=== PATIENT | female | born 1970 | race Caucasian/White ===

== ENCOUNTER 2025-07-22 10:03 | Outpatient (AMB) | payer MEDICARE, MEDICAID, SELFPAY ==
--- NOTE | 2025-07-22 10:30 | MHC.PC.OV ---
Vital Signs 07/22/25 10:59 Height 5 ft 2 in Weight 369 lb 4 oz BMI 67.5 BP 142/78 H Blood Pressure Location Lt femoral Position Sitting Respiration 12 Pulse 86 Pulse Source Pulse Oximeter Temp 97.2 F Temp Source Oral Pulse Oximetry (%) 98 Oxygen Delivery Method Room Air Intake Visit Reasons: [employer] // Diabetes Intake Note: New patient to establish care Radiology Teacher Required: No Allergies lamotrigine (From Lamictal) Allergy (Severe, Verified 07/22/25 10:55) Muscle Pain lithium Allergy (Severe, Verified 07/22/25 10:55) seizures omalizumab (Xolair) Allergy (Severe, Verified 07/22/25 10:34) anaphylaxis Sulfa (Sulfonamide Antibiotics) Allergy (Severe, Verified 07/22/25 10:34) anaphylaxis sulfamethoxazole (From Bactrim) Allergy (Severe, Verified 07/22/25 10:55) Anaphylaxis sumatriptan Allergy (Severe, Verified 07/22/25 10:51) Unknown trimethoprim (From Bactrim) Allergy (Severe, Verified 07/22/25 10:55) Anaphylaxis vortioxetine (From Trintellix) Allergy (Severe, Verified 07/22/25 10:55) serotin toxicity amoxicillin Allergy (Unknown, Verified 07/22/25 10:34) Unknown azithromycin (Zithromax) Allergy (Unknown, Verified 07/22/25 10:34) Unknown furosemide (Lasix) Allergy (Unknown, Verified 07/22/25 10:34) Unknown hydrochlorothiazide Allergy (Unknown, Verified 07/22/25 10:34) Unknown lisinopril Allergy (Unknown, Verified 07/22/25 10:34) Unknown metformin Allergy (Unknown, Verified 07/22/25 10:34) Unknown montelukast (Singulair) Allergy (Unknown, Verified 07/22/25 10:34) Unknown penicillin G Allergy (Unknown, Verified 07/22/25 10:34) Unknown pravastatin Allergy (Unknown, Verified 07/22/25 10:34) Unknown spironolactone Allergy (Unknown, Verified 07/22/25 10:34) Unknown sulfacetamide Allergy (Unknown, Verified 07/22/25 10:34) Unknown gabapentin Allergy (Verified 07/22/25 10:55) night sweats zolair Allergy (Severe, Uncoded 07/22/25 10:55) Anaphylaxis JAYRO INHIBITORS Allergy (Unknown, Uncoded 07/22/25 10:34) Unknown LATEX Allergy (Unknown, Uncoded 07/22/25 10:34) Unknown NSAIDS Allergy (Unknown, Uncoded 07/22/25 10:34) Unknown SHELLFISH Allergy (Unknown, Uncoded 07/22/25 10:34) Unknown Sulfacet-R Allergy (Unknown, Uncoded 07/22/25 10:34) Unknown TREE NUTS Allergy (Unknown, Uncoded 07/22/25 10:34) Unknown Medication List - Last Reviewed 07/22/25 by Bharati Fernandez MA albuterol sulfate 2.5 mg inhalation Q6H PRN alcohol swabs (Alcohol Prep Pads) 1 pad topical TID amlodipine 5 mg PO DAILY ammonium lactate 12% topical atorvastatin 20 mg PO QAM blood sugar diagnostic (FreeStyle Precision Qasim Strips) As directed clonazepam 1 mg PO TID PRN epinephrine 0.3 mL IM ONCE insulin aspart (niacinamide) 100 unit/mL (3 mL) (Fiasp FlexTouch U-100 Insulin) subcut insulin aspart U-100 (Novolog FlexPen U-100 Insulin aspart) 8 - 10 units subcut BID insulin glargine (Basaglar KwikPen U-100 Insulin) 82 units subcut BEDTIME lancets (FreeStyle Lancets) As directed lancets (OneTouch Delica Plus Lancet) As directed levalbuterol tartrate 45 mcg/actuation 2 puffs inhalation Q4-6H levothyroxine 200 mcg PO DAILY levothyroxine 37.5 mcg PO QAM losartan 100 mg PO DAILY mupirocin 2% topical BID pen needle, diabetic (Fidelia 2nd Gen Pen Needle) As directed triamcinolone acetonide 0.1% topical vilazodone (Viibryd) 20 mg PO DAILY vilazodone (Viibryd) 10 mg PO DAILY Tobacco use date assessed: 07/22/25 Dental Screening Dental Screen Date: 07/22/25 Did you have a dental visit in the last 12 months?: Yes Did you have a dental problem in the last 6 months where you did not have access to dental care?: No Was dental information given to patient?: Patient has dentist HPI HPI Comments History of Present Illness Details Qiana 55 y/o F with bilat knee OA, lymphedema, MIRIAN, MDD, DM2 with complications, neuropathy, GERD, HLD, HTN, Hypothyroid, Migraine, Asthma, Urinary incont, CORRINA on CPAP, PCOS, PTSD, Rosacea, Schizoaffective disorder, Seasonal allergies, obesity, Vit D Def, menopause s/p c section, right knee arthroscopy, tonsillectomy Fhx:Mom stroke, DM, heart dz, htn, throid s/p CO; Dad lung ca + smoker; brother alive and well; 2 dtrs one w/ autism 1 with anxiety Health Maintenance Tdap 2023 Pap 07/2023 wnl Mammo 04/25/25 colon casas Specialists: Allergy Dr [facility] Pulm [facility] rehab for lymphedema and hearing center [place] Endo - [facility] referral [facility], Dr Amy Segura in [place], Eye exam 06/2025 @ [facility] Negative for retinopathy, + narrow angle w/o glaucoma DME: CPAP [facility] History of Present Illness - The patient is a 55-year-old female presenting to [facility] with a complex medical hx; previous PCP [facility] records rec'd and reviewed - She reports recent abnormal laboratory results done at [facility]. 07/16/25. I dont have these but have requested & was able to review after the visit. See below. - Diabetes management history: HBA1c improved from 8% in November to 7.1% in June. Weight reduced from 394 to 370 pounds from November to June. - Patient utilizes CGM for diabetes tracking. - managed by [facility] endo in past; wants referral to [facility] endo. 06/16/25 7.1% - Recent diabetic eye exam showed risk for angle closure glaucoma. - Requests referral for diabetic foot care - Psych managed by outside prescriber. Reports serotonin syndrome in the past. - Multiple med allergies - Previous PCP sent her a message to have UA, BNP, Blood cultures, Anti neutrophil cytoplasimic drawn to f/u on labs 07/20/25. I have ordered thse for her - CORRINA on CPAP managed; after the visit she called referrals asking for referral to [facility] Sleep/Neuro. Will hold of until she clarifies this as she is scheduled to see neuro in [facility] for initial consult and has a Sleep/Pulm MD Review of Systems - Constitutional: Reports fatigue and stress. - Endocrinological: Reports prior endocrinological issues; concerns about medication misprescription. - Ophthalmological: Reports narrow ducts but reassured by retinal specialist. - Cardiovascular: Reports family history of congestive heart failure; heart murmur identified. - Metabolic: Reports hyperglycemia, weight loss, and CGM use for diabetes management. - Musculoskeletal: Reports rheumatoid arthritis testing. - Integumentary: Reports leg cramps and nail care issues. - Neurological: Denies recent neurological evaluations. - Psychiatric: Reports ongoing stress and therapy for mood. Physical Exam General: Well developed, well nourished, in no acute distress. Appears stated age. Head: Normocephalic, atraumatic. Eyes: Pupils are equal, round and reactive to light and accommodation. Conjunctivae are clear. Lungs: Clear to auscultation bilaterally. No rales, rhonchi or wheeze noted. Good air flow in all talbert. Heart: Regular rate and rhythm. A heart murmur is noted. Musculoskeletal: Walks w/ walker, slow steady gait; Lymphedema wraps BLE. Not removed for exam. Psych: Mood and affect appropriate. Reports stress and frustration with previous medical care. Results: 07/20/25 wbc 12.4, Neutrophils 7.7, Lymphs 3.8, Bun 26, Albumin 3.7, otherwise normal CMP and CBC, TSH 0.293, Rheum Factor, Anti-CCP Ab, IgG/IgA WNL, ROEL negative Discussion Notes I discussed with the patient the importance of reviewing abnormal lab results and the need for endocrinological consultation. I emphasized the plan to obtain laboratory records to provide a comprehensive assessment. Follow-up will ensure diabetes continues to be well-managed, noting recent improvements in blood glucose levels. We discussed endocrinological consultation to adjust her care plan, particularly for diabetes care and weight management. I acknowledged her past issues with medication prescriptions and agreed to review these. I highlighted that heart murmur auscultation warranted further evaluation with echocardiography. Additionally, I assured her a diabetic foot care referral and the importance of diligent eye exams given her glaucoma risk. We agreed on referrals for additional care services within our network and follow-ups in two weeks to ensure a coordinated care approach. Consent was duly obtained to make referrals and conduct further necessary diagnostic testing, with the patient informed of potential risks and management plans. Patient was given time to ask questions. All questions were answered to their satisfaction. Assessment and Plan 1. Abnormal laboratory results - Obtain and review prior results; plan endocrinological evaluations. - labs reviewed, see above. plan to check UA, BNP, Blood cultures, Anti neutrophil cytoplasimic per previous PCP 2.DM2 - Use CGM, monitor HBA1c; [facility] endo referral 3. Obesity - Support weight management 4. Risk for glaucoma - Ensure periodic follow-up; emphasize glaucoma risk management. 6. Heart murmur - Request echocardiography for cardiovascular assessment. 7. Diabetic foot care - Referral for diabetic foot care initiated. Patient Instructions - Schedule follow-up appointment in two weeks. - Complete referrals for endocrinology and foot care. - Attend echocardiography as scheduled. - Monitor blood sugar regularly using CGM. - Ensure regular eye exams for glaucoma risk. - Follow any dietary or lifestyle advice from the student success advisor. - Contact us if you experience new or worsening symptoms, or have any concerns. Consent Patient was informed and verbally consented to the use of an ambient scribe for clinic note documentation during this visit. Total time spent caring for the patient today was 100 minutes. This includes time spent before the visit reviewing the chart, time spent during the visit, and time spent after the visit on documentation, reviewing laboratory results, diagnostic imaging, medications, performing a medically necessary evaluation, counseling on diagnoses, care coordination, ordering appropriate tests, ordering appropriate medications, review of tests performed by other providers, reporting test results with the patient, communication with other healthcare providers. [facility] Medical History (Updated 07/24/25 @ 16:51 by Marian Lomeli, [facility]) Anxiety and depression Arthritis Asthma Diabetes Edema GERD (gastroesophageal reflux disease) Headache High cholesterol HTN (hypertension) Hx of mammogram (~04/2025) IBS (irritable bowel syndrome) Incontinence Neuropathy Osteoarthritis Panic disorder Swelling Thyroid disorder Torn meniscus Surgical History (Updated 07/22/25 @ 11:08 by Bharati Fernandez MA) History of tonsillectomy Hx of colonoscopy (~2018) Previous section Family History (Updated 07/22/25 @ 11:13 by Bharati Fernandez MA) Mother Asthma HTN (hypertension) High cholesterol Diabetes Cardiovascular disease Thyroid disorder Mental health disorder Maternal Grandmother HTN (hypertension) High cholesterol Cardiovascular disease Father High cholesterol Cardiovascular disease Lung cancer Mental health disorder Paternal Grandfather No problems noted. Maternal Grandfather Cardiovascular disease Paternal Grandmother Leukemia Social History (Updated 07/22/25 @ 10:30 by Bharati Fernandez MA) Housing: House Alcohol intake: never Patient Tobacco Use Status: Never used Tobacco e-Cigarette/Vaping Use: Never Used Second Hand Smoke Exposure: No Current occupational status: disabled Cognitive needs: No Hearing needs: Yes (left hearing aide) Vision needs: Yes (wear glasses) Questionnaire PHQ-9 Over the last 2 weeks, how often have you been bothered by any of the following problems? 1. Little interest or pleasure in doing things: not at all 2. Feeling down, depressed, or hopeless: not at all 3. Trouble falling or staying asleep, or sleeping too much: nearly every day 4. Feeling tired or having little energy: nearly every day 5. Poor appetite or overeating: several days 6. Feeling bad about yourself - or that you are a failure or have let yourself or your family down: not at all 7. Trouble concentrating on things, such as reading the newspaper or watching television: more than half the days 8. Moving or speaking so slowly that other people could have noticed. Or the opposite - being so fidgety or restless that you have been moving around a lot more than usual: several days 9. Thoughts that you would be better off or of hurting yourself in some way: not at all Total score: 10 Depression Screening Interpretation: Positive Depression Screening Follow-up: Existing condition and In treatment Depression Screening Done: Yes 20811 - PHQ-9 Billing: Yes Source: Developed by Drs. Timbo Newman, Gin Correa, Sunday Chirinos and colleagues, with an educational lauri from [employer]. Thrive Questionnaire Date Thrive assessed: 07/22/25 I am a: Patient What is your living situation today?: I have a steady place to live Within the past 12 months, did the food you bought not last and you didn't have the money to get more?: Often true Within the past 12 months, did you worry whether your food would run out before you got money to buy more?: Often true Do you have trouble paying for medicines?: No Do you have trouble getting transportation to medical appointments?: Yes Do you have trouble paying your heating and electricity bill?: Yes Do you have trouble taking care of your child, family member or friend?: No Do you have trouble with day-to-day activities such as bathing, preparing meals, shopping, managing finances, etc.?: No Are you currently unemployed and looking for a job?: No Are you interested in more education?: No Please select the resources that you would like help with: None Currently or been in a relationship where the following occur: No concerns reported THRIVE Score: 4 AUDIT C Alcohol Use Questionnaire (AUDIT-C) 1. How often do you have a drink containing alcohol?: Never 2. How many drinks containing alcohol do you have on a typical day when you are drinking?: 1 or 2 3. How often do you have six or more drinks on one occasion?: Never Total Score: 0 Score Reviewed/Action Taken: Yes MIRIAN-7 AMB Questionnaire MIRIAN-7 Date MIRIAN - 7 assessed: 07/22/25 Feeling nervous, anxious, or on edge: 3 = Nearly every day Not being able to stop or control worryin = Nearly every day Worrying too much about different things: 3 = Nearly every day Trouble relaxin = Nearly every day Being so restless that it is hard to sit still: 3 = Nearly every day Becoming easily annoyed or irritable: 3 = Nearly every day Feeling afraid as if something awful might happen: 2 = More than half the days Total MIRIAN-7 score (0-4 normal; 5-9 mild; 10-14 moderate; 15-21 severe): 20 Source: Developed by Drs. Timbo Newman, Gin Correa, Sunday Chirinos and colleagues, with an educational lauri from [employer]. MIRIAN-7 Assessment Billing MIRIAN-7 Assessment Tool: MIRIAN-7 Assessment 08508 Physical exam (Primary Care) Vital Signs: Last Vital Signs Temp 97.2 F 07/22/25 10:59 Pulse 86 07/22/25 10:59 Resp 12 07/22/25 10:59 BP 142/78 H 07/22/25 10:59 Pulse Ox 98 07/22/25 10:59 Oxygen Delivery Method Room Air 07/22/25 10:59 BMI result Body Mass Index 67.5 Tobacco/Smoking Status: Tobacco use Status Tobacco use date assessed 07/22/25 07/22/25 10:34 Patient Tobacco Use Status Never used Tobacco 07/22/25 10:34 e-Cigarette/Vaping Use Never Used 07/22/25 11:00 PHQ-9: PHQ-9 Score PHQ-9: Total score 10 07/24/25 14:56 Depression Screening Interpretation: Positive Depression Screening Follow-up: Existing condition and In treatment Thrive Assessment: Date of Thrive Assessment Date Thrive assessed 07/22/25 07/22/25 10:34 Currently or been in a relationship where the following occur: No concerns reported Coding Level of Care Code New Pt Level 5 (89179) Complex EM visit Add On G2211 Diagnoses Encounter to establish care with new provider Z76.89 BMI 60.0-69.9, adult Z68.44 Diabetes mellitus with complication E11.8 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 E06.3 Hypothyroidism type: due to Gene's thyroiditis Uses self-applied continuous glucose monitoring device Z97.8 Diabetic polyneuropathy associated with type 2 diabetes mellitus E11.42 Diabetes mellitus complication detail: diabetic polyneuropathy Diabetes mellitus type: type 2 Heart murmur on physical examination R01.1 MIRIAN (generalized anxiety disorder) F41.1 Moderate episode of recurrent major depressive disorder F33.1 Major depression episode severity: moderate Schizoaffective disorder, bipolar type F25.0 Schizoaffective disorder type: bipolar Lymphedema I89.0 Hyperlipidemia associated with type 2 diabetes mellitus E11.69; E78.5 Hypertension complicating diabetes E11.9; I10 Migraine without aura and without status migrainosus, not intractable G43.009 Intractability: not intractable Status migrainosus presence: without status migrainosus Mild intermittent asthma in adult without complication J45.20 Multiple drug allergies Z88.9 Mixed stress and urge urinary incontinence N39.46 Urinary Incontinence type: mixed stress and urge incontinence CORRINA on CPAP G47.33 Vitamin D deficiency E55.9 Encounter for brief counseling about health care proxy document Z71.89 Does mobilize using orthotic device Z99.89 Low serum cortisol level R79.89 Elevated WBC count D72.829 CPT Codes PROLONG OUTPT/OFFICE VIS - G2212 Additional Codes MIRIAN-7 Assessment Billing - MIRIAN-7 Assessment Tool: MIRIAN-7 Assessment 49014 ([id number]) PHQ-9 - 96143 - PHQ-9 Billing: Yes ([id number]) Assessment & Plan Assessment & Plan (1) Encounter to establish care with new provider: Code(s): Z76.89 - Persons encountering health services in other specified circumstances Category: Medical (2) BMI 60.0-69.9, adult: Code(s): Z68.44 - Body mass index [BMI] 60.0-69.9, adult Category: Medical (3) Diabetes mellitus with complication: Comment: neuropathy and HTN refer to [facility] Eye Exam 2024 Refer to [facility] podiatry for foot care Code(s): E11.8 - Type 2 diabetes mellitus with unspecified complications Category: Medical (4) Hypothyroid: Code(s): E03.9 - Hypothyroidism, unspecified Category: Medical Qualifiers: Hypothyroidism type: due to Gene's thyroiditis Qualified Code(s): E06.3 - Autoimmune thyroiditis (5) Uses self-applied continuous glucose monitoring device: Comment: CGM Code(s): Z97.8 - Presence of other specified devices Category: Medical (6) Diabetic neuropathy: Code(s): E11.40 - Type 2 diabetes mellitus with diabetic neuropathy, unspecified Category: Medical Qualifiers: Diabetes mellitus complication detail: diabetic polyneuropathy Diabetes mellitus type: type 2 Qualified Code(s): E11.42 - Type 2 diabetes mellitus with diabetic polyneuropathy (7) Heart murmur on physical examination: Code(s): R01.1 - Cardiac murmur, unspecified Category: Medical (8) MIRIAN (generalized anxiety disorder): Comment: MANAGED BY OUTSIDE PRESCRIBER AND COUNSELOR Code(s): F41.1 - Generalized anxiety disorder Category: Medical (9) MDD (major depressive disorder), recurrent episode: Comment: MANAGED BY OUTSIDE PRESCRIBER AND COUNSELOR Code(s): F33.9 - Major depressive disorder, recurrent, unspecified Category: Medical Qualifiers: Major depression episode severity: moderate Qualified Code(s): F33.1 - Major depressive disorder, recurrent, moderate (10) Schizoaffective disorder: Comment: MANAGED BY OUTSIDE PRESCRIBER AND COUNSELOR Code(s): F25.9 - Schizoaffective disorder, unspecified Category: Medical Qualifiers: Schizoaffective disorder type: bipolar Qualified Code(s): F25.0 - Schizoaffective disorder, bipolar type (11) Lymphedema: Code(s): I89.0 - Lymphedema, not elsewhere classified Category: Medical (12) Hyperlipidemia associated with type 2 diabetes mellitus: Code(s): E11.69 - Type 2 diabetes mellitus with other specified complication; E78.5 - Hyperlipidemia, unspecified Category: Medical (13) Hypertension complicating diabetes: Code(s): E11.9 - Type 2 diabetes mellitus without complications; I10 - Essential (primary) hypertension Category: Medical (14) Migraine without aura: Comment: managed by Neuro in [facility] Code(s): G43.009 - Migraine without aura, not intractable, without status migrainosus Category: Medical Qualifiers: Intractability: not intractable Status migrainosus presence: without status migrainosus Qualified Code(s): G43.009 - Migraine without aura, not intractable, without status migrainosus (15) Mild intermittent asthma in adult without complication: Comment: managed by Pulm at [facility] Code(s): J45.20 - Mild intermittent asthma, uncomplicated Category: Medical (16) Multiple drug allergies: Code(s): Z88.9 - Allergy status to unspecified drugs, medicaments and biological substances Category: Medical (17) Urinary incontinence: Comment: uses incont pads/briefs Code(s): R32 - Unspecified urinary incontinence Category: Medical Qualifiers: Urinary Incontinence type: mixed stress and urge incontinence Qualified Code(s): N39.46 - Mixed incontinence (18) CORRINA on CPAP: Comment: managed by [facility] olga lidia Mary Code(s): G47.33 - Obstructive sleep apnea (adult) (pediatric) Category: Medical (19) Vitamin D deficiency: Code(s): E55.9 - Vitamin D deficiency, unspecified Category: Medical (20) Encounter for brief counseling about health care proxy document: Comment: HCP ON FILE, SCANNED INTO CHART Code(s): Z71.89 - Other specified counseling Category: Medical (21) Does mobilize using orthotic device: Comment: BILAT AFO/LYMPHEDEMA WRAPS/WALKER Code(s): Z99.89 - Dependence on other enabling machines and devices Category: Medical (22) Low serum cortisol level: Code(s): R79.89 - Other specified abnormal findings of blood chemistry Category: Medical (23) Elevated WBC count: Code(s): D72.829 - Elevated white blood cell count, unspecified Category: Medical Plan . Orders: Orders UA CC w/rflx Micro + Cult Today D72.829 - Elevated white blood cell count, unspecified, R30.0 - Dysuria CA echo transthoracic complete 07/22/25 R01.1 - Cardiac murmur, unspecified Blood Culture X2 Today D72.829 - Elevated white blood cell count, unspecified ANCA Vasculitides Today D72.829 - Elevated white blood cell count, unspecified Referrals Endocrinology Referral E11.8 - Type 2 diabetes mellitus with unspecified complications, Z97.8 - Presence of other specified devices Podiatry Referral E11.40 - Type 2 diabetes mellitus with diabetic neuropathy, unspecified Medications: New blood-glucose sensor (FreeStyle Etienne 3 Sensor device) As directed Patient Instructions: Walk-In Care (Urgent Care): We Make it Easy Walk-in for urgent medical issues such as: ? Seasonal Allergies ? Insect Bites ? Cough ? Diarrhea ? Acute Asthma Attacks ? Back, Knee or Joint Pain ? Ear Infection ? Fever without a Rash ? Headaches ? Nausea ? [place] [facility], Rash or Skin Irritation ? Sore Throat ? Sports Physicals ? Vomiting Most insurances are accepted. Patients do not need to be part of the [facility] to seek care at the walk-in clinic. Locations [facility] , [place] [address] ? [phone] [facility] Walk-In Care in [place] provides services to ages 18 and over. Open Sunday-Sunday: 7 a.m. to 5 p.m. and Sunday: 9 a.m. to 3 p.m.* *Hours may vary due to staffing availability. To confirm Walk-In Care hours in [place], please call [phone]. [address] [place] [address] ? [phone] [facility] Walk-In Care in [place] provides services to ages 12 and over. Open Sunday-Sunday: 8 a.m. to 5 p.m. Hours may vary due to staffing availability. To confirm Walk-In Care hours in [place], please call [phone]. LABORATORY SERVICES: [facility] Lab ? Primary Location [address] [place] [address] Sunday through Sunday 6:00 AM ? 5:00 PM Sunday 7:00 AM ? 11:00 AM* [phone] [facility] [facility] Lab is centrally located near the front entrance of the [facility] for easy outpatient access. Convenient parking is provided for outpatients. *Hours may vary due to staffing availability. To confirm Laboratory hours for any location, please call [phone]. Offsite Location For your convenience, we offer offsite laboratory draw stations at the following locations: [address] [place] [address], [facility] ? [facility] [address] [facility], [address], [place] Sunday through Sunday 7:30 AM ? 1:00 PM* [phone] *Hours may vary due to staffing availability. To confirm Laboratory hours for any location, please call [phone]. [place] ? [address] Sunday through Sunday 6:00 AM ? 3:30 PM* Sunday 6:30 AM ? 3 PM* [phone] *Hours may vary due to staffing availability. To confirm Laboratory hours for any location, please call [phone] [place] [address] Sunday through Sunday 7:30 AM ? 4:00 PM* [phone] *Hours may vary due to staffing availability. To confirm Laboratory hours for any location, please call [phone] [place] [address] Sunday through 9:00 AM ? 4:00 PM* *Hours may vary due to staffing availability. To confirm Laboratory hours for any location, please call [phone]. Appointments are not necessary. Walk-ins are welcome. Like all the departments throughout the [facility], our Lab undergoes frequent reviews to ensure the quality and accuracy of test results, and our staff takes special pride in its status as a nationally accredited facility. Patient Portal: [facility] ONE PATIENT. ONE RECORD. BETTER CARE. [facility] & [facility] has a fully integrated, cutting-edge mobile electronic health information system that has revolutionized the way we care for our patients and manage our organization. This system improves communication and coordination enabling us to provide safe, higher-quality care, and an overall positive experience for staff and patients. Our first priority, as always, is to deliver the highest quality care possible. The system is running in the background supporting that priority. This portal is for all [facility] services and practices. If you are experiencing any technical difficulties with enrolling or logging into the Patient Portal please complete the [facility] Patient Portal Technical Support Form. [facility] now offers a new secure on-line interactive tool for patients to review their health information ? ?Patient Portal. This interactive web portal will enable patients and their families to take an active role in their care by providing easy, secure access to their health information via the internet. The Patient Portal provides patients with instant access to their health information, including laboratory results, medications, allergies, demographic information, visit history, and more. In addition to managing their own care, parents and health care proxies with authorized consent will appreciate the ability to access the records of those individuals for whom they provide care. Please note: if you wish to gain access (Proxy) to another patient?s portal, you will be required to come to the Medical Records Department in person at [facility]. Both the patient giving proxy access and the proxy will need to provide photo identification and complete the appropriate authorization. The Patient Portal also allows track their appointments online. The [facility] Patient Portal also saves patients time by allowing them to submit updates to their demographic and contact information prior to their visits. Portal email notifications will also alert patients to any new activity on their portal, such as test results and new appointments. In order to initially enroll in the [facility] Patient Portal, you will need to enter some required information including the following: your [facility] Medical Record number your personal home email address name date of Please note: In order to enroll in the [facility] Patient Portal, we need to have your email address on file in your electronic medical record. ?The email address needs to be specific for one person (yourself) in order for your Portal enrollment to be successful. ?You can update your email address in person with our Registration staff when you are registering for a hospital visit. ?Otherwise, you will need to come to the Health Information Management (Medical Records) Department at [facility]. ?We are open from Sunday ? Sunday from 7:30 a.m. ? 4:30 p.m. ?You will be required to present a photo id. Once you have successfully enrolled in the Patient Portal, you will receive a one-time user id and password for the Portal, sent to your email address. ?This will allow you to log into the Patient Portal within 99 hrs and reset your own logon id and password, and define personal security questions. ?Once your permanent login and password have been set, you can log into the [facility] Patient Portal at any time via the blue button above or from the Portal Logon button on any page of the [facility] website. [facility] and [facility] encourage all of our patients to enroll in Patient Portal as it presents a valuable opportunity for patients and their families to actively participate in their care and stay healthy Welcome to [facility]. ?We look forward to working with you.
[2025-07-22 10:59] VITALS: BP 142/78; PULSE 86; RESP 12; TEMP 36.2; O2SAT 98; BMI 67.5
--- OUTSIDE RECORDS SUMMARY | 2025-07-22 12:11 | XMS_ITS | Encounter Summary ---
Author Organization [employer] Address [address] [facility] 7t [place] [address] Care Team Providers Care Trailhead Construction Worker Name Role Phone Francheska Tucker MADELEINE Primary Care Provider [phone] Lei Thacker Unavailable Unavailable Sharmila Azar DO Primary Care Provider [phone] Inactive/Transferred Primary Care Provider Unava ilable Encounter Details Date Type Department Care Team (Late st Contact Info) Description 12/19/2023 Orders Only [facility] MEDICAL [address] [place] [address] Provider, MD Sharad Social History Tobacco Use Types Packs/Day Years Used Date Smoking Tobacco: Never Passive Smoke Exposure: Never Smokeless Tobacco: Never Alcohol Use Standard Drinks/Week Comments Never 0 (1 standard drink = 0.6 oz pur e alcohol) Alcohol Answer Date Recorded How often do you have a drink containing alcohol ? 0 12/11/2023 How many drinks containing a lcohol do you have on a typical day when you are drinking? 0 12/11/2023 How often do you have six or more drinks on one occasion? 0 12/11/2023 Housing Stability Answer Date Recorded What is your housing situation today? I have ann davis 12/07/[address] you li ve. Do you have problems with any of the following? None of the above 12/07/2023 Food Insecurity Answer Date Recorded Within the past 12 months, y ou worried that your food would run out before you got money to buy more: Never True 12/11/2023 Within the past 12 months,th e food you bought just didn't last and you didn't have enough money to get more: Never True 04/2024 Transportation Answer Date Recorded In the past 12 months, has l ack of transportation kept you from medical appts, meetings, work or from getting things needed for daily living? No 12/11/2023 Intimate Partner Violence Answer Date R ecorded Within the last year, have y ou been afraid of your partner or ex-partner? 2 12/11/2023 Within the last year, have y ou been humiliated or emotionally abused in other ways by your partner or ex-partner? 2 Within the last year, have y ou been kicked, hit, slapped, or otherwise physically hurt by your partner or ex-partner? 2 12/11/2023 Within the last year, have y ou been raped or forced to have any kind of sexual activity by your partner or ex-partner? 2 12/11/2023 Utilities Answer Date Recorded In the past 12 months, has t he electric, gas, oil or water company threatened to shut off services in your home? No 12/11/2023 Depression Answer Date Recorded Patient Health Questionnaire-2 Score 0 12/01/2022 Comments No Sex and Gender Information Value Date Recorded Sex Assigned at Female 10/27/2022 2:45 PM EST Legal Sex Female 8:36 PM EDT Gender Identity Female 10/27/2022 2:45 PM EST Sexual Orientation Straight 11/30/2022 10 :33 AM EST documented as of this encounter Plan of Treatment Not on file documented as of this encounter Procedures Procedure Name Priority Date/Time Associated Diagnosis Comments DIABETES EYE EXAM Routine 03/14/2023 5:12 PM EDT documented in this encounter Results * Diabetes Eye Exam (03/14/2023 5:12 PM EDT) us Historical Provider HEALTH MAINTENANCE Final Result documented in this encounter Visit Diagnoses Not on filedocumented in this encounter Care Teams Trailhead Construction Worker Relationship Specialty Start Date End Date Francheska Tucker FNP [address] [place] [address] PCP - General Family Medicine 10/25/23 11/01/24 Sharmila Azar DO [address] [place] [address] PCP - General Family Medicine 11/02/24 06/17/25 Inactive/Transferred PCP - General 06/18/25 06/18/25 Lei Thacker Health Navigator 09/17/24 documented as of this encounter
--- OUTSIDE RECORDS SUMMARY | 2025-07-22 12:11 | XMS_ITS | Encounter Summary ---
Author Organization [employer] Address [address] [place] [address] 7t [place] [address] Care Team Providers Care Auto Body Service Mechanic Name Role Phone Shilpa Miller CNP Primary Care Provider [phone] Francheska Tucker Primary Care Provider [phone] Lei Thacker Unavailable Unavailable Sharmila Azar DO Primary Care Provider [phone] Inactive/Transferred Primary Care Provider Unava ilable Encounter Details Date Type Department Care Team (Late st Contact Info) Description 01/31/2023 Abstract Pat [facility] MEDICAL [address] [place] [address] Shilpa Miller CNP [address] [place] [address] Social History Tobacco Use Types Packs/Day Years Used Date Smoking Tobacco: Never Smokeless Tobacco: Never Tobacco Cessation:Counseling Given: Not Answered Alcohol Use Standard Drinks/Week Comments Never 0 (1 standard drink = 0.6 oz pur e alcohol) Depression Answer Date Recorded Patient Health Questionnaire-2 Score 0 12/01/2022 Comments No Sex and Gender Information Value Date Recorded Sex Assigned at Female 10/27/2022 2:45 PM EST Legal Sex Female 8:36 PM EDT Gender Identity Female 10/27/2022 2:45 PM EST Sexual Orientation Straight 11/30/2022 10 :33 AM EST COVID-19 Exposure Response Date Recorded In the last 10 days, have yo u been in contact with someone who was confirmed or suspected to have Coronavirus/COVID-19? No / Unsure 02/01/2023 3:58 PM EDT documented as of this encounter Plan of Treatment Not on file documented as of this encounter Visit Diagnoses Not on filedocumented in this encounter Care Teams Auto Body Service Mechanic Relationship Specialty Start Date End Date Shilpa Miller CNP [address] [place] [address] PCP - General Family Medicine 10/16/22 10/24/23 Francheska Tucker FNP [address] [place] [address] PCP - General Family Medicine 10/25/23 11/01/24 Sharmila Azar DO [address] [place] [address] PCP - General Family Medicine 11/02/24 06/17/25 Inactive/Transferred PCP - General 06/18/25 06/18/25 Lei Thacker Health Navigator 09/17/24 documented as of this encounter
--- OUTSIDE RECORDS SUMMARY | 2025-07-22 12:11 | XMS_ITS | Encounter Summary ---
Author Organization [employer] Address [address] [place] [address] 7 [place] [address] Care Team Providers Care Navy Airspace Officer Name Role Phone Lei Thacker Unavailable Unavailable Sharmila Azar DO Primary Care Provider [phone] Inactive/Transferred Primary Care Provider Unava ilable Reason for Visit * Reason Comments Med Refill Encounter Details Date Type Department Care Team (Late st Contact Info) Description 03/02/2025 Refill Pat [facility] MEDICAL [address] [place] [address] Sharmila Azar DO [address] [place] [address] Anxiety; PTSD (post-traumatic stress disorder) Social History Tobacco Use Types Packs/Day Years [...] more drinks on one occasion? 0 12/11/2023 Depression Answer Date Recorded Patient Health Questionnaire-9 Score 10 10/21/2024 Patient Health Questionnaire-9 Score 10 10/21/2024 Last PHQ-9: Questionnaire Data Not on file 1 12/22/2023 Housing Stability Answer Date Recorded What is [...] Answer Date Recorded Patient Health Questionnaire-2 Score 1 10/21/2024 Internet Access Answer Date Recorded Internet Access Q1 Yes 11/01/2024 Internet Access Q2 Not on file 11/01/2024 Education Answer Date Recorded What is the highest level of school you have completed or the highest degree you have received? Some college, no degree 03/15/2024 Comments No Sex and Gender Information Value Date Recorded Sex Assigned at Female 10/27/2022 2:45 PM EST Legal Sex Female 8:36 PM EDT Gender Identity Female 10/27/2022 2:45 PM EST Sexual Orientation Straight 11/30/2022 10 :33 AM EST Occupation Industry Job Start Date Job End Date Unemployeed Not on file Not on file Not on file documented as of this encounter Miscellaneous Notes * Telephone Encounter - Kameron Lombardi - 03/03/2025 1:09 PM EDT Rx was sent in another TE today documented in this encounter Plan of Treatment Not on file documented as of this encounter Visit Diagnoses Diagnosis Anxiety Anxiety state, unspecified PTSD (post-traumatic stress disorder) Posttraumatic stress disorder documented in this encounter Additional Health Concerns Assessment Noted Time PHQ-9 Depression Total Score: 10 10/21/ 024 7:39 AM EST documented as of this encounter Care Teams Navy Airspace Officer Relationship Specialty Start Date End Date Sharmila Azar DO [address] [place] [address] PCP - General Family Medicine 11/02/24 06/17/25 Inactive/Transferred PCP - General 06/18/25 06/18/25 Lei Thacker Health Navigator 09/17/24 documented as of this encounter
--- OUTSIDE RECORDS SUMMARY | 2025-07-22 12:11 | XMS_ITS | Encounter Summary ---
Author Organization [employer] Address [address] [facility] 7t [place] [address] Care Team Providers Care Programmer Engineering And Scientific Name Role Phone Francheska Tucker Primary Care Provider [phone] Lei Thacker Unavailable Unavailable Sharmila Azar DO Primary Care Provider [phone] Inactive/Transferred Primary Care Provider Unava ilable Reason for Visit * Reason Comments Med Change Request Encounter Details Date Type Department Care Team (Late st Contact Info) Description 05/26/2024 Oneyda Stewart [facility] MEDICAL [address] [place] [address] Francheska Tucker FNP [address] [place] [address] Type 2 diabetes mellitus with diabetic polyneuropathy, with long-term current use of insulin ([facility]) Social History Tobacco Use Types Packs/Day Years [...] Answer Date Recorded Patient Health Questionnaire-9 Score 20 03/24/2024 Patient Health Questionnaire-9 Score 20 03/24/2024 Last PHQ-9: Questionnaire Data Not on file 0 03/24/2024 Housing Stability Answer Date Recorded What is [...] Answer Date Recorded Patient Health Questionnaire-2 Score 6 03/24/2024 Education Answer Date Recorded What is the [...] on file documented as of this encounter Plan of Treatment Not on file documented as of this encounter Visit Diagnoses Diagnosis Type 2 diabetes mellitus with diabetic polyneuropathy, with long-term current use of insulin ([facility]) documented in this encounter Additional Health Concerns Assessment Noted Time PHQ-9 Depression Total Score: 20 024 7:38 AM EDT documented as of this encounter Care Teams Programmer Engineering And Scientific Relationship Specialty Start Date End Date Francheska Tucker FNP [address] [place] [address] PCP - General Family Medicine 10/25/23 11/01/24 Sharmila Azar DO [address] [place] [address] PCP - General Family Medicine 11/02/24 06/17/25 Inactive/Transferred PCP - General 06/18/25 06/18/25 Lei Thacker Health Navigator 09/17/24 documented as of this encounter
--- OUTSIDE RECORDS SUMMARY | 2025-07-22 12:11 | XMS_ITS | Encounter Summary ---
Author Organization [employer] Address [address] [place] [address] 7 [place] [address] Care Team Providers Care Field Artillery Operations Man Name Role Phone Lei Thacker Unavailable Unavailable Sharmila Azar DO Primary Care Provider [phone] Inactive/Transferred Primary Care Provider Unava ilable Reason for Visit * Reason Comments Med Change Request Encounter Details Date Type Department Care Team (Late st Contact Info) Description 03/06/2025 Oneyda Stewart [facility] MEDICAL [address] [place] [address] Sharmila Azar DO [address] [place] [address] Type 2 diabetes mellitus with diabetic polyneuropathy, with long-term current use of insulin ([facility]) Social History Tobacco Use Types Packs/Day [...] encounter Miscellaneous Notes * Telephone Encounter - Krysta Mcclure LPN - 03/09/2025 8:38 AM EDT Pa done documented in this encounter Plan of Treatment Not on file documented as of this encounter Visit Diagnoses Diagnosis Type 2 diabetes mellitus with diabetic polyneuropathy, with long-term current use of insulin ([facility]) documented in this encounter Additional Health Concerns Assessment Noted Time PHQ-9 Depression Total Score: 10 024 7:39 AM EST documented as of this encounter Care Teams Field Artillery Operations Man Relationship Specialty Start Date End Date Sharmila Azar DO [address] [place] [address] PCP - General Family Medicine 11/02/24 06/17/25 Inactive/Transferred PCP - General 06/18/25 06/18/25 Lei Thacker Health Navigator 09/17/24 documented as of this encounter
--- OUTSIDE RECORDS SUMMARY | 2025-07-22 12:11 | XMS_ITS | Encounter Summary ---
Author Organization [employer] Address [address] [place] [address] 7t [place] [address] Care Team Providers Care Hop Strainer Name Role Phone Francheska Tucker MADELEINE Primary Care Provider [phone] Lei Thacker Unavailable Unavailable Sharmila Azar DO Primary Care Provider [phone] Inactive/Transferred Primary Care Provider Unava ilable Encounter Details Date Type Department Care Team (Late st Contact Info) Description 06/25/2024 Orders Only [facility] MEDICAL [address] [place] [address] Provider, MD Sharad Social History Tobacco Use [...] the past 12 months, has t he [employer], gas, oil or water [employer] threatened to shut off services in your [...] Associated Diagnosis Comments DIABETES EYE EXAM Routine 05/28/2024 5:27 PM EDT documented in this encounter Results * Diabetes Eye Exam (05/28/2024 5:27 PM EDT) us Historical Provider HEALTH MAINTENANCE Final Result documented in this encounter Visit Diagnoses Not on filedocumented in this encounter Additional Health Concerns Assessment Noted Time PHQ-9 Depression Total Score: 20 024 7:38 AM EDT documented as of this encounter Care Teams Hop Strainer Relationship Specialty Start Date End Date Francheska Tucker FNP [address] [place] [address] PCP - General Family Medicine 10/25/23 11/01/24 Sharmila Azar DO [address] [facility] [place] [address] PCP - General Family Medicine 11/02/24 06/17/25 Inactive/Transferred PCP - General 06/18/25 06/18/25 Lei Thacker Health Navigator 09/17/24 documented as of this encounter
--- OUTSIDE RECORDS SUMMARY | 2025-07-22 12:11 | XMS_ITS | Encounter Summary ---
Author Organization [employer] Address [address] [facility] 7t [place] [address] Care Team Providers Care Farm Reporter Name Role Phone Francheska Tucker Primary Care Provider [phone] Lei Thacker Unavailable Unavailable Sharmila Azar DO Primary Care Provider [phone] Inactive/Transferred Primary Care Provider Unava ilable Reason for Visit * Reason Comments Med Change Request Encounter Details Date Type Department Care Team (Late st Contact Info) Description 2024 Oneyda Stewart [facility] MEDICAL [address] [place] [address] Francheska Tucker FNP [address] [place] [address] Type 2 diabetes mellitus with diabetic polyneuropathy, with long-term current use of insulin ([facility]) Social History Tobacco Use Types Packs/Day [...] encounter Miscellaneous Notes * Telephone Encounter - Dana Hamilton RN - 05/26/2024 4:20 PM EDT Placed call to patient who states she is currently taking Basaglar. documented in this encounter Plan of Treatment Not on file documented as of this encounter Visit Diagnoses Diagnosis Type 2 diabetes mellitus with diabetic polyneuropathy, with long-term current use of insulin ([facility]) documented in this encounter Additional Health Concerns Assessment Noted Time PHQ-9 Depression Total Score: 20 024 7:38 AM EDT documented as of this encounter Care Teams Farm Reporter Relationship Specialty Start Date End Date Francheska Tucker FNP [address] [place] [address] PCP - General Family Medicine 10/25/23 11/01/24 Sharmila Azar DO [address] [place] [address] PCP - General Family Medicine 11/02/24 06/17/25 Inactive/Transferred PCP - General 06/18/25 06/18/25 Lei Thacker Health Navigator 09/17/24 documented as of this encounter
--- OUTSIDE RECORDS SUMMARY | 2025-07-22 12:11 | XMS_ITS | Encounter Summary ---
Author Organization [employer] Address [address] [place] [address] 7t [place] [address] Care Team Providers Care Cafeteria Manager Name Role Phone Francheska Tucker MADELEINE Primary Care Provider [phone] Lei Thacker Unavailable Unavailable Sharmila Azar DO Primary Care Provider [phone] Inactive/Transferred Primary Care Provider Unava ilable Reason for Visit * Reason Onset Date Comments Med Refill 05/21/2024 Encounter Details Date Type Department Care Team (Late st Contact Info) Description 05/21/2024 Refill Pat [facility] MEDICAL [address] [place] [address] Shilpa Miller, MARIA C [address] [place] [address] Type 2 diabetes mellitus with diabetic polyneuropathy, with long-term current use of insulin ([facility]) Social History Tobacco Use Types Packs/Day [...] encounter Miscellaneous Notes * Telephone Encounter - PJ Harmon - 05/23/2024 4:23 PM EDT Left another VM I am going to send a [employer] message. documented in this encounter Plan of Treatment Not on file documented as of this encounter Visit Diagnoses Diagnosis Type 2 diabetes mellitus with diabetic polyneuropathy, with long-term current use of insulin ([facility]) documented in this encounter Additional Health Concerns Assessment Noted Time PHQ-9 Depression Total Score: 20 024 7:38 AM EDT documented as of this encounter Care Teams Cafeteria Manager Relationship Specialty Start Date End Date Francheska Tucker FNP [address] [facility] [place] [address] PCP - General Family Medicine 10/25/23 11/01/24 Sharmila Azar DO [address] [facility] [place] [address] PCP - General Family Medicine 11/02/24 06/17/25 Inactive/Transferred PCP - General 06/18/25 06/18/25 Lei Thacker Health Navigator 09/17/24 documented as of this encounter
--- OUTSIDE RECORDS SUMMARY | 2025-07-22 12:11 | XMS_ITS | Encounter Summary ---
Author Organization [employer] Address [address] [place] [address] 7 [place] [address] Care Team Providers Care Construction Millwright Name Role Phone Lei Thacker Unavailable Unavailable Sharmila Azar DO Primary Care Provider [phone] Inactive/Transferred Primary Care Provider Unava ilable Reason for Visit * Reason Comments Med Change Request Encounter Details Date Type Department Care Team (Late st Contact Info) Description 01/26/2025 Oneyda Stewart [facility] [address] [place] [address] Sharmila Azar DO [address] [place] [address] Type 2 diabetes mellitus with diabetic polyneuropathy, with long-term current use of insulin ([facility]) Social History Tobacco Use Types Packs/Day Years [...] polyneuropathy, with long-term current use of insulin ([facility]) documented in this encounter Additional Health Concerns Assessment Noted Time PHQ-9 Depression Total Score: 10 024 7:39 AM EST documented as of this encounter Care Teams Construction Millwright Relationship Specialty Start Date End Date Sharmila Azar [address] [place] [address] PCP - General Family Medicine 11/02/24 06/17/25 Inactive/Transferred PCP - General 06/18/25 06/18/25 Lei Thacker Health Navigator 09/17/24 documented as of this encounter
--- OUTSIDE RECORDS SUMMARY | 2025-07-22 12:11 | XMS_ITS | Encounter Summary ---
Author Organization [employer] Address [address] [place] [address] 7t [place] [address] Care Team Providers Care Experience Design Director Name Role Phone Francheska Tucker MADELEINE Primary Care Provider [phone] Lei Thacker Unavailable Unavailable Sharmila Azar DO Primary Care Provider Inactive/Transferred Primary Care Provider Unava ilable Reason for Visit * Reason Comments Med Change Request Encounter Details Date Type Department Care Team (Late st Contact Info) Description 01/14/2024 Oneyda Stewart [facility] [address] [place] [id number] Shilpa Miller, RN CARDIOLOGY [address] [place] [address] Type 2 diabetes mellitus with diabetic polyneuropathy, with long-term current use of insulin ([facility]) Social History Tobacco Use [...] AM EST documented as of this encounter Miscellaneous Notes * Telephone Encounter - Luiza Mora CMA - 01/17/2024 8:52 AM EDT Yellow rX was filled out yesterday and faxed to [employer] there was another TE on this. documented in this encounter Plan of Treatment Not on file documented as of this encounter Visit Diagnoses Diagnosis Type 2 diabetes mellitus with diabetic polyneuropathy, with long-term current use of insulin ([facility]) documented in this encounter Care Teams Experience Design Director Relationship Specialty Start Date End Date Francheska Tucker FNP [address] [place] [address] PCP - General Family Medicine 10/25/23 11/01/24 Sharmila Azar DO [address] [place] [address] PCP - General Family Medicine 11/02/24 06/17/25 Inactive/Transferred PCP - General 06/18/25 06/18/25 Lei Thacker Health Navigator 09/17/24 documented as of this encounter
--- OUTSIDE RECORDS SUMMARY | 2025-07-22 12:11 | XMS_ITS | Encounter Summary ---
Author Organization [employer] Address [address] [place] [address] 7t [place] [address] Care Team Providers Care Barber Shop Manager Name Role Phone Francheska Tucker MADELEINE Primary Care Provider [phone] Lei Thacker Unavailable Unavailable Sharmila Azar DO Primary Care Provider [phone] Inactive/Transferred Primary Care Provider Unava ilable Reason for Visit * Reason Comments Med Change Request Encounter Details Date Type Department Care Team (Late st Contact Info) Description 05/12/2024 Oneyda Stewart [facility] [address] [place] [address] Shilpa Miller CNP [address] [place] [address] Psychophysiological insomnia Social History Tobacco Use Types Packs/Day Years [...] Answer Date Recorded Patient Health Questionnaire-9 Score 03/24/2024 Patient Health Questionnaire-9 Score 03/24/2024 Last PHQ-9: Questionnaire Data Not on [...] encounter Miscellaneous Notes * Telephone Encounter - Damaris Wilson - 05/12/2024 2:39 PM EDT Working on PA * Telephone Encounter - Branden Mcclure CMA - 05/12/2024 10:37 AM EDT No formulary medication, pharmacy requesting alternative med. To for alternative or PA for non formulary med. documented in this encounter Plan of Treatment Not on file documented as of this encounter Visit Diagnoses Diagnosis Psychophysiological insomnia Persistent disorder of initiating or maintaining sleep documented in this encounter Additional Health Concerns Assessment Noted Time PHQ-9 Depression Total Score: 024 7:38 AM EDT documented as of this encounter Care Teams Barber Shop Manager Relationship Specialty Start Date End Date Francheska Tucker FNP [address] [place] [address] PCP - General Family Medicine 10/25/23 11/01/24 Sharmila Azar DO [address] [place] [address] PCP - General Family Medicine 11/02/24 06/17/25 Inactive/Transferred PCP - General 06/18/25 06/18/25 Lei Thacker Health Navigator 09/17/24 documented as of this encounter
--- OUTSIDE RECORDS SUMMARY | 2025-07-22 12:11 | XMS_ITS | Encounter Summary ---
Author Organization [employer] Address [address] [facility] 7t [place] [address] Care Team Providers Care Identification And Records Commander Name Role Phone Lei Thacker Unavailable Unavailable Sharmila Azar DO Primary Care Provider [phone] Inactive/Transferred Primary Care Provider Unava ilable Reason for Visit * Reason Onset Date Comments Med Refill 02/09/2025 Encounter Details Date Type Department Care Team (Late st Contact Info) Description 02/09/2025 Refill Pat [facility] [address] [place] [address] Francheska Tucker FNP [address] [place] [address] Type 2 diabetes mellitus with diabetic polyneuropathy (CMS/HCC) Social History Tobacco Use Types Packs/Day Years [...] Diagnosis Type 2 diabetes mellitus with diabetic polyneuropathy (CMS/HCC) documented in this encounter Additional Health Concerns Assessment Noted Time PHQ-9 Depression Total Score: 10 024 7:39 AM EST documented as of this encounter Care Teams Identification And Records Commander Relationship Specialty Start Date End Date Sharmila Azar DO [address] [place] [address] PCP - General Family Medicine 11/02/24 06/17/25 Inactive/Transferred PCP - General 06/18/25 06/18/25 Lei Thacker Health Navigator 09/17/24 documented as of this encounter
--- OUTSIDE RECORDS SUMMARY | 2025-07-22 12:11 | XMS_ITS | Encounter Summary ---
Author Organization [employer] Address [address] [place] [address] 7t [place] [address] Care Team Providers Care Sales Department Manager Name Role Phone Lei Thacker Unavailable Unavailable Sharmila Azar DO Primary Care Provider [phone] Inactive/Transferred Primary Care Provider Unava ilable Reason for Visit * Reason Comments Med Change Request Encounter Details Date Type Department Care Team (Late st Contact Info) Description 12/25/2024 Oneyda Stewart [facility] [address] [place] [address] Sharmila Azar DO [address] [place] [address] Mild intermittent asthma without complication Social History Tobacco Use Types Packs/Day Years [...] Telephone Encounter - Krysta Mcclure LPN - 12/29/2024 11:48 AM EST duplicate documented in this encounter Plan of Treatment Not on file documented as of this encounter Visit Diagnoses Diagnosis Mild intermittent asthma without complication documented in this encounter Additional Health Concerns Assessment Noted Time PHQ-9 Depression Total Score: 10 024 7:39 AM EST documented as of this encounter Care Teams Sales Department Manager Relationship Specialty Start Date End Date Sharmila Azar DO [address] [place] [address] PCP - General Family Medicine 11/02/24 06/17/25 Inactive/Transferred PCP - General 06/18/25 06/18/25 Lei Thacker Health Navigator 09/17/24 documented as of this encounter
--- OUTSIDE RECORDS SUMMARY | 2025-07-22 12:11 | XMS_ITS | Encounter Summary ---
Author Organization [employer] Address [address] [place] [address] 7t [place] [address] Care Team Providers Care Terra Cotta Roofer Helper Name Role Phone Lei Thacker Unavailable Unavailable Sharmila Azar DO Primary Care Provider [phone] Inactive/Transferred Primary Care Provider Unava ilable Reason for Visit * Reason Onset Date Comments Med Refill 01/31/2025 Encounter Details Date Type Department Care Team (Late st Contact Info) Description 01/31/2025 Refill Pat [facility] [address] [place] [address] Francheska Tucker FNP [address] [place] [address] Essential (primary) hypertension Social History Tobacco Use Types Packs/Day Years [...] as of this encounter Visit Diagnoses Diagnosis Essential (primary) hypertension Unspecified essential hypertension documented in this encounter Additional Health Concerns Assessment Noted Time PHQ-9 Depression Total Score: 10 10/21/ 024 7:39 AM EST documented as of this encounter Care Teams Terra Cotta Roofer Helper Relationship Specialty Start Date End Date Sharmila Azar DO [address] [place] [address] PCP - General Family Medicine 11/02/24 06/17/25 Inactive/Transferred PCP - General 06/18/25 06/18/25 Lei Thacker Health Navigator 09/17/24 documented as of this encounter
--- OUTSIDE RECORDS SUMMARY | 2025-07-22 12:11 | XMS_ITS | Encounter Summary ---
Author Organization [employer] Address [address] [place] [address] 7t [place] [address] Care Team Providers Care Floor Surfacer Name Role Phone Francheska Tucker MADELEINE Primary Care Provider [phone] Lei Thacker Unavailable Unavailable Sharmila Azar DO Primary Care Provider [phone] Inactive/Transferred Primary Care Provider Unava ilable Reason for Visit * Reason Comments Med Change Request Encounter Details Date Type Department Care Team (Late st Contact Info) Description 05/12/[address] [facility] [address] [place] [address] Shilpa Miller CNP [address] [place] [address] Psychophysiological insomnia Social History Tobacco Use Types [...] encounter Miscellaneous Notes * Telephone Encounter - Branden Mcclure, CLINICAL DOCUMENTATION SPEC - 05/12/2024 9:56 AM EDT Pt tried and failed Ambien in the past, please initiate a PA through [facility] documented in this encounter Plan of Treatment Not on file documented as of this encounter Visit Diagnoses Diagnosis Psychophysiological insomnia Persistent disorder of initiating or maintaining sleep documented in this encounter Additional Health Concerns Assessment Noted Time PHQ-9 Depression Total Score: 20 024 7:38 AM EDT documented as of this encounter Care Teams Floor Surfacer Relationship Specialty Start Date End Date Francheska Tucker FNP [address] [place] [address] PCP - General Family Medicine 10/25/23 11/01/24 Sharmila Azar DO 73 [place] [address] PCP - General Family Medicine 11/02/24 06/17/25 Inactive/Transferred PCP - General 06/18/25 06/18/25 Lei Thacker Health Navigator 09/17/24 documented as of this encounter
--- OUTSIDE RECORDS SUMMARY | 2025-07-22 12:11 | XMS_ITS | Encounter Summary ---
Author Organization [employer] Address [address] [place] [address] 7 [place] [address] Care Team Providers Care Inside Contractor Sales Name Role Phone Lei Thacker Unavailable Unavailable Sharmila Azar DO Primary Care Provider [phone] Inactive/Transferred Primary Care Provider Unava ilable Reason for Visit * Reason Onset Date Comments Med Refill 02/18/2025 Encounter Details Date Type Department Care Team (Late st Contact Info) Description 02/18/[address] [facility] [address] [place] [address] Sharmila Azar DO [address] [place] [address] Anxiety; PTSD (post-traumatic stress disorder) Social History [...] * Telephone Encounter - Kameron Lombardi - 02/18/2025 2:55 PM EDT Rx was sent in another TE documented in this encounter Plan of Treatment Not on file documented as of this encounter Visit Diagnoses Diagnosis Anxiety Anxiety state, unspecified PTSD (post-traumatic stress disorder) Posttraumatic stress disorder documented in this encounter Additional Health Concerns Assessment Noted Time PHQ-9 Depression Total Score: 10 024 7:39 AM EST documented as of this encounter Care Teams Inside Contractor Sales Relationship Specialty Start Date End Date Sharmila Azar DO [address] [place] [address] PCP - General Family Medicine 11/02/24 06/17/25 Inactive/Transferred PCP - General 06/18/25 06/18/25 Lei Thacker Health Navigator 09/17/24 documented as of this encounter
--- OUTSIDE RECORDS SUMMARY | 2025-07-22 12:12 | XMS_ITS | Patient Health Record ---
Author Organization [employer] [facility] Address [address] [facility] [address] [place] [address] Care Team Providers Care Senior Engineering Manager Name Role Phone Laisha Castañeda Unavailable [phone] Reason For Referral No Information Medications Medication SIG (Take, Route, Frequency, Duration) Notes Start Date End Date Status Viibryd 40MG ORAL; Duration: - [facility] 04/28/2014 Active Vitamin D3 1000 IU ORAL daily; Duration: - [facility] 2013 Active Aspirin EC 81MG 1 ORAL daily; Durati on: - [facility] 04/28/2014 Active Nebulizer ORAL; Duration: - [facility] 04/28/2014 Active oxyCODONE HCl 5MG ORAL; Duration: - [facility] 04/28/2014 Active Pravastatin Sodium 20MG 1 ORAL daily; Du ration: - [facility] 04/28/2014 Active Singulair 10MG ORAL; Duration: - [facility] 04/28/2014 Active Combivent 103-18 2 INHALE four times daily; Duration: - [facility] 04/28/2014 Active KlonoPIN 0.5MG ORAL four times shannon y; Duration: [facility] 04/28/2014 Active Levothyroxine Sodium 125MCG 1 ORAL daily ; Duration: - [facility] 04/28/2014 Active metFORMIN HCl ER 500MG ORAL; Duration: - [facility] 04/28/20 14 Active Problems Problem Type SNOMED Code ICD Code Onset Dates Problem Status W/U Status Risk Notes Problem Hypothyroidism (14803937) Unspecified hypothyroidism (244.9) Active confirmed Problem Type II diabetes mellitus without complication (591130126) Diabetes mellitus without mention of complication, type II or unspecified type, not stated as uncontrolled (250.00) Active confirmed Problem Pure hypercholesterolemia (855672839) Pure hypercholesterolemia (272.0) Active confirmed Problem Morbid obesity (373933052) Morbid obesity (278.01) Active confirmed Problem Schizoaffective disorder (17014394) Schizoaffective disorder, unspecified (295.70) Active confirmed Problem Panic disorder with agoraphobia (20935696) Agoraphobia with panic disorder (300.21) Active confirmed Problem Obsessive-compulsive disorder (654051756) Obsessive-compulsive disorders (300.3) Active confirmed Problem Posttraumatic stress disorder (12648537) Posttraumatic stress disorder (309.81) Active confirmed Problem Attention deficit hyperactivity disorder (334277666) 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) Active confirmed Problem Migraine (disorder) (05801171) Migraine, unspecified without mention of intractable migraine without mention of status migrainosus (346.90) Active confirmed Problem Asthma (disorder) (826951667) Asthma, unspecified, unspecified status (493.90) Active confirmed Problem Sleep apnea (52344991) Unspecified sleep apnea (780.57) Active confirmed Problem Hypertension (36253014) Hypertension (401.9) Active confirmed Plan Of Treatment No Information Insurance Providers Payer Name Payer Address Payer Phone Subscriber Number Group Number Insured Name Patient Relationship to Insured Coverage Start Date Coverage End Date MEDICARE [address] [place] [id number] [phone] [id number] SEBASTIÁN GARCIA Self - patient is the insured Medical (General) History Medical History History ICD Code Agoraphobia with panic disorder Asthma, unspecified, unspecified status Morbid obesity Hypertension Unspecified hypothyroidism Pure hypercholesterolemia Diabetes mellitus without me ntion of complication, type II or unspecified type, not stated as uncontrolled Unspecified sleep apnea Schizoaffective disorder, unspecified Posttraumatic stress disorder Migraine, unspecified withou t mention of intractable migraine without mention of status migrainosus Obsessive-compulsive disorders Attention deficit disorder of childhood with hyperactivity Surgical History Surgery Date(Month/Year) Tonsillectomy 1985 C/S 1992 Knee Surgery 2008
--- OUTSIDE RECORDS SUMMARY | 2025-07-22 12:12 | XMS_ITS | Encounter Summary ---
Author Organization [employer] Address [address] [place] [address] 7t [place] [address] Care Team Providers Care Director Of Staff Development Name Role Phone Lei Thacker Unavailable Unavailable Encounter Details Date Type Department Care Team (Latest Contact Info) Description 07/21/2025 Results Follow-Up [facility] [address] [place] [address] Sharmila Azar DO [address] [place] [address] CBC auto differential, Comprehensive Metabolic Panel [[id number]] Social History Tobacco Use Types Packs/Day Years Used Date Smoking Tobacco: Never Passive Smoke Exposure: Never Smokeless Tobacco: Never Alcohol Use Standard Drinks/Week Comments Never 0 (1 standard drink = 0.6 oz pur e alcohol) Alcohol Answer Date Recorded How often do you have a drink containing alcohol ? 0 06/22/2025 Average Number of Drinks Not on file 025 How often do you have six or more drinks on one occasion? 0 06/22/2025 Depression Answer Date Recorded Patient Health Questionnaire-9 Score 6 06/22/2025 Patient Health Questionnaire-9 Score 6 06/22/2025 Last PHQ-9: Questionnaire Data Not on file 0 06/22/2025 Housing Stability Answer Date Recorded What is [...] Date Recorded Patient Health Questionnaire-2 Score 0 06/22/2025 Internet Access Answer Date Recorded Internet Access [...] as of this encounter Plan of Treatment Scheduled Orders Name Type Priority Associated Diagnoses Orde r Schedule B Type Natriuretic Peptide (BNP) 230405 Lab Routine Low serum albumin Lymphedema Mild intermittent asthma without complication Unspecified abnormalities of breathing Expected: 07/21/2025, Expires: 07/21/2026 Urinalysis Complete Lab Routine Low serum albumin Expected: 07/21/2025, Expires: 07/21/2026 documented as of this encounter Visit Diagnoses Diagnosis Low serum albumin- Primary Lymphedema Other noninfectious lymphedema Mild intermittent asthma without complication Unspecified abnormalities of breathing documented in this encounter Additional Health Concerns Assessment Noted Time PHQ-9 Depression Total Score: 6 06/22/20 25 2:22 PM EDT documented as of this encounter Care Teams Director Of Staff Development Relationship Specialty Start Date End Date Lei Thacker Health Navigator 09/17/24 documented as of this encounter
--- OUTSIDE RECORDS SUMMARY | 2025-07-22 12:12 | XMS_ITS | Encounter Summary ---
Author Organization [employer] Address [address] [place] [address] 7 [place] [address] Care Team Providers Care Fiber Machine Tender Name Role Phone Shilpa Miller CNP Primary Care Provider [phone] Francheska Tucker Primary Care Provider [phone] Lei Thacker Unavailable Unavailable Sharmila Azar DO Primary Care Provider [phone] Inactive/Transferred Primary Care Provider Unava ilable Encounter Details Date Type Department Care Team (Late st Contact Info) Description 11/30/2022 Abstract [place] [facility] [address] [place] [address] Shilpa Miller CNP [address] [place] [address] Social History Tobacco Use Types Packs/Day Years Used Date Smoking Tobacco: Never Smokeless Tobacco: Never Alcohol Use Standard Drinks/Week Comments Never 0 (1 standard drink = 0.6 oz pur e alcohol) Depression Answer Date Recorded Patient Health Questionnaire-2 Score 0 12/01/2022 Comments Unknown Sex and Gender Information Value Date Recorded [...] suspected to have Coronavirus/COVID-19? No / Unsure 12/01/2022 1:34 PM EST documented as of this encounter Functional Status * Over the past 2 weeks, how often have you been bothered by any of the following problems? Question Answer Date of Assessment Author Little interest or pleasure in doing things Not at all 12/01/2022 2:16 PM Alison Sagastume RMA Feeling down, depressed, or hopeless Not at all 12/01/2022 2:16 PM Alison Sagastume RMA Patient Health Questionnaire -2 Score 0 12/01/2022 2:16 PM Alison Sagastume RMA documented as of this encounter Plan of Treatment Not on file documented as of this encounter Visit Diagnoses Not on filedocumented in this encounter Care Teams Fiber Machine Tender Relationship Specialty Start Date End Date Shilpa Miller CNP [address] [place] [address] PCP - General Family Medicine 10/16/22 10/24/23 Francheska Tucker FNP [address] [place] [address] PCP - General Family Medicine 10/25/23 11/01/24 Sharmila Azar DO [address] [place] [address] PCP - General Family Medicine 11/02/24 06/17/25 Inactive/Transferred PCP - General 06/18/25 06/18/25 Lei Thacker Health Navigator 09/17/24 documented as of this encounter
--- OUTSIDE RECORDS SUMMARY | 2025-07-22 12:12 | XMS_ITS | Encounter Summary ---
Author Organization [employer] Address [address] [place] [address] [address]t [place] [address] Care Team Providers Care Manager Molecular Name Role Phone Lei Thacker Unavailable Unavailable Reason for Visit * Reason Comments Med Refill Encounter Details Date Type Department Care Team (Late st Contact Info) Description 07/18/2025 Refill Pat [facility] [address] [place] [address] Francheska Tucker, OUTDOOR EDUCATION TEACHER [address] [place] [address] Social History Tobacco Use Types Packs/Day Years [...] documented as of this encounter Care Teams Manager Molecular Relationship Specialty Start Date End Date Lei Thacker Health Navigator 09/17/24 documented as of this encounter
--- OUTSIDE RECORDS SUMMARY | 2025-07-22 12:12 | XMS_ITS | Encounter Summary ---
Author Organization [employer] Address [address] [place] [address] 7 [place] [address] Care Team Providers Care Oil Well Service Operator Name Role Phone Lei Thacker Unavailable Unavailable Sharmila Azar DO Primary Care Provider [phone] Inactive/Transferred Primary Care Provider Unava ilable Reason for Visit * Reason Onset Date Comments Med Refill 12/11/2024 Encounter Details Date Type Department Care Team (Late st Contact Info) Description 12/11/2024 Refill [place] [facility] [address] [place] [address] Sharmila Azar DO [address] [place] [address] Anxiety; PTSD (post-traumatic stress disorder) Social History [...] Miscellaneous Notes * Telephone Encounter - PJ Blackwood - 12/11/2024 11:24 AM EST Written Script:11/28/24 MassPat Last Fill Date:11/28/24 MassPat Sold Date:11/30/24 Last OV:12/01/24 Next OV:01/01/25 CSA Date:12/01/24 Last Utox:12/01/24 DNF Date: 12/14/24 documented in this encounter Plan of Treatment Not on file documented as of this encounter Visit Diagnoses Diagnosis Anxiety Anxiety state, unspecified PTSD (post-traumatic stress disorder) Posttraumatic stress disorder documented in this encounter Additional Health Concerns Assessment Noted Time PHQ-9 Depression Total Score: 10 024 7:39 AM EST documented as of this encounter Care Teams Oil Well Service Operator Relationship Specialty Start Date End Date Sharmila Azar DO [address] [place] [address] PCP - General Family Medicine 11/02/24 06/17/25 Inactive/Transferred PCP - General 06/18/25 06/18/25 Lei Thacker Health Navigator 09/17/24 documented as of this encounter
--- OUTSIDE RECORDS SUMMARY | 2025-07-22 12:12 | XMS_ITS | Clinical Summary ---
Author Organization [address] [facility] Address [address] [place] [address] Phone Care Team Providers Care Leadership Recruiter Name Role Phone DoeSharmila Sheldon Meade DO Primary Care Provider [phone] Social History Tobacco Use Types Packs/Day Years Used Date Smoking Tobacco: Never Assessed Comments Unknown Sex and Gender Information Value Date Recorded Sex Assigned at Not on file Legal Sex Female 9:03 PM EST Gender Identity Not on file Sexual Orientation Not on file Plan of Treatment Upcoming Encounters Date Type Department Care Team (Late st Contact Info) Description 08/03/2025 10:45 AM EDT Office Visit Orthopedic Surgery - [place] [address] [phone] Ta Wagner, KRUNAL [address] [address] Health Maintenance Due Date Last Done Comments Breast Cancer Screening 1968 Diabetes: Annual GFR (Glomerular Filtration Rate) 1968 Diabetes: Annual Foot Exam 1978 Diabetes: Annual Retina Eye Exam 1978 Zoster Vaccines (1 of 2) 2018 Colorectal Cancer Screening: Colonoscopy 11/30/2023 Hepatitis C Screening 11/30/2023 Medicare Annual Wellness Visit 11/30/2023 Social Influencers of Health Screening 11/30/2023 Depression Screening 11/05/2024 Influenza Vaccine (#1) 2025 , 08/21/2023, 11/01/2022, Additional history exists Hypertension/CHF/CAD Annual BMP Blood Test 07/08/2025 Diabetes: Blood Sugar Control Test (HGBA1C) 12/23/2025 06/22/2025 Diabetes: Annual Urine Albumin-Creatinine Ratio (uACR) 01/01/2026 01/01/2025 Cervical Cancer Screening: Pap Smear 07/17/2026 07/17/2023 Cholesterol Screening (Lipid Panel) 12/11/2028 12/11/2023 DTaP,Tdap,and Td Vaccines (6 - Td or Tdap) 07/18/2034 07/18/2024, 12/24/2014, 10/23/2014, Additional history exists Hepatitis B Vaccines Completed 04/14/2011, 11/15/2010, 10/14/2010 HIV Screening Completed 12/14/2020 Pneumococcal Vaccine: 50+ Years Completed 06/23/2024, 10/08/2015, 02/10/2011, Additional history exists COVID-19 Vaccine Completed 10/01/2024, , 10/20/2021, Additional history exists HIB Vaccines Aged Out No longer eligi ble based on patient's age to complete this topic HPV Vaccines Aged Out No longer eligi ble based on patient's age to complete this topic Hepatitis A Vaccines Aged Out No long er eligible based on patient's age to complete this topic IPV Vaccines Aged Out No longer eligi ble based on patient's age to complete this topic MMR Vaccines Aged Out No longer eligi ble based on patient's age to complete this topic Meningococcal ACWY Vaccine Aged Out N o longer eligible based on patient's age to complete this topic Meningococcal B Vaccine Aged Out No l onger eligible based on patient's age to complete this topic RSV Immunization Patients Under 20 months Aged Out No longer eligible based on patient's age to complete this topic Varicella Vaccines Aged Out No longer eligible based on patient's age to complete this topic Insurance [address] [place] [address] MEDICAID - [place] MEDICARE Care Teams Leadership Recruiter Relationship Specialty Start Date End Date Sharmila Azar DO [address] [place] [address] PCP - General Family Medicine 05/28/25
--- OUTSIDE RECORDS SUMMARY | 2025-07-22 12:12 | XMS_ITS | Encounter Summary ---
Author Organization [employer] Address [address] [place] [address] 7t [place] [address] Care Team Providers Care Animal Caretaker Name Role Phone Francheska Tucker MADELEINE Primary Care Provider [phone] Lei Thacker Unavailable Unavailable Sharmila Azar DO Primary Care Provider [phone] Inactive/Transferred Primary Care Provider Unava ilable Reason for Visit * Reason Comments Med Refill Encounter Details Date Type Department Care Team (Late st Contact Info) Description 03/21/2024 Refill Pat [facility] [address] [place] [id number] Shilpa Miller, PROJECT MANAGER PROCESS DEVELOPMENT [address] [place] [address] Type 2 diabetes mellitus with diabetic polyneuropathy, with long-term current use of insulin ([facility]) Social History Tobacco Use Types Packs/Day [...] on file documented as of this encounter Functional Status * Over the past 2 weeks, how often have you been bothered by any of the following problems? Question Answer Date of Assessment Author Patient Health Questionnaire -2 Score 6 03/24/2024 7:38 AM Shilpa De Leon CNP * If you checked off any problems on this questionnaire so far, Question Answer Date of Assessment Author How difficult have these problems made it for you to do your work, take care of things at home, or get along with other people? Very difficult 03/24/2024 7:38 AM Sonja De Leon CNP * Over the last 2 weeks, how often have you been bothered by any of the following problems? Question Answer Date of Assessment Author Feeling nervous, anxious, or on edge 3 03/24/2024 7:40 AM Shilpa De Leon CNP Not being able to stop or co ntrol worrying 3 03/24/2024 7:40 AM Shilpa De Leon CNP Worrying too much about diff erent things 3 03/24/2024 7:40 AM Shilpa De Leon CNP Trouble relaxing 3 03/24/2024 7:40 AM Shilpa Neal CNP Being so restless that it is hard to sit still 3 03/24/2024 7:40 AM Shilpa De Leon CNP Becoming easily annoyed or irritable 3 03/24/2024 7:40 AM Shilpa De Leon CNP Feeling afraid as if somethi ng awful might happen 3 03/24/2024 7:40 AM Shilpa De Leon CNP MIRIAN-7 Total Score 21 03/24/2024 7:40 AM Shilpa De Leon CNP * Over the past 2 weeks, how often have you been bothered by any of the following problems? Question Answer Date of Assessment Author Little interest or pleasure in doing things Nearly every day 03/24/2024 7:38 AM Shilpa De Leon CNP Feeling down, depressed, or hopeless Nearly every day 03/24/2024 7:38 AM Shilpa De Leon CNP Trouble falling or staying asleep, or sleeping too much Nearly every day 03/24/2024 7:38 AM Shilpa De Leon CNP Feeling tired or having little energy Nearly every day 03/24/2024 7:38 AM Shilpa De Leon CNP Poor appetite or overeating Not at all 03/24/2024 7:38 AM Shilpa De Leon CNP Feeling bad about yourself - or that you are a failure or have let yourself or your family down Nearly every day 03/24/2024 7:38 AM Shilpa De Leon CNP Trouble concentrating on things, such as reading the newspaper or watching television Nearly every day 03/24/2024 7:38 AM hSilpa De eLon CNP Moving or speaking so slowly that other people could have noticed? Or the opposite - being so fidgety or restless that you have been moving around a lot more than usual. More than half the days 03/24/2024 7:38 AM Shilpa De Leon CNP Thoughts that you would be better off or hurting yourself in some way Not at all 03/24/2024 7:38 AM Shilpa De Leon CNP Patient Health Questionnaire-9 Score 20 03/24/2024 7:38 AM Shilpa De Leon CNP documented as of this encounter Plan of Treatment Not on file documented as of this encounter Visit Diagnoses Diagnosis Type 2 diabetes mellitus with diabetic polyneuropathy, with long-term current use of insulin ([facility]) documented in this encounter Additional Health Concerns Assessment Noted Time PHQ-9 Depression Total Score: 24 024 3:40 PM EDT documented as of this encounter Care Teams Animal Caretaker Relationship Specialty Start Date End Date Francheska Tucker FNP [address] [place] [address] PCP - General Family Medicine 10/25/23 11/01/24 Sharmila Azar DO [address] [place] [address] PCP - General Family Medicine 11/02/24 06/17/25 Inactive/Transferred PCP - General 06/18/25 06/18/25 Lei Thacker Health Navigator 09/17/24 documented as of this encounter
--- OUTSIDE RECORDS SUMMARY | 2025-07-22 12:12 | XMS_ITS | Encounter Summary ---
Author Organization [employer] Address [address] [place] [address] 7 [place] [address] Care Team Providers Care Maintenance Mechanic Telephone Name Role Phone Lei Thacker Unavailable Unavailable Reason for Visit * Reason Onset Date Comments [facility] 07/10/2025 Phone Number # [phone] Number # [phone] Encounter Details Date Type Department Care Team (Late st Contact Info) Description 07/10/2025 Telephone Pat [facility] [address] [place] [address] [id number] Pcp, Pat Unassigned [facility] (Phone Number # [phone]/ ) Social History Tobacco Use Types Packs/Day Years [...] t he electric, gas, oil or water [employer] threatened to shut off services in your [...] encounter Miscellaneous Notes * Telephone Encounter - Alison Flores, RMA - 07/21/2025 12:27 PM EDT I called out to [facility] and spoke to shruti Estrella and she talked to Marni in the department that handles the forms for debby and Delores stated, Marni is in the process of sending all paperwork overtjuan Kiran's health insurance for approval for the prior auth to get done to keep receiving her supplies every month. I asked again if this being expedited and she did state its in the notes that we asked for this to be and once its approved from the insurance they will be expediting it to qiana. Delores did mention to me it can take up to 24 hours for the health insurance to review the paperwork. * Telephone Encounter - PJ Blackwood - 07/20/2025 5:14 PM EDT Called back to [facility] to see the status of things. They stated to me they received the fax I sent over everything looked good everything was signed and filled out correctly. The woman did stateto me that this does have to go through her prior auth department of her insurance. She did say to call first thing in the morning and ask for Marni to make sure she received what she was looking for and she everett not need anything else from us or Qiana, She said from what she can see it does not look like they do but just to be on the safe side. I did ask if they can expedite this for Qiana she didput a note in for Marni to have this expedite for Qiana once this is all set with prior auth department with Qiana insurance. * Telephone Encounter - PJ Blackwood - 07/20/2025 4:36 PM EDT Spoke to [facility] to see if they received the newest fax I sent over as of now they did not receive anything yet. I am going to call back at 5 as the pharmacy department does not close till 6 pm their time, to see if this gets through tonight and uploaded to her chart at [facility] and Qiana's supplies can be shipped. * Telephone Encounter - PJ Blackwood - 07/20/2025 1:07 PM EDT I called out to [facility]. The first mobile sales consultant I spoke to was Da he was extremely rude to me on the phone when I was asking to please explain to me what more information they were looking from us. He transferred me without saying he was transferring me and I spoke to Maninder who was very nice and helpful and we went over everything as I had the paperwork right in front of me of the corrections from faxing to them three times already. She stated everything looked good. She wanted to confirmeverything was good as she transferred me to her machine records units supervisor named Mayi whom was very nice also and helpful and also stated everything looked good. I did my chart back to Qiana letting her know I did speak to them and who I spoke to. I am truly hoping this does not take any longer then after this. Idid apologize to Qiana about this for taking so long. * Telephone Encounter - PJ Blackwood - 07/17/2025 2:01 PM EDT Printed crossed out and initialed with the 11 refills for the year and initialed that and faxed back to [facility]. * Telephone Encounter - Susu Toney - 07/17/2025 12:20 PM EDT Nancy called regarding the patient and the dme script Please fill out section 4 and indicate the patient needs 11 refills for the year Please do not use white out just cross out what ever is incorrect and have provider initial and date then corrected updated area before faxing back * Telephone Encounter - PJ Blackwood - 07/16/2025 4:47 PM EDT Qiana called me earlier and stated she called out to [facility] to see what was going onwith her order for her depends. Mehdi from [facility] stated to her we never filled out section 7 and didn't put any refills on the script. I went and pulled out the DME order form I faxed over yesterday at 1:15 PM, everything was filled out in the section that we needed to fill out and had the monthly refills on it and I refaxed that form and stamped faxed again on the paperwork with the date and time of the fax again. * Telephone Encounter - PJ Blackwood - 07/15/2025 1:10 PM EDT Faxed everything all OV note from beginning of 2024 to present to [facility]. Sent My chart Message to Qiana also so we are both in the loop of things. * Telephone Encounter - PJ Balckwood - 07/15/2025 9:41 AM EDT I did update Qiana in a my chart message letting her know I just received her message regarding the forms being re faxed over to us, I did let her I did reach out to our medical records who separates our faxes if she can please look out for Hema Dougherty's fax forms from [facility]. Iwanted to make sure that Qiana was aware I am working with her on this, I did let Qiana know if I don'thear from medical records within the next half hour I was going to call back to [facility] and ask them to attn the forms to me (Alison). I did try to click on her screen shots to see if I could get the forms from her screen shot and unfortunately it did not work. * Telephone Encounter - PJ Blackwood - 07/10/2025 4:58 PM EDT Hema called me back I did confirm with her this is everything she had asked to be ordered. I did explain to her on the phone what K'ylegh from [facility] stated to me as I did not know if she read the my chart message I sent her earlier. She did explain to me that she spoke to mandyon Sunday07/07/25, I did let her know they have their own process of things they have to do first before they send it to her insurance and by Sunday or Sunday next week we the health center should be receiving the fax forms for to sign and fax back to them for her supplies. * Telephone Encounter - PJ Blackwood - 07/10/2025 4:53 PM EDT I placed call to Hema, she did not answer I did get her voicemail I did leave a detailed message asking her if the pull up rely maximum absorbency underwear Size XXL - qty of 240 a month, 2 boxesof the Xl gloves non sterile non latex gloves, and 2 Xl reusable chair pads a month was what she had asked for and a confirmation from Qiana. * Telephone Encounter - PJ Blackwood - 07/10/2025 2:56 PM EDT Called out to [facility] spoke to Ava from [employer], She stated to me they spoke to Hema on 07/09/2025 and told her they have a process they have to go through first for insurance as she did a change and Claudy told me there was a note in the system stating that this was said to hema it can take up to 48 to 72 hours for this process before it sent to the insurance com jess as they told her yesterday on 07/09/25 she called on 07/07/25 to change her supplies this is not going to get to the health insurance until next week like Sunday or Sunday as they have their own process they have to do first. Then they will be faxing forms to us to sign. There is nothing we can do at this time to expedite this as this is their process of doing things when a client changes theirsupplies. Claudy stated she was going to put another note in the system that she spoke to us the [facility] krishan Bergeron calls back there and its documented that we spoke on the phone together. documented in this encounter Plan of Treatment Not on file documented as of this encounter Visit Diagnoses Not on filedocumented in this encounter Additional Health Concerns Assessment Noted Time PHQ-9 Depression Total Score: 6 06/22/20 25 2:22 PM EDT documented as of this encounter Care Teams Maintenance Mechanic Telephone Relationship Specialty Start Date End Date Lei Thacker Health Navigator 09/17/24 documented as of this encounter
--- OUTSIDE RECORDS SUMMARY | 2025-07-22 12:12 | XMS_ITS | Encounter Summary ---
Author Organization [employer] Address [address] [place] [address] 7 [place] [address] Care Team Providers Care Plywood Scarfer Tender Name Role Phone Lei Thacker Unavailable Unavailable Sharmila Azar DO Primary Care Provider Inactive/Transferred Primary Care Provider Unava ilable Reason for Visit * Reason Onset Date Comments Med Refill 11/27/2024 Encounter Details Date Type Department Care Team (Late st Contact Info) Description 11/27/2024 Refill [facility] [address] [place] [address] Sharmila Azar DO [address] [place] [address] Anxiety; PTSD (post-traumatic stress disorder) Social History [...] encounter Miscellaneous Notes * Telephone Encounter - Kameronrenu Lombardi - 11/28/2024 10:33 AM EST RX was sent in another TE documented in this encounter Plan of Treatment Not on file documented as of this encounter Visit Diagnoses Diagnosis Anxiety Anxiety state, unspecified PTSD (post-traumatic stress disorder) Posttraumatic stress disorder documented in this encounter Additional Health Concerns Assessment Noted Time PHQ-9 Depression Total Score: 10 024 7:39 AM EST documented as of this encounter Care Teams Plywood Scarfer Tender Relationship Specialty Start Date End Date Sharmila Azar DO [address] [place] [id number] PCP - General Family Medicine 11/02/24 06/17/25 Inactive/Transferred PCP - General 06/18/25 06/18/25 Lei Thacker Health Navigator 09/17/24 documented as of this encounter
--- OUTSIDE RECORDS SUMMARY | 2025-07-22 12:12 | XMS_ITS | Clinical Summary ---
Author Organization [employer] Address [address] [place] [address] [address] [place] [address] Care Team Providers Care Consumer Credit Counselor Name Role Phone Lei Thacker Unavailable Unavailable Allergies Active Allergy Reactions Criticality Noted Date Comments Lamar Oil Hives,Itching,Rash,S hortness of breath,Swelling,Whee zing High 11/05/1980 Other Reaction(s): Anaphylaxis Amoxicillin 10/11/2022 Other reaction(s): Unknown Aspirin 10/11/2022 Other reaction(s): sensitivity Azithromycin Rash Low 10/11/2022 Black Iroquois Flavoring Agent (Non-Screening) Hives,Itching,Shortn ess of breath,Swelling,Whee zing High 01/01/2025 Buspirone Anxiety,Muscle Pain,Rash,Shortness of breath,Swelling,Whee zing High 06/22/2025 Clonidine Low 05/12/2023 Low blood pressure, nausea, vomiting Desvenlafaxine Swelling 10/11/2022 Whole body swelling Floriva Rash Low 10/11/2022 Furosemide Rash,Wheezing Low 10/11/2022 Iodine Rash Low 10/11/2022 Latex Rash Low 10/11/2022 Liraglutide Diarrhea,Hives,Nause a Only,Rash Low 10/11/2022 Other reaction(s): Unknown Lisinopril 10/11/2022 Other reaction(s): edema Pregabalin Er Itching,Swelling Medium 10/08/2024 Pregabalin Itching,Swelling Medium 10/08/2024 Metformin Hcl 10/11/2022 Other reaction(s): Unknown Montelukast Rash Low 10/11/2022 Nsaids 10/11/2022 Other reaction(s): shortness of breath Omalizumab Anaphylaxis High 10/11/2022 Penicillin G 10/11/2022 Other reaction(s): Unknown Penicillins 10/26/2022 Other reaction(s): hives,vomiting Pravastatin Rash Low 10/11/2022 Semaglutide 10/11/2022 Other reaction(s): N and V Serotonin Reuptake Inhibitors (Ssris) 06/22/2025 Shellfish Allergy 10/11/2022 Other reaction(s): shortness of breath Spironolactone Rash Low 10/11/2022 Sulfa Antibiotics 10/11/2022 Other reaction(s): shortness of breath Sulfamethoxazole-Trimet hoprim Anaphylaxis High 10/11/2022 Sumatriptan 10/11/2022 Other reaction(s): elevated blood pressure Tree Extract Hives,Itching,Shortn ess of breath,Swelling,Whee zing High 01/01/2025 Pecan Nut (Diagnostic) 10/11/2022 Other reaction(s): shortness of breath Acetaminophen Hives 10/18/2022 Other reaction(s): facial swelling Vortioxetine Anxiety,Muscle Pain,Swelling Low 06/22/2025 Ziprasidone Hcl 09/07/2020 Other reaction(s): Unknown Medications * This document contains information received from the source organization and may not represent a complete record from that organization. Respiratory Therapy Supplies (CareTouch CPAP & BIPAP Hose) misc See Instructions, # 1 each, Refills 11, Tot. Refills 11, Maintenance, PAP supplies Refill mask and supplies A4604 Heated Tubing/Climate line or A7037 Tubing A7038 or A7039 Filters A7036 Chin strap A7046 Humidifier Chamber A7035 Headgear A7027,... 11/25/19 Active Respiratory Therapy Supplies (Nebulizer/Tubing/ Mouthpiece) kit nebulizer tubing, See Instructions, # 1 box, Refills 0, Tot. Refills 0, Maintenance, nebulizer tubing, 10/02/14 13:46:53, dx asthma, Compound 10/02/20 Active albuterol (2.5 MG/3ML) 0.083% nebulizer solution Take by nebulization every 6 (six) hours if needed for wheezing. Active Incontinence Supply Disposable (PadSORBer Bed Morales Liners) miscIndications:Se angélica obesity ([facility]) 1 1e12 Vector Genomes/m2 4 times daily. 65 each 05/29/20 24 Active levothyroxine (Synthroid, Levoxyl) 200 MCG tabletIndications: Acquired hypothyroidism Take 1 tablet (200 mcg) by mouth Once per day. 90 tablet 3 11/09/19 25 026 Active levothyroxine (Synthroid, Levoxyl) 25 MCG tabletIndications: Acquired hypothyroidism Take 1.5 tablets (37.5 mcg) by mouth before breakfast. 135 tablet 3 11/09/19 25 026 Active amLODIPine (Norvasc) 5 MG tabletIndications: Primary hypertension TAKE 1 TABLET DAILY 90 tablet 3 11/28/19 25 Active glucose blood (FreeStyle Precision Qasim Test) test stripIndications:T ype 2 diabetes mellitus with diabetic polyneuropathy, with long-term current use of insulin ([facility]) Use as directed to test blood sugars 3 times a day 100 strip 12 12/09/19 25 Active levalbuterol (Xopenex) 45 MCG/ACT inhalerIndications :Mild intermittent asthma without complication INHALE 2 PUFFS EVERY 4 HOURS IF NEEDED FOR WHEEZING. 15 g 3 12/25/19 25 Active nystatin (Mycostatin) 883754 UNIT/GM powderIndications: Soo infection of flexural skin Apply topically 2 times daily. 60 g 1 01/01/20 25 026 Active losartan (Cozaar) 100 MG tabletIndications: Essential (primary) hypertension TAKE 1 TABLET (100 MG) BY MOUTH ONCE PER DAY. 90 tablet 3 02/03/20 25 Active Basaglar KwikPen 100 UNIT/ML penIndications:Typ e 2 diabetes mellitus with diabetic polyneuropathy, with long-term current use of insulin ([facility]) Inject 82 Units under the skin at bedtime. 24 mL 11 02/10/20 25 Active atorvastatin (Lipitor) 20 MG tabletIndications: Hypercholesterolem ia Take 1 tablet (20 mg) by mouth in the morning. 90 tablet 3 02/24/20 25 Active clonazePAM (KlonoPIN) 1 MG tabletIndications: Anxiety,PTSD (post-traumatic stress disorder) Take 1 tablet (1 mg) by mouth Use as directed for 14 days. Take 1 mg in the morning. Take two 1 mg tabs nightly. For a total of 3 mg daily. 42 tablet 03/04/20 25 Active NON FORMULARY Diabetic shoes and inserts, See Instructions, # 1 each, Refills 0, Tot. Refills 0, Maintenance, Diabetic shoes and inserts DM II E11,9, 10/12/16 4:25:35 PM EST, Compound 10/12/20 16 Active NON FORMULARY PAP Supplies, See Instructions, # 1 each, Refills 11, Tot. Refills 11, Maintenance, PAP supplies Refill mask and supplies A4604 Heated Tubing/Climate line or A7037 Tubing A7038 or A7039 Filters A7036 Chin strap A7046 Humidifier Chamber A7035 Headgear A7027, A7030, A7031, A7032, A7033, A7034 Nasal, Full or Pillow Mask and parts E0562 Heated Humidifier Mask Airfit F30I Dx CORRINA G47.33 Length of need 99 months, 03/22/20 11:17:00 AM EDT, Supply 03/22/20 20 Active docusate sodium (Colace) 100 MG capsuleIndications :Other constipation TAKE 1 CAPSULE BY MOUTH TWICE A DAY 60 capsule 1 03/09/20 25 Active Lancets (OneTouch Delica Plus Jeueyc97I) miscIndications:Ty pe 2 diabetes mellitus with diabetic polyneuropathy, with long-term current use of insulin ([facility]) CHECK GLUCOSE 3 TIMES A DAY 100 each 11 04/08/20 25 Active Alcohol Swabs (Alcohol Prep) 70 % pads TEST DAILY BEFORE ALL MEALS/SNACKS AND ONCE BEFORE BEDTIME. 100 each 04/24/20 25 Active EPINEPHrine (Epipen) 0.3 MG/0.3ML injection syringeIndications :Allergy, sequela Inject 0.3 mL (0.3 mg) as directed 1 (one) time for 1 dose. Inject into upper leg. Call 911 after use. 2 each 1 05/04/20 25 Active insulin pen needle (Embecta Pen Needle Fidelia 2 Gen) 32G x 4 mm miscIndications:Ty pe 2 diabetes mellitus with diabetic polyneuropathy (CMS/HCC) INJECT 1 EACH UNDER THE SKIN 4 TIMES DAILY. 100 each 3 05/18/20 25 Active insulin aspart FlexPen (NovoLOG) 100 UNIT/ML penIndications:Typ e 2 diabetes mellitus with diabetic polyneuropathy, with long-term current use of insulin (CMS/[facility]) Inject 8-10 Units under the skin before breakfast, before lunch, and before evening meal. 30 mL 3 05/29/20 25 Active cholecalciferol (Vitamin D3) 25 MCG (1000 UT) tablet TAKE 1 TABLET (25 MCG) BY MOUTH IN THE MORNING 90 tablet 3 07/20/20 25 Active FreeStyle lancetsIndications :Type 2 diabetes mellitus with diabetic polyneuropathy, with long-term current use of insulin (CMS/HCC) 1 each by Other route 3 times daily. 300 each 04/16/20 25 025 Active Problems Problem Noted Date Diagnosed Date Diabetic polyneuropathy asso ciated with type 2 diabetes mellitus 10/01/2024 Overview (10/01/2024): Bilateral foot neuropathy, ongoing for years and worsening. Will check B12 level. Was on Gabapentin for mood stabilization in the past - had vivid nightmares. Discussed options - will start Pregabalin. Reviewed medication, administration, and potential side effects. Will start low dose, pt will contact this provider via portal to update how medication is working. Unsteady gait 10/01/2024 Overview (10/01/2024): Reports unsteady on feet, denies any recent falls. Requesting walker. Discussed options - will refer to PT for stability and balance, and for eval of need for walker. Animal bite of calf 08/07/2024 Overview (08/07/2024): Patient with cat bite to right calf on 07/18/24. Treated with IV abx in hospital. Today wound is scabbed, healing well. Provided education on signs and symptoms of infection. Other constipation 06/02/2024 Overview (06/23/2024): Last colonoscopy 2021 - no issues at that time. Small stools, about every other day, without any blood/abdominal pain. Discussed options - is already drinking about 6x17 oz bottles of water daily. Does not have money to buy prune juice. Tried Dulcolax, 2-3 tabs, which caused watery diarrhea. Has been on Colace in the past with good effect - will restart. Reviewed medication, administration, and potential side effects. Advised to take Dulcolax, 1 tab PRN. Reviewed when to call clinic, when to go to ER. Constipation x 2 months - started at time of change of thyroid meds. Labs done today. Assessment & Plan (07/02/2024 10:53 AM EDT): Continues to have issues with constipation. Small stools, about every other day, without any blood/abdominal pain. Continue episodes of diarrhea with decrease dose of dulcolax prn. Daily docusate use. Drinking fluids staying hydrated. Discussed stop dulcolax, trial daily metamucil. Continue to drink plenty of fluids. Add food with fiber in diet, less processed foods and carbohydrates. Discussed frozen vegetables and fruit often cost effective alternative to fresh and contain same amount of nutrition/fiber. Return precautions reviewed, seek medical care in person for any severe or worsening symptoms ie- abd pain/abd distention/vomiting/etc. All questions addressed. Encounter for screening mamm ogram for malignant neoplasm of breast 04/22/2024 Blisters of multiple sites 02/26/2024 Assessment & Plan (02/26/2024 3:40 PM EDT): Pt states she has been wearing new shoes and has gotten 2 blisters on the back of both heels. She states they are very painful. She has not done anything for them. She states she does not have bandaids at home to protect them. Continues to wear same pair of shoes. No lacerations/bleeding/pus noted bilaterally. Bacitracin and bandaid applied bilaterally. Discussed with pt to change these daily for the next couple of days. Discussed if there is any bleeding or pus noted, please follow up with us. Tinea pedis of right foot 02/26/2024 Assessment & Plan (02/26/2024 3:44 PM EDT): Has been getting treatment with Lotrisone, has been doing it once daily for the last couple of weeks and states it has not been getting any better. Her daughter has been applying it. Today there does not appear to be any infection; the plantar aspect of the right foot has some skin sloughing noted but the skin underneath is pink and dry. Discussed that she does not need to apply the Lotrisone anymore but should keep her feet clean and dry and use lotion to keep her feet hydrated. Discussed using cerave, aquaphor, etc. Follow up as needed. Skin irritation 12/11/2023 Overview (12/11/2023): Likely irritation from waistband. Will trial steroid cream. Reviewed medication, administration, and potential side effects. Tremor of left hand 10/26/2022 Allergic rhinitis 10/26/2022 Diastasis recti 10/26/2022 Hypercholesterolemia 10/26/2022 Overview (06/23/2024): 12/2023: Component Ref Range & Units 6 mo ago 2 yr ago Cholesterol, Total (<200) MG/DL 142 Triglyceride (mg/dL) in Serum/Plasma (<150) MG/DL 89 HDL Cholesterol (>39) MG/DL 67 60 R LDL Cholesterol, Calculated (0-130) MG/DL 57 Non HDL Chol. (LDL+VLDL) (<160) MG/DL 75 On Atorvastatin 20mg - tolerating well. Will continue current treatment plan at this time. Hypothyroidism 10/26/2022 Overview (10/01/2024): Lab Results Component Value Date TSH 5.020 (H) 08/07/2024 On Levothyroxine 225mcg. Reports always feeling cold. Will repeat TSH today. Migraine 10/26/2022 Obstructive sleep apnea syndrome 10/26/2022 Overview (12/11/2023): Wears CPAP at night. Tolerating well. PCOS (polycystic ovarian syndrome) 10/26/2022 Vitamin D deficiency 10/26/2022 Overview (03/15/2024): Started Vit D supplementation. Will repeat level. Insomnia 10/11/2022 Depression 10/11/2022 Anxiety 10/11/2022 Schizoaffective disorder 10/11/2022 Overview (01/30/2024): With Anxiety, depression, PTSD. Engaged with Dom Carter at [facility] in [place] for medication. Sees Forrest at [facility] for therapy weekly on phone. Feeling symptoms are worsening. Starting to not want to leave the house and losing ghanshyam in doing things. Discussed options. Encouraged to discuss with therapist and prescriber. If feeling unheard by prescriber, encouraged to advocate for a different prescriber, but Ms. Dougherty is more comfortable getting a second opinion through [facility] provider at this time. Will refer to Shilpa for consult. 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 Started on Metformin - was allergic to it. Went to insulin in . Basaglar 82 units at night. Novolog 6 units tid with meals. Allergic to Ozempic/Victoza - severe diarrhea and abdominal pain. Had some episodes of hypoglycemia when intermittent fasting. Discussed blood sugar and stabilization - restarted snack prior to bed. On ARB and STATIN. EYE: Dr. Segura in [place] DENTIST: Has false teeth. FBS 60-100. Will continue current treatment plan at this time. Assessment & Plan (05/29/2024 10:05 PM EDT): Reviewed with Elyssa importance of holding/not taking short acting mealtime insulin unless she has the meal ready to eat in front of her. Also, hold the 6 unit Fiasp dose if before meal glucose reading is less than 150 until she knows how she feels and her CGM reflects how she responds to the small regular pre meal dose of the Fiasp. Confirms she has not been taking her Novolog for quite some time now (states has been out of Novolog due to not covered) but used to just take 10 units of Novolog with each meal and thinks that worked fine for her. Advised followup with her PCP and RD within a couple of weeks of starting the new short acting mealtime insulin, but call sooner if getting ANY hypoglycemic episodes to meet and review her CGM data. Discussed her low (34%) time in range and goal of increasing this and eliminating any hypoglycemic episodes and reducing hyperglycemic excursions (46% of time currently per Elyssa's review of her CGM at visit). Hirsutism 10/11/2022 Seasonal allergies 10/11/2022 Mixed stress and urge urinary incontinence 10/11 Overview (12/11/2023): Continued urinary incontience. Went to urology, tried Merbetriq but was not helpful. Will continue to discuss. Carpal tunnel syndrome of left wrist 10/11/2022 Mild intermittent asthma without complication Overview (06/02/2024): Has not had Symbicort. Needs Albuterol about once per month. Severe obesity 10/11/2022 Overview (03/15/2024): BMI 72. Needs bilateral total knee replacements but has to lose weight before surgeon will do it. Discussed options - has already tried intermittent fasting, but was having hypoglycemia. Tried Ozempic but had adverse effects of severe diarrhea and abdominal pain. Will refer to weight management. Completed HOME SERVICE ADVISOR paperwork for Isma[facility]. Assessment & Plan (05/25/2023 8:35 AM EDT): Discussed treatment options - will refer to weight management with Dr. Dietrich. Other chronic pain 10/11/2022 Knee osteoarthritis 10/11/2022 Overview (01/30/2024): Pt reports bone on bone arthritis, needs total knee replacement but needs to lose weight first. Seen by [facility] - gets cortisone injections, last done 12/20/23 - will have next 03/27/24. Have been helpful. Assessment & Plan (05/25/2023 8:35 AM EDT): Discussed treatment options - pt with significant allergies including Acetaminophen and NSAIDs. Has use Lidocaine patches in the past - aware difficult to get insurance to cover. Reviewed medication, administration, and potential side effects. Discussed OTC options such as IcyHot/BenGay while waiting for Lidocaine approval. Encouraged to trial. Reviewed non-pharmacologic pain relief, heat, ice, etc. PTSD (post-traumatic stress disorder) 10/11/2022 Acquired lymphedema 10/11/2022 Overview (01/07/2025): >>OVERVIEW FOR LOWER EXTREMITY EDEMA WRITTEN ON 08/07/2024 7:40 PM BY RILEY FRANCIS RN Patient has not been wearing compression stockings due to animal bite on 07/18/24 to right calf. Wound is healing well, scabbed with no signs of infection. Advised patient to resume compression stockings. Hypertension Overview (08/07/2024): BP Readings from Last 4 Encounters: 08/07/24 138/85 06/23/24 (!) 144/90 04/22/24 (!) 147/95 03/15/24 (!) 160/90 BP at goal today. Allergy to ACEI. Hx lymphedema, PCOS, and hirsutism - has allergy to Aldactone (rash). Chlorthalidone caused upset stomach. On Edicrin for diuretic. Discussed options - CCB vs BB. Has depression symptoms, will avoid BB. Currently tolerating amlodipine 5 mg. We will continue with current plan. Resolved Problems Problem Noted Date Diagnosed Date Resolved Date Wound of left leg 04/22/2024 06/23/2024 Overview (06/02/2024): Due to sensitive nature of the area, photos were not taken for documentation. Was engaged with wound clinic - seen today and discharged! Edema 11/24/2022 02/02/2023 Encounters Date Type Department Care Team Description 07/21/2025 Results Follow-Up [facility] MEDICAL [address] [place] [address] Sharmila Azar DO CBC auto differential, Comprehensive Metabolic Panel [[id number]] 07/18/2025 Refill [facility] [address] Francheska Tucker, DANCE MASTER 07/17/2025 Orders Only [address] [address] Sharmila Azar DO Arthralgia of both knees (Primary Dx); Lymphedema 07/17/2025 Results Follow-Up [address] [address] Sharmila Azar DO Cortisol, Total, Magnesium [id number], Sed Rate by Modified [place], Additional followed-up results: 3 07/10/[address] [address] PcpPat Unassigned [employer] (Phone Number # / ) 07/08/[address] [address] Nanyc Bridges LPN 07/02/[address] [address] Pcp[facility] Unassigned Kranthi holder 06/22/2025 1:45 PM EDT Office Visit [address] [address] Sharmila Azar DO Primary osteoarthritis of both knees (Primary Dx); Nail dystrophy; Long toenail; Type 2 diabetes mellitus with diabetic polyneuropathy, with long-term current use of insulin (CMS/[facility]); Muscle weakness of lower extremity; Diabetic polyneuropathy associated with type 2 diabetes mellitus (CMS/HCC); Acquired lymphedema; Transportation insecurity 06/20/2025 Travel 06/16/[address] [address] Que Pope CMA Pt-1 ride to [place] 06/14/2025 Travel 05/29/[address] [address] Sharmila Azar DO Type 2 diabetes mellitus with diabetic polyneuropathy, with long-term current use of insulin ([facility]) 05/27/[address] [place] [address] Sharmila Azar DO 05/23/[address] [address] Sharmila Azar DO PT-1 05/19/[address] [address] Sharmila Azar DO PT-1 05/17/[address] [address] Sharmila Azar DO Type 2 diabetes mellitus with diabetic polyneuropathy ([facility]) 05/04/2025 Refill [facility] MED[facility] [address] [place] [address] Sharmila Azar DO Allergy, sequela 04/29/[address] [address] Sharmila Azar DO PT-1 Rides 04/28/[address] [address] Sharmila Azar DO 04/25/2025 Orders Only [address] [address] Sharmila Azar, 04/24/[address] [address] Sharmila Azar DO from Last 3 Months Immunizations Immunization Administration Dates Next Due Hep B, adult 04/14/2011,11/15/2010,10/14/2010 INFLUENZA INJECTABLE QUADRIV ALANT CCIIV4 MDCK Multi-dose vial 09/01/2019 Influenza Quadrivalent Adjuvanted 11/01/2022 Influenza Whole 08/25/2005 Influenza injectable quadriv alent preservative free 08/21/2023,07/17/2020,07/11/2016,07/02 Influenza, IIV3, injectable 08/07/2024,1 ,07/17/2020,08/28,08/29/2017,07/11/2016,07/02/2015 ,08/12/2014,09/26/2013,06/07/2012,07/06,06/28/2011,06/24/2010, 9,08/25/2008,09/09/2007,08/17/2006, Influenza, seasonal, injecta ble, preservative free 08/07/2024,09/26/2013,07/20/2011 Moderna Covid-19 Vaccine 12+ 10/01/2024, 10/20/2021,03/18/2021,02/18 Pfizer Covid-19 Vaccine 12+ Bivalent 11/01/2022 Pneumococcal Conjugate PCV 20 06/23/2024 Pneumococcal Polysaccharide PPSV23 10/08/2015,,08/25/2005 Td (adult), unspecified 03/14/2001 Tdap 07/18/2024, 5,10/23/2014,02/14 Family History Medical History Relation Name Comments No Known Problems Brother Anxiety disorder Daughter Autism spectrum disorder Daughter Cancer Father samm hawk Depression Father samm hawk Heart disease Father samm hawk Lung cancer Father samm hawk from l shanda cancer, +smoker Stroke Father samm hawk Diabetes Mother vladimir hawk Heart disease Mother vladimir hawk Hypertension Mother vladimir hawk [place] Mother vladimir hawk after [place]. Stroke Mother vladimir hawk Thyroid disease Mother vladimir hawk Relation Name Status Comments Brother Alive Daughter Alive Father samm hawk Mother vladimir hawk Social History Tobacco Use Types Packs/Day Years Used Date Smoking Tobacco: Never Passive Smoke Exposure: Never Smokeless Tobacco: Never Tobacco Cessation:Counseling Given: [...] file Not on file Not on file Last Filed Vital Signs Vital Sign Reading Time Taken Comments Blood Pressure 154/84 06/22/2025 1:55 PM EDT Pulse 88 06/22/2025 1:55 PM EDT Temperature 36.7 C (98 F) 06/22/2025 1:55 PM EDT Respiratory Rate 16 12/01/2024 4:13 PM EST Oxygen Saturation 97% 06/22/2025 1:55 PM EDT Inhaled Oxygen Concentration - - Weight 168 kg (370 lb) 06/22/2025 1:55 PM EDT Height 157.5 cm (5' 2 ) 06/22/2025 1:55 PM EDT Body Mass Index 67.67 06/22/2025 1:55 PM EDT Plan of Treatment Health Maintenance Due Date Last Done Comments CT Colonography 1968 FIT DNA/Cologuard 1968 FIT 1968 FOBT 1968 Sigmoidoscopy 1968 Zoster Vaccines (1 of 2) 2018 Lipid Panel 12/11/2024 12/11/2023, 08/0 12/2021, 06/06/2022, Additional history exists Influenza Vaccine (#1) 2025 , 08/07/2024, 08/21/2023, Additional history exists Diabetes: Hemoglobin A1C 09/22/2025 025, 01/01/2025, 10/01/2024, Additional history exists Diabetes: Foot Exam 10/01/2025 10/01/2024, 10/01/2024, 10/01/2024, Additional history exists Disability Screening 10/26/2025 10/26/2024 SDOH Screening 11/01/2025 11/01/2024 Diabetes: Urine Protein Screening 01/01/2026 01/01/2025, 12/11/2023, 06/06/2022, Additional history exists Tobacco Screening 04/13/2026 04/13/2025 Eye Exam 05/28/2026 05/28/2024, 03/14/2023 Alcohol/Substance Use Screening 06/22/2026 06/22/2025 Depression Screening 06/22/2026 06/22/2025, 06/22/20 Mammogram 04/25/2027 04/25/2025, 04/06, 12/25/2021, Additional history exists Cervical Cancer Screening 07/17/2028 HPV/Cotest 07/17/2028 Pap Smear 07/17/2028 07/17/2023, 07/06, 08/08/2011 Colonoscopy 12/30/2030 12/30/2020, 12/30/2020 Colorectal Cancer Screening 12/30/2030 DTaP/Tdap/Td Vaccines (5 - Td or Tdap) 07/18/2034 07/18/2024, 12/24/2014, 10/23/2014, Additional history exists RSV Patients and Patients Aged 60 years or older (1 - 1-dose 75+ series) 2043 Hepatitis B Vaccines Completed 04/14/2011, 11/15/2010, 10/14/2010 HIV Screening Completed 12/14/2020 Hepatitis C Screening Completed 12/14/2020 Pneumococcal Vaccine: 50+ Years [...] patient's age to complete this topic Meningococcal Vaccine Aged Out No williams sonya eligible based on patient's age to complete this topic RSV under 20 months Aged Out No longe r eligible based on patient's age to complete this topic Rotavirus Vaccines Aged Out No longer eligible based on patient's age to complete this topic Procedures Procedure Name Priority Date/Time Associated Diagnosis Comments COMPREHENSIVE METABOLIC PANEL Routine 07/20/2025 9:20 AM EDT Arthralgia of both knees Lymphedema CBC WITH AUTO DIFFERENTIAL Routine 07/20/2025 9:20 AM EDT Arthralgia of both knees Lymphedema RHEUMATOID ARTHRITIS (RA) PROFILE Routine 07/20/2025 9:19 AM EDT Arthralgia of both knees Lymphedema ROEL SCREEN, IFA, W/REFL TITER AND PATTERN Routine 07/20/2025 9:19 AM EDT Arthralgia of both knees Lymphedema TSH W/REFLEX TO FT4 Routine 07/20/2025 9 :18 AM EDT Acquired hypothyroidism C-REACTIVE PROTEIN Routine 07/16/2025 9: 55 AM EDT Type 2 diabetes mellitus with diabetic polyneuropathy, with long-term current use of insulin ([facility]) SED RATE BY MODIFIED WESTERGREN Routine 07/16/2025 9:55 AM EDT Type 2 diabetes mellitus with diabetic polyneuropathy, with long-term current use of insulin ([facility]) MAGNESIUM Routine 07/16/2025 9:55 AM EDT Type 2 diabetes mellitus with diabetic polyneuropathy, with long-term current use of insulin ([facility]) CORTISOL, TOTAL Routine 07/16/2025 9:55 AM EDT Type 2 diabetes mellitus with diabetic polyneuropathy, with long-term current use of insulin (CMS/HCC) POCT GLYCOSYLATED HEMOGLOBIN (HGB A1C) Routine 06/22/2025 2:22 PM EDT Type 2 diabetes mellitus with diabetic polyneuropathy, with long-term current use of insulin (CMS/HCC) BI MAMMOGRAM SCREENING TOMOSYNTHESIS BILATERAL Routine 04/25/2025 1:53 PM EDT BI MAMMOGRAM SCREENING BILATERAL Routine 04/25/2025 Encounter for screening mammogram for malignant neoplasm of breast ALBUMIN/CREATININE RATIO, RANDOM URINE Routine 01/01/2025 12:00 AM EST Type 2 diabetes mellitus with diabetic polyneuropathy, with long-term current use of insulin ([facility]) DIABETES EYE EXAM Routine 05/28/2024 5:27 PM EDT LIPID PANEL, STANDARD Routine 12/11/2023 12:51 PM EST Hypercholesterolemia PAP SMEAR Routine 07/17/2023 12:00 AM EDT HM COLONOSCOPY Routine 12/30/2020 ZZZ HISTORICAL HEPATITIS C ANTIBODY TEST Routine 12/14/2020 7:58 AM EST HIV 1/2 ANTIGEN/ANTIBODY, FOURTH GENERATION W/RFL Routine 12/14/2020 7:58 AM EST from Last 3 Months or Most Recently Relevant to Health Maintenance Results * (ABNORMAL) CBC auto differential (07/20/2025 9:20 AM EDT) White Blood Cell Count 12.4(H) 3.4 - 10.8 x10E3/uL [facility] Red Blood Cell Count 4.76 3.77 - 5.28 x10E6/uL [facility] 1 Hemoglobin 13.5 11.1 - 15.9 g/dL [facility] 1 Hematocrit 42.8 34.0 - 46.6 % [facility] 1 MCV 90 79 - 97 fL [facility] 1 MCH 28.4 26.6 - 33.0 pg [facility] 1 MCHC 31.5 31.5 - 35.7 g/dL [facility] 1 RDW 14.0 11.7 - 15.4 % [facility] 1 Platelet Count 266 150 - 450 x10E3/uL [facility] 1 Neutrophils 61 Not Estab. % [facility] 1 Lymphocytes 30 Not Estab. % [facility] 1 Monocytes 6 Not Estab. % [facility] 1 Eosinophils 2 Not Estab. % [facility] 1 Basophils 0 Not Estab. % [facility] 1 Absolute Neutrophils 7.7(H) 1.4 - 7.0 x10E3/uL [facility] 1 Absolute Lymphocytes 3.8(H) 0.7 - 3.1 x10E3/uL [facility] 1 Absolute Monocytes 0.7 0.1 - 0.9 x10E3/uL [facility] 1 Absolute Eosinophils 0.2 0.0 - 0.4 x10E3/uL [facility] 1 Absolute Basophils 0.0 0.0 - 0.2 x10E3/uL [facility] 1 Immature Granulocytes 1 Not Estab. % [facility] 1 Immature Grans (Abs) 0.1 0.0 - 0.1 x10E3/uL [facility] 1 Blood Venous blood specimen / Unknown 07/20/2025 9:20 AM EDT 07/20/2025 Narrative Resulting Agency Comment Performed at: 01 - [facility] [id number] [employer] Supervisor: Megan Curry MD, Phone: [phone] Sharmila Azar LAB BLOOD ORDERABLES Final Res ult [facility] * (ABNORMAL) Comprehensive Metabolic Panel [[id number]] (07/20/2025 9:20 AM EDT) Glucose 143(H) 70 - 99 mg/dL [facility] 1 Urea Nitrogen (BUN) 26(H) 6 - 24 mg/dL [facility] 1 Creatinine, Serum 0.80 0.57 - 1.00 mg/dL [facility] 1 eGFR 86 >59 mL/min/1.7 3 [facility] 1 BUN/Creatinine Ratio 33(H) 9 - 23 [facility] 1 Sodium 139 134 - 144 mmol/L [facility] 1 Potassium 4.7 3.5 - 5.2 mmol/L [facility] 1 Chloride 103 96 - 106 mmol/L [facility] 1 Anion Gap 16.0 10.0 - 18.0 mmol/L [facility] 1 Carbon Dioxide 20 20 - 29 mmol/L [facility] 1 Calcium 9.5 8.7 - 10.2 mg/dL [facility] 1 Protein, Total 6.7 6.0 - 8.5 g/dL [facility] 1 Albumin 3.7(L) 3.8 - 4.9 g/dL [facility] 1 Globulin 3.0 1.5 - 4.5 g/dL [facility] 1 Bilirubin, Total 1.1 0.0 - 1.2 mg/dL [facility] 1 Alkaline Phosphatase 117 51 - 125 IU/L [facility] 1 Comment:Please note refere nce interval change AST 14 0 - 40 IU/L [facility] 1 ALT 20 0 - 32 IU/L [facility] 1 Blood Venous blood specimen / Unknown 07/20/2025 9:20 AM EDT 07/20/2025 Narrative Resulting Agency Comment Performed at: - [facility] [id number] [employer] Supervisor: Megan Curry MD, Phone: [phone] [facility] BLOOD ORDERABLES Final Res ult Performing Organization Address [facility] Co de Phone Number [facility] * Rheumatoid Arthritis (RA) Profile [[id number]] (07/20/2025 9:19 AM EDT) Rheumatoid Factor (RF) <10.0 <14.0 IU/mL [facility] 1 Anti-CCP Ab, IgG/IgA 3 0 - 19 units [facility] 1 Comment: Negative <20 Weak positive 20 - 39 Moderate positive 40 - 59 Strong positive >59 Blood Venous blood specimen / Unknown 07/20/2025 9:19 AM EDT 07/20/2025 Narrative Resulting Agency Comment Performed at: - [facility] [id number] [employer] Supervisor: Megan Curry MD, Phone: [phone] [facility] LAB BLOOD ORDERABLES Final Res ult Performing Organization Address [facility]/ZIP Co de Phone Number [facility] * ROEL Screen,IFA, with Reflex to Titer and Pattern (07/20/2025 9:19 AM EDT) ROEL Screen, IFA Negative [facility] 1 Comment: Negative <1:80 Borderline 1:80 Positive >1:80 ICAP nomenclature: AC-0 For more information about Hep-2 cell patterns use ANApatterns.org, the official website for the International Consensus on Antinuclear Antibody (ROEL) Patterns (ICAP). Blood Venous blood specimen / Unknown 07/20/2025 9:19 AM EDT 07/20/2025 Narrative Resulting Agency Comment Performed at: - [facility] [id number] [employer] Supervisor: Megan Curry MD, Phone: [phone] [facility] LAB BLOOD ORDERABLES Final Res ult Performing Organization Address [facility] Co de Phone Number [facility] * (ABNORMAL) TSH with Reflex to Free T4 [[id number]] (07/20/2025 9:18 AM EDT) TSH 0.293(L) 0.450 - 4.500 uIU/mL [facility] 1 Blood Venous blood specimen / Unknown 07/20/2025 9:18 AM EDT 07/20/2025 Narrative Resulting Agency Comment Performed at: - [facility] [address] [id number] [employer] Supervisor: Megan Curry MD, Phone: [phone] Francheska DEL RIOP LAB BLOOD ORDERABLES Final Resul t Performing Organization Address [facility] de Phone Number [facility] * (ABNORMAL) Sed Rate by Modified Lilibeth (07/16/2025 9:55 AM EDT) Sed Rate By Modified Rogelioergren 84(H) 0 - 40 mm/hr [facility] 1 Blood Venous blood specimen / Unknown 07/16/2025 9:55 AM EDT 07/16/2025 Narrative Resulting Agency Comment Performed at: - [facility] [id number] [employer] Supervisor: Megan Curry MD, Phone: [phone] [facility] LAB BLOOD ORDERABLES Final Res ult Performing Organization Address [facility] de Phone Number [facility] * (ABNORMAL) C-reactive Protein (07/16/2025 9:55 AM EDT) [facility] C-Reactive Protein 23(H) 0 - 10 mg/L [facility] 1 Blood Venous blood specimen / Unknown 07/16/2025 9:55 AM EDT 07/16/2025 Narrative Resulting Agency Comment Performed at: [address] [place] [id number] [employer] Supervisor: Megan Curry MD, Phone: [phone] [facility] LAB BLOOD ORDERABLES Final Res ult Performing Organization Address [facility] de Phone Number [facility] * Magnesium [id number] (07/16/2025 9:55 AM EDT) [facility] Magnesium 1.9 1.6 - 2.3 mg/dL [facility] 1 Blood Venous blood specimen / Unknown 07/16/2025 9:55 AM EDT 07/16/2025 Narrative Resulting Agency Comment Performed at: [address] [place] [id number] [employer] Supervisor: Megan Curry MD, Phone: [phone] [facility] LAB BLOOD ORDERABLES Final Res ult Performing Organization Address [facility] de Phone Number [facility] * (ABNORMAL) Cortisol, Total (07/16/2025 9:55 AM EDT) [facility] Cortisol, Total 0.4(L) 6.2 - 19.4 ug/dL [facility] Comment: Please Note: The reference interval and flagging for this test is for an AM collection. If this is a PM collection please use: Cortisol PM: 2.3-11.9 Blood Venous blood specimen / Unknown 07/16/2025 9:55 AM EDT 07/16/2025 Narrative Resulting Agency Comment Performed at: [address] [place], [place] [address], [place] [id number] [employer] Supervisor: Megan Curry MD, Phone: [phone] Sharmila Azar LAB BLOOD ORDERABLES Final Res ult [facility] * (ABNORMAL) POCT glycosylated hemoglobin (Hgb A1c) (06/22/2025 2:22 PM EDT) Hemoglobin A1C 7.1(A) 4.0 - 5.7 % Blood Capillary blood specimen / Unknown 06/22/2025 2:22 PM EDT Sharmila Azar DO POINT OF CARE TEST ENTER/EDIT ORDERABLES Final Result * BI Mammogram Screening Tomosynthesis Bilateral (04/25/2025 1:53 PM EDT) Anatomical Region Laterality Modality Breast Bilateral Mammography 04/25/2025 1:53 PM EDT Narrative 04/27/2025 4:28 PM EDT PROCEDURE: MM Digital Mammo Screening INDICATION: Screening for breast cancer. No known palpable abnormalities. COMPARISON: [facility] dating back to 01/14/2013. TECHNIQUE: Full-field digital CC and MLO 3D tomosynthesis images of both breasts were acquired. Computer-aided detection (CAD) was utilized in the interpretation of this study. DENSITY: There are scattered areas of fibroglandular density. FINDINGS: No suspicious masses, suspicious microcalcifications, or areas of architectural distortion are seen in either breast to suggest malignancy. IMPRESSION: No mammographic evidence of malignancy. RECOMMENDATION: Annual mammographic screening BI-RADS: 1 (Negative) Lay letter mailed to patient WSN: [id number] Ordering Physician: Sharmila Azar Dictated By: Kayleigh Hall MD, I Dictated Date/Time: 04/27/25 4:25 pm Reviewed By: Kayleigh Hall MD, I Signed By: Kayleigh Hall MD, I Signed Date/Time: 04/27/25 4:25 pm Transcribed By: GITA Labor Relations Teacher Date/Time: 04/27/25 4:22 pm Birads: Procedure Note Donotuseinterpreter, Image - 04/27/2025 PROCEDURE: MM Digital Mammo Screening INDICATION: Screening for breast cancer. No known palpableabnormalities. COMPARISON: [facility] dating back to 01/14/2013. TECHNIQUE: Full-field digital CC and MLO 3D tomosynthesis images of bothbreasts were acquired. Computer-aided detection (CAD) was utilized in theinterpretation of this study. DENSITY: There are scattered areas of fibroglandular density. FINDINGS: No suspicious masses, suspicious microcalcifications, or areasof architectural distortion are seen in either breast to suggestmalignancy. IMPRESSION: No mammographic evidence of malignancy. RECOMMENDATION: Annual mammographic screening BI-RADS: 1 (Negative) Lay letter mailed to patient WSN: [id number] Ordering Physician: Sharmila Azar Dictated By: Kayleigh Hall MD, I Dictated Date/Time: 04/27/25 4:25 pm Reviewed By: Kayleigh Hall MD, I Signed By: Kayleigh Hall MD, I Signed Date/Time: 04/27/25 4:25 pm Transcribed By: GITA Labor Relations Teacher Date/Time: 04/27/25 4:22 pm Birads: Sharmila Azar DO IMG BI PROCEDURES Final Result * BI Mammogram Screening Bilateral (04/25/2025) Anatomical Region Laterality Modality Breast Bilateral Mammography Francheska DEL RIOP IMG BI PROCEDURES Final Result * Albumin/Creatinine Ratio, Random Urine (01/01/2025 12:00 AM EST) Creatinine, Random Urine 52.3 Not Estab. mg/dL [facility] 1 Albumin, Urine <3.0 Not Estab. ug/mL [facility] 1 Albumin/Creatini ne Ratio <6 0 - 29 mg/g creat [facility] 1 Comment: Normal: 0 - 29 Moderately increased: 30 - 300 Severely increased: >300 Urine (Urine, Random) 01/01/2025 01/01/2025 Comment:URINE Narrative [facility] 1 - 01/04/2025 6:35 AM EST Performed at: - [facility] [id number] [employer] Supervisor: Megan Curry MD, Phone: [phone] Sharmila Azar DO LAB URINE ORDERABLES Final Res ult Performing Organization Address City/[facility]/ZIP Co de Phone Number [facility] * Hm Diabetes Eye Exam (05/28/2024 5:27 PM EDT) Historical Provider HEALTH MAINTENANCE Final Result * Lipid panel (12/11/2023 12:51 PM EST) Cholesterol, Total 142 (<200) MG/DL [facility] Triglyceride (mg/dL) in Serum/Plasma 89 (<150) MG/DL [facility] HDL Cholesterol 67 (>39) MG/DL [facility] LDL Cholesterol, Calculated 57 (0-130) MG/DL [facility] Non HDL Chol. (LDL+VLDL) 75 (<160) MG/DL [facility] Comment: Testing performed or reported by [facility], a Service of [facility], [address] [place] [address] Rojas Garza MD, Repeater Operator [facility]# [id number] Blood Venous blood specimen / Unknown 12/11/2023 12:51 PM EST 12/11/2023 12:52 PM EST Francheska SALVADOR LAB BLOOD ORDERABLES Final Resul t Performing Organization Address [facility] Co de Phone Number [address] [address] * Pap Smear (07/17/2023 12:00 AM EDT) Swab Historical Provider LAB CYTOLOGY ORDERABLES F inal Result Performing Organization Address [facility] Co de Phone Number [address] [address] * Hm Colonoscopy (12/30/2020) Colonoscopy repeat in 10 yeasr Historical Provider HEALTH MAINTENANCE Final Result * -Hepatitis C Antibody Test (12/14/2020 7:58 AM EST) ANTI-HEPATITIS C NEGATIVE (NEG) [facility] Comment: Reference range: Negative This test was performed on the [employer] immunoassay system. 12/14/2020 7:58 AM EST us Shilpa Chaloux SOCIAL DIRECTOR HISTORICAL/NON ORDERABLE LABS Final Result Performing Organization Address [facility] de Phone Number [facility] [address] * -HIV AB-AG 4TH GENERATION (12/14/2020 7:58 AM EST) RESULT 4TH GEN HIV AB-AG NEGATIVE (NEG) [facility] Comment: Negative for antibodies to HIV 1 and HIV 2 and P24 antigen. Reference range: Negative Additional note: Written patient authorization is required for each separate release of this test result. This test was performed on the [employer] Student [employer]visor immunoassay system. 12/14/2020 7:58 AM EST Shilpa Paul SOCIAL DIRECTOR LAB BLOOD ORDERABLES Final Re sult Performing Organization Address [facility] Phone Number [facility] [address] from Last 3 Months or Most Recently Relevant to Health Maintenance Insurance [place] [address] [place] [id number] [facility] Advance Directives Documents on File Type Date Recorded Patient Furnace Attendant Expl anation HealthCare Proxy 10/24/2023 12:48 PM HCP Care Teams Consumer Credit Counselor Relationship Specialty Start Date End Date Lei Thacker Health Navigator 09/17/24
--- OUTSIDE RECORDS SUMMARY | 2025-07-22 12:12 | XMS_ITS | Encounter Summary ---
Author Organization [employer] Address [address] [place] [address] 7 [place] [address] Care Team Providers Care Preformer Imp[employer]ated [employer]rics Name Role Phone Lei Thacker Unavailable Unavailable Reason for Referral * Consultation (Routine) - Pending Review Specialty Diagnoses / Procedures Referred By Cristina coughlin Referred To Contact Endocrinology Diagnoses Low serum cortisol level Sharmila Azar DO [address] [place] [address] Phone: tel: fax: [facility] Endocr[facility]ology [address] [facility] 3rd Floor [address] [place], [place] Phone: tel: fax: Referral ID Status Reason Start Date Expiration Date Visits Requested Visits Authorized [id number] Pending Review Specialty Services Required 07/17/2025 07/17/2026 1 1 Encounter Details Date Type Department Care Team (Late st Contact Info) Description 07/17/2025 Results Follow-Up [facility] MEDICAL [address] [place] [address] Sharmila Azar DO [address] [place] [address] Cortisol, Total, Magnesium [id number], Sed Rate by Modified Lilibeth, Additional followed-up results: 3 Social History Tobacco Use Types Packs/Day Years [...] your housing situation today? I have ann susan 12/07/[address] you li [...] as of this encounter Plan of Treatment Pending Results Name Type Priority Associated Diagnoses Date /Time ACTH, Plasma Lab Routine Low serum cortisol level 07/20/2025 9:20 AM EDT Scheduled Orders Name Type Priority Associated Diagnoses Orde r Schedule ACTH, Plasma Lab Routine Low serum cortisol level Expected: 07/17/2025 (Approximate), Expires: 07/17/2026 Scheduled Referrals Name Type Priority Associated Diagnoses Order Schedule Referral to Endocrinology Outpatient Referral Routine Low serum cortisol level Expected: 07/17/2025 (Approximate), Expires: 07/17/2026 documented as of this encounter Procedures Procedure Name Priority Date/Time Associated Diagnosis Comments RHEUMATOID ARTHRITIS (RA) PROFILE Routine 07/20/2025 9:19 AM EDT Arthralgia of both knees Lymphedema ROEL SCREEN, IFA, W/REFL TITER AND PATTERN Routine 07/20/2025 9:19 AM EDT Arthralgia of both knees Lymphedema documented in this encounter Results * Rheumatoid Arthritis (RA) Profile [[id number]] (07/20/2025 9:19 AM EDT) Rheumatoid Factor (RF) <10.0 <14.0 IU/mL [facility] Anti-CCP Ab, IgG/IgA 3 0 - 19 units [facility] 1 Comment: Negative <20 Weak positive 20 - 39 Moderate positive 40 - 59 Strong positive >59 Blood Venous blood specimen / Unknown 07/20/2025 9:19 AM EDT 07/20/2025 Narrative Resulting Agency Comment Performed at: [address] [id number] Head Of Science: Megan Curry MD, Phone: [phone] [facility] LAB BLOOD ORDERABLES Final Res ult [facility] * ROEL Screen,IFA, with Reflex [...] Resulting Agency Comment Performed at: 01 - [facility] [place] [id number] Head Of Science: Megna Curry MD, Phone: [phone] [facility] LAB BLOOD ORDERABLES Final Res ult Performing Organization Address [facility]/ZIP Co de Phone Number [facility] 1 documented in this encounter Visit Diagnoses Diagnosis Low serum cortisol level- Primary Arthralgia of both knees Lymphedema Other noninfectious lymphedema documented in this encounter Additional Health Concerns Assessment Noted Time PHQ-9 Depression Total Score: 6 06/22/20 25 2:22 PM EDT documented as of this encounter Care Teams Preformer [employer]ated Fabrics Relationship Specialty Start Date End Date Lei Thacker Health Navigator 09/17/24 documented as of this encounter
--- OUTSIDE RECORDS SUMMARY | 2025-07-22 12:12 | XMS_ITS | Encounter Summary ---
Author Organization [employer] Address [address] [facility] 7t [place] [address] Care Team Providers Care Strike Out Machine Operator Name Role Phone Lei Thacker Unavailable Unavailable Sharmila Azar DO Primary Care Provider [phone] Inactive/Transferred Primary Care Provider Unava ilable Encounter Details Date Type Department Care Team (Late st Contact Info) Description 11/21/2024 Orders Only [facility] MEDICAL [address] [place], [place] [id number] Provider, MD Sharad Social History Tobacco Use [...] Procedure Name Priority Date/Time Associated Diagnosis Comments HM PAP/HPV Routine 07/17/2023 8:01 AM EDT documented in this encounter Results * HM PAP/HPV (07/17/2023 8:01 AM EDT) us Historical Provider HEALTH MAINTENANCE Final Result documented in this encounter Visit Diagnoses Not on filedocumented in this encounter Additional Health Concerns Assessment Noted Time PHQ-9 Depression Total Score: 10 024 7:39 AM EST documented as of this encounter Care Teams Strike Out Machine Operator Relationship Specialty Start Date End Date Sharmila Azar DO [address] [place] [address] PCP - General Family Medicine 11/02/24 06/17/25 Inactive/Transferred PCP - General 06/18/25 06/18/25 Lei Thacker Health Navigator 09/17/24 documented as of this encounter
--- OUTSIDE RECORDS SUMMARY | 2025-07-22 12:12 | XMS_ITS | Encounter Summary ---
Author Organization [employer] Address [address] [place] [address] [address] [place] [address] Care Team Providers Care Marinator Name Role Phone Lei Thacker Unavailable Unavailable Sharmila Azar DO Primary Care Provider [phone] Inactive/Transferred Primary Care Provider Unava ilable Reason for Visit * Reason Onset Date Comments Med Refill 12/24/2024 Encounter Details Date Type Department Care Team (Late st Contact Info) Description 12/24/2024 Refill [place] [facility] MED[facility] [address] [place] [address] Sharmila Azar DO [address] [place] [address] Anxiety; PTSD (post-traumatic stress disorder) Social History [...] * Telephone Encounter - Kameron Lombardi - 12/25/2024 5:24 PM EST Rx was sent to the pharmacy today documented in this encounter Plan of Treatment Not on file documented as of this encounter Visit Diagnoses Diagnosis Anxiety Anxiety state, unspecified PTSD (post-traumatic stress disorder) Posttraumatic stress disorder documented in this encounter Additional Health Concerns Assessment Noted Time PHQ-9 Depression Total Score: 10 024 7:39 AM EST documented as of this encounter Care Teams Marinator Relationship Specialty Start Date End Date Sharmila Azar DO [address] [place] [address] PCP - General Family Medicine 11/02/24 06/17/25 Inactive/Transferred PCP - General 06/18/25 06/18/25 Lei Thacker Health Navigator 09/17/24 documented as of this encounter
--- OUTSIDE RECORDS SUMMARY | 2025-07-22 12:12 | XMS_ITS | Encounter Summary ---
Author Organization [employer] Address [address] [place] [address] [address] [place] [address] Care Team Providers Care Coin Box Collector Name Role Phone Lei Thacker Unavailable Unavailable Sharmila Azar DO Primary Care Provider [phone] Inactive/Transferred Primary Care Provider Unava ilable Reason for Visit * Reason Comments Med Refill Encounter Details Date Type Department Care Team (Late st Contact Info) Description 11/09/2024 Refill [facility] MEDICAL [address] [place] [address] Francheska Tucker FNP [address] [place] [address] Acquired hypothyroidism Social History Tobacco Use Types Packs/Day Years [...] as of this encounter Visit Diagnoses Diagnosis Acquired hypothyroidism Unspecified hypothyroidism documented in this encounter Additional Health Concerns Assessment Noted Time PHQ-9 Depression Total Score: 10 12/17/2 024 7:39 AM EST documented as of this encounter Care Teams Coin Box Collector Relationship Specialty Start Date End Date Sharmila AzarDO [address] [place] [address] PCP - General Family Medicine 11/02/24 06/17/25 Inactive/Transferred PCP - General 06/18/25 06/18/25 Lei Thacker Health Navigator 09/17/24 documented as of this encounter
--- OUTSIDE RECORDS SUMMARY | 2025-07-22 12:12 | XMS_ITS | Encounter Summary ---
Author Organization [employer] Address [address] [place] [address] 7 [place] [address] Care Team Providers Care Water Use Inspector Name Role Phone Shilpa Miller CNP Primary Care Provider Francheska Tucker Primary Care Provider [phone] Lei Thacker Unavailable Unavailable Sharmila Azar DO Primary Care Provider [phone] Inactive/Transferred Primary Care Provider Unava ilable Encounter Details Date Type Department Care Team (Late st Contact Info) Description 11/30/2022 Abstract [place] [facility] [address] [place] [address] Shilpa Miller CNP 73 [place] [address] Social History Tobacco Use Types Packs/Day Years [...] on filedocumented in this encounter Care Teams Water Use Inspector Relationship Specialty Start Date End Date Shilpa Miller CNP [address] [place] [address] PCP - General Family Medicine 10/16/22 10/24/23 Francheska Tucker FNP [address] [place] [address] PCP - General Family Medicine 10/25/23 11/01/24 Sharmila Azar DO [address] [place] [address] PCP - General Family Medicine 11/02/24 06/17/25 Inactive/Transferred PCP - General 06/18/25 06/18/25 Lei Thacker Health Navigator 09/17/24 documented as of this encounter
--- OUTSIDE RECORDS SUMMARY | 2025-07-22 12:12 | XMS_ITS | Encounter Summary ---
Author Organization [employer] Address [address] [place] [address] 7t [place] [address] Care Team Providers Care Clutch Rebuilder Name Role Phone Francheska Tucker Primary Care Provider [phone] Lei Thacker Unavailable Unavailable Sharmila Azar DO Primary Care Provider [phone] Inactive/Transferred Primary Care Provider Unava ilable Encounter Details Date Type Department Care Team (Late st Contact Info) Description 07/04/2024 Orders Only [place] [facility] 73 [place] [address] Francheska Tucker FNP 73 [place] [address] Social History Tobacco Use Types Packs/Day Years [...] documented as of this encounter Care Teams Clutch Rebuilder Relationship Specialty Start Date End Date Francheska Tucker FNP 73 [place] [address] PCP - General Family Medicine 10/25/23 11/01/24 Sharmila Azar DO 73 [facility] [place] [address] PCP - General Family Medicine 11/02/24 06/17/25 Inactive/Transferred PCP - General 06/18/25 06/18/25 Lei Thacker Health Navigator 09/17/24 documented as of this encounter
--- OUTSIDE RECORDS SUMMARY | 2025-07-22 12:12 | XMS_ITS | Encounter Summary ---
Author Organization [employer] Address [address] [place] [address] 7t [place] [address] Care Team Providers Care Geological Aide Name Role Phone Lei Thacker Unavailable Unavailable Encounter Details Date Type Department Care Team (Late st Contact Info) Description 07/17/2025 Orders Only [place] [facility] 73 [place] [address] Sharmila Azar DO 73 [place] [address] Arthralgia of both knees (Primary Dx); Lymphedema Social History Tobacco Use Types Packs/Day Years [...] Procedure Name Priority Date/Time Associated Diagnosis Comments CBC WITH AUTO DIFFERENTIAL Routine 07/20/2025 9:20 AM EDT Arthralgia of both knees Lymphedema COMPREHENSIVE METABOLIC PANEL Routine 07/20/2025 9:20 AM EDT Arthralgia of both knees Lymphedema documented in this encounter Results * (ABNORMAL) Comprehensive Metabolic Panel [[id number]] (07/20/2025 9:20 AM EDT) Glucose 143(H) 70 [...] Resulting Agency Comment Performed at: 01 - [facility] [id number] Shank Tapper: Megan Curry MD, Phone: [phone] us Sharmila Azar DO LAB BLOOD ORDERABLES Final Res ult [facility] 1 * (ABNORMAL) CBC auto differential (07/20/2025 9:20 [...] Resulting Agency Comment Performed at: 01 - [facility] [id number] Shank Tapper: Megan Curry MD, Phone: [phone] us Sharmila Azar DO LAB BLOOD ORDERABLES Final Res ult [facility] 1 documented in this encounter Visit Diagnoses Diagnosis Arthralgia of both knees- Primary Lymphedema Other noninfectious lymphedema documented in this encounter Additional Health Concerns Assessment Noted Time PHQ-9 Depression Total Score: 6 06/22/20 25 2:22 PM EDT documented as of this encounter Care Teams Geological Aide Relationship Specialty Start Date End Date Lei Thacker Health Navigator 09/17/24 documented as of this encounter
--- OUTSIDE RECORDS SUMMARY | 2025-07-22 12:12 | XMS_ITS | Encounter Summary ---
Author Organization [employer] Address [address] [place] [address] 7 [place] [address] Care Team Providers Care Weatherization Coordinator Name Role Phone Shilpa Miller CNP Primary Care Provider [phone] Francheska Tucker Primary Care Provider [phone] Lei Thacker Unavailable Unavailable Sharmila Azar DO Primary Care Provider [phone] Inactive/Transferred Primary Care Provider Unava ilable Reason for Visit * Reason Comments Med Refill Encounter Details Date Type Department Care Team (Late st Contact Info) Description 07/25/2023 Refill Pat [facility] MED[facility] 73 [place] [address] Shilpa Miller CNP 73 [place] [address] Hypothyroidism, unspecified Social History Tobacco Use Types Packs/Day Years [...] Notes * Telephone Encounter - Luiza Mora - 07/25/2023 3:10 PM EDT Sent on 9/11/23 duplicate documented in this encounter Plan of Treatment Not on file documented as of this encounter Visit Diagnoses Diagnosis Hypothyroidism, unspecified documented in this encounter Care Teams Weatherization Coordinator Relationship Specialty Start Date End Date Shilpa Miller CNP [address] [place] [address] PCP - General Family Medicine 10/16/22 10/24/23 Francheska Tucker FNP [address] [place] [address] PCP - General Family Medicine 10/25/23 11/01/24 Sharmila Azar DO 73 [facility] [place] [address] PCP - General Family Medicine 11/02/24 06/17/25 Inactive/Transferred PCP - General 06/18/25 06/18/25 Lei Thacker Health Navigator 09/17/24 documented as of this encounter
--- OUTSIDE RECORDS SUMMARY | 2025-07-22 12:12 | XMS_ITS | Encounter Summary ---
Author Organization [employer] Address 75 [facility] 7t [place] [address] Care Team Providers Care Site Project Manager Name Role Phone Francheska Tucker Primary Care Provider [phone] Lei Thacker Unavailable Unavailable Sharmila Azar DO Primary Care Provider [phone] Inactive/Transferred Primary Care Provider Unava ilable Encounter Details Date Type Department Care Team (Late st Contact Info) Description 07/25/2024 Orders Only [place] [facility] [address] [place] [address] Francheska Tucker FNP [address] [place] [address] Social History Tobacco Use Types Packs/Day Years [...] Procedure Name Priority Date/Time Associated Diagnosis Comments BASIC METABOLIC PANEL Routine 07/23/2024 9:03 AM EDT XR TIBIA FIBULA 2 VIEWS RIGHT Routine 07/23/2024 9:00 AM EDT documented in this encounter Results * Basic Metabolic Panel (07/23/2024 9:03 AM EDT) Blood Venous blood specimen / Unknown Result [facility] Francheska SALVADOR LAB BLOOD ORDERABLES Final Resul t * XR Tibia Fibula 2 Views Right (07/23/2024 9:00 AM EDT) Anatomical Region Laterality Modality Lower Extremities, Lower Leg Right Rad iographic Imaging Francheska SALVADOR IMG XR PROCEDURES Final Result documented in this encounter Visit Diagnoses Not on filedocumented in this encounter Additional Health Concerns Assessment Noted Time PHQ-9 Depression Total Score: 20 024 7:38 AM EDT documented as of this encounter Care Teams Site Project Manager Relationship Specialty Start Date End Date Francheska Tucker FNP 73 [place] [address] PCP - General Family Medicine 10/25/23 11/01/24 Sharmila Azar DO 73 [place] [address] PCP - General Family Medicine 11/02/24 06/17/25 Inactive/Transferred PCP - General 06/18/25 06/18/25 Lei Thacker Health Navigator 09/17/24 documented as of this encounter
--- OUTSIDE RECORDS SUMMARY | 2025-07-22 12:12 | XMS_ITS | Encounter Summary ---
Author Organization [employer] Address [address] [place] [address] 7t [place] [address] Care Team Providers Care Computer Technology Trainer Name Role Phone Shilpa Miller MRAIA C Primary Care Provider [phone] Francheska Tucker Primary Care Provider [phone] Lei Thacker Unavailable Unavailable Sharmila Azar DO Primary Care Provider [phone] Inactive/Transferred Primary Care Provider Unava ilable Encounter Details Date Type Department Care Team (Late st Contact Info) Description 12/01/2022 Orders Only [facility] MEDICAL [address] [place] [address] Avelina Fulton FNP Type 2 diabetes mellitus with diabetic polyneuropathy, with long-term current use of insulin ([facility]) (Primary Dx) Social History Tobacco Use Types Packs/Day Years [...] polyneuropathy, with long-term current use of insulin ([facility])- Primary documented in this encounter Care Teams Computer Technology Trainer Relationship Specialty Start Date End Date Shilpa Miller CNP [address] [place] [address] PCP - General Family Medicine 10/16/22 10/24/23 Francheska Tucker FNP [address] [place] [address] PCP - General Family Medicine 10/25/23 11/01/24 Sharmila Azar DO [address] [place] [address] PCP - General Family Medicine 11/02/24 06/17/25 Inactive/Transferred PCP - General 06/18/25 06/18/25 Lei Thacker Health Navigator 09/17/24 documented as of this encounter
--- OUTSIDE RECORDS SUMMARY | 2025-07-22 12:12 | XMS_ITS | Encounter Summary ---
Author Organization [employer] Address [address] [place] [address] 7t [place] [address] Care Team Providers Care Exhaust Equipment Operator Name Role Phone Lei Thacker Unavailable Unavailable Sharmila Azar DO Primary Care Provider [phone] Inactive/Transferred Primary Care Provider Unava ilable Reason for Visit * Reason Onset Date Comments Med Refill 11/05/2024 Encounter Details Date Type Department Care Team (Late st Contact Info) Description 11/05/2024 Refill [place] [facility] [address] [place] [address] Shilpa Miller, MARIA C [address] [place] [address] Type 2 diabetes mellitus with diabetic polyneuropathy ([facility]/HCC) Social History Tobacco Use Types Packs/Day Years [...] documented as of this encounter Care Teams Exhaust Equipment Operator Relationship Specialty Start Date End Date Sharmila Azar DO [address] [place] [address] PCP - General Family Medicine 11/02/24 06/17/25 Inactive/Transferred PCP - General 06/18/25 06/18/25 Lei Thacker Health Navigator 09/17/24 documented as of this encounter
--- OUTSIDE RECORDS SUMMARY | 2025-07-22 12:13 | XMS_ITS | Encounter Summary ---
Author Organization [employer] Address [address] [place] [address] 7 [place] [address] Care Team Providers Care Ecology Professor Name Role Phone Shilpa Miller CNP Primary Care Provider [phone] Francheska Tucker Primary Care Provider [phone] Lei Thacker Unavailable Unavailable Sharmila Azar DO Primary Care Provider [phone] Inactive/Transferred Primary Care Provider Unava ilable Encounter Details Date Type Department Care Team (Late st Contact Info) Description 10/26/2022 Abstract [place] [facility] MED[facility] [address] [place] [address] Shilpa Miller CNP [address] [place] [address] Social History Tobacco Use Types Packs/Day Years [...] Procedure Name Priority Date/Time Associated Diagnosis Comments HEMOGLOBIN A1C Routine 06/28/2022 LIPID PANEL, STANDARD Routine 06/06/2022 HM MAMMOGRAPHY Routine 12/25/2021 documented in this encounter Results * (ABNORMAL) Hemoglobin A1c (06/28/2022) Pathologist [facility] Hemoglobin A1C 7.6(A) 4.0 - 6.0 % Blood Venous blood specimen / Unknown Historical Provider LAB BLOOD ORDERABLES Layla l Result * Lipid Panel, Standard (06/06/2022) Pathologist [facility] Triglycerides 98 40 - 160 mg/dL Cholesterol 138 0 - 200 mg/dL HDL Cholesterol 60 35 - 70 mg/dL LDL Cholesterol 58 mg/dL Blood Venous blood specimen / Unknown Historical Provider LAB BLOOD ORDERABLES Layla l Result * Mammography (12/25/2021) Pathologist [facility] Mammogram BI RADS: 2 Benign Anatomical Region Laterality Modality Other [facility] Provider HEALTH MAINTENANCE Final Result documented in this encounter Visit Diagnoses Not on filedocumented in this encounter Care Teams Ecology Professor Relationship Specialty Start Date End Date Shilpa Miller CNP 73 [place] [address] PCP - General Family Medicine 10/16/22 10/24/23 Francheska Tucker FNP 73 [facility] [place] [address] PCP - General Family Medicine 10/25/23 11/01/24 Sharmila Azar DO 73 [place] [address] PCP - General Family Medicine 11/02/24 06/17/25 Inactive/Transferred PCP - General 06/18/25 06/18/25 Lei Thacker Health Navigator 09/17/24 documented as of this encounter
--- OUTSIDE RECORDS SUMMARY | 2025-07-22 12:13 | XMS_ITS | Encounter Summary ---
Author Organization [employer] Address [address] [place] [address] 7t [place] [address] Care Team Providers Care Director Prospect Name Role Phone Francheska Tucker MADELEINE Primary Care Provider [phone] Lei Thacker Unavailable Unavailable Sharmila Azar DO Primary Care Provider [phone] Inactive/Transferred Primary Care Provider Unava ilable Reason for Visit * Reason Comments Med Change Request Encounter Details Date Type Department Care Team (Late st Contact Info) Description 01/16/2024 Oneyda Stewart [facility] MED[facility] [address] [place] [address] Amira Singh FNP Social History Tobacco Use Types Packs/Day Years [...] Encounter - Luiza Mora CMA - 01/17/2024 8:50 AM EDT Yellow RX filled out yesterday and faxed to [employer] documented in this encounter Plan of Treatment Not on file documented as of this encounter Visit Diagnoses Not on filedocumented in this encounter Care Teams Director Prospect Relationship Specialty Start Date End Date Francheska Tucker FNP [address] [place] [address] PCP - General Family Medicine 10/25/23 11/01/24 Sharmila Azar DO 73 [place] [address] PCP - General Family Medicine 11/02/24 06/17/25 Inactive/Transferred PCP - General 06/18/25 06/18/25 Lei Thacker Health Navigator 09/17/24 documented as of this encounter
--- OUTSIDE RECORDS SUMMARY | 2025-07-22 12:13 | XMS_ITS | Encounter Summary ---
Author Organization [employer] Address [address] [place] [address] 7 [place] [address] Care Team Providers Care Railroad Dispatcher Name Role Phone Shilpa Miller CNP Primary Care Provider [phone] Francheska Tucker Primary Care Provider [phone] Lei Thacker Unavailable Unavailable Sharmila Azar DO Primary Care Provider [phone] Inactive/Transferred Primary Care Provider Unava ilable Encounter Details Date Type Department Care Team (Late st Contact Info) Description 10/27/2022 Abstract Pat [facility] MEDICAL [address] [place] [address] Shilpa Miller CNP 73 [facility] [place] [address] Social History Tobacco Use Types Packs/Day Years [...] on filedocumented in this encounter Care Teams Railroad Dispatcher Relationship Specialty Start Date End Date Shilpa Miller CNP [address] [place] [address] PCP - General Family Medicine 10/16/22 10/24/23 Francheska Tucker FNP [address] [place] [address] PCP - General Family Medicine 10/25/23 11/01/24 Shramila Azar DO 73 [facility] [place] [address] PCP - General Family Medicine 11/02/24 06/17/25 Inactive/Transferred PCP - General 06/18/25 06/18/25 Lei Thacker Health Navigator 09/17/24 documented as of this encounter
== END 2025-07-22 11:44 | disposition home or self-care (01) ==
LOC: HO.HMCFM 10:04
PROVIDERS: PCP Nurse Practitioner Family; Visit Provider Nurse Practitioner Family
DX: E11.42 Type 2 diabetes mellitus with diabetic polyneuropathy (principal); E06.3 Autoimmune thyroiditis; R01.1 Cardiac murmur, unspecified; Z68.44 Body mass index [BMI] 60.0-69.9, adult; Z97.8 Presence of other specified devices; F41.1 Generalized anxiety disorder; F33.1 Major depressive disorder, recurrent, moderate; E11.69 Type 2 diabetes mellitus with other specified complication; F25.0 Schizoaffective disorder, bipolar type; Z76.89 Persons encountering health services in other specified circumstances; I89.0 Lymphedema, not elsewhere classified; E78.5 Hyperlipidemia, unspecified; I10 Essential (primary) hypertension; G43.009 Migraine without aura, not intractable, without status migrainosus; J45.20 Mild intermittent asthma, uncomplicated; Z88.9 Allergy status to unspecified drugs, medicaments and biological substances; N39.46 Mixed incontinence; G47.33 Obstructive sleep apnea (adult) (pediatric); E55.9 Vitamin D deficiency, unspecified; Z71.89 Other specified counseling

== ENCOUNTER → 2025-07-22 10:03 | Outpatient (BNVA) | payer MEDICARE, MEDICAID, SELFPAY | PROVIDERS: PCP Nurse Practitioner Family; Visit Provider Nurse Practitioner Family | DX: M17.0 Bilateral primary osteoarthritis of knee (principal); G47.33 Obstructive sleep apnea (adult) (pediatric); E66.9 Obesity, unspecified; R01.1 Cardiac murmur, unspecified; E06.3 Autoimmune thyroiditis; Z97.8 Presence of other specified devices; E11.42 Type 2 diabetes mellitus with diabetic polyneuropathy; F41.1 Generalized anxiety disorder; F33.1 Major depressive disorder, recurrent, moderate; F25.0 Schizoaffective disorder, bipolar type; I89.0 Lymphedema, not elsewhere classified; E11.69 Type 2 diabetes mellitus with other specified complication; E78.5 Hyperlipidemia, unspecified; I10 Essential (primary) hypertension; G43.009 Migraine without aura, not intractable, without status migrainosus; J45.20 Mild intermittent asthma, uncomplicated; N39.46 Mixed incontinence; E55.9 Vitamin D deficiency, unspecified; R79.89 Other specified abnormal findings of blood chemistry; D72.829 Elevated white blood cell count, unspecified; Z71.89 Other specified counseling; Z88.9 Allergy status to unspecified drugs, medicaments and biological substances; Z99.89 Dependence on other enabling machines and devices; Z76.89 Persons encountering health services in other specified circumstances; Z68.44 Body mass index [BMI] 60.0-69.9, adult | CPT/HCPCS: 96127; 99202 ==

== ENCOUNTER 2025-07-27 09:14 | Outpatient (REF) | payer MEDICARE, MEDICAID, SELFPAY ==
[2025-07-27 10:32] LABS: Appearance Urine Clear; Glucose Urine UA Negative (Negative); PH 7.0 (5.0-9.0); Specific Gravity - Urine <= 1.005 (1.005-1.025); UMIC TRIGGER UACC YES
--- OUTSIDE RECORDS SUMMARY | 2025-07-27 10:52 | XMS_ITS | Encounter Summary ---
Author Organization [employer] Address 75 [facility] 7t [place] [address] Care Team Providers Care Metal Worker Name Role Phone Francheska Tucker MADELEINE Primary Care Provider [phone] Lei Thacker Unavailable Unavailable Sharmila Azar DO Primary Care Provider [phone] Inactive/Transferred Primary Care Provider Unava ilable Encounter Details Date Type Department Care Team (Late st Contact Info) Description 12/19/2023 Orders Only [facility] MEDICAL [address] [place] [address] Provider, MD Sharad Social History Tobacco Use [...] on filedocumented in this encounter Care Teams Metal Worker Relationship Specialty Start Date End Date Francheska Tucker FNP 73 [place] [address] PCP - General Family Medicine 10/25/23 11/01/24 Sharmila Azar DO 73 [place] [address] PCP - General Family Medicine 11/02/24 06/17/25 Inactive/Transferred PCP - General 06/18/25 06/18/25 Lei Thacker Health Navigator 09/17/24 documented as of this encounter
--- OUTSIDE RECORDS SUMMARY | 2025-07-27 10:52 | XMS_ITS | Encounter Summary ---
Author Organization [employer] Address [address] [place] [address] 7t [place] [address] Care Team Providers Care Schedule Analyst Name Role Phone Francheska Tucker MADELEINE Primary Care Provider [phone] Lei Thacker Unavailable Unavailable Sharmila Azar DO Primary Care Provider [phone] Inactive/Transferred Primary Care Provider Unava ilable Reason for Visit * Reason Comments Med Change Request Encounter Details Date Type Department Care Team (Late st Contact Info) Description 05/12/2024 Oneyda Stewart [facility] MED[facility] [address] [place] [address] Shilpa Miller CNP [address] [place] [address] Psychophysiological insomnia Social History Tobacco Use Types [...] Notes * Telephone Encounter - Branden Mcclure, WOOD DOWEL MACHINE OPERATOR - 05/12/2024 9:56 AM EDT Pt tried [...] documented as of this encounter Care Teams Schedule Analyst Relationship Specialty Start Date End Date Francheska Tucker FNP 73 [place] [address] PCP - General Family Medicine 10/25/23 11/01/24 Sharmila Azar DO 73 [place] [address] PCP - General Family Medicine 11/02/24 06/17/25 Inactive/Transferred PCP - General 06/18/25 06/18/25 Lei Thacker Health Navigator 09/17/24 documented as of this encounter
--- OUTSIDE RECORDS SUMMARY | 2025-07-27 10:52 | XMS_ITS | Encounter Summary ---
Author Organization [id number] Address [address] [place] [address] 7 [place] [address] Care Team Providers Care Medical Physics Teacher Name Role Phone Lei Thacker Unavailable Unavailable Sharmila Azar DO Primary Care Provider Inactive/Transferred Primary Care Provider Unava ilable Reason for Visit * Reason Comments Med Refill Encounter Details Date Type Department Care Team (Late st Contact Info) Description 03/02/2025 Refill Pat [facility] [address] [place] [address] Sharmila Azar DO [address] [place] [address] Anxiety; PTSD (post-traumatic stress disorder) Social History [...] documented as of this encounter Care Teams Medical Physics Teacher Relationship Specialty Start Date End Date Sharmila Azar DO [address] [place] [address] PCP - General Family Medicine 11/02/24 06/17/25 Inactive/Transferred PCP - General 06/18/25 06/18/25 Lei Thacker Health Navigator 09/17/24 documented as of this encounter
--- OUTSIDE RECORDS SUMMARY | 2025-07-27 10:52 | XMS_ITS | Encounter Summary ---
Author Organization [employer] Address [address] [place] [address] 7t [place] [address] Care Team Providers Care Decker Operator Name Role Phone Francheska Tucker MADELEINE Primary Care Provider [phone] Lei Thacker Unavailable Unavailable Sharmila Azar DO Primary Care Provider [phone] Inactive/Transferred Primary Care Provider Unava ilable Reason for Visit * Reason Onset Date Comments Med Refill 05/21/2024 Encounter Details Date Type Department Care Team (Late st Contact Info) Description 05/21/2024 Refill Pat [facility] MED[facility] [address] [place] [address] Shilpa Miller, MARIA C [address] [place] [address] Type 2 diabetes mellitus with diabetic polyneuropathy, with long-term current use of insulin ([facility]) Social History Tobacco Use Types Packs/Day Years [...] VM I am going to send a [employer] message. documented in this encounter Plan of Treatment Not on file documented as of this encounter Visit Diagnoses Diagnosis Type 2 diabetes mellitus with diabetic polyneuropathy, with long-term current use of insulin ([facility]) documented in this encounter Additional Health Concerns Assessment Noted Time PHQ-9 Depression Total Score: 20 024 7:38 AM EDT documented as of this encounter Care Teams Decker Operator Relationship Specialty Start Date End Date Francheska Tucker FNP 73 [facility] [place] [address] PCP - General Family Medicine 10/25/23 11/01/24 Sharmila Azar DO 73 [facility] [place] [address] PCP - General Family Medicine 11/02/24 06/17/25 Inactive/Transferred PCP - General 06/18/25 06/18/25 Lei Thacker Health Navigator 09/17/24 documented as of this encounter
--- OUTSIDE RECORDS SUMMARY | 2025-07-27 10:52 | XMS_ITS | Encounter Summary ---
Author Organization [employer] Address 75 [facility] 7t [place] [address] Care Team Providers Care Finisher Polisher Name Role Phone Francheska Tucker Primary Care Provider [phone] Lei Thacker Unavailable Unavailable Sharmila Azar DO Primary Care Provider [phone] Inactive/Transferred Primary Care Provider Unava ilable Reason for Visit * Reason Comments Med Change Request Encounter Details Date Type Department Care Team (Late st Contact Info) Description 2024 Oneyda Stewart [facility] MEDICAL [address] [place] [address] Francheska Tucker FNP [address] [place] [address] Type 2 diabetes mellitus with diabetic polyneuropathy, with long-term current use of insulin ([facility]) Social History Tobacco Use Types [...] with long-term current use of insulin ([facility]) documented in this encounter Additional Health Concerns Assessment Noted Time PHQ-9 Depression Total Score: 20 024 7:38 AM EDT documented as of this encounter Care Teams Finisher Polisher Relationship Specialty Start Date End Date Francheska Tucker FNP 73 [place] [address] PCP - General Family Medicine 10/25/23 11/01/24 Sharmila Azar DO 73 [place] [address] PCP - General Family Medicine 11/02/24 06/17/25 Inactive/Transferred PCP - General 06/18/25 06/18/25 Lei Thacker Health Navigator 09/17/24 documented as of this encounter
--- OUTSIDE RECORDS SUMMARY | 2025-07-27 10:52 | XMS_ITS | Encounter Summary ---
Author Organization [employer] Address [address] [place] [address] 7t [place] [address] Care Team Providers Care Piano Builder Name Role Phone Francheska Tucker MADELEINE Primary Care Provider [phone] Lei Thacker Unavailable Unavailable Sharmila Azar DO Primary Care Provider [phone] Inactive/Transferred Primary Care Provider Unava ilable Reason for Visit * Reason Comments Med Change Request Encounter Details Date Type Department Care Team (Late st Contact Info) Description 01/14/2024 Oneyda Stewart [facility] [address] [place] [address] Shilpa Miller, DISTRICT CAPTAIN [address] [place] [address] Type 2 diabetes mellitus with diabetic polyneuropathy, with long-term current use of insulin ([facility]) Social History Tobacco Use Types Packs/Day [...] was filled out yesterday and faxed to [employer] there was another TE on this. documented in this encounter Plan of Treatment Not on file documented as of this encounter Visit Diagnoses Diagnosis Type 2 diabetes mellitus with diabetic polyneuropathy, with long-term current use of insulin ([facility]) documented in this encounter Care Teams Piano Builder Relationship Specialty Start Date End Date Francheska Tucker FNP [address] [place] [address] PCP - General Family Medicine 10/25/23 11/01/24 Sharmila Azar DO [address] [place] [address] PCP - General Family Medicine 11/02/24 06/17/25 Inactive/Transferred PCP - General 06/18/25 06/18/25 Lei Thacker Health Navigator 09/17/24 documented as of this encounter
--- OUTSIDE RECORDS SUMMARY | 2025-07-27 10:52 | XMS_ITS | Encounter Summary ---
Author Organization [employer] Address [address] [place] [address] 7 [place] [address] Care Team Providers Care Magazine Feeder Name Role Phone Lei Thacker Unavailable Unavailable Sharmila Azar DO Primary Care Provider [phone] Inactive/Transferred Primary Care Provider Unava ilable Reason for Visit * Reason Comments Med Change Request Encounter Details Date Type Department Care Team (Late st Contact Info) Description 01/26/2025 Oneyda Stewart [facility] [address] [place] [address] Sharmila Azar DO [address] [place] [address] Type 2 diabetes mellitus with diabetic polyneuropathy, with long-term current use of insulin ([facility]) Social History Tobacco Use Types [...] polyneuropathy, with long-term current use of insulin ([facility]) documented in this encounter Additional Health Concerns Assessment Noted Time PHQ-9 Depression Total Score: 10 024 7:39 AM EST documented as of this encounter Care Teams Magazine Feeder Relationship Specialty Start Date End Date Sharmila Azar [address] [place] [address] PCP - General Family Medicine 11/02/24 06/17/25 Inactive/Transferred PCP - General 06/18/25 06/18/25 Lei Thacker Health Navigator 09/17/24 documented as of this encounter
--- OUTSIDE RECORDS SUMMARY | 2025-07-27 10:52 | XMS_ITS | Encounter Summary ---
Author Organization [employer] Address 75 [facility] 7t [place] [address] Care Team Providers Care Rate Reviewer Name Role Phone Lei Thacker Unavailable Unavailable Sharmila Azar DO Primary Care Provider [phone] Inactive/Transferred Primary Care Provider Unava ilable Reason for Visit * Reason Onset Date Comments Med Refill 02/09/2025 Encounter Details Date Type Department Care Team (Late st Contact Info) Description 02/09/2025 Refill Pat [facility] [address] [place] [address] Francheska Tucker FNP [address] [place] [address] Type 2 diabetes mellitus with diabetic polyneuropathy [...] documented as of this encounter Care Teams Rate Reviewer Relationship Specialty Start Date End Date Sharmila Azar DO 73 [place] [address] PCP - General Family Medicine 11/02/24 06/17/25 Inactive/Transferred PCP - General 06/18/25 06/18/25 Lei Thacker Health Navigator 09/17/24 documented as of this encounter
--- OUTSIDE RECORDS SUMMARY | 2025-07-27 10:52 | XMS_ITS | Encounter Summary ---
Author Organization [employer] Address [address] [place] [address] 7 [place] [address] Care Team Providers Care Carpet Jack Name Role Phone Shilpa Miller CNP Primary Care Provider [phone] Francheska Tucker Primary Care Provider [phone] Lei Thacker Unavailable Unavailable Sharmila Azar DO Primary Care Provider [phone] Inactive/Transferred Primary Care Provider Unava ilable Reason for Visit * Reason Comments Med Refill Encounter Details Date Type Department Care Team (Late st Contact Info) Description 07/25/2023 Refill Pat [facility] [address] [place] [address] Shilpa Miller CNP [address] [place] [address] Hypothyroidism, unspecified Social History Tobacco Use Types [...] unspecified documented in this encounter Care Teams Carpet Jack Relationship Specialty Start Date End Date Shilpa Miller CNP [address] [place] [address] PCP - General Family Medicine 10/16/22 10/24/23 Francheska Tucker FNP [address] [place] [address] PCP - General Family Medicine 10/25/23 11/01/24 Sharmila Azar DO 73 [place] [address] PCP - General Family Medicine 11/02/24 06/17/25 Inactive/Transferred PCP - General 06/18/25 06/18/25 Lei Thacker Health Navigator 09/17/24 documented as of this encounter
--- OUTSIDE RECORDS SUMMARY | 2025-07-27 10:52 | XMS_ITS | Encounter Summary ---
Author Organization [employer] Address [address] [place] [address] 7t [place] [address] Care Team Providers Care Picture Frames Inspector Name Role Phone Shilpa Miller CNP Primary Care Provider [phone] Francheska Tucker Primary Care Provider [phone] Lei Thacker Unavailable Unavailable Sharmila zAar DO Primary Care Provider [phone] Inactive/Transferred Primary Care Provider Unava ilable Encounter Details Date Type Department Care Team (Late st Contact Info) Description 01/31/2023 Abstract Pat [facility] [address] [place] [address] Shilpa Miller CNP [address] [place] [address] Social History Tobacco Use Types Packs/Day Years [...] on filedocumented in this encounter Care Teams Picture Frames Inspector Relationship Specialty Start Date End Date Shilpa Miller CNP [address] [place] [address] PCP - General Family Medicine 10/16/22 10/24/23 Francheska Tucker FNP [address] [place] [address] PCP - General Family Medicine 10/25/23 11/01/24 Sharmila Azar DO [address] [place] [address] PCP - General Family Medicine 11/02/24 06/17/25 Inactive/Transferred PCP - General 06/18/25 06/18/25 Lei Thacker Health Navigator 09/17/24 documented as of this encounter
--- OUTSIDE RECORDS SUMMARY | 2025-07-27 10:52 | XMS_ITS | Encounter Summary ---
Author Organization [employer] Address 75 [facility] 7t [place] [address] Care Team Providers Care Urban Planning Professor Name Role Phone Francheska Tucker Primary Care Provider Lei Thacker Unavailable Unavailable Sharmila Azar DO Primary Care Provider [phone] Inactive/Transferred Primary Care Provider Unava ilable Reason for Visit * Reason Comments Med Change Request Encounter Details Date Type Department Care Team (Late st Contact Info) Description 05/26/2024 Oneyda Stewart [facility] [address] [place] [address] Francheska Tucker FNP [address] [place] [address] Type 2 diabetes mellitus with diabetic polyneuropathy, with long-term current use of insulin ([facility]) Social History Tobacco Use Types [...] polyneuropathy, with long-term current use of insulin ([facility]) documented in this encounter Additional Health Concerns Assessment Noted Time PHQ-9 Depression Total Score: 20 024 7:38 AM EDT documented as of this encounter Care Teams Urban Planning Professor Relationship Specialty Start Date End Date Francheska Tucker FNP 73 [place] [address] PCP - General Family Medicine 10/25/23 11/01/24 Sharmila Azar DO 73 [place] [address] PCP - General Family Medicine 11/02/24 06/17/25 Inactive/Transferred PCP - General 06/18/25 06/18/25 Lei Thacker Health Navigator 09/17/24 documented as of this encounter
--- OUTSIDE RECORDS SUMMARY | 2025-07-27 10:52 | XMS_ITS | Encounter Summary ---
Author Organization [employer] Address [address] [place] [address] 7t [place] [address] Care Team Providers Care Assistant Health Educator Name Role Phone Francheska Tucker Primary Care Provider Lei Thacker Unavailable Unavailable Sharmila Azar DO Primary Care Provider [phone] Inactive/Transferred Primary Care Provider Unava ilable Encounter Details Date Type Department Care Team (Late st Contact Info) Description 07/04/2024 Orders Only [facility] [address] [place] [address] Francheska Tucker FNP [address] [place] [address] Social History Tobacco Use Types Packs/Day Years [...] documented as of this encounter Care Teams Assistant Health Educator Relationship Specialty Start Date End Date Francheska Tucker FNP [address] [place] [address] PCP - General Family Medicine 10/25/23 11/01/24 Sharmila Azar DO 73 [facility] [place] [address] PCP - General Family Medicine 11/02/24 06/17/25 Inactive/Transferred PCP - General 06/18/25 06/18/25 Lei Thacker Health Navigator 09/17/24 documented as of this encounter
--- OUTSIDE RECORDS SUMMARY | 2025-07-27 10:52 | XMS_ITS | Encounter Summary ---
Author Organization [employer] Address [address] [place] [address] 7t [place] [address] Care Team Providers Care Bottling Equipment Sales Representative Name Role Phone Lei Thacker Unavailable Unavailable Sharmila Azar DO Primary Care Provider [phone] Inactive/Transferred Primary Care Provider Unava ilable Reason for Visit * Reason Comments Med Change Request Encounter Details Date Type Department Care Team (Late st Contact Info) Description 12/25/2024 Oneyda Stewart [facility] [address] [place] [address] Sharmila Azar DO [address] [place] [address] Mild intermittent asthma without complication Social History [...] documented as of this encounter Care Teams Bottling Equipment Sales Representative Relationship Specialty Start Date End Date Sharmila Azar DO 73 [place] [address] PCP - General Family Medicine 11/02/24 06/17/25 Inactive/Transferred PCP - General 06/18/25 06/18/25 Lei Thacker Health Navigator 09/17/24 documented as of this encounter
--- OUTSIDE RECORDS SUMMARY | 2025-07-27 10:52 | XMS_ITS | Encounter Summary ---
Author Organization [employer] Address [address] [place] [address] 7t [place] [address] Care Team Providers Care Telecommunication Engineer Name Role Phone Lei Thacker Unavailable Unavailable Encounter Details Date Type Department Care Team (Late st Contact Info) Description 07/17/2025 Orders Only Pat [facility] [address] [place] [address] Sharmila Azar DO [address] [place] [address] Arthralgia of both knees (Primary Dx); Lymphedema; Abnormal CBC; ESR raised Social History Tobacco Use Types Packs/Day Years [...] the past 12 months, has t he T[employer], gas, oil or water company threatened to [...] Type Priority Associated Diagnoses Orde r Schedule Anti-neutrophilic cytoplasmic antibody Lab Routine Abnormal CBC ESR raised Expected: 07/23/2025 (Approximate), Expires: 07/23/2026 Blood culture [id number] Microbiology Routine Abnormal CBC ESR raised Expected: 07/23/2025, Expires: 07/23/2026 documented as of this encounter Procedures Procedure Name Priority Date/Time Associated Diagnosis Comments CBC WITH AUTO DIFFERENTIAL Routine 07/20/2025 9:20 AM EDT Arthralgia of both knees Lymphedema COMPREHENSIVE METABOLIC PANEL Routine 07/20/2025 9:20 AM EDT Arthralgia of both knees Lymphedema documented in this encounter Results * (ABNORMAL) Comprehensive Metabolic Panel [[id number]] (07/20/2025 9:20 AM EDT) Glucose 143(H) 70 [...] Narrative Resulting Agency Comment Performed at: - [address] [id number] Slate Handler: Megan Curry MD, Phone: [phone] us Sharmila Azar DO LAB BLOOD ORDERABLES [...] Agency Comment Performed at: 01 - [facility] [address] [id number] Slate Handler: Megan Curry MD, Phone: [phone] us Sharmila Azar DO LAB BLOOD ORDERABLES Final Res ult [facility] 1 documented in this encounter Visit Diagnoses Diagnosis Arthralgia of both knees- Primary Lymphedema Other noninfectious lymphedema Abnormal CBC Other abnormal blood chemistry ESR raised Elevated sedimentation rate documented in this encounter Additional Health Concerns Assessment Noted Time PHQ-9 Depression Total Score: 6 06/22/20 25 2:22 PM EDT documented as of this encounter Care Teams Telecommunication Engineer Relationship Specialty Start Date End Date Lei Thacker Health Navigator 09/17/24 documented as of this encounter
--- OUTSIDE RECORDS SUMMARY | 2025-07-27 10:52 | XMS_ITS | Encounter Summary ---
Author Organization [employer] Address [address] [place] [address] 7t [place] [address] Care Team Providers Care Flight Control Specialist Name Role Phone Lei Thacker Unavailable Unavailable Sharmila Azar DO Primary Care Provider [phone] Inactive/Transferred Primary Care Provider Unava ilable Reason for Visit * Reason Onset Date Comments Med Refill 01/31/2025 Encounter Details Date Type Department Care Team (Late st Contact Info) Description 01/31/2025 Refill Pat [facility] [address] [place] [address] Francheska Tucker FNP [address] [place] [address] Essential (primary) hypertension Social History Tobacco Use [...] documented as of this encounter Care Teams Flight Control Specialist Relationship Specialty Start Date End Date Sharmila Azar DO 73 [place] [address] PCP - General Family Medicine 11/02/24 06/17/25 Inactive/Transferred PCP - General 06/18/25 06/18/25 Lei Thacker Health Navigator 09/17/24 documented as of this encounter
--- OUTSIDE RECORDS SUMMARY | 2025-07-27 10:52 | XMS_ITS | Encounter Summary ---
Author Organization [employer] Address 75 [facility] 7t [place] [address] Care Team Providers Care Home [employer]ot Rep Name Role Phone Francheska Tucker Primary Care Provider Lei Thacker Unavailable Unavailable Sharmila Azar DO Primary Care Provider [phone] Inactive/Transferred Primary Care Provider Unava ilable Encounter Details Date Type Department Care Team (Late st Contact Info) Description 07/25/2024 Orders Only [facility] [address] [place] [address] Francheska Tucker FNP [address] [place] [address] Social History Tobacco Use Types Packs/Day Years [...] Blood Venous blood specimen / Unknown Result [facility] Francheska SALVADOR LAB BLOOD ORDERABLES Final [...] documented as of this encounter Care Teams Home Depot Rep Relationship Specialty Start Date End Date Francheska Tucker FNP 73 [place] [address] PCP - General Family Medicine 10/25/23 11/01/24 Sharmila Azar DO 73 [place] [address] PCP - General Family Medicine 11/02/24 06/17/25 Inactive/Transferred PCP - General 06/18/25 06/18/25 Lei Thacker Health Navigator 09/17/24 documented as of this encounter
--- OUTSIDE RECORDS SUMMARY | 2025-07-27 10:52 | XMS_ITS | Encounter Summary ---
Author Organization [employer] Address 75 [facility] 7t [place] [address] Care Team Providers Care Manager Gas Name Role Phone Francheska Tucker MADELEINE Primary Care Provider [phone] Lei Thacker Unavailable Unavailable Sharmila Azar DO Primary Care Provider [phone] Inactive/Transferred Primary Care Provider Unava ilable Encounter Details Date Type Department Care Team (Late st Contact Info) Description 06/25/2024 Orders Only [facility] MEDICAL [address] [place] [address] Provider, MD Sharad Social History Tobacco Use [...] the past 12 months, has t he [employer], gas, oil or water [employer] threatened to shut off services in your [...] as of this encounter Care Teams Manager Gas Relationship Specialty Start Date End Date Francheska Tucker FNP 73 [place] [address] PCP - General Family Medicine 10/25/23 11/01/24 Sharmila Azar DO 73 [place] [address] PCP - General Family Medicine 11/02/24 06/17/25 Inactive/Transferred PCP - General 06/18/25 06/18/25 Lei Thacker Health Navigator 09/17/24 documented as of this encounter
--- OUTSIDE RECORDS SUMMARY | 2025-07-27 10:52 | XMS_ITS | Encounter Summary ---
Author Organization [employer] Address [address] [place] [address] 7t [place] [address] Care Team Providers Care Executive Manager Name Role Phone Lei Thacker Unavailable Unavailable Sharmila Azar DO Primary Care Provider [phone] Inactive/Transferred Primary Care Provider Unava ilable Reason for Visit * Reason Comments Med Change Request Encounter Details Date Type Department Care Team (Late st Contact Info) Description 03/06/2025 Oneyda Stewart [facility] [address] [place] [address] Sharmila Azar DO 73 [place] [address] Type 2 diabetes mellitus with diabetic polyneuropathy, with long-term current use of insulin ([facility]) Social History Tobacco Use [...] use of insulin ([facility]) documented in this encounter Additional Health Concerns Assessment Noted Time PHQ-9 Depression Total Score: 10 024 7:39 AM EST documented as of this encounter Care Teams Executive Manager Relationship Specialty Start Date End Date Sharmila Azar DO [address] [place] [address] PCP - General Family Medicine 11/02/24 06/17/25 Inactive/Transferred PCP - General 06/18/25 06/18/25 Lei Thacker Health Navigator 09/17/24 documented as of this encounter
--- OUTSIDE RECORDS SUMMARY | 2025-07-27 10:52 | XMS_ITS | Encounter Summary ---
Author Organization [employer] Address [address] [place] [address] 7t [place] [address] Care Team Providers Care Felt Hat Steamer Name Role Phone Francheska Tucker MADELEINE Primary Care Provider [phone] Lei Thacker Unavailable Unavailable Sharmila Azar DO Primary Care Provider [phone] Inactive/Transferred Primary Care Provider Unava ilable Reason for Visit * Reason Comments Med Change Request Encounter Details Date Type Department Care Team (Late st Contact Info) Description 05/12/2024 Oneyda Stewart [facility] [address] [place] [address] Shilpa Miller CNP [address] [place] [address] Psychophysiological insomnia Social History Tobacco Use Types [...] documented as of this encounter Care Teams Felt Hat Steamer Relationship Specialty Start Date End Date Francheska Tucker FNP [address] [place] [address] PCP - General Family Medicine 10/25/23 11/01/24 Sharmila Azar DO 73 [place] [address] PCP - General Family Medicine 11/02/24 06/17/25 Inactive/Transferred PCP - General 06/18/25 06/18/25 Lei Thacker Health Navigator 09/17/24 documented as of this encounter
--- OUTSIDE RECORDS SUMMARY | 2025-07-27 10:52 | XMS_ITS | Encounter Summary ---
Author Organization [employer] Address [address] [place] [address] 7 [place] [address] Care Team Providers Care Weaving Teacher Name Role Phone Lei Thacker Unavailable Unavailable Sharmila Azar DO Primary Care Provider [phone] Inactive/Transferred Primary Care Provider Unava ilable Reason for Visit * Reason Onset Date Comments Med Refill 02/18/2025 Encounter Details Date Type Department Care Team (Late st Contact Info) Description 02/18/2025 Refill [place] [facility] [address] [place] [address] Sharmila Azar DO [address] [place] [address] Anxiety; PTSD (post-traumatic stress disorder) Social History [...] documented as of this encounter Care Teams Weaving Teacher Relationship Specialty Start Date End Date Sharmila Azar DO [address] [place] [address] PCP - General Family Medicine 11/02/24 06/17/25 Inactive/Transferred PCP - General 06/18/25 06/18/25 Lei Thacker Health Navigator 09/17/24 documented as of this encounter
--- OUTSIDE RECORDS SUMMARY | 2025-07-27 10:53 | XMS_ITS | Encounter Summary ---
Author Organization [employer] Address [address] [place] [address] 7t [place] [address] Care Team Providers Care Business Information Analyst Name Role Phone Francheska Tucker MADELEINE Primary Care Provider [phone] Lei Thacker Unavailable Unavailable Sharmila Azar DO Primary Care Provider [phone] Inactive/Transferred Primary Care Provider Unava ilable Reason for Visit * Reason Comments Med Refill Encounter Details Date Type Department Care Team (Late st Contact Info) Description 03/21/2024 Refill Pat [facility] [address] [place] [address] Shilpa Miller, ACCOUNTING PRACTICE MANAGER [address] [place] [address] Type 2 diabetes mellitus with diabetic polyneuropathy, with long-term current use of insulin ([facility]) Social History Tobacco Use Types Packs/Day [...] television Nearly every day 03/24/2024 7:38 AM Shilpa De Leon CNP Moving or speaking so slowly that [...] polyneuropathy, with long-term current use of insulin ([facility]) documented in this encounter Additional Health Concerns Assessment Noted Time PHQ-9 Depression Total Score: 24 024 3:40 PM EDT documented as of this encounter Care Teams Business Information Analyst Relationship Specialty Start Date End Date Francheska Tucker FNP 73 [facility] [place] [address] PCP - General Family Medicine 10/25/23 11/01/24 Sharmila Azar DO 73 [facility] [place] [address] PCP - General Family Medicine 11/02/24 06/17/25 Inactive/Transferred PCP - General 06/18/25 06/18/25 Lei Thacker Health Navigator 09/17/24 documented as of this encounter
--- OUTSIDE RECORDS SUMMARY | 2025-07-27 10:53 | XMS_ITS | Encounter Summary ---
Author Organization [employer] Address 75 [facility] 7t [place] [address] Care Team Providers Care Oven Heater Helper Name Role Phone Lei Thacker Unavailable Unavailable Sharmila Azar DO Primary Care Provider [phone] Inactive/Transferred Primary Care Provider Unava ilable Encounter Details Date Type Department Care Team (Late st Contact Info) Description 11/21/2024 Orders Only [facility] [address] [place], [place] [id number] Provider, MD Sharad Social History Tobacco Use [...] documented as of this encounter Care Teams Oven Heater Helper Relationship Specialty Start Date End Date Sharmila Azar DO [address] [place] [address] PCP - General Family Medicine 11/02/24 06/17/25 Inactive/Transferred PCP - General 06/18/25 06/18/25 Lei Thacker Health Navigator 09/17/24 documented as of this encounter
--- OUTSIDE RECORDS SUMMARY | 2025-07-27 10:53 | XMS_ITS | Encounter Summary ---
Author Organization [facility] Address [address] [place] [address] 7 [place] [address] Care Team Providers Care Relaster Name Role Phone Lei Thacker Unavailable Unavailable Sharmila Azar DO Primary Care Provider [phone] Inactive/Transferred Primary Care Provider Unava ilable Reason for Visit * Reason Onset Date Comments Med Refill 12/11/2024 Encounter Details Date Type Department Care Team (Late st Contact Info) Description 12/11/2024 Refill [place] MED[facility] [address] [place] [address] Sharmila Azar DO [address] [place] [address] Anxiety; PTSD (post-traumatic stress disorder) Social History [...] documented as of this encounter Care Teams Relaster Relationship Specialty Start Date End Date Sharmila Azar DO [address] [place] [address] PCP - General Family Medicine 11/02/24 06/17/25 Inactive/Transferred PCP - General 06/18/25 06/18/25 Lei Thacker Health Navigator 09/17/24 documented as of this encounter
--- OUTSIDE RECORDS SUMMARY | 2025-07-27 10:53 | XMS_ITS | Encounter Summary ---
Author Organization [employer] Address [address] [place] [address] 7t h Floor [address] Care Team Providers Care Bridge Construction Inspector Name Role Phone Shilpa Miller MARIA C Primary Care Provider [phone] Francheska Tucker Primary Care Provider [phone] Lei Thacker Unavailable Unavailable Sharmila Azar DO Primary Care Provider [phone] Inactive/Transferred Primary Care Provider Unava ilable Encounter Details Date Type Department Care Team (Late st Contact Info) Description 12/01/2022 Orders Only [facility] MEDICAL [address] [place] [address] Avelina Fulton FNP Type 2 diabetes mellitus with diabetic polyneuropathy, with long-term current use of insulin ([facility]) (Primary Dx) Social History Tobacco Use Types [...] polyneuropathy, with long-term current use of insulin ([facility])- Primary documented in this encounter Care Teams Bridge Construction Inspector Relationship Specialty Start Date End Date Shilpa Miller CNP [address] [place] [address] PCP - General Family Medicine 10/16/22 10/24/23 Francheska Tucker FNP [address] [place] [address] PCP - General Family Medicine 10/25/23 11/01/24 Sharmila Azar DO [address] [place] [address] PCP - General Family Medicine 11/02/24 06/17/25 Inactive/Transferred PCP - General 06/18/25 06/18/25 Lei Thacker Health Navigator 09/17/24 documented as of this encounter
--- OUTSIDE RECORDS SUMMARY | 2025-07-27 10:53 | XMS_ITS | Clinical Summary ---
Author Organization [employer] Address [address] [place] [address] 7t [place] [address] Care Team Providers Care Mercury Washer Name Role Phone Lei Thacker Unavailable Unavailable Allergies Active Allergy Reactions Criticality Noted Date Comments Shiro Oil Hives,Itching,Rash,S hortness of breath,Swelling,Whee zing High 11/05/1980 Other Reaction(s): Anaphylaxis Amoxicillin 10/11/2022 Other reaction(s): Unknown Aspirin 10/11/2022 Other reaction(s): sensitivity Azithromycin Rash Low 10/11/2022 Black [place] Flavoring Agent (Non-Screening) Hives,Itching,Shortn ess of breath,Swelling,Whee [...] (PadSORBer Bed Morales Liners) miscIndications:Se angélica obesity ([facility]) 1 1e12 Vector Genomes/m2 4 times [...] polyneuropathy, with long-term current use of insulin ([facility]) Use as directed to test blood sugars 3 times a day 100 strip 12 12/09/19 25 Active levalbuterol (Xopenex) 45 MCG/ACT inhalerIndications :Mild intermittent asthma without complication INHALE 2 PUFFS EVERY 4 HOURS IF NEEDED FOR WHEEZING. 15 g 3 12/25/19 25 Active nystatin (Mycostatin) 566447 UNIT/GM powderIndications: Soo infection of flexural skin Apply topically 2 times daily. 60 g 1 01/01/20 25 026 Active losartan (Cozaar) 100 MG tabletIndications: Essential (primary) hypertension TAKE 1 TABLET (100 MG) BY MOUTH ONCE PER DAY. 90 tablet 3 02/03/20 25 Active Basaglar KwikPen 100 UNIT/ML penIndications:Typ e 2 diabetes mellitus with diabetic polyneuropathy, with long-term current use of insulin ([facility]) Inject 82 Units under the skin at [...] 03/09/20 25 Active Lancets (OneTouch Delica Plus [id number]) miscIndications:Ty pe 2 diabetes mellitus with diabetic polyneuropathy, with long-term current use of insulin ([facility]) CHECK GLUCOSE 3 TIMES A DAY [...] long-term current use of insulin ([facility]) Inject 8-10 Units under the skin [...] depression, PTSD. Engaged with Dom Carter at [facility] in [place] for medication. Sees Forrest at [facility] for therapy weekly on phone. Feeling symptoms are worsening. Starting to not want to leave the house and losing ghanshyam in doing things. Discussed options. Encouraged to discuss with therapist and prescriber. If feeling unheard by prescriber, encouraged to advocate for a different prescriber, but Ms. Dougherty is more comfortable getting a second opinion through [facility] provider at this time. Will refer [...] ARB and STATIN. EYE: Dr. Segura in [place] DENTIST: Has false teeth. FBS 60-100. Will [...] pain. Will refer to weight management. Completed STRAP SETTER paperwork for Ismael. Assessment & Plan (05/25/2023 [...] Encounters Date Type Department Care Team Description 07/22/2025 Results Follow-Up [address] [address] Sharmila Azar, DO TSH with Reflex to Free T4 [[id number]] 07/21/2025 Results Follow-Up [address] [address] Sharmila Azar DO CBC auto differential, Comprehensive Metabolic Panel [200003] 07/18/2025 Refill [facility] [address] [place] [address] Caitlin Francheska, KEELER POLYGRAPH OPERATOR 07/17/2025 Orders Only [address] [address] Sharmila Azar DO Arthralgia of both knees (Primary Dx); Lymphedema; Abnormal CBC; ESR raised 07/17/2025 Results Follow-Up [address] [address] Sharmila Azar DO Cortisol, Total, Magnesium [id number], Sed Rate by Modified Westergren, Additional followed-up results: 4 07/10/[address] [address] PcpPat Unassigned [employer] (Phone Number # / ) 07/08/[address] [address] Nancy Bridges LPN 07/02/[address] [address] PcpPatssnilay holder 06/22/2025 1:45 PM EDT Office Visit [address] [address] Sharmila Azar DO Primary osteoarthritis of both knees (Primary Dx); Nail dystrophy; Long toenail; Type 2 diabetes mellitus with diabetic polyneuropathy, with long-term current use of insulin (CMS/HCC); Muscle weakness of lower extremity; Diabetic polyneuropathy associated with type 2 diabetes mellitus (CMS/HCC); Acquired lymphedema; Transportation insecurity 06/20/2025 Travel 06/16/[address] [address] Que Pope CMA Pt-1 ride to [place] 06/14/2025 Travel 05/29/2025 Refill [facility] [address] [place] [address] Sharmila Azar DO Type 2 diabetes mellitus with diabetic polyneuropathy, with long-term current use of insulin ([facility]) 05/27/2025 Telephone [facility] [address] [place] [address] Sharmila Azar DO 05/23/2025 Telephone [facility] [address] [place] [address] Sharmila Azar DO PT-1 05/19/2025 Telephone [facility] [address] [place] [address] Sharmila Azar DO PT-1 05/17/2025 Refill [facility] [address] [place] [address] Sharmila Azar DO Type 2 diabetes mellitus with diabetic polyneuropathy ([facility]) 05/04/2025 Refill [facility] MEDICAL [address] [place] [address] Sharmila Azar DO Allergy, sequela 04/29/2025 Telephone [facility] [address] [place] [address] Sharmila Azar DO PT-1 Rides 04/28/[address] [address] Sharmila Azar DO from Last 3 Months [...] Mother vladimir hawk Hypertension Mother vladimir hawk MS Mother vladimir hawk after MS. Stroke Mother vladimir hawk Thyroid disease Mother [...] of 2) 2018 Lipid Panel 12/11/2024 12/11/2023, 0812/2021, 06/06/2022, Additional history exists Influenza Vaccine (#1) [...] AM EDT Arthralgia of both knees Lymphedema ACTH, PLASMA Routine 07/20/2025 9:20 AM EDT Low serum cortisol level RHEUMATOID ARTHRITIS (RA) PROFILE Routine 07/20/2025 9:19 [...] with long-term current use of insulin (CMS/HCC) SED RATE BY MODIFIED WESTERGREN Routine 07/16/2025 9:55 AM EDT Type 2 diabetes mellitus with diabetic polyneuropathy, with long-term current use of insulin (CMS/HCC) MAGNESIUM Routine 07/16/2025 9:55 AM EDT Type 2 diabetes mellitus with diabetic polyneuropathy, with long-term current use of insulin (CMS/HCC) CORTISOL, TOTAL Routine 07/16/2025 9:55 AM EDT Type 2 diabetes mellitus with diabetic polyneuropathy, with long-term current use of insulin (CMS/HCC) POCT GLYCOSYLATED HEMOGLOBIN (HGB A1C) Routine 06/22/2025 2:22 PM EDT Type 2 diabetes mellitus with diabetic polyneuropathy, with long-term current use of insulin (CMS/HCC) BI MAMMOGRAM SCREENING TOMOSYNTHESIS BILATERAL Routine 04/25/2025 1:53 PM EDT ALBUMIN/CREATININE RATIO, RANDOM URINE Routine 01/01/2025 12:00 AM EST Type 2 diabetes mellitus with diabetic polyneuropathy, with long-term current use of insulin ([facility]) DIABETES EYE EXAM Routine 05/28/2024 5:27 [...] Narrative Resulting Agency Comment Performed at: - [address] [id number] Boat Joiner: Megan Curry MD, Phone: [phone] [facility] BLOOD ORDERABLES Final Res ult Performing Organization Address [facility] de Phone Number [facility] 1 * ACTH, Plasma (07/20/2025 9:20 AM EDT) Pathologist [facility] ACTH, Plasma 23.4 7.2 - 63.3 pg/mL [facility] 1 Comment:ACTH reference inter oliver for samples collected between 7 and 10 AM. Blood Venous blood specimen / Unknown 07/20/2025 9:20 AM EDT 07/20/2025 Narrative Resulting Agency Comment Performed at: - [address] [id number] Boat Joiner: Megan Curry MD, Phone: [phone] [facility] LAB BLOOD ORDERABLES Final Res ult Performing Organization Address [facility] Co de Phone Number [facility] 1 * (ABNORMAL) Comprehensive Metabolic Panel [[id number]] (07/20/2025 9:20 AM EDT) Glucose 143(H) 70 [...] Resulting Agency Comment Performed at: 01 - [address] [id number] Boat Joiner: Megan Curry MD, Phone: [phone] Sharmila Azar DO LAB BLOOD ORDERABLES Final Res ult [facility] 1 * Rheumatoid Arthritis (RA) Profile [[id number]] (07/20/2025 9:19 AM EDT) Rheumatoid Factor (RF) <10.0 <14.0 IU/mL [facility] 1 Anti-CCP Ab, IgG/IgA 3 0 - 19 units [facility] 1 Comment: Negative <20 Weak positive 20 - 39 Moderate positive 40 - 59 Strong positive >59 Blood Venous blood specimen / Unknown 07/20/2025 9:19 AM EDT 07/20/2025 Narrative Resulting Agency Comment Performed at: - [address] [id number] Boat Joiner: Megan Curry MD, Phone: [phone] [facility] LAB BLOOD ORDERABLES Final Res ult Performing Organization Address [facility]/ZIP Co de Phone Number [facility] 1 * [...] Narrative Resulting Agency Comment Performed at: - [facility] [id number] Boat Joiner: Megan Curry MD, Phone: [phone] [facility] LAB BLOOD ORDERABLES Final Res ult Performing Organization Address [facility] Co de Phone Number [facility] 1 * (ABNORMAL) TSH with Reflex to Free T4 [[id number]] (07/20/2025 9:18 AM EDT) TSH 0.293(L) 0.450 - 4.500 uIU/mL [facility] 1 Blood Venous blood specimen / Unknown 07/20/2025 9:18 AM EDT 07/20/2025 Narrative Resulting Agency Comment Performed at: - [facility] [id number] Boat Joiner: Megan Curry MD, Phone: [phone] Francheska DEL RIOP LAB BLOOD ORDERABLES Final Resul t Performing Organization Address City/[facility]/ZIP Co de Phone Number [facility] 1 * (ABNORMAL) Sed Rate by Modified Westergren (07/16/2025 9:55 AM EDT) Sed Rate By Modified Westergren 84(H) 0 - 40 mm/hr [facility] 1 Blood Venous blood specimen / Unknown 07/16/2025 9:55 AM EDT 07/16/2025 Narrative Resulting Agency Comment Performed at: - [address] [id number] Boat Joiner: Megan Curry MD, Phone: [phone] [facility] LAB BLOOD ORDERABLES Final Res ult Performing Organization Address [facility] de Phone Number [facility] 1 * (ABNORMAL) C-reactive Protein (07/16/2025 9:55 AM EDT) C-Reactive Protein 23(H) 0 - 10 mg/L [facility] 1 Blood Venous blood specimen / Unknown 07/16/2025 9:55 AM EDT 07/16/2025 Narrative Resulting Agency Comment Performed at: [address] [id number] Boat Joiner: Megan Curry MD, Phone: [phone] [facility] LAB BLOOD ORDERABLES Final Res ult Performing Organization Address [facility] de Phone Number [facility] 1 * Magnesium [id number] (07/16/2025 9:55 AM EDT) Magnesium 1.9 1.6 - 2.3 mg/dL [facility] 1 Blood Venous blood specimen / Unknown 07/16/2025 9:55 AM EDT 07/16/2025 Narrative Resulting Agency Comment Performed at: [address] [place] [id number] Boat Joiner: Megan Curry MD, Phone: [phone] [facility] LAB BLOOD ORDERABLES Final Res ult [facility] * (ABNORMAL) Cortisol, Total (07/16/2025 9:55 AM EDT) Cortisol, Total 0.4(L) 6.2 - 19.4 ug/dL [facility] 1 Comment: Please Note: The reference interval and flagging for this test is for an AM collection. If this is a PM collection please use: Cortisol PM: 2.3-11.9 Blood Venous blood specimen / Unknown 07/16/2025 9:55 AM EDT 07/16/2025 Narrative Resulting Agency Comment Performed at: - [facility] [address] [id number] Boat Joiner: Megan Curry MD, Phone: [phone] [facility] LAB BLOOD ORDERABLES Final Res ult Performing Organization Address [facility] Co de Phone Number [facility] 1 * (ABNORMAL) POCT glycosylated hemoglobin (Hgb A1c) (06/22/2025 2:22 PM EDT) Hemoglobin A1C 7.1(A) 4.0 - 5.7 % Blood Capillary blood specimen / Unknown 06/22/2025 2:22 PM EDT [facility] POINT OF CARE TEST ENTER/EDIT ORDERABLES Final Result * BI Mammogram Screening Tomosynthesis Bilateral (04/25/2025 1:53 PM EDT) Anatomical Region Laterality Modality Breast Bilateral Mammography 04/25/2025 1:53 PM EDT Narrative 04/27/2025 4:28 PM EDT PROCEDURE: MM Digital Mammo Screening INDICATION: Screening for breast cancer. No known palpable abnormalities. COMPARISON: [facility] dating back to 01/14/2013. TECHNIQUE: Full-field [...] (Negative) Lay letter mailed to patient WSN: [id number] Ordering Physician: Sharmila Azar Dictated By: Kayleigh Hall MD, I Dictated Date/Time: 04/27/25 4:25 pm Reviewed By: Kayleigh Hall MD, I Signed By: Kayleigh Hall MD, I Signed Date/Time: 04/27/25 4:25 pm Transcribed By: CSB Sql Ssrs Developer Date/Time: 04/27/25 4:22 pm Birads: Procedure Note Donneriter, Image - 04/27/2025 PROCEDURE: MM Digital Mammo Screening INDICATION: Screening for breast cancer. No known palpableabnormalities. COMPARISON: [facility] dating back to 01/14/2013. TECHNIQUE: Full-field [...] (Negative) Lay letter mailed to patient WSN: [id number] Ordering Physician: Sharmila Azar Dictated By: Kayleigh Hall MD, I Dictated Date/Time: 04/27/25 4:25 pm Reviewed By: Kayleigh Hall MD, I Signed By: Kayleigh Hall MD, I Signed Date/Time: 04/27/25 4:25 pm Transcribed By: CSB Sql Ssrs Developer Date/Time: 04/27/25 4:22 pm Birads: Sharmila Azar DO IMG BI PROCEDURES Final Result * Albumin/Creatinine [...] - 01/04/2025 6:35 AM EST Performed at: 01 - [facility] [address] [id number] Boat Joiner: Megan Curry MD, Phone: [phone] Sharmila Azar DO LAB URINE ORDERABLES Final Res ult Performing Organization Address City/[facility]/ZIP Co de Phone Number [facility] 1 * Hm Diabetes Eye Exam (05/28/2024 5:27 PM EDT) Historical Provider HEALTH MAINTENANCE Final Result * Lipid panel (12/11/2023 12:51 PM EST) Cholesterol, Total 142 (<200) MG/DL [facility] Triglyceride (mg/dL) in Serum/Plasma 89 (<150) MG/DL [facility] HDL Cholesterol 67 (>39) MG/DL [facility] LDL Cholesterol, Calculated 57 (0-130) MG/DL [facility] Non HDL Chol. (LDL+VLDL) 75 (<160) MG/DL [facility] Comment: Testing performed or reported by [facility], a Service of [facility], [address] [place] [id number] Rojas Garza MD, Corduroy Brusher Operator IA# [id number] Blood Venous blood specimen / Unknown 12/11/2023 12:51 PM EST 12/11/2023 12:52 PM EST Francheska [facility] LAB BLOOD ORDERABLES Final Resul t Performing Organization Address [facility]/ZIP Co de Phone Number [address] [address] * Pap Smear (07/17/2023 12:00 AM EDT) Swab us Historical Provider MD LAB CYTOLOGY ORDERABLES F inal Result Performing Organization Address [facility] Co de Phone Number [facility] [address] [place] [address] * Hm Colonoscopy (12/30/2020) Colonoscopy repeat in 10 yeasr us Historical Provider MD HEALTH MAINTENANCE Final Result * -Hepatitis C Antibody Test (12/14/2020 7:58 AM EST) ANTI-HEPATITIS C NEGATIVE (NEG) [facility] Comment: Reference range: Negative This test was performed on the [facility] Order Entry Technician immunoassay system. 12/14/2020 7:58 AM EST Shilpa Miller PROCESSING MANAGER HISTORICAL/NON ORDERABLE LABS Final Result Performing Organization Address [facility] de Phone Number [facility] [address] * -HIV AB-AG 4TH GENERATION (12/14/2020 7:58 AM EST) RESULT 4TH GEN HIV AB-AG NEGATIVE (NEG) [facility] Comment: Negative for antibodies to HIV 1 and HIV 2 and P24 antigen. Reference range: Negative Additional note: Written patient authorization is required for each separate release of this test result. This test was performed on the [facility] Order Entry Technician immunoassay system. 12/14/2020 7:58 AM EST Shilpa Paul PROCESSING MANAGER LAB BLOOD ORDERABLES Final Re sult Performing Organization Address [facility] de Phone Number [facility] [address] from Last 3 Months or Most Recently Relevant to Health Maintenance Insurance MEDICARE [facility] Advance Directives Documents on File Type Date Recorded Patient Water Use Inspector Expl anation HealthCare Proxy 10/24/2023 12:48 PM HCP Care Teams Mercury Washer Relationship Specialty Start Date End Date Lei Thacker Health Navigator 09/17/24
--- OUTSIDE RECORDS SUMMARY | 2025-07-27 10:53 | XMS_ITS | Encounter Summary ---
Author Organization [employer] Address [address] [place] [address] 7 [place] [address] Care Team Providers Care Multi Share Program Coordinator Name Role Phone Shilpa Miller CNP Primary Care Provider [phone] Francheska Tucker Primary Care Provider [phone] Lei Thacker Unavailable Unavailable Sharmila Azar DO Primary Care Provider Inactive/Transferred Primary Care Provider Unava ilable Encounter Details Date Type Department Care Team (Late st Contact Info) Description 10/27/2022 Abstract Pat [facility] [address] [place] [address] Shilpa Miller CNP [address] [facility] [place] [address] Social History Tobacco Use Types Packs/Day Years [...] on filedocumented in this encounter Care Teams Multi Share Program Coordinator Relationship Specialty Start Date End Date Shilpa Miller CNP [address] [place] [address] PCP - General Family Medicine 10/16/22 10/24/23 Francheska Tucker FNP [address] [place] [address] PCP - General Family Medicine 10/25/23 11/01/24 Sharmila Azar DO [address] [facility] [place] [address] PCP - General Family Medicine 11/02/24 06/17/25 Inactive/Transferred PCP - General 06/18/25 06/18/25 Lei Thacker Health Navigator 09/17/24 documented as of this encounter
--- OUTSIDE RECORDS SUMMARY | 2025-07-27 10:53 | XMS_ITS | Encounter Summary ---
Author Organization [employer] Address [address] [place] [address] 7 [place] [address] Care Team Providers Care Waiter/Waitress Formal Name Role Phone Shilpa Miller CNP Primary Care Provider [phone] Francheska Tucker Primary Care Provider [phone] Lei Thacker Unavailable Unavailable Sharmila Azar DO Primary Care Provider [phone] Inactive/Transferred Primary Care Provider Unava ilable Encounter Details Date Type Department Care Team (Late st Contact Info) Description 11/30/2022 Abstract [place] [facility] [address] [place] [address] Shilpa Miller CNP [address] [place] [address] Social History Tobacco Use Types Packs/Day Years [...] on filedocumented in this encounter Care Teams Waiter/Waitress Formal Relationship Specialty Start Date End Date Shilpa Miller CNP [address] [place] [address] PCP - General Family Medicine 10/16/22 10/24/23 Francheska Tucker FNP [address] [place] [address] PCP - General Family Medicine 10/25/23 11/01/24 Sharmila Azar DO [address] [place] [address] PCP - General Family Medicine 11/02/24 06/17/25 Inactive/Transferred PCP - General 06/18/25 06/18/25 Lei Thacker Health Navigator 09/17/24 documented as of this encounter
--- OUTSIDE RECORDS SUMMARY | 2025-07-27 10:53 | XMS_ITS | Encounter Summary ---
Author Organization [employer] Address [address] [place] [address] 7t [place] [address] Care Team Providers Care Printing Plate Clerk Name Role Phone Francheska Tucker MADELEINE Primary Care Provider [phone] Lei Thacker Unavailable Unavailable Sharmila Azar DO Primary Care Provider Inactive/Transferred Primary Care Provider Unava ilable Reason for Visit * Reason Comments Med Change Request Encounter Details Date Type Department Care Team (Late st Contact Info) Description 01/16/2024 Oneyda Stewart [facility] [address] [place] [address] Amira Singh FNP Social History Tobacco Use [...] RX filled out yesterday and faxed to [facility] documented in this encounter Plan of Treatment Not on file documented as of this encounter Visit Diagnoses Not on filedocumented in this encounter Care Teams Printing Plate Clerk Relationship Specialty Start Date End Date Francheska Tucker FNP [address] [place] [address] PCP - General Family Medicine 10/25/23 11/01/24 Sharmila Azar DO [address] [place] [address] PCP - General Family Medicine 11/02/24 06/17/25 Inactive/Transferred PCP - General 06/18/25 06/18/25 Lei Thacker Health Navigator 09/17/24 documented as of this encounter
--- OUTSIDE RECORDS SUMMARY | 2025-07-27 10:53 | XMS_ITS | Encounter Summary ---
Author Organization [employer] Address [address] [place] [address] 7t [place] [address] Care Team Providers Care Corporate Travel Coordinator Name Role Phone Lei Thacker Unavailable Unavailable Encounter Details Date Type Department Care Team (Latest Contact Info) Description 07/21/2025 Results Follow-Up [facility] MEDICAL [address] [place] [address] Sharmila Azar DO 73 [place] [address] CBC auto differential, Comprehensive Metabolic Panel [359633] Social History Tobacco Use Types Packs/Day Years [...] r Schedule B Type Natriuretic Peptide (BNP) 356950 Lab Routine Low serum albumin Lymphedema Mild [...] documented as of this encounter Care Teams Corporate Travel Coordinator Relationship Specialty Start Date End Date Lei Thacker Health Navigator 09/17/24 documented as of this encounter
--- OUTSIDE RECORDS SUMMARY | 2025-07-27 10:53 | XMS_ITS | Patient Health Record ---
Author Organization [facility] Address [address] [facility] [address] [place] [address] Care Team Providers Care Sales And Marketing Executive Name Role Phone Laisha Castañeda Unavailable [phone] Reason For Referral No Information Medications Medication SIG (Take, Route, Frequency, Duration) Notes Start Date End Date Status Viibryd 40MG ORAL; Duration: -3 [facility] 04/28/2014 Active Vitamin D3 1000 IU ORAL daily; Duration: - [facility] 2013 Active Aspirin EC 81MG 1 ORAL daily; Durati on: - [facility] 04/28/2014 Active Nebulizer ORAL; Duration: - [facility] 04/28/2014 Active oxyCODONE HCl 5MG ORAL; Duration: - [facility] 04/28/2014 Active Pravastatin Sodium 20MG 1 ORAL daily; Du ration: - [facility] 04/28/2014 Active Singulair 10MG ORAL; Duration: - [facility] 04/28/2014 Active Combivent 103-18 2 INHALE four times daily; Duration: - [facility] 04/28/2014 Active KlonoPIN 0.5MG ORAL four times shannon y; Duration: [facility] 04/28/2014 Active Levothyroxine Sodium 125MCG 1 ORAL daily ; Duration: - [facility] 04/28/2014 Active metFORMIN HCl ER 500MG ORAL; Duration: - [facility] 04/28/20 14 Active Problems Problem Type SNOMED Code ICD Code Onset Dates Problem Status W/U Status Risk Notes Problem Hypothyroidism (57098838) Unspecified hypothyroidism (244.9) Active confirmed Problem Type II diabetes mellitus without complication (101907461) Diabetes mellitus without mention of complication, type II or unspecified type, not stated as uncontrolled (250.00) Active confirmed Problem Pure hypercholesterolemia (659451815) Pure hypercholesterolemia (272.0) Active confirmed Problem Morbid obesity (402318252) Morbid obesity (278.01) Active confirmed Problem Schizoaffective disorder (19120197) Schizoaffective disorder, unspecified (295.70) Active confirmed Problem Panic disorder with agoraphobia (47812662) Agoraphobia with panic disorder (300.21) Active confirmed Problem Obsessive-compulsive disorder (505197111) Obsessive-compulsive disorders (300.3) Active confirmed Problem Posttraumatic stress disorder (16459982) Posttraumatic stress disorder (309.81) Active confirmed Problem Attention deficit hyperactivity disorder (637525665) 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) Active confirmed Problem Migraine (disorder) (84060769) Migraine, unspecified without mention of intractable migraine without mention of status migrainosus (346.90) Active confirmed Problem Asthma (disorder) (050429268) Asthma, unspecified, unspecified status (493.90) Active confirmed Problem Sleep apnea (95589880) Unspecified sleep apnea (780.57) Active confirmed Problem Hypertension (37173157) Hypertension (401.9) Active confirmed Plan Of Treatment No Information Insurance Providers Payer Name Payer Address Payer Phone Subscriber Number Group Number Insured Name Patient Relationship to Insured Coverage Start Date Coverage End Date MEDICARE [address] [place] [id number] [phone] [id number] SEBASTIÁN GARCIA Self - patient is the [...]
--- OUTSIDE RECORDS SUMMARY | 2025-07-27 10:53 | XMS_ITS | Encounter Summary ---
Author Organization [employer] Address [address] [place] [address] 7t [place] [address] Care Team Providers Care Lead Vulcanizing Operator Name Role Phone Lei Thacker Unavailable Unavailable Sharmila Azar DO Primary Care Provider [phone] Inactive/Transferred Primary Care Provider Unava ilable Reason for Visit * Reason Onset Date Comments Med Refill 11/05/2024 Encounter Details Date Type Department Care Team (Late st Contact Info) Description 11/05/2024 Refill [facility] [address] [place] [address] Shilpa Miller, MARIA C [address] [place] [address] Type 2 diabetes mellitus with diabetic polyneuropathy ([facility]/HCC) Social History Tobacco Use Types Packs/Day Years [...] documented as of this encounter Care Teams Lead Vulcanizing Operator Relationship Specialty Start Date End Date Sharmila Azar DO [address] [place] [address] PCP - General Family Medicine 11/02/24 06/17/25 Inactive/Transferred PCP - General 06/18/25 06/18/25 Lei Thacker Health Navigator 09/17/24 documented as of this encounter
--- OUTSIDE RECORDS SUMMARY | 2025-07-27 10:53 | XMS_ITS | Encounter Summary ---
Author Organization [employer] Address [address] [place] [address] 7 [place] [address] Care Team Providers Care Coating Manager Name Role Phone Lei Thacker Unavailable Unavailable Sharmila Azar DO Primary Care Provider [phone] Inactive/Transferred Primary Care Provider Unava ilable Reason for Visit * Reason Onset Date Comments Med Refill 12/24/2024 Encounter Details Date Type Department Care Team (Late st Contact Info) Description 12/24/2024 Refill [place] [facility] MEDICAL [address] [place] [address] Sharmila Azar DO [address] [place] [address] Anxiety; PTSD (post-traumatic stress disorder) Social History [...] encounter Miscellaneous Notes * Telephone Encounter - Kmaeron Lombardi - 12/25/2024 5:24 PM EST Rx [...] documented as of this encounter Care Teams Coating Manager Relationship Specialty Start Date End Date Sharmila Azar DO [address] [place] [address] PCP - General Family Medicine 11/02/24 06/17/25 Inactive/Transferred PCP - General 06/18/25 06/18/25 Lei Thacker Health Navigator 09/17/24 documented as of this encounter
--- OUTSIDE RECORDS SUMMARY | 2025-07-27 10:53 | XMS_ITS | Encounter Summary ---
Author Organization [employer] Address [address] [place] [address] 7 [place] [address] Care Team Providers Care Leather Splitter Name Role Phone Lei Thacker Unavailable Unavailable Reason for Referral * Consultation (Routine) - Pending Review Specialty Diagnoses / Procedures Referred By Cristina coughlin Referred To Contact Endocrinology Diagnoses Low serum cortisol level Sharmila Azar DO [address] [place] [address] Phone: tel: fax: [facility] Endocrinology [address] [facility] 3rd [address] [place], [place] Phone: tel: fax: Referral ID Status Reason Start Date Expiration Date Visits Requested Visits Authorized [id number] Pending Review Specialty Services Required 07/17/2025 07/17/2026 1 1 Encounter Details Date Type Department Care Team (Late st Contact Info) Description 07/17/2025 Results Follow-Up [facility] MEDICAL [address] [place] [address] Sharmila Azar DO [address] [place] [address] Cortisol, Total, Magnesium 486170, Sed Rate by Modified Lilibeth, Additional followed-up results: 4 Social History Tobacco Use Types Packs/Day Years [...] your housing situation today? I have ann susna 12/07/[address] you li [...] of this encounter Plan of Treatment Scheduled Referrals Name Type Priority Associated Diagnoses Order Schedule Referral to Endocrinology Outpatient Referral Routine Low serum cortisol level Expected: 07/17/2025 (Approximate), Expires: 07/17/2026 documented as of this encounter Procedures Procedure Name Priority Date/Time Associated Diagnosis Comments ACTH, PLASMA Routine 07/20/2025 9:20 AM EDT Low serum cortisol level RHEUMATOID ARTHRITIS (RA) PROFILE Routine 07/20/2025 9:19 AM EDT Arthralgia of both knees Lymphedema ROEL SCREEN, IFA, W/REFL TITER AND PATTERN Routine 07/20/2025 9:19 AM EDT Arthralgia of both knees Lymphedema documented in this encounter Results * ACTH, Plasma (07/20/2025 9:20 AM EDT) Pathologist [facility] ACTH, Plasma 23.4 7.2 - 63.3 pg/mL [facility] 1 Comment:ACTH reference inter oliver for samples collected between 7 and 10 AM. Blood Venous blood specimen / Unknown 07/20/2025 9:20 AM EDT 07/20/2025 Narrative Resulting Agency Comment Performed at: 01 - [facility], [place], [place] [id number] [employer] Sales Representative: Megan Curry MD, Phone: [phone] us Sharmila Azar DO LAB BLOOD ORDERABLES Final Res ult [facility] 1 * Rheumatoid Arthritis (RA) Profile [[id number]] (07/20/2025 9:19 AM EDT) Rheumatoid Factor (RF) <10.0 <14.0 IU/mL [facility] 1 Anti-CCP Ab, IgG/IgA 3 0 - 19 units [facility] 1 Comment: Negative <20 Weak positive 20 - 39 Moderate positive 40 - 59 Strong positive >59 Blood Venous blood specimen / Unknown 07/20/2025 9:19 AM EDT 07/20/2025 Narrative Resulting Agency Comment Performed at: - [facility] [id number] [employer] Sales Representative: Megan Curry MD, Phone: [phone] [facility] LAB BLOOD ORDERABLES Final Res ult Performing Organization Address [facility] Co de Phone Number [facility] 1 [...] Narrative Resulting Agency Comment Performed at: - [facility] [id number] [employer] Sales Representative: Megan Curry MD, Phone: [phone] [facility] LAB BLOOD ORDERABLES Final Res ult Performing Organization Address City/[facility]/ZIP Co de Phone Number [facility] 1 documented in this encounter Visit Diagnoses Diagnosis Low serum cortisol level- Primary Arthralgia of both knees Lymphedema Other noninfectious lymphedema documented in this encounter Additional Health Concerns Assessment Noted Time PHQ-9 Depression Total Score: 6 06/22/20 25 2:22 PM EDT documented as of this encounter Care Teams Leather Splitter Relationship Specialty Start Date End Date Lei Thacker Health Navigator 09/17/24 documented as of this encounter
--- OUTSIDE RECORDS SUMMARY | 2025-07-27 10:53 | XMS_ITS | Encounter Summary ---
Author Organization [employer] Address [address] [place] [address] 7 [place] [address] Care Team Providers Care Investment Executive Name Role Phone Shilpa Miller CNP Primary Care Provider [phone] Francheska Tucker Primary Care Provider [phone] Lei Thacker Unavailable Unavailable Sharimla Azar DO Primary Care Provider [phone] Inactive/Transferred Primary Care Provider Unava ilable Encounter Details Date Type Department Care Team (Late st Contact Info) Description 10/26/2022 Abstract Pat [facility] MEDICAL [address] [place] [address] Shilpa Miller CNP 73 [place] [address] Social History Tobacco Use Types Packs/Day Years [...] Results * (ABNORMAL) Hemoglobin A1c (06/28/2022) Pathologist [facility] Hemoglobin A1C 7.6(A) 4.0 - 6.0 % Blood Venous blood specimen / Unknown Historical Provider LAB BLOOD ORDERABLES Layla l Result * Lipid Panel, Standard (06/06/2022) Pathologist [facility] Triglycerides 98 40 - 160 mg/dL Cholesterol 138 0 - 200 mg/dL HDL Cholesterol 60 35 - 70 mg/dL LDL Cholesterol 58 mg/dL Blood Venous blood specimen / Unknown Historical Provider LAB BLOOD ORDERABLES Layla l Result * Mammography (12/25/2021) Pathologist [facility] Mammogram BI RADS: 2 Benign Anatomical Region Laterality Modality Other [facility] Provider HEALTH MAINTENANCE Final Result documented in this encounter Visit Diagnoses Not on filedocumented in this encounter Care Teams Investment Executive Relationship Specialty Start Date End Date Shilpa Miller CNP [address] [place] [address] PCP - General Family Medicine 10/16/22 10/24/23 Francheska Tucker FNP [address] [place] [address] PCP - General Family Medicine 10/25/23 11/01/24 Sharmila Azar DO [address] [place] [address] PCP - General Family Medicine 11/02/24 06/17/25 Inactive/Transferred PCP - General 06/18/25 06/18/25 Lei Thacker Health Navigator 09/17/24 documented as of this encounter
--- OUTSIDE RECORDS SUMMARY | 2025-07-27 10:53 | XMS_ITS | Encounter Summary ---
Author Organization [employer] Address [address] [place] [address] 7 [place] [address] Care Team Providers Care Fence Maker Name Role Phone Shilpa Miller CNP Primary Care Provider [phone] Francheska Tucker Primary Care Provider [phone] Lei Thacker Unavailable Unavailable Sharmila Azar DO Primary Care Provider [phone] Inactive/Transferred Primary Care Provider Unava ilable Encounter Details Date Type Department Care Team (Late st Contact Info) Description 11/30/2022 Abstract [place] [facility] MEDICAL [address] [place] [address] Shilpa Miller CNP [address] [place] [address] Social History Tobacco Use Types Packs/Day Years [...] on filedocumented in this encounter Care Teams Fence Maker Relationship Specialty Start Date End Date Shilpa Miller CNP [address] [place] [address] PCP - General Family Medicine 10/16/22 10/24/23 Francheska Tucker FNP [address] [place] [address] PCP - General Family Medicine 10/25/23 11/01/24 Sharmila Azar DO [address] [place] [address] PCP - General Family Medicine 11/02/24 06/17/25 Inactive/Transferred PCP - General 06/18/25 06/18/25 Lei Thacker Health Navigator 09/17/24 documented as of this encounter
--- OUTSIDE RECORDS SUMMARY | 2025-07-27 10:53 | XMS_ITS | Encounter Summary ---
Author Organization [employer] Address [address] [place] [address] 7t [place] [address] Care Team Providers Care Warp Hauler Name Role Phone Lei Thacker Unavailable Unavailable Encounter Details Date Type Department Care Team (Late st Contact Info) Description 07/22/2025 Results Follow-Up [facility] MEDICAL [address] [place] [address] Sharmila Azar DO 73 [place] [address] TSH with Reflex to Free T4 [[id number]] Social History Tobacco Use Types Packs/Day Years [...] documented as of this encounter Care Teams Warp Hauler Relationship Specialty Start Date End Date Lei Thacker Health Navigator 09/17/24 documented as of this encounter
--- OUTSIDE RECORDS SUMMARY | 2025-07-27 10:53 | XMS_ITS | Encounter Summary ---
Author Organization [employer] Address [address] [place] [address] 7 [place] [address] Care Team Providers Care Dot Net Developer Name Role Phone Lei Thacker Unavailable Unavailable Sharmila Azar DO Primary Care Provider [phone] Inactive/Transferred Primary Care Provider Unava ilable Reason for Visit * Reason Comments Med Refill Encounter Details Date Type Department Care Team (Late st Contact Info) Description 11/09/2024 Refill Pat [facility] MEDICAL [address] [place] [address] Francheska Tucker FNP [address] [place] [address] Acquired hypothyroidism Social History Tobacco Use Types [...] documented as of this encounter Care Teams Dot Net Developer Relationship Specialty Start Date End Date Sharmila AzarDO 73 [place] [address] PCP - General Family Medicine 11/02/24 06/17/25 Inactive/Transferred PCP - General 06/18/25 06/18/25 Lei Thacker Health Navigator 09/17/24 documented as of this encounter
--- OUTSIDE RECORDS SUMMARY | 2025-07-27 10:53 | XMS_ITS | Encounter Summary ---
Author Organization [employer] Address [address] [place] [address] 7 [place] [address] Care Team Providers Care Filter Machine Operator Name Role Phone Lei Thacker Unavailable Unavailable Reason for Visit * Reason Onset Date Comments [employer] 07/10/2025 Phone Number # [phone] Number # [phone] Encounter Details Date Type Department Care Team (Late st Contact Info) Description 07/10/2025 Telephone Pat [facility] MEDICAL [address] [place] [id number] Pcp, Pat Unassigned [employer] (Phone Number # [phone]/ ) Social History Tobacco Use Types Packs/Day [...] t he electric, gas, oil or water [employer] threatened to shut off services in your [...] Telephone Encounter - Alison Flores, RMA - 07/24/2025 8:46 AM EDT Hema sent a [employer] message yesterday stating she spoke to Britt the mushroom growing supervisor at [employer] and [facility] her Pull [facility] and it takes about 5 to 7 days for shipping to get to her. She was very thankful for me helping her on this matter. I did advise to her if she needed anything else please do not hesitate to reach out to me and let me know and I can help her. Closing TE * Telephone Encounter - PJ Blackwood - 07/23/2025 11:17 AM EDT Hema sent me a my chart this morning stating she spoke to Britt from [employer] a mushroom growing supervisor to see where the status of the PA was at Britt told her it was sent to [facility] and it can take up to [address] [facility] hopefully it does not take that long for approval. [employer] did state if they needed any more information they will reach right out to us or [employer] right away. * Telephone Encounter - PJ Blackwood - 07/21/2025 12:27 PM EDT I called out to [facility] and spoke to shruti Estrella and she talked to Marni in the department that handles the forms for mass and Delores stated, Marni is in the process of sending all paperwork overto [employer] health insurance for approval for the prior [...] 07/20/2025 5:14 PM EDT Called back to Sherman Marte to see the status of things. They [...] time, to see if this gets through [facility] and uploaded to her chart at [employer] [facility] and [employer] supplies can be shipped. * Telephone Encounter - PJ Blackwood - 07/20/2025 1:07 PM EDT I called out to [employer]. The first sales account coordinator I spoke to was Da he was [...] good as she transferred me to her mushroom growing supervisor named Mayi whom was very nice [...] Susu Toney - 07/17/2025 12:20 PM EDT Shermanhelen called regarding the patient and the dme [...] of things. * Telephone Encounter - PJ Blackwood - 07/15/2025 9:41 AM EDT I did [...] explain to her on the phone what Claudy from [employer] stated to me as I did not know if she read the my chart message I sent her earlier. She did explain to me that [facility] I did let her know they [...] insurance as she did a change and Andreyclaraford told me there was a note in the system stating that this was said to hema it can take up to 48 to 72 hours for this process before it sent to the insurance [employer] [facility] [place] as they told her yesterday on 07/09/25 [...] system that she spoke to us the rust krishan Bergeron calls back there and its documented that we spoke on the phone together. documented in this encounter Plan of Treatment Not on file documented as of this encounter Visit Diagnoses Not on filedocumented in this encounter Additional Health Concerns Assessment Noted Time PHQ-9 Depression Total Score: 6 06/22/20 25 2:22 PM EDT documented as of this encounter Care Teams Filter Machine Operator Relationship Specialty Start Date End Date Lei Thacker Health Navigator 09/17/24 documented as of this encounter
--- OUTSIDE RECORDS SUMMARY | 2025-07-27 10:53 | XMS_ITS | Encounter Summary ---
Author Organization [employer] Address [address] [place] [address] 7 [place] [address] Care Team Providers Care Neurology Nurse Name Role Phone Lei Thacker Unavailable Unavailable Sharmila Azar DO Primary Care Provider [phone] Inactive/Transferred Primary Care Provider Unava ilable Reason for Visit * Reason Onset Date Comments Med Refill 11/27/2024 Encounter Details Date Type Department Care Team (Late st Contact Info) Description 11/27/2024 Refill [place] [facility] MED[facility] [address] [place] [address] Sharmila Azar DO [address] [place] [address] Anxiety; PTSD (post-traumatic stress disorder) Social History [...] documented as of this encounter Care Teams Neurology Nurse Relationship Specialty Start Date End Date Sharmila Azar DO [address] [place] [address] PCP - General Family Medicine 11/02/24 06/17/25 Inactive/Transferred PCP - General 06/18/25 06/18/25 Lei Thacker Health Navigator 09/17/24 documented as of this encounter
[2025-07-29 17:58] LABS: Proteinase 3 PR3 Antibodies <1.0 AI
== END 2025-07-27 09:15 | disposition home or self-care (01) ==
LOC: HO.LAB 09:14
PROVIDERS: Visit Provider Nurse Practitioner Family
DX: D72.829 Elevated white blood cell count, unspecified (principal); R30.0 Dysuria
CPT/HCPCS: 36415; 81001; 86021; 87040

== ENCOUNTER 2025-07-29 12:41 | Outpatient (AMB) | payer MEDICARE, MEDICAID, SELFPAY ==
--- NOTE | 2025-07-29 12:46 | A.OFFVIS_ITS ---
Vital Signs 07/29/25 12:47 Height 5 ft 2 in Weight 363 lb 12.203 oz BMI 66.5 BP 150/88 H Blood Pressure Location Rt brachial Position Sitting Pulse 91 Pulse Source Pulse Oximeter Pulse Oximetry (%) 98 Oxygen Delivery Method Room Air Intake Visit Reasons: AUTO REPAIR TECHNICIAN DMT2 Intake Note: NEW Patient presents today to establish treatment for Type 2 Diabetes Mellitus: Last Diabetic eye exam was on: 05/29/2025, [facility] Last Podiatry exam was on: Has an appt coming up in 08/10/[address] [facility] Parole Hearing Officer Most recent HbA1c: 7.1%, 06/22/2025 PCP Random Glucose: 140 mg/dL Toaster Operator Required: No Accompanied by: Self / Same As Patient Allergies lamotrigine (From Lamictal) Allergy (Severe, Verified 07/29/25 13:00) Muscle Pain lithium Allergy (Severe, Verified 07/29/25 13:00) seizures omalizumab (Xolair) Allergy (Severe, Verified 07/29/25 13:00) anaphylaxis penicillin G Allergy (Severe, Verified 07/30/25 08:24) Anaphylaxis Sulfa (Sulfonamide Antibiotics) Allergy (Severe, Verified 07/29/25 13:00) anaphylaxis sulfamethoxazole (From Bactrim) Allergy (Severe, Verified 07/29/25 13:00) Anaphylaxis sumatriptan Allergy (Severe, Verified 07/29/25 13:00) Unknown trimethoprim (From Bactrim) Allergy (Severe, Verified 07/29/25 13:00) Anaphylaxis vortioxetine (From Trintellix) Allergy (Severe, Verified 07/29/25 13:00) serotin toxicity acetaminophen (From Tylenol) Allergy (Intermediate, Verified 07/30/25 08:20) Hives desvenlafaxine Allergy (Intermediate, Verified 07/30/25 08:20) Wheezing iodine Allergy (Intermediate, Verified 07/30/25 08:43) Rash ziprasidone Allergy (Intermediate, Verified 07/30/25 08:24) Seizure pediatric multivitamin no.130 (From Floriva Plus (with biotin)) Allergy (Mild, Verified 07/30/25 08:43) hives sodium fluoride (From Floriva Plus (with biotin)) Allergy (Mild, Verified 07/30/25 08:43) hives amoxicillin Allergy (Unknown, Verified 07/29/25 13:00) Unknown azithromycin (Zithromax) Allergy (Unknown, Verified 07/29/25 13:00) Unknown furosemide (Lasix) Allergy (Unknown, Verified 07/29/25 13:00) Unknown hydrochlorothiazide Allergy (Unknown, Verified 07/29/25 13:00) Unknown lisinopril Allergy (Unknown, Verified 07/29/25 13:00) Unknown metformin Allergy (Unknown, Verified 07/29/25 13:00) Unknown montelukast (Singulair) Allergy (Unknown, Verified 07/29/25 13:00) Unknown pravastatin Allergy (Unknown, Verified 07/29/25 13:00) Unknown spironolactone Allergy (Unknown, Verified 07/29/25 13:00) Unknown sulfacetamide Allergy (Unknown, Verified 07/29/25 13:00) Unknown gabapentin Allergy (Verified 07/29/25 13:00) night sweats liraglutide Adverse Reaction (Intermediate, Verified 07/30/25 08:20) Nausea and Vomiting semaglutide Adverse Reaction (Intermediate, Verified 07/30/25 08:20) Nausea and Vomiting zolair Allergy (Severe, Uncoded 07/29/25 13:00) Anaphylaxis JAYRO INHIBITORS Allergy (Unknown, Uncoded 07/29/25 13:00) Unknown LATEX Allergy (Unknown, Uncoded 07/29/25 13:00) Unknown NSAIDS Allergy (Unknown, Uncoded 07/29/25 13:00) Unknown SHELLFISH Allergy (Unknown, Uncoded 07/29/25 13:00) Unknown Sulfacet-R Allergy (Unknown, Uncoded 07/29/25 13:00) Unknown TREE NUTS Allergy (Unknown, Uncoded 07/29/25 13:00) Unknown Referred by: Primary Care Physician Marian Lomeli , [facility]- HPI Comments Details: The patient is a 55-year-old female presenting with management of diabetes mellitus and thyroid dysfunction. The patient was diagnosed with diabetes mellitus in 1991 during . She has been on insulin therapy since 1992, with her diabetes being managed primarily by her primary care physician due to endocrinology not accepting her as a patient because her diabetes was considered too well controlled. Her current A1c is 7.1%, and she reports fluctuations in her blood glucose levels, particularly at night. The patient has a history of thyroid dysfunction, initially diagnosed in 1992, for which she has been on levothyroxine therapy. Her thyroid medication dosage has been adjusted multiple times, with recent changes causing her to experience symptoms of cold intolerance and fatigue when the dose was lowered to 200 micrograms. She reports feeling better at a dose of 237 micrograms, despite her TSH being slightly suppressed. The patient also reports a history of lymphedema and knee osteoarthritis, which have contributed to mobility issues and difficulty in weight management. She has lost 26 pounds since November without significant changes in her lifestyle, but continues to experience knee pain and swelling. She reports trying GLP ones in the past which caused skin and throat swelling. Allergy: Patient has extensive allergy history, she does not recall all of it, she has notes at home that she will provide when she comes back as she forgot to bring in today. ROS: Reports previous cold intolerance, fatigue, and weight loss of 26 pounds since November. Denies palpitations, diarrhea, or anxiety. Musculoskeletal: Reports knee pain and swelling. Denies recent trauma. [facility] Medical History (Updated 07/30/25 @ 09:41 by Keri Santana MD) Hx of seasonal allergies History of posttraumatic stress disorder (PTSD) Hx of mammogram (~04/2025) Torn meniscus Panic disorder Anxiety and depression Neuropathy Headache Incontinence GERD (gastroesophageal reflux disease) IBS (irritable bowel syndrome) Swelling Edema Osteoarthritis Arthritis Thyroid disorder Diabetes High cholesterol HTN (hypertension) Asthma Surgical History Hx of colonoscopy (~2018) History of tonsillectomy Previous section Family History Mother Asthma HTN (hypertension) High cholesterol Diabetes Cardiovascular disease Thyroid disorder Mental health disorder Maternal Grandmother HTN (hypertension) High cholesterol Cardiovascular disease Father High cholesterol Cardiovascular disease Lung cancer Mental health disorder Paternal Grandfather No problems noted. Maternal Grandfather Cardiovascular disease Paternal Grandmother Leukemia Social History Housing: House Alcohol intake: never Patient Tobacco Use Status: Never used Tobacco e-Cigarette/Vaping Use: Never Used Second Hand Smoke Exposure: No Current occupational status: disabled Cognitive needs: No Hearing needs: Yes (left hearing aide) Vision needs: Yes (wear glasses) Physical Exam Vital Signs: Last Vital Signs Pulse 91 07/29/25 12:47 BP 150/88 H 07/29/25 12:47 Pulse Ox 98 07/29/25 12:47 Oxygen Delivery Method Room Air 07/29/25 12:47 BMI result Body Mass Index 66.5 Results Reviewed Results Reviewed: Laboratory Last Values Glucose (Clinic) 140 mg/dL (60-115) H 07/29/25 12:57 Assessment & Plan Assessment & Plan (1) BMI 60.0-69.9, adult: Code(s): Z68.44 - Body mass index [BMI] 60.0-69.9, adult Category: Medical Plan: * Acknowledge and reinforce recent weight loss success. * Discuss potential adjuncts for weight management (nutrition, physical therapy, pharmacotherapy if appropriate). * Address barriers to mobility (knee pain, lymphedema); consider referral to physical therapy and/or lymphedema clinic. * Continue to support efforts toward eventual eligibility for knee replacement. * Will provide referral to (2) Diabetes mellitus with complication: Code(s): E11.8 - Type 2 diabetes mellitus with unspecified complications Category: Medical Plan: Type 2 Diabetes Mellitus, Insulin-Dependent * Longstanding history, diagnosed in 1991 (initially during , likely pre-existing). * On insulin therapy since 1992. * Most recent A1c: 7.1%. * CGM data: 67% time in range, with some nocturnal hyperglycemia and occasional high readings. * Patient is actively engaged in self-management, brings in logs and lab results. Plan * Decrease Lantus to 55 units patient was not using the full ordered dose, but titrate cautiously to avoid hypoglycemia, especially with bedtime glucose near 100 mg/dL. * Will adjust insulin sliding scale as below * Reinforce use of CGM and encourage continued data sharing. * Provide close follow-up for insulin adjustments; patient instructed to call with any hypoglycemia or significant changes in glucose patterns. * Continue to monitor A1c and rehd-ap-vospr; goal >70% [id number]. ISS Insulin Dose (units) ? Take 10?15 minutes prior to the meal Blood Sugar Level (mg/dl) Small Meal?(low carb <30g like salad, eggs with meat) Normal Meal?(30?60g like sandwich, chips, meat, small starch portion) Large Meal?(>60g like pizza, lasagna, German food, meal + dessert) <100 0 1 2 101?150 1 2 4 151?200 2 4 6 201?250 4 6 8 251?300 6 8 10 301?350 8 10 12 351?400 10 12 14 >400 12 14 16 (3) Hypothyroid: Code(s): E03.9 - Hypothyroidism, unspecified Category: Medical Qualifiers: Hypothyroidism type: due to Gene's thyroiditis Qualified Code(s): E06.3 - Autoimmune thyroiditis Plan: * On levothyroxine since 1992. * Recent dose adjustments: previously on 225 mcg, increased to 237 mcg (reported symptomatic improvement?resolution of cold intolerance), then decreased to 200 mcg due to suppressed TSH. * Current symptoms: improved cold intolerance at higher dose, persistent constipation, stable weight loss (?26 lbs since November), no hyperthyroid symptoms (no palpitations, diarrhea, or anxiety beyond baseline). * TSH recently suppressed but not undetectable. Plan * Resume levothyroxine 225 mcg daily (previous dose prior to recent changes). * Rationale: Patient reports best symptom control at this dose, and TSH was suppressed but not undetectable. Avoid large dose changes; titrate gradually. * Recheck TSH, free T4, and free T3 in 6?8 weeks. * Public Health Microbiologist on proper administration: Take levothyroxine on an empty stomach, at least 1 hour before food/other meds; if meal contains calcium/iron, separate by 2?3 hours. * Monitor for symptoms of over- or under-replacement (palpitations, heat/cold intolerance, bowel changes, etc.). Orders: Orders TSH reflex Free T4 07/29/25 E06.3 - Autoimmune thyroiditis Glutamic acid decarboxylase Ab 07/29/25 E11.8 - Type 2 diabetes mellitus with unspecified complications Microalbumin, Random (w Creat) 07/29/25 E11.8 - Type 2 diabetes mellitus with unspecified complications ZNT8 Antibodies 07/29/25 E11.8 - Type 2 diabetes mellitus with unspecified complications Islet Cell Antibody Scrn/Titer 07/29/25 E11.8 - Type 2 diabetes mellitus with unspecified complications Referrals Sleep Medicine Referral Z68.44 - Body mass index [BMI] 60.0-69.9, adult Medical Weight Management Referral Z68.44 - Body mass index [BMI] 60.0-69.9, adult Medications: New insulin aspart U-100 (Novolog FlexPen U-100 Insulin aspart) Please inject insulin 15 units TID for meals. MDD: 60 units 15 units (0.15 mL) subcut TID 30 mL 3RF levothyroxine 25 mcg PO DAILY 30 tabs 3RF E06.3 - Autoimmune thyroiditis Patient Instructions: Lantus 55 units nightly Insulin Dose (units) ? Take 10?15 minutes prior to the meal Blood Sugar Level (mg/dl) Small Meal?(low carb <30g like salad, eggs with meat) Normal Meal?(30?60g like sandwich, chips, meat, small starch portion) Large Meal?(>60g like pizza, lasagna, German food, meal + dessert) <100 0 1 2 101?150 1 2 4 151?200 2 4 6 201?250 4 6 8 251?300 6 8 10 301?350 8 10 12 351?400 10 12 14 >400 12 14 16 Take Levothyroxine 225 mcg daily, away from other meds and food at least 1 hour, if food is rich in calcium or iron, wait 2-3 hours. 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
[2025-07-29 12:47] VITALS: BP 150/88; PULSE 91; O2SAT 98; BMI 66.5
[2025-07-29 13:08] LABS: Glucose, Whole Blood 140 mg/dL (60-115)
--- OUTSIDE RECORDS SUMMARY | 2025-07-29 15:09 | XMS_ITS | Encounter Summary ---
Author Organization [employer] Address [address] [place] [address] 7[address] [place] [address] Care Team Providers Care Street Light Lamp Cleaner Name Role Phone Francheska Tucker MADELEINE Primary Care Provider [phone] Lei Thacker Unavailable Unavailable Sharmila Azar DO Primary Care Provider [phone] Inactive/Transferred Primary Care Provider Unava ilable Encounter Details Date Type Department Care Team (Late st Contact Info) Description 06/25/2024 Orders Only [facility] MEDICAL [address] [place] [address] Provider, MD Sharad Social History Tobacco Use [...] the past 12 months, has t he to be, gas, oil or water [employer] threatened to shut off services in your [...] documented as of this encounter Care Teams Street Light Lamp Cleaner Relationship Specialty Start Date End Date Francheska Tucker FNP [address] [place] [address] PCP - General Family Medicine 10/25/23 11/01/24 Sharmila Azar DO [address] [place] [address] PCP - General Family Medicine 11/02/24 06/17/25 Inactive/Transferred PCP - General 06/18/25 06/18/25 Lei Thacker Health Navigator 09/17/24 documented as of this encounter
--- OUTSIDE RECORDS SUMMARY | 2025-07-29 15:09 | XMS_ITS | Encounter Summary ---
Author Organization [employer] Address [address] [place] [address] 7 [place] [address] Care Team Providers Care Cabin Crew Name Role Phone Lei Thacker Unavailable Unavailable Sharmila Azar DO Primary Care Provider [phone] Inactive/Transferred Primary Care Provider Unava ilable Reason for Visit * Reason Comments Med Refill Encounter Details Date Type Department Care Team (Late st Contact Info) Description 03/02/2025 Refill Pat [facility] MED[facility] [address] [place] [address] Sharmila Azar DO [address] [place] [address] Anxiety; PTSD (post-traumatic stress disorder) Social History [...] documented as of this encounter Care Teams Cabin Crew Relationship Specialty Start Date End Date Sharmila Azar DO [address] [place] [address] PCP - General Family Medicine 11/02/24 06/17/25 Inactive/Transferred PCP - General 06/18/25 06/18/25 Lei Thacker Health Navigator 09/17/24 documented as of this encounter
--- OUTSIDE RECORDS SUMMARY | 2025-07-29 15:09 | XMS_ITS | Encounter Summary ---
Author Organization [employer] Address [address] [place] [address] 7 [place] [address] Care Team Providers Care Well Drill Operator Cable Tool Name Role Phone Lei Thacker Unavailable Unavailable Sharmila Azar DO Primary Care Provider [phone] Inactive/Transferred Primary Care Provider Unava ilable Reason for Visit * Reason Comments Med Change Request Encounter Details Date Type Department Care Team (Late st Contact Info) Description 03/06/2025 Oneyda Stewart [facility] MED[facility] [address] [place] [address] Sharmila Azar DO [address] [place] [address] Type 2 diabetes mellitus with diabetic polyneuropathy, with long-term current use of insulin ([facility]) Social History Tobacco Use Types Packs/Day Years [...] is your housing situation today? I have nan davis 12/07/[address] you [...] polyneuropathy, with long-term current use of insulin ([facility]) documented in this encounter Additional Health Concerns Assessment Noted Time PHQ-9 Depression Total Score: 10 024 7:39 AM EST documented as of this encounter Care Teams Well Drill Operator Cable Tool Relationship Specialty Start Date End Date Sharmila Azar DO [address] [place] [address] PCP - General Family Medicine 11/02/24 06/17/25 Inactive/Transferred PCP - General 06/18/25 06/18/25 Lei Thacker Health Navigator 09/17/24 documented as of this encounter
--- OUTSIDE RECORDS SUMMARY | 2025-07-29 15:09 | XMS_ITS | Encounter Summary ---
Author Organization [employer] Address [address] [place] [address] 7 [place] [address] Care Team Providers Care Neck Cutter Name Role Phone Lei Thacker Unavailable Unavailable Sharmila Azar DO Primary Care Provider [phone] Inactive/Transferred Primary Care Provider Unava ilable Reason for Visit * Reason Onset Date Comments Med Refill 02/18/2025 Encounter Details Date Type Department Care Team (Late st Contact Info) Description 02/18/2025 Refill [place] [facility] [address] [place] [address] Sharmila Azar DO [address] [place] [address] Anxiety; PTSD (post-traumatic stress disorder) Social History [...] documented as of this encounter Care Teams Neck Cutter Relationship Specialty Start Date End Date Sharmila Azar DO [address] [place] [address] PCP - General Family Medicine 11/02/24 06/17/25 Inactive/Transferred PCP - General 06/18/25 06/18/25 Lei Thacker Health Navigator 09/17/24 documented as of this encounter
--- OUTSIDE RECORDS SUMMARY | 2025-07-29 15:10 | XMS_ITS | Encounter Summary ---
Author Organization [employer] Address [address] [place] [address] [address]t [place] [address] Care Team Providers Care Inclusion Teacher Name Role Phone Francheska Tucker MADELEINE Primary Care Provider [phone] Lei Thacker Unavailable Unavailable Sharmila Azar DO Primary Care Provider Inactive/Transferred Primary Care Provider Unava ilable Reason for Visit * Reason Comments Med Change Request Encounter Details Date Type Department Care Team (Late st Contact Info) Description 05/12/2024 Oneyda Stewart [facility] MED[facility] [address] [place] [address] Shilpa Miller CNP [address] [place] [address] Psychophysiological insomnia Social History Tobacco Use Types [...] Notes * Telephone Encounter - Branden Mcclure, FOOD SCIENCE PROFESSOR - 05/12/2024 9:56 AM EDT Pt tried [...] documented as of this encounter Care Teams Inclusion Teacher Relationship Specialty Start Date End Date Francheska Tucker FNP [address] [place] [address] PCP - General Family Medicine 10/25/23 11/01/24 Sharmila Azar DO [address] [place] [address] PCP - General Family Medicine 11/02/24 06/17/25 Inactive/Transferred PCP - General 06/18/25 06/18/25 Lei Thacker Health Navigator 09/17/24 documented as of this encounter
--- OUTSIDE RECORDS SUMMARY | 2025-07-29 15:10 | XMS_ITS | Encounter Summary ---
Author Organization [employer] Address [address] [place] [address] [address] [place] [address] Care Team Providers Care Drupal Web Developer Name Role Phone Lei Thacker Unavailable Unavailable Encounter Details Date Type Department Care Team (Late st Contact Info) Description 07/17/2025 Orders Only Pat [facility] MED[facility] [address] [place] [address] Sharmila Azar DO [address] [place] [address] Arthralgia of both knees (Primary Dx); Lymphedema; [...] the past 12 months, has t he [employer], gas, oil or water company threatened to [...] Expected: 07/23/2025 (Approximate), Expires: 07/23/2026 Blood culture [id number] Microbiology Routine Abnormal CBC ESR raised Expected: 07/23/2025, Expires: 07/23/2026 documented as of this encounter Procedures Procedure Name Priority Date/Time Associated Diagnosis Comments CBC WITH AUTO DIFFERENTIAL Routine 07/20/2025 9:20 AM EDT Arthralgia of both knees Lymphedema COMPREHENSIVE METABOLIC PANEL Routine 07/20/2025 9:20 AM EDT Arthralgia of both knees Lymphedema documented in this encounter Results * (ABNORMAL) Comprehensive Metabolic Panel [[id number]] (07/20/2025 9:20 AM EDT) Glucose 143(H) 70 [...] Narrative Resulting Agency Comment Performed at: - [address] [id number] Information Systems Manager: Megan Curry MD, Phone: [phone] us Sharmila Azar DO LAB BLOOD ORDERABLES [...] Agency Comment Performed at: 01 - [facility] [address] [id number] Information Systems Manager: Megan Curry MD, Phone: [phone] us Sharmila Azar DO LAB BLOOD ORDERABLES [...] documented as of this encounter Care Teams Drupal Web Developer Relationship Specialty Start Date End Date Lei Thacker Health Navigator 09/17/24 documented as of this encounter
--- OUTSIDE RECORDS SUMMARY | 2025-07-29 15:10 | XMS_ITS | Encounter Summary ---
Author Organization [employer] Address [address] [facility] [address]t [place] [address] Care Team Providers Care Reamer Hand Name Role Phone Francheska Tucker Primary Care Provider [phone] Lei Thacker Unavailable Unavailable Sharmila Azar DO Primary Care Provider [phone] Inactive/Transferred Primary Care Provider Unava ilable Encounter Details Date Type Department Care Team (Late st Contact Info) Description 07/25/2024 Orders Only [facility] [address] [place] [address] Francheska Tucker FNP [address] [place] [address] Social History Tobacco Use Types Packs/Day Years [...] Blood Venous blood specimen / Unknown Result [facility] Francheska SALVADOR LAB BLOOD ORDERABLES Final [...] documented as of this encounter Care Teams Reamer Hand Relationship Specialty Start Date End Date Francheska Tucker FNP [address] [place] [address] PCP - General Family Medicine 10/25/23 11/01/24 Sharmila zAar DO [address] [place] [address] PCP - General Family Medicine 11/02/24 06/17/25 Inactive/Transferred PCP - General 06/18/25 06/18/25 Lei Thacker Health Navigator 09/17/24 documented as of this encounter
--- OUTSIDE RECORDS SUMMARY | 2025-07-29 15:10 | XMS_ITS | Encounter Summary ---
Author Organization [employer] Address [address] [place] [address] 7 [place] [address] Care Team Providers Care Commercial Driver'S License Driver Name Role Phone Lei Thacker Unavailable Unavailable Reason for Referral * Consultation (Routine) - Pending Review Specialty Diagnoses / Procedures Referred By Cristina coughlin Referred To Contact Endocrinology Diagnoses Low serum cortisol level Sharmila Azar DO [address] [place] [address] Phone: tel: fax: [facility] Endocrinology [address] 3rd [address] [place], [place] Phone: tel: fax: Referral ID Status Reason Start Date Expiration Date Visits Requested Visits Authorized [id number] Pending Review Specialty Services Required 07/17/2025 07/17/2026 1 1 Encounter Details Date Type Department Care Team (Late st Contact Info) Description 07/17/2025 Results Follow-Up [facility] MEDICAL [address] [place] [address] Sharmila Azar DO [address] [place] [address] Cortisol, Total, Magnesium [id number], Sed Rate by Modified Lilibeth, Additional followed-up [...] ACTH, Plasma (07/20/2025 9:20 AM EDT) Pathologist [facility] ACTH, Plasma 23.4 7.2 - 63.3 pg/mL [facility] 1 Comment:ACTH reference inter oliver for samples collected between 7 and 10 AM. Blood Venous blood specimen / Unknown 07/20/2025 9:20 AM EDT 07/20/2025 Narrative Resulting Agency Comment Performed at: 01 - [facility], [place], [place] [id number] Spinner Frame: Megan Curry MD, Phone: [phone] us Sharmila Azar DO LAB BLOOD ORDERABLES Final Res ult [facility] 1 * Rheumatoid Arthritis (RA) Profile [[id number]] (07/20/2025 9:19 AM EDT) Rheumatoid Factor (RF) <10.0 <14.0 IU/mL [facility] 1 Anti-CCP Ab, IgG/IgA 3 0 - 19 units [facility] 1 Comment: Negative <20 Weak positive 20 - 39 Moderate positive 40 - 59 Strong positive >59 Blood Venous blood specimen / Unknown 07/20/2025 9:19 AM EDT 07/20/2025 Narrative Resulting Agency Comment Performed at: - [facility] [id number] Spinner Frame: Megan Curry MD, Phone: [phone] [facility] LAB BLOOD ORDERABLES Final Res ult Performing Organization Address [facility] Co de Phone Number [facility] 1 * [...] Narrative Resulting Agency Comment Performed at: - [facility] [id number] Spinner Frame: Megan Curry MD, Phone: [phone] [facility] LAB BLOOD ORDERABLES Final Res ult Performing Organization Address City/[facility]/ZIP Co de Phone Number [facility] 1 documented in this encounter Visit Diagnoses Diagnosis Low serum cortisol level- Primary Arthralgia of both knees Lymphedema Other noninfectious lymphedema documented in this encounter Additional Health Concerns Assessment Noted Time PHQ-9 Depression Total Score: 6 06/22/20 25 2:22 PM EDT documented as of this encounter Care Teams Commercial Driver'S License Driver Relationship Specialty Start Date End Date Lei Thacker Health Navigator 09/17/24 documented as of this encounter
--- OUTSIDE RECORDS SUMMARY | 2025-07-29 15:10 | XMS_ITS | Encounter Summary ---
Author Organization [employer] Address [address] [place] [address] 7t [place] [address] Care Team Providers Care Election Clerk Name Role Phone Francheska Tucker MADELEINE Primary Care Provider [phone] Lei Thacker Unavailable Unavailable Sharmila Azar DO Primary Care Provider [phone] Inactive/Transferred Primary Care Provider Unava ilable Reason for Visit * Reason Onset Date Comments Med Refill 05/21/2024 Encounter Details Date Type Department Care Team (Late st Contact Info) Description 05/21/2024 Refill Pat [facility] MEDICAL [address] [place] [address] Shilpa Miller, MARIA C [address] [place] [address] Type 2 diabetes mellitus with diabetic polyneuropathy, with long-term current use of insulin ([facility]) Social History Tobacco Use Types Packs/Day [...] VM I am going to send a [employer] message. documented in this encounter Plan of Treatment Not on file documented as of this encounter Visit Diagnoses Diagnosis Type 2 diabetes mellitus with diabetic polyneuropathy, with long-term current use of insulin ([facility]) documented in this encounter Additional Health Concerns Assessment Noted Time PHQ-9 Depression Total Score: 20 024 7:38 AM EDT documented as of this encounter Care Teams Election Clerk Relationship Specialty Start Date End Date Francheska Tucker FNP [address] [facility] [place] [address] PCP - General Family Medicine 10/25/23 11/01/24 Sharmila Azar DO 73 [facility] [place] [address] PCP - General Family Medicine 11/02/24 06/17/25 Inactive/Transferred PCP - General 06/18/25 06/18/25 Lei Thacker Health Navigator 09/17/24 documented as of this encounter
--- OUTSIDE RECORDS SUMMARY | 2025-07-29 15:10 | XMS_ITS | Encounter Summary ---
Author Organization [employer] Address [address] [place] [address] 7t [place] [address] Care Team Providers Care Auto Headlight Mechanic Name Role Phone Lei Thacker Unavailable Unavailable Encounter Details Date Type Department Care Team (Latest Contact Info) Description 07/21/2025 Results Follow-Up [facility] MEDICAL [address] [place] [address] Sharmila Azar DO [address] [place] [address] CBC auto differential, Comprehensive Metabolic Panel [036231] Social History Tobacco Use Types Packs/Day Years [...] r Schedule B Type Natriuretic Peptide (BNP) 797899 Lab Routine Low serum albumin Lymphedema Mild [...] documented as of this encounter Care Teams Auto Headlight Mechanic Relationship Specialty Start Date End Date Lei Thacker Health Navigator 09/17/24 documented as of this encounter
--- OUTSIDE RECORDS SUMMARY | 2025-07-29 15:10 | XMS_ITS | Encounter Summary ---
Author Organization [employer] Address [address] [facility] 7t [place] [address] Care Team Providers Care Junior Project Manager Name Role Phone Francheska Tucker Primary Care Provider [phone] Lei Thacker Unavailable Unavailable Sharmila Azar DO Primary Care Provider [phone] Inactive/Transferred Primary Care Provider Unava ilable Reason for Visit * Reason Comments Med Change Request Encounter Details Date Type Department Care Team (Late st Contact Info) Description 05/26/2024 Oneyda Stewart [facility] MEDICAL [address] [place] [address] Francheska Tucker FNP [address] [place] [address] Type 2 diabetes mellitus with diabetic polyneuropathy, with long-term current use of insulin ([facility]) Social History Tobacco Use [...] polyneuropathy, with long-term current use of insulin ([facility]) documented in this encounter Additional Health Concerns Assessment Noted Time PHQ-9 Depression Total Score: 20 024 7:38 AM EDT documented as of this encounter Care Teams Junior Project Manager Relationship Specialty Start Date End Date Francheska Tucker FNP [address] [place] [address] PCP - General Family Medicine 10/25/23 11/01/24 Sharmila Azar DO 73 [facility] [place] [address] PCP - General Family Medicine 11/02/24 06/17/25 Inactive/Transferred PCP - General 06/18/25 06/18/25 Lei Thacker Health Navigator 09/17/24 documented as of this encounter
--- OUTSIDE RECORDS SUMMARY | 2025-07-29 15:10 | XMS_ITS | Clinical Summary ---
Author Organization [employer] Address [address] [place] [address] 7t [place] [address] Care Team Providers Care Staff Mechanical Engineer Name Role Phone Lei Thacker Unavailable Unavailable Allergies Active Allergy Reactions Criticality Noted Date Comments Campbell Oil Hives,Itching,Rash,S hortness of breath,Swelling,Whee zing High 11/05/1980 Other Reaction(s): Anaphylaxis Amoxicillin 10/11/2022 Other reaction(s): Unknown Aspirin 10/11/2022 Other reaction(s): sensitivity Azithromycin Rash Low 10/11/2022 [place] Flavoring Agent (Non-Screening) Hives,Itching,Shortn ess of breath,Swelling,Whee [...] (PadSORBer Bed Morales Liners) miscIndications:Se angélica obesity ([facility]) 1 1e12 Vector Genomes/m2 4 times [...] polyneuropathy, with long-term current use of insulin ([facility]) Use as directed to test blood sugars 3 times a day 100 strip 12 12/09/19 25 Active levalbuterol (Xopenex) 45 MCG/ACT inhalerIndications :Mild intermittent asthma without complication INHALE 2 PUFFS EVERY 4 HOURS IF NEEDED FOR WHEEZING. 15 g 3 12/25/19 25 Active nystatin (Mycostatin) 034761 UNIT/GM powderIndications: Soo infection of flexural skin Apply topically 2 times daily. 60 g 1 01/01/20 25 026 Active losartan (Cozaar) 100 MG tabletIndications: Essential (primary) hypertension TAKE 1 TABLET (100 MG) BY MOUTH ONCE PER DAY. 90 tablet 3 02/03/20 25 Active Basaglar KwikPen 100 UNIT/ML penIndications:Typ e 2 diabetes mellitus with diabetic polyneuropathy, with long-term current use of insulin ([facility]) Inject 82 Units under the skin at [...] 03/09/20 25 Active Lancets (OneTouch Delica Plus [id number]) miscIndications:Ty pe 2 diabetes mellitus with diabetic polyneuropathy, with long-term current use of insulin ([facility]) CHECK GLUCOSE 3 TIMES A DAY [...] long-term current use of insulin (CMS/[facility]) Inject 8-10 Units under the skin [...] depression, PTSD. Engaged with Dom Carter at [facility] in [place] for medication. Sees Forrest at [facility] for therapy weekly on phone. Feeling symptoms are worsening. Starting to not want to leave the house and losing ghanshyam in doing things. Discussed options. Encouraged to discuss with therapist and prescriber. If feeling unheard by prescriber, encouraged to advocate for a different prescriber, but Ms. Dougherty is more comfortable getting a second opinion through [facility] provider at this time. Will refer to [...] ARB and STATIN. EYE: Dr. Segura in [place] DENTIST: Has false teeth. FBS 60-100. Will [...] pain. Will refer to weight management. Completed VICE PRESIDENT & GENERAL MANAGER [employer] paperwork for Ismael. Assessment & Plan (05/25/2023 [...] Department Care Team Description 07/22/2025 Results Follow-Up [address] [address] Sharmila Azar, DO TSH with Reflex to Free T4 [[id number]] 07/21/2025 Results Follow-Up [address] [address] Sharmila Azar DO CBC auto differential, Comprehensive Metabolic Panel [[id number]] 07/18/2025 Refill [facility] [address] [place] [address] Caitlin Francheska, ALLIANCE MANAGER 07/17/2025 Orders Only [address] [address] Sharmila Azar DO Arthralgia of both knees (Primary Dx); Lymphedema; Abnormal CBC; ESR raised 07/17/2025 Results Follow-Up [address] [address] Sharmila Azar DO Cortisol, Total, Magnesium 836313, Sed Rate by Modified Westergren, Additional followed-up results: 4 07/10/[address] [address] PcpPat Unassigned [employer] (Phone Number # / ) 07/08/[address] [address] Nancy Bridges LPN 07/02/[address] [address] PcpPatssnilay holder 06/22/2025 1:45 PM EDT Office Visit [address] [address] Sharmila Azar DO Primary osteoarthritis of both knees (Primary Dx); Nail dystrophy; Long toenail; Type 2 diabetes mellitus with diabetic polyneuropathy, with long-term current use of insulin (CMS/HCC); Muscle weakness of lower extremity; Diabetic polyneuropathy associated with type 2 diabetes mellitus (CMS/HCC); Acquired lymphedema; Transportation insecurity 06/20/2025 Travel 06/16/[address] [address] Que Pope CMA Pt-1 ride to [place] 06/14/2025 Travel 05/29/2025 Refill [facility] [address] [place] [address] Sharmila Azar DO Type 2 diabetes mellitus with diabetic polyneuropathy, with long-term current use of insulin ([facility]) 05/27/[address] [facility] [address] [place] [address] Sharmila Azar DO 05/23/[address] [facility] [address] [place] [address] Sharmila Azar DO PT-1 05/19/2025 Telephone [facility] [address] [place] [address] Sharmila Azar DO PT-1 05/17/2025 Refill [facility] [address] [place] [address] Sharmila Azar DO Type 2 diabetes mellitus with diabetic polyneuropathy ([facility]) 05/04/2025 Refill [facility] MEDICAL [address] [place] [address] Sharmila Azar DO Allergy, sequela 04/29/2025 Telephone [facility] [address] [place] [address] Sharmila Azar DO PT-1 Rides 04/28/[address] [address] Sharmila Azar DO from Last 3 Months [...] Mother vladimir hawk Hypertension Mother vladimir hawk [place] Mother vladimir hawk after [place]. Stroke Mother vladimir hawk Thyroid disease Mother [...] polyneuropathy, with long-term current use of insulin ([facility]) DIABETES EYE EXAM Routine 05/28/2024 5:27 [...] Narrative Resulting Agency Comment Performed at: - [address] [id number] Sheet Metal Duct Installer Helper: Megan Curry MD, Phone: [phone] [facility] BLOOD ORDERABLES Final Res ult Performing Organization Address [facility] de Phone Number [facility] 1 * ACTH, Plasma (07/20/2025 9:20 AM EDT) Pathologist [facility] ACTH, Plasma 23.4 7.2 - 63.3 pg/mL [facility] 1 Comment:ACTH reference inter oliver for samples collected between 7 and 10 AM. Blood Venous blood specimen / Unknown 07/20/2025 9:20 AM EDT 07/20/2025 Narrative Resulting Agency Comment Performed at: - [address] [id number] Sheet Metal Duct Installer Helper: Megan Curry MD, Phone: [phone] [facility] LAB BLOOD ORDERABLES Final Res ult Performing Organization Address [facility] Co de Phone Number [facility] 1 * (ABNORMAL) Comprehensive Metabolic Panel [[id number]] (07/20/2025 9:20 AM EDT) Glucose 143(H) 70 [...] Resulting Agency Comment Performed at: 01 - [address] [id number] Sheet Metal Duct Installer Helper: Megan Curry MD, Phone: [phone] Sharmila Azar DO LAB BLOOD ORDERABLES Final Res ult [facility] 1 * Rheumatoid Arthritis (RA) Profile [[id number]] (07/20/2025 9:19 AM EDT) Rheumatoid Factor (RF) <10.0 <14.0 IU/mL [facility] 1 Anti-CCP Ab, IgG/IgA 3 0 - 19 units [facility] 1 Comment: Negative <20 Weak positive 20 - 39 Moderate positive 40 - 59 Strong positive >59 Blood Venous blood specimen / Unknown 07/20/2025 9:19 AM EDT 07/20/2025 Narrative Resulting Agency Comment Performed at: - [address] [id number] Sheet Metal Duct Installer Helper: Megan Curry MD, Phone: [phone] [facility] LAB BLOOD ORDERABLES Final Res ult Performing Organization Address [facility]/ZIP Co de Phone Number [facility] 1 [...] Narrative Resulting Agency Comment Performed at: - [facility] [id number] Sheet Metal Duct Installer Helper: Megan Curry MD, Phone: [phone] [facility] LAB BLOOD ORDERABLES Final Res ult Performing Organization Address [facility] Co de Phone Number [facility] 1 * (ABNORMAL) TSH with Reflex to Free T4 [[id number]] (07/20/2025 9:18 AM EDT) TSH 0.293(L) 0.450 - 4.500 uIU/mL [facility] 1 Blood Venous blood specimen / Unknown 07/20/2025 9:18 AM EDT 07/20/2025 Narrative Resulting Agency Comment Performed at: - [facility] [id number] Sheet Metal Duct Installer Helper: Megan Curry MD, Phone: [phone] Francheska DEL RIOP LAB BLOOD ORDERABLES Final Resul t Performing Organization Address City/[facility]/ZIP Co de Phone Number [facility] 1 * (ABNORMAL) Sed Rate by Modified Westergren (07/16/2025 9:55 AM EDT) Sed Rate By Modified Westergren 84(H) 0 - 40 mm/hr [facility] 1 Blood Venous blood specimen / Unknown 07/16/2025 9:55 AM EDT 07/16/2025 Narrative Resulting Agency Comment Performed at: - [address] [id number] Sheet Metal Duct Installer Helper: Megan Curry MD, Phone: [phone] [facility] LAB BLOOD ORDERABLES Final Res ult Performing Organization Address [facility] de Phone Number [facility] 1 * (ABNORMAL) C-reactive Protein (07/16/2025 9:55 AM EDT) C-Reactive Protein 23(H) 0 - 10 mg/L [facility] 1 Blood Venous blood specimen / Unknown 07/16/2025 9:55 AM EDT 07/16/2025 Narrative Resulting Agency Comment Performed at: [address] [id number] Sheet Metal Duct Installer Helper: Megan Curry MD, Phone: [phone] [facility] LAB BLOOD ORDERABLES Final Res ult Performing Organization Address [facility] de Phone Number [facility] 1 * Magnesium 033225 (07/16/2025 9:55 AM EDT) Magnesium 1.9 1.6 - 2.3 mg/dL [facility] 1 Blood Venous blood specimen / Unknown 07/16/2025 9:55 AM EDT 07/16/2025 Narrative Resulting Agency Comment Performed at: [address] [place] [id number] Sheet Metal Duct Installer Helper: Megan Curry MD, Phone: [phone] [facility] LAB BLOOD ORDERABLES Final Res ult [facility] [...] Resulting Agency Comment Performed at: - [facility] [address] [id number] Sheet Metal Duct Installer Helper: Megan Curry MD, Phone: [phone] [facility] LAB BLOOD ORDERABLES Final Res ult Performing Organization Address [facility] Co de Phone Number [facility] 1 * (ABNORMAL) POCT glycosylated hemoglobin (Hgb A1c) (06/22/2025 2:22 PM EDT) Hemoglobin A1C 7.1(A) 4.0 - 5.7 % Blood Capillary blood specimen / Unknown 06/22/2025 2:22 PM EDT [facility] POINT OF CARE TEST ENTER/EDIT ORDERABLES Final Result * BI Mammogram Screening Tomosynthesis Bilateral (04/25/2025 1:53 PM EDT) Anatomical Region Laterality Modality Breast Bilateral Mammography 04/25/2025 1:53 PM EDT Narrative 04/27/2025 4:28 PM EDT PROCEDURE: MM Digital Mammo Screening INDICATION: Screening for breast cancer. No known palpable abnormalities. COMPARISON: [facility] dating back to 01/14/2013. TECHNIQUE: Full-field digital [...] (Negative) Lay letter mailed to patient WSN: [id number] Ordering Physician: Sharmila Azar Dictated By: Kayleigh Hall MD, I Dictated Date/Time: 04/27/25 4:25 pm Reviewed By: Kayleigh Hall MD, I Signed By: Kayleigh Hall MD, I Signed Date/Time: 04/27/25 4:25 pm Transcribed By: [employer] T[employer] T[employer] Supervisor Date/Time: 04/27/25 4:22 pm Birads: Procedure Note Donneriter, Image - 04/27/2025 PROCEDURE: MM Digital Mammo Screening INDICATION: Screening for breast cancer. No known palpableabnormalities. COMPARISON: [facility] dating back to 01/14/2013. TECHNIQUE: Full-field digital [...] (Negative) Lay letter mailed to patient WSN: [id number] Ordering Physician: Sharmila Azar Dictated By: Kayleigh Hall MD, I Dictated Date/Time: 04/27/25 4:25 pm Reviewed By: Kayleigh Hall MD, I Signed By: Kayleigh Hall MD, I Signed Date/Time: 04/27/25 4:25 pm Transcribed By: [employer] Supervisor Date/Time: 04/27/25 4:22 pm Birads: Sharmila Azar [...] AM EST Performed at: 01 - [facility] [address] [id number] Sheet Metal Duct Installer Helper: Megan Curry MD, Phone: [phone] Sharmila Azar DO LAB URINE ORDERABLES Final Res ult Performing Organization Address City/[facility]/ZIP Co de Phone Number [facility] 1 * Hm Diabetes Eye Exam (05/28/2024 5:27 PM EDT) Historical Provider HEALTH MAINTENANCE Final Result * Lipid panel (12/11/2023 12:51 PM EST) Cholesterol, Total 142 (<200) MG/DL [facility] Triglyceride (mg/dL) in Serum/Plasma 89 (<150) MG/DL [facility] HDL Cholesterol 67 (>39) MG/DL [facility] LDL Cholesterol, Calculated 57 (0-130) MG/DL [facility] Non HDL Chol. (LDL+VLDL) 75 (<160) MG/DL [facility] Comment: Testing performed or reported by [facility], a Service of [facility], [address] [place] [address] Rojas Garza MD, Transportation Dispatch Manager IA# [id number] Blood Venous blood specimen / Unknown 12/11/2023 12:51 PM EST 12/11/2023 12:52 PM EST Francheska SALVADOR LAB BLOOD ORDERABLES Final Resul t Performing Organization Address [facility]/ZIP Co de Phone Number [address] [address] * Pap Smear (07/17/2023 12:00 AM EDT) Swab us Historical Provider MD LAB CYTOLOGY ORDERABLES F inal Result Performing Organization Address [facility] Co de Phone Number [facility] [address] [place] [address] * Hm Colonoscopy (12/30/2020) Colonoscopy repeat in 10 yeasr us Historical Provider MD HEALTH MAINTENANCE Final Result * -Hepatitis C Antibody Test (12/14/2020 7:58 AM EST) ANTI-HEPATITIS C NEGATIVE (NEG) [facility] Comment: Reference range: Negative This test was performed on the [employer] immunoassay system. 12/14/2020 7:58 AM EST Shilpa Miller [address] MAGISTRATE HISTORICAL/NON ORDERABLE LABS Final Result Performing Organization Address [facility] de Phone Number [facility] [address] * -HIV AB-AG 4TH GENERATION (12/14/2020 7:58 AM EST) RESULT 4TH GEN HIV AB-AG NEGATIVE (NEG) [facility] Comment: Negative for antibodies to HIV 1 and HIV 2 and P24 antigen. Reference range: Negative Additional note: Written patient authorization is required for each separate release of this test result. This test was performed on the [employer] Gl[employer] Shaper immunoassay system. 12/14/2020 7:58 AM EST Shilpa Paul [address] MAGISTRATE LAB BLOOD ORDERABLES Final Re sult Performing Organization Address [facility] de Phone Number [facility] [address] from Last 3 Months or Most Recently Relevant to Health Maintenance Insurance MEDICARE [facility] Advance Directives Documents on File Type Date Recorded Patient Welder Production Line Gas Expl anation HealthCare Proxy 10/24/2023 12:48 PM HCP Care Teams Staff Mechanical Engineer Relationship Specialty Start Date End Date Lei Thacker Health Navigator 09/17/24
--- OUTSIDE RECORDS SUMMARY | 2025-07-29 15:10 | XMS_ITS | Patient Health Record ---
Author Organization [facility] [facility] Address [address] [place] [address] Care Team Providers Care Variety Saw Operator Name Role Phone Laisha Castañeda Unavailable [phone] Reason For Referral No Information Medications Medication SIG (Take, Route, Frequency, Duration) Notes Start Date End Date Status Viibryd 40MG ORAL; Duration: -3 [facility] 04/28/2014 Active Vitamin D3 1000 IU ORAL daily; Duration: - [facility] 2013 Active Aspirin EC 81MG 1 ORAL daily; Durati on: - [facility] [place] 04/28/2014 Active Nebulizer ORAL; Duration: - [facility] [place] 04/28/2014 Active oxyCODONE HCl 5MG ORAL; Duration: - [facility] [place] 04/28/2014 Active Pravastatin Sodium 20MG 1 ORAL daily; Du ration: - [facility] [place] 04/28/2014 Active Singulair 10MG ORAL; Duration: - [facility] [place] 04/28/2014 Active Combivent 103-18 2 INHALE four times daily; Duration: - [facility] [place] 04/28/2014 Active KlonoPIN 0.5MG ORAL four times shannon y; Duration: [facility] 04/28/2014 Active Levothyroxine Sodium 125MCG 1 ORAL daily ; Duration: - [facility] 04/28/2014 Active metFORMIN HCl ER 500MG ORAL; Duration: - [facility] [place] 04/28/20 14 Active Problems Problem Type SNOMED Code ICD Code Onset Dates Problem Status W/U Status Risk Notes Problem Hypothyroidism (22795940) Unspecified hypothyroidism (244.9) Active confirmed Problem Type II diabetes mellitus without complication (290707185) Diabetes mellitus without mention of complication, type II or unspecified type, not stated as uncontrolled (250.00) Active confirmed Problem Pure hypercholesterolemia (227896194) Pure hypercholesterolemia (272.0) Active confirmed Problem Morbid obesity (586006362) Morbid obesity (278.01) Active confirmed Problem Schizoaffective disorder (24795048) Schizoaffective disorder, unspecified (295.70) Active confirmed Problem Panic disorder with agoraphobia (86999045) Agoraphobia with panic disorder (300.21) Active confirmed Problem Obsessive-compulsive disorder (477138096) Obsessive-compulsive disorders (300.3) Active confirmed Problem Posttraumatic stress disorder (73668856) Posttraumatic stress disorder (309.81) Active confirmed Problem Attention deficit hyperactivity disorder (254323370) 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) Active confirmed Problem Migraine (disorder) (46264792) Migraine, unspecified without mention of intractable migraine without mention of status migrainosus (346.90) Active confirmed Problem Asthma (disorder) (659203091) Asthma, unspecified, unspecified status (493.90) Active confirmed Problem Sleep apnea (00883294) Unspecified sleep apnea (780.57) Active confirmed Problem Hypertension (76715084) Hypertension (401.9) Active confirmed Plan Of Treatment No Information Insurance Providers Payer Name Payer Address Payer Phone Subscriber Number Group Number Insured Name Patient Relationship to Insured Coverage Start Date Coverage End Date MEDICARE [address] [place] [id number] SEBASTIÁN GARCIA Self - patient is the [...]
--- OUTSIDE RECORDS SUMMARY | 2025-07-29 15:10 | XMS_ITS | Encounter Summary ---
Author Organization [employer] Address [address] [facility] 7t [place] [address] Care Team Providers Care Diagnostic Sales Specialist Name Role Phone Francheska Tucker MADELEINE Primary Care Provider [phone] Lei Thacker Unavailable Unavailable Sharmila Azar DO Primary Care Provider [phone] Inactive/Transferred Primary Care Provider Unava ilable Encounter Details Date Type Department Care Team (Late st Contact Info) Description 12/19/2023 Orders Only [facility] MEDICAL [address] [place] [address] Provider, MD Sharad Social History Tobacco Use [...] on filedocumented in this encounter Care Teams Diagnostic Sales Specialist Relationship Specialty Start Date End Date Francheska Tucker FNP [address] [place] [address] PCP - General Family Medicine 10/25/23 11/01/24 Sharmila Azar DO [address] [place] [address] PCP - General Family Medicine 11/02/24 06/17/25 Inactive/Transferred PCP - General 06/18/25 06/18/25 Lei Thacker Health Navigator 09/17/24 documented as of this encounter
--- OUTSIDE RECORDS SUMMARY | 2025-07-29 15:10 | XMS_ITS | Encounter Summary ---
Author Organization [employer] Address [address] [place] [address] 7t [place] [address] Care Team Providers Care Tank Setter Helper Name Role Phone Lei Thacker Unavailable Unavailable Sharmila Azar DO Primary Care Provider [phone] Inactive/Transferred Primary Care Provider Unava ilable Reason for Visit * Reason Onset Date Comments Med Refill 01/31/2025 Encounter Details Date Type Department Care Team (Late st Contact Info) Description 01/31/2025 Refill Pat [facility] MEDICAL [address] [place] [address] Francheska Tucker FNP [address] [place] [address] Essential (primary) hypertension Social History Tobacco Use [...] documented as of this encounter Care Teams Tank Setter Helper Relationship Specialty Start Date End Date Sharmila Azar DO [address] [place] [address] PCP - General Family Medicine 11/02/24 06/17/25 Inactive/Transferred PCP - General 06/18/25 06/18/25 Lei Thacker Health Navigator 09/17/24 documented as of this encounter
--- OUTSIDE RECORDS SUMMARY | 2025-07-29 15:10 | XMS_ITS | Encounter Summary ---
Author Organization [employer] Address [address] [place] [address] 7 [place] [address] Care Team Providers Care Disk Operator Name Role Phone Lei Thacker Unavailable Unavailable Sharmila Azar DO Primary Care Provider Inactive/Transferred Primary Care Provider Unava ilable Reason for Visit * Reason Comments Med Change Request Encounter Details Date Type Department Care Team (Late st Contact Info) Description 01/26/2025 Oneyda Stewart [facility] MEDICAL [address] [place] [address] Sharmila Azar DO [address] [place] [address] Type 2 diabetes mellitus with diabetic polyneuropathy, with long-term current use of insulin ([facility]) Social History Tobacco Use Types [...] long-term current use of insulin ([facility]) documented in this encounter Additional Health Concerns Assessment Noted Time PHQ-9 Depression Total Score: 10 024 7:39 AM EST documented as of this encounter Care Teams Disk Operator Relationship Specialty Start Date End Date Sharmila Azar [address] [place] [address] PCP - General Family Medicine 11/02/24 06/17/25 Inactive/Transferred PCP - General 06/18/25 06/18/25 Lei Thacker Health Navigator 09/17/24 documented as of this encounter
--- OUTSIDE RECORDS SUMMARY | 2025-07-29 15:10 | XMS_ITS | Encounter Summary ---
Author Organization [employer] Address [address] [place] [address] 7t [place] [address] Care Team Providers Care Hot Roll Laminator Name Role Phone Lei Thacker Unavailable Unavailable Sharmila Azar DO Primary Care Provider [phone] Inactive/Transferred Primary Care Provider Unava ilable Reason for Visit * Reason Comments Med Change Request Encounter Details Date Type Department Care Team (Late st Contact Info) Description 12/25/2024 Oneyda Stewart [facility] MEDICAL [address] [place] [address] Sharmila Azar DO [address] [place] [address] Mild intermittent asthma without complication Social History [...] documented as of this encounter Care Teams Hot Roll Laminator Relationship Specialty Start Date End Date Sharmila Azar DO [address] [place] [address] PCP - General Family Medicine 11/02/24 06/17/25 Inactive/Transferred PCP - General 06/18/25 06/18/25 Lei Thacker Health Navigator 09/17/24 documented as of this encounter
--- OUTSIDE RECORDS SUMMARY | 2025-07-29 15:10 | XMS_ITS | Encounter Summary ---
Author Organization [employer] Address [address] [place] [address] 7t [place] [address] Care Team Providers Care Virtualization Consultant Name Role Phone Francheska Tucker Primary Care Provider Lei Thacker Unavailable Unavailable Sharmila Azar DO Primary Care Provider [phone] Inactive/Transferred Primary Care Provider Unava ilable Encounter Details Date Type Department Care Team (Late st Contact Info) Description 07/04/2024 Orders Only [place] [facility] MEDICAL [address] [place] [address] Francheska Tucker FNP [address] [place] [address] Social History Tobacco Use Types Packs/Day Years [...] documented as of this encounter Care Teams Virtualization Consultant Relationship Specialty Start Date End Date Francheska Tucker FNP [address] [facility] [place] [address] PCP - General Family Medicine 10/25/23 11/01/24 Sharmila Azar DO [address] [facility] [place] [address] PCP - General Family Medicine 11/02/24 06/17/25 Inactive/Transferred PCP - General 06/18/25 06/18/25 Lei Thacker Health Navigator 09/17/24 documented as of this encounter
--- OUTSIDE RECORDS SUMMARY | 2025-07-29 15:10 | XMS_ITS | Encounter Summary ---
Author Organization [employer] Address [address] [facility] 7t [place] [address] Care Team Providers Care Garden Center Manager Name Role Phone Francheska Tucker Primary Care Provider [phone] Lei Thacker Unavailable Unavailable Sharmila Azar DO Primary Care Provider [phone] Inactive/Transferred Primary Care Provider Unava ilable Reason for Visit * Reason Comments Med Change Request Encounter Details Date Type Department Care Team (Late st Contact Info) Description 2024 Oneyda Stewart [facility] MEDICAL [address] [place] [address] Francheska Tucker FNP [address] [place] [address] Type 2 diabetes mellitus with diabetic polyneuropathy, with long-term current use of insulin ([facility]) Social History Tobacco Use Types Packs/Day [...] polyneuropathy, with long-term current use of insulin ([facility]) documented in this encounter Additional Health Concerns Assessment Noted Time PHQ-9 Depression Total Score: 20 024 7:38 AM EDT documented as of this encounter Care Teams Garden Center Manager Relationship Specialty Start Date End Date Francheska Tucker FNP [address] [place] [address] PCP - General Family Medicine 10/25/23 11/01/24 Sharmila Azar DO [address] [facility] [place] [address] PCP - General Family Medicine 11/02/24 06/17/25 Inactive/Transferred PCP - General 06/18/25 06/18/25 Lei Thacker Health Navigator 09/17/24 documented as of this encounter
--- OUTSIDE RECORDS SUMMARY | 2025-07-29 15:10 | XMS_ITS | Encounter Summary ---
Author Organization [employer] Address [address] [place] [address] 7 [place] [address] Care Team Providers Care Petal Shaper Hand Name Role Phone Lei Thacker Unavailable Unavailable Sharmila Azar DO Primary Care Provider [phone] Inactive/Transferred Primary Care Provider Unava ilable Reason for Visit * Reason Onset Date Comments Med Refill 12/24/2024 Encounter Details Date Type Department Care Team (Late st Contact Info) Description 12/24/2024 Refill [place] [facility] MEDICAL [address] [place] [address] Sharmila Azar DO [address] [place] [address] Anxiety; PTSD (post-traumatic stress disorder) Social History [...] documented as of this encounter Care Teams Petal Shaper Hand Relationship Specialty Start Date End Date Sharmila Azar DO [address] [place] [address] PCP - General Family Medicine 11/02/24 06/17/25 Inactive/Transferred PCP - General 06/18/25 06/18/25 Lei Thacker Health Navigator 09/17/24 documented as of this encounter
--- OUTSIDE RECORDS SUMMARY | 2025-07-29 15:10 | XMS_ITS | Encounter Summary ---
Author Organization [employer] Address [address] [place] [address] 7t [place] [address] Care Team Providers Care Tool/Die Maker Name Role Phone Francheska Tucker MADELEINE Primary Care Provider [phone] Lei Thacker Unavailable Unavailable Sharmila Azar DO Primary Care Provider [phone] Inactive/Transferred Primary Care Provider Unava ilable Reason for Visit * Reason Comments Med Change Request Encounter Details Date Type Department Care Team (Late st Contact Info) Description 01/14/2024 Onedya Stewart [facility] MEDICAL [address] [place] [address] Shilpa Miller, AIRPLANE CABIN ATTENDANT [address] [place] [address] Type 2 diabetes mellitus with diabetic polyneuropathy, with long-term current use of insulin ([facility]) Social History Tobacco Use Types [...] was filled out yesterday and faxed to [employer] there was another TE on this. documented in this encounter Plan of Treatment Not on file documented as of this encounter Visit Diagnoses Diagnosis Type 2 diabetes mellitus with diabetic polyneuropathy, with long-term current use of insulin ([facility]) documented in this encounter Care Teams Tool/Die Maker Relationship Specialty Start Date End Date Francheska Tucker FNP [address] [place] [address] PCP - General Family Medicine 10/25/23 11/01/24 Sharmila Azar DO [address] [place] [address] PCP - General Family Medicine 11/02/24 06/17/25 Inactive/Transferred PCP - General 06/18/25 06/18/25 Lei Thacker Health Navigator 09/17/24 documented as of this encounter
--- OUTSIDE RECORDS SUMMARY | 2025-07-29 15:10 | XMS_ITS | Encounter Summary ---
Author Organization [employer] [facility] [employer] Address [address] [place] [address] 7 [place] [address] Care Team Providers Care Bridge/Structure Inspection Team Leader Name Role Phone Shilpa Miller CNP Primary Care Provider Francheska Tucker Primary Care Provider [phone] Lei Thacker Unavailable Unavailable Sharmila Azar DO Primary Care Provider Inactive/Transferred Primary Care Provider Unava ilable Reason for Visit * Reason Comments Med Refill Encounter Details Date Type Department Care Team (Late st Contact Info) Description 07/25/2023 Refill Pat [facility] MEDICAL [address] [place] [address] Shilpa Miller CNP [address] [place] [address] Hypothyroidism, unspecified Social History Tobacco Use Types [...] unspecified documented in this encounter Care Teams Bridge/Structure Inspection Team Leader Relationship Specialty Start Date End Date Shilpa Miller CNP [address] [place] [address] PCP - General Family Medicine 10/16/22 10/24/23 Francheska Tucker FNP [address] [place] [address] PCP - General Family Medicine 10/25/23 11/01/24 Sharmila Azar DO [address] [place] [address] PCP - General Family Medicine 11/02/24 06/17/25 Inactive/Transferred PCP - General 06/18/25 06/18/25 Lei Thacker Health Navigator 09/17/24 documented as of this encounter
--- OUTSIDE RECORDS SUMMARY | 2025-07-29 15:10 | XMS_ITS | Encounter Summary ---
Author Organization [employer] Address [address] [facility] 7t [place] [address] Care Team Providers Care Clam Bed Laborer Name Role Phone Lei Thacker Unavailable Unavailable Sharmila Azar DO Primary Care Provider [phone] Inactive/Transferred Primary Care Provider Unava ilable Reason for Visit * Reason Onset Date Comments Med Refill 02/09/2025 Encounter Details Date Type Department Care Team (Late st Contact Info) Description 02/09/2025 Refill Pat [facility] MEDICAL [address] [place] [address] Francheska Tucker FNP [address] [place] [address] Type 2 diabetes mellitus with diabetic polyneuropathy [...] documented as of this encounter Care Teams Clam Bed Laborer Relationship Specialty Start Date End Date Sharmila Azar DO [address] [place] [address] PCP - General Family Medicine 11/02/24 06/17/25 Inactive/Transferred PCP - General 06/18/25 06/18/25 Lei Thacker Health Navigator 09/17/24 documented as of this encounter
--- OUTSIDE RECORDS SUMMARY | 2025-07-29 15:10 | XMS_ITS | Encounter Summary ---
Author Organization [email or web address] Address [address] [place] [address] 7t [place] [address] Care Team Providers Care Salesperson Fashion Accessories Name Role Phone Shilpa Miller CNP Primary Care Provider [phone] Francheska Tucker Primary Care Provider [phone] Lei Thacker Unavailable Unavailable Sharmila Azar DO Primary Care Provider [phone] Inactive/Transferred Primary Care Provider Unava ilable Encounter Details Date Type Department Care Team (Late st Contact Info) Description 01/31/2023 Abstract Pat [facility] MEDICAL [address] [place] [address] Shilpa Miller CNP [address] [place] [address] Social History Tobacco Use Types Packs/Day Years [...] on filedocumented in this encounter Care Teams Salesperson Fashion Accessories Relationship Specialty Start Date End Date Shilpa Miller CNP [address] [place] [address] PCP - General Family Medicine 10/16/22 10/24/23 Francheska Tucker FNP [address] [place] [address] PCP - General Family Medicine 10/25/23 11/01/24 Sharmila Azar DO [address] [place] [address] PCP - General Family Medicine 11/02/24 06/17/25 Inactive/Transferred PCP - General 06/18/25 06/18/25 Lei Thacker Health Navigator 09/17/24 documented as of this encounter
--- OUTSIDE RECORDS SUMMARY | 2025-07-29 15:10 | XMS_ITS | Encounter Summary ---
Author Organization [employer] Address [address] [place] [address] 7t [place] [address] Care Team Providers Care Reconditioner Name Role Phone Francheska Tucker MADELEINE Primary Care Provider [phone] Lei Thacker Unavailable Unavailable Sharmila Azar DO Primary Care Provider [phone] Inactive/Transferred Primary Care Provider Unava ilable Reason for Visit * Reason Comments Med Change Request Encounter Details Date Type Department Care Team (Late st Contact Info) Description 05/12/2024 Oneyda Stewart [facility] MEDICAL [address] [place] [address] Shilpa Miller CNP [address] [place] [address] Psychophysiological insomnia Social History Tobacco Use Types [...] documented as of this encounter Care Teams Reconditioner Relationship Specialty Start Date End Date Francheska Tucker FNP [address] [place] [address] PCP - General Family Medicine 10/25/23 11/01/24 Sharmila Azar DO [address] [place] [address] PCP - General Family Medicine 11/02/24 06/17/25 Inactive/Transferred PCP - General 06/18/25 06/18/25 Lei Thacker Health Navigator 09/17/24 documented as of this encounter
--- OUTSIDE RECORDS SUMMARY | 2025-07-29 15:10 | XMS_ITS | Encounter Summary ---
Author Organization [employer] Address [address] [place] [address] 7 [place] [address] Care Team Providers Care Interventional Neuroradiologist Name Role Phone Lei Thacker Unavailable Unavailable Reason for Visit * Reason Onset Date Comments [employer] 07/10/2025 Phone Number # [phone] Number # [phone] Encounter Details Date Type Department Care Team (Late st Contact Info) Description 07/10/2025 Telephone Pat [facility] MEDICAL [address] [place] [id number] Pcp, Pat Unassigned [employer] (Phone Number # [phone]/ ) Social History Tobacco Use Types Packs/Day [...] t he electric, gas, oil or water linkedü threatened to shut off services in your [...] 07/24/2025 8:46 AM EDT Hema sent a At[employer] message yesterday stating she spoke to Britt the classified advertising supervisor at [employer] and [facility] her Pull ups and it [...] morning stating she spoke to Britt from [employer] a classified advertising supervisor to see where the status of the PA was at Britt told her it was sent to [facility] and it can take up to 14 days for [facility] hopefully it does not take that long for approval. [employer] did state if they needed any [...] time, to see if this gets through [facility] and uploaded to her chart at [employer] and [employer] supplies can be shipped. * Telephone Encounter - PJ Blackwood - 07/20/2025 1:07 PM EDT I called out to [employer]. The first solar sales manager I spoke to was Da he was [...] good as she transferred me to her classified advertising supervisor named Mayi whom was very nice [...] explain to me that [facility] I did let her know [...] before it sent to the insurance com [facility] as they told her yesterday on 07/09/25 [...] system that she spoke to us the [facility] krishan Bergeron calls back there and its documented that we spoke on the phone together. documented in this encounter Plan of Treatment Not on file documented as of this encounter Visit Diagnoses Not on filedocumented in this encounter Additional Health Concerns Assessment Noted Time PHQ-9 Depression Total Score: 6 06/22/20 25 2:22 PM EDT documented as of this encounter Care Teams Interventional Neuroradiologist Relationship Specialty Start Date End Date Lei Thacker Health Navigator 09/17/24 documented as of this encounter
--- OUTSIDE RECORDS SUMMARY | 2025-07-29 15:11 | XMS_ITS | Encounter Summary ---
Author Organization [employer] Address [address] [place] [address] 7 [place] [address] Care Team Providers Care Small Arms Repairer Name Role Phone Shilpa Miller CNP Primary Care Provider [phone] Francheska Tucker Primary Care Provider [phone] Lei Thacker Unavailable Unavailable Sharmila Azar DO Primary Care Provider [phone] Inactive/Transferred Primary Care Provider Unava ilable Encounter Details Date Type Department Care Team (Late st Contact Info) Description 11/30/2022 Abstract [place] [facility] MEDICAL [address] [place] [address] Shilpa Miller CNP [address] [place] [address] Social History Tobacco Use Types Packs/Day Years [...] on filedocumented in this encounter Care Teams Small Arms Repairer Relationship Specialty Start Date End Date Shilpa Miller CNP [address] [place] [address] PCP - General Family Medicine 10/16/22 10/24/23 Francheska Tucker FNP [address] [place] [address] PCP - General Family Medicine 10/25/23 11/01/24 Sharmila Azar DO [address] [place] [address] PCP - General Family Medicine 11/02/24 06/17/25 Inactive/Transferred PCP - General 06/18/25 06/18/25 Lei Thacker Health Navigator 09/17/24 documented as of this encounter
--- OUTSIDE RECORDS SUMMARY | 2025-07-29 15:11 | XMS_ITS | Encounter Summary ---
Author Organization [employer] Address [address] [place] [address] 7 [place] [address] Care Team Providers Care Install Technician Name Role Phone Shilpa Miller CNP Primary Care Provider [phone] Francheska Tucker Primary Care Provider [phone] Lei Thacker Unavailable Unavailable Sharmila Azar DO Primary Care Provider [phone] Inactive/Transferred Primary Care Provider Unava ilable Encounter Details Date Type Department Care Team (Late st Contact Info) Description 11/30/2022 Abstract [place] [facility] [address] [place] [address] Shilpa Miller CNP 73 [place] [address] Social History Tobacco Use Types Packs/Day Years [...] on filedocumented in this encounter Care Teams Install Technician Relationship Specialty Start Date End Date Shilpa Miller CNP [address] [place] [address] PCP - General Family Medicine 10/16/22 10/24/23 Francheska Tucker FNP [address] [place] [address] PCP - General Family Medicine 10/25/23 11/01/24 Sharmila Azar DO [address] [place] [address] PCP - General Family Medicine 11/02/24 06/17/25 Inactive/Transferred PCP - General 06/18/25 06/18/25 Lei Thacker Health Navigator 09/17/24 documented as of this encounter
--- OUTSIDE RECORDS SUMMARY | 2025-07-29 15:11 | XMS_ITS | Encounter Summary ---
Author Organization [employer] Address [address] [place] [address] 7t [place] [address] Care Team Providers Care Practice Clinician Name Role Phone Francheska Tucker MADELEINE Primary Care Provider [phone] Lei Thacker Unavailable Unavailable Sharmila Azar DO Primary Care Provider Inactive/Transferred Primary Care Provider Unava ilable Reason for Visit * Reason Comments Med Change Request Encounter Details Date Type Department Care Team (Late st Contact Info) Description 01/16/2024 Oneyda Stewart [facility] [address] [place] [address] Amira Singh FNP Social History Tobacco Use [...] RX filled out yesterday and faxed to [facility] documented in this encounter Plan of Treatment Not on file documented as of this encounter Visit Diagnoses Not on filedocumented in this encounter Care Teams Practice Clinician Relationship Specialty Start Date End Date Francheska Tucker FNP [address] [place] [address] PCP - General Family Medicine 10/25/23 11/01/24 Sharmila Azar DO 73 [place] [address] PCP - General Family Medicine 11/02/24 06/17/25 Inactive/Transferred PCP - General 06/18/25 06/18/25 Lei Thacker Health Navigator 09/17/24 documented as of this encounter
--- OUTSIDE RECORDS SUMMARY | 2025-07-29 15:11 | XMS_ITS | Encounter Summary ---
Author Organization [employer] Address 75 [facility] 7t [place] [address] Care Team Providers Care Client Administrator Name Role Phone Lei Thacker Unavailable Unavailable Sharmila Azar DO Primary Care Provider [phone] Inactive/Transferred Primary Care Provider Unava ilable Encounter Details Date Type Department Care Team (Late st Contact Info) Description 11/21/2024 Orders Only [facility] [address] [place], [place] [id number] Provider, MD Sharad Social History Tobacco Use [...] documented as of this encounter Care Teams Client Administrator Relationship Specialty Start Date End Date Sharmila Azar DO 73 [place] [address] PCP - General Family Medicine 11/02/24 06/17/25 Inactive/Transferred PCP - General 06/18/25 06/18/25 Lei Thacker Health Navigator 09/17/24 documented as of this encounter
--- OUTSIDE RECORDS SUMMARY | 2025-07-29 15:11 | XMS_ITS | Encounter Summary ---
Author Organization [employer] Address [address] [place] [address] 7 [place] [address] Care Team Providers Care Sales Account Specialist Name Role Phone Shilpa Miller CNP Primary Care Provider [phone] Francheska Tucker Primary Care Provider [phone] Lei Thacker Unavailable Unavailable Sharmila Azar DO Primary Care Provider [phone] Inactive/Transferred Primary Care Provider Unava ilable Encounter Details Date Type Department Care Team (Late st Contact Info) Description 10/27/2022 Abstract Pat [facility] [address] [place] [address] Shilpa Miller CNP 73 [facility] [place] [address] Social History Tobacco Use Types Packs/Day Years [...] on filedocumented in this encounter Care Teams Sales Account Specialist Relationship Specialty Start Date End Date Shilpa Miller CNP [address] [place] [address] PCP - General Family Medicine 10/16/22 10/24/23 Francheska Tucker FNP [address] [place] [address] PCP - General Family Medicine 10/25/23 11/01/24 Sharmila Azar DO 73 [facility] [place] [address] PCP - General Family Medicine 11/02/24 06/17/25 Inactive/Transferred PCP - General 06/18/25 06/18/25 Lei Thacker Health Navigator 09/17/24 documented as of this encounter
--- OUTSIDE RECORDS SUMMARY | 2025-07-29 15:11 | XMS_ITS | Encounter Summary ---
Author Organization [employer] Address [address] [place] [address] 7 [place] [address] Care Team Providers Care Feltmaker And Weigher Name Role Phone Lei Thacker Unavailable Unavailable Sharmila Azar DO Primary Care Provider [phone] Inactive/Transferred Primary Care Provider Unava ilable Reason for Visit * Reason Onset Date Comments Med Refill 11/27/2024 Encounter Details Date Type Department Care Team (Late st Contact Info) Description 11/27/2024 Refill [place] [facility] 73 [place] [address] Sharmila Azar DO 73 [place] [address] Anxiety; PTSD (post-traumatic stress disorder) Social History [...] documented as of this encounter Care Teams Feltmaker And Weigher Relationship Specialty Start Date End Date Sharmila Azar DO [address] [place] [address] PCP - General Family Medicine 11/02/24 06/17/25 Inactive/Transferred PCP - General 06/18/25 06/18/25 Lei Thacker Health Navigator 09/17/24 documented as of this encounter
--- OUTSIDE RECORDS SUMMARY | 2025-07-29 15:11 | XMS_ITS | Encounter Summary ---
Author Organization [employer] Address [address] [place] [address] 7t [place] [address] Care Team Providers Care Body And Fender Worker Name Role Phone Francheska Tucker MADELEINE Primary Care Provider [phone] Lei Thacker Unavailable Unavailable Sharmila Azar DO Primary Care Provider Inactive/Transferred Primary Care Provider Unava ilable Reason for Visit * Reason Comments Med Refill Encounter Details Date Type Department Care Team (Late st Contact Info) Description 03/21/2024 Refill Pat [facility] [address] [place] [address] Shilpa Miller, 3RD GRADE TEACHER [address] [place] [address] Type 2 diabetes mellitus with diabetic polyneuropathy, with long-term current use of insulin ([facility]) Social History Tobacco Use Types Packs/Day Years [...] polyneuropathy, with long-term current use of insulin ([facility]) documented in this encounter Additional Health Concerns Assessment Noted Time PHQ-9 Depression Total Score: 24 024 3:40 PM EDT documented as of this encounter Care Teams Body And Fender Worker Relationship Specialty Start Date End Date Francheska Tucker FNP 73 [facility] [place] [address] PCP - General Family Medicine 10/25/23 11/01/24 Sharmila Azar DO 73 [place] [address] PCP - General Family Medicine 11/02/24 06/17/25 Inactive/Transferred PCP - General 06/18/25 06/18/25 Lei Thacker Health Navigator 09/17/24 documented as of this encounter
--- OUTSIDE RECORDS SUMMARY | 2025-07-29 15:11 | XMS_ITS | Encounter Summary ---
Author Organization [employer] Address [address] [place] [address] 7 [place] [address] Care Team Providers Care Automation Control Technician Name Role Phone Lei Thacker Unavailable Unavailable Sharmila Azar DO Primary Care Provider [phone] Inactive/Transferred Primary Care Provider Unava ilable Reason for Visit * Reason Comments Med Refill Encounter Details Date Type Department Care Team (Late st Contact Info) Description 11/09/2024 Refill Pat [facility] 73 [place] [address] Francheska Tucker FNP 73 [place] [address] Acquired hypothyroidism Social History Tobacco Use Types [...] documented as of this encounter Care Teams Automation Control Technician Relationship Specialty Start Date End Date Sharmila AzarDO 73 [place] [address] PCP - General Family Medicine 11/02/24 06/17/25 Inactive/Transferred PCP - General 06/18/25 06/18/25 Lei Thacker Health Navigator 09/17/24 documented as of this encounter
--- OUTSIDE RECORDS SUMMARY | 2025-07-29 15:11 | XMS_ITS | Encounter Summary ---
Author Organization [employer] Address [address] [place] [address] 7t [place] [address] Care Team Providers Care Hospital Fellow Name Role Phone Lei Thacker Unavailable Unavailable Sharmila Azar DO Primary Care Provider [phone] Inactive/Transferred Primary Care Provider Unava ilable Reason for Visit * Reason Onset Date Comments Med Refill 11/05/2024 Encounter Details Date Type Department Care Team (Late st Contact Info) Description 11/05/2024 Refill [place] [facility] [address] [place] [address] Shilpa Miller, MARIA C [address] [place] [address] Type 2 diabetes mellitus with diabetic polyneuropathy ([facility]/HCC) Social History Tobacco Use Types Packs/Day Years [...] documented as of this encounter Care Teams Hospital Fellow Relationship Specialty Start Date End Date Sharmila Azar DO [address] [place] [address] PCP - General Family Medicine 11/02/24 06/17/25 Inactive/Transferred PCP - General 06/18/25 06/18/25 Lei Thacker Health Navigator 09/17/24 documented as of this encounter
--- OUTSIDE RECORDS SUMMARY | 2025-07-29 15:11 | XMS_ITS | Encounter Summary ---
Author Organization [employer] Address [address] [place] [address] 7t [place] [address] Care Team Providers Care Senior Billing Consultant Name Role Phone Shilpa Miller MARIA C Primary Care Provider [phone] Francheska Tucker Primary Care Provider [phone] Lei Thacker Unavailable Unavailable Sharmila Azar DO Primary Care Provider [phone] Inactive/Transferred Primary Care Provider Unava ilable Encounter Details Date Type Department Care Team (Late st Contact Info) Description 12/01/2022 Orders Only [facility] [address] [place] [address] Avelina Fulton FNP Type 2 diabetes mellitus with diabetic polyneuropathy, with long-term current use of insulin ([facility]) (Primary Dx) Social History Tobacco Use [...] polyneuropathy, with long-term current use of insulin ([facility])- Primary documented in this encounter Care Teams Senior Billing Consultant Relationship Specialty Start Date End Date Shilpa Miller CNP [address] [place] [address] PCP - General Family Medicine 10/16/22 10/24/23 Francheska Tucker FNP [address] [place] [address] PCP - General Family Medicine 10/25/23 11/01/24 Sharmila Azar DO [address] [place] [address] PCP - General Family Medicine 11/02/24 06/17/25 Inactive/Transferred PCP - General 06/18/25 06/18/25 Lei Thacker Health Navigator 09/17/24 documented as of this encounter
--- OUTSIDE RECORDS SUMMARY | 2025-07-29 15:11 | XMS_ITS | Encounter Summary ---
Author Organization [employer] Address [address] [place] [address] 7 [place] [address] Care Team Providers Care Dry Cleaning Teacher Name Role Phone Lei Thacker Unavailable Unavailable Sharmila Azar DO Primary Care Provider [phone] Inactive/Transferred Primary Care Provider Unava ilable Reason for Visit * Reason Onset Date Comments Med Refill 12/11/2024 Encounter Details Date Type Department Care Team (Late st Contact Info) Description 12/11/2024 Refill [place] [facility] [address] [place] [address] Sharmila Azar DO [address] [place] [address] Anxiety; PTSD (post-traumatic stress disorder) Social History [...] documented as of this encounter Care Teams Dry Cleaning Teacher Relationship Specialty Start Date End Date Sharmila Azar DO [address] [place] [address] PCP - General Family Medicine 11/02/24 06/17/25 Inactive/Transferred PCP - General 06/18/25 06/18/25 Lei Thacker Health Navigator 09/17/24 documented as of this encounter
--- OUTSIDE RECORDS SUMMARY | 2025-07-29 15:11 | XMS_ITS | Encounter Summary ---
Author Organization [employer] Address [address] [place] [address] 7t [place] [address] Care Team Providers Care Emergency Medical Service Manager Name Role Phone Lei Thacker Unavailable Unavailable Encounter Details Date Type Department Care Team (Late st Contact Info) Description 07/22/2025 Results Follow-Up [facility] [address] [place] [address] Sharmila Azar DO 73 [place] [address] TSH with Reflex to Free T4 [[id number]] Social History Tobacco Use Types Packs/Day Years [...] documented as of this encounter Care Teams Emergency Medical Service Manager Relationship Specialty Start Date End Date Lei Thacker Health Navigator 09/17/24 documented as of this encounter
--- OUTSIDE RECORDS SUMMARY | 2025-07-29 15:11 | XMS_ITS | Encounter Summary ---
Author Organization [email or web address] Address [address] [place] [address] 7 [place] [address] Care Team Providers Care Sales Account Executive Name Role Phone Shilpa Miller CNP Primary Care Provider [phone] Francheska Tucker Primary Care Provider [phone] Lei Thacker Unavailable Unavailable Sharmila Azar DO Primary Care Provider [phone] Inactive/Transferred Primary Care Provider Unava ilable Encounter Details Date Type Department Care Team (Late st Contact Info) Description 10/26/2022 Abstract Pat [facility] [address] [place] [address] Shilpa Miller CNP [address] [place] [address] Social History Tobacco Use Types Packs/Day Years [...] Results * (ABNORMAL) Hemoglobin A1c (06/28/2022) Pathologist [facility] Hemoglobin A1C 7.6(A) 4.0 - 6.0 % Blood Venous blood specimen / Unknown Historical Provider LAB BLOOD ORDERABLES Layla l Result * Lipid Panel, Standard (06/06/2022) Pathologist [facility] Triglycerides 98 40 - 160 mg/dL Cholesterol 138 0 - 200 mg/dL HDL Cholesterol 60 35 - 70 mg/dL LDL Cholesterol 58 mg/dL Blood Venous blood specimen / Unknown Historical Provider LAB BLOOD ORDERABLES Layla l Result * Mammography (12/25/2021) Pathologist [facility] Mammogram BI RADS: 2 Benign Anatomical Region Laterality Modality Other [facility] Provider HEALTH MAINTENANCE Final Result documented in this encounter Visit Diagnoses Not on filedocumented in this encounter Care Teams Sales Account Executive Relationship Specialty Start Date End Date Shilpa Miller CNP 73 [place] [address] PCP - General Family Medicine 10/16/22 10/24/23 Francheska Tucker FNP 73 [facility] [place] [address] PCP - General Family Medicine 10/25/23 11/01/24 Sharmila Azar DO 73 [place] [address] PCP - General Family Medicine 11/02/24 06/17/25 Inactive/Transferred PCP - General 06/18/25 06/18/25 Lei Thacker Health Navigator 09/17/24 documented as of this encounter
== END 2025-07-29 14:23 | disposition home or self-care (01) ==
LOC: HO.ENCR 12:42
PROVIDERS: PCP Nurse Practitioner Family; Visit Provider Student in an Organized Health Care Education/Training Program
DX: Z68.44 Body mass index [BMI] 60.0-69.9, adult (principal); E11.8 Type 2 diabetes mellitus with unspecified complications; E06.3 Autoimmune thyroiditis
CPT/HCPCS: 99205; G2211

== ENCOUNTER → 2025-07-29 12:41 | Outpatient (BNVA) | payer MEDICARE, MEDICAID, SELFPAY | PROVIDERS: PCP Nurse Practitioner Family; Visit Provider Student in an Organized Health Care Education/Training Program | DX: E11.8 Type 2 diabetes mellitus with unspecified complications (principal); Z79.4 Long term (current) use of insulin; Z68.44 Body mass index [BMI] 60.0-69.9, adult; E03.9 Hypothyroidism, unspecified | CPT/HCPCS: 82947; 99202 ==

== ENCOUNTER 2025-08-04 12:23 | Outpatient (REF) | payer MEDICARE, MEDICAID, SELFPAY ==
--- OUTSIDE RECORDS SUMMARY | 2025-08-04 13:27 | XMS_ITS | Encounter Summary ---
Author Organization [employer] Address [address] [place] [address] 7 [place] [address] Care Team Providers Care Electronic Prepress Operator Name Role Phone Lei Thacker Unavailable Unavailable Sharmila Azar DO Primary Care Provider [phone] Inactive/Transferred Primary Care Provider Unava ilable Reason for Visit * Reason Comments Med Refill Encounter Details Date Type Department Care Team (Late st Contact Info) Description 03/02/2025 Refill Pat [facility] [address] [place] [address] Sharmila Azar DO [address] [place] [address] Anxiety; PTSD (post-traumatic stress disorder) Social History [...] documented as of this encounter Care Teams Electronic Prepress Operator Relationship Specialty Start Date End Date Sharmila Azar DO [address] [place] [address] PCP - General Family Medicine 11/02/24 06/17/25 Inactive/Transferred PCP - General 06/18/25 06/18/25 Lei Thacker Health Navigator 09/17/24 documented as of this encounter
--- OUTSIDE RECORDS SUMMARY | 2025-08-04 13:27 | XMS_ITS | Encounter Summary ---
Author Organization [employer] Address [address] [place] [address] 7t [place] [address] Care Team Providers Care Asphalt Machine Operator Name Role Phone Francheska Tucker MADELEINE Primary Care Provider [phone] Lei Thacker Unavailable Unavailable Sharmila Azar DO Primary Care Provider [phone] Inactive/Transferred Primary Care Provider Unava ilable Encounter Details Date Type Department Care Team (Late st Contact Info) Description 06/25/2024 Orders Only [facility] MED[facility] [address] [place] [address] Provider, MD Sharad Social History Tobacco Use [...] the past 12 months, has t he [employer], oil or water [email or web address] threatened to shut off services in your [...] documented as of this encounter Care Teams Asphalt Machine Operator Relationship Specialty Start Date End Date Francheska Tucker FNP 73 [place] [address] PCP - General Family Medicine 10/25/23 11/01/24 Sharmila Azar DO 73 [place] [address] PCP - General Family Medicine 11/02/24 06/17/25 Inactive/Transferred PCP - General 06/18/25 06/18/25 Lei Thacker Health Navigator 09/17/24 documented as of this encounter
--- OUTSIDE RECORDS SUMMARY | 2025-08-04 13:27 | XMS_ITS | Encounter Summary ---
Author Organization [employer] Address [address] [place] [address] 7 [place] [address] Care Team Providers Care Geodetic Advisor Name Role Phone Lei Thacker Unavailable Unavailable Sharmila Azar DO Primary Care Provider [phone] Inactive/Transferred Primary Care Provider Unava ilable Reason for Visit * Reason Comments Med Change Request Encounter Details Date Type Department Care Team (Late st Contact Info) Description 03/06/2025 Oneyda Stewart [facility] [address] [place] [address] Sharmila Azar DO [address] [place] [address] Type 2 diabetes mellitus with diabetic polyneuropathy, with long-term current use of insulin ([facility]) Social History Tobacco Use Types [...] polyneuropathy, with long-term current use of insulin (HCC) documented in this encounter Additional Health Concerns Assessment Noted Time PHQ-9 Depression Total Score: 10 024 7:39 AM EST documented as of this encounter Care Teams Geodetic Advisor Relationship Specialty Start Date End Date Sharmila Azar DO [address] [place] [address] PCP - General Family Medicine 11/02/24 06/17/25 Inactive/Transferred PCP - General 06/18/25 06/18/25 Lei Thacker Health Navigator 09/17/24 documented as of this encounter
--- OUTSIDE RECORDS SUMMARY | 2025-08-04 13:27 | XMS_ITS | Encounter Summary ---
Author Organization [employer] Address 75 [facility] 7t [place] [address] Care Team Providers Care Cryogenic Transport Driver Name Role Phone Francheska Tucker Primary Care Provider [phone] Lei Thacker Unavailable Unavailable Sharmila Azar DO Primary Care Provider [phone] Inactive/Transferred Primary Care Provider Unava ilable Reason for Visit * Reason Comments Med Change Request Encounter Details Date Type Department Care Team (Late st Contact Info) Description 2024 Oneyda Stewart [facility] [address] [place] [address] Francheska Tucker FNP [address] [place] [address] Type 2 diabetes mellitus with diabetic polyneuropathy, with long-term current use of insulin ([facility]) Social History [...] documented as of this encounter Care Teams Cryogenic Transport Driver Relationship Specialty Start Date End Date Francheska Tucker FNP 73 [place] [address] PCP - General Family Medicine 10/25/23 11/01/24 Sharmila Azar DO 73 [place] [address] PCP - General Family Medicine 11/02/24 06/17/25 Inactive/Transferred PCP - General 06/18/25 06/18/25 Lei Thacker Health Navigator 09/17/24 documented as of this encounter
--- OUTSIDE RECORDS SUMMARY | 2025-08-04 13:27 | XMS_ITS | Encounter Summary ---
Author Organization [employer] Address [address] [place] [address] 7t [place] [address] Care Team Providers Care Impregnator Carbon Products Name Role Phone Francheska Tucker MADELEINE Primary Care Provider [phone] Lei Thacker Unavailable Unavailable Sharmila Azar DO Primary Care Provider Inactive/Transferred Primary Care Provider Unava ilable Reason for Visit * Reason Onset Date Comments Med Refill 05/21/2024 Encounter Details Date Type Department Care Team (Late st Contact Info) Description 05/21/2024 Refill Pat [facility] [address] [place] [address] Shilpa Miller, MARIA C [address] [place] [address] Type 2 diabetes mellitus with diabetic polyneuropathy, with long-term current use of insulin ([facility]) Social History Tobacco Use Types Packs/Day Years [...] VM I am going to send a [employer] message. documented in this encounter Plan of Treatment Not on file documented as of this encounter Visit Diagnoses Diagnosis Type 2 diabetes mellitus with diabetic polyneuropathy, with long-term current use of insulin (HCC) documented in this encounter Additional Health Concerns Assessment Noted Time PHQ-9 Depression Total Score: 20 024 7:38 AM EDT documented as of this encounter Care Teams Impregnator Carbon Products Relationship Specialty Start Date End Date Francheska Tucker FNP 73 [facility] [place] [address] PCP - General Family Medicine 10/25/23 11/01/24 Sharmila Azar DO 73 [facility] [place] [address] PCP - General Family Medicine 11/02/24 06/17/25 Inactive/Transferred PCP - General 06/18/25 06/18/25 Lei Thacker Health Navigator 09/17/24 documented as of this encounter
--- OUTSIDE RECORDS SUMMARY | 2025-08-04 13:27 | XMS_ITS | Encounter Summary ---
Author Organization [employer] Address [address] [place] [address] 7 [place] [address] Care Team Providers Care Pet Care Associate Name Role Phone Lei Thacker Unavailable Unavailable Sharmila Azar DO Primary Care Provider [phone] Inactive/Transferred Primary Care Provider Unava ilable Reason for Visit * Reason Onset Date Comments Med Refill 02/18/2025 Encounter Details Date Type Department Care Team (Late st Contact Info) Description 02/18/2025 Refill [place] [facility] [address] [place] [address] Sharmila Azar DO [address] [place] [address] Anxiety; PTSD (post-traumatic stress disorder) Social History [...] documented as of this encounter Care Teams Pet Care Associate Relationship Specialty Start Date End Date Sharmlia Azar DO [address] [place] [address] PCP - General Family Medicine 11/02/24 06/17/25 Inactive/Transferred PCP - General 06/18/25 06/18/25 Lei Thacker Health Navigator 09/17/24 documented as of this encounter
--- OUTSIDE RECORDS SUMMARY | 2025-08-04 13:27 | XMS_ITS | Encounter Summary ---
Author Organization [employer] Address [address] [facility] 7t [place] [address] Care Team Providers Care Hog Sawyer Name Role Phone Lei Thacker Unavailable Unavailable Sharmila Azar DO Primary Care Provider [phone] Inactive/Transferred Primary Care Provider Unava ilable Reason for Visit * Reason Onset Date Comments Med Refill 02/09/2025 Encounter Details Date Type Department Care Team (Late st Contact Info) Description 02/09/2025 Refill Pat [facility] [address] [place] [address] Francheska Tucker FNP [address] [place] [address] Type 2 diabetes mellitus with diabetic polyneuropathy [...] Type 2 diabetes mellitus with diabetic polyneuropathy (HCC) documented in this encounter Additional Health Concerns Assessment Noted Time PHQ-9 Depression Total Score: 10 024 7:39 AM EST documented as of this encounter Care Teams Hog Sawyer Relationship Specialty Start Date End Date Sharmila Azar DO [address] [place] [address] PCP - General Family Medicine 11/02/24 06/17/25 Inactive/Transferred PCP - General 06/18/25 06/18/25 Lei Thacker Health Navigator 09/17/24 documented as of this encounter
--- OUTSIDE RECORDS SUMMARY | 2025-08-04 13:27 | XMS_ITS | Encounter Summary ---
Author Organization [employer] Address [address] [facility] 7t [place] [address] Care Team Providers Care Claims Administrator Name Role Phone Francheska Tucker Primary Care Provider [phone] Lei Thacker Unavailable Unavailable Sharmila Azar DO Primary Care Provider [phone] Inactive/Transferred Primary Care Provider Unava ilable Reason for Visit * Reason Comments Med Change Request Encounter Details Date Type Department Care Team (Late st Contact Info) Description 05/26/2024 Oneyda Stewart [facility] [address] [place] [address] Francheska Tucker FNP [address] [place] [address] Type 2 diabetes mellitus with diabetic polyneuropathy, with long-term current use of insulin ([facility]) Social History Tobacco Use [...] documented as of this encounter Care Teams Claims Administrator Relationship Specialty Start Date End Date Francheska Tucker FNP [address] [place] [address] PCP - General Family Medicine 10/25/23 11/01/24 Sharmila Azar DO 73 [place] [address] PCP - General Family Medicine 11/02/24 06/17/25 Inactive/Transferred PCP - General 06/18/25 06/18/25 Lei Thacker Health Navigator 09/17/24 documented as of this encounter
--- OUTSIDE RECORDS SUMMARY | 2025-08-04 13:28 | XMS_ITS | Encounter Summary ---
Author Organization [employer] Address [address] [place] [address] 7t [place] [address] Care Team Providers Care Instrument Room Technician Name Role Phone Francheska Tucker Primary Care Provider Lei Thacker Unavailable Unavailable Sharmila Azar DO Primary Care Provider [phone] Inactive/Transferred Primary Care Provider Unava ilable Encounter Details Date Type Department Care Team (Late st Contact Info) Description 07/04/2024 Orders Only [facility] [address] [place] [address] Francheska Tucker FNP [address] [place] [address] Social History Tobacco Use Types Packs/Day Years [...] documented as of this encounter Care Teams Instrument Room Technician Relationship Specialty Start Date End Date Francheska Tucker FNP 73 [place] [address] PCP - General Family Medicine 10/25/23 11/01/24 Sharmila Azar DO [address] [facility] [place] [address] PCP - General Family Medicine 11/02/24 06/17/25 Inactive/Transferred PCP - General 06/18/25 06/18/25 Lei Thacker Health Navigator 09/17/24 documented as of this encounter
--- OUTSIDE RECORDS SUMMARY | 2025-08-04 13:28 | XMS_ITS | Encounter Summary ---
Author Organization [employer] Address [address] [facility] 7t [place] [address] Care Team Providers Care Billiard Table Assembler Name Role Phone Francheska Tucker MADELEINE Primary Care Provider [phone] Lei Thacker Unavailable Unavailable Sharmila Azar DO Primary Care Provider [phone] Inactive/Transferred Primary Care Provider Unava ilable Encounter Details Date Type Department Care Team (Late st Contact Info) Description 12/19/2023 Orders Only [facility] MEDICAL [address] [place] [address] Provider, MD Sharad Social History Tobacco Use [...] on filedocumented in this encounter Care Teams Billiard Table Assembler Relationship Specialty Start Date End Date Francheska Tucker FNP 73 [place] [place] [address] PCP - General Family Medicine 10/25/23 11/01/24 Sharmila Azar DO 73 [place] [address] PCP - General Family Medicine 11/02/24 06/17/25 Inactive/Transferred PCP - General 06/18/25 06/18/25 Lei Thacker Health Navigator 09/17/24 documented as of this encounter
--- OUTSIDE RECORDS SUMMARY | 2025-08-04 13:28 | XMS_ITS | Encounter Summary ---
Author Organization [employer] Address [address] [place] [address] 7t [place] [address] Care Team Providers Care Continuous Mining Machine Lode Miner Name Role Phone Lei Thacker Unavailable Unavailable Encounter Details Date Type Department Care Team (Late st Contact Info) Description 07/17/2025 Orders Only Pat [facility] [address] [place] [address] Sharmila Azar DO 73 [place] [address] Arthralgia of both knees (Primary Dx); Lymphedema; [...] the past 12 months, has t he [email or web address] gas, oil or water company threatened to [...] Expected: 07/23/2025 (Approximate), Expires: 07/23/2026 Blood culture [id number] Microbiology Routine Abnormal CBC ESR raised Expected: 07/23/2025, Expires: 07/23/2026 documented as of this encounter Procedures Procedure Name Priority Date/Time Associated Diagnosis Comments CBC WITH AUTO DIFFERENTIAL Routine 07/20/2025 9:20 AM EDT Arthralgia of both knees Lymphedema COMPREHENSIVE METABOLIC PANEL Routine 07/20/2025 9:20 AM EDT Arthralgia of both knees Lymphedema documented in this encounter Results * (ABNORMAL) Comprehensive Metabolic Panel [[id number]] (07/20/2025 9:20 AM EDT) Glucose 143(H) 70 [...] Narrative Resulting Agency Comment Performed at: - [address] [id number] Car Starter: Megan Curry MD, Phone: [phone] us Sharmila Azar DO LAB BLOOD ORDERABLES [...] Agency Comment Performed at: 01 - [facility] [address] [id number] Car Starter: Megan Curry MD, Phone: [phone] us Sharmila Azar DO LAB BLOOD ORDERABLES [...] documented as of this encounter Care Teams Continuous Mining Machine Lode Miner Relationship Specialty Start Date End Date Lei Thacker Health Navigator 09/17/24 documented as of this encounter
--- OUTSIDE RECORDS SUMMARY | 2025-08-04 13:28 | XMS_ITS | Encounter Summary ---
Author Organization [employer] Address [address] [facility] 7t [place] [address] Care Team Providers Care Legal Department Manager Name Role Phone Francheska Tucker Primary Care Provider [phone] Lei Thacker Unavailable Unavailable Sharmila Azar DO Primary Care Provider [phone] Inactive/Transferred Primary Care Provider Unava ilable Encounter Details Date Type Department Care Team (Late st Contact Info) Description 07/25/2024 Orders Only [facility] [address] [place] [address] Francheska Tucker FNP [address] [place] [address] Social History Tobacco Use Types Packs/Day Years [...] Blood Venous blood specimen / Unknown Result [facility] Francheska SALVADOR LAB BLOOD ORDERABLES Final [...] documented as of this encounter Care Teams Legal Department Manager Relationship Specialty Start Date End Date Francheska Tucker FNP 73 [place] [address] PCP - General Family Medicine 10/25/23 11/01/24 Sharmila Azar DO 73 [place] [address] PCP - General Family Medicine 11/02/24 06/17/25 Inactive/Transferred PCP - General 06/18/25 06/18/25 Lei Thacker Health Navigator 09/17/24 documented as of this encounter
--- OUTSIDE RECORDS SUMMARY | 2025-08-04 13:28 | XMS_ITS | Encounter Summary ---
Author Organization [employer] Address [address] [place] [address] 7 [place] [address] Care Team Providers Care Office Copy Selector Name Role Phone Shilpa Miller CNP Primary Care Provider [phone] Francheska Tucker Primary Care Provider [phone] Lei Thacker Unavailable Unavailable Sharmila Azar DO Primary Care Provider [phone] Inactive/Transferred Primary Care Provider Unava ilable Reason for Visit * Reason Comments Med Refill Encounter Details Date Type Department Care Team (Late st Contact Info) Description 07/25/2023 Refill Pat [facility] [address] [place] [address] Shilpa Miller CNP [address] [place] [address] Hypothyroidism, unspecified Social History Tobacco Use Types [...] unspecified documented in this encounter Care Teams Office Copy Selector Relationship Specialty Start Date End Date Shilpa Miller CNP [address] [place] [address] PCP - General Family Medicine 10/16/22 10/24/23 Francheska Tucker FNP [address] [place] [address] PCP - General Family Medicine 10/25/23 11/01/24 Sharmila Azar DO 73 [facility] [address] PCP - General Family Medicine 11/02/24 06/17/25 Inactive/Transferred PCP - General 06/18/25 06/18/25 Lei Thacker Health Navigator 09/17/24 documented as of this encounter
--- OUTSIDE RECORDS SUMMARY | 2025-08-04 13:28 | XMS_ITS | Encounter Summary ---
Author Organization [employer] Address [address] [place] [address] 7 [place] [address] Care Team Providers Care Ordnance Artificer Helper Name Role Phone Lei Thacker Unavailable Unavailable Reason for Referral * Consultation (Routine) - Pending Review Specialty Diagnoses / Procedures Referred By Cristina coughlin Referred To Contact Endocrinology Diagnoses Low serum cortisol level Sharmila Azar DO 73 [place] [address] Phone: tel: fax: [facility] Endocrinology [address] [facility] 3rd Floor [address] [place], [place] Phone: tel: fax: Referral ID Status Reason Start Date Expiration Date Visits Requested Visits Authorized [id number] Pending Review Specialty Services Required 07/17/2025 07/17/2026 1 1 Encounter Details Date Type Department Care Team (Late st Contact Info) Description 07/17/2025 Results Follow-Up [facility] MEDICAL [address] [place] [address] Sharmila Azar DO 73 [place] [address] Cortisol, Total, Magnesium 103015, Sed Rate by Modified Lilibeth, Additional followed-up [...] ACTH, Plasma (07/20/2025 9:20 AM EDT) Pathologist [facility] ACTH, Plasma 23.4 7.2 - 63.3 pg/mL [facility] 1 Comment:ACTH reference inter oliver for samples collected between 7 and 10 AM. Blood Venous blood specimen / Unknown 07/20/2025 9:20 AM EDT 07/20/2025 Narrative Resulting Agency Comment Performed at: 01 - [facility], [place], [place] [id number] Entry Level Accounting Clerk: Megan Curry MD, Phone: [phone] us Sharmila Azar DO LAB BLOOD ORDERABLES Final Res ult [facility] 1 * Rheumatoid Arthritis (RA) Profile [[id number]] (07/20/2025 9:19 AM EDT) Rheumatoid Factor (RF) <10.0 <14.0 IU/mL [facility] 1 Anti-CCP Ab, IgG/IgA 3 0 - 19 units [facility] 1 Comment: Negative <20 Weak positive 20 - 39 Moderate positive 40 - 59 Strong positive >59 Blood Venous blood specimen / Unknown 07/20/2025 9:19 AM EDT 07/20/2025 Narrative Resulting Agency Comment Performed at: - [facility] [id number] Entry Level Accounting Clerk: Megan Curry MD, Phone: [phone] [facility] LAB BLOOD ORDERABLES Final Res ult Performing Organization Address [facility] Co de Phone Number [facility] 1 * [...] Narrative Resulting Agency Comment Performed at: - [facility] [id number] Entry Level Accounting Clerk: Megan Curry MD, Phone: [phone] [facility] LAB BLOOD ORDERABLES Final Res ult [...] documented as of this encounter Care Teams Ordnance Artificer Helper Relationship Specialty Start Date End Date Lei Thacker Health Navigator 09/17/24 documented as of this encounter
--- OUTSIDE RECORDS SUMMARY | 2025-08-04 13:28 | XMS_ITS | Encounter Summary ---
Author Organization [employer] Address [address] [place] [address] 7t [place] [address] Care Team Providers Care Pollution Control Technician Name Role Phone Lei Thacker Unavailable Unavailable Encounter Details Date Type Department Care Team (Latest Contact Info) Description 07/21/2025 Results Follow-Up [facility] MEDICAL 73 [place] [address] Sharmila Azar DO 73 [place] [address] CBC auto differential, Comprehensive Metabolic Panel [[id number]] Social History Tobacco Use Types Packs/Day Years [...] r Schedule B Type Natriuretic Peptide (BNP) 766516 Lab Routine Low serum albumin Lymphedema Mild [...] documented as of this encounter Care Teams Pollution Control Technician Relationship Specialty Start Date End Date Lei Thacker Health Navigator 09/17/24 documented as of this encounter
--- OUTSIDE RECORDS SUMMARY | 2025-08-04 13:28 | XMS_ITS | Encounter Summary ---
Author Organization [employer] Address [address] [place] [address] 7t [place] [address] Care Team Providers Care Personal Assistant Name Role Phone Francheska Tucker MADELEINE Primary Care Provider [phone] Lei Thacker Unavailable Unavailable Sharmila Azar DO Primary Care Provider [phone] Inactive/Transferred Primary Care Provider Unava ilable Reason for Visit * Reason Comments Med Change Request Encounter Details Date Type Department Care Team (Late st Contact Info) Description 05/12/2024 Oneyda Stewart [facility] 73 [place] [address] Shilpa Miller CNP 73 [place] [address] Psychophysiological insomnia Social History Tobacco Use Types [...] documented as of this encounter Care Teams Personal Assistant Relationship Specialty Start Date End Date Francheska Tucker FNP [address] [place] [address] PCP - General Family Medicine 10/25/23 11/01/24 Sharmila Azar DO [address] [place] [address] PCP - General Family Medicine 11/02/24 06/17/25 Inactive/Transferred PCP - General 06/18/25 06/18/25 Lei Thacker Health Navigator 09/17/24 documented as of this encounter
--- OUTSIDE RECORDS SUMMARY | 2025-08-04 13:28 | XMS_ITS | Encounter Summary ---
Author Organization [employer] Address [address] [place] [address] 7t [place] [address] Care Team Providers Care Spool Tender Name Role Phone Francheska Tucker MADELEINE Primary Care Provider [phone] Lei Thacker Unavailable Unavailable Sharmila Azar DO Primary Care Provider [phone] Inactive/Transferred Primary Care Provider Unava ilable Reason for Visit * Reason Comments Med Change Request Encounter Details Date Type Department Care Team (Late st Contact Info) Description 05/12/2024 Oneyda Stewart [facility] MED[facility] [address] [place] [address] Shilpa Miller CNP [address] [place] [address] Psychophysiological insomnia Social History Tobacco Use Types [...] Notes * Telephone Encounter - Branden Mcclure, MACHINING MANAGER - 05/12/2024 9:56 AM EDT Pt tried [...] documented as of this encounter Care Teams Spool Tender Relationship Specialty Start Date End Date Francheska Tucker FNP [address] [place] [address] PCP - General Family Medicine 10/25/23 11/01/24 Sharmila Azar DO 73 [place] [address] PCP - General Family Medicine 11/02/24 06/17/25 Inactive/Transferred PCP - General 06/18/25 06/18/25 Lei Thacker Health Navigator 09/17/24 documented as of this encounter
--- OUTSIDE RECORDS SUMMARY | 2025-08-04 13:28 | XMS_ITS | Encounter Summary ---
Author Organization [employer] Address [address] [place] [address] 7 [place] [address] Care Team Providers Care Mold Maker Plaster Name Role Phone Lei Thacker Unavailable Unavailable Sharmila Azar DO Primary Care Provider [phone] Inactive/Transferred Primary Care Provider Unava ilable Reason for Visit * Reason Comments Med Change Request Encounter Details Date Type Department Care Team (Late st Contact Info) Description 01/26/2025 Oneyda Stewart [facility] [address] [place] [address] Sharmila Azar DO [address] [place] [address] Type 2 diabetes mellitus with diabetic polyneuropathy, with long-term current use of insulin ([facility]) Social History Tobacco Use Types Packs/Day [...] documented as of this encounter Care Teams Mold Maker Plaster Relationship Specialty Start Date End Date Sharmila Azar DO [address] [place] [address] PCP - General Family Medicine 11/02/24 06/17/25 Inactive/Transferred PCP - General 06/18/25 06/18/25 Lei Thacker Health Navigator 09/17/24 documented as of this encounter
--- OUTSIDE RECORDS SUMMARY | 2025-08-04 13:28 | XMS_ITS | Encounter Summary ---
Author Organization [employer] Address [address] [place] [address] 7t [place] [address] Care Team Providers Care Central Processing Tech Name Role Phone Francheska Tucker MADELEINE Primary Care Provider [phone] Lei Thacker Unavailable Unavailable Sharmila Azar DO Primary Care Provider [phone] Inactive/Transferred Primary Care Provider Unava ilable Reason for Visit * Reason Comments Med Change Request Encounter Details Date Type Department Care Team (Late st Contact Info) Description 01/14/2024 Oneyda Stewart [facility] MED[facility] [address] [place] [address] Shilpa Miller, MARINE FUEL DOCK ATTENDANT [address] [place] [address] Type 2 diabetes mellitus with diabetic polyneuropathy, with long-term current use of insulin ([facility]) Social History Tobacco Use Types Packs/Day Years [...] was [facility] [employer] [place] there was another TE on this. documented in this encounter Plan of Treatment Not on file documented as of this encounter Visit Diagnoses Diagnosis Type 2 diabetes mellitus with diabetic polyneuropathy, with long-term current use of insulin (HCC) documented in this encounter Care Teams Central Processing Tech Relationship Specialty Start Date End Date Francheska Tucker FNP [address] [place] [address] PCP - General Family Medicine 10/25/23 11/01/24 Sharmila Azar DO [address] [place] [address] PCP - General Family Medicine 11/02/24 06/17/25 Inactive/Transferred PCP - General 06/18/25 06/18/25 Lei Thacker Health Navigator 09/17/24 documented as of this encounter
--- OUTSIDE RECORDS SUMMARY | 2025-08-04 13:28 | XMS_ITS | Encounter Summary ---
Author Organization [employer] Address [address] [place] [address] 7t [place] [address] Care Team Providers Care Gun Number Name Role Phone Lei Thacker Unavailable Unavailable Sharmila Azar DO Primary Care Provider [phone] Inactive/Transferred Primary Care Provider Unava ilable Reason for Visit * Reason Onset Date Comments Med Refill 01/31/2025 Encounter Details Date Type Department Care Team (Late st Contact Info) Description 01/31/2025 Refill Pat [facility] MED[facility] [address] [place] [address] Francheska Tucker FNP [address] [place] [address] Essential (primary) hypertension Social History Tobacco Use [...] documented as of this encounter Care Teams Gun Number Relationship Specialty Start Date End Date Sharmila Azar DO 73 [place] [address] PCP - General Family Medicine 11/02/24 06/17/25 Inactive/Transferred PCP - General 06/18/25 06/18/25 Lei Thacker Health Navigator 09/17/24 documented as of this encounter
--- OUTSIDE RECORDS SUMMARY | 2025-08-04 13:28 | XMS_ITS | Encounter Summary ---
Author Organization [employer] Address [address] [place] [address] 7 [place] [address] Care Team Providers Care Head Grinder Name Role Phone Shilpa Miller CNP Primary Care Provider [phone] Francheska Tucker Primary Care Provider [phone] Lei Thacker Unavailable Unavailable Sharmila Azar DO Primary Care Provider [phone] Inactive/Transferred Primary Care Provider Unava ilable Encounter Details Date Type Department Care Team (Late st Contact Info) Description 01/31/2023 Abstract Pat [facility] MED[facility] [address] [place] [address] Shilpa Miller CNP [address] [place] [address] Social History Tobacco Use Types Packs/Day Years [...] on filedocumented in this encounter Care Teams Head Grinder Relationship Specialty Start Date End Date Shilpa Miller CNP [address] [place] [address] PCP - General Family Medicine 10/16/22 10/24/23 Francheska Tucker FNP [address] [place] [address] PCP - General Family Medicine 10/25/23 11/01/24 Sharmila Azar DO [address] [place] [address] PCP - General Family Medicine 11/02/24 06/17/25 Inactive/Transferred PCP - General 06/18/25 06/18/25 Lei Thacker Health Navigator 09/17/24 documented as of this encounter
--- OUTSIDE RECORDS SUMMARY | 2025-08-04 13:28 | XMS_ITS | Encounter Summary ---
Author Organization [employer] Address [address] [place] [address] [address]t [place] [address] Care Team Providers Care Green Chain Off Bearer Name Role Phone Lei Thacker Unavailable Unavailable Sharmila Azar DO Primary Care Provider [phone] Inactive/Transferred Primary Care Provider Unava ilable Reason for Visit * Reason Comments Med Change Request Encounter Details Date Type Department Care Team (Late st Contact Info) Description 12/25/2024 Oneyda Stewart [facility] [address] [place] [address] Sharmila Azar DO [address] [place] [address] Mild intermittent asthma without complication Social History [...] documented as of this encounter Care Teams Green Chain Off Bearer Relationship Specialty Start Date End Date Sharmila Azar DO [address] [place] [address] PCP - General Family Medicine 11/02/24 06/17/25 Inactive/Transferred PCP - General 06/18/25 06/18/25 Lei Thacker Health Navigator 09/17/24 documented as of this encounter
--- OUTSIDE RECORDS SUMMARY | 2025-08-04 13:28 | XMS_ITS | Clinical Summary ---
Author Organization [employer] Address [address] [place] [address] 7[address] [place] [address] Care Team Providers Care Dance Therapist Name Role Phone Lei Thacker Unavailable Unavailable Allergies Active Allergy Reactions Criticality Noted Date Comments Pawhuska Oil Hives,Itching,Rash,S hortness of breath,Swelling,Whee zing High 11/05/1980 Other Reaction(s): Anaphylaxis Amoxicillin 10/11/2022 Other reaction(s): Unknown Aspirin 10/11/2022 Other reaction(s): sensitivity Azithromycin Rash Low 10/11/2022 Black Amawalk Flavoring Agent (Non-Screening) Hives,Itching,Shortn ess of breath,Swelling,Whee [...] (PadSORBer Bed Morales Liners) miscIndications:Se angélica obesity (CMS/HCC) (HCC) 1 1e12 Vector Genomes/m2 4 times daily. [...] polyneuropathy, with long-term current use of insulin ([facility]) Use as directed to test blood sugars 3 times a day 100 strip 12 12/09/19 25 Active levalbuterol (Xopenex) 45 MCG/ACT inhalerIndications :Mild intermittent asthma without complication INHALE 2 PUFFS EVERY 4 HOURS IF NEEDED FOR WHEEZING. 15 g 3 12/25/19 25 Active nystatin (Mycostatin) 080158 UNIT/GM powderIndications: Soo infection of flexural skin Apply topically 2 times daily. 60 g 1 01/01/20 25 026 Active losartan (Cozaar) 100 MG tabletIndications: Essential (primary) hypertension TAKE 1 TABLET (100 MG) BY MOUTH ONCE PER DAY. 90 tablet 3 02/03/20 25 Active Basaglar KwikPen 100 UNIT/ML penIndications:Typ e 2 diabetes mellitus with diabetic polyneuropathy, with long-term current use of insulin ([facility]) Inject 82 Units under the skin at [...] 03/09/20 25 Active Lancets (OneTouch Delica Plus [id number]) miscIndications:Ty pe 2 diabetes mellitus with diabetic polyneuropathy, with long-term current use of insulin ([facility]) CHECK GLUCOSE 3 TIMES A DAY 100 [...] pe 2 diabetes mellitus with diabetic polyneuropathy (HCC) INJECT 1 EACH UNDER THE SKIN 4 TIMES DAILY. 100 each 3 05/18/20 25 Active insulin aspart FlexPen (NovoLOG) 100 UNIT/ML penIndications:Typ e 2 diabetes mellitus with diabetic polyneuropathy, with long-term current use of insulin (HCC) Inject 8-10 Units under the skin before breakfast, before lunch, and before evening meal. 30 mL 3 05/29/20 25 Active cholecalciferol (Vitamin D3) 25 MCG (1000 UT) tablet TAKE 1 TABLET (25 MCG) BY MOUTH IN THE MORNING 90 tablet 07/20/20 25 Active FreeStyle lancetsIndications :Type 2 diabetes mellitus with diabetic polyneuropathy, with long-term current use of insulin (HCC) 1 each by Other route 3 times daily. 300 each 04/16/20 025 Active Problems Problem Noted Date Diagnosed [...] 10/11/2022 Depression 10/11/2022 Anxiety 10/11/2022 Schizoaffective disorder (CMS/HCC) 10/11/2022 Overview (01/30/2024): With Anxiety, depression, PTSD. Engaged with Dom Carter at [facility] in [place] for medication. Sees Forrest at [facility] for therapy weekly on phone. Feeling symptoms are worsening. Starting to not want to leave the house and losing ghanshyam in doing things. Discussed options. Encouraged to discuss with therapist and prescriber. If feeling unheard by prescriber, encouraged to advocate for a different prescriber, but Ms. Dougherty is more comfortable getting a second opinion through HC provider at this time. Will refer to [...] ARB and STATIN. EYE: Dr. Segura in [place] DENTIST: Has false teeth. FBS 60-100. Will [...] Albuterol about once per month. Severe obesity (CMS/HCC) 10/11/2022 Overview (03/15/2024): BMI 72. Needs bilateral total knee replacements but has to lose weight before surgeon will do it. Discussed options - has already tried intermittent fasting, but was having hypoglycemia. Tried Ozempic but had adverse effects of severe diarrhea and abdominal pain. Will refer to weight management. Completed [employer] paperwork for [place]ma[place]. Assessment & Plan (05/25/2023 [...] Department Care Team Description 07/22/2025 Results Follow-Up [address] [address] Sharmila Azar, DO TSH with Reflex to Free T4 [[id number]] 07/21/2025 Results Follow-Up [address] [address] Sharmila Azar DO CBC auto differential, Comprehensive Metabolic Panel [[id number]] 07/18/2025 Refill [facility] [address] [place] [address] Francheska Tucker, MATHEMATICS DEPARTMENT CHAIR 07/17/2025 Orders Only [address] [address] Sharmila Azar DO Arthralgia of both knees (Primary Dx); Lymphedema; Abnormal CBC; ESR raised 07/17/2025 Results Follow-Up [address] [address] Sharmila Azar DO Cortisol, Total, Magnesium 197002, Sed Rate by Modified Westergren, Additional followed-up results: 4 07/10/[address] [address] PcpPat Unassigned [employer] Supplies (Phone Number # / ) 07/08/[address] [address] Nancy Bridges LPN 07/02/[address] [address] PcpPat Unassnilay holder 06/22/2025 1:45 PM EDT Office Visit [address] [address] Sharmila Azar DO Primary osteoarthritis of both knees (Primary Dx); Nail dystrophy; Long toenail; Type 2 diabetes mellitus with diabetic polyneuropathy, with long-term current use of insulin (CMS/HCC); Muscle weakness of lower extremity; Diabetic polyneuropathy associated with type 2 diabetes mellitus (CMS/HCC); Acquired lymphedema; Transportation insecurity 06/20/2025 Travel 06/16/[address] [address] [place], WAREHOUSE SHIPPING CLERK Pt-1 ride to [place] 06/14/2025 Travel 05/29/2025 Refill [facility] MED[facility] [address] [place] [address] Sharmila Azar DO Type 2 diabetes mellitus with diabetic polyneuropathy, with long-term current use of insulin ([facility]) 05/27/2025 Telephone [facility] [address] [place] [address] Sharmila Azar DO 05/23/2025 Telephone [facility] [address] [place] [address] Sharmila Azar DO PT-1 05/19/2025 Telephone [facility] [address] [place] [address] Sharmila Azar DO PT-1 05/17/2025 Refill [facility] [address] [place] [address] Sharmila Azar DO Type 2 diabetes mellitus with diabetic polyneuropathy ([facility]) 05/04/[address] [facility] MED[facility] [address] [place] [address] Sharmila Azar DO Allergy, sequela from Last 3 Months Immunizations Immunization Administration [...] Mother vladimir hawk Hypertension Mother vladimir hawk [place] Mother vladimir hawk after [place]. Stroke Mother vladimir hawk Thyroid disease Mother [...] with long-term current use of insulin (CMS/HCC) HM DIABETES EYE EXAM Routine 05/28/2024 5:27 PM [...] Resulting Agency Comment Performed at: - [facility] [address] [id number] [place]: Megan Curry MD, Phone: [phone] [facility] LAB BLOOD ORDERABLES Final Res ult [facility] * ACTH, Plasma (07/20/2025 9:20 AM EDT) ACTH, Plasma 23.4 7.2 - 63.3 pg/mL [facility] 1 Comment:ACTH reference inter oliver for samples collected between 7 and 10 AM. Blood Venous blood specimen / Unknown 07/20/2025 9:20 AM EDT 07/20/2025 Narrative Resulting Agency Comment Performed at: - [facility] [address] [id number] [place]: Megan Curry MD, Phone: [phone] [facility] LAB BLOOD ORDERABLES Final Res ult [facility] * (ABNORMAL) Comprehensive Metabolic Panel [[id number]] (07/20/2025 9:20 AM EDT) Glucose 143(H) 70 [...] Narrative Resulting Agency Comment Performed at: - [facility] [id number] [place]: Megan Curry MD, Phone: [phone] [facility] BLOOD ORDERABLES Final Res ult [facility] * Rheumatoid Arthritis (RA) Profile [[id number]] (07/20/2025 9:19 AM EDT) Rheumatoid Factor (RF) <10.0 <14.0 IU/mL [facility] 1 Anti-CCP Ab, IgG/IgA 3 0 - 19 units [facility] 1 Comment: Negative <20 Weak positive 20 - 39 Moderate positive 40 - 59 Strong positive >59 Blood Venous blood specimen / Unknown 07/20/2025 9:19 AM EDT 07/20/2025 Narrative Resulting Agency Comment Performed at: - [facility] [id number] [place]: Megan Curry MD, Phone: [phone] [facility] LAB BLOOD ORDERABLES Final Res ult Performing Organization Address [facility] de Phone Number [facility] * ROEL Screen,IFA, with Reflex to Titer and Pattern (07/20/2025 9:19 AM EDT) Pathologist [facility] ROEL Screen, IFA Negative [facility] 1 Comment: Negative <1:80 Borderline 1:80 Positive >1:80 ICAP nomenclature: AC-0 For more information about Hep-2 cell patterns use ANApatterns.org, the official website for the International Consensus on Antinuclear Antibody (ROEL) Patterns (ICAP). Blood Venous blood specimen / Unknown 07/20/2025 9:19 AM EDT 07/20/2025 Narrative Resulting Agency Comment Performed at: - [facility] [id number] [place]: Megan Curry MD, Phone: [phone] [facility] LAB BLOOD ORDERABLES Final Res ult Performing Organization Address [facility] de Phone Number [facility] * (ABNORMAL) TSH with Reflex to Free T4 [[id number]] (07/20/2025 9:18 AM EDT) [facility] TSH 0.293(L) 0.450 - 4.500 uIU/mL [facility] 1 Blood Venous blood specimen / Unknown 07/20/2025 9:18 AM EDT 07/20/2025 Narrative Resulting Agency Comment Performed at: 01 - [facility] [id number] [place]: Megan Curry MD, Phone: [phone] Francheska Tucker [facility] LAB BLOOD ORDERABLES Final Resul t Performing Organization Address [facility] de Phone Number [facility] * (ABNORMAL) Sed Rate by Modified Lilibeth (07/16/2025 9:55 AM EDT) Pathologist [facility] Sed Rate By Modified Westergren 84(H) 0 - 40 mm/hr [facility] 1 Blood Venous blood specimen / Unknown 07/16/2025 9:55 AM EDT 07/16/2025 Narrative Resulting Agency Comment Performed at: - [facility] [id number] [place]: Megan Curry MD, Phone: [phone] [facility] LAB BLOOD ORDERABLES Final Res ult Performing Organization Address City/[facility]/ZIP Co de Phone Number [facility] 1 * (ABNORMAL) C-reactive Protein (07/16/2025 9:55 AM EDT) C-Reactive Protein 23(H) 0 - 10 mg/L [facility] 1 Blood Venous blood specimen / Unknown 07/16/2025 9:55 AM EDT 07/16/2025 Narrative Resulting Agency Comment Performed at: - [facility] [id number] [place]: Megan Curry MD, Phone: [phone] [facility] LAB BLOOD ORDERABLES Final Res ult Performing Organization Address [facility]/ZIP Co de Phone Number [facility] 1 * Magnesium [id number] (07/16/2025 9:55 AM EDT) Magnesium 1.9 1.6 - 2.3 mg/dL [facility] 1 Blood Venous blood specimen / Unknown 07/16/2025 9:55 AM EDT 07/16/2025 Narrative Resulting Agency Comment Performed at: - [facility] [id number] [place]: Megan Curry MD, Phone: [phone] [facility] LAB BLOOD ORDERABLES Final Res ult Performing Organization Address [facility]/ZIP Co de Phone Number [facility] * [...] Agency Comment Performed at: 01 - [facility] [address] [id number] [place]: Megan Curry MD, Phone: [phone] Sharmila Azar DO LAB BLOOD ORDERABLES Final [...] breast cancer. No known palpable abnormalities. COMPARISON: [facility] dating back to 01/14/2013. TECHNIQUE: Full-field digital [...] (Negative) Lay letter mailed to patient WSN: [id number] Ordering Physician: Sharmila Azar Dictated By: Kayleigh Hall MD, I Dictated Date/Time: 04/27/25 4:25 pm Reviewed By: Kayleigh Hall MD, I Signed By: Kayleigh Hall MD, I Signed Date/Time: 04/27/25 4:25 pm Transcribed By: GITA Spout Worker Date/Time: 04/27/25 4:22 pm Birads: Procedure Note Donotuseinterpreter, Image - 04/27/2025 PROCEDURE: MM Digital Mammo Screening INDICATION: Screening for breast cancer. No known palpableabnormalities. COMPARISON: [facility] dating back to 01/14/2013. TECHNIQUE: Full-field digital [...] (Negative) Lay letter mailed to patient WSN: [id number] Ordering Physician: Sharmila Azar Dictated By: Kayleigh Hall MD, I Dictated Date/Time: 04/27/25 4:25 pm Reviewed By: Kayleigh Hall MD, I Signed By: Kayleigh Hall MD, I Signed Date/Time: 04/27/25 4:25 pm Transcribed By: GITA Spout Worker Date/Time: 04/27/25 4:22 pm Birads: Sharmila Azar [...] AM EST Performed at: 01 - [facility] [address] [id number] [place]: Megan Curry MD, Phone: [phone] us Sharmila Azar DO LAB URINE ORDERABLES Final Res ult [facility] * Hm Diabetes Eye Exam (05/28/2024 5:27 PM EDT) Historical Provider HEALTH MAINTENANCE Final Result * Lipid panel (12/11/2023 12:51 PM EST) Cholesterol, Total 142 (<200) MG/DL [facility] Triglyceride (mg/dL) in Serum/Plasma 89 (<150) MG/DL [facility] HDL Cholesterol 67 (>39) MG/DL [facility] LDL Cholesterol, Calculated 57 (0-130) MG/DL [facility] Non HDL Chol. (LDL+VLDL) 75 (<160) MG/DL [facility] Comment: Testing performed or reported by [facility], a Service of [facility], [address] [place] [address] Rojas Garza MD, Reimbursement Director [facility]# [id number] Blood Venous blood specimen / Unknown 12/11/2023 12:51 PM EST 12/11/2023 12:52 PM EST us Francheska SALVADOR LAB BLOOD ORDERABLES Final Resul t Performing Organization Address [facility]/ZIP Co de Phone Number [facility] [address] [place] [address] * Pap Smear (07/17/2023 12:00 AM EDT) Swab Historical Provider LAB CYTOLOGY ORDERABLES F inal Result Performing Organization Address City/[facility]/ZIP Co de Phone Number [address] [address] * Hm Colonoscopy (12/30/2020) Colonoscopy repeat in 10 yeasr us Historical Provider MD HEALTH MAINTENANCE Final Result * -Hepatitis C Antibody Test (12/14/2020 7:58 AM EST) ANTI-HEPATITIS C NEGATIVE (NEG) [facility] Comment: Reference range: Negative This test was performed on the Leo Terrazzo Finisher immunoassay system. 12/14/2020 7:58 AM EST us Shilpa Chaloux LINUX ADMIN ENGINEER HISTORICAL/NON ORDERABLE LABS Final Result Performing Organization Address [facility] Co de Phone Number [facility] [address] * -HIV AB-AG 4TH GENERATION (12/14/2020 7:58 AM EST) RESULT 4TH GEN HIV AB-AG NEGATIVE (NEG) [facility] Comment: Negative for antibodies to HIV 1 and HIV 2 and P24 antigen. Reference range: Negative Additional note: Written patient authorization is required for each separate release of this test result. This test was performed on the Leo Terrazzo Finisher immunoassay system. 12/14/2020 7:58 AM EST Shilpa Chaloux LINUX ADMIN ENGINEER LAB BLOOD ORDERABLES Final Re sult Performing Organization Address [facility] de Phone Number [facility] [address] from Last 3 Months or Most Recently Relevant to Health Maintenance Insurance MEDICARE [facility] STANDARD Advance Directives Documents on File Type Date Recorded Patient Park Ranger Expl anation HealthCare Proxy 10/24/2023 12:48 PM HCP Care Teams Dance Therapist Relationship Specialty Start Date End Date Lei Thacker Health Navigator 09/17/24
--- OUTSIDE RECORDS SUMMARY | 2025-08-04 13:29 | XMS_ITS | Encounter Summary ---
Author Organization [employer] Address [address] [place] [address] 7 [place] [address] Care Team Providers Care Associate Sales Name Role Phone Shilpa Miller CNP Primary Care Provider [phone] Francheska Tucker Primary Care Provider [phone] Lei Thacker Unavailable Unavailable Sharmila Azar DO Primary Care Provider [phone] Inactive/Transferred Primary Care Provider Unava ilable Encounter Details Date Type Department Care Team (Late st Contact Info) Description 11/30/2022 Abstract [place] [facility] [address] [place] [address] Shilpa Miller CNP [address] [place] [address] Social History Tobacco Use Types Packs/Day Years [...] on filedocumented in this encounter Care Teams Associate Sales Relationship Specialty Start Date End Date Shilpa Miller CNP [address] [place] [address] PCP - General Family Medicine 10/16/22 10/24/23 Francheska Tucker FNP [address] [place] [address] PCP - General Family Medicine 10/25/23 11/01/24 Sharmila Azar DO [address] [place] [address] PCP - General Family Medicine 11/02/24 06/17/25 Inactive/Transferred PCP - General 06/18/25 06/18/25 Lei Thacker Health Navigator 09/17/24 documented as of this encounter
--- OUTSIDE RECORDS SUMMARY | 2025-08-04 13:29 | XMS_ITS | Encounter Summary ---
Author Organization [employer] Address [address] [place] [address] 7 [place] [address] Care Team Providers Care Head Of Sales And Marketing Name Role Phone Shilpa Miller CNP Primary Care Provider [phone] Francheska Tucker Primary Care Provider [phone] Lei Thacker Unavailable Unavailable Sharmila Azar DO Primary Care Provider [phone] Inactive/Transferred Primary Care Provider Unava ilable Encounter Details Date Type Department Care Team (Late st Contact Info) Description 10/27/2022 Abstract [place] [facility] [address] [place] [address] Shilpa Miller CNP [address] [facility] [place] [address] Social History Tobacco Use Types Packs/Day Years [...] filedocumented in this encounter Care Teams Head Of Sales And Marketing Relationship Specialty Start Date End Date Shilpa Miller CNP [address] [place] [address] PCP - General Family Medicine 10/16/22 10/24/23 Francheska Tucker FNP [address] [place] [address] PCP - General Family Medicine 10/25/23 11/01/24 Sharmila Azar DO [address] [facility] [place] [address] PCP - General Family Medicine 11/02/24 06/17/25 Inactive/Transferred PCP - General 06/18/25 06/18/25 Lei Thacker Health Navigator 09/17/24 documented as of this encounter
--- OUTSIDE RECORDS SUMMARY | 2025-08-04 13:29 | XMS_ITS | Encounter Summary ---
Author Organization [employer] Address [address] [place] [address] 7t [place] [address] Care Team Providers Care Edi Specialist Name Role Phone Shilpa Miller MARIA C Primary Care Provider [phone] Francheska Tucker Primary Care Provider [phone] Lei Thacker Unavailable Unavailable Sharmila Azar DO Primary Care Provider [phone] Inactive/Transferred Primary Care Provider Unava ilable Encounter Details Date Type Department Care Team (Late st Contact Info) Description 12/01/2022 Orders Only [facility] MEDICAL [address] [place] [address] Avelina Fulton FNP Type 2 diabetes mellitus with diabetic polyneuropathy, with long-term current use of insulin ([facility]) (Primary Dx) Social History Tobacco Use Types [...] polyneuropathy, with long-term current use of insulin (HCC)- Primary documented in this encounter Care Teams Edi Specialist Relationship Specialty Start Date End Date Shilpa Miller CNP [address] [place] [address] PCP - General Family Medicine 10/16/22 10/24/23 Francheska Tucker FNP [address] [place] [address] PCP - General Family Medicine 10/25/23 11/01/24 Sharmila Azar DO [address] [place] [address] PCP - General Family Medicine 11/02/24 06/17/25 Inactive/Transferred PCP - General 06/18/25 06/18/25 Lei Thacker Health Navigator 09/17/24 documented as of this encounter
--- OUTSIDE RECORDS SUMMARY | 2025-08-04 13:29 | XMS_ITS | Encounter Summary ---
Author Organization [employer] Address [address] [place] [address] 7 [place] [address] Care Team Providers Care Director Account Management Name Role Phone Shilpa Miller CNP Primary Care Provider [phone] Francheska Tucker Primary Care Provider [phone] Lei Thacker Unavailable Unavailable Sharmila Azra DO Primary Care Provider [phone] Inactive/Transferred Primary Care Provider Unava ilable Encounter Details Date Type Department Care Team (Late st Contact Info) Description 11/30/2022 Abstract [place] [facility] [address] [place] [address] Shilpa Miller CNP [address] [place] [address] Social History Tobacco Use Types Packs/Day Years [...] filedocumented in this encounter Care Teams Director Account Management Relationship Specialty Start Date End Date Shilpa Miller CNP [address] [place] [address] PCP - General Family Medicine 10/16/22 10/24/23 Francheska Tucker FNP [address] [place] [address] PCP - General Family Medicine 10/25/23 11/01/24 Sharmila Azar DO [address] [place] [address] PCP - General Family Medicine 11/02/24 06/17/25 Inactive/Transferred PCP - General 06/18/25 06/18/25 Lei Thacker Health Navigator 09/17/24 documented as of this encounter
--- OUTSIDE RECORDS SUMMARY | 2025-08-04 13:29 | XMS_ITS | Encounter Summary ---
Author Organization [employer] Address [address] [place] [address] 7t [place] [address] Care Team Providers Care Assessment Nurse Name Role Phone Lei Thacker Unavailable Unavailable Sharmila Azar DO Primary Care Provider [phone] Inactive/Transferred Primary Care Provider Unava ilable Reason for Visit * Reason Onset Date Comments Med Refill 11/05/2024 Encounter Details Date Type Department Care Team (Late st Contact Info) Description 11/05/2024 Refill [place] [facility] [address] [place] [address] Shilpa Miller, MARIA C [address] [place] [address] Type 2 diabetes mellitus with diabetic polyneuropathy ([facility]/HCC) Social History Tobacco Use Types Packs/Day Years [...] documented as of this encounter Care Teams Assessment Nurse Relationship Specialty Start Date End Date Sharmila Azar DO [address] [place] [address] PCP - General Family Medicine 11/02/24 06/17/25 Inactive/Transferred PCP - General 06/18/25 06/18/25 Lei Thacker Health Navigator 09/17/24 documented as of this encounter
--- OUTSIDE RECORDS SUMMARY | 2025-08-04 13:29 | XMS_ITS | Encounter Summary ---
Author Organization [employer] Address [address] [facility] 7t [place] [address] Care Team Providers Care Oiler Helper Name Role Phone Lei Thacker Unavailable Unavailable Sharmila Azar DO Primary Care Provider [phone] Inactive/Transferred Primary Care Provider Unava ilable Encounter Details Date Type Department Care Team (Late st Contact Info) Description 11/21/2024 Orders Only [facility] MEDICAL [address] [place], [place] [id number] Provider, MD Sharad Social History Tobacco Use [...] documented as of this encounter Care Teams Oiler Helper Relationship Specialty Start Date End Date Sharmila Azar DO [address] [place] [address] PCP - General Family Medicine 11/02/24 06/17/25 Inactive/Transferred PCP - General 06/18/25 06/18/25 Lei Thacker Health Navigator 09/17/24 documented as of this encounter
--- OUTSIDE RECORDS SUMMARY | 2025-08-04 13:29 | XMS_ITS | Encounter Summary ---
Author Organization [employer] Address [address] [place] [address] [address] [place] [address] Care Team Providers Care Electrical Maintenance Engineer Name Role Phone Lei Thacker Unavailable Unavailable Sharmila Azar DO Primary Care Provider [phone] Inactive/Transferred Primary Care Provider Unava ilable Reason for Visit * Reason Onset Date Comments Med Refill 12/24/2024 Encounter Details Date Type Department Care Team (Late st Contact Info) Description 12/24/2024 Refill [facility] [address] [place] [address] Sharmila Azar DO [address] [place] [address] Anxiety; PTSD (post-traumatic stress disorder) Social History [...] documented as of this encounter Care Teams Electrical Maintenance Engineer Relationship Specialty Start Date End Date Sharmila Azar DO [address] [place] [id number] PCP - General Family Medicine 11/02/24 06/17/25 Inactive/Transferred PCP - General 06/18/25 06/18/25 Lei Thacker Health Navigator 09/17/24 documented as of this encounter
--- OUTSIDE RECORDS SUMMARY | 2025-08-04 13:29 | XMS_ITS | Data Portability ---
Author Organization [facility], [facility] Address [address] [place] [address] Care Team Providers Care S[employer] Name Role Phone LIANNA PANCHAL Primary Care Provider Assessment No assessment recorded. Plan of Treatment Reminders Order Date Submit Date Provider Last Modified By Organization Details Last Modified Time Details Appointments RECHECK 15 2024 03:30P M Robert Conde PA-C Not available Not available Not available Lab None recorded . Referral None recorded . Procedures None recorded . Surgeries None recorded . Imaging None recorded . Medication Orders None recorded . Patient TargetsNo targets recorded. Patient InstructionsNo instructions recorded. Reason for Referral None Reported. Problems Name Problem SNOMED Code Status Onset Date Resolution Date Notes Provider Name and Address Organization Details Recorded Time No complaints [id number] Active Status : 'I'; Not Available [facility] 4 09:19:03 Problem Notes None recorded. Procedures Surgical History Date Name Laterality Status Provider Name and Address Organization Details Recorded Time 5 Knee Kenalog 40 1cc Injection, Bilateral completed Robert Conde PA-C [address], [place], [address], [facility] 07/15/2025 16:42:15 5 Knee Kenalog 40 1cc Injection, Bilateral completed Robert Conde PA-C [address], [place], [address], [facility] 04/01/2025 07:56:50 5 Knee Kenalog 40 1cc Injection, Bilateral completed Robert Conde PA-C [address], [place], [address], [facility] 12/31/2024 15:24:25 4 Knee Kenalog 40 1cc Injection, Bilateral completed HERMINIO Ribeiro-C [address], [place], [address], [facility] 10/08/2024 13:43:12 4 Knee Kenalog 40 1cc Injection, Bilateral completed Robert Conde PA-C [address], [place], [address], [facility] 07/09/2024 12:37:00 4 Knee Kenalog 40 1cc Injection, Bilateral completed Robert Conde PA-C [address], [place], [address], [facility] 03/28/2024 08:24:20 Imaging Results None recorded. Procedure Notes None recorded. Medical Equipment None Reported. Allergies Allergen ID Allergen Name Allergen Category Reaction Reaction Severity Criticality Documentation Date Start Date Code Code System Note Provider Name and Address Organization Details Recorded Time [id number] Product containin g angiotens in-conver ting enzyme inhibitor (product) medicatio n Not available Not available Not available 03/27/2024 38871 009 SNOMED RODOLFO JAMES [facility] 4 14:45:09 005017 Bactrim medicatio n Not available Not available Not available 03/27/2024 13152 9 RxNorm RODOLFO QUINONEZY [facility] 4 14:45:49 188898 metformin medicatio n Not available Not available Not available 03/27/2024 6809 RxNorm RODOLFO JAMES [facility] 4 14:46:00 322739 Substance with sulfonami de structure and antibacte rial mechanism of action (substanc e) medicatio n Not available Not available Not available 03/27/2024 90012 8003 SNOMED RODOLFO QUINONEZY [facility] 4 14:46:16 655397 latex environme nt,medica tion Not available Not available Not available 03/27/2024 18847 91 RxNorm RODOLFO JAMES dena ID - [facility] 4 14:46:24 [id number] Lyrica medicatio n Not available Not available Not available 10/08/2024 99119 1 RxNorm DOMENIC GUILLEN dena ID - [facility] 4 14:50:46 [id number] Product containin g penicilli n (product) medicatio n Not available Not available Not available 01/07/20242010 84964 8001 SNOMED Aller gyRea ction : 'Skin React ion, Nause a/Vom iting /Diar gustavo' ; Not Available [facility] 4 15:13:20 96446 amoxicill in trihydrat e medicatio n Not available Not available Not available 01/07/20242010 22392 8 RxNorm Aller gyRea ction : 'Skin React ion'; Not Available [facility] 4 15:13:20 Medications Name Sig Start Date Stop Date Status Note LastModified by Organization Details LastModified Time buspirone 5 mg tablet TAKE 1 TABLET BY MOUTH TWICE A DAY 12/25 completed Not Available Not Available Not Available clonidine HCl 0.1 mg tablet TAKE 1 TABLET BY MOUTH ONCE A DAY NEEDED FOR PANIC ATTACK 12/25 completed Not Available Not Available Not Available gabapentin 600 mg tablet TAKE 1 TABLET BY MOUTH AT BEDTIME MAY REPEAT UP TO ONCE PER NIGHT NEEDED FOR NIGHTTIME AWAKENING . 12/25 completed Not Available Not Available Not Available atorvastati n 20 mg tablet TAKE 1 TABLET BY MOUTH EVERY DAY IN THE MORNING active Not Available Not Available No t Available albuterol sulfate 2.5 mg/3 mL (0.083 %) solution for nebulizatio n 3 ML INHALATIO N EVERY 6 HOURS NEEDED FOR WHEEZING active Not Available Not Available No t Available ammonium lactate 12 % lotion PLEASE SEE ATTACHED FOR DETAILED DIRECTION S active Not Available Not Available No t Available fluconazole 150 mg tablet TAKE 1 TABLET BY MOUTH 1 TIME PER WEEK. 12/25 completed Not Available Not Available Not Available prazosin 1 mg capsule TAKE 1 CAPSULE BY MOUTH EVERYDAY AT BEDTIME 12/25 completed Not Available Not Available Not Available FreeStyle Lancets 28 gauge USE TO TEST BLOOD SUGAR 3 TIMES DAILY active Not Available Not Available No t Available clonazepam 0.5 mg tablet TAKE 1 TABLET BY MOUTH TWICE A DAY FOR 7 DAYS active Not Available Not Available No t Available ethacrynic acid 25 mg tablet TAKE 6 TABLETS BY MOUTH TWICE A DAY 90 active Not Available Not Available No t Available clonazepam 1 mg tablet TAKE 1 TABLET BY MOUTH THREE TIMES A DAY NEEDED active Not Available Not Available No t Available clindamycin HCl 150 mg capsule TAKE 2 CAPSULES BY MOUTH EVERY 6 HOURS,X7 DAYS active Not Available Not Available No t Available olanzapine 10 mg tablet TAKE 1 TABLET (10 MG) BY MOUTH IF NEEDED IN THE MORNING AND AT BEDTIME (VOICES, IRRITABIL ITY). 12/25 completed Not Available Not Available Not Available metronidazo le 500 mg tablet TAKE 1 TABLET BY MOUTH 3 TIMES A DAY,X7 DAYS, PROPHYLAX IS CAT BITE 12/25 completed Not Available Not Available Not Available chlorthalid one 25 mg tablet TAKE 1/2 TABLET (12.5 MG) BY MOUTH ONCE PER DAY. 12/25 completed Not Available Not Available Not Available levofloxaci n 250 mg tablet TAKE 1 TABLET (250 MG) BY MOUTH ONCE PER DAY FOR 5 DAYS. 12/25 completed Not Available Not Available Not Available amlodipine 5 mg tablet TAKE 1 TABLET (5 MG) BY MOUTH ONCE PER DAY. active Not Available Not Available No t Available levothyroxi ne 25 mcg tablet TAKE 1.5 TABLETS (37.5 MCG) BY MOUTH BEFORE BREAKFAST . active Not Available Not Available No t Available doxycycline monohydrate 100 mg capsule TAKE ONE PILL BY MOUTH AFTER LUNCH AND DINNER TO TREAT RASH. active Not Available Not Available No t Available insulin aspart U-100 100 unit/mL subcutaneou s solution PLEASE SEE ATTACHED FOR DETAILED DIRECTION S active Not Available Not Available No t Available triamcinolo ne acetonide 0.1 % topical ointment PLEASE SEE ATTACHED FOR DETAILED DIRECTION S active Not Available Not Available No t Available clotrimazol e-betametha sone 1 %-0.05 % topical cream APPLY TO AFFECTED AREA TWICE A DAY FOR 14 DAYS active Not Available Not Available No t Available glucose 4 gram chewable tablet CHEW 4 TABLETS (16 G) IF NEEDED FOR LOW BLOOD SUGAR. active Not Available Not Available No t Available docusate sodium 100 mg capsule TAKE 1 CAPSULE BY MOUTH TWICE A DAY active Not Available Not Available No t Available levothyroxi ne 200 mcg tablet TAKE 1 TABLET (200 MCG) BY MOUTH ONCE PER DAY. active Not Available Not Available No t Available fluticasone propionate 220 mcg/actuati on HFA aerosol inhaler INHALE 1 PUFF IN THE MORNING AND AT BEDTIME 12/25 completed Not Available Not Available Not Available mupirocin 2 % topical ointment APPLY IN THE MORNING AND IN THE EVENING TO THE KNEE FOLDS UNTIL HEALED active Not Available Not Available No t Available nystatin 100,000 unit/gram topical powder APPLY TO AFFECTED AREA TWICE A DAY active Not Available Not Available No t Available epinephrine 0.3 mg/0.3 mL injection, auto-inject or INJECT 0.3 ML (0.3 MG) INTO UPPER LEG DIRECTED ONCE FOR 1 DOSE. CALL 911 AFTER USE. active Not Available Not Available No t Available levofloxaci n 750 mg tablet TAKE 1 TABLET BY MOUTH EVERY DAY FOR 7 DAYS 12/25 completed Not Available Not Available Not Available albuterol sulfate HFA 90 mcg/actuati on aerosol inhaler INHALE 2 PUFFS BY MOUTH EVERY 4 HOURS NEEDED FOR WHEEZE active Not Available Not Available No t Available topiramate 100 mg tablet TAKE 1 TABLET BY MOUTH TWICE A DAY 12/25 completed Not Available Not Available Not Available losartan 100 mg tablet TAKE 1 TABLET (100 MG) BY MOUTH ONCE PER DAY. active Not Available Not Available No t Available clotrimazol e 1 % topical cream APPLY TO AFFECTED AREA TWICE A DAY FOR 14 DAYS active Not Available Not Available No t Available risperidone 1 mg tablet TAKE 1 TABLET BY MOUTH AT BEDTIME & 1/2 TABLET (0.5 MG) IN THE MORNING. 12/25 completed Not Available Not Available Not Available doxycycline hyclate 100 mg tablet TAKE 1 TABLET BY MOUTH 2 TIMES A DAY,X7 DAYS, FOR PROPHYLAX IS CAT BITE - HIGH RISK COMPLICAT IONS 12/25 completed Not Available Not Available Not Available risperidone 0.5 mg tablet TAKE 1 TABLET BY MOUTH EVERYDAY AT BEDTIME 12/25 completed Not Available Not Available Not Available Novolog FlexPen U-100 Insulin aspart 100 unit/mL (3 mL) subcutaneou s INJECT 8-10 UNITS UNDER THE SKIN BEFORE BREAKFAST , BEFORE LUNCH, AND BEFORE EVENING MEAL. active Not Available Not Available No t Available Alcohol Prep Pads TEST DAILY BEFORE ALL MEALS/SNA CKS AND ONCE BEFORE BEDTIME. active Not Available Not Available No t Available nitrofurant oin monohydrate /macrocryst als 100 mg capsule TAKE 1 CAPSULE BY MOUTH 2 TIMES DAILY FOR 5 DAYS. 12/25 completed Not Available Not Available Not Available levalbutero l HFA 45 mcg/actuati on aerosol inhaler 1 INHALATIO N INHALATIO N EVERY 4 HOURS, NEEDED FOR SHORTNESS OF BREATH OR WHEEZING active Not Available Not Available No t Available pregabalin 25 mg capsule TAKE 1 CAPSULE (25 MG) BY MOUTH ONCE PER DAY. 12/25 completed Not Available Not Available Not Available ramelteon 8 mg tablet TAKE 1 TABLET (8 MG) BY MOUTH AT BEDTIME. 12/25 completed Not Available Not Available Not Available BD Insulin Syringe Ultra-Fine 0.3 mL 30 gauge x 1/2 USE TO INJECT 1-4 TIMES DAILY DIRECTED. active Not Available Not Available No t Available cholecalcif luigi (vitamin D3) 25 mcg (1,000 unit) tablet TAKE 1 TABLET (25 MCG) BY MOUTH IN THE MORNING active Not Available Not Available No t Available Pulmicort Flexhaler 180 mcg/actuati on breath activated INHALE 1 DOSE TWICE A DAY 12/25 completed Not Available Not Available Not Available Invega Sustenna 156 mg/mL intramuscul ar syringe PLEASE SEE ATTACHED FOR DETAILED DIRECTION S 12/25 completed Not Available Not Available Not Available Invega Sustenna 117 mg/0.75 mL intramuscul ar syringe INJECT 0.75 ML (117 MG) INTO THE SHOULDER, THIGH, OR BUTTOCKS EVERY 30 (THIRTY) DAYS. 12/25 completed Not Available Not Available Not Available Invega Sustenna 234 mg/1.5 mL intramuscul ar syringe PLEASE SEE ATTACHED FOR DETAILED DIRECTION S 12/25 completed Not Available Not Available Not Available doxepin 6 mg tablet TAKE 1 TABLET (6 MG) BY MOUTH AT BEDTIME. 12/25 completed Not Available Not Available Not Available Viibryd 10 mg tablet TAKE 1 TABLET BY MOUTH EVERY DAY active Not Available Not Available No t Available vilazodone 40 mg tablet TAKE 1 TABLET BY MOUTH EVERY DAY IN THE MORNING 12/25 completed Not Available Not Available Not Available Viibryd 20 mg tablet TAKE 1 TABLET BY MOUTH EVERY DAY active Not Available Not Available No t Available Myrbetriq 25 mg tablet,exte nded release TAKE 1 TABLET BY MOUTH EVERY DAY 12/25 completed Not Available Not Available Not Available Myrbetriq 50 mg tablet,exte nded release TAKE 1 TABLET BY MOUTH EVERY DAY SAME TIME DAILY 12/25 completed Not Available Not Available Not Available FreeStyle Precision Qasim Strips USE DIRECTED TO TEST BLOOD SUGARS 3 TIMES A DAY active Not Available Not Available No t Available Vraylar 6 mg capsule TAKE 1 CAPSULE BY MOUTH EVERY DAY 12/25 completed Not Available Not Available Not Available Trintellix 5 mg tablet TAKE 5 MG BY MOUTH ONCE PER DAY. TAKE WITH 10 MG TO EQUAL 15 MG DAILY 12/25 completed Not Available Not Available Not Available Trintellix 10 mg tablet TAKE 1 TABLET BY MOUTH EVERY DAY 12/25 completed Not Available Not Available Not Available Trintellix 20 mg tablet TAKE 1 TABLET (20 MG) BY MOUTH ONCE PER DAY. active Not Available Not Available No t Available Basaglar KwikPen U-100 Insulin 100 unit/mL (3 mL) subcutaneou s INJECT 82 UNITS UNDER THE SKIN AT BEDTIME. active Not Available Not Available No t Available Fiasp FlexTouch U-100 Insulin 100 unit/mL (3 mL) subcutaneou s pen INJECT 6 UNITS SUBCUTANE OUSLY 3 TIMES A DAY IMMEDIATE LY BEFORE BREAKFAST , LUNCH, & DINNER 12/25 completed Not Available Not Available Not Available levothyroxi ne 175 mcg capsule TAKE 1 CAPSULE BY MOUTH DIRECTED DAILY EXCEPT FRIDAYS TAKE 2 CAPSULES 12/25 completed Not Available Not Available Not Available OneTouch Delica Plus Lancet 33 gauge CHECK GLUCOSE 3 TIMES A DAY active Not Available Not Available No t Available Lybalvi 5 mg-10 mg tablet TAKE 1 TABLET BY MOUTH EVERY DAY 12/25 completed Not Available Not Available Not Available Fidelia 2nd Gen Pen Needle 32 gauge x 5/32 INJECT 1 EACH UNDER THE SKIN 4 TIMES DAILY. active Not Available Not Available No t Available Vitals Date Recorded Body height Provider Name an d Address Organization Details Last Updated DateTime 12/31/2024 157.48 cm DOMENIC GUILLEN [facility] 12/31/2024 14:28:54 Date Recorded Body height Provider Name an d Address Organization Details Last Updated DateTime 04/01/2025 157.48 cm DOMENIC GUILLEN [facility] 04/01/2025 15:30:39 Date Recorded Body height Body mass index (BMI) Body weight Heart rate Provider Name and Address Organization Details Last Updated DateTime 07/09/2024 157.48 cm 69.5 kg/m2 860139.1 g 6 /min KENNY TORRES [facility] 07/09/2024 14:24:15 Date Recorded Body height Provider Name an d Address Organization Details Last Updated DateTime 07/15/2025 157.48 cm DOMENIC GUILLEN [facility] 07/15/2025 14:55:05 Date Recorded Body height Provider Name an d Address Organization Details Last Updated DateTime 10/08/2024 157.48 cm DOMENIC GUILLEN [facility] 10/08/2024 14:49:10 Social History None recorded. Functional Status None recorded. Mental Status None recorded. Family History Nothing Reported. Medical History Condition Response Allergies/Hayfever N Coronary Artery Disease N Breathing or lung disorders Y Anxiety/Depression N Emphysema N Nerve Disorders N Thyroid Problems Y COPD N Pacemaker N Anemia N Kidney/Bladder Problems N Vascular Disease N Heart Trouble N Heart Attack ([place]) N Gastrointestinal Disease N Cholesterol Y Diabetes Y Autoimmune disease N Inflammatory Joint disease N Bleeding Disorder N Orthotics N Arthritis N Seizures/Epilepsy N Blood Clot N AIDS/HIV N Congestive Heart Failure (CHF) N Acid Reflux (GERD) N Cancer N Stroke N Asthma Y Circulation Problems N Peripheral Vascular Disease N Sleep Apnea N Hepatitis N Heart Disease N Rheumatoid Arthritis N Arrhythmia N Pulmonary Embolism N Headaches N Fibromyalgia N Hypertension N Osteoporosis N Gynecological HistoryNo gynecological history recorded. Obstetrics History GPAL:G 0 P 0 0 0 0 Past Encounters Encounter ID Performer Location Encounter Start Date Encounter Closed Date Diagnosis/Indication Diagnosis SNOMED-CT Code Diagnosis ICD10 Code Diagnosis IMO Codes Diagnosis Note [id number] LEEANN Ribeiro [address] [place] [address] 03/27/2024 13:58:04 04/16/2024 13:21:33 Pain of right knee joint 7094478222 60348 M25.561 Osteoarthr itis of left knee joint 2132326280 03135 M17.12 [id number] Robert Conde PA-C [facility] [address] [place] [address] 07/09/2024 14:07:17 07/30/2024 11:29:18 Osteoarthritis of left knee joint 3733200159 27186 M17.12 Pain of ri ght knee joint 0862454784 56653 M25.020 [id number] Robert Conde PA-C [facility] [address] [place] [place] [address] 10/08/2024 14:46:36 11/03/2024 13:40:49 Osteoarthritis of left knee joint 3298297816 63259 M17.12 4237373 Osteoarthr itis of right knee joint 3124990933 M17.11 [id number] LEEANN [facility] [address] [place] [address] 12/31/2024 14:17:58 01/12/2025 12:14:57 Osteoarthritis of left knee joint 4087321411 88785 M17.12 1586114 Osteoarthr itis of right knee joint 6524495685 M17.11 [id number] L[facility] [address] [place] [address] 04/01/2025 15:11:57 04/08/2025 14:00:33 Osteoarthritis of left knee joint 0278661675 40191 M17.12 [id number] Osteoarthr itis of right knee joint 9095012658 M17.11 [id number] L[facility] [address] [place] [address] 07/15/2025 14:51:53 07/23/2025 15:49:13 Osteoarthritis of left knee joint 5628568115 01809 M17.12 [id number] Osteoarthr itis of right knee joint 1388613700 M17.11 [id number] Health Concerns Section Related Observation LastModified by Organization Detai ls LastModified Time None Recorded Concern Status LastModified by Organization Details LastModified Time None Recorded Advance Directives Directive None Recorded Payers Insurance Date Sequence Insurance Name Policy Number Policy [employer] Covered Member ID [employer] Member ID Guarantor Name 07/15/2025 1 [place] [employer] Elyssa Silva [employer] [id number] Elyssa Silva [employer] 07/15/2025 2 [place] [facility] Elyssa A Farhat [id number] Elyssa Silva [employer] Notes Date Note Type Note Provider Name and Address Organization Details Recorded Time 07/09/2024 text/html I am seeing the patient today under the supervision of who was available but who did not see the patient. Chief Complaint The patient presents today for recheck of bilateral knee osteoarthritis. Is known to have knee arthritis treated conservatively to this point with 2 months relief of symptoms. Presents today for recheck secondary to increased knee pain. History of Present Illness Allergy list reviewed Medication list reviewed Past Medical/Surgical History Reviewed today, otherwise unchanged per intake sheet. Physical Findings General Appearance: Well developed. In no acute distress. Musculoskeletal System: Knee: General/bilateral: No laxity of the knee. Right Knee: Medial aspect was tender on palpation. No erythema. No warmth. Left Knee: Medial aspect was tender on palpation. No erythema. No warmth. Musculoskeletal Scales: General/bilateral: Mild effusion noted. Neurological: Oriented to time, place, and person. Gait And Stance: Normal. Psychiatric: Mood was appropriate to the affect. Left knee 0-120 degrees of flexion with discomfort. Right knee 0-120 degrees of flexion with discomfort. Assessment Osteoarthritis of knee -bilateral knees Plan More than 50% of todays visit was spent on direct patient counseling regarding their knee condition and treatment options both operative with knee arthroplasty and non-operative, including oral medications and injection therapy. After discussion, my clinical decision was to go forth with an intra-articular cortisone injection. After explaining risks and benefits, under meticulous aseptic technique, each knee was injected with, 1cc of Kenalog 40mgs and 4 cc of Marcaine 1/4%. They tolerated the procedures well. Post injection precautions reviewed. Follow up with us in 3 months for further discussion of total knee replacement surgery versus continued conservative treatment. Robert Conde PA-C [address], [place], [address], [facility] 07/14/2024 07:26:56 10/08/2024 text/html I am seeing the patient today under the supervision of who was available but who did not see the patient. Chief Complaint The patient presents today for recheck of bilateral knee osteoarthritis. Is known to have knee arthritis treated conservatively to this point with 3 months relief of symptoms. Presents today for recheck secondary to increased knee pain. History of Present Illness Allergy list reviewed Medication list reviewed Past Medical/Surgical History Reviewed today, otherwise unchanged per intake sheet. Physical Findings General Appearance: Well developed. In no acute distress. Musculoskeletal System: Knee: General/bilateral: No laxity of the knee. Right Knee: Medial aspect was tender on palpation. No erythema. No warmth. Left Knee: Medial aspect was tender on palpation. No erythema. No warmth. Musculoskeletal Scales: General/bilateral: Mild effusion noted. Neurological: Oriented to time, place, and person. Gait And Stance: Normal. Psychiatric: Mood was appropriate to the affect. Left knee 0-120 degrees of flexion with discomfort. Right knee 0-120 degrees of flexion with discomfort. Assessment Osteoarthritis of knee -bilateral knees Plan More than 50% of todays visit was spent on direct patient counseling regarding their knee condition and treatment options both operative with knee arthroplasty and non-operative, including oral medications and injection therapy. After discussion, my clinical decision was to go forth with an intra-articular cortisone injection. After explaining risks and benefits, under meticulous aseptic technique, each knee was injected with, 1cc of Kenalog 40mgs and 4 cc of Marcaine 1/4%. They tolerated the procedures well. Post injection precautions reviewed. Follow up with us in 3 months for further discussion of total knee replacement surgery versus continued conservative treatment. Robert Conde PA-C [address], [place], [address], [facility] 10/08/2024 15:02:32 12/31/2024 text/html I am seeing the patient today under the supervision of who was available but who did not see the patient. Chief Complaint The patient presents today for recheck of bilateral knee osteoarthritis. Is known to have knee arthritis treated conservatively to this point with 3 months relief of symptoms. Presents today for recheck secondary to increased knee pain. History of Present Illness Allergy list reviewed Medication list reviewed Past Medical/Surgical History Reviewed today, otherwise unchanged per intake sheet. Physical Findings General Appearance: Well developed. In no acute distress. Musculoskeletal System: Knee: General/bilateral: No laxity of the knee. Right Knee: Medial aspect was tender on palpation. No erythema. No warmth. Left Knee: Medial aspect was tender on palpation. No erythema. No warmth. Musculoskeletal Scales: General/bilateral: Mild effusion noted. Neurological: Oriented to time, place, and person. Gait And Stance: Normal. Psychiatric: Mood was appropriate to the affect. Left knee 0-120 degrees of flexion with discomfort. Right knee 0-120 degrees of flexion with discomfort. Assessment Osteoarthritis of knee -bilateral knees Plan More than 50% of todays visit was spent on direct patient counseling regarding their knee condition and treatment options both operative with knee arthroplasty and non-operative, including oral medications and injection therapy. After discussion, my clinical decision was to go forth with an intra-articular cortisone injection. After explaining risks and benefits, under meticulous aseptic technique, each knee was injected with, 1cc of Kenalog 40mgs and 4 cc of Marcaine 1/4%. They tolerated the procedures well. Post injection precautions reviewed. Follow up with us in 3 months for further discussion of total knee replacement surgery versus continued conservative treatment. Robert Conde PA-C [address] [facility] [address], [place], [address], [facility] 12/31/2024 15:24:59 04/01/2025 text/html I am seeing the patient today under the supervision of who was available but who did not see the patient. Chief Complaint The patient presents today for recheck of bilateral knee osteoarthritis. Is known to have knee arthritis treated conservatively to this point with 2 months relief of symptoms. Presents today for recheck secondary to increased knee pain. History of Present Illness Allergy list reviewed Medication list reviewed Past Medical/Surgical History Reviewed today, otherwise unchanged per intake sheet. Physical Findings General Appearance: Well developed. In no acute distress. Musculoskeletal System: Knee: General/bilateral: No laxity of the knee. Right Knee: Medial aspect was tender on palpation. No erythema. No warmth. Left Knee: Medial aspect was tender on palpation. No erythema. No warmth. Musculoskeletal Scales: General/bilateral: Mild effusion noted. Neurological: Oriented to time, place, and person. Gait And Stance: Normal. Psychiatric: Mood was appropriate to the affect. Left knee 0-120 degrees of flexion with discomfort. Right knee 0-120 degrees of flexion with discomfort. Assessment Osteoarthritis of knee -bilateral knees Plan More than 50% of todays visit was spent on direct patient counseling regarding their knee condition and treatment options both operative with knee arthroplasty and non-operative, including oral medications and injection therapy. After discussion, my clinical decision was to go forth with an intra-articular cortisone injection. After explaining risks and benefits, under meticulous aseptic technique, each knee was injected with, 1cc of Kenalog 40mgs and 4 cc of Marcaine 1/4%. They tolerated the procedures well. Post injection precautions reviewed. Follow up with us in 3 months for further discussion of total knee replacement surgery versus continued conservative treatment. Robert Conde PA-C [address] [facility] [address], [place], [address], [facility] 04/01/2025 16:26:04 07/15/2025 text/html I am seeing the patient today under the supervision of who was available but who did not see the patient. Chief ComplaintThe patient presents today for recheck of bilateral knee osteoarthritis. Is known to have knee arthritis treated conservatively to this point with 2 months relief of symptoms. Presents today for recheck secondary to increased knee pain. History of Present Illness Allergy list reviewed Medication list reviewed Past Medical/Surgical HistoryReviewed today, otherwise unchanged per intake sheet. Physical Findings General Appearance: Well developed. In no acute distress.Musculoskelet al System:Knee:General/bi lateral: No laxity of the knee.Right Knee: Medial aspect was tender on palpation. No erythema. No warmth.Left Knee: Medial aspect was tender on palpation. No erythema. No warmth.Musculoskeletal Scales:General/bilater al: Mild effusion noted.Neurological: Oriented to time, place, and person.Gait And Stance: Normal.Psychiatric: Mood was appropriate to the affect. Left knee 0-120 degrees of flexion with discomfort.Right knee 0-120 degrees of flexion with discomfort. Assessment Osteoarthritis of knee -bilateral knees PlanMore than 50% of todays visit was spent on direct patient counseling regarding their knee condition and treatment options both operative with knee arthroplasty and non-operative, including oral medications and injection therapy. After discussion, my clinical decision was to go forth with an intra-articular cortisone injection. After explaining risks and benefits, under meticulous aseptic technique, each knee was injected with, 1cc of Kenalog 40mgs and 4 cc of Marcaine 1/4%. They tolerated the procedures well. Post injection precautions reviewed. Follow up with us in 3 months for further discussion of total knee replacement surgery versus continued conservative treatment. Problem #2 This patient show significant signs of lymphedema secondary toobesity. Location of lymphedema is bilateral lower extremities Date of onset is specifically unknown however has been present for some time and has been present since our last visit. Physical examination findings are significant for weeping. Recurrent cellulitis,Recurrent cellulitis, hyperpigmentation hyperpigmentation and pitting edema and pitting edema Conservative treatment has been present since our last visit on . Has been using ice, elevation and regular lower extremity exercises and ankle pumps. She has been using compression wraps for a number of years. At this point given the continued swelling in the lower extremities were recommended pneumatic compression devices. Robert Conde PA-C [address] [facility] [address], [place], [address], [facility] 07/15/2025 16:42:38 OBGyn Episode No OBEpisode recorded.
--- OUTSIDE RECORDS SUMMARY | 2025-08-04 13:29 | XMS_ITS | Encounter Summary ---
Author Organization [employer] Address [address] [place] [address] [address] [place] [address] Care Team Providers Care Medical Superintendent Name Role Phone Lei Thacker Unavailable Unavailable Encounter Details Date Type Department Care Team (Late st Contact Info) Description 07/22/2025 Results [facility] MEDICAL [address] [place] [address] Sharmila Azar DO [address] [place] [address] TSH with Reflex to Free T4 [[id number]] Social History Tobacco Use Types Packs/Day Years [...] as of this encounter Care Teams Medical Superintendent Relationship Specialty Start Date End Date Lei Thacker Health Navigator 09/17/24 documented as of this encounter
--- OUTSIDE RECORDS SUMMARY | 2025-08-04 13:29 | XMS_ITS | Encounter Summary ---
Author Organization [employer] Address [address] [place] [address] 7t [place] [address] Care Team Providers Care Weigh And Charge Worker Name Role Phone Francheska Tucker MADELEINE Primary Care Provider Lei Thacker Unavailable Unavailable Sharmila Azar DO Primary Care Provider [phone] Inactive/Transferred Primary Care Provider Unava ilable Reason for Visit * Reason Comments Med Change Request Encounter Details Date Type Department Care Team (Late st Contact Info) Description 01/16/2024 Oneyda Stewart [facility] MEDICAL [address] [place] [address] Amira Singh FNP Social History Tobacco Use [...] RX filled out yesterday and faxed to [facility] documented in this encounter Plan of Treatment Not on file documented as of this encounter Visit Diagnoses Not on filedocumented in this encounter Care Teams Weigh And Charge Worker Relationship Specialty Start Date End Date Francheska Tucker FNP [address] [place] [address] PCP - General Family Medicine 10/25/23 11/01/24 Sharmila Azar DO [address] [place] [address] PCP - General Family Medicine 11/02/24 06/17/25 Inactive/Transferred PCP - General 06/18/25 06/18/25 Lei Thacker Health Navigator 09/17/24 documented as of this encounter
--- OUTSIDE RECORDS SUMMARY | 2025-08-04 13:29 | XMS_ITS | Encounter Summary ---
Author Organization [employer] Address [address] [place] [address] 7 [place] [address] Care Team Providers Care Press Breaker Name Role Phone Lei Thacker Unavailable Unavailable Sharmila Azar DO Primary Care Provider [phone] Inactive/Transferred Primary Care Provider Unava ilable Reason for Visit * Reason Onset Date Comments Med Refill 12/11/2024 Encounter Details Date Type Department Care Team (Late st Contact Info) Description 12/11/2024 Refill [place] [facility] MEDICAL [address] [place] [address] Sharmila Azar DO [address] [place] [address] Anxiety; PTSD (post-traumatic stress disorder) Social History [...] documented as of this encounter Care Teams Press Breaker Relationship Specialty Start Date End Date Sharmila Azar DO [address] [place] [address] PCP - General Family Medicine 11/02/24 06/17/25 Inactive/Transferred PCP - General 06/18/25 06/18/25 Lei Thacker Health Navigator 09/17/24 documented as of this encounter
--- OUTSIDE RECORDS SUMMARY | 2025-08-04 13:29 | XMS_ITS | Encounter Summary ---
Author Organization [employer] Address [address] [place] [address] 7 [place] [address] Care Team Providers Care Clamp Remover Name Role Phone Lei Thacker Unavailable Unavailable Sharmila Azar DO Primary Care Provider [phone] Inactive/Transferred Primary Care Provider Unava ilable Reason for Visit * Reason Comments Med Refill Encounter Details Date Type Department Care Team (Late st Contact Info) Description 11/09/2024 Refill Pat [facility] MEDICAL [address] [place] [address] Francheska Tucker FNP [address] [place] [address] Acquired hypothyroidism Social History Tobacco Use Types [...] documented as of this encounter Care Teams Clamp Remover Relationship Specialty Start Date End Date Sharmila AzarDO [address] [place] [address] PCP - General Family Medicine 11/02/24 06/17/25 Inactive/Transferred PCP - General 06/18/25 06/18/25 Lei Thacker Health Navigator 09/17/24 documented as of this encounter
--- OUTSIDE RECORDS SUMMARY | 2025-08-04 13:29 | XMS_ITS | Encounter Summary ---
Author Organization [employer] Address [address] [place] [address] 7 [place] [address] Care Team Providers Care Lemon Grower Name Role Phone Shilpa Miller CNP Primary Care Provider [phone] Francheska Tucker Primary Care Provider [phone] Lei Thacker Unavailable Unavailable Sharmila Azar DO Primary Care Provider [phone] Inactive/Transferred Primary Care Provider Unava ilable Encounter Details Date Type Department Care Team (Late st Contact Info) Description 10/26/2022 Abstract Pat [facility] MEDICAL [address] [place] [address] Shilpa Miller CNP [address] [place] [address] Social History Tobacco Use Types Packs/Day Years [...] Results * (ABNORMAL) Hemoglobin A1c (06/28/2022) Pathologist [facility] Hemoglobin A1C 7.6(A) 4.0 - 6.0 % Blood Venous blood specimen / Unknown Historical Provider LAB BLOOD ORDERABLES Layla l Result * Lipid Panel, Standard (06/06/2022) Pathologist [facility] Triglycerides 98 40 - 160 mg/dL Cholesterol 138 0 - 200 mg/dL HDL Cholesterol 60 35 - 70 mg/dL LDL Cholesterol 58 mg/dL Blood Venous blood specimen / Unknown Historical Provider LAB BLOOD ORDERABLES Layla l Result * Mammography (12/25/2021) Pathologist [facility] Mammogram BI RADS: 2 Benign Anatomical Region Laterality Modality Other [facility] Provider HEALTH MAINTENANCE Final Result documented in this encounter Visit Diagnoses Not on filedocumented in this encounter Care Teams Lemon Grower Relationship Specialty Start Date End Date Shilpa Miller CNP [address] [place] [address] PCP - General Family Medicine 10/16/22 10/24/23 Francheska Tucker FNP [address] [place] [address] PCP - General Family Medicine 10/25/23 11/01/24 Sharmila Azar DO [address] [place] [address] PCP - General Family Medicine 11/02/24 06/17/25 Inactive/Transferred PCP - General 06/18/25 06/18/25 Lei Thacker Health Navigator 09/17/24 documented as of this encounter
--- OUTSIDE RECORDS SUMMARY | 2025-08-04 13:29 | XMS_ITS | Patient Health Record ---
Author Organization [facility] Address [address] [facility] [address] [place] [address] Care Team Providers Care Reconciliation Manager Name Role Phone Laisha Castañeda Unavailable [phone] Reason For Referral No Information Medications Medication SIG (Take, Route, Frequency, Duration) Notes Start Date End Date Status Viibryd 40MG ORAL; Duration: - [facility] 04/28/2014 Active Vitamin D3 1000 IU ORAL daily; Duration: - [facility] 2013 Active Aspirin EC 81MG 1 ORAL daily; Durati on: - [facility] 04/28/2014 Active Nebulizer ORAL; Duration: - [facility] 04/28/2014 Active oxyCODONE HCl 5MG ORAL; Duration: - [facility] 04/28/2014 Active Pravastatin Sodium 20MG 1 ORAL daily; Du ration: - [facility] 04/28/2014 Active Singulair 10MG ORAL; Duration: - [facility] 04/28/2014 Active Combivent 103-18 2 INHALE four times daily; Duration: - [facility] 04/28/2014 Active KlonoPIN 0.5MG ORAL four times shannon y; Duration: [facility] 04/28/2014 Active Levothyroxine Sodium 125MCG 1 ORAL daily ; Duration: - [facility] 04/28/2014 Active metFORMIN HCl ER 500MG ORAL; Duration: - [facility] 04/28/20 14 Active Problems Problem Type SNOMED Code ICD Code Onset Dates Problem Status W/U Status Risk Notes Problem Hypothyroidism (88826513) Unspecified hypothyroidism (244.9) Active confirmed Problem Type II diabetes mellitus without complication (426944812) Diabetes mellitus without mention of complication, type II or unspecified type, not stated as uncontrolled (250.00) Active confirmed Problem Pure hypercholesterolemia (826699680) Pure hypercholesterolemia (272.0) Active confirmed Problem Morbid obesity (896969424) Morbid obesity (278.01) Active confirmed Problem Schizoaffective disorder (26321662) Schizoaffective disorder, unspecified (295.70) Active confirmed Problem Panic disorder with agoraphobia (91505529) Agoraphobia with panic disorder (300.21) Active confirmed Problem Obsessive-compulsive disorder (565664555) Obsessive-compulsive disorders (300.3) Active confirmed Problem Posttraumatic stress disorder (19023795) Posttraumatic stress disorder (309.81) Active confirmed Problem Attention deficit hyperactivity disorder (728205856) 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) Active confirmed Problem Migraine (disorder) (22934503) Migraine, unspecified without mention of intractable migraine without mention of status migrainosus (346.90) Active confirmed Problem Asthma (disorder) (722071289) Asthma, unspecified, unspecified status (493.90) Active confirmed Problem Sleep apnea (01555782) Unspecified sleep apnea (780.57) Active confirmed Problem Hypertension (63068907) Hypertension (401.9) Active confirmed Plan Of Treatment No Information Insurance Providers Payer Name Payer Address Payer Phone Subscriber Number Group Number Insured Name Patient Relationship to Insured Coverage Start Date Coverage End Date MEDICARE [address] [place] [id number] SEBASTIÁN GARCIA Self - patient is the [...]
--- OUTSIDE RECORDS SUMMARY | 2025-08-04 13:29 | XMS_ITS | Encounter Summary ---
Author Organization [employer] Address [address] [place] [address] 7t [place] [address] Care Team Providers Care Head Waitress Name Role Phone Francheska Tucker MADELEINE Primary Care Provider [phone] Lei Thacker Unavailable Unavailable Sharmila Azar DO Primary Care Provider [phone] Inactive/Transferred Primary Care Provider Unava ilable Reason for Visit * Reason Comments Med Refill Encounter Details Date Type Department Care Team (Late st Contact Info) Description 03/21/2024 Refill Pat [facility] MEDICAL [address] [place] [address] Shilpa Miller, ROCK LOADER [address] [place] [address] Type 2 diabetes mellitus with diabetic polyneuropathy, with long-term current use of insulin ([facility]) Social History Tobacco [...] Noted Time PHQ-9 Depression Total Score: 24 02/18/2 024 3:40 PM EDT documented as of this encounter Care Teams Head Waitress Relationship Specialty Start Date End Date Francheska Tucker FNP [address] [place] [address] PCP - General Family Medicine 10/25/23 11/01/24 Sharmila Azar DO [address] [place] [address] PCP - General Family Medicine 11/02/24 06/17/25 Inactive/Transferred PCP - General 06/18/25 06/18/25 Lei Thacker Health Navigator 09/17/24 documented as of this encounter
--- OUTSIDE RECORDS SUMMARY | 2025-08-04 13:29 | XMS_ITS | Encounter Summary ---
Author Organization [employer] Address [address] [place] [address] [address] [place] [address] Care Team Providers Care Equipment Engineer Name Role Phone Lei Thacker Unavailable Unavailable Sharmila Azar DO Primary Care Provider Inactive/Transferred Primary Care Provider Unava ilable Reason for Visit * Reason Onset Date Comments Med Refill 11/27/2024 Encounter Details Date Type Department Care Team (Late st Contact Info) Description 11/27/2024 Refill [facility] MED[facility] [address] [place] [address] Sharmila Azar DO [address] [place] [address] Anxiety; PTSD (post-traumatic stress disorder) Social History [...] documented as of this encounter Care Teams Equipment Engineer Relationship Specialty Start Date End Date Sharmila Azar DO [address] [place] [address] PCP - General Family Medicine 11/02/24 06/17/25 Inactive/Transferred PCP - General 06/18/25 06/18/25 Lei Thacker Health Navigator 09/17/24 documented as of this encounter
[2025-08-04 14:13] LABS: Free T4 (Free Thyroxine) 1.38 ng/dL (0.71-1.85)
== END 2025-08-04 12:24 | disposition home or self-care (01) ==
LOC: HO.10HDL 12:23
PROVIDERS: Visit Provider Student in an Organized Health Care Education/Training Program
DX: E06.3 Autoimmune thyroiditis (principal); E11.8 Type 2 diabetes mellitus with unspecified complications
CPT/HCPCS: 36415; 82570; 84439; 84443; 86341

== ENCOUNTER 2025-08-07 09:56 | Outpatient (AMB) | payer MEDICARE, MEDICAID, SELFPAY ==
[2025-08-07 09:59] VITALS: BP 140/82; PULSE 96; TEMP 36.6; O2SAT 98; BMI 65.8
--- NOTE | 2025-08-07 09:59 | MHC.PC.OV ---
Vital Signs 08/07/25 09:59 Height 5 ft 2 in Weight 360 lb BMI 65.8 BP 140/82 H Blood Pressure Location Rt radial Position Sitting Pulse 96 Pulse Source Pulse Oximeter Temp 97.8 F Temp Source Oral Pulse Oximetry (%) 98 Oxygen Delivery Method Room Air Intake Visit Reasons: 2 week 30 min complex fu Allergies lamotrigine (From Lamictal) Allergy (Severe, Verified 08/07/25 10:44) Muscle Pain lithium Allergy (Severe, Verified 08/07/25 10:44) seizures omalizumab (Xolair) Allergy (Severe, Verified 08/07/25 10:44) anaphylaxis penicillin G Allergy (Severe, Verified 08/07/25 10:44) Anaphylaxis Sulfa (Sulfonamide Antibiotics) Allergy (Severe, Verified 08/07/25 10:44) anaphylaxis sulfamethoxazole (From Bactrim) Allergy (Severe, Verified 08/07/25 10:44) Anaphylaxis sumatriptan Allergy (Severe, Verified 08/07/25 10:44) Unknown trimethoprim (From Bactrim) Allergy (Severe, Verified 08/07/25 10:44) Anaphylaxis vortioxetine (From Trintellix) Allergy (Severe, Verified 08/07/25 10:44) serotin toxicity acetaminophen (From Tylenol) Allergy (Intermediate, Verified 08/07/25 10:44) Hives desvenlafaxine Allergy (Intermediate, Verified 08/07/25 10:44) Wheezing iodine Allergy (Intermediate, Verified 08/07/25 10:44) Rash ziprasidone Allergy (Intermediate, Verified 08/07/25 10:44) Seizure insulin aspart (From Novolog U-100 Insulin aspart) Allergy (Mild, Verified 08/07/25 10:44) Rash pediatric multivitamin no.130 (From Floriva Plus (with biotin)) Allergy (Mild, Verified 08/07/25 10:44) hives sodium fluoride (From Floriva Plus (with biotin)) Allergy (Mild, Verified 08/07/25 10:44) hives amoxicillin Allergy (Unknown, Verified 08/07/25 10:44) Unknown azithromycin (Zithromax) Allergy (Unknown, Verified 08/07/25 10:44) Unknown furosemide (Lasix) Allergy (Unknown, Verified 08/07/25 10:44) Unknown hydrochlorothiazide Allergy (Unknown, Verified 08/07/25 10:44) Unknown lisinopril Allergy (Unknown, Verified 08/07/25 10:44) Unknown metformin Allergy (Unknown, Verified 08/07/25 10:44) Unknown montelukast (Singulair) Allergy (Unknown, Verified 08/07/25 10:44) Unknown pravastatin Allergy (Unknown, Verified 08/07/25 10:44) Unknown spironolactone Allergy (Unknown, Verified 08/07/25 10:44) Unknown sulfacetamide Allergy (Unknown, Verified 08/07/25 10:44) Unknown gabapentin Allergy (Verified 08/07/25 10:44) night sweats liraglutide Adverse Reaction (Intermediate, Verified 08/07/25 10:44) Nausea and Vomiting semaglutide Adverse Reaction (Intermediate, Verified 08/07/25 10:44) Nausea and Vomiting zolair Allergy (Severe, Uncoded 07/29/25 13:00) Anaphylaxis JAYRO INHIBITORS Allergy (Unknown, Uncoded 07/29/25 13:00) Unknown LATEX Allergy (Unknown, Uncoded 07/29/25 13:00) Unknown NSAIDS Allergy (Unknown, Uncoded 07/29/25 13:00) Unknown SHELLFISH Allergy (Unknown, Uncoded 07/29/25 13:00) Unknown Sulfacet-R Allergy (Unknown, Uncoded 07/29/25 13:00) Unknown TREE NUTS Allergy (Unknown, Uncoded 07/29/25 13:00) Unknown Tobacco use date assessed: 07/22/25 Dental Screening Dental Screen Date: 07/22/25 HPI HPI Comments History of Present Illness Details Here today for close interim complex fu Since the last visit she filed a complaint to transfer care as she did not like me When i entered the room, she was shaking her legs and quite rude. I told her that i wanted to address her transfer and ask what it is that i can do to help We aren't connecting. My last visit was a mess..you got everything wrong in the visit summary She would not elaborate. I got the licensing officer to meet with her to review her options to go forward. There is nothing oustanding from my point I have sent her results via the portal. Based on review of records she has complaints with much of her health care team/services. Be that as it may, i respectfully will sign off on this case and she can seek care with new PCP. At previous visit Qiana 55 y/o F with bilat knee OA, lymphedema, MIRIAN, MDD, DM2 with complications, neuropathy, GERD, HLD, HTN, Hypothyroid, Migraine, Asthma, Urinary incont, CORRINA on CPAP, PCOS, PTSD, Rosacea, Schizoaffective disorder, Seasonal allergies, obesity, Vit D Def, menopause s/p c section, right knee arthroscopy, tonsillectomy Fhx:Mom stroke, DM, heart dz, htn, throid s/p AL; Dad lung ca + smoker; brother alive and well; 2 dtrs one w/ autism 1 with anxiety Health Maintenance Tdap 2023 Pap 07/2023 wnl Mammo 04/25/25 colon casas Specialists: Allergy [facility] rehab for lymphedema and hearing center [place] [facility] - [facility] referral [facility], Dr Amy Segura in [place], Eye exam 06/2025 @ [facility] Negative for retinopathy, + narrow angle w/o glaucoma DME: CPAP [facility] History of Present Illness - The patient is a 55-year-old female presenting to [facility] with a complex medical hx; previous PCP [facility] records rec'd and reviewed - She reports recent abnormal laboratory results done at [facility]. 07/16/25. I dont have these but have requested & was able to review after the visit. See below. - Diabetes management history: HBA1c improved from 8% in November to 7.1% in June. Weight reduced from 394 to 370 pounds from November to June. - Patient utilizes CGM for diabetes tracking. - managed by [facility] endo in past; wants referral to [facility] endo. 06/16/25 7.1% - Recent diabetic eye exam showed risk for angle closure glaucoma. - Requests referral for diabetic foot care - Psych managed by outside prescriber. Reports serotonin syndrome in the past. - Multiple med allergies - Previous PCP sent her a message to have UA, BNP, Blood cultures, Anti neutrophil cytoplasimic drawn to f/u on labs 07/20/25. I have ordered thse for her - CORRINA on CPAP managed; after the visit she called referrals asking for referral to [facility] Sleep/Neuro. Will hold of until she clarifies this as she is scheduled to see neuro in [facility] for initial consult and has a Sleep/Pulm MD Review of Systems - Constitutional: Reports fatigue and stress. - Endocrinological: Reports prior endocrinological issues; concerns about medication misprescription. - Ophthalmological: Reports narrow ducts but reassured by retinal specialist. - Cardiovascular: Reports family history of congestive heart failure; heart murmur identified. - Metabolic: Reports hyperglycemia, weight loss, and CGM use for diabetes management. - Musculoskeletal: Reports rheumatoid arthritis testing. - Integumentary: Reports leg cramps and nail care issues. - Neurological: Denies recent neurological evaluations. - Psychiatric: Reports ongoing stress and therapy for mood. Physical Exam General: Well developed, well nourished, in no acute distress. Appears stated age. Head: Normocephalic, atraumatic. Eyes: Pupils are equal, round and reactive to light and accommodation. Conjunctivae are clear. Lungs: Clear to auscultation bilaterally. No rales, rhonchi or wheeze noted. Good air flow in all talbert. Heart: Regular rate and rhythm. A heart murmur is noted. Musculoskeletal: Walks w/ walker, slow steady gait; Lymphedema wraps BLE. Not removed for exam. Psych: Mood and affect appropriate. Reports stress and frustration with previous medical care. Results: 07/20/25 wbc 12.4, Neutrophils 7.7, Lymphs 3.8, Bun 26, Albumin 3.7, otherwise normal CMP and CBC, TSH 0.293, Rheum Factor, Anti-CCP Ab, IgG/IgA WNL, ROEL negative Discussion Notes I discussed with the patient the importance of reviewing abnormal lab results and the need for endocrinological consultation. I emphasized the plan to obtain laboratory records to provide a comprehensive assessment. Follow-up will ensure diabetes continues to be well-managed, noting recent improvements in blood glucose levels. We discussed endocrinological consultation to adjust her care plan, particularly for diabetes care and weight management. I acknowledged her past issues with medication prescriptions and agreed to review these. I highlighted that heart murmur auscultation warranted further evaluation with echocardiography. Additionally, I assured her a diabetic foot care referral and the importance of diligent eye exams given her glaucoma risk. We agreed on referrals for additional care services within our network and follow-ups in two weeks to ensure a coordinated care approach. Consent was duly obtained to make referrals and conduct further necessary diagnostic testing, with the patient informed of potential risks and management plans. Patient was given time to ask questions. All questions were answered to their satisfaction. Assessment and Plan 1. Abnormal laboratory results - Obtain and review prior results; plan endocrinological evaluations. - labs reviewed, see above. plan to check UA, BNP, Blood cultures, Anti neutrophil cytoplasimic per previous PCP 2.DM2 - Use CGM, monitor HBA1c; [facility] endo referral 3. Obesity - Support weight management 4. Risk for glaucoma - Ensure periodic follow-up; emphasize glaucoma risk management. 6. Heart murmur - Request echocardiography for cardiovascular assessment. 7. Diabetic foot care - Referral for diabetic foot care initiated. Patient Instructions - Schedule follow-up appointment in two weeks. - Complete referrals for endocrinology and foot care. - Attend echocardiography as scheduled. - Monitor blood sugar regularly using CGM. - Ensure regular eye exams for glaucoma risk. - Follow any dietary or lifestyle advice from the business law professor. - Contact us if you experience new or worsening symptoms, or have any concerns. Consent Patient was informed and verbally consented to the use of an ambient scribe for clinic note documentation during this visit. Total time spent caring for the patient today was 100 minutes. This includes time spent before the visit reviewing the chart, time spent during the visit, and time spent after the visit on documentation, reviewing laboratory results, diagnostic imaging, medications, performing a medically necessary evaluation, counseling on diagnoses, care coordination, ordering appropriate tests, ordering appropriate medications, review of tests performed by other providers, reporting test results with the patient, communication with other healthcare providers. [facility] Medical History Hx of seasonal allergies History of posttraumatic stress disorder (PTSD) Hx of mammogram (~04/2025) Torn meniscus Panic disorder Anxiety and depression Neuropathy Headache Incontinence GERD (gastroesophageal reflux disease) IBS (irritable bowel syndrome) Swelling Edema Osteoarthritis Arthritis Thyroid disorder Diabetes High cholesterol HTN (hypertension) Asthma Surgical History Hx of colonoscopy (~2018) History of tonsillectomy Previous section Family History Mother Asthma HTN (hypertension) High cholesterol Diabetes Cardiovascular disease Thyroid disorder Mental health disorder Maternal Grandmother HTN (hypertension) High cholesterol Cardiovascular disease Father High cholesterol Cardiovascular disease Lung cancer Mental health disorder Paternal Grandfather No problems noted. Maternal Grandfather Cardiovascular disease Paternal Grandmother Leukemia Social History Housing: House Alcohol intake: never Patient Tobacco Use Status: Never used Tobacco e-Cigarette/Vaping Use: Never Used Second Hand Smoke Exposure: No Current occupational status: disabled Cognitive needs: No Hearing needs: Yes (left hearing aide) Vision needs: Yes (wear glasses) Questionnaire PHQ-9 Over the last 2 weeks, how often have you been bothered by any of the following problems? 1. Little interest or pleasure in doing things: not at all 2. Feeling down, depressed, or hopeless: not at all 3. Trouble falling or staying asleep, or sleeping too much: nearly every day 4. Feeling tired or having little energy: nearly every day 5. Poor appetite or overeating: several days 6. Feeling bad about yourself - or that you are a failure or have let yourself or your family down: not at all 7. Trouble concentrating on things, such as reading the newspaper or watching television: more than half the days 8. Moving or speaking so slowly that other people could have noticed. Or the opposite - being so fidgety or restless that you have been moving around a lot more than usual: several days 9. Thoughts that you would be better off or of hurting yourself in some way: not at all Total score: 10 Depression Screening Interpretation: Positive Depression Screening Follow-up: Existing condition and In treatment Depression Screening Done: Yes Source: Developed by Drs. Timbo Newman, Gin Correa, Sunday Chirinos and colleagues, with an educational lauri from [email or web address]. Thrive Questionnaire Date Thrive assessed: 07/15/25 I am a: Patient What is your living situation today?: I have a steady place to live Within the past 12 months, did the food you bought not last and you didn't have the money to get more?: Often true Within the past 12 months, did you worry whether your food would run out before you got money to buy more?: Often true Do you have trouble paying for medicines?: No Do you have trouble getting transportation to medical appointments?: Yes Do you have trouble paying your heating and electricity bill?: Yes Do you have trouble taking care of your child, family member or friend?: No Do you have trouble with day-to-day activities such as bathing, preparing meals, shopping, managing finances, etc.?: No Are you currently unemployed and looking for a job?: No Are you interested in more education?: No Please select the resources that you would like help with: None Currently or been in a relationship where the following occur: No concerns reported THRIVE Score: 4 AUDIT C Alcohol Use Questionnaire (AUDIT-C) 1. How often do you have a drink containing alcohol?: Never 2. How many drinks containing alcohol do you have on a typical day when you are drinking?: 1 or 2 3. How often do you have six or more drinks on one occasion?: Never Total Score: 0 MIRIAN-7 AMB Questionnaire MIRIAN-7 Date MIRIAN - 7 assessed: 07/22/25 Feeling nervous, anxious, or on edge: 3 = Nearly every day Not being able to stop or control worryin = Nearly every day Worrying too much about different things: 3 = Nearly every day Trouble relaxin = Nearly every day Being so restless that it is hard to sit still: 3 = Nearly every day Becoming easily annoyed or irritable: 3 = Nearly every day Feeling afraid as if something awful might happen: 2 = More than half the days Total MIRIAN-7 score (0-4 normal; 5-9 mild; 10-14 moderate; 15-21 severe): 20 Source: Developed by Drs. Timbo Newman, Gin Correa, Sunday Chirinos and colleagues, with an educational lauri from [email or web address]. Physical exam (Primary Care) Vital Signs: Last Vital Signs Temp 97.8 F 08/07/25 09:59 Pulse 96 08/07/25 09:59 BP 140/82 H 08/07/25 09:59 Pulse Ox 98 08/07/25 09:59 Oxygen Delivery Method Room Air 08/07/25 09:59 BMI result Body Mass Index 65.8 Tobacco/Smoking Status: Tobacco use Status Tobacco use date assessed 07/22/25 08/07/25 10:07 Patient Tobacco Use Status Never used Tobacco 08/07/25 10:07 e-Cigarette/Vaping Use Never Used 08/07/25 10:07 PHQ-9: PHQ-9 Score PHQ-9: Total score 10 08/07/25 10:07 Depression Screening Interpretation: Positive Depression Screening Follow-up: Existing condition and In treatment Thrive Assessment: Date of Thrive Assessment Date Thrive assessed 07/15/25 08/07/25 10:07 Currently or been in a relationship where the following occur: No concerns reported Coding Level of Care Code Est Pt Level 2 (75343) Complex EM visit Add On G2211 Diagnoses Encounter for generalized patient complaints Z00.8 BMI 60.0-69.9, adult Z68.44 Assessment & Plan Assessment & Plan (1) Encounter for generalized patient complaints: Code(s): Z00.8 - Encounter for other general examination Category: Medical (2) BMI 60.0-69.9, adult: Code(s): Z68.44 - Body mass index [BMI] 60.0-69.9, adult Category: Medical Plan .
--- OUTSIDE RECORDS SUMMARY | 2025-08-07 10:42 | XMS_ITS | Encounter Summary ---
Author Organization [employer] Address [address] [place] [address] [address] [place] [address] Care Team Providers Care Forge Utility Worker Name Role Phone Francheska Tucker MADELEINE Primary Care Provider [phone] Lei Thacker Unavailable Unavailable Sharmila Azar DO Primary Care Provider [phone] Inactive/Transferred Primary Care Provider Unava ilable Reason for Visit * Reason Onset Date Comments Med Refill 05/21/2024 Encounter Details Date Type Department Care Team (Late st Contact Info) Description 05/21/2024 Refill Pat [facility] MEDICAL [address] [place] [address] Shilpa Miller, MARIA C [address] [place] [address] Type 2 diabetes mellitus with diabetic polyneuropathy, with long-term current use of insulin ([facility]) Social History Tobacco Use Types [...] VM I am going to send a [employer] message. documented in this encounter Plan of Treatment Not on file documented as of this encounter Visit Diagnoses Diagnosis Type 2 diabetes mellitus with diabetic polyneuropathy, with long-term current use of insulin (HCC) documented in this encounter Additional Health Concerns Assessment Noted Time PHQ-9 Depression Total Score: 20 024 7:38 AM EDT documented as of this encounter Care Teams Forge Utility Worker Relationship Specialty Start Date End Date Francheska Tucker FNP [address] [facility] [place] [address] PCP - General Family Medicine 10/25/23 11/01/24 Sharmila Azar DO [address] [facility] [place] [address] PCP - General Family Medicine 11/02/24 06/17/25 Inactive/Transferred PCP - General 06/18/25 06/18/25 Lei Thacker Health Navigator 09/17/24 documented as of this encounter
--- OUTSIDE RECORDS SUMMARY | 2025-08-07 10:42 | XMS_ITS | Encounter Summary ---
Author Organization [employer] Address [address] [place] [address] [address] [place] [address] Care Team Providers Care Mysql Database Developer Name Role Phone Francheska Tucker MADELEINE Primary Care Provider [phone] Lei Thacker Unavailable Unavailable Sharmila Azar DO Primary Care Provider [phone] Inactive/Transferred Primary Care Provider Unava ilable Reason for Visit * Reason Comments Med Change Request Encounter Details Date Type Department Care Team (Late st Contact Info) Description 05/12/[address] [facility] MEDICAL [address] [place] [address] Shilpa Miller CNP [address] [place] [address] Psychophysiological insomnia Social History Tobacco Use Types [...] Notes * Telephone Encounter - Branden Mcclure, CONCRETE INSPECTOR - 05/12/2024 9:56 AM EDT Pt tried [...] documented as of this encounter Care Teams Mysql Database Developer Relationship Specialty Start Date End Date Francheska Tucker FNP [address] [place] [address] PCP - General Family Medicine 10/25/23 11/01/24 Sharmila Azar DO [address] [place] [address] PCP - General Family Medicine 11/02/24 06/17/25 Inactive/Transferred PCP - General 06/18/25 06/18/25 Lei Thacker Health Navigator 09/17/24 documented as of this encounter
--- OUTSIDE RECORDS SUMMARY | 2025-08-07 10:42 | XMS_ITS | Encounter Summary ---
Author Organization [employer] Address [address] [place] [address] [address] [place] [address] Care Team Providers Care Logistics And Planning Manager Name Role Phone Lei Thacker Unavailable Unavailable Sharmila Azar DO Primary Care Provider [phone] Inactive/Transferred Primary Care Provider Unava ilable Reason for Visit * Reason Onset Date Comments Med Refill 02/18/2025 Encounter Details Date Type Department Care Team (Late st Contact Info) Description 02/18/2025 Refill [place] [facility] MED[facility] [address] [place] [address] Sharmila Azar DO [address] [place] [address] Anxiety; PTSD (post-traumatic stress disorder) Social History [...] documented as of this encounter Care Teams Logistics And Planning Manager Relationship Specialty Start Date End Date Sharmila Azar DO [address] [place] [address] PCP - General Family Medicine 11/02/24 06/17/25 Inactive/Transferred PCP - General 06/18/25 06/18/25 Lei Thacker Health Navigator 09/17/24 documented as of this encounter
--- OUTSIDE RECORDS SUMMARY | 2025-08-07 10:42 | XMS_ITS | Encounter Summary ---
Author Organization [employer] Address [address] [place] [address] [address] [place] [address] Care Team Providers Care File System Installer Name Role Phone Lei Thacker Unavailable Unavailable Sharmila Azar DO Primary Care Provider [phone] Inactive/Transferred Primary Care Provider Unava ilable Reason for Visit * Reason Comments Med Change Request Encounter Details Date Type Department Care Team (Late st Contact Info) Description 01/26/2025 Oneyda Stewart [facility] MED[facility] [address] [place] [address] Sharmila Azar DO [address] [place] [address] Type 2 diabetes mellitus with diabetic polyneuropathy, with long-term current use of insulin ([facility]) Social History Tobacco Use Types [...] documented as of this encounter Care Teams File System Installer Relationship Specialty Start Date End Date Sharmila Azar DO [address] [place] [address] PCP - General Family Medicine 11/02/24 06/17/25 Inactive/Transferred PCP - General 06/18/25 06/18/25 Lei Thacker Health Navigator 09/17/24 documented as of this encounter
--- OUTSIDE RECORDS SUMMARY | 2025-08-07 10:42 | XMS_ITS | Encounter Summary ---
Author Organization [employer] Address [address] [place] [address] [address] [place] [address] Care Team Providers Care Party Plan Dealer Name Role Phone Francheska Tucker MADELEINE Primary Care Provider [phone] Lei Thacker Unavailable Unavailable Sharmila Azar DO Primary Care Provider Inactive/Transferred Primary Care Provider Unava ilable Reason for Visit * Reason Comments Med Change Request Encounter Details Date Type Department Care Team (Late st Contact Info) Description 01/14/2024 Oneyda Stewart [facility] MEDICAL [address] [place] [address] Shilpa Miller, DESKTOP OPERATOR [address] [place] [address] Type 2 diabetes mellitus with diabetic polyneuropathy, with long-term current use of insulin ([facility]) Social History Tobacco Use [...] was filled out yesterday and faxed to [employer] [employer] there was another TE on this. documented in this encounter Plan of Treatment Not on file documented as of this encounter Visit Diagnoses Diagnosis Type 2 diabetes mellitus with diabetic polyneuropathy, with long-term current use of insulin (HCC) documented in this encounter Care Teams Party Plan Dealer Relationship Specialty Start Date End Date Francheska Tucker FNP [address] [place] [address] PCP - General Family Medicine 10/25/23 11/01/24 Sharmila Azar DO [address] [place] [address] PCP - General Family Medicine 11/02/24 06/17/25 Inactive/Transferred PCP - General 06/18/25 06/18/25 Lei Thacker Health Navigator 09/17/24 documented as of this encounter
--- OUTSIDE RECORDS SUMMARY | 2025-08-07 10:42 | XMS_ITS | Encounter Summary ---
Author Organization [employer] Address [address] [place] [address] 7t [place] [address] Care Team Providers Care Electronic System Engineer Name Role Phone Lei Thacker Unavailable Unavailable Sharmila Azar DO Primary Care Provider [phone] Inactive/Transferred Primary Care Provider Unava ilable Reason for Visit * Reason Onset Date Comments Med Refill 01/31/2025 Encounter Details Date Type Department Care Team (Late st Contact Info) Description 01/31/2025 Refill Pat [facility] MEDICAL [address] [place] [address] Francheska Tucker FNP [address] [place] [address] Essential (primary) hypertension Social History Tobacco Use [...] as of this encounter Care Teams Electronic System Engineer Relationship Specialty Start Date End Date Sharmila Azar DO [address] [place] [address] PCP - General Family Medicine 11/02/24 06/17/25 Inactive/Transferred PCP - General 06/18/25 06/18/25 Lei Thacker Health Navigator 09/17/24 documented as of this encounter
--- OUTSIDE RECORDS SUMMARY | 2025-08-07 10:42 | XMS_ITS | Encounter Summary ---
Author Organization [employer] Address [address] [place] [address] 7 [place] [address] Care Team Providers Care Program Coordinator For Residence Life Name Role Phone Lei Thacker Unavailable Unavailable Sharmila Azar DO Primary Care Provider [phone] Inactive/Transferred Primary Care Provider Unava ilable Reason for Visit * Reason Comments Med Refill Encounter Details Date Type Department Care Team (Late st Contact Info) Description 03/02/2025 Refill Pat [facility] MED[facility] [address] [place] [address] Sharmila Azar DO [address] [place] [address] Anxiety; PTSD (post-traumatic stress disorder) Social History [...] documented as of this encounter Care Teams Program Coordinator For Residence Life Relationship Specialty Start Date End Date Sharmila Azar DO [address] [place] [address] PCP - General Family Medicine 11/02/24 06/17/25 Inactive/Transferred PCP - General 06/18/25 06/18/25 Lei Thacker Health Navigator 09/17/24 documented as of this encounter
--- OUTSIDE RECORDS SUMMARY | 2025-08-07 10:42 | XMS_ITS | Encounter Summary ---
Author Organization [employer] Address 75 [facility] 7t [place] [address] Care Team Providers Care Certified Caregiver Name Role Phone Francheska Tucker Primary Care Provider [phone] Lei Thacker Unavailable Unavailable Sharmila Azar DO Primary Care Provider [phone] Inactive/Transferred Primary Care Provider Unava ilable Reason for Visit * Reason Comments Med Change Request Encounter Details Date Type Department Care Team (Late st Contact Info) Description 2024 Oneyda Stewart [facility] MEDICAL [address] [place] [address] Francheska Tucker FNP [address] [place] [address] Type 2 diabetes mellitus with diabetic polyneuropathy, with long-term current use of insulin ([facility]) Social History Tobacco Use [...] documented as of this encounter Care Teams Certified Caregiver Relationship Specialty Start Date End Date Francheska Tucker FNP 73 [place] [address] PCP - General Family Medicine 10/25/23 11/01/24 Sharmila Azar DO [address] [place] [address] PCP - General Family Medicine 11/02/24 06/17/25 Inactive/Transferred PCP - General 06/18/25 06/18/25 Lei Thacker Health Navigator 09/17/24 documented as of this encounter
--- OUTSIDE RECORDS SUMMARY | 2025-08-07 10:42 | XMS_ITS | Encounter Summary ---
Author Organization [employer] Address [address] [facility] 7t [place] [address] Care Team Providers Care Curriculum Assistant Name Role Phone Francheska Tucker MADELEINE Primary Care Provider [phone] Lei Thacker Unavailable Unavailable Sharmila Azar DO Primary Care Provider [phone] Inactive/Transferred Primary Care Provider Unava ilable Encounter Details Date Type Department Care Team (Late st Contact Info) Description 12/19/2023 Orders Only [facility] MEDICAL [address] [place] [address] Provider, MD Sharad Social History Tobacco Use [...] on filedocumented in this encounter Care Teams Curriculum Assistant Relationship Specialty Start Date End Date Francheska Tucker FNP 73 [facility] [place] [address] PCP - General Family Medicine 10/25/23 11/01/24 Sharmila Azar DO [address] [place] [address] PCP - General Family Medicine 11/02/24 06/17/25 Inactive/Transferred PCP - General 06/18/25 06/18/25 Lei Thacker Health Navigator 09/17/24 documented as of this encounter
--- OUTSIDE RECORDS SUMMARY | 2025-08-07 10:42 | XMS_ITS | Encounter Summary ---
Author Organization [employer] Address 75 [facility] 7t [place] [address] Care Team Providers Care Cellophane Bag Machine Operator Name Role Phone Lei Thacker Unavailable Unavailable Sharmila Azar DO Primary Care Provider [phone] Inactive/Transferred Primary Care Provider Unava ilable Reason for Visit * Reason Onset Date Comments Med Refill 02/09/2025 Encounter Details Date Type Department Care Team (Late st Contact Info) Description 02/09/2025 Refill Pat [facility] [address] [place] [address] Francheska Tucker FNP [address] [place] [address] Type 2 diabetes mellitus with diabetic polyneuropathy [...] documented as of this encounter Care Teams Cellophane Bag Machine Operator Relationship Specialty Start Date End Date Sharmila Azar DO [address] [place] [address] PCP - General Family Medicine 11/02/24 06/17/25 Inactive/Transferred PCP - General 06/18/25 06/18/25 Lei Thacker Health Navigator 09/17/24 documented as of this encounter
--- OUTSIDE RECORDS SUMMARY | 2025-08-07 10:42 | XMS_ITS | Encounter Summary ---
Author Organization [employer] Address [address] [facility] 7t [place] [address] Care Team Providers Care Director Of Entertainment Name Role Phone Francheska Tucker Primary Care Provider [phone] Lei Thacker Unavailable Unavailable Sharmila Azar DO Primary Care Provider Inactive/Transferred Primary Care Provider Unava ilable Reason for Visit * Reason Comments Med Change Request Encounter Details Date Type Department Care Team (Late st Contact Info) Description 05/26/2024 Oneyda Stewart [facility] MEDICAL [address] [place] [address] Francheska Tucker FNP [address] [place] [address] Type 2 diabetes mellitus with diabetic polyneuropathy, with long-term current use of insulin ([facility]) Social History Tobacco Use Types Packs/Day [...] of this encounter Care Teams Director Of Entertainment Relationship Specialty Start Date End Date Francheska Tucker FNP 73 [place] [address] PCP - General Family Medicine 10/25/23 11/01/24 Sharmila Azar DO [address] [place] [address] PCP - General Family Medicine 11/02/24 06/17/25 Inactive/Transferred PCP - General 06/18/25 06/18/25 Lei Thacker Health Navigator 09/17/24 documented as of this encounter
--- OUTSIDE RECORDS SUMMARY | 2025-08-07 10:42 | XMS_ITS | Encounter Summary ---
Author Organization [employer] Address [address] [place] [address] 7t [place] [address] Care Team Providers Care Communications Tower Climber Name Role Phone Francheska Tucker MADELEINE Primary Care Provider [phone] Lei Thacker Unavailable Unavailable Sharmila Azar DO Primary Care Provider Inactive/Transferred Primary Care Provider Unava ilable Reason for Visit * Reason Comments Med Change Request Encounter Details Date Type Department Care Team (Late st Contact Info) Description 05/12/2024 Oneyda Stewart [facility] MEDICAL [address] [place] [address] Shilpa Miller CNP [address] [place] [address] Psychophysiological insomnia Social History Tobacco Use Types [...] documented as of this encounter Care Teams Communications Tower Climber Relationship Specialty Start Date End Date Francheska Tucker FNP [address] [place] [address] PCP - General Family Medicine 10/25/23 11/01/24 Sharmila Azar DO [address] [place] [address] PCP - General Family Medicine 11/02/24 06/17/25 Inactive/Transferred PCP - General 06/18/25 06/18/25 Lei Thacker Health Navigator 09/17/24 documented as of this encounter
--- OUTSIDE RECORDS SUMMARY | 2025-08-07 10:42 | XMS_ITS | Encounter Summary ---
Author Organization [employer] Address [address] [place] [address] 7 [place] [address] Care Team Providers Care Commissioner Conservation Of Resources Name Role Phone Shilpa Miller CNP Primary Care Provider [phone] Francheska Tucker Primary Care Provider [phone] Lei Thacker Unavailable Unavailable Sharmila Azar DO Primary Care Provider [phone] Inactive/Transferred Primary Care Provider Unava ilable Encounter Details Date Type Department Care Team (Late st Contact Info) Description 01/31/2023 Abstract Pat [facility] MEDICAL [address] [place] [address] Shilpa Miller CNP [address] [place] [address] Social History Tobacco Use Types Packs/Day Years [...] on filedocumented in this encounter Care Teams Commissioner Conservation Of Resources Relationship Specialty Start Date End Date Shilpa Miller CNP [address] [place] [address] PCP - General Family Medicine 10/16/22 10/24/23 Francheska Tucker FNP [address] [place] [address] PCP - General Family Medicine 10/25/23 11/01/24 Sharmila Azar DO [address] [place] [address] PCP - General Family Medicine 11/02/24 06/17/25 Inactive/Transferred PCP - General 06/18/25 06/18/25 Lei Thacker Health Navigator 09/17/24 documented as of this encounter
--- OUTSIDE RECORDS SUMMARY | 2025-08-07 10:42 | XMS_ITS | Encounter Summary ---
Author Organization [employer] Address [address] [place] [address] 7t [place] [address] Care Team Providers Care Ski Edge Painter Name Role Phone Lei Thakcer Unavailable Unavailable Sharmila Azar DO Primary Care Provider [phone] Inactive/Transferred Primary Care Provider Unava ilable Reason for Visit * Reason Comments Med Change Request Encounter Details Date Type Department Care Team (Late st Contact Info) Description 12/25/2024 Oneyda Stewart [facility] MEDICAL [address] [place] [address] Sharmila Azar DO [address] [place] [address] Mild intermittent asthma without complication Social History [...] documented as of this encounter Care Teams Ski Edge Painter Relationship Specialty Start Date End Date Sharmila Azar DO [address] [place] [address] PCP - General Family Medicine 11/02/24 06/17/25 Inactive/Transferred PCP - General 06/18/25 06/18/25 Lei Thacker Health Navigator 09/17/24 documented as of this encounter
--- OUTSIDE RECORDS SUMMARY | 2025-08-07 10:42 | XMS_ITS | Encounter Summary ---
Author Organization [employer] Address [address] [place] [address] [address] [place] [address] Care Team Providers Care Supply Chain Engineer Name Role Phone Shilpa Miller CNP Primary Care Provider [phone] Francheska Tucker Primary Care Provider [phone] Lei Thacker Unavailable Unavailable Sharmila Azar DO Primary Care Provider [phone] Inactive/Transferred Primary Care Provider Unava ilable Reason for Visit * Reason Comments Med Refill Encounter Details Date Type Department Care Team (Late st Contact Info) Description 07/25/2023 Refill Pat [facility] MED[facility] [address] [place] [address] Shilpa Miller CNP [address] [place] [address] Hypothyroidism, unspecified Social History Tobacco Use Types [...] unspecified documented in this encounter Care Teams Supply Chain Engineer Relationship Specialty Start Date End Date Shilpa Miller CNP [address] [place] [address] PCP - General Family Medicine 10/16/22 10/24/23 Francheska Tucker FNP [address] [place] [address] PCP - General Family Medicine 10/25/23 11/01/24 Sharmila Azar DO 73 [place] [address] PCP - General Family Medicine 11/02/24 06/17/25 Inactive/Transferred PCP - General 06/18/25 06/18/25 Lei Thacker Health Navigator 09/17/24 documented as of this encounter
--- OUTSIDE RECORDS SUMMARY | 2025-08-07 10:42 | XMS_ITS | Encounter Summary ---
Author Organization [employer] Address [address] [place] [address] 7 [place] [address] Care Team Providers Care Customer Account Executive Name Role Phone Lei Thacker Unavailable Unavailable Sharmila Azar DO Primary Care Provider [phone] Inactive/Transferred Primary Care Provider Unava ilable Reason for Visit * Reason Comments Med Change Request Encounter Details Date Type Department Care Team (Late st Contact Info) Description 03/06/2025 Oneyda Stewart [facility] MEDICAL [address] [place] [address] Sharmila Azar DO [address] [place] [address] Type 2 diabetes mellitus with diabetic polyneuropathy, with long-term current use of insulin ([facility]) Social History Tobacco Use Types [...] documented as of this encounter Care Teams Customer Account Executive Relationship Specialty Start Date End Date Sharmila Azar DO [address] [place] [address] PCP - General Family Medicine 11/02/24 06/17/25 Inactive/Transferred PCP - General 06/18/25 06/18/25 Lei Thacker Health Navigator 09/17/24 documented as of this encounter
--- OUTSIDE RECORDS SUMMARY | 2025-08-07 10:42 | XMS_ITS | Encounter Summary ---
Author Organization [employer] Address [address] [place] [address] 7t [place] [address] Care Team Providers Care Teacher Dancing Name Role Phone Francheska Tucker MADELEINE Primary Care Provider [phone] Lei Thacker Unavailable Unavailable Sharmila Azar DO Primary Care Provider [phone] Inactive/Transferred Primary Care Provider Unava ilable Encounter Details Date Type Department Care Team (Late st Contact Info) Description 06/25/[address] [facility] MEDICAL [address] [place] [address] Provider, MD Sharad Social History Tobacco Use [...] the past 12 months, has t he [employer], gas, oil or water plista threatened to shut off services in your [...] documented as of this encounter Care Teams Teacher Dancing Relationship Specialty Start Date End Date Francheska Tucker FNP [address] [place] [address] PCP - General Family Medicine 10/25/23 11/01/24 Sharmila Azar DO [address] [place] [address] PCP - General Family Medicine 11/02/24 06/17/25 Inactive/Transferred PCP - General 06/18/25 06/18/25 Lei Thacker Health Navigator 09/17/24 documented as of this encounter
--- OUTSIDE RECORDS SUMMARY | 2025-08-07 10:43 | XMS_ITS | Encounter Summary ---
Author Organization [employer] Address [address] [place] [address] 7 [place] [address] Care Team Providers Care Chief Clerk Shelter Name Role Phone Lei Thacker Unavailable Unavailable Sharmila Azar DO Primary Care Provider [phone] Inactive/Transferred Primary Care Provider Unava ilable Reason for Visit * Reason Onset Date Comments Med Refill 12/11/2024 Encounter Details Date Type Department Care Team (Late st Contact Info) Description 12/11/2024 Refill [place] [facility] MEDICAL [address] [place] [address] Sharmila Azar DO [address] [place] [address] Anxiety; PTSD (post-traumatic stress disorder) Social History [...] documented as of this encounter Care Teams Chief Clerk Shelter Relationship Specialty Start Date End Date Sharmila Azar DO [address] [place] [address] PCP - General Family Medicine 11/02/24 06/17/25 Inactive/Transferred PCP - General 06/18/25 06/18/25 Lei Thacker Health Navigator 09/17/24 documented as of this encounter
--- OUTSIDE RECORDS SUMMARY | 2025-08-07 10:43 | XMS_ITS | Encounter Summary ---
Author Organization [employer] Address [address] [place] [address] 7 [place] [address] Care Team Providers Care Makeup Sales Consultant Name Role Phone Shilpa Miller CNP Primary Care Provider [phone] Francheska Tucker Primary Care Provider [phone] Lei Thacker Unavailable Unavailable Sharmila Azar DO Primary Care Provider [phone] Inactive/Transferred Primary Care Provider Unava ilable Encounter Details Date Type Department Care Team (Late st Contact Info) Description 11/30/2022 Abstract [place] [facility] MED[facility] [address] [place] [address] Shilpa Miller CNP [address] [place] [address] Social History Tobacco Use Types Packs/Day Years [...] on filedocumented in this encounter Care Teams Makeup Sales Consultant Relationship Specialty Start Date End Date Shilpa Miller CNP [address] [place] [address] PCP - General Family Medicine 10/16/22 10/24/23 Francheska Tucker FNP [address] [place] [address] PCP - General Family Medicine 10/25/23 11/01/24 Sharmila Azar DO [address] [place] [address] PCP - General Family Medicine 11/02/24 06/17/25 Inactive/Transferred PCP - General 06/18/25 06/18/25 Lei Thacker Health Navigator 09/17/24 documented as of this encounter
--- OUTSIDE RECORDS SUMMARY | 2025-08-07 10:43 | XMS_ITS | Clinical Summary ---
Author Organization [employer] Address [address] [place] [address] 7t [place] [address] Care Team Providers Care Playground Supervisor Name Role Phone Lei Thacker Unavailable Unavailable Allergies Active Allergy Reactions Criticality Noted Date Comments Hardy Oil Hives,Itching,Rash,S hortness of breath,Swelling,Whee zing High 11/05/1980 Other Reaction(s): Anaphylaxis Amoxicillin 10/11/2022 Other reaction(s): Unknown Aspirin 10/11/2022 Other reaction(s): sensitivity Azithromycin Rash Low 10/11/2022 Black Howard Flavoring Agent (Non-Screening) Hives,Itching,Shortn ess of breath,Swelling,Whee [...] polyneuropathy, with long-term current use of insulin ([facility]) Use as directed to test blood sugars 3 times a day 100 strip 12 12/09/19 25 Active levalbuterol (Xopenex) 45 MCG/ACT inhalerIndications :Mild intermittent asthma without complication INHALE 2 PUFFS EVERY 4 HOURS IF NEEDED FOR WHEEZING. 15 g 3 12/25/19 25 Active nystatin (Mycostatin) 513226 UNIT/GM powderIndications: Soo infection of flexural skin Apply topically 2 times daily. 60 g 1 01/01/20 25 026 Active losartan (Cozaar) 100 MG tabletIndications: Essential (primary) hypertension TAKE 1 TABLET (100 MG) BY MOUTH ONCE PER DAY. 90 tablet 3 02/03/20 25 Active Basaglar KwikPen 100 UNIT/ML penIndications:Typ e 2 diabetes mellitus with diabetic polyneuropathy, with long-term current use of insulin ([facility]) Inject 82 Units under the skin at [...] 03/09/20 25 Active Lancets (OneTouch Delica Plus Cdkcgv30T) miscIndications:Ty pe 2 diabetes mellitus with diabetic polyneuropathy, with long-term current use of insulin ([facility]) CHECK GLUCOSE 3 TIMES A DAY 100 [...] depression, PTSD. Engaged with Dom Carter at [facility] in [place] for medication. Sees Forrest at [facility] for therapy weekly on phone. Feeling [...] ARB and STATIN. EYE: Dr. Segura in [place] DENTIST: Has false teeth. FBS 60-100. Will [...] pain. Will refer to weight management. Completed CRATE TI[employer] paperwork for Ismael. Assessment & Plan (05/25/2023 [...] Department Care Team Description 07/22/2025 Results Follow-Up [address] [address] Sharmila Azar, DO TSH with Reflex to Free T4 [[id number]] 07/21/2025 Results Follow-Up [address] [address] Sharmila Azar DO CBC auto differential, Comprehensive Metabolic Panel [[id number]] 07/18/2025 Refill [facility] [address] [place] [address] Francheska Tucker, REED OR WIND INSTRUMENT REPAIRER 07/17/2025 Orders Only [address] [address] Sharmila Azar DO Arthralgia of both knees (Primary Dx); Lymphedema; Abnormal CBC; ESR raised 07/17/2025 Results Follow-Up [address] [address] Sharmila Azar DO Cortisol, Total, Magnesium 724497, Sed Rate by Modified Westergren, Additional followed-up results: 4 07/10/[address] [address] PcpPat Unassigned [employer] (Phone Number # / ) 07/08/[address] [address] Nancy Bridges LPN 07/02/[address] [address] PcpPat Unassnilay holder 06/22/2025 1:45 PM EDT Office Visit [address] [address] Sharmila Azar DO Primary osteoarthritis of both knees (Primary Dx); Nail dystrophy; Long toenail; Type 2 diabetes mellitus with diabetic polyneuropathy, with long-term current use of insulin (CMS/HCC); Muscle weakness of lower extremity; Diabetic polyneuropathy associated with type 2 diabetes mellitus (CMS/HCC); Acquired lymphedema; Transportation insecurity 06/20/2025 Travel 06/16/[address] [address] [place], PUBLIC INTERVIEWER Pt-1 ride to [place] 06/14/2025 Travel 05/29/2025 Refill [facility] [address] [place] [address] Sharmila Azar DO Type 2 diabetes mellitus with diabetic polyneuropathy, with long-term current use of insulin ([facility]) 05/27/2025 Telephone [facility] [address] [place] [address] Sharmila Azar, 05/23/[address] [address] Sharmila Azar DO PT-1 05/19/2025 Telephone [facility] [address] [place] [address] Sharmila Azar, PT-1 05/17/2025 Refill [facility] [address] [place] [address] Sharmila Azar DO Type 2 diabetes mellitus with diabetic polyneuropathy ([facility]) from Last 3 Months Immunizations Immunization Administration [...] Mother vladimir hawk Hypertension Mother vladimir hawk NH Mother vladimir hawk after NH. Stroke Mother vladimir hawk Thyroid disease Mother [...] the past 12 months, has t he [employer], gas, oil or water [employer] threatened to shut off services in your [...] of 2) 2018 Lipid Panel 12/11/2024 12/11/2023, 12/2021, 06/06/2022, Additional history exists Influenza Vaccine [...] 06/22/2026 06/22/2025 Depression Screening 06/22/2026 06/22/2025, 06/22/20 25 Mammogram 04/25/2027 04/25/2025, 04/06, 12/25/2021, Additional history [...] polyneuropathy, with long-term current use of insulin (CMS/[facility]) CORTISOL, TOTAL Routine 07/16/2025 9:55 AM EDT Type 2 diabetes mellitus with diabetic polyneuropathy, with long-term current use of insulin (CMS/[facility]) POCT GLYCOSYLATED HEMOGLOBIN (HGB A1C) Routine 06/22/2025 2:22 PM EDT Type 2 diabetes mellitus with diabetic polyneuropathy, with long-term current use of insulin ([facility]) BI MAMMOGRAM SCREENING TOMOSYNTHESIS BILATERAL Routine 04/25/2025 [...] Narrative Resulting Agency Comment Performed at: - [facility] [id number] Security Sme: Megan uCrry MD, Phone: [phone] [facility] LAB BLOOD ORDERABLES Final Res ult [facility] * ACTH, Plasma (07/20/2025 9:20 AM EDT) ACTH, Plasma 23.4 7.2 - 63.3 pg/mL [facility] 1 Comment:ACTH reference inter oliver for samples collected between 7 and 10 AM. Blood Venous blood specimen / Unknown 07/20/2025 9:20 AM EDT 07/20/2025 Narrative Resulting Agency Comment Performed at: - [facility] [id number] Security Sme: Megan Curry MD, Phone: [phone] [facility] LAB BLOOD ORDERABLES Final Res ult Performing Organization Address City/[facility]/ZIP Co de Phone Number [facility] 1 * (ABNORMAL) Comprehensive Metabolic Panel [[id number]] (07/20/2025 9:20 AM EDT) Glucose 143(H) 70 [...] 07/20/2025 Narrative Resulting Agency Comment Performed at: [address] [id number] Security Sme: Megan Curry MD, Phone: [phone] [facility] LAB BLOOD ORDERABLES Final Res ult Performing Organization Address City/[facility]/ZIP Co de Phone Number [facility] 1 * Rheumatoid Arthritis (RA) Profile [[id number]] (07/20/2025 9:19 AM EDT) Pathologist [facility] Rheumatoid Factor (RF) <10.0 <14.0 IU/mL [facility] 1 Anti-CCP Ab, IgG/IgA 3 0 - 19 units [facility] 1 Comment: Negative <20 Weak positive 20 - 39 Moderate positive 40 - 59 Strong positive >59 Blood Venous blood specimen / Unknown 07/20/2025 9:19 AM EDT 07/20/2025 Narrative Resulting Agency Comment Performed at: [address] [id number] Security Sme: Megan Curry MD, Phone: [phone] [facility] LAB BLOOD ORDERABLES Final Res ult Performing Organization Address [facility]/ZIP Co de Phone Number [facility] 1 [...] 07/20/2025 Narrative Resulting Agency Comment Performed at: [address] [id number] Security Sme: Megan Curry MD, Phone: [phone] Sharmila Azar DO LAB BLOOD ORDERABLES Final Res ult Performing Organization Address City/[facility]/ZIP Co de Phone Number [facility] * (ABNORMAL) TSH with Reflex to Free T4 [[id number]] (07/20/2025 9:18 AM EDT) Pathologist [facility] TSH 0.293(L) 0.450 - 4.500 uIU/mL [facility] 1 Blood Venous blood specimen / Unknown 07/20/2025 9:18 AM EDT 07/20/2025 Narrative Resulting Agency Comment Performed at: [facility] [id number] Security Sme: Megan Curry MD, Phone: [phone] Francheska SALVADOR LAB BLOOD ORDERABLES Final Resul t [facility] 1 * (ABNORMAL) Sed Rate by Heide Mcelroy (07/16/2025 9:55 AM EDT) [facility] Sed Rate By Modified Rogelioergren 84(H) 0 - 40 mm/hr [facility] 1 Blood Venous blood specimen / Unknown 07/16/2025 9:55 AM EDT 07/16/2025 Narrative Resulting Agency Comment Performed at: [facility] [address] [id number] Security Sme: Megan Curry MD, Phone: [phone] [facility] BLOOD ORDERABLES Final Res ult Performing Organization Address [facility] de Phone Number [facility] 1 * (ABNORMAL) C-reactive Protein (07/16/2025 9:55 AM EDT) Pathologist [facility] C-Reactive Protein 23(H) 0 - 10 mg/L [facility] 1 Blood Venous blood specimen / Unknown 07/16/2025 9:55 AM EDT 07/16/2025 Narrative Resulting Agency Comment Performed at: - [address] [id number] Security Sme: Megan Curry MD, Phone: [phone] [facility] BLOOD ORDERABLES Final Res ult Performing Organization Address [facility] de Phone Number [facility] 1 * Magnesium [id number] (07/16/2025 9:55 AM EDT) Pathologist [facility] Magnesium 1.9 1.6 - 2.3 mg/dL [facility] 1 Blood Venous blood specimen / Unknown 07/16/2025 9:55 AM EDT 07/16/2025 Narrative Resulting Agency Comment Performed at: - [address] [id number] Security Sme: Megan Curry MD, Phone: [phone] [facility] BLOOD ORDERABLES Final Res ult Performing Organization Address [facility] de Phone Number [facility] 1 * (ABNORMAL) Cortisol, Total (07/16/2025 9:55 AM EDT) Pathologist [facility] Cortisol, Total 0.4(L) 6.2 - 19.4 ug/dL [facility] 1 Comment: Please Note: The reference interval and flagging for this test is for an AM collection. If this is a PM collection please use: Cortisol PM: 2.3-11.9 Blood Venous blood specimen / Unknown 07/16/2025 9:55 AM EDT 07/16/2025 Narrative Resulting Agency Comment Performed at: 01 - [facility] [address] [id number] Security Sme: Megan Curry MD, Phone: [phone] Sharmila Azar LAB BLOOD ORDERABLES Final Res ult [facility] * (ABNORMAL) POCT glycosylated hemoglobin (Hgb A1c) (06/22/2025 2:22 PM EDT) Hemoglobin A1C 7.1(A) 4.0 - 5.7 % Blood Capillary blood specimen / Unknown 06/22/2025 2:22 PM EDT Sharmila Azar POINT OF CARE TEST ENTER/EDIT ORDERABLES Final Result * BI Mammogram Screening Tomosynthesis Bilateral (04/25/2025 1:53 PM EDT) Anatomical Region Laterality Modality Breast Bilateral Mammography 04/25/2025 1:53 PM EDT Narrative 04/27/2025 4:28 PM EDT PROCEDURE: MM Digital Mammo Screening INDICATION: Screening for breast cancer. No known palpable abnormalities. COMPARISON: [facility] dating back to 01/14/2013. TECHNIQUE: Full-field [...] (Negative) Lay letter mailed to patient WSN: [id number] Ordering Physician: Sharmila Azar Dictated By: Kayleigh Hall MD, I Dictated Date/Time: 04/27/25 4:25 pm Reviewed By: Kayleigh Hall MD, I Signed By: Kayleigh Hall MD, I Signed Date/Time: 04/27/25 4:25 pm Transcribed By: GITA Senior Strategy Manager Date/Time: 04/27/25 4:22 pm Birads: Procedure Note Donotuseinterpreter, Image - 04/27/2025 PROCEDURE: MM Digital Mammo Screening INDICATION: Screening for breast cancer. No known palpableabnormalities. COMPARISON: [facility] dating back to 01/14/2013. TECHNIQUE: Full-field [...] (Negative) Lay letter mailed to patient WSN: [id number] Ordering Physician: Sharmila Azar Dictated By: Kayleigh Hall MD, I Dictated Date/Time: 04/27/25 4:25 pm Reviewed By: Kayleigh Hall MD, I Signed By: Kayleigh Hall MD, I Signed Date/Time: 04/27/25 4:25 pm Transcribed By: GITA Senior Strategy Manager Date/Time: 04/27/25 4:22 pm Birads: Sharmila Azar [...] 01/04/2025 6:35 AM EST Performed at: - [address] [id number] Security Sme: Megan Curry MD, Phone: [phone] Sharmila Azar DO LAB URINE ORDERABLES Final Res ult Performing Organization Address City/[facility]/ZIP Co de Phone Number [facility] 1 * Hm Diabetes Eye Exam (05/28/2024 5:27 PM EDT) Historical Provider HEALTH MAINTENANCE Final Result * Lipid panel (12/11/2023 12:51 PM EST) Cholesterol, Total 142 (<200) MG/DL [facility] Triglyceride (mg/dL) in Serum/Plasma 89 (<150) MG/DL [facility] HDL Cholesterol 67 (>39) MG/DL [facility] LDL Cholesterol, Calculated 57 (0-130) MG/DL [facility] Non HDL Chol. (LDL+VLDL) 75 (<160) MG/DL [facility] Comment: Testing performed or reported by [facility], a Service of [facility], [address] [place] [address] Rojas Garza MD, Pharmaceutical Sales [facility]# [id number] Blood Venous blood specimen / Unknown 12/11/2023 12:51 PM EST 12/11/2023 12:52 PM EST Francheska SALVADOR LAB BLOOD ORDERABLES Final Resul t Performing Organization Address [facility] Co de Phone Number [address] [address] * Pap Smear (07/17/2023 12:00 AM EDT) Swab Historical Provider LAB CYTOLOGY ORDERABLES F inal Result Performing Organization Address [facility] Co de Phone Number [address] [address] * Hm Colonoscopy (12/30/2020) Colonoscopy repeat in 10 yeasr Historical Provider MD HEALTH MAINTENANCE Final Result * -Hepatitis C Antibody Test (12/14/2020 7:58 AM EST) ANTI-HEPATITIS C NEGATIVE (NEG) [facility] Comment: Reference range: Negative This test was performed on the [employer] Super[employer] immunoassay system. 12/14/2020 7:58 AM EST us Shilpa Tetox BUSINESS SERVICES INTERN HISTORICAL/NON ORDERABLE LABS Final Result Performing Organization Address [facility] de Phone Number [facility] [address] * -HIV AB-AG 4TH GENERATION (12/14/2020 7:58 AM EST) RESULT 4TH GEN HIV AB-AG NEGATIVE (NEG) [facility] Comment: Negative for antibodies to HIV 1 and HIV 2 and P24 antigen. Reference range: Negative Additional note: Written patient authorization is required for each separate release of this test result. This test was performed on the [employer] Super[employer] immunoassay system. 12/14/2020 7:58 AM EST Shilpa Miller BUSINESS SERVICES INTERN LAB BLOOD ORDERABLES Final Re sult Performing Organization Address [facility] Phone Number [facility] Critical access hospital [address] from Last 3 Months or Most Recently Relevant to Health Maintenance Insurance [place] [address] [place] [id number] [facility] Advance Directives Documents on File Type Date Recorded Patient Coil Strapper Expl anation HealthCare Proxy 10/24/2023 12:48 PM HCP Care Teams Playground Supervisor Relationship Specialty Start Date End Date Lei Thacker Health Navigator 09/17/24
--- OUTSIDE RECORDS SUMMARY | 2025-08-07 10:43 | XMS_ITS | Encounter Summary ---
Author Organization [employer] Address [address] [place] [address] 7t [place] [address] Care Team Providers Care Carcass Trimmer Name Role Phone Lei Thacker Unavailable Unavailable Encounter Details Date Type Department Care Team (Latest Contact Info) Description 07/21/2025 Results Follow-Up [facility] MEDICAL [address] [place] [address] Sharmila Azar DO [address] [place] [address] CBC auto differential, Comprehensive Metabolic Panel [[id number]] Social History Tobacco Use Types Packs/Day Years [...] r Schedule B Type Natriuretic Peptide (BNP) 466670 Lab Routine Low serum albumin Lymphedema Mild [...] documented as of this encounter Care Teams Carcass Trimmer Relationship Specialty Start Date End Date Lei Thacker Health Navigator 09/17/24 documented as of this encounter
--- OUTSIDE RECORDS SUMMARY | 2025-08-07 10:43 | XMS_ITS | Encounter Summary ---
Author Organization [employer] Address [address] [place] [address] 7 [place] [address] Care Team Providers Care Grease Buffer Name Role Phone Lei Thacker Unavailable Unavailable Sharmila Azar DO Primary Care Provider [phone] Inactive/Transferred Primary Care Provider Unava ilable Reason for Visit * Reason Onset Date Comments Med Refill 12/24/2024 Encounter Details Date Type Department Care Team (Late st Contact Info) Description 12/24/2024 Refill [place] [facility] [address] [place] [address] Sharmila Azar DO [address] [place] [address] Anxiety; PTSD (post-traumatic stress disorder) Social History [...] documented as of this encounter Care Teams Grease Buffer Relationship Specialty Start Date End Date Sharmila Azar DO [address] [place] [address] PCP - General Family Medicine 11/02/24 06/17/25 Inactive/Transferred PCP - General 06/18/25 06/18/25 Lei Thacker Health Navigator 09/17/24 documented as of this encounter
--- OUTSIDE RECORDS SUMMARY | 2025-08-07 10:43 | XMS_ITS | Encounter Summary ---
Author Organization [employer] Address [address] [place] [address] 7t [place] [address] Care Team Providers Care Director Of Physiotherapy Services Name Role Phone Francheska Tucker MADELEINE Primary Care Provider [phone] Lei Thacker Unavailable Unavailable Sharmila Azar DO Primary Care Provider [phone] Inactive/Transferred Primary Care Provider Unava ilable Reason for Visit * Reason Comments Med Refill Encounter Details Date Type Department Care Team (Late st Contact Info) Description 03/21/2024 Refill [facility] [address] [place] [address] Shilpa Miller, WOODS RIDER [address] [place] [address] Type 2 diabetes mellitus with diabetic polyneuropathy, with long-term current use of insulin ([facility]) Social History Tobacco Use Types Packs/Day [...] sit still 3 03/24/2024 7:40 AM Shilpa DeL eon CNP Becoming easily annoyed or irritable 3 [...] of this encounter Care Teams Director Of Physiotherapy Services Relationship Specialty Start Date End Date Francheska Tucker FNP [address] [place] [address] PCP - General Family Medicine 10/25/23 11/01/24 Sharmila Azar DO [address] [place] [address] PCP - General Family Medicine 11/02/24 06/17/25 Inactive/Transferred PCP - General 06/18/25 06/18/25 Lei Thacker Health Navigator 09/17/24 documented as of this encounter
--- OUTSIDE RECORDS SUMMARY | 2025-08-07 10:43 | XMS_ITS | Encounter Summary ---
Author Organization [employer] Address [address] [place] [address] 7t [place] [address] Care Team Providers Care Senior Architectural Designer Name Role Phone Francheska Tucker MADELEINE Primary Care Provider [phone] Lei Thacker Unavailable Unavailable Sharmila Azar DO Primary Care Provider [phone] Inactive/Transferred Primary Care Provider Unava ilable Reason for Visit * Reason Comments Med Change Request Encounter Details Date Type Department Care Team (Late st Contact Info) Description 01/16/2024 Oneyda Stewart [facility] [address] [place] [address] Amira Singh FNP Social History Tobacco Use [...] RX filled out yesterday and faxed to [facility] documented in this encounter Plan of Treatment Not on file documented as of this encounter Visit Diagnoses Not on filedocumented in this encounter Care Teams Senior Architectural Designer Relationship Specialty Start Date End Date Francheska Tucker FNP [address] [place] [address] PCP - General Family Medicine 10/25/23 11/01/24 Sharmila Azar DO [address] [place] [address] PCP - General Family Medicine 11/02/24 06/17/25 Inactive/Transferred PCP - General 06/18/25 06/18/25 Lei Thacker Health Navigator 09/17/24 documented as of this encounter
--- OUTSIDE RECORDS SUMMARY | 2025-08-07 10:43 | XMS_ITS | Encounter Summary ---
Author Organization [employer] Address [address] [place] [address] 7 [place] [address] Care Team Providers Care Nurse First Assist Name Role Phone Lei Thacker Unavailable Unavailable Sharmila Azar DO Primary Care Provider [phone] Inactive/Transferred Primary Care Provider Unava ilable Reason for Visit * Reason Onset Date Comments Med Refill 11/27/2024 Encounter Details Date Type Department Care Team (Late st Contact Info) Description 11/27/2024 Refill [place] [facility] [address] [place] [address] Sharmila Azar DO [address] [place] [address] Anxiety; PTSD (post-traumatic stress disorder) Social History [...] documented as of this encounter Care Teams Nurse First Assist Relationship Specialty Start Date End Date Sharmila Azar DO [address] [place] [address] PCP - General Family Medicine 11/02/24 06/17/25 Inactive/Transferred PCP - General 06/18/25 06/18/25 Lei Thacker Health Navigator 09/17/24 documented as of this encounter
--- OUTSIDE RECORDS SUMMARY | 2025-08-07 10:43 | XMS_ITS | Encounter Summary ---
Author Organization [employer] Address [address] [place] [address] 7t [place] [address] Care Team Providers Care Geography Instructor Name Role Phone Shilpa Miller MARIA C Primary Care Provider [phone] Francheska Tucker Primary Care Provider [phone] Lei Thacker Unavailable Unavailable Sharmila Azar DO Primary Care Provider [phone] Inactive/Transferred Primary Care Provider Unava ilable Encounter Details Date Type Department Care Team (Late st Contact Info) Description 12/01/2022 Orders Only [facility] MEDICAL [address] [place] [address] Avelina [place] FNP Type 2 diabetes mellitus with diabetic polyneuropathy, with long-term current use of insulin ([facility]) (Primary Dx) Social History Tobacco Use Types [...] Primary documented in this encounter Care Teams Geography Instructor Relationship Specialty Start Date End Date Shilpa Miller CNP [address] [place] [address] PCP - General Family Medicine 10/16/22 10/24/23 Francheska Tucker FNP [address] [place] [address] PCP - General Family Medicine 10/25/23 11/01/24 Sharmila Azar DO [address] [place] [address] PCP - General Family Medicine 11/02/24 06/17/25 Inactive/Transferred PCP - General 06/18/25 06/18/25 Lei Thacker Health Navigator 09/17/24 documented as of this encounter
--- OUTSIDE RECORDS SUMMARY | 2025-08-07 10:43 | XMS_ITS | Encounter Summary ---
Author Organization [employer] Address [address] [facility] 7t [place] [address] Care Team Providers Care Injection Molding Machine Operator Name Role Phone Francheska Tucker Primary Care Provider [phone] Lei Thacker Unavailable Unavailable Sharmila Azar DO Primary Care Provider [phone] Inactive/Transferred Primary Care Provider Unava ilable Encounter Details Date Type Department Care Team (Late st Contact Info) Description 07/25/2024 Orders Only [facility] [address] [place] [address] Francheska Tucker FNP [address] [place] [address] Social History Tobacco Use Types Packs/Day Years [...] Blood Venous blood specimen / Unknown Result [facility] Francheska SALVADOR LAB BLOOD ORDERABLES Final [...] documented as of this encounter Care Teams Injection Molding Machine Operator Relationship Specialty Start Date End Date Francheska Tucker FNP 73 [place] [address] PCP - General Family Medicine 10/25/23 11/01/24 Sharmila Azar DO [address] [place] [address] PCP - General Family Medicine 11/02/24 06/17/25 Inactive/Transferred PCP - General 06/18/25 06/18/25 Lei Thacker Health Navigator 09/17/24 documented as of this encounter
--- OUTSIDE RECORDS SUMMARY | 2025-08-07 10:43 | XMS_ITS | Encounter Summary ---
Author Organization [employer] Address [address] [facility] 7t [place] [address] Care Team Providers Care Pharmaceutical Salesperson Name Role Phone Lei Thacker Unavailable Unavailable Sharmila Azar DO Primary Care Provider [phone] Inactive/Transferred Primary Care Provider Unava ilable Encounter Details Date Type Department Care Team (Late st Contact Info) Description 11/21/2024 Orders Only [facility] MEDICAL [address] [place], [place] [id number] Provider, MD Sharad Social History Tobacco Use [...] documented as of this encounter Care Teams Pharmaceutical Salesperson Relationship Specialty Start Date End Date Sharmila Azar DO [address] [place] [address] PCP - General Family Medicine 11/02/24 06/17/25 Inactive/Transferred PCP - General 06/18/25 06/18/25 Lei Thacker Health Navigator 09/17/24 documented as of this encounter
--- OUTSIDE RECORDS SUMMARY | 2025-08-07 10:43 | XMS_ITS | Data Portability ---
Author Organization [facility], [facility] Address [address] [place] [address] Care Team Providers Care Meat Stuffer Name Role Phone LIANNA PANCHAL Primary Care [...] Address Organization Details Recorded Time No complaints [id number] Active Status : 'I'; Not Available [facility] 4 09:19:03 Problem Notes None recorded. Procedures Surgical History Date Name Laterality Status Provider Name and Address Organization Details Recorded Time 5 Knee Kenalog 40 1cc Injection, Bilateral completed Robert Conde PA-C [address], [place], [address], [facility] 07/15/2025 16:42:15 5 Knee Kenalog 40 1cc Injection, Bilateral completed Robert Conde PA-C [address], [place], [address], [facility] 04/01/2025 07:56:50 5 Knee Kenalog 40 1cc Injection, Bilateral completed Robert Conde PA-C [address], [place], [address], [facility] 12/31/2024 15:24:25 4 Knee Kenalog 40 1cc Injection, Bilateral completed HERMINIO Ribeiro-C [address], [place], [address], [facility] 10/08/2024 13:43:12 4 Knee Kenalog 40 1cc Injection, Bilateral completed Robert Conde PA-C [address], [place], [address], [facility] 07/09/2024 12:37:00 4 Knee Kenalog 40 1cc Injection, Bilateral completed Robert Conde PA-C [address], [place], [address], [facility] 03/28/2024 08:24:20 Imaging Results None recorded. Procedure Notes None recorded. Medical Equipment None Reported. Allergies Allergen ID Allergen Name Allergen Category Reaction Reaction Severity Criticality Documentation Date Start Date Code Code System Note Provider Name and Address Organization Details Recorded Time 634998 Product containin g angiotens in-conver ting enzyme inhibitor (product) medicatio n Not available Not available Not available 03/27/2024 95854 009 SNOMED RODOLFO JAMES [facility] 4 14:45:09 884504 Bactrim medicatio n Not available Not available Not available 03/27/2024 36825 9 RxNorm RODOLFO QUINONEZY [facility] 4 14:45:49 103844 metformin medicatio n Not available Not available Not available 03/27/2024 6809 RxNorm RODOLFO JAMES [facility] 4 14:46:00 299919 Substance with sulfonami de structure and antibacte rial mechanism of action (substanc e) medicatio n Not available Not available Not available 03/27/2024 20008 8003 SNOMED RODOLFO QUINONEZY [facility] 4 14:46:16 113453 latex environme nt,medica tion Not available Not available Not available 03/27/2024 87489 91 RxNorm RODOLFO JAMES [place] [facility] [place] [facility] 4 14:46:24 578387 Lyrica medicatio n Not available Not available Not available 10/08/2024 61909 1 RxNorm DOMENIC GUILLEN [place] [facility] [place] [facility] 4 14:50:46 65692 Product containin g penicilli n (product) medicatio n Not available Not available Not available 01/07/20242010 97656 8001 SNOMED Aller gyRea ction : 'Skin React ion, Nause a/Vom iting /Diar gustavo' ; Not Available [facility] 4 15:13:20 57899 amoxicill in trihydrat e medicatio n Not available Not available Not available 01/07/20242010 00050 8 RxNorm Aller gyRea ction : 'Skin React ion'; Not Available [facility] 4 15:13:20 Medications Name Sig Start Date [...] Updated DateTime 12/31/2024 157.48 cm DOMENIC GUILLEN [facility] 12/31/2024 14:28:54 Date Recorded Body height Provider Name an d Address Organization Details Last Updated DateTime 04/01/2025 157.48 cm DOMENIC GUILLEN [facility] 04/01/2025 15:30:39 Date Recorded Body height Body mass index (BMI) Body weight Heart rate Provider Name and Address Organization Details Last Updated DateTime 07/09/2024 157.48 cm 69.5 kg/m2 520452.1 g 6 /min KENNY TORRES [facility] 07/09/2024 14:24:15 Date Recorded Body height Provider Name an d Address Organization Details Last Updated DateTime 07/15/2025 157.48 cm DOMENIC GUILLEN [facility] 07/15/2025 14:55:05 Date Recorded Body height Provider Name an d Address Organization Details Last Updated DateTime 10/08/2024 157.48 cm DOMENIC GUILLEN [facility] 10/08/2024 14:49:10 Social History None recorded. Functional Status None recorded. Mental Status None recorded. Family History Nothing Reported. Medical History Condition Response Allergies/Hayfever N Coronary Artery Disease N Breathing or lung disorders Y Anxiety/Depression N Emphysema N Nerve Disorders N Thyroid Problems Y COPD N Pacemaker N Anemia N Kidney/Bladder Problems N Vascular Disease N Heart Trouble N Heart Attack ([place]) N Gastrointestinal Disease N Cholesterol Y Diabetes Y Autoimmune disease N Bleeding Disorder N Inflammatory Joint disease N Orthotics N Arthritis N Seizures/Epilepsy N [...] ICD10 Code Diagnosis IMO Codes Diagnosis Note [id number] LEEANN Ribeiro [address] floor [address] [place] [address] 03/27/2024 13:58:04 04/16/2024 13:21:33 Pain of right knee joint 0832641086 13129 M25.561 Osteoarthr itis of left knee joint 5130694921 09907 M17.12 [id number] Robert Conde PA-C [place] [address] [place] [address] 07/09/2024 14:07:17 07/30/2024 11:29:18 Osteoarthritis of left knee joint 6455042007 65950 M17.12 Pain of ri ght knee joint 7702589644 78888 M25.492 [id number] Robert Conde PA-C [place] [address] [place] [address] 10/08/2024 14:46:36 11/03/2024 13:40:49 Osteoarthritis of left knee joint 9301918537 30495 M17.12 5554405 Osteoarthr itis of right knee joint 0310961103 M17.11 0117082 [id number] LEEANN Ribeiro Clinical [address] [place] [address] 12/31/2024 14:17:58 01/12/2025 12:14:57 Osteoarthritis of left knee joint 3696582215 29074 M17.12 6282039 Osteoarthr itis of right knee joint 9635636588 M17.11 6705161 [id number] LEEANN Ribeiro Clinical [address] [place] [address] 04/01/2025 15:11:57 04/08/2025 14:00:33 Osteoarthritis of left knee joint 7935520620 25508 M17.12 4763792 Osteoarthr itis of right knee joint 9004965098 M17.11 4405230 [id number] LEEANN Ribeiro Clinical [address] [place] [address] 07/15/2025 14:51:53 07/23/2025 15:49:13 Osteoarthritis of left knee joint 9881723545 64519 M17.12 6352801 Osteoarthr itis of right knee joint 4284091611 M17.11 [id number] Health Concerns Section Related Observation LastModified by Organization Detai ls LastModified Time None Recorded Concern Status LastModified by Organization Details LastModified Time None Recorded Advance Directives Directive None Recorded Payers Insurance Date Sequence Insurance Name Policy Number Policy Palafox Covered Member ID Palafox Member ID Guarantor Name 07/15/2025 1 [place]: [employer] Elyssa Silva Farhat [id number] Elyssa Silva [place] 07/15/2025 2 [place] [facility] Elyssa A [place] [id number] Elyssa Silva [place] Notes Date Note Type Note Provider Name [...] continued conservative treatment. Robert Conde PA-C [address], [place], [address], [facility] 07/14/2024 07:26:56 10/08/2024 text/html [...] continued conservative treatment. Robert Conde PA-C [address], [place], [address], [facility] 10/08/2024 15:02:32 12/31/2024 text/html [...] continued conservative treatment. Robert Conde PA-C [address] [facility] [address], [place], [address], [facility] 12/31/2024 15:24:59 04/01/2025 text/html [...] continued conservative treatment. Robert Conde PA-C [address] [facility] [address], [place], [address], [facility] 04/01/2025 16:26:04 07/15/2025 text/html [...] pneumatic compression devices. Robert Conde PA-C [address] [facility] [address], [place], [address], [facility] 07/15/2025 16:42:38 OBGyn Episode No OBEpisode recorded.
--- OUTSIDE RECORDS SUMMARY | 2025-08-07 10:43 | XMS_ITS | Encounter Summary ---
Author Organization [employer] Address [address] [place] [address] 7 [place] [address] Care Team Providers Care Regulatory Compliance Officer Name Role Phone Shilpa Miller CNP Primary Care Provider [phone] Francheska Tucker Primary Care Provider [phone] Lei Thacker Unavailable Unavailable Sharmila Azar DO Primary Care Provider [phone] Inactive/Transferred Primary Care Provider Unava ilable Encounter Details Date Type Department Care Team (Late st Contact Info) Description 11/30/2022 Abstract [place] [facility] MEDICAL [address] [place] [address] Shilpa Miller CNP [address] [place] [address] Social History Tobacco Use Types Packs/Day Years [...] on filedocumented in this encounter Care Teams Regulatory Compliance Officer Relationship Specialty Start Date End Date Shilpa Miller CNP [address] [place] [address] PCP - General Family Medicine 10/16/22 10/24/23 Francheska Tucker FNP [address] [place] [address] PCP - General Family Medicine 10/25/23 11/01/24 Sharmila Azar DO [address] [place] [address] PCP - General Family Medicine 11/02/24 06/17/25 Inactive/Transferred PCP - General 06/18/25 06/18/25 Lei Thacker Health Navigator 09/17/24 documented as of this encounter
--- OUTSIDE RECORDS SUMMARY | 2025-08-07 10:43 | XMS_ITS | Encounter Summary ---
Author Organization [employer] Address [address] [place] [address] 7 [place] [address] Care Team Providers Care Splicer Machine Operator Name Role Phone Lei Thacker Unavailable Unavailable Sharmila Azar DO Primary Care Provider [phone] Inactive/Transferred Primary Care Provider Unava ilable Reason for Visit * Reason Comments Med Refill Encounter Details Date Type Department Care Team (Late st Contact Info) Description 11/09/2024 Refill [place] [facility] MEDICAL [address] [place] [address] Francheska Tucker FNP [address] [place] [address] Acquired hypothyroidism Social History Tobacco Use Types [...] documented as of this encounter Care Teams Splicer Machine Operator Relationship Specialty Start Date End Date Sharmila AzarDO [address] [place] [address] PCP - General Family Medicine 11/02/24 06/17/25 Inactive/Transferred PCP - General 06/18/25 06/18/25 Lei Thacker Health Navigator 09/17/24 documented as of this encounter
--- OUTSIDE RECORDS SUMMARY | 2025-08-07 10:43 | XMS_ITS | Encounter Summary ---
Author Organization [employer] Address [address] [place] [address] 7t [place] [address] Care Team Providers Care Medicare Interviewer Name Role Phone Lei Thacker Unavailable Unavailable Encounter Details Date Type Department Care Team (Late st Contact Info) Description 07/22/2025 Results Follow-Up [facility] MEDICAL [address] [place] [address] Sharmila Azar DO [address] [place] [address] TSH with Reflex to Free T4 [[id number]] Social History Tobacco Use Types Packs/Day Years [...] documented as of this encounter Care Teams Medicare Interviewer Relationship Specialty Start Date End Date Lei Thacker Health Navigator 09/17/24 documented as of this encounter
--- OUTSIDE RECORDS SUMMARY | 2025-08-07 10:43 | XMS_ITS | Encounter Summary ---
Author Organization [email or web address] Address [address] [place] [address] 7 [place] [address] Care Team Providers Care Field Specialist Name Role Phone Shilpa Miller CNP Primary Care Provider [phone] Francheska Tucker Primary Care Provider [phone] Lei Thacker Unavailable Unavailable Sharmila Azar DO Primary Care Provider [phone] Inactive/Transferred Primary Care Provider Unava ilable Encounter Details Date Type Department Care Team (Late st Contact Info) Description 10/27/2022 Abstract Pat [facility] MEDICAL [address] [place] [address] Shilpa Miller CNP 73 [place] [address] Social History Tobacco Use Types Packs/Day Years [...] on filedocumented in this encounter Care Teams Field Specialist Relationship Specialty Start Date End Date Shilpa Miller CNP [address] [place] [address] PCP - General Family Medicine 10/16/22 10/24/23 Francheska Tucker FNP [address] [place] [address] PCP - General Family Medicine 10/25/23 11/01/24 Sharmila Azar DO 73 [facility] [place] [address] PCP - General Family Medicine 11/02/24 06/17/25 Inactive/Transferred PCP - General 06/18/25 06/18/25 Lei Thacker Health Navigator 09/17/24 documented as of this encounter
--- OUTSIDE RECORDS SUMMARY | 2025-08-07 10:43 | XMS_ITS | Encounter Summary ---
Author Organization [employer] Address [address] [place] [address] [address]t [place] [address] Care Team Providers Care Bowling Floor Manager Name Role Phone Francheska Tucker Primary Care Provider [phone] Lei Thacker Unavailable Unavailable Sharmila Azar DO Primary Care Provider [phone] Inactive/Transferred Primary Care Provider Unava ilable Encounter Details Date Type Department Care Team (Late st Contact Info) Description 07/04/2024 Orders Only [place] [facility] MED[facility] [address] [place] [address] Francheska Tucker FNP [address] [place] [address] Social History Tobacco Use Types Packs/Day Years [...] documented as of this encounter Care Teams Bowling Floor Manager Relationship Specialty Start Date End Date Francheska Tucker FNP 73 [place] [address] PCP - General Family Medicine 10/25/23 11/01/24 Sharmila Azar DO 73 [facility] [place] [address] PCP - General Family Medicine 11/02/24 06/17/25 Inactive/Transferred PCP - General 06/18/25 06/18/25 Lei Thacker Health Navigator 09/17/24 documented as of this encounter
--- OUTSIDE RECORDS SUMMARY | 2025-08-07 10:43 | XMS_ITS | Encounter Summary ---
Author Organization [employer] Address [address] [place] [address] 7t [place] [address] Care Team Providers Care Rand Maker Name Role Phone Lei Thacker Unavailable Unavailable Sharmila Azar DO Primary Care Provider [phone] Inactive/Transferred Primary Care Provider Unava ilable Reason for Visit * Reason Onset Date Comments Med Refill 11/05/2024 Encounter Details Date Type Department Care Team (Late st Contact Info) Description 11/05/2024 Refill [place] [facility] MEDICAL [address] [place] [address] Shilpa Miller, MARIA C [address] [place] [address] Type 2 diabetes mellitus with diabetic polyneuropathy ([facility]/HCC) Social History Tobacco Use Types [...] documented as of this encounter Care Teams Rand Maker Relationship Specialty Start Date End Date Sharmila Azar DO [address] [place] [address] PCP - General Family Medicine 11/02/24 06/17/25 Inactive/Transferred PCP - General 06/18/25 06/18/25 Lei Thacker Health Navigator 09/17/24 documented as of this encounter
--- OUTSIDE RECORDS SUMMARY | 2025-08-07 10:43 | XMS_ITS | Encounter Summary ---
Author Organization [employer] Address [address] [place] [address] 7 [place] [address] Care Team Providers Care Shift Production Supervisor Name Role Phone Shilpa Miller CNP Primary Care Provider [phone] Francheska Tucker Primary Care Provider Lei Thacker Unavailable Unavailable Sharmila Azar DO Primary Care Provider [phone] Inactive/Transferred Primary Care Provider Unava ilable Encounter Details Date Type Department Care Team (Late st Contact Info) Description 10/26/2022 Abstract Pat [facility] MEDICAL [address] [place] [address] Shilpa Miller CNP [address] [place] [address] Social History Tobacco Use Types Packs/Day Years [...] Results * (ABNORMAL) Hemoglobin A1c (06/28/2022) Pathologist [facility] Hemoglobin A1C 7.6(A) 4.0 - 6.0 % Blood Venous blood specimen / Unknown Historical Provider LAB BLOOD ORDERABLES Layla l Result * Lipid Panel, Standard (06/06/2022) Pathologist [facility] Triglycerides 98 40 - 160 mg/dL Cholesterol 138 0 - 200 mg/dL HDL Cholesterol 60 35 - 70 mg/dL LDL Cholesterol 58 mg/dL Blood Venous blood specimen / Unknown Historical Provider LAB BLOOD ORDERABLES Layla l Result * Mammography (12/25/2021) Pathologist [facility] Mammogram BI RADS: 2 Benign Anatomical Region Laterality Modality Other [facility] Provider HEALTH MAINTENANCE Final Result documented in this encounter Visit Diagnoses Not on filedocumented in this encounter Care Teams Shift Production Supervisor Relationship Specialty Start Date End Date Shilpa Miller CNP 73 [place] [address] PCP - General Family Medicine 10/16/22 10/24/23 Francheska Tucker FNP 73 [facility] [place] [address] PCP - General Family Medicine 10/25/23 11/01/24 Sharmila Azar DO 73 [facility] [place] [address] PCP - General Family Medicine 11/02/24 06/17/25 Inactive/Transferred PCP - General 06/18/25 06/18/25 Lei Thacker Health Navigator 09/17/24 documented as of this encounter
--- OUTSIDE RECORDS SUMMARY | 2025-08-07 10:43 | XMS_ITS | Patient Health Record ---
Author Organization [employer] [facility] Address [address] [facility] [address] [place] [address] Care Team Providers Care Clothing Consultant Name Role Phone Laisha Castañeda Unavailable [phone] Reason For Referral No Information Medications Medication SIG (Take, Route, Frequency, Duration) Notes Start Date End Date Status Viibryd 40MG ORAL; Duration: -3 [facility] 04/28/2014 Active Vitamin D3 1000 IU ORAL daily; Duration: - [facility] 2013 Active Aspirin EC 81MG 1 ORAL daily; Durati on: - [facility] 04/28/2014 Active Nebulizer ORAL; Duration: - [facility] 04/28/2014 Active oxyCODONE HCl 5MG ORAL; Duration: - [facility] 04/28/2014 Active Pravastatin Sodium 20MG 1 ORAL daily; Du ration: - [facility] 04/28/2014 Active Singulair 10MG ORAL; Duration: - [facility] 04/28/2014 Active Combivent 103-18 2 INHALE four times daily; Duration: - [facility] 04/28/2014 Active KlonoPIN 0.5MG ORAL four times shannon y; Duration: [facility] 04/28/2014 Active Levothyroxine Sodium 125MCG 1 ORAL daily ; Duration: - [facility] 04/28/2014 Active metFORMIN HCl ER 500MG ORAL; Duration: - [facility] 04/28/20 14 Active Problems Problem Type SNOMED Code ICD Code Onset Dates Problem Status W/U Status Risk Notes Problem Hypothyroidism (85094344) Unspecified hypothyroidism (244.9) Active confirmed Problem Type II diabetes mellitus without complication (025746352) Diabetes mellitus without mention of complication, type II or unspecified type, not stated as uncontrolled (250.00) Active confirmed Problem Pure hypercholesterolemia (112507685) Pure hypercholesterolemia (272.0) Active confirmed Problem Morbid obesity (942237757) Morbid obesity (278.01) Active confirmed Problem Schizoaffective disorder (98421618) Schizoaffective disorder, unspecified (295.70) Active confirmed Problem Panic disorder with agoraphobia (71226300) Agoraphobia with panic disorder (300.21) Active confirmed Problem Obsessive-compulsive disorder (064410934) Obsessive-compulsive disorders (300.3) Active confirmed Problem Posttraumatic stress disorder (52977872) Posttraumatic stress disorder (309.81) Active confirmed Problem Attention deficit hyperactivity disorder (499191309) 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) Active confirmed Problem Migraine (disorder) (10802774) Migraine, unspecified without mention of intractable migraine without mention of status migrainosus (346.90) Active confirmed Problem Asthma (disorder) (236118280) Asthma, unspecified, unspecified status (493.90) Active confirmed Problem Sleep apnea (71046396) Unspecified sleep apnea (780.57) Active confirmed Problem Hypertension (26476169) Hypertension (401.9) Active confirmed Plan Of Treatment No Information Insurance Providers Payer Name Payer Address Payer Phone Subscriber Number Group Number Insured Name Patient Relationship to Insured Coverage Start Date Coverage End Date MEDICARE [address] [place] [id number] [phone] [id number] SEBASTIÁN GARCIA Self - patient is the [...]
--- OUTSIDE RECORDS SUMMARY | 2025-08-07 10:43 | XMS_ITS | Encounter Summary ---
Author Organization [employer] Address [address] [place] [address] 7t [place] [address] Care Team Providers Care Special Delivery Messenger Name Role Phone Lei Thacker Unavailable Unavailable Encounter Details Date Type Department Care Team (Late st Contact Info) Description 07/17/2025 Orders Only [facility] [address] [place] [address] Sharmila Azar DO [address] [place] [address] Arthralgia of both knees (Primary Dx); Lymphedema; [...] the past 12 months, has t he [employer], gas, oil or water company threatened to [...] Expected: 07/23/2025 (Approximate), Expires: 07/23/2026 Blood culture [id number] Microbiology Routine Abnormal CBC ESR raised Expected: 07/23/2025, Expires: 07/23/2026 documented as of this encounter Procedures Procedure Name Priority Date/Time Associated Diagnosis Comments CBC WITH AUTO DIFFERENTIAL Routine 07/20/2025 9:20 AM EDT Arthralgia of both knees Lymphedema COMPREHENSIVE METABOLIC PANEL Routine 07/20/2025 9:20 AM EDT Arthralgia of both knees Lymphedema documented in this encounter Results * (ABNORMAL) Comprehensive Metabolic Panel [[id number]] (07/20/2025 9:20 AM EDT) Glucose 143(H) 70 [...] Narrative Resulting Agency Comment Performed at: - [address] [id number] Lighting Fixture Installer: Megan Curry MD, Phone: [phone] us Sharmila Azar DO LAB BLOOD ORDERABLES [...] Agency Comment Performed at: 01 - [facility] [address] [id number] Lighting Fixture Installer: Meagn Curry MD, Phone: [phone] us Sharmila Azar DO LAB BLOOD ORDERABLES [...] documented as of this encounter Care Teams Special Delivery Messenger Relationship Specialty Start Date End Date Lei Thacker Health Navigator 09/17/24 documented as of this encounter
--- OUTSIDE RECORDS SUMMARY | 2025-08-07 10:43 | XMS_ITS | Encounter Summary ---
Author Organization [employer] Address [address] [place] [address] 7 [place] [address] Care Team Providers Care Brass Finisher Name Role Phone Lei Thacker Unavailable Unavailable Reason for Referral * Consultation (Routine) - Pending Review Specialty Diagnoses / Procedures Referred By Cristina coughlin Referred To Contact Endocrinology Diagnoses Low serum cortisol level Sharmila Azar DO [address] [place] [address] Phone: tel: fax: [facility] Endocrinology [address] [facility] 3rd Floor [address] [place], [place] Phone: tel: fax: Referral ID Status Reason Start Date Expiration Date Visits Requested Visits Authorized [id number] Pending Review Specialty Services Required 07/17/2025 07/17/2026 1 1 Encounter Details Date Type Department Care Team (Late st Contact Info) Description 07/17/2025 Results Follow-Up [facility] [address] [place] [address] Sharmila Azar DO [address] [place] [address] Cortisol, Total, Magnesium 674854, Sed Rate by Modified Lilibeth, Additional followed-up [...] ACTH, Plasma (07/20/2025 9:20 AM EDT) Pathologist [facility] ACTH, Plasma 23.4 7.2 - 63.3 pg/mL [facility] 1 Comment:ACTH reference inter oliver for samples collected between 7 and 10 AM. Blood Venous blood specimen / Unknown 07/20/2025 9:20 AM EDT 07/20/2025 Narrative Resulting Agency Comment Performed at: 01 - [facility], [place], [place] [id number] [address] Justice: Megan Curry MD, Phone: [phone] us Sharmila Azar DO LAB BLOOD ORDERABLES Final Res ult [facility] 1 * Rheumatoid Arthritis (RA) Profile [[id number]] (07/20/2025 9:19 AM EDT) Rheumatoid Factor (RF) <10.0 <14.0 IU/mL [facility] 1 Anti-CCP Ab, IgG/IgA 3 0 - 19 units [facility] 1 Comment: Negative <20 Weak positive 20 - 39 Moderate positive 40 - 59 Strong positive >59 Blood Venous blood specimen / Unknown 07/20/2025 9:19 AM EDT 07/20/2025 Narrative Resulting Agency Comment Performed at: - [facility] [id number] [address] Justice: Megan Curry MD, Phone: [phone] [facility] LAB BLOOD ORDERABLES Final Res ult Performing Organization Address [facility] Co de Phone Number [facility] 1 [...] Narrative Resulting Agency Comment Performed at: - [facility] [id number] [address] Justice: Megan Curry MD, Phone: [phone] [facility] LAB BLOOD ORDERABLES Final Res ult Performing Organization Address City/[facility]/ZIP Co de Phone Number [facility] 1 documented in this encounter Visit Diagnoses Diagnosis Low serum cortisol level- Primary Arthralgia of both knees Lymphedema Other noninfectious lymphedema documented in this encounter Additional Health Concerns Assessment Noted Time PHQ-9 Depression Total Score: 6 06/22/20 25 2:22 PM EDT documented as of this encounter Care Teams Brass Finisher Relationship Specialty Start Date End Date Lei Thacker Health Navigator 09/17/24 documented as of this encounter
== END 2025-08-07 11:01 | disposition home or self-care (01) ==
LOC: HO.HMCFM 09:57
PROVIDERS: PCP Nurse Practitioner Family; Visit Provider Nurse Practitioner Family
DX: Z00.8 Encounter for other general examination (principal); Z68.44 Body mass index [BMI] 60.0-69.9, adult

== ENCOUNTER → 2025-08-07 09:56 | Outpatient (BNVA) | payer MEDICARE, MEDICAID, SELFPAY | PROVIDERS: PCP Nurse Practitioner Family; Visit Provider Nurse Practitioner Family | DX: Z00.8 Encounter for other general examination (principal); E11.9 Type 2 diabetes mellitus without complications; G47.33 Obstructive sleep apnea (adult) (pediatric); E66.9 Obesity, unspecified; R01.1 Cardiac murmur, unspecified; Z68.44 Body mass index [BMI] 60.0-69.9, adult; Z99.89 Dependence on other enabling machines and devices | CPT/HCPCS: 96127; 99212 ==

== ENCOUNTER 2025-08-10 13:59 | Outpatient (AMB) | payer MEDICARE, MEDICAID, SELFPAY ==
[2025-08-10 14:08] VITALS: BMI 65.8
--- NOTE | 2025-08-10 14:08 | MHC.OFFVIS ---
Vital Signs 08/10/25 14:08 Height 5 ft 2 in Weight 360 lb BMI 65.8 Intake Visit Reasons: Type II Intake Note: Elyssa is a 55 year old female who presents today as a new patient for a diabetic foot exam. Pt reports her glucose is currently at 187 and her last reported A1c is 7.1 as of 06/22/25. She states she has bilateral neuropathy in her feet which is why she has numbness and tingling. She denies any history of wounds to her feet but she does note bilateral blisters on her pinky toes. She has no history of injuries to her back and she had taken gabapentin in the past but due to adverse reaction she has stopped. Patient mention she has an ingrown on her right hallux on the medial and lateral borders and a toe deformity on her left hallux. Allergies lamotrigine (From Lamictal) Allergy (Severe, Verified 08/10/25 14:08) Muscle Pain lithium Allergy (Severe, Verified 08/10/25 14:08) seizures omalizumab (Xolair) Allergy (Severe, Verified 08/10/25 14:08) anaphylaxis penicillin G Allergy (Severe, Verified 08/10/25 14:08) Anaphylaxis Sulfa (Sulfonamide Antibiotics) Allergy (Severe, Verified 08/10/25 14:08) anaphylaxis sulfamethoxazole (From Bactrim) Allergy (Severe, Verified 08/10/25 14:08) Anaphylaxis sumatriptan Allergy (Severe, Verified 08/10/25 14:08) Unknown trimethoprim (From Bactrim) Allergy (Severe, Verified 08/10/25 14:08) Anaphylaxis vortioxetine (From Trintellix) Allergy (Severe, Verified 08/10/25 14:08) serotin toxicity acetaminophen (From Tylenol) Allergy (Intermediate, Verified 08/10/25 14:08) Hives desvenlafaxine Allergy (Intermediate, Verified 08/10/25 14:08) Wheezing iodine Allergy (Intermediate, Verified 08/10/25 14:08) Rash ziprasidone Allergy (Intermediate, Verified 08/10/25 14:08) Seizure insulin aspart (From Novolog U-100 Insulin aspart) Allergy (Mild, Verified 08/10/25 14:08) Rash pediatric multivitamin no.130 (From Floriva Plus (with biotin)) Allergy (Mild, Verified 08/10/25 14:08) hives sodium fluoride (From Floriva Plus (with biotin)) Allergy (Mild, Verified 08/10/25 14:08) hives amoxicillin Allergy (Unknown, Verified 08/10/25 14:08) Unknown azithromycin (Zithromax) Allergy (Unknown, Verified 08/10/25 14:08) Unknown furosemide (Lasix) Allergy (Unknown, Verified 08/10/25 14:08) Unknown hydrochlorothiazide Allergy (Unknown, Verified 08/10/25 14:08) Unknown lisinopril Allergy (Unknown, Verified 08/10/25 14:08) Unknown metformin Allergy (Unknown, Verified 08/10/25 14:08) Unknown montelukast (Singulair) Allergy (Unknown, Verified 08/10/25 14:08) Unknown pravastatin Allergy (Unknown, Verified 08/10/25 14:08) Unknown spironolactone Allergy (Unknown, Verified 08/10/25 14:08) Unknown sulfacetamide Allergy (Unknown, Verified 08/10/25 14:08) Unknown gabapentin Allergy (Verified 08/10/25 14:08) night sweats liraglutide Adverse Reaction (Intermediate, Verified 08/10/25 14:08) Nausea and Vomiting semaglutide Adverse Reaction (Intermediate, Verified 08/10/25 14:08) Nausea and Vomiting zolair Allergy (Severe, Uncoded 07/29/25 13:00) Anaphylaxis JAYRO INHIBITORS Allergy (Unknown, Uncoded 07/29/25 13:00) Unknown LATEX Allergy (Unknown, Uncoded 07/29/25 13:00) Unknown NSAIDS Allergy (Unknown, Uncoded 07/29/25 13:00) Unknown SHELLFISH Allergy (Unknown, Uncoded 07/29/25 13:00) Unknown Sulfacet-R Allergy (Unknown, Uncoded 07/29/25 13:00) Unknown TREE NUTS Allergy (Unknown, Uncoded 07/29/25 13:00) Unknown HPI HPI Type II: Details: The patient is a 55-year-old female with past medical history of diabetes mellitus type 2, hypertension, hyperlipidemia, hypothyroidism, gerd, morbid obesity, lymphedema, presents for diabetic foot evaluation and painful toenails. The patient has a history of diabetes mellitus, which she mentions is currently well-controlled with a Hemoglobin A1c in the 7 % range. She has been experiencing ingrown toe-nail problems for an extended period, with a previous procedure performed approximately 20 years ago to remove the outer edges of the nail. The patient also reports a history of lymphedema, for which she uses daily lymphedema wraps, although she did not wear them today. She experiences neuropathy in her feet, characterized by tingling sensations. However, she denies history of wounds. Additionally, the patient has knee osteoarthritis, which has been a barrier to knee replacement surgery due to her weight. She also has a hammertoe, which contributes to the formation of dry blisters on her pinky toe. Medical History: - Diabetes Mellitus - Lymphedema - Neuropathy - Knee Osteoarthritis (left) - Hammertoe Surgical History: - Nail procedure to remove outer edges approximately 20 years ago Social History: - The patient has difficulty applying lymphedema wraps without assistance. - ataxic gait with use of walker [facility] Medical History Hx of seasonal allergies History of posttraumatic stress disorder (PTSD) Hx of mammogram (~04/2025) Torn meniscus Panic disorder Anxiety and depression Neuropathy Headache Incontinence GERD (gastroesophageal reflux disease) IBS (irritable bowel syndrome) Swelling Edema Osteoarthritis Arthritis Thyroid disorder Diabetes High cholesterol HTN (hypertension) Asthma Surgical History Hx of colonoscopy (~2018) History of tonsillectomy Previous section Family History Mother Asthma HTN (hypertension) High cholesterol Diabetes Cardiovascular disease Thyroid disorder Mental health disorder Maternal Grandmother HTN (hypertension) High cholesterol Cardiovascular disease Father High cholesterol Cardiovascular disease Lung cancer Mental health disorder Paternal Grandfather No problems noted. Maternal Grandfather Cardiovascular disease Paternal Grandmother Leukemia Social History Housing: House Alcohol intake: never Patient Tobacco Use Status: Never used Tobacco e-Cigarette/Vaping Use: Never Used Second Hand Smoke Exposure: No Current occupational status: disabled Cognitive needs: No Hearing needs: Yes (left hearing aide) Vision needs: Yes (wear glasses) Review of Systems Const All systems reviewed & are unremarkable except as noted in HPI and below Physical Exam Vital Signs: BMI result Body Mass Index 65.8 Extrem Other: *Bilateral Lower Extremity Focused Diabetic Foot Exam Vascular: DP/PT 2/4, CFT<3s to digits, TG warm to cool, no pedal edema, pedal hair absent; lymphedematous legs bilaterally Derm: Skin: No open lesions, ulcerations, or calluses. Interdigital spaces: Clear, no maceration or fungal infection. Nails: Elongated thickened dystrophic discolored toenails x10 with incurvated and ingrown bilateral hallucal nails. Neuro: Protective sensation grossly diminished to bilateral lower extremities. Msk: Deformities: Adductovarus 5th toe bilateral feet, right worse than left. No bunions, Charcot changes, or other structural abnormalities. Muscle strength: 4/5 in all muscle groups. Gait: Normal, no antalgic or steppage gait observed. Footwear Assessment: Shoes inspected; appropriate fit, no excessive wear, or foreign objects noted. Office Procedures AMB Debridement/Avulsion Podia Details: Procedure: Nail debridement Location: Bilateral feet Anesthesia: N/A Description: The affected toenails were cleansed with an antiseptic solution. Using sterile nail nippers and a rotary rosa, dystrophic and mycotic nail material was carefully debrided and reduced in thickness. Care was taken to avoid trauma to the surrounding skin and nail bed. All debris was removed as tolerated. The area was inspected for signs of infection or ulceration. Patient tolerated the procedure well without complications. Tolerance: Patient tolerated procedure well, no immediate complications. Class A and B findings as per physical exam findings above. The patient has a diagnosis of diabetes mellitus and presents with elongated, thickened toenails. Due to underlying diabetic neuropathy and mild vascular disease findings, the patient is at increased risk for complications such as ulceration, infection, and difficulty with self-care. Debridement of elongated toenails is medically necessary to prevent development of pressure-related lesions, reduce risk of secondary infection, and maintain foot health in high-risk comorbidities. 79925-Ssxshnagkfq of Nail 6+ Procedure code (CPT) selection complete Assessment & Plan Assessment & Plan (1) Diabetes mellitus with complication: Code(s): E11.8 - Type 2 diabetes mellitus with unspecified complications Category: Medical Plan: Risk Stratification: No current ulceration, infection, or pre-ulcerative lesion. No loss of protective sensation or peripheral arterial disease. No plans for further testing/referrals for non-invasive vascular studies. Patient is at low risk for diabetic foot complications at this time. Recommendations: Continue routine foot care and daily self-inspection. Recommend moisturizing daily. Recommend supportive proper fitting shoe-wear. The patient may require diabetic shoes in the future. Reinforced diabetic foot education and risks from peripheral neuropathy. (2) Tinea unguium: Code(s): B35.1 - Tinea unguium Category: Medical Plan: Debrided elongated thickened toenails x 10 using a sterile nail Nipper. Follow up in 9 weeks (3) Lymphedema: Code(s): I89.0 - Lymphedema, not elsewhere classified Category: Medical Plan: Continue lymphedema dressings as per other provider/wound care team. (4) Ataxic gait: Code(s): R26.0 - Ataxic gait Category: Medical Plan: No ataxic gait due to foot/ankle conditions. (5) Hammertoe of right foot: Code(s): M20.41 - Other hammer toe(s) (acquired), right foot Category: Medical Plan: Recommended off-loading cushion/gel pad. no lesions or pre-ulcerative lesions at this time. Orders: Orders AMB Debridement/Avulsion Podiatry Today B35.1 - Tinea unguium Coding Level of Care Code New Pt Level 4 (01867) Diagnoses Diabetes mellitus with complication E11.8 Tinea unguium B35.1 Lymphedema I89.0 Ataxic gait R26.0 Hammertoe of right foot M20.41 CPT Codes Skin Debridement - CPT: 76804-Wfuqjwvxmcy of Nail 6+ ([id number]) Time Spent (min) 30
--- OUTSIDE RECORDS SUMMARY | 2025-08-10 16:29 | XMS_ITS | Encounter Summary ---
Author Organization [employer] Address [address] [place] [address] 7t [place] [address] Care Team Providers Care Bottle Sorter Name Role Phone Francheska Tucker MADELEINE Primary Care Provider [phone] Lei Thacker Unavailable Unavailable Sharmila Azar DO Primary Care Provider [phone] Inactive/Transferred Primary Care Provider Unava ilable Reason for Visit * Reason Comments Med Change Request Encounter Details Date Type Department Care Team (Late st Contact Info) Description 01/14/2024 Oneyda Stewart [facility] [address] [place] [address] Shilpa Miller, HOT WALKER [address] [place] [address] Type 2 diabetes mellitus with diabetic polyneuropathy, with long-term current use of insulin ([facility]) Social History Tobacco Use Types [...] the past 12 months, has t he [employer], oil or water [employer] threatened to shut off services in your [...] was filled out yesterday and faxed to [employer] there was another TE on this. documented in this encounter Plan of Treatment Not on file documented as of this encounter Visit Diagnoses Diagnosis Type 2 diabetes mellitus with diabetic polyneuropathy, with long-term current use of insulin (HCC) documented in this encounter Care Teams Bottle Sorter Relationship Specialty Start Date End Date Francheska Tucker FNP [address] [facility] [id number] PCP - General Family Medicine 10/25/23 11/01/24 Sharmila Azar DO [address] [place] [id number] PCP - General Family Medicine 11/02/24 06/17/25 Inactive/Transferred PCP - General 06/18/25 06/18/25 Lei Thacker Health Navigator 09/17/24 documented as of this encounter
--- OUTSIDE RECORDS SUMMARY | 2025-08-10 16:29 | XMS_ITS | Encounter Summary ---
Author Organization [employer] Address [address] [facility] 7 [place] [address] Care Team Providers Care Tire Building Supervisor Name Role Phone Lei Thacker Unavailable Unavailable Sharmila Azar DO Primary Care Provider [phone] Inactive/Transferred Primary Care Provider Unava ilable Reason for Visit * Reason Comments Med Refill Encounter Details Date Type Department Care Team (Late st Contact Info) Description 03/02/2025 Refill [place] [facility] [address] [place] [address] Sharmila Azar DO [address] [place], [place] [id number] Anxiety; PTSD (post-traumatic stress disorder) Social History [...] documented as of this encounter Care Teams Tire Building Supervisor Relationship Specialty Start Date End Date Sharmila Azar DO [address] [place] [address] PCP - General Family Medicine 11/02/24 06/17/25 Inactive/Transferred PCP - General 06/18/25 06/18/25 Lei Thacker Health Navigator 09/17/24 documented as of this encounter
--- OUTSIDE RECORDS SUMMARY | 2025-08-10 16:29 | XMS_ITS | Encounter Summary ---
Author Organization [employer] Address [address] [place] [address] 7 [place] [address] Care Team Providers Care Commercial Journeyman Electrician Name Role Phone Francheska Tucker MADELEINE Primary Care Provider [phone] Lei Thacker Unavailable Unavailable Sharmila Azar DO Primary Care Provider [phone] Inactive/Transferred Primary Care Provider Unava ilable Reason for Visit * Reason Comments Med Change Request Encounter Details Date Type Department Care Team (Late st Contact Info) Description 05/12/2024 Oneyda Stewart [facility] [address] [place] [address] Shilpa Miller, MARIA C [address] [place] [address] Psychophysiological insomnia Social History Tobacco Use Types [...] Miscellaneous Notes * Telephone Encounter - Branden Mcclure CMA - 05/12/2024 9:56 AM EDT Pt tried [...] as of this encounter Care Teams Commercial Journeyman Electrician Relationship Specialty Start Date End Date Francheska Tucker FNP [address] [facility] [place] [address] PCP - General Family Medicine 10/25/23 11/01/24 Sharmila Azar DO [address] [facility] [place] [address] PCP - General Family Medicine 11/02/24 06/17/25 Inactive/Transferred PCP - General 06/18/25 06/18/25 Lei Thacker Health Navigator 09/17/24 documented as of this encounter
--- OUTSIDE RECORDS SUMMARY | 2025-08-10 16:29 | XMS_ITS | Encounter Summary ---
Author Organization [employer] Address [address] [facility] 7 [place] [address] Care Team Providers Care Veterinarian Poultry Name Role Phone Lei Thacker Unavailable Unavailable Sharmila Azar DO Primary Care Provider [phone] Inactive/Transferred Primary Care Provider Unava ilable Reason for Visit * Reason Comments Med Change Request Encounter Details Date Type Department Care Team (Late st Contact Info) Description 01/26/2025 Oneyda Stewart [facility] [address] [place] [address] Sharmila Azar DO [address] [place], [place] [id number] Type 2 diabetes mellitus with diabetic polyneuropathy, with long-term current use of insulin ([facility]) Social History Tobacco Use Types Packs/Day [...] documented as of this encounter Care Teams Veterinarian Poultry Relationship Specialty Start Date End Date Sharmila Azar DO [address] [place] [address] PCP - General Family Medicine 11/02/24 06/17/25 Inactive/Transferred PCP - General 06/18/25 06/18/25 Lei Thacker Health Navigator 09/17/24 documented as of this encounter
--- OUTSIDE RECORDS SUMMARY | 2025-08-10 16:29 | XMS_ITS | Patient Health Record ---
Author Organization [employer] [facility] Address [address] [facility] [address] [place] [address] Care Team Providers Care Day Habilitation Specialist Name Role Phone Laisha Castañeda Unavailable [phone] Reason For Referral No Information Medications Medication SIG (Take, Route, Frequency, Duration) Notes Start Date End Date Status Viibryd 40MG ORAL; Duration: - [facility] 04/28/2014 Active Vitamin D3 1000 IU ORAL daily; Duration: - [facility] 2013 Active Aspirin EC 81MG 1 ORAL daily; Durati on: - [facility] 04/28/2014 Active Nebulizer ORAL; Duration: - [facility] 04/28/2014 Active oxyCODONE HCl 5MG ORAL; Duration: - [facility] 04/28/2014 Active Pravastatin Sodium 20MG 1 ORAL daily; Du ration: - [facility] 04/28/2014 Active Singulair 10MG ORAL; Duration: - [facility] 04/28/2014 Active Combivent 103-18 2 INHALE four times daily; Duration: - [facility] 04/28/2014 Active KlonoPIN 0.5MG ORAL four times shannon y; Duration: [facility] 04/28/2014 Active Levothyroxine Sodium 125MCG 1 ORAL daily ; Duration: - [facility] 04/28/2014 Active metFORMIN HCl ER 500MG ORAL; Duration: - [facility] 04/28/20 14 Active Problems Problem Type SNOMED Code ICD Code Onset Dates Problem Status W/U Status Risk Notes Problem Hypothyroidism (41098290) Unspecified hypothyroidism (244.9) Active confirmed Problem Type II diabetes mellitus without complication (331644180) Diabetes mellitus without mention of complication, type II or unspecified type, not stated as uncontrolled (250.00) Active confirmed Problem Pure hypercholesterolemia (353139068) Pure hypercholesterolemia (272.0) Active confirmed Problem Morbid obesity (640854429) Morbid obesity (278.01) Active confirmed Problem Schizoaffective disorder (43153697) Schizoaffective disorder, unspecified (295.70) Active confirmed Problem Panic disorder with agoraphobia (01623495) Agoraphobia with panic disorder (300.21) Active confirmed Problem Obsessive-compulsive disorder (284283845) Obsessive-compulsive disorders (300.3) Active confirmed Problem Posttraumatic stress disorder (48094773) Posttraumatic stress disorder (309.81) Active confirmed Problem Attention deficit hyperactivity disorder (489636678) 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) Active confirmed Problem Migraine (disorder) (70972303) Migraine, unspecified without mention of intractable migraine without mention of status migrainosus (346.90) Active confirmed Problem Asthma (disorder) (618691579) Asthma, unspecified, unspecified status (493.90) Active confirmed Problem Sleep apnea (27845020) Unspecified sleep apnea (780.57) Active confirmed Problem Hypertension (25375853) Hypertension (401.9) Active confirmed Plan Of Treatment No Information Insurance Providers Payer Name Payer Address Payer Phone Subscriber Number Group Number Insured Name Patient Relationship to Insured Coverage Start Date Coverage End Date MEDICARE [address] [place] [id number] [phone] [id number] SEBASTIÁN GARCIA Self - patient is the [...]
--- OUTSIDE RECORDS SUMMARY | 2025-08-10 16:29 | XMS_ITS | Encounter Summary ---
Author Organization [employer] Address 75 [facility] 7 [place] [address] Care Team Providers Care Pipeline Gang Supervisor Name Role Phone Lei Thacker Unavailable Unavailable Sharmila Azar DO Primary Care Provider [phone] Inactive/Transferred Primary Care Provider Unava ilable Reason for Visit * Reason Onset Date Comments Med Refill 12/24/2024 Encounter Details Date Type Department Care Team (Late st Contact Info) Description 12/24/2024 Refill [place] [facility] 73 [place] [address] Sharmila Azar DO 73 [place], [place] [phone] Anxiety; PTSD (post-traumatic stress disorder) Social History [...] t he electric, gas, oil or water [facility] threatened to shut off services in your [...] documented as of this encounter Care Teams Pipeline Gang Supervisor Relationship Specialty Start Date End Date Sharmila Azar DO 73 [place] [address] PCP - General Family Medicine 11/02/24 06/17/25 Inactive/Transferred PCP - General 06/18/25 06/18/25 Lei Thacker Health Navigator 09/17/24 documented as of this encounter
--- OUTSIDE RECORDS SUMMARY | 2025-08-10 16:29 | XMS_ITS | Encounter Summary ---
Author Organization [employer] Address [address] [facility] [address] 7t [place] [address] Care Team Providers Care Automotive Fleet Supervisor Name Role Phone Lei Thacker Unavailable Unavailable Sharmila Azar Primary Care Provider [phone] Inactive/Transferred Primary Care Provider Unava ilable Reason for Visit * Reason Onset Date Comments Med Refill 01/31/2025 Encounter Details Date Type Department Care Team (Late st Contact Info) Description 01/31/2025 Refill Pat [facility] 70 [place] [address] Francheska Tucker FNP 73 [place] [address] Essential (primary) hypertension Social History Tobacco Use [...] documented as of this encounter Care Teams Automotive Fleet Supervisor Relationship Specialty Start Date End Date DoeSharmila 73 [place] [address] PCP - General Family Medicine 11/02/24 06/17/25 Inactive/Transferred PCP - General 06/18/25 06/18/25 Lei Thacker Health Navigator 09/17/24 documented as of this encounter
--- OUTSIDE RECORDS SUMMARY | 2025-08-10 16:29 | XMS_ITS | Encounter Summary ---
Author Organization [employer] Address 75 [facility] 7t [place] [address] Care Team Providers Care Auto Suspension And Steering Mechanic Name Role Phone Francheska Tucker Primary Care Provider [phone] Lei Thacker Unavailable Unavailable Sharmila Azar DO Primary Care Provider [phone] Inactive/Transferred Primary Care Provider Unava ilable Encounter Details Date Type Department Care Team (Late st Contact Info) Description 07/25/2024 Orders Only [facility] [address] [place], [place] [id number] Francheska Tucker FNP [address] [place] [address] Social History Tobacco Use Types Packs/Day Years [...] the past 12 months, has t he [employer], gas, oil or water [employer] threatened to shut off services in your [...] EDT) Blood Venous blood specimen / Unknown Francheska SALVADOR LAB BLOOD ORDERABLES Final Resul [...] as of this encounter Care Teams Auto Suspension And Steering Mechanic Relationship Specialty Start Date End Date Francheska Tucker FNP 73 [place] [address] PCP - General Family Medicine 10/25/23 11/01/24 Sharmila Azar DO 73 [place] [address] PCP - General Family Medicine 11/02/24 06/17/25 Inactive/Transferred PCP - General 06/18/25 06/18/25 Lei Thacker Health Navigator 09/17/24 documented as of this encounter
--- OUTSIDE RECORDS SUMMARY | 2025-08-10 16:29 | XMS_ITS | Encounter Summary ---
Author Organization [employer] Address 75 [facility] 7t [place] [address] Care Team Providers Care Crushing Mill Operator Name Role Phone Francheska Tucker MADELEINE Primary Care Provider [phone] Lei Thacker Unavailable Unavailable Sharmila Azar DO Primary Care Provider [phone] Inactive/Transferred Primary Care Provider Unava ilable Encounter Details Date Type Department Care Team (Late st Contact Info) Description 06/25/[address] [facility] MEDICAL [address] [place], [place] [phone] Provider, MD Sharad Social History Tobacco Use [...] documented as of this encounter Care Teams Crushing Mill Operator Relationship Specialty Start Date End Date Francheska Tucker FNP 73 [facility] [place] [address] PCP - General Family Medicine 10/25/23 11/01/24 Sharmila Azar DO [address] [place] [address] PCP - General Family Medicine 11/02/24 06/17/25 Inactive/Transferred PCP - General 06/18/25 06/18/25 Lei Thacker Health Navigator 09/17/24 documented as of this encounter
--- OUTSIDE RECORDS SUMMARY | 2025-08-10 16:29 | XMS_ITS | Encounter Summary ---
Author Organization [employer] Address [address] [place] [address] 7t [place] [address] Care Team Providers Care Paint Supervisor Name Role Phone Shilpa Miller CNP Primary Care Provider Francheska Tucker Primary Care Provider [phone] Lei Thacker Unavailable Unavailable Sharmila Azar DO Primary Care Provider [phone] Inactive/Transferred Primary Care Provider Unava ilable Encounter Details Date Type Department Care Team (Late st Contact Info) Description 01/31/2023 Abstract Pat [facility] 73 [place] [address] Shilpa Miller CNP 73 [place] [address] Social History Tobacco Use Types Packs/Day Years [...] on filedocumented in this encounter Care Teams Paint Supervisor Relationship Specialty Start Date End Date Shilpa Mliler CNP [address] [place] [address] PCP - General Family Medicine 10/16/22 10/24/23 Francheska Tucker FNP [address] [place] [address] PCP - General Family Medicine 10/25/23 11/01/24 Sharmila Azar DO [address] [place] [address] PCP - General Family Medicine 11/02/24 06/17/25 Inactive/Transferred PCP - General 06/18/25 06/18/25 Lei Thacker Health Navigator 09/17/24 documented as of this encounter
--- OUTSIDE RECORDS SUMMARY | 2025-08-10 16:29 | XMS_ITS | Encounter Summary ---
Author Organization [employer] Address 75 [facility] 7t [place] [address] Care Team Providers Care Internist Medical Doctor Md Name Role Phone Lei Thacker Unavailable Unavailable Reason for Referral * Consultation (Routine) - Pending Review Specialty Diagnoses / Procedures Referred By Cristina t Referred To Contact Endocrinology Diagnoses Low serum cortisol level Sharmila Azar DO 73 [place] [address] Phone: tel: fax: [facility] Endocrinology [address] [place], [place] Phone: tel: fax: Referral ID Status Reason Start Date Expiration Date Visits Requested Visits Authorized [id number] Pending Review Specialty Services Required 07/17/2025 07/17/2026 1 1 Encounter Details Date Type Department Care Team (Late st Contact Info) Description 07/17/2025 Results Follow-Up [facility] MEDICAL 73 [place] [address] Sharmila Azar DO 73 [place] [address] Cortisol, Total, Magnesium [id number], Sed Rate by Modified Lilibeth, Additional followed-up [...] Resulting Agency Comment Performed at: 01 - [facility] [id number] Director Of Business Continuity: Megan Curry MD, Phone: [phone] us Sharmila Azar DO LAB BLOOD ORDERABLES Final Res ult [facility] 1 * Rheumatoid Arthritis (RA) Profile [[id number]] (07/20/2025 9:19 AM EDT) Rheumatoid Factor (RF) <10.0 <14.0 IU/mL [facility] 1 Anti-CCP Ab, IgG/IgA 3 0 - 19 units [facility] 1 Comment: Negative <20 Weak positive 20 - 39 Moderate positive 40 - 59 Strong positive >59 Blood Venous blood specimen / Unknown 07/20/2025 9:19 AM EDT 07/20/2025 Narrative Resulting Agency Comment Performed at: - [facility] [address] [id number] Director Of Business Continuity: Megan Curry MD, Phone: [phone] [facility] LAB BLOOD ORDERABLES Final Res ult Performing Organization Address City/[facility]/ZIP Co de Phone Number [facility] 1 * [...] Resulting Agency Comment Performed at: - [facility] [address] [id number] Director Of Business Continuity: Megan Curry MD, Phone: [phone] [facility] LAB BLOOD ORDERABLES Final Res ult Performing Organization Address City/[facility]/ZIP Co de Phone Number [facility] 1 documented in this encounter Visit Diagnoses Diagnosis Low serum cortisol level- Primary Arthralgia of both knees Lymphedema Other noninfectious lymphedema documented in this encounter Additional Health Concerns Assessment Noted Time PHQ-9 Depression Total Score: 6 06/22/20 25 2:22 PM EDT documented as of this encounter Care Teams Internist Medical Doctor Md Relationship Specialty Start Date End Date Lei Thacker Health Navigator 09/17/24 documented as of this encounter
--- OUTSIDE RECORDS SUMMARY | 2025-08-10 16:29 | XMS_ITS | Encounter Summary ---
Author Organization [employer] Address 75 [facility] 7 [place] [address] Care Team Providers Care Sewage Reticulation Drafting Officer Name Role Phone Lei Thacker Unavailable Unavailable Sharmila Azar DO Primary Care Provider [phone] Inactive/Transferred Primary Care Provider Unava ilable Reason for Visit * Reason Onset Date Comments Med Refill 11/27/2024 Encounter Details Date Type Department Care Team (Late st Contact Info) Description 11/27/2024 Refill [place] [facility] 73 [place] [address] Sharmila Azar DO 73 [place], [place] [id number] Anxiety; PTSD (post-traumatic stress disorder) Social History [...] t he electric, gas, oil or water [employer] threatened to shut off services in your [...] Miscellaneous Notes * Telephone Encounter - Kameron oLmbardi - 11/28/2024 10:33 AM EST RX was [...] documented as of this encounter Care Teams Sewage Reticulation Drafting Officer Relationship Specialty Start Date End Date Sharmila Azar DO [address] [place] [address] PCP - General Family Medicine 11/02/24 06/17/25 Inactive/Transferred PCP - General 06/18/25 06/18/25 Lei Thacker Health Navigator 09/17/24 documented as of this encounter
--- OUTSIDE RECORDS SUMMARY | 2025-08-10 16:29 | XMS_ITS | Encounter Summary ---
Author Organization [employer] Address [address] [place] [address] 7 [place] [address] Care Team Providers Care Quality Assurance Monitor Name Role Phone Francheska Tucker MADELEINE Primary Care Provider [phone] Lei Thacker Unavailable Unavailable Sharmila Azar DO Primary Care Provider [phone] Inactive/Transferred Primary Care Provider Unava ilable Reason for Visit * Reason Comments Med Change Request Encounter Details Date Type Department Care Team (Late st Contact Info) Description 05/12/2024 Oneyda Stewart [facility] 73 [place] [address] Shilpa Miller, MARIA C 73 [place] [address] Psychophysiological insomnia Social History Tobacco Use Types [...] documented as of this encounter Care Teams Quality Assurance Monitor Relationship Specialty Start Date End Date Francheska Tucker FNP 73 [facility] [place] [address] PCP - General Family Medicine 10/25/23 11/01/24 Sharmila Azar DO 73 [place] [address] PCP - General Family Medicine 11/02/24 06/17/25 Inactive/Transferred PCP - General 06/18/25 06/18/25 Lei Thacker Health Navigator 09/17/24 documented as of this encounter
--- OUTSIDE RECORDS SUMMARY | 2025-08-10 16:29 | XMS_ITS | Encounter Summary ---
Author Organization [employer] Address [address] [facility] [address] 7t [place] [address] Care Team Providers Care Clearance Rep Name Role Phone Lei Thacker Unavailable Unavailable Sharmila Azar Primary Care Provider [phone] Inactive/Transferred Primary Care Provider Unava ilable Reason for Visit * Reason Onset Date Comments Med Refill 02/09/2025 Encounter Details Date Type Department Care Team (Late st Contact Info) Description 02/09/2025 Refill Pat [facility] 70 [place] [address] Francheska Tucker FNP [address] [place] [address] Type 2 diabetes mellitus with diabetic polyneuropathy [...] documented as of this encounter Care Teams Clearance Rep Relationship Specialty Start Date End Date Sharmila Azar DO 73 [place] [address] PCP - General Family Medicine 11/02/24 06/17/25 Inactive/Transferred PCP - General 06/18/25 06/18/25 Lei Thacker Health Navigator 09/17/24 documented as of this encounter
--- OUTSIDE RECORDS SUMMARY | 2025-08-10 16:29 | XMS_ITS | Encounter Summary ---
Author Organization [employer] Address [address] [place] [address] 7t [place] [address] Care Team Providers Care Supervisor Opening And Picking Name Role Phone Francheska Tucker MADELEINE Primary Care Provider [phone] Lei Thacker Unavailable Unavailable Sharmila Azar DO Primary Care Provider [phone] Inactive/Transferred Primary Care Provider Unava ilable Reason for Visit * Reason Comments Med Refill Encounter Details Date Type Department Care Team (Late st Contact Info) Description 03/21/2024 Refill Pat [facility] [address] [place] [address] Shilpa Miller, COMMUNITY DEVELOPMENT PLANNER [address] [place] [address] Type 2 diabetes mellitus with diabetic polyneuropathy, with long-term current use of insulin ([facility]) Social History Tobacco Use Types [...] Questionnaire -2 Score 6 03/24/2024 7:38 AM EDShilpa [place] CNP * If you checked off any [...] De Leon CNP Patient Health Questionnaire-9 Score 03/24/2024 7:38 AM Shilpa De Leon CNP [...] documented as of this encounter Care Teams Supervisor Opening And Picking Relationship Specialty Start Date End Date Francheska Tucker FNP 73 [facility] [place] [address] PCP - General Family Medicine 10/25/23 11/01/24 Sharmila Azar DO 73 [place] [address] PCP - General Family Medicine 11/02/24 06/17/25 Inactive/Transferred PCP - General 06/18/25 06/18/25 Lei Thacker Health Navigator 09/17/24 documented as of this encounter
--- OUTSIDE RECORDS SUMMARY | 2025-08-10 16:29 | XMS_ITS | Encounter Summary ---
Author Organization [employer] Address [address] [facility] [address] 7t [place] [address] Care Team Providers Care Solar Installation Supervisor Name Role Phone Francheska Tucker MADELEINE Primary Care Provider [phone] Lei Thacker Unavailable Unavailable Sharmila Azar DO Primary Care Provider [phone] Inactive/Transferred Primary Care Provider Unava ilable Encounter Details Date Type Department Care Team (Late st Contact Info) Description 12/19/2023 Orders Only [facility] MEDICAL 58 [place], [place] [phone] Provider, MD Sharad Social History Tobacco Use [...] Diabetes Eye Exam (03/14/2023 5:12 PM EDT) Historical Provider HEALTH MAINTENANCE Final Result documented in this encounter Visit Diagnoses Not on filedocumented in this encounter Care Teams Solar Installation Supervisor Relationship Specialty Start Date End Date Francheska Tucker FNP 73 [place] [address] PCP - General Family Medicine 10/25/23 11/01/24 Sharmila Azar DO 73 [place] [address] PCP - General Family Medicine 11/02/24 06/17/25 Inactive/Transferred PCP - General 06/18/25 06/18/25 Lei Thacker Health Navigator 09/17/24 documented as of this encounter
--- OUTSIDE RECORDS SUMMARY | 2025-08-10 16:29 | XMS_ITS | Encounter Summary ---
Author Organization [employer] Address [address] [facility] 7t [place] [address] Care Team Providers Care Home Health Care Provider Name Role Phone Francheska Tucker Primary Care Provider [phone] Lei Thacker Unavailable Unavailable Sharmila Azar DO Primary Care Provider Inactive/Transferred Primary Care Provider Unava ilable Reason for Visit * Reason Comments Med Change Request Encounter Details Date Type Department Care Team (Late st Contact Info) Description 05/26/2024 Oneyda Stewart [facility] [address] [place] [address] Francheska Tucker FNP [address] [place] [address] Type 2 diabetes mellitus with diabetic polyneuropathy, with long-term current use of insulin ([facility]) Social History Tobacco Use [...] as of this encounter Care Teams Home Health Care Provider Relationship Specialty Start Date End Date Francheska Tucker FNP 73 [place] [address] PCP - General Family Medicine 10/25/23 11/01/24 Sharmila Azar DO 73 [place] [address] PCP - General Family Medicine 11/02/24 06/17/25 Inactive/Transferred PCP - General 06/18/25 06/18/25 Lei Thacker Health Navigator 09/17/24 documented as of this encounter
--- OUTSIDE RECORDS SUMMARY | 2025-08-10 16:29 | XMS_ITS | Encounter Summary ---
Author Organization [employer] Address 75 [facility] 7 [place] [address] Care Team Providers Care Fountain Worker Name Role Phone Lei Thacker Unavailable Unavailable Sharmila Azar DO Primary Care Provider [phone] Inactive/Transferred Primary Care Provider Unava ilable Reason for Visit * Reason Onset Date Comments Med Refill 02/18/2025 Encounter Details Date Type Department Care Team (Late st Contact Info) Description 02/18/2025 Refill [place] [facility] [address] [place] [address] Sharmila Azar DO 73 [place], [place] [phone] Anxiety; PTSD (post-traumatic stress disorder) Social History [...] t he electric, gas, oil or water [employer] threatened to shut off services in your [...] documented as of this encounter Care Teams Fountain Worker Relationship Specialty Start Date End Date Sharmila Azar DO 73 [place] [address] PCP - General Family Medicine 11/02/24 06/17/25 Inactive/Transferred PCP - General 06/18/25 06/18/25 Lei Thacker Health Navigator 09/17/24 documented as of this encounter
--- OUTSIDE RECORDS SUMMARY | 2025-08-10 16:29 | XMS_ITS | Encounter Summary ---
Author Organization [employer] Address [address] [place] [address] 7 [place] [address] Care Team Providers Care Cryogenics Engineer Name Role Phone Shilpa Miller CNP Primary Care Provider Francheska Tucker Primary Care Provider [phone] Lei Thacker Unavailable Unavailable Sharmila Azar DO Primary Care Provider [phone] Inactive/Transferred Primary Care Provider Unava ilable Reason for Visit * Reason Comments Med Refill Encounter Details Date Type Department Care Team (Late st Contact Info) Description 07/25/2023 Refill Pat [facility] [address] [place] [address] Shilpa Miller CNP [address] [place] [address] Hypothyroidism, unspecified Social History Tobacco Use Types [...] - 07/25/2023 3:10 PM EDT Sent on 07/16/23 duplicate documented in this encounter Plan of Treatment Not on file documented as of this encounter Visit Diagnoses Diagnosis Hypothyroidism, unspecified documented in this encounter Care Teams Cryogenics Engineer Relationship Specialty Start Date End Date Shilpa Miller CNP [address] [place] [address] PCP - General Family Medicine 10/16/22 10/24/23 Francheska Tucker FNP [address] [place] [address] PCP - General Family Medicine 10/25/23 11/01/24 Sharmila Azar DO [address] [place] [address] PCP - General Family Medicine 11/02/24 06/17/25 Inactive/Transferred PCP - General 06/18/25 06/18/25 Lei Thacker Health Navigator 09/17/24 documented as of this encounter
--- OUTSIDE RECORDS SUMMARY | 2025-08-10 16:29 | XMS_ITS | Encounter Summary ---
Author Organization [employer] Address 75 [facility] 7t [place] [address] Care Team Providers Care Fish Boning Machine Feeder Name Role Phone Francheska Tucker Primary Care Provider [phone] Lei Thacker Unavailable Unavailable Sharmila Azar DO Primary Care Provider [phone] Inactive/Transferred Primary Care Provider Unava ilable Reason for Visit * Reason Comments Med Change Request Encounter Details Date Type Department Care Team (Late st Contact Info) Description 2024 Oneyda Stewart [facility] [address] [place] [address] Francheska Tucker FNP [address] [place] [address] Type 2 diabetes mellitus with diabetic polyneuropathy, with long-term current use of insulin ([facility]) Social History Tobacco Use Types Packs/Day Years [...] documented as of this encounter Care Teams Fish Boning Machine Feeder Relationship Specialty Start Date End Date Francheska Tucker FNP [address] [place] [address] PCP - General Family Medicine 10/25/23 11/01/24 Sharmila Azar DO 73 [place] [address] PCP - General Family Medicine 11/02/24 06/17/25 Inactive/Transferred PCP - General 06/18/25 06/18/25 Lei Thacker Health Navigator 09/17/24 documented as of this encounter
--- OUTSIDE RECORDS SUMMARY | 2025-08-10 16:29 | XMS_ITS | Encounter Summary ---
Author Organization [employer] Address 75 [facility] 7 [place] [address] Care Team Providers Care Echocardiograph Technician Name Role Phone Lei Thacker Unavailable Unavailable Sharmila Azar DO Primary Care Provider [phone] Inactive/Transferred Primary Care Provider Unava ilable Reason for Visit * Reason Onset Date Comments Med Refill 12/11/2024 Encounter Details Date Type Department Care Team (Late st Contact Info) Description 12/11/2024 Refill [place] [facility] [address] [place] [address] Sharmila Azar DO 73 [place], [place] [phone] Anxiety; PTSD (post-traumatic stress disorder) Social History [...] t he electric, gas, oil or water [employer] threatened to shut off services in your [...] documented as of this encounter Care Teams Echocardiograph Technician Relationship Specialty Start Date End Date Sharmila Azar DO [address] [place] [address] PCP - General Family Medicine 11/02/24 06/17/25 Inactive/Transferred PCP - General 06/18/25 06/18/25 Lei Thacker Health Navigator 09/17/24 documented as of this encounter
--- OUTSIDE RECORDS SUMMARY | 2025-08-10 16:29 | XMS_ITS | Encounter Summary ---
Author Organization [employer] Address [address] [facility] [address] [address] 7t [place] [address] Care Team Providers Care Air Crew Member Name Role Phone Lei Thacker Unavailable Unavailable DoeSharmila Primary Care Provider [phone] Inactive/Transferred Primary Care Provider Unava ilable Encounter Details Date Type Department Care Team (Late st Contact Info) Description 11/21/2024 Orders Only [facility] MEDICAL [address] [place] [address] Provider, MD Sharad Social History Tobacco Use [...] documented as of this encounter Care Teams Air Crew Member Relationship Specialty Start Date End Date Sharmila Azar DO 73 [place] [address] PCP - General Family Medicine 11/02/24 06/17/25 Inactive/Transferred PCP - General 06/18/25 06/18/25 Lei Thacker Health Navigator 09/17/24 documented as of this encounter
--- OUTSIDE RECORDS SUMMARY | 2025-08-10 16:29 | XMS_ITS | Encounter Summary ---
Author Organization [employer] Address [address] [facility] [address] 7t [place] [address] Care Team Providers Care Aged Or Disabled Carer Name Role Phone Lei Thacker Unavailable Unavailable Encounter Details Date Type Department Care Team (Late st Contact Info) Description 07/17/2025 Orders Only Pat [facility] [address] [place], [place] [phone] Sharmila Azar DO 73 [place] [address] Arthralgia of both knees (Primary Dx); Lymphedema; [...] Expected: 07/23/2025 (Approximate), Expires: 07/23/2026 Blood culture [id number] Microbiology Routine Abnormal CBC ESR raised Expected: 07/23/2025, Expires: 07/23/2026 documented as of this encounter Procedures Procedure Name Priority Date/Time Associated Diagnosis Comments CBC WITH AUTO DIFFERENTIAL Routine 07/20/2025 9:20 AM EDT Arthralgia of both knees Lymphedema COMPREHENSIVE METABOLIC PANEL Routine 07/20/2025 9:20 AM EDT Arthralgia of both knees Lymphedema documented in this encounter Results * (ABNORMAL) Comprehensive Metabolic Panel [[id number]] (07/20/2025 9:20 AM EDT) Glucose 143(H) 70 [...] Agency Comment Performed at: 01 - [facility] [address] [id number] Health Plan Manager: Megan Curry MD, Phone: [phone] Sharmila Azar DO LAB BLOOD ORDERABLES Final [...] Agency Comment Performed at: 01 - [facility] [address] [id number] Health Plan Manager: Megan Curry MD, Phone: [phone] us Sharmila Azar DO LAB BLOOD ORDERABLES [...] documented as of this encounter Care Teams Aged Or Disabled Carer Relationship Specialty Start Date End Date Lei Thacker Health Navigator 09/17/24 documented as of this encounter
--- OUTSIDE RECORDS SUMMARY | 2025-08-10 16:29 | XMS_ITS | Encounter Summary ---
Author Organization [employer] Address [address] [facility] [address] 7t [place] [address] Care Team Providers Care Glazier Helper Name Role Phone Lei Thacker Unavailable Unavailable Encounter Details Date Type Department Care Team (Latest Contact Info) Description 07/21/2025 Results Follow-Up [facility] MEDICAL 73 [place], [place] [phone] Sharmila Azar DO 73 [place] [address] CBC auto differential, Comprehensive Metabolic Panel [[id number]] Social History Tobacco Use Types Packs/Day Years [...] r Schedule B Type Natriuretic Peptide (BNP) 910353 Lab Routine Low serum albumin Lymphedema Mild [...] documented as of this encounter Care Teams Glazier Helper Relationship Specialty Start Date End Date Lei Thacker Health Navigator 09/17/24 documented as of this encounter
--- OUTSIDE RECORDS SUMMARY | 2025-08-10 16:29 | XMS_ITS | Encounter Summary ---
Author Organization [employer] Address 75 [facility] 7 [place] [address] Care Team Providers Care Patient Clerical Assistant Name Role Phone Lei Thacker Unavailable Unavailable Sharmila Azar DO Primary Care Provider Inactive/Transferred Primary Care Provider Unava ilable Reason for Visit * Reason Comments Med Change Request Encounter Details Date Type Department Care Team (Late st Contact Info) Description 03/06/2025 Chasill Pat [facility] [address] [place] [address] Sharmila Azar DO 73 [place], [place] [phone] Type 2 diabetes mellitus with diabetic polyneuropathy, with long-term current use of insulin ([facility]) Social History Tobacco Use Types Packs/Day Years [...] documented as of this encounter Care Teams Patient Clerical Assistant Relationship Specialty Start Date End Date Sharmila Azar DO [address] [place] [address] PCP - General Family Medicine 11/02/24 06/17/25 Inactive/Transferred PCP - General 06/18/25 06/18/25 Lei Thacker Health Navigator 09/17/24 documented as of this encounter
--- OUTSIDE RECORDS SUMMARY | 2025-08-10 16:29 | XMS_ITS | Encounter Summary ---
Author Organization [employer] Address 75 [facility] 7t [place] [address] Care Team Providers Care School Bus Aide Name Role Phone Francheska Tucker Primary Care Provider [phone] Lei Thacker Unavailable Unavailable Sharmila Azar DO Primary Care Provider [phone] Inactive/Transferred Primary Care Provider Unava ilable Encounter Details Date Type Department Care Team (Late st Contact Info) Description 07/04/2024 Orders Only [place] [facility] 73 [place], [place] [phone] Francheska Tucker FNP 73 [place] [address] Social History Tobacco Use Types Packs/Day Years [...] the past 12 months, has t he [employer], gas, oil or water [employer] threatened to shut off services in your [...] documented as of this encounter Care Teams School Bus Aide Relationship Specialty Start Date End Date Francheska Tucker FNP [address] [place] [address] PCP - General Family Medicine 10/25/23 11/01/24 Sharmila Azar DO [address] [place] [address] [place] [address] PCP - General Family Medicine 11/02/24 06/17/25 Inactive/Transferred PCP - General 06/18/25 06/18/25 Lei Thacker Health Navigator 09/17/24 documented as of this encounter
--- OUTSIDE RECORDS SUMMARY | 2025-08-10 16:29 | XMS_ITS | Clinical Summary ---
Author Organization [employer] Address 75 [facility] 7 [place] [address] Care Team Providers Care Flight Mechanic Name Role Phone Lei Thacker Unavailable Unavailable Allergies Active Allergy Reactions Criticality Noted Date Comments [place] Oil Hives,Itching,Rash,S hortness of breath,Swelling,Whee zing High 11/05/1980 Other Reaction(s): Anaphylaxis Amoxicillin 10/11/2022 Other reaction(s): Unknown Aspirin 10/11/2022 Other reaction(s): sensitivity Azithromycin Rash Low 10/11/2022 Black [place] Flavoring Agent (Non-Screening) Hives,Itching,Shortn ess of breath,Swelling,Whee [...] A7046 Humidifier Chamber A7035 Headgear A7027,... 11/25/19 22 Active Respiratory Therapy Supplies (Nebulizer/Tubing/ Mouthpiece) kit nebulizer tubing, See Instructions, # 1 box, Refills 0, Tot. Refills 0, Maintenance, nebulizer tubing, 10/02/14 13:46:53, dx asthma, Compound 10/02/20 14 Active albuterol (2.5 MG/3ML) 0.083% nebulizer solution [...] polyneuropathy, with long-term current use of insulin ([facility]) Use as directed to test blood sugars 3 times a day 100 strip 12 12/09/19 25 Active levalbuterol (Xopenex) 45 MCG/ACT inhalerIndications :Mild intermittent asthma without complication INHALE 2 PUFFS EVERY 4 HOURS IF NEEDED FOR WHEEZING. 15 g 3 12/25/19 25 Active nystatin (Mycostatin) 359209 UNIT/GM powderIndications: Soo infection of flexural skin Apply topically 2 times daily. 60 g 1 01/01/20 25 026 Active losartan (Cozaar) 100 MG tabletIndications: Essential (primary) hypertension TAKE 1 TABLET (100 MG) BY MOUTH ONCE PER DAY. 90 tablet 3 02/03/20 25 Active Basaglar KwikPen 100 UNIT/ML penIndications:Typ e 2 diabetes mellitus with diabetic polyneuropathy, with long-term current use of insulin ([facility]) Inject 82 Units under the skin at [...] 03/09/20 25 Active Lancets (OneTouch Delica Plus [id number]) miscIndications:Ty pe 2 diabetes mellitus with diabetic polyneuropathy, with long-term current use of insulin ([facility]) CHECK GLUCOSE 3 TIMES A DAY 100 each 04/08/20 25 Active Alcohol Swabs (Alcohol Prep) [...] pe 2 diabetes mellitus with diabetic polyneuropathy ([facility]) INJECT 1 EACH UNDER THE SKIN 4 TIMES DAILY. 100 each 3 05/18/20 25 Active insulin aspart FlexPen (NovoLOG) 100 UNIT/ML penIndications:Typ e 2 diabetes mellitus with diabetic polyneuropathy, with long-term current use of insulin ([facility]) Inject 8-10 Units under the skin [...] depression, PTSD. Engaged with Dom Carter at [facility] in [place] for medication. Sees Forrest at [facility] for therapy weekly on phone. Feeling symptoms are worsening. Starting to not want to leave the house and losing ghanshyam in doing things. Discussed options. Encouraged to discuss with therapist and prescriber. If feeling unheard by prescriber, encouraged to advocate for a different prescriber, but Ms. Dougherty is more comfortable getting a second opinion through [facility] provider at this time. Will refer to [...] ARB and STATIN. EYE: Dr. Segura in [place] DENTIST: Has false teeth. FBS 60-100. Will [...] pain. Will refer to weight management. Completed [employer] paperwork for Ismael. Assessment & Plan (05/25/2023 [...] Department Care Team Description 07/22/2025 Results Follow-Up [address] [address] Sharmila Azar, TSH with Reflex to Free T4 [[id number]] 07/21/2025 Results Follow-Up [address] [address] Doe, Sharmila, DO CBC auto differential, Comprehensive Metabolic Panel [[id number]] 07/18/2025 Refill [facility] MED[facility] [address] [place] [address] Francheska uTcker FNP 07/17/2025 Orders Only [address] [address] Sharmila Azar DO Arthralgia of both knees (Primary Dx); Lymphedema; Abnormal CBC; ESR raised 07/17/2025 Results Follow-Up [address] [address] Sharmila Azar DO Cortisol, Total, Magnesium 385223, Sed Rate by Modified Westergren, Additional followed-up results: 4 07/10/[address] [address] PcpPat Unassigned [employer] (Phone Number # / ) 07/08/[address] [address] Nancy Bridges LPN 07/02/[address] [address] PcpPatssnilay holder 06/22/2025 1:45 PM EDT Office Visit [address] [address] Sharmila Azar DO Primary osteoarthritis of both knees (Primary Dx); Nail dystrophy; Long toenail; Type 2 diabetes mellitus with diabetic polyneuropathy, with long-term current use of insulin (CMS/HCC); Muscle weakness of lower extremity; Diabetic polyneuropathy associated with type 2 diabetes mellitus (CMS/HCC); Acquired lymphedema; Transportation insecurity 06/20/2025 Travel 06/16/[address] [address] Que Pope CMA Pt-1 ride to [employer] 06/14/2025 Travel 05/29/2025 [facility] [address] [place] [address] Sharmila Azar DO Type 2 diabetes mellitus with diabetic polyneuropathy, with long-term current use of insulin ([facility]) 05/27/2025 Telephone [facility] [address] [place] [address] Sharmila Azar, DO 05/23/[address] [address] Doe Sharmila, DO PT-1 05/19/2025 Telephone [facility] [address] [place] [address] Doe Sharmila DO PT-1 05/17/[facility] [address] [place] [address] Doe DO Sharmila Type 2 diabetes mellitus with diabetic polyneuropathy ([facility]) from Last 3 Months Immunizations Immunization Administration [...] Mother vladimir hawk Hypertension Mother vladimir hawk [place] Mother vladimir hawk after [place]. Stroke Mother vladimir hawk Thyroid disease Mother [...] with long-term current use of insulin (CMS/HCC) DIABETES EYE EXAM Routine 05/28/2024 5:27 PM [...] CBC auto differential (07/20/2025 9:20 AM EDT) Pathologist [facility] White Blood Cell Count 12.4(H) 3.4 - [...] Resulting Agency Comment Performed at: - [facility] [address] [place], [place] [id number] Tannery Gummer: Megan Curry MD, Phone: [phone] [facility] BLOOD ORDERABLES Final Res ult Performing Organization Address City/[facility]/ZIP Co de Phone Number [facility] 1 * ACTH, Plasma (07/20/2025 9:20 AM EDT) Pathologist [facility] ACTH, Plasma 23.4 7.2 - 63.3 pg/mL [facility] 1 Comment:ACTH reference inter oliver for samples collected between 7 and 10 AM. Blood Venous blood specimen / Unknown 07/20/2025 9:20 AM EDT 07/20/2025 Narrative Resulting Agency Comment Performed at: - [facility] [address] [place], [place] [id number] Tannery Gummer: Megan Curry MD, Phone: [phone] [facility] BLOOD ORDERABLES Final Res ult [facility] 1 * (ABNORMAL) Comprehensive Metabolic Panel [[id number]] (07/20/2025 9:20 AM EDT) Pathologist [facility] Glucose 143(H) 70 - 99 mg/dL [facility] [...] Narrative Resulting Agency Comment Performed at: - [facility] [id number] Tannery Gummer: Megan Curry MD, Phone: [phone] [facility] BLOOD ORDERABLES Final Res ult Performing Organization Address [facility]/ZIP Co de Phone Number [facility] 1 * Rheumatoid Arthritis (RA) Profile [[id number]] (07/20/2025 9:19 AM EDT) Rheumatoid Factor (RF) <10.0 <14.0 IU/mL [facility] 1 Anti-CCP Ab, IgG/IgA 3 0 - 19 units [facility] 1 Comment: Negative <20 Weak positive 20 - 39 Moderate positive 40 - 59 Strong positive >59 Blood Venous blood specimen / Unknown 07/20/2025 9:19 AM EDT 07/20/2025 Narrative Resulting Agency Comment Performed at: - [facility] [id number] Tannery Gummer: Megan Curry MD, Phone: [phone] [facility] LAB BLOOD ORDERABLES Final Res ult Performing Organization Address [facility]/ZIP Co de Phone Number [facility] 1 [...] Narrative Resulting Agency Comment Performed at: - [facility] [id number] Tannery Gummer: Megan Curry MD, Phone: [phone] us Sharmila Azar DO LAB BLOOD ORDERABLES Final Res ult Performing Organization Address City/[facility]/ZIP Co de Phone Number [facility] * (ABNORMAL) TSH with Reflex to Free T4 [[id number]] (07/20/2025 9:18 AM EDT) TSH 0.293(L) 0.450 - 4.500 uIU/mL [facility] 1 Blood Venous blood specimen / Unknown 07/20/2025 9:18 AM EDT 07/20/2025 Narrative Resulting Agency Comment Performed at: [facility] [id number] Tannery Gummer: Megan Curry MD, Phone: [phone] Francheska DEL RIOP LAB BLOOD ORDERABLES Final Resul t Performing Organization Address City/[facility]/ZIP Co de Phone Number [facility] 1 * (ABNORMAL) Sed Rate by Modified Rogelioergren (07/16/2025 9:55 AM EDT) Sed Rate By Modified Westergren 84(H) 0 - 40 mm/hr [facility] 1 Blood Venous blood specimen / Unknown 07/16/2025 9:55 AM EDT 07/16/2025 Narrative Resulting Agency Comment Performed at: [facility] [id number] Tannery Gummer: Megan Curry MD, Phone: [phone] [facility] LAB BLOOD ORDERABLES Final Res ult Performing Organization Address [facility] de Phone Number [facility] * (ABNORMAL) C-reactive Protein (07/16/2025 9:55 AM EDT) Pathologist [facility] C-Reactive Protein 23(H) 0 - 10 mg/L [facility] 1 Blood Venous blood specimen / Unknown 07/16/2025 9:55 AM EDT 07/16/2025 Narrative Resulting Agency Comment Performed at: 01 - [facility] [id number] Tannery Gummer: Megan Curry MD, Phone: [phone] [facility] LAB BLOOD ORDERABLES Final Res ult Performing Organization Address [facility] de Phone Number [facility] 1 * Magnesium [id number] (07/16/2025 9:55 AM EDT) Pathologist [facility] Magnesium 1.9 1.6 - 2.3 mg/dL [facility] 1 Blood Venous blood specimen / Unknown 07/16/2025 9:55 AM EDT 07/16/2025 Narrative Resulting Agency Comment Performed at: 01 - [facility] [id number] Tannery Gummer: Megan Curry MD, Phone: [phone] [facility] LAB BLOOD ORDERABLES Final Res ult Performing Organization Address [facility] de Phone Number [facility] 1 * (ABNORMAL) Cortisol, Total (07/16/2025 9:55 AM EDT) Pathologist [facility] Cortisol, Total 0.4(L) 6.2 - 19.4 ug/dL [facility] 1 Comment: Please Note: The reference interval and flagging for this test is for an AM collection. If this is a PM collection please use: Cortisol PM: 2.3-11.9 Blood Venous blood specimen / Unknown 07/16/2025 9:55 AM EDT 07/16/2025 Narrative Resulting Agency Comment Performed at: 01 - [facility] [address] [id number] Tannery Gummer: Megan Curry MD, Phone: [phone] Sharmila Azar LAB BLOOD ORDERABLES Final Res [...] breast cancer. No known palpable abnormalities. COMPARISON: [facility] dating back to 01/14/2013. TECHNIQUE: Full-field [...] (Negative) Lay letter mailed to patient WSN: [id number] Ordering Physician: Sharmila Azar Dictated By: Kayleigh Hall MD, I Dictated Date/Time: 04/27/25 4:25 pm Reviewed By: Kayleigh Hall MD, I Signed By: Kayleigh Hall MD, I Signed Date/Time: 04/27/25 4:25 pm Transcribed By: CSB Captain Waiter Date/Time: 04/27/25 4:22 pm Birads: Procedure Note Donotuseinterpreter, Image - 04/27/2025 PROCEDURE: MM Digital Mammo Screening INDICATION: Screening for breast cancer. No known palpableabnormalities. COMPARISON: [facility] dating back to 01/14/2013. TECHNIQUE: Full-field [...] (Negative) Lay letter mailed to patient WSN: [id number] Ordering Physician: Sharmila Azar Dictated By: Kayleigh Hall MD, I Dictated Date/Time: 04/27/25 4:25 pm Reviewed By: Kayleigh Hall MD, I Signed By: Kayleigh Hall MD, I Signed Date/Time: 04/27/25 4:25 pm Transcribed By: CSB Captain Waiter Date/Time: 04/27/25 4:22 pm Birads: Result [facility] Sharmila Azar DO IMG BI PROCEDURES Final [...] 6:35 AM EST Performed at: 01 - [facility] [id number] Tannery Gummer: Megan Curry MD, Phone: [phone] Sharmila Azar DO LAB URINE ORDERABLES Final Res ult [facility] 1 * Hm Diabetes Eye Exam (05/28/2024 5:27 PM EDT) Historical Provider HEALTH MAINTENANCE Final Result * Lipid panel (12/11/2023 12:51 PM EST) Cholesterol, Total 142 (<200) MG/DL [facility] Triglyceride (mg/dL) in Serum/Plasma 89 (<150) MG/DL [facility] HDL Cholesterol 67 (>39) MG/DL [facility] LDL Cholesterol, Calculated 57 (0-130) MG/DL [facility] Non HDL Chol. (LDL+VLDL) 75 (<160) MG/DL [facility] Comment: Testing performed or reported by [facility], a Service of [facility], [address] [place] [id number] Rojas Garza MD, Roof Cement And Paint Maker Helper [facility]# [id number] Blood Venous blood specimen / Unknown 12/11/2023 12:51 PM EST 12/11/2023 12:52 PM EST Francheska SALVADOR LAB BLOOD ORDERABLES Final Resul t Performing Organization Address [facility]/ZIP Co de Phone Number [address] [address] * Pap Smear (07/17/2023 12:00 AM EDT) Swab Historical Provider LAB CYTOLOGY ORDERABLES F inal Result Performing Organization Address City/[facility]/ZIP Co de Phone Number [address] [address] * Hm Colonoscopy (12/30/2020) Colonoscopy repeat in 10 yeasr Historical Provider HEALTH MAINTENANCE Final Result * -Hepatitis C Antibody Test (12/14/2020 7:58 AM EST) ANTI-HEPATITIS C NEGATIVE (NEG) [facility] Comment: Reference range: Negative This test was performed on the [employer] Bus Driver/Mechanic immunoassay system. 12/14/2020 7:58 AM EST us Shilpa Chaloux PHOTOGRAPHY PROFESSOR HISTORICAL/NON ORDERABLE LABS Final Result Performing Organization Address [facility] de Phone Number [facility] [address] * -HIV AB-AG 4TH GENERATION (12/14/2020 7:58 AM EST) RESULT 4TH GEN HIV AB-AG NEGATIVE (NEG) [facility] Comment: Negative for antibodies to HIV 1 and HIV 2 and P24 antigen. Reference range: Negative Additional note: Written patient authorization is required for each separate release of this test result. This test was performed on the [employer]chanic immunoassay system. 12/14/2020 7:58 AM EST us Shilpa Chaloux PHOTOGRAPHY PROFESSOR LAB BLOOD ORDERABLES Final Re sult Performing Organization Address [facility] Phone Number [facility] [address] from Last 3 Months or Most Recently Relevant to Health Maintenance Insurance [place] [address] [place] [id number] [facility] Advance Directives Documents on File Type Date Recorded Patient Data Keyer Expl anation HealthCare Proxy 10/24/2023 12:48 PM HCP Care Teams Flight Mechanic Relationship Specialty Start Date End Date Lei Thacker Health Navigator 09/17/24
--- OUTSIDE RECORDS SUMMARY | 2025-08-10 16:29 | XMS_ITS | Encounter Summary ---
Author Organization [employer] Address 75 [facility] 7t [place] [address] Care Team Providers Care Underground Drill Operator Name Role Phone Lei Thacker Unavailable Unavailable Sharmila Azar DO Primary Care Provider [phone] Inactive/Transferred Primary Care Provider Unava ilable Reason for Visit * Reason Comments Med Change Request Encounter Details Date Type Department Care Team (Late st Contact Info) Description 12/25/2024 Refill Pat [facility] [address] [place] [address] Sharmila Azar DO [address] [place], [place] [phone] Mild intermittent asthma without complication Social History [...] the past 12 months, has t he [employer], gas, oil or water [employer] threatened to shut off services in your [...] documented as of this encounter Care Teams Underground Drill Operator Relationship Specialty Start Date End Date Sharmila Azar DO [address] [place] [address] PCP - General Family Medicine 11/02/24 06/17/25 Inactive/Transferred PCP - General 06/18/25 06/18/25 Lei Thacker Health Navigator 09/17/24 documented as of this encounter
--- OUTSIDE RECORDS SUMMARY | 2025-08-10 16:29 | XMS_ITS | Encounter Summary ---
Author Organization [employer] Address [address] [place] [address] 7t [place] [address] Care Team Providers Care Joy Operator Helper Name Role Phone Francheska Tucker MADELEINE Primary Care Provider Lei Thacker Unavailable Unavailable Sharmila Azar DO Primary Care Provider [phone] Inactive/Transferred Primary Care Provider Unava ilable Reason for Visit * Reason Onset Date Comments Med Refill 05/21/2024 Encounter Details Date Type Department Care Team (Late st Contact Info) Description 05/21/2024 Refill Pat [facility] [address] [place] [address] Shilpa Miller, SODDER [address] [place] [address] Type 2 diabetes mellitus with diabetic polyneuropathy, with long-term current use of insulin ([facility]) Social History Tobacco Use Types [...] encounter Miscellaneous Notes * Telephone Encounter - Rosie Archer, [facility] - 05/23/2024 4:23 PM EDT Left another VM I am going to send a [employer] message. documented in this encounter Plan of Treatment Not on file documented as of this encounter Visit Diagnoses Diagnosis Type 2 diabetes mellitus with diabetic polyneuropathy, with long-term current use of insulin (HCC) documented in this encounter Additional Health Concerns Assessment Noted Time PHQ-9 Depression Total Score: 20 024 7:38 AM EDT documented as of this encounter Care Teams Joy Operator Helper Relationship Specialty Start Date End Date Francheska Tucker FNP [address] [place] [address] PCP - General Family Medicine 10/25/23 11/01/24 Sharmila Azar DO [address] [place] [address] PCP - General Family Medicine 11/02/24 06/17/25 Inactive/Transferred PCP - General 06/18/25 06/18/25 Lei Thacker Health Navigator 09/17/24 documented as of this encounter
--- OUTSIDE RECORDS SUMMARY | 2025-08-10 16:30 | XMS_ITS | Encounter Summary ---
Author Organization [employer] Address [address] [place] [address] 7[address] [place] [address] Care Team Providers Care Humane Agent Name Role Phone Shilpa Miller CNP Primary Care Provider [phone] Francheska Tucker Primary Care Provider [phone] Lei Thacker Unavailable Unavailable Sharmila Azar DO Primary Care Provider [phone] Inactive/Transferred Primary Care Provider Unava ilable Encounter Details Date Type Department Care Team (Late st Contact Info) Description 11/30/2022 Abstract Pat [facility] MEDICAL [address] [place] [address] Shilpa Miller CNP [address] [place] [address] Social History Tobacco Use Types Packs/Day Years [...] things Not at all 12/01/2022 2:16 PM EST Mark Alison, RMRicardo Feeling down, depressed, or hopeless Not at all 12/01/2022 2:16 PM EST Mark Alison, RMA Patient Health Questionnaire -2 Score 0 12/01/2022 2:16 PM EST Mark Alison, RMA documented as of this encounter Plan of Treatment Not on file documented as of this encounter Visit Diagnoses Not on filedocumented in this encounter Care Teams Humane Agent Relationship Specialty Start Date End Date Shilpa Miller CNP [address] [place] [address] PCP - General Family Medicine 10/16/22 10/24/23 Francheska Tucker FNP 73 [facility] [place] [address] PCP - General Family Medicine 10/25/23 11/01/24 Sharmila Azar DO 73 [facility] [place] [address] PCP - General Family Medicine 11/02/24 06/17/25 Inactive/Transferred PCP - General 06/18/25 06/18/25 Lei Thacker Health Navigator 09/17/24 documented as of this encounter
--- OUTSIDE RECORDS SUMMARY | 2025-08-10 16:30 | XMS_ITS | Encounter Summary ---
Author Organization [employer] Address [address] [place] [address] 7t [place] [address] Care Team Providers Care Compensation Consulting Manager Name Role Phone Shilpa Miller CNP Primary Care Provider [phone] Francheska Tucker Primary Care Provider [phone] Lei Thacker Unavailable Unavailable Sharmila Azar DO Primary Care Provider [phone] Inactive/Transferred Primary Care Provider Unava ilable Encounter Details Date Type Department Care Team (Late st Contact Info) Description 10/26/2022 Abstract Pat [facility] MEDICAL [address] [place] [address] Shilpa Miller CNP [address] [place] [address] Social History Tobacco Use Types Packs/Day Years [...] encounter Results * (ABNORMAL) Hemoglobin A1c (06/28/2022) Hemoglobin A1C 7.6(A) 4.0 - 6.0 % Blood Venous blood specimen / Unknown Historical Provider LAB BLOOD ORDERABLES Layla l Result * Lipid Panel, Standard (06/06/2022) Triglycerides 98 40 - 160 mg/dL Cholesterol 138 0 - 200 mg/dL HDL Cholesterol 60 35 - 70 mg/dL LDL Cholesterol 58 mg/dL Blood Venous blood specimen / Unknown Historical Provider LAB BLOOD ORDERABLES Layla l Result * Hm Mammography (12/25/2021) Mammogram BI RADS: 2 Benign Anatomical Region Laterality Modality Other Result [facility] Historical Provider HEALTH MAINTENANCE Final Result documented in this encounter Visit Diagnoses Not on filedocumented in this encounter Care Teams Compensation Consulting Manager Relationship Specialty Start Date End Date Shilpa Miller CNP 73 [facility] [place] [address] PCP - General Family Medicine 10/16/22 10/24/23 Francheska Tucker FNP [address] [place] [address] PCP - General Family Medicine 10/25/23 11/01/24 Sharmila Azar DO [address] [place] [address] PCP - General Family Medicine 11/02/24 06/17/25 Inactive/Transferred PCP - General 06/18/25 06/18/25 Lei Thacker Health Navigator 09/17/24 documented as of this encounter
--- OUTSIDE RECORDS SUMMARY | 2025-08-10 16:30 | XMS_ITS | Encounter Summary ---
Author Organization [employer] Address [address] [place] [address] 7t [place] [address] Care Team Providers Care Acute Dialysis Registered Nurse Name Role Phone FelizFrancheska garcai MADELEINE Primary Care Provider [phone] Lei Thacker Unavailable Unavailable Sharmila Azar DO Primary Care Provider [phone] Inactive/Transferred Primary Care Provider Unava ilable Reason for Visit * Reason Comments Med Change Request Encounter Details Date Type Department Care Team (Late st Contact Info) Description 01/16/2024 Oneyda Stewart [facility] MED[facility] [address] [place] [address] Amira Singh FNP Social History Tobacco Use [...] RX filled out yesterday and faxed to ward [employer] victoria documented in this encounter Plan of Treatment Not on file documented as of this encounter Visit Diagnoses Not on filedocumented in this encounter Care Teams Acute Dialysis Registered Nurse Relationship Specialty Start Date End Date Francheska Tucker FNP 73 [facility] [address] PCP - General Family Medicine 10/25/23 11/01/24 Sharmila Azar DO 73 [facility] [place] [address] PCP - General Family Medicine 11/02/24 06/17/25 Inactive/Transferred PCP - General 06/18/25 06/18/25 Lei Thacker Health Navigator 09/17/24 documented as of this encounter
--- OUTSIDE RECORDS SUMMARY | 2025-08-10 16:30 | XMS_ITS | Encounter Summary ---
Author Organization [employer] Address [address] [place] [address] 7t [place] [address] Care Team Providers Care Cutting Table Operator First Name Role Phone Shilpa Miller CNP Primary Care Provider [phone] Francheska Tucker Primary Care Provider [phone] Lei Thacker Unavailable Unavailable Sharmlia Azar DO Primary Care Provider [phone] Inactive/Transferred Primary Care Provider Unava ilable Encounter Details Date Type Department Care Team (Late st Contact Info) Description 11/30/2022 Abstract Pat [facility] MED[facility] [address] [place] [address] Shilpa Miller CNP [address] [place] [address] Social History Tobacco Use Types Packs/Day Years [...] on filedocumented in this encounter Care Teams Cutting Table Operator First Relationship Specialty Start Date End Date Shilpa Miller CNP [address] [place] [address] PCP - General Family Medicine 10/16/22 10/24/23 Francheska Tucker FNP 73 [facility] [place] [address] PCP - General Family Medicine 10/25/23 11/01/24 Sharmila Azar DO 73 [place] [address] PCP - General Family Medicine 11/02/24 06/17/25 Inactive/Transferred PCP - General 06/18/25 06/18/25 Lei Thacker Health Navigator 09/17/24 documented as of this encounter
--- OUTSIDE RECORDS SUMMARY | 2025-08-10 16:30 | XMS_ITS | Encounter Summary ---
Author Organization [employer] Address [address] [place] [address] 7 [place] [address] Care Team Providers Care Glass Crusher Name Role Phone Lei Thacker Unavailable Unavailable Sharmila Azar Primary Care Provider [phone] Inactive/Transferred Primary Care Provider Unava ilable Reason for Visit * Reason Onset Date Comments Med Refill 11/05/2024 Encounter Details Date Type Department Care Team (Late st Contact Info) Description 11/05/2024 Refill [place] [facility] MEDICAL [address] [place] [address] Shilpa Miller, MARIA C [address] [place] [address] Type 2 diabetes mellitus with diabetic polyneuropathy ([facility]/HCC) Social History Tobacco Use Types Packs/Day Years [...] documented as of this encounter Care Teams Glass Crusher Relationship Specialty Start Date End Date Sharmila Azar DO [address] [place] [address] PCP - General Family Medicine 11/02/24 06/17/25 Inactive/Transferred PCP - General 06/18/25 06/18/25 Lei Thacker Health Navigator 09/17/24 documented as of this encounter
--- OUTSIDE RECORDS SUMMARY | 2025-08-10 16:30 | XMS_ITS | Encounter Summary ---
Author Organization [employer] Address [address] [place] [address] 7 [place] [address] Care Team Providers Care Transitional Care Manager Name Role Phone Shilpa Miller MARIA C Primary Care Provider [phone] Francheska Tucker Primary Care Provider [phone] Lei Thacker Unavailable Unavailable Sharmila Azar DO Primary Care Provider [phone] Inactive/Transferred Primary Care Provider Unava ilable Encounter Details Date Type Department Care Team (Late st Contact Info) Description 12/01/2022 Orders Only [facility] MEDICAL [address] [place] [address] Avelina Fulton FNP Type 2 diabetes mellitus with diabetic polyneuropathy, with long-term current use of insulin ([facility]) (Primary Dx) Social History Tobacco Use Types [...] -2 Score 0 12/01/2022 2:16 PM EST Alison Flores RMRicardo documented as of this encounter Plan of Treatment Not on file documented as of this encounter Visit Diagnoses Diagnosis Type 2 diabetes mellitus with diabetic polyneuropathy, with long-term current use of insulin (HCC)- Primary documented in this encounter Care Teams Transitional Care Manager Relationship Specialty Start Date End Date Shilpa Miller CNP [address] [place] [address] PCP - General Family Medicine 10/16/22 10/24/23 Francheska Tucker FNP [address] [place] [address] PCP - General Family Medicine 10/25/23 11/01/24 Sharmila Azar DO [address] [place] [address] PCP - General Family Medicine 11/02/24 06/17/25 Inactive/Transferred PCP - General 06/18/25 06/18/25 Lei Thacker Health Navigator 09/17/24 documented as of this encounter
--- OUTSIDE RECORDS SUMMARY | 2025-08-10 16:30 | XMS_ITS | Encounter Summary ---
Author Organization [employer] Address [address] [facility] 7t [place] [address] Care Team Providers Care Database Specialist Name Role Phone Lei Thacker Unavailable Unavailable Sharmila Azar Primary Care Provider [phone] Inactive/Transferred Primary Care Provider Unava ilable Reason for Visit * Reason Comments Med Refill Encounter Details Date Type Department Care Team (Late st Contact Info) Description 11/09/2024 Refill Pat [facility] MED[facility] [address] [place] [address] Francheska Tucker FNP [address] [place] [address] Acquired hypothyroidism Social History Tobacco Use Types [...] documented as of this encounter Care Teams Database Specialist Relationship Specialty Start Date End Date Sharmila Azar DO [address] [place] [address] PCP - General Family Medicine 11/02/24 06/17/25 Inactive/Transferred PCP - General 06/18/25 06/18/25 Lei Thacker Health Navigator 09/17/24 documented as of this encounter
--- OUTSIDE RECORDS SUMMARY | 2025-08-10 16:30 | XMS_ITS | Encounter Summary ---
Author Organization [employer] Address [address] [place] [address] [address] [place] [address] Care Team Providers Care Direct Marketing Analyst Name Role Phone Shilpa Miller CNP Primary Care Provider [phone] Francheska Tucker Primary Care Provider [phone] Lei Thacker Unavailable Unavailable Sharmila Azar DO Primary Care Provider [phone] Inactive/Transferred Primary Care Provider Unava ilable Encounter Details Date Type Department Care Team (Late st Contact Info) Description 10/27/2022 Abstract Pat [facility] MEDICAL [address] [place] [address] Shilpa Miller CNP [address] [place] [address] Social History Tobacco Use Types Packs/Day Years [...] on filedocumented in this encounter Care Teams Direct Marketing Analyst Relationship Specialty Start Date End Date Shilpa Miller CNP 73 [facility] [place] [address] PCP - General Family Medicine 10/16/22 10/24/23 Francheska Tucker FNP 73 [facility] [place] [id number] PCP - General Family Medicine 10/25/23 11/01/24 Sharmila Azar DO [address] [place] [address] PCP - General Family Medicine 11/02/24 06/17/25 Inactive/Transferred PCP - General 06/18/25 06/18/25 Lei Thacker Health Navigator 09/17/24 documented as of this encounter
--- OUTSIDE RECORDS SUMMARY | 2025-08-10 16:30 | XMS_ITS | Encounter Summary ---
Author Organization [employer] Address 75 [facility] 7t [place] [address] Care Team Providers Care Plant Controls Specialist Name Role Phone Lei Thacker Unavailable Unavailable Encounter Details Date Type Department Care Team (Late st Contact Info) Description 07/22/2025 Results Follow-Up [facility] MEDICAL [address] [place], [place] [id number] Sharmila Azar DO [address] [place] [address] TSH with Reflex to Free T4 [[id number]] Social History Tobacco Use Types Packs/Day Years [...] documented as of this encounter Care Teams Plant Controls Specialist Relationship Specialty Start Date End Date Lei Thacker Health Navigator 09/17/24 documented as of this encounter
== END 2025-08-10 14:32 | disposition home or self-care (01) ==
LOC: HO.HPODS 13:59
PROVIDERS: PCP Nurse Practitioner Family; Visit Provider Student in an Organized Health Care Education/Training Program
DX: E11.8 Type 2 diabetes mellitus with unspecified complications (principal); B35.1 Tinea unguium; I89.0 Lymphedema, not elsewhere classified; R26.0 Ataxic gait; M20.41 Other hammer toe(s) (acquired), right foot
CPT/HCPCS: 11721; 99203

== ENCOUNTER → 2025-08-10 13:59 | Outpatient (BNVA) | payer MEDICARE, MEDICAID, SELFPAY | PROVIDERS: PCP Nurse Practitioner Family; Visit Provider Student in an Organized Health Care Education/Training Program | DX: B35.1 Tinea unguium (principal); E11.8 Type 2 diabetes mellitus with unspecified complications; I89.0 Lymphedema, not elsewhere classified; R26.0 Ataxic gait; M20.41 Other hammer toe(s) (acquired), right foot; E11.40 Type 2 diabetes mellitus with diabetic neuropathy, unspecified | CPT/HCPCS: 11721; 99202 ==

== ENCOUNTER 2025-08-17 13:54 | Outpatient (AMB) | payer MEDICARE, MEDICAID, SELFPAY ==
--- NOTE | 2025-08-17 14:23 | MHC.PC.OV ---
Vital Signs 08/17/25 14:24 Height 5 ft 2 in Weight 372 lb BMI 68.0 BP 142/84 H Blood Pressure Location Lt brachial Position Sitting Pulse 106 H Pulse Source Pulse Oximeter Pulse Oximetry (%) 97 Oxygen Delivery Method Room Air Intake Visit Reasons: office visit transfer from [place] Reeler Operator Required: No Accompanied by: Self / Same As Patient Allergies lamotrigine (From Lamictal) Allergy (Severe, Verified 08/17/25 14:24) Muscle Pain lithium Allergy (Severe, Verified 08/17/25 14:24) seizures omalizumab (Xolair) Allergy (Severe, Verified 08/17/25 14:24) anaphylaxis penicillin G Allergy (Severe, Verified 08/17/25 14:24) Anaphylaxis Sulfa (Sulfonamide Antibiotics) Allergy (Severe, Verified 08/17/25 14:24) anaphylaxis sulfamethoxazole (From Bactrim) Allergy (Severe, Verified 08/17/25 14:24) Anaphylaxis sumatriptan Allergy (Severe, Verified 08/17/25 14:24) Unknown trimethoprim (From Bactrim) Allergy (Severe, Verified 08/17/25 14:24) Anaphylaxis vortioxetine (From Trintellix) Allergy (Severe, Verified 08/17/25 14:24) serotin toxicity acetaminophen (From Tylenol) Allergy (Intermediate, Verified 08/17/25 14:24) Hives desvenlafaxine Allergy (Intermediate, Verified 08/17/25 14:24) Wheezing iodine Allergy (Intermediate, Verified 08/17/25 14:24) Rash ziprasidone Allergy (Intermediate, Verified 08/17/25 14:24) Seizure insulin aspart (From Novolog U-100 Insulin aspart) Allergy (Mild, Verified 08/17/25 14:24) Rash pediatric multivitamin no.130 (From Floriva Plus (with biotin)) Allergy (Mild, Verified 08/17/25 14:24) hives sodium fluoride (From Floriva Plus (with biotin)) Allergy (Mild, Verified 08/17/25 14:24) hives amoxicillin Allergy (Unknown, Verified 08/17/25 14:24) Unknown azithromycin (Zithromax) Allergy (Unknown, Verified 08/17/25 14:24) Unknown furosemide (Lasix) Allergy (Unknown, Verified 08/17/25 14:24) Unknown hydrochlorothiazide Allergy (Unknown, Verified 08/17/25 14:24) Unknown lisinopril Allergy (Unknown, Verified 08/17/25 14:24) Unknown metformin Allergy (Unknown, Verified 08/17/25 14:24) Unknown montelukast (Singulair) Allergy (Unknown, Verified 08/17/25 14:24) Unknown pravastatin Allergy (Unknown, Verified 08/17/25 14:24) Unknown spironolactone Allergy (Unknown, Verified 08/17/25 14:24) Unknown sulfacetamide Allergy (Unknown, Verified 08/17/25 14:24) Unknown gabapentin Allergy (Verified 08/17/25 14:24) night sweats liraglutide Adverse Reaction (Intermediate, Verified 08/17/25 14:24) Nausea and Vomiting semaglutide Adverse Reaction (Intermediate, Verified 08/17/25 14:24) Nausea and Vomiting zolair Allergy (Severe, Uncoded 08/17/25 14:24) Anaphylaxis JAYRO INHIBITORS Allergy (Unknown, Uncoded 08/17/25 14:24) Unknown LATEX Allergy (Unknown, Uncoded 08/17/25 14:24) Unknown NSAIDS Allergy (Unknown, Uncoded 08/17/25 14:24) Unknown SHELLFISH Allergy (Unknown, Uncoded 08/17/25 14:24) Unknown Sulfacet-R Allergy (Unknown, Uncoded 08/17/25 14:24) Unknown TREE NUTS Allergy (Unknown, Uncoded 08/17/25 14:24) Unknown Tobacco use date assessed: 08/17/25 Dental Screening Dental Screen Date: 08/17/25 Did you have a dental visit in the last 12 months?: Yes Did you have a dental problem in the last 6 months where you did not have access to dental care?: No Was dental information given to patient?: Patient has dentist HPI HPI Comments History of Present Illness Details The patient is a 55-year-old female presenting to [facility]. The patient has a history of osteoarthritis, initially diagnosed in her 30s, with significant knee involvement leading to a recommendation for knee replacement, which was deferred due to her age at the time. She reports that her joint pain has progressed to involve multiple joints, raising concerns about a possible rheumatoid arthritis diagnosis, despite the absence of rheumatoid factor. She has experienced fluctuating weight, with recent measurements indicating a weight of 372 pounds, down from 394 pounds in November, despite no significant changes in diet or exercise. The patient has been referred to weight management and has an upcoming appointment. The patient has a history of elevated white blood cell count and abnormal inflammatory markers, including C-reactive protein and sedimentation rate, suggesting possible inflammation or autoimmune disorder. She has been advised to see a steam powerplant supervisor for further evaluation. The patient has a history of anaphylaxis to medications, including Zolair and Bactrim, and reports a latex allergy, which has complicated her management of asthma and diabetes. She has also experienced allergic reactions to GLP-1 receptor agonists, including Ozempic and Mounjaro, characterized by gastrointestinal symptoms, wheezing, and hives. [facility] Medical History (Updated 08/17/25 @ 16:09 by Chuck Barifeld MD) Hx of seasonal allergies History of posttraumatic stress disorder (PTSD) Hx of mammogram (~04/2025) Torn meniscus Panic disorder Anxiety and depression Neuropathy Headache Incontinence GERD (gastroesophageal reflux disease) IBS (irritable bowel syndrome) Swelling Edema Osteoarthritis Arthritis Thyroid disorder Diabetes High cholesterol HTN (hypertension) Asthma Surgical History Hx of colonoscopy (~2018) History of tonsillectomy Previous section Family History Mother Asthma HTN (hypertension) High cholesterol Diabetes Cardiovascular disease Thyroid disorder Mental health disorder Maternal Grandmother HTN (hypertension) High cholesterol Cardiovascular disease Father High cholesterol Cardiovascular disease Lung cancer Mental health disorder Paternal Grandfather No problems noted. Maternal Grandfather Cardiovascular disease Paternal Grandmother Leukemia Social History Housing: House Alcohol intake: never Patient Tobacco Use Status: Never used Tobacco e-Cigarette/Vaping Use: Never Used Second Hand Smoke Exposure: No Current occupational status: disabled Cognitive needs: No Hearing needs: Yes (left hearing aide) Vision needs: Yes (wear glasses) Questionnaire Thrive Questionnaire Date Thrive assessed: 07/15/25 I am a: Patient What is your living situation today?: I have a steady place to live Within the past 12 months, did the food you bought not last and you didn't have the money to get more?: Often true Within the past 12 months, did you worry whether your food would run out before you got money to buy more?: Often true Do you have trouble paying for medicines?: No Do you have trouble getting transportation to medical appointments?: Yes Do you have trouble paying your heating and electricity bill?: Yes Do you have trouble taking care of your child, family member or friend?: No Do you have trouble with day-to-day activities such as bathing, preparing meals, shopping, managing finances, etc.?: No Are you currently unemployed and looking for a job?: No Are you interested in more education?: No Please select the resources that you would like help with: None Currently or been in a relationship where the following occur: No concerns reported THRIVE Score: 4 AUDIT C Alcohol Use Questionnaire (AUDIT-C) 1. How often do you have a drink containing alcohol?: Never 3. How often do you have six or more drinks on one occasion?: Never Total Score: 0 MIRIAN-7 AMB Questionnaire MIRIAN-7 Date MIRIAN - 7 assessed: 07/22/25 Source: Developed by Drs. Timbo Newman, Gin Correa, Sunday Chirinos and colleagues, with an educational lauri from [employer]. Review of Systems Const Details: Positives besides what was mentioned in HPI are in BOLD Constitutional: No Weight Change, No Fever, No Chills, No Night Sweats, No Fatigue, No Malaise ENT/Mouth: No Hearing Changes, No Ear Pain, No Nasal Congestion, No Sinus Pain, No Hoarseness, No sore throat, No Rhinorrhea, No Swallowing Difficulty Eyes: No Eye Pain, No Swelling, No Redness, No Foreign Body, No Discharge, No Vision Changes Cardiovascular: No Chest Pain, No SOB, No PND, No Dyspnea on Exertion, No Orthopnea, No Claudication, No Edema, No Palpitations Respiratory: No Cough, No Sputum, No Wheezing, No Smoke Exposure, No Dyspnea Gastrointestinal: No Nausea, No Vomiting, No Diarrhea, No Constipation, No Pain, No Heartburn, No Anorexia, No Dysphagia, No Hematochezia, No Melena, No Flatulence, No Jaundice Genitourinary: No Dysmenorrhea, No DUB, No Dyspareunia, No Dysuria, No Urinary Frequency, No Hematuria, No Urinary Incontinence, No Urgency, No Flank Pain, No Urinary Flow Changes, No Hesitancy Musculoskeletal: No Arthralgias, No Myalgias, No Joint Swelling, No Joint Stiffness, No Back Pain, No Neck Pain, No Injury History Skin: No Skin Lesions, No Pruritis, No Hair Changes, No Breast/Skin Changes, No Nipple Discharge Neuro: No Weakness, No Numbness, No Paresthesias, No Loss of Consciousness, No Syncope, No Dizziness, No Headache, No Coordination Changes, No Recent Falls Psych: No Anxiety/Panic, No Depression, No Insomnia, No Personality Changes, No Delusions, No Rumination, No SI/HI/AH/VH, No Social Issues, No Memory Changes, No Violence/Abuse Hx., No Eating Concerns Heme/Lymph: No Bruising, No Bleeding, No Transfusions History, No Lymphadenopathy Endocrine: No Polyuria, No Polydipsia, No Temperature Intolerance Physical exam (Primary Care) Vital Signs: Last Vital Signs Pulse 106 H 08/17/25 14:24 BP 142/84 H 08/17/25 14:24 Pulse Ox 97 08/17/25 14:24 Oxygen Delivery Method Room Air 08/17/25 14:24 BMI result Body Mass Index 68.0 Tobacco/Smoking Status: Tobacco use Status Tobacco use date assessed 08/17/25 08/17/25 14:32 Patient Tobacco Use Status Never used Tobacco 08/17/25 14:32 e-Cigarette/Vaping Use Never Used 08/17/25 14:32 Thrive Assessment: Date of Thrive Assessment Date Thrive assessed 07/15/25 08/17/25 14:32 Currently or been in a relationship where the following occur: No concerns reported Const Other: Pertinent findings are in BOLD GENERAL APPEARANCE NAD, activity normal for age, well developed/ well nourished, no cyanosis, pallor, or diaphoresis. EYES lids/conjunctiva normal. EARS/NOSE/THROAT Mucous membranes moist, nares normal, lips/teeth normal uvula midline without oral pharyngeal erythema, exudate or swelling TMs normal bilaterally. No lymphangitis/lymphedema. HEAD/NECK normocephalic atraumatic, no facial trauma, neck is supple. RESPIRATORY respiratory effort normal, speaks in full sentences, no tripod position, no accessory muscle use. Lungs clear to auscultation without rhonchi, wheezes, rales CARDIAC Regular rate and rhythm, no edema. ABDOMINAL Soft, ND/NT. No evidence of fluid wave. No pulsatile masses on exam, rebound tenderness, Santana sign or pain over Mcburney's point. MUSCLES/EXTREMITIES No abnormal range of motion, Lower extremity edema (BL). SKIN Warm, pink and dry. No rashes, dermatoses, petechiae or lesions. NEUROLOGICAL Speech is clear and appropriate. Normal level of consciousness. Gait and coordination are normal. 5/5 strength in all extremities. PSYCH Normal mood and affect. 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 (2) Allergy: Code(s): T78.40XA - Allergy, unspecified, initial encounter Category: Medical Plan: Allergy referral to assist with known history of allergies. (3) Healthcare maintenance: Code(s): Z00.00 - Encounter for general adult medical examination without abnormal findings Category: Medical Plan: CBC, CMP, Lipid panel, A1C, TSH w T4, vit D. Next visit. Shingles 2 doses when >50 yo. No, check with retail pharmacy. COVID: two doses. Completed. Tdap: done in 2023. Pneumococcal: 19-64. Had it in the past. Flu vaccine: Done at retail pharmacy. Colonoscopy: 45-75. last done 2020. AAA: 65 -75. NI. CT lun - 80. NI. HPV: record keeper 3years ago. Due Oct 2025. HIV: Today. HBV: Today. HCV: Today. Dexa: Due at 65. Mammogram: Will bring list with next visit. (4) Arthritis: Code(s): M19.90 - Unspecified osteoarthritis, unspecified site Category: Medical Plan: - Referral to rheumatology for comprehensive evaluation and management. - diffuse joint pain although she has negative RF and CCP. - She has elevated CRP and ESR. (5) Obesity: Code(s): E66.9 - Obesity, unspecified Category: Medical Plan: - Continue with weight management program and monitor weight changes. - Advised on cutting out dairy, gluten, sugar and red meat. (6) Hyperlipidemia associated with type 2 diabetes mellitus: Code(s): E11.69 - Type 2 diabetes mellitus with other specified complication; E78.5 - Hyperlipidemia, unspecified Category: Medical Plan: - Continue atorvastatin therapy and monitor lipid levels. (7) Hypertension complicating diabetes: Code(s): E11.9 - Type 2 diabetes mellitus without complications; I10 - Essential (primary) hypertension Category: Medical Plan: - Continue current antihypertensive therapy and monitor blood pressure regularly. (8) Asthma: Code(s): J45.909 - Unspecified asthma, uncomplicated Category: Medical Plan: - Continue current asthma management and avoid known triggers. (9) Diabetes mellitus with complication: Code(s): E11.8 - Type 2 diabetes mellitus with unspecified complications Category: Medical Plan: - Continue current diabetes management plan under safe and vault installer supervision. (10) Hypothyroid: Code(s): E03.9 - Hypothyroidism, unspecified Category: Medical Qualifiers: Hypothyroidism type: due to Gene's thyroiditis Qualified Code(s): E06.3 - Autoimmune thyroiditis Plan: - Continue current diabetes management plan under safe and vault installer supervision. Plan Time spent 45 min: This includes time spent before the visit reviewing the chart, time spent during the visit, and time spent after the visit and documentation. Orders: Orders Comprehensive Met. Panel Today Z00.00 - Encounter for general adult medical examination without abnormal findings Hepatitis B Surface Antibody Today Z00.00 - Encounter for general adult medical examination without abnormal findings Hepatitis B Surface Antigen Today Z00.00 - Encounter for general adult medical examination without abnormal findings HIV Ab/Ag Today Z00.00 - Encounter for general adult medical examination without abnormal findings TSH reflex Free T4 Today Z00.00 - Encounter for general adult medical examination without abnormal findings Vitamin D 25-OH (D2 and D3) Today Z00.00 - Encounter for general adult medical examination without abnormal findings Complete Blood Count Auto Diff Today Z00.00 - Encounter for general adult medical examination without abnormal findings Hemoglobin A1c Today Z00.00 - Encounter for general adult medical examination without abnormal findings Hepatitis B Core Antibody Today Z00.00 - Encounter for general adult medical examination without abnormal findings Hepatitis C Antibody Reflex Today Z00.00 - Encounter for general adult medical examination without abnormal findings IRON PROFILE Today Z00.00 - Encounter for general adult medical examination without abnormal findings Lipid Panel Today Z00.00 - Encounter for general adult medical examination without abnormal findings Referrals Rheumatology Referral M19.90 - Unspecified osteoarthritis, unspecified site Allergy & Immunology Referral T78.2XXA - Anaphylactic shock, unspecified, initial encounter, T78.40XA - Allergy, unspecified, initial encounter Medications: New losartan 100 mg PO DAILY 90 tabs 3RF epinephrine 0.3 mL IM ONCE 2 ea 3RF levalbuterol tartrate 45 mcg/actuation 2 puffs inhalation Q4-6H 15 grams 3RF amlodipine 5 mg PO DAILY 90 tabs 3RF atorvastatin 20 mg PO QAM 90 tabs 3RF
[2025-08-17 14:24] VITALS: BP 142/84; PULSE 106; O2SAT 97; BMI 68.0
== END 2025-08-17 15:22 | disposition home or self-care (01) ==
LOC: HO.HMCH 13:55
PROVIDERS: PCP Internal Medicine; Visit Provider Internal Medicine
DX: Z00.00 Encounter for general adult medical examination without abnormal findings (principal); E11.69 Type 2 diabetes mellitus with other specified complication; E11.8 Type 2 diabetes mellitus with unspecified complications; T78.2XXA Anaphylactic shock, unspecified, initial encounter; T78.40XA Allergy, unspecified, initial encounter; M19.90 Unspecified osteoarthritis, unspecified site; E66.9 Obesity, unspecified; E78.5 Hyperlipidemia, unspecified; I10 Essential (primary) hypertension; J45.909 Unspecified asthma, uncomplicated; E06.3 Autoimmune thyroiditis

== ENCOUNTER → 2025-08-17 13:54 | Outpatient (BNVA) | payer MEDICARE, MEDICAID, SELFPAY | PROVIDERS: PCP Nurse Practitioner Family; Visit Provider Internal Medicine | DX: Z00.00 Encounter for general adult medical examination without abnormal findings (principal); M19.90 Unspecified osteoarthritis, unspecified site; E11.69 Type 2 diabetes mellitus with other specified complication; E66.9 Obesity, unspecified; R60.0 Localized edema; E78.5 Hyperlipidemia, unspecified; I10 Essential (primary) hypertension; J45.909 Unspecified asthma, uncomplicated; E06.3 Autoimmune thyroiditis; Z68.44 Body mass index [BMI] 60.0-69.9, adult; Z91.09 Other allergy status, other than to drugs and biological substances | CPT/HCPCS: 99396 ==

== ENCOUNTER 2025-09-07 11:02 | Outpatient (REF) | payer MEDICARE, MEDICAID, SELFPAY ==
--- OUTSIDE RECORDS SUMMARY | 2025-09-07 13:56 | XMS_ITS | Encounter Summary ---
Author Organization [employer] Address [address] [facility] [address] [place] [address] Care Team Providers Care Dairy Lab Technician Name Role Phone Francheska Tucker MADELEINE Primary Care Provider [phone] Lei Thacker Unavailable Unavailable Sharmila Azar DO Primary Care Provider [phone] Inactive/Transferred Primary Care Provider Unava ilable Inactive/Transferred Primary Care Provider Unava ilable Reason for Visit * Reason Onset Date Comments Med Refill 05/21/2024 Encounter Details Date Type Department Care Team (Late st Contact Info) Description 05/21/2024 Refill Pat [facility] MEDICAL [address] [place] [id number] Shilpa Miller, SIZE STAMPER [address] [place] [address] Type 2 diabetes mellitus with diabetic polyneuropathy, with long-term current use of insulin ([facility]) Social History Tobacco Use [...] VM I am going to send a [employer] message. documented in this encounter Plan of Treatment Not on file documented as of this encounter Visit Diagnoses Diagnosis Type 2 diabetes mellitus with diabetic polyneuropathy, with long-term current use of insulin (HCC) documented in this encounter Additional Health Concerns Assessment Noted Time PHQ-9 Depression Total Score: 024 7:38 AM EDT documented as of this encounter Care Teams Dairy Lab Technician Relationship Specialty Start Date End Date Francheska Tucker FNP [address] [place] [address] PCP - General Family Medicine 10/25/23 11/01/24 Sharmila Azar DO [address] [place] [address] PCP - General Family Medicine 11/02/24 06/17/25 Inactive/Transferred PCP - General 06/18/25 06/18/25 Inactive/Transferred PCP - General 08/12/25 Lei Thacker Health Navigator 09/17/24 documented as of this encounter
--- OUTSIDE RECORDS SUMMARY | 2025-09-07 13:56 | XMS_ITS | Encounter Summary ---
Author Organization [employer] Address [address] [facility] 7t [place] [address] Care Team Providers Care Machine Cloth Measurer Name Role Phone Francheska Tucker MADELEINE Primary Care Provider [phone] Lei Thacker Unavailable Unavailable Sharmila Azar DO Primary Care Provider [phone] Inactive/Transferred Primary Care Provider Unava ilable Inactive/Transferred Primary Care Provider Unava ilable Encounter Details Date Type Department Care Team (Late st Contact Info) Description 06/25/2024 Orders Only [place] [facility] MEDICAL [address] [place] [address] Provider, MD Sharad Social History Tobacco Use [...] documented as of this encounter Care Teams Machine Cloth Measurer Relationship Specialty Start Date End Date Francheska Tucker FNP [address] [facility] [place] [address] PCP - General Family Medicine 10/25/23 11/01/24 Sharmila Azar DO [address] [facility] [place] [address] PCP - General Family Medicine 11/02/24 06/17/25 Inactive/Transferred PCP - General 06/18/25 06/18/25 Inactive/Transferred PCP - General 08/12/25 Lei Thacker Health Navigator 09/17/24 documented as of this encounter
--- OUTSIDE RECORDS SUMMARY | 2025-09-07 13:56 | XMS_ITS | Encounter Summary ---
Author Organization [employer] Address [address] [facility] [address] [place] [address] Care Team Providers Care Support Associate Name Role Phone Lei Thacker Unavailable Unavailable Sharmila Azar DO Primary Care Provider [phone] Inactive/Transferred Primary Care Provider Unava ilable Inactive/Transferred Primary Care Provider Unava ilable Reason for Visit * Reason Comments Med Change Request Encounter Details Date Type Department Care Team (Late st Contact Info) Description 03/06/2025 Chasill Pat [facility] MEDICAL [address] [place] [address] Sharmila Azar DO [address] [place] [address] Type 2 diabetes mellitus with diabetic polyneuropathy, with long-term current use of insulin ([facility]) Social History Tobacco Use Types [...] documented as of this encounter Care Teams Support Associate Relationship Specialty Start Date End Date Sharmila Azar DO [address] [place] [address] PCP - General Family Medicine 11/02/24 06/17/25 Inactive/Transferred PCP - General 06/18/25 06/18/25 Inactive/Transferred PCP - General 08/12/25 Lei Thacker Health Navigator 09/17/24 documented as of this encounter
--- OUTSIDE RECORDS SUMMARY | 2025-09-07 13:56 | XMS_ITS | Encounter Summary ---
Author Organization [employer] Address [address] [facility] [address] [place] [address] Care Team Providers Care Reordering Clerk Name Role Phone Lei Thacker Unavailable Unavailable Sharmila Azar DO Primary Care Provider [phone] Inactive/Transferred Primary Care Provider Unava ilable Inactive/Transferred Primary Care Provider Unava ilable Reason for Visit * Reason Comments Med Refill Encounter Details Date Type Department Care Team (Late st Contact Info) Description 03/02/2025 Refill [facility] MEDICAL [address] [place] [address] Sharmila Azar DO [address] [place] [address] Anxiety; PTSD (post-traumatic stress disorder) Social History [...] documented as of this encounter Care Teams Reordering Clerk Relationship Specialty Start Date End Date Sharmila Azar DO [address] [place] [address] PCP - General Family Medicine 11/02/24 06/17/25 Inactive/Transferred PCP - General 06/18/25 06/18/25 Inactive/Transferred PCP - General 08/12/25 Lei Thacker Health Navigator 09/17/24 documented as of this encounter
--- OUTSIDE RECORDS SUMMARY | 2025-09-07 13:56 | XMS_ITS | Encounter Summary ---
Author Organization [employer] Address [address] [facility] [address] [place] [address] Care Team Providers Care Engine Cleaner Name Role Phone Lei Thacker Unavailable Unavailable Sharmila Azar Primary Care Provider [phone] Inactive/Transferred Primary Care Provider Unava ilable Inactive/Transferred Primary Care Provider Unava ilable Reason for Visit * Reason Onset Date Comments Med Refill 02/09/2025 Encounter Details Date Type Department Care Team (Late st Contact Info) Description 02/09/2025 Refill Pat [facility] MEDICAL [address] [place] [address] Francheska Tucker, SUPERVISOR SHIPFITTERS [address] [place] [address] Type 2 diabetes mellitus with diabetic polyneuropathy [...] documented as of this encounter Care Teams Engine Cleaner Relationship Specialty Start Date End Date Sharmila Azar DO [address] [place] [address] PCP - General Family Medicine 11/02/24 06/17/25 Inactive/Transferred PCP - General 06/18/25 06/18/25 Inactive/Transferred PCP - General 08/12/25 Lei Thacker Health Navigator 09/17/24 documented as of this encounter
--- OUTSIDE RECORDS SUMMARY | 2025-09-07 13:56 | XMS_ITS | Encounter Summary ---
Author Organization [employer] Address [address] [place] [address] 7 [place] [address] Care Team Providers Care Screen Room Operator Name Role Phone Lei Thacker Unavailable Unavailable Sharmila Azar DO Primary Care Provider [phone] Inactive/Transferred Primary Care Provider Unava ilable Inactive/Transferred Primary Care Provider Unava ilable Reason for Visit * Reason Onset Date Comments Med Refill 02/18/2025 Encounter Details Date Type Department Care Team (Late st Contact Info) Description 02/18/2025 Refill [place] [facility] MED[facility] [address] [place] [address] Sharmila Azar DO [address] [place] [address] Anxiety; PTSD (post-traumatic stress disorder) Social History [...] documented as of this encounter Care Teams Screen Room Operator Relationship Specialty Start Date End Date Sharmila Azar DO [address] [place] [address] PCP - General Family Medicine 11/02/24 06/17/25 Inactive/Transferred PCP - General 06/18/25 06/18/25 Inactive/Transferred PCP - General 08/12/25 Lei Thacker Health Navigator 09/17/24 documented as of this encounter
--- OUTSIDE RECORDS SUMMARY | 2025-09-07 13:56 | XMS_ITS | Encounter Summary ---
Author Organization [employer] Address [address] [place] [address] 7t [place] [address] Care Team Providers Care Tank Farm Gauger Name Role Phone Francheska Tucker Primary Care Provider [phone] Lei Thacker Unavailable Unavailable Sharmila Azar DO Primary Care Provider [phone] Inactive/Transferred Primary Care Provider Unava ilable Inactive/Transferred Primary Care Provider Unava ilable Reason for Visit * Reason Comments Med Change Request Encounter Details Date Type Department Care Team (Late st Contact Info) Description 05/26/2024 Oneyda Stewart [facility] MEDICAL [address] [place] [address] Francheska Tucker FNP [address] [place] [address] Type 2 diabetes mellitus with diabetic polyneuropathy, with long-term current use of insulin ([facility]) Social History Tobacco Use Types [...] as of this encounter Care Teams Tank Farm Gauger Relationship Specialty Start Date End Date Francheska Tucker FNP [address] [facility] [place] [address] PCP - General Family Medicine 10/25/23 11/01/24 Sharmila Azar DO 73 [facility] [place] [address] PCP - General Family Medicine 11/02/24 06/17/25 Inactive/Transferred PCP - General 06/18/25 06/18/25 Inactive/Transferred PCP - General 08/12/25 Lei Thacker Health Navigator 09/17/24 documented as of this encounter
--- OUTSIDE RECORDS SUMMARY | 2025-09-07 13:57 | XMS_ITS | Encounter Summary ---
Author Organization [employer] Address [address] [place] [address] 7 [place] [address] Care Team Providers Care Jewel Hole Gauger Name Role Phone Francheska Tucker MADELEINE Primary Care Provider [phone] KedarLei Angela Unavailable Unavailable Sharmila Azar DO Primary Care Provider [phone] Inactive/Transferred Primary Care Provider Unava ilable Inactive/Transferred Primary Care Provider Unava ilable Reason for Visit * Reason Comments Med Change Request Encounter Details Date Type Department Care Team (Late st Contact Info) Description 05/12/2024 Oneyda Stewart [facility] MEDICAL [address] [place] [address] Shilpa Miller, MARIA C [address] [place] [address] Psychophysiological insomnia Social History Tobacco Use Types [...] documented as of this encounter Care Teams Jewel Hole Gauger Relationship Specialty Start Date End Date Francheska Tucker FNP [address] [place] [address] PCP - General Family Medicine 10/25/23 11/01/24 Sharmila Azar DO 73 [facility] [place] [address] PCP - General Family Medicine 11/02/24 06/17/25 Inactive/Transferred PCP - General 06/18/25 06/18/25 Inactive/Transferred PCP - General 08/12/25 Lei Thacker Health Navigator 09/17/24 documented as of this encounter
--- OUTSIDE RECORDS SUMMARY | 2025-09-07 13:57 | XMS_ITS | Encounter Summary ---
Author Organization [employer] Address [address] [place] [address] 7 [place] [address] Care Team Providers Care Rodding Machine Tender Name Role Phone Francheska Tucker MADELEINE Primary Care Provider [phone] KedarLei Angela Unavailable Unavailable Sharmila Azar DO Primary Care Provider [phone] Inactive/Transferred Primary Care Provider Unava ilable Inactive/Transferred Primary Care Provider Unava ilable Reason for Visit * Reason Comments Med Change Request Encounter Details Date Type Department Care Team (Late st Contact Info) Description 05/12/2024 Oneyda Stewart [facility] MEDICAL [address] [place] [address] Shilpa Miller, MARIA C 73 [place] [address] Psychophysiological insomnia Social History Tobacco Use Types [...] documented as of this encounter Care Teams Rodding Machine Tender Relationship Specialty Start Date End Date Francheska Tucker FNP 73 [facility] [place] [address] PCP - General Family Medicine 10/25/23 11/01/24 Sharmila Azar DO 73 [facility] [place] [address] PCP - General Family Medicine 11/02/24 06/17/25 Inactive/Transferred PCP - General 06/18/25 06/18/25 Inactive/Transferred PCP - General 08/12/25 Lei Thacker Health Navigator 09/17/24 documented as of this encounter
--- OUTSIDE RECORDS SUMMARY | 2025-09-07 13:57 | XMS_ITS | Encounter Summary ---
Author Organization [employer] Address [address] [facility] [address] 7t [place] [address] Care Team Providers Care Restaurant Managing Partner Name Role Phone Francheska Tucker MADELEINE Primary Care Provider [phone] Lei Thacker Unavailable Unavailable Sharmila Azar DO Primary Care Provider [phone] Inactive/Transferred Primary Care Provider Unava ilable Inactive/Transferred Primary Care Provider Unava ilable Encounter Details Date Type Department Care Team (Late st Contact Info) Description 12/19/2023 Orders Only [place] [facility] MEDICAL [address] [place] [address] Provider, MD Sharad Social History Tobacco Use [...] on filedocumented in this encounter Care Teams Restaurant Managing Partner Relationship Specialty Start Date End Date Francheska Tucker FNP 73 [place] [address] PCP - General Family Medicine 10/25/23 11/01/24 Sharmila Azar DO 73 [place] [address] PCP - General Family Medicine 11/02/24 06/17/25 Inactive/Transferred PCP - General 06/18/25 06/18/25 Inactive/Transferred PCP - General 08/12/25 Lei Thacker Health Navigator 09/17/24 documented as of this encounter
--- OUTSIDE RECORDS SUMMARY | 2025-09-07 13:57 | XMS_ITS | Encounter Summary ---
Author Organization [employer] Address 75 [facility] 7 [place] [address] Care Team Providers Care Clarifier Name Role Phone Lei Thacker Unavailable Unavailable Sharmila Azar DO Primary Care Provider [phone] Inactive/Transferred Primary Care Provider Unava ilable Inactive/Transferred Primary Care Provider Unava ilable Reason for Visit * Reason Onset Date Comments Med Refill 11/27/2024 Encounter Details Date Type Department Care Team (Late st Contact Info) Description 11/27/2024 Refill [place] [facility] MED[facility] 73 [place] [address] Sharmila Azar DO 73 [place] [address] Anxiety; PTSD (post-traumatic stress disorder) Social History [...] * Telephone Encounter - Kameron Lombardi - 11/28/2024 10:33 AM EST RX [...] documented as of this encounter Care Teams Clarifier Relationship Specialty Start Date End Date Sharmila Azar DO 73 [place] [address] PCP - General Family Medicine 11/02/24 06/17/25 Inactive/Transferred PCP - General 06/18/25 06/18/25 Inactive/Transferred PCP - General 08/12/25 Lei Thacker Health Navigator 09/17/24 documented as of this encounter
--- OUTSIDE RECORDS SUMMARY | 2025-09-07 13:57 | XMS_ITS | Encounter Summary ---
Author Organization [employer] Address 75 [facility] 7t [place] [address] Care Team Providers Care File Drawer Finisher Name Role Phone Lei Thacker Unavailable Unavailable Inactive/Transferred Primary Care Provider Unava ilable Encounter Details Date Type Department Care Team (Late st Contact Info) Description 07/17/2025 Orders Only [place] [facility] MEDICAL [address] [place] [address] Sharmila Azar DO 73 [place] [address] Arthralgia of both knees (Primary Dx); Lymphedema; [...] Expected: 07/23/2025 (Approximate), Expires: 07/23/2026 Blood culture [id number] Microbiology Routine Abnormal CBC ESR raised Expected: 07/23/2025, Expires: 07/23/2026 documented as of this encounter Procedures Procedure Name Priority Date/Time Associated Diagnosis Comments CBC WITH AUTO DIFFERENTIAL Routine 07/20/2025 9:20 AM EDT Arthralgia of both knees Lymphedema COMPREHENSIVE METABOLIC PANEL Routine 07/20/2025 9:20 AM EDT Arthralgia of both knees Lymphedema documented in this encounter Results * (ABNORMAL) Comprehensive Metabolic Panel [[id number]] (07/20/2025 9:20 AM EDT) Glucose 143(H) 70 [...] Resulting Agency Comment Performed at: 01 - [address] [id number] Photographic Specialist: Megan Curry MD, Phone: [phone] us Sharmila Azar DO LAB BLOOD ORDERABLES [...] Resulting Agency Comment Performed at: 01 - [address] [id number] Photographic Specialist: Megan Curry MD, Phone: [phone] us Sharmila Azar DO LAB BLOOD ORDERABLES [...] as of this encounter Care Teams File Drawer Finisher Relationship Specialty Start Date End Date Inactive/Transferred PCP - General 08/12/25 Lei Thacker Health Navigator 09/17/24 documented as of this encounter
--- OUTSIDE RECORDS SUMMARY | 2025-09-07 13:57 | XMS_ITS | Encounter Summary ---
Author Organization [employer] Address 75 [facility] 7 [place] [address] Care Team Providers Care Catering Sous Chef Name Role Phone Lei Thacker Unavailable Unavailable Sharmila Azar DO Primary Care Provider [phone] Inactive/Transferred Primary Care Provider Unava ilable Inactive/Transferred Primary Care Provider Unava ilable Reason for Visit * Reason Comments Med Change Request Encounter Details Date Type Department Care Team (Late st Contact Info) Description 01/26/2025 Oneyda Stewart [facility] MEDICAL [address] [place] [address] Sharmila Azar DO [address] [place] [address] Type 2 diabetes mellitus with diabetic polyneuropathy, with long-term current use of insulin ([facility]) Social History Tobacco Use Types Packs/Day Years [...] documented as of this encounter Care Teams Catering Sous Chef Relationship Specialty Start Date End Date Sharmila Azar DO [address] [place] [address] PCP - General Family Medicine 11/02/24 06/17/25 Inactive/Transferred PCP - General 06/18/25 06/18/25 Inactive/Transferred PCP - General 08/12/25 Lei Thacker Health Navigator 09/17/24 documented as of this encounter
--- OUTSIDE RECORDS SUMMARY | 2025-09-07 13:57 | XMS_ITS | Encounter Summary ---
Author Organization [employer] Address [address] [place] [address] 7t [place] [address] Care Team Providers Care Wireless Technician Name Role Phone Francheska Tucker MADELEINE Primary Care Provider [phone] Lei Thacker Unavailable Unavailable Sharmila Azar DO Primary Care Provider [phone] Inactive/Transferred Primary Care Provider Unava ilable Inactive/Transferred Primary Care Provider Unava ilable Reason for Visit * Reason Comments Med Change Request Encounter Details Date Type Department Care Team (Late st Contact Info) Description 01/14/2024 Oneyda Stewart [facility] MEDICAL [address] [place] [address] Shilpa Miller, MARIA C [address] [place] [address] Type 2 diabetes mellitus with diabetic polyneuropathy, with long-term current use of insulin ([facility]) Social History Tobacco Use Types Packs/Day Years [...] the past 12 months, has t he [employer], gas, oil or water [employer] threatened to shut off services in [...] was filled out yesterday and faxed to [employer] there was another TE on this. documented in this encounter Plan of Treatment Not on file documented as of this encounter Visit Diagnoses Diagnosis Type 2 diabetes mellitus with diabetic polyneuropathy, with long-term current use of insulin (HCC) documented in this encounter Care Teams Wireless Technician Relationship Specialty Start Date End Date Francheska Tucker FNP 73 [facility] [place] [address] PCP - General Family Medicine 10/25/23 11/01/24 Sharmila Azar DO [address] [facility] [place] [address] PCP - General Family Medicine 11/02/24 06/17/25 Inactive/Transferred PCP - General 06/18/25 06/18/25 Inactive/Transferred PCP - General 08/12/25 Lei Thacker Health Navigator 09/17/24 documented as of this encounter
--- OUTSIDE RECORDS SUMMARY | 2025-09-07 13:57 | XMS_ITS | Encounter Summary ---
Author Organization [employer] Address 75 [facility] 7t [place] [address] Care Team Providers Care Knife Edger Name Role Phone Francheska Tucker Primary Care Provider [phone] Lei Thacker Unavailable Unavailable Sharmila Azar DO Primary Care Provider [phone] Inactive/Transferred Primary Care Provider Unava ilable Inactive/Transferred Primary Care Provider Unava ilable Encounter Details Date Type Department Care Team (Late st Contact Info) Description 07/25/2024 Orders Only [place] [facility] [address] [place] [address] Francheska Tucker FNP [address] [place] [address] Social History Tobacco Use Types Packs/Day Years [...] Blood Venous blood specimen / Unknown Result [facility] Francheska SALVADOR LAB BLOOD ORDERABLES Final Resul t * XR Tibia Fibula 2 Views Right (07/23/2024 9:00 AM EDT) Anatomical Region Laterality Modality Lower Extremities, Lower Leg Right Rad iographic Imaging Francheska DEL RIOP IMG XR PROCEDURES Final Result documented in this encounter Visit Diagnoses Not on filedocumented in this encounter Additional Health Concerns Assessment Noted Time PHQ-9 Depression Total Score: 20 024 7:38 AM EDT documented as of this encounter Care Teams Knife Edger Relationship Specialty Start Date End Date Francheska Tucker FNP [address] [place] [address] PCP - General Family Medicine 10/25/23 11/01/24 Sharmila Azar DO [address] [place] [address] PCP - General Family Medicine 11/02/24 06/17/25 Inactive/Transferred PCP - General 06/18/25 06/18/25 Inactive/Transferred PCP - General 08/12/25 Lei Thacker Health Navigator 09/17/24 documented as of this encounter
--- OUTSIDE RECORDS SUMMARY | 2025-09-07 13:57 | XMS_ITS | Encounter Summary ---
Author Organization [employer] Address 75 [facility] 7 [place] [address] Care Team Providers Care Clinical Pharmacist Name Role Phone Lei Thacker Unavailable Unavailable Sharmila Azar DO Primary Care Provider [phone] Inactive/Transferred Primary Care Provider Unava ilable Inactive/Transferred Primary Care Provider Unava ilable Reason for Visit * Reason Onset Date Comments Med Refill 12/24/2024 Encounter Details Date Type Department Care Team (Late st Contact Info) Description 12/24/2024 Refill [place] [facility] MED[facility] [address] [place] [address] Sharmila Azar DO [address] [place] [address] Anxiety; PTSD (post-traumatic stress disorder) Social History [...] Miscellaneous Notes * Telephone Encounter - Kameron Lmobardi - 12/25/2024 5:24 PM EST Rx was [...] documented as of this encounter Care Teams Clinical Pharmacist Relationship Specialty Start Date End Date Sharmila Azar DO [address] [place] [address] PCP - General Family Medicine 11/02/24 06/17/25 Inactive/Transferred PCP - General 06/18/25 06/18/25 Inactive/Transferred PCP - General 08/12/25 Lei Thacker Health Navigator 09/17/24 documented as of this encounter
--- OUTSIDE RECORDS SUMMARY | 2025-09-07 13:57 | XMS_ITS | Encounter Summary ---
Author Organization [email or web address] Address 75 [facility] 7 [place] [address] Care Team Providers Care Glue Reel Operator Name Role Phone Lei Thacker Unavailable Unavailable Sharmila Azar DO Primary Care Provider [phone] Inactive/Transferred Primary Care Provider Unava ilable Inactive/Transferred Primary Care Provider Unava ilable Reason for Visit * Reason Onset Date Comments Med Refill 12/11/2024 Encounter Details Date Type Department Care Team (Late st Contact Info) Description 12/11/2024 Refill [place] [facility] MED[facility] [address] [place] [address] Sharmila Azar DO [address] [place] [address] Anxiety; PTSD (post-traumatic stress disorder) Social History [...] documented as of this encounter Care Teams Glue Reel Operator Relationship Specialty Start Date End Date Sharmila Azar DO [address] [place] [address] PCP - General Family Medicine 11/02/24 06/17/25 Inactive/Transferred PCP - General 06/18/25 06/18/25 Inactive/Transferred PCP - General 08/12/25 Lei Thacker Health Navigator 09/17/24 documented as of this encounter
--- OUTSIDE RECORDS SUMMARY | 2025-09-07 13:57 | XMS_ITS | Encounter Summary ---
Author Organization [employer] Address 75 [facility] 7t [place] [address] Care Team Providers Care Supervisor Paint Name Role Phone Lei Thacker Unavailable Unavailable Sharmila Azar Primary Care Provider [phone] Inactive/Transferred Primary Care Provider Unava ilable Inactive/Transferred Primary Care Provider Unava ilable Reason for Visit * Reason Onset Date Comments Med Refill 01/31/2025 Encounter Details Date Type Department Care Team (Late st Contact Info) Description 01/31/2025 Refill Pat [facility] MED[facility] [address] [place] [address] Francheska Tucker, MADELEINE [address] [place] [address] Essential (primary) hypertension Social History Tobacco Use [...] as of this encounter Care Teams Supervisor Paint Relationship Specialty Start Date End Date Sharmila Azar DO [address] [place] [address] PCP - General Family Medicine 11/02/24 06/17/25 Inactive/Transferred PCP - General 06/18/25 06/18/25 Inactive/Transferred PCP - General 08/12/25 Lei Thacker Health Navigator 09/17/24 documented as of this encounter
--- OUTSIDE RECORDS SUMMARY | 2025-09-07 13:57 | XMS_ITS | Patient Health Record ---
Author Organization [facility] Address [address] [place] [address] Care Team Providers Care Research Tech Name Role Phone Laisha Castañeda Unavailable [phone] Reason For Referral No Information Medications Medication SIG (Take, Route, Frequency, Duration) Notes Start Date End Date Status Viibryd 40MG ORAL; Duration: -3 [facility] 04/28/2014 Active Vitamin D3 1000 IU ORAL daily; Duration: - [facility] 2013 Active Aspirin EC 81MG 1 ORAL daily; Durati on: - [facility] 04/28/2014 Active Nebulizer ORAL; Duration: - [facility] 04/28/2014 Active oxyCODONE HCl 5MG ORAL; Duration: - [facility] 04/28/2014 Active Pravastatin Sodium 20MG 1 ORAL daily; Du ration: - [facility] 04/28/2014 Active Singulair 10MG ORAL; Duration: - [facility] 04/28/2014 Active Combivent 103-18 2 INHALE four times daily; Duration: - [facility] 04/28/2014 Active KlonoPIN 0.5MG ORAL four times shannon y; Duration: [facility] 04/28/2014 Active Levothyroxine Sodium 125MCG 1 ORAL daily ; Duration: - [facility] 04/28/2014 Active metFORMIN HCl ER 500MG ORAL; Duration: - [facility] 04/28/20 14 Active Problems Problem Type SNOMED Code ICD Code Onset Dates Problem Status W/U Status Risk Notes Problem Hypothyroidism (36754817) Unspecified hypothyroidism (244.9) Active confirmed Problem Type II diabetes mellitus without complication (180871092) Diabetes mellitus without mention of complication, type II or unspecified type, not stated as uncontrolled (250.00) Active confirmed Problem Pure hypercholesterolemia (514368028) Pure hypercholesterolemia (272.0) Active confirmed Problem Morbid obesity (779363479) Morbid obesity (278.01) Active confirmed Problem Schizoaffective disorder (58072877) Schizoaffective disorder, unspecified (295.70) Active confirmed Problem Panic disorder with agoraphobia (99483904) Agoraphobia with panic disorder (300.21) Active confirmed Problem Obsessive-compulsive disorder (250515611) Obsessive-compulsive disorders (300.3) Active confirmed Problem Posttraumatic stress disorder (86465189) Posttraumatic stress disorder (309.81) Active confirmed Problem Attention deficit hyperactivity disorder (236432305) 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) Active confirmed Problem Migraine (disorder) (43844917) Migraine, unspecified without mention of intractable migraine without mention of status migrainosus (346.90) Active confirmed Problem Asthma (disorder) (166901084) Asthma, unspecified, unspecified status (493.90) Active confirmed Problem Sleep apnea (45708015) Unspecified sleep apnea (780.57) Active confirmed Problem Hypertension (92406247) Hypertension (401.9) Active confirmed Plan Of Treatment No Information Insurance Providers Payer Name Payer Address Payer Phone Subscriber Number Group Number Insured Name Patient Relationship to Insured Coverage Start Date Coverage End Date MEDICARE [address] [place] [id number] SEBASTIÁN GARCIA Self - patient is the [...]
--- OUTSIDE RECORDS SUMMARY | 2025-09-07 13:57 | XMS_ITS | Encounter Summary ---
Author Organization [employer] Address [address] [place] [address] 7t [place] [address] Care Team Providers Care Field Radio Technician Name Role Phone Shilpa Miller CNP Primary Care Provider [phone] Francheska Tucker Primary Care Provider [phone] Lei Thacker Unavailable Unavailable Sharmila Azar DO Primary Care Provider [phone] Inactive/Transferred Primary Care Provider Unava ilable Inactive/Transferred Primary Care Provider Unava ilable Encounter Details Date Type Department Care Team (Late st Contact Info) Description 01/31/2023 Abstract Pat [facility] [address] [place] [address] Shilpa Miller CNP [address] [place] [address] Social History Tobacco Use Types Packs/Day Years [...] filedocumented in this encounter Care Teams Field Radio Technician Relationship Specialty Start Date End Date Shilpa Miller CNP [address] [place] [address] PCP - General Family Medicine 10/16/22 10/24/23 Francheska Tucker FNP [address] [place] [address] PCP - General Family Medicine 10/25/23 11/01/24 Sharmila Azar DO [address] [place] [address] PCP - General Family Medicine 11/02/24 06/17/25 Inactive/Transferred PCP - General 06/18/25 06/18/25 Inactive/Transferred PCP - General 08/12/25 Lei Thacker Health Navigator 09/17/24 documented as of this encounter
--- OUTSIDE RECORDS SUMMARY | 2025-09-07 13:57 | XMS_ITS | Encounter Summary ---
Author Organization [employer] Address [address] [place] [address] 7 [place] [address] Care Team Providers Care Title I Paraprofessional Name Role Phone Francheska Tucker Primary Care Provider [phone] Lei Thacker Unavailable Unavailable Sharmila Azar DO Primary Care Provider [phone] Inactive/Transferred Primary Care Provider Unava ilable Inactive/Transferred Primary Care Provider Unava ilable Encounter Details Date Type Department Care Team (Late st Contact Info) Description 07/04/2024 Orders Only Pat [facility] [address] [place] [address] Francheska Tucker FNP [address] [place] [address] Social History Tobacco Use Types Packs/Day Years [...] documented as of this encounter Care Teams Title I Paraprofessional Relationship Specialty Start Date End Date Francheska Tucker FNP [address] [place] [address] PCP - General Family Medicine 10/25/23 11/01/24 Sharmila Azar DO [address] [place] [address] PCP - General Family Medicine 11/02/24 06/17/25 Inactive/Transferred PCP - General 06/18/25 06/18/25 Inactive/Transferred PCP - General 08/12/25 Lei Thacker Health Navigator 09/17/24 documented as of this encounter
--- OUTSIDE RECORDS SUMMARY | 2025-09-07 13:57 | XMS_ITS | Encounter Summary ---
Author Organization [employer] Address [address] [facility] 7t [place] [address] Care Team Providers Care Doughnut Fryer Name Role Phone Lei Thacker Unavailable Unavailable Inactive/Transferred Primary Care Provider Unava ilable Reason for Referral * Consultation (Routine) - Pending Review Specialty Diagnoses / Procedures Referred By Cristina coughlin Referred To Contact Endocrinology Diagnoses Low serum cortisol level Sharmila Azar DO [address] [place] [address] Phone: tel: fax: [facility] Endocrinology [address] [place], [place] Phone: tel: fax: Referral ID Status Reason Start Date Expiration Date Visits Requested Visits Authorized [id number] Pending Review Specialty Services Required 07/17/2025 07/17/2026 1 1 Encounter Details Date Type Department Care Team (Late st Contact Info) Description 07/17/2025 Results Follow-Up [facility] MEDICAL [address] [place] [address] Sharmila Azar DO [address] [place] [address] Cortisol, Total, Magnesium [id number], Sed Rate by Modified Lilibeth, Additional followed-up [...] Agency Comment Performed at: 01 - [facility] [address] [id number] Sign Installer: Megan Curry MD, Phone: [phone] us Sharmila Azar DO LAB BLOOD ORDERABLES Final Res ult [facility] 1 * Rheumatoid Arthritis (RA) Profile [[id number]] (07/20/2025 9:19 AM EDT) Rheumatoid Factor (RF) <10.0 <14.0 IU/mL [facility] 1 Anti-CCP Ab, IgG/IgA 3 0 - 19 units [facility] 1 Comment: Negative <20 Weak positive 20 - 39 Moderate positive 40 - 59 Strong positive >59 Blood Venous blood specimen / Unknown 07/20/2025 9:19 AM EDT 07/20/2025 Narrative Resulting Agency Comment Performed at: - [facility] [id number] Sign Installer: Megan Curry MD, Phone: [phone] [facility] LAB BLOOD ORDERABLES Final Res ult [facility] [...] Narrative Resulting Agency Comment Performed at: - [facility] [id number] Sign Installer: Megan Curry MD, Phone: [phone] [facility] LAB BLOOD ORDERABLES Final Res ult [facility] 1 documented in this encounter Visit Diagnoses Diagnosis Low serum cortisol level- Primary Arthralgia of both knees Lymphedema Other noninfectious lymphedema documented in this encounter Additional Health Concerns Assessment Noted Time PHQ-9 Depression Total Score: 6 06/22/20 25 2:22 PM EDT documented as of this encounter Care Teams Doughnut Fryer Relationship Specialty Start Date End Date Inactive/Transferred PCP - General 08/12/25 Lei Thacker Health Navigator 09/17/24 documented as of this encounter
--- OUTSIDE RECORDS SUMMARY | 2025-09-07 13:57 | XMS_ITS | Encounter Summary ---
Author Organization [employer] Address [address] [place] [address] 7 [place] [address] Care Team Providers Care Educational Director Name Role Phone Shilpa Miller CNP Primary Care Provider [phone] Francheska Tucker Primary Care Provider [phone] Lei Thacker Unavailable Unavailable Sharmila Azar DO Primary Care Provider [phone] Inactive/Transferred Primary Care Provider Unava ilable Inactive/Transferred Primary Care Provider Unava ilable Reason for Visit * Reason Comments Med Refill Encounter Details Date Type Department Care Team (Late st Contact Info) Description 07/25/2023 Refill [facility] MED[facility] [address] [place] [address] Shilpa Miller CNP [address] [place] [address] Hypothyroidism, unspecified Social History Tobacco Use Types [...] unspecified documented in this encounter Care Teams Educational Director Relationship Specialty Start Date End Date Shilpa Miller CNP [address] [place] [address] PCP - General Family Medicine 10/16/22 10/24/23 Francheska Tucker FNP [address] [place] [address] PCP - General Family Medicine 10/25/23 11/01/24 Sharmila Azar DO [address] [place] [address] PCP - General Family Medicine 11/02/24 06/17/25 Inactive/Transferred PCP - General 06/18/25 06/18/25 Inactive/Transferred PCP - General 08/12/25 Lei Thacker Health Navigator 09/17/24 documented as of this encounter
--- OUTSIDE RECORDS SUMMARY | 2025-09-07 13:57 | XMS_ITS | Encounter Summary ---
Author Organization [employer] Address [address] [facility] 7 [place] [address] Care Team Providers Care Rug Dyer Name Role Phone Lei Thacker Unavailable Unavailable Sharmila Azar Primary Care Provider [phone] Inactive/Transferred Primary Care Provider Unava ilable Inactive/Transferred Primary Care Provider Unava ilable Reason for Visit * Reason Comments Med Refill Encounter Details Date Type Department Care Team (Late st Contact Info) Description 11/09/2024 Refill Pat [facility] [address] [place] [address] Francheska Tucker FNP [address] [place] [address] Acquired hypothyroidism Social History Tobacco Use Types [...] t he electric, gas, oil or water [employer] threatened to shut off services in your [...] documented as of this encounter Care Teams Rug Dyer Relationship Specialty Start Date End Date DoeSharmila [address] [place] [address] PCP - General Family Medicine 11/02/24 06/17/25 Inactive/Transferred PCP - General 06/18/25 06/18/25 Inactive/Transferred PCP - General 08/12/25 Lei Thacker Health Navigator 09/17/24 documented as of this encounter
--- OUTSIDE RECORDS SUMMARY | 2025-09-07 13:57 | XMS_ITS | Encounter Summary ---
Author Organization [employer] Address [address] [facility] 7 [place] [address] Care Team Providers Care Briar Shop Supervisor Name Role Phone Lei Thacker Unavailable Unavailable Sharmila Azar DO Primary Care Provider [phone] Inactive/Transferred Primary Care Provider Unava ilable Inactive/Transferred Primary Care Provider Unava ilable Reason for Visit * Reason Comments Med Change Request Encounter Details Date Type Department Care Team (Late st Contact Info) Description 12/25/2024 Refill Pat [facility] [address] [place] [address] Sharmila Azar DO [address] [place] [address] Mild intermittent asthma without complication Social History [...] t he electric, gas, oil or water [email or web address] threatened to shut off services in your [...] Miscellaneous Notes * Telephone Encounter - Krysta cMclure LPN - 12/29/2024 11:48 AM EST duplicate documented in this encounter Plan of Treatment Not on file documented as of this encounter Visit Diagnoses Diagnosis Mild intermittent asthma without complication documented in this encounter Additional Health Concerns Assessment Noted Time PHQ-9 Depression Total Score: 10 024 7:39 AM EST documented as of this encounter Care Teams Briar Shop Supervisor Relationship Specialty Start Date End Date Sharmila Azar DO [address] [place] [address] PCP - General Family Medicine 11/02/24 06/17/25 Inactive/Transferred PCP - General 06/18/25 06/18/25 Inactive/Transferred PCP - General 08/12/25 Lei Thacker Health Navigator 09/17/24 documented as of this encounter
--- OUTSIDE RECORDS SUMMARY | 2025-09-07 13:57 | XMS_ITS | Encounter Summary ---
Author Organization [employer] Address [address] [place] [address] 7[address] [place] [address] Care Team Providers Care High School Assistant Principal Name Role Phone Francheska Tucker MADELEINE Primary Care Provider [phone] Lei Thacker Unavailable Unavailable Sharmila Azar DO Primary Care Provider [phone] Inactive/Transferred Primary Care Provider Unava ilable Inactive/Transferred Primary Care Provider Unava ilable Reason for Visit * Reason Comments Med Refill Encounter Details Date Type Department Care Team (Late st Contact Info) Description 03/21/2024 Refill [place] [facility] [address] [place] [id number] Shilpa Miller, MARIA C [address] [place] [address] Type 2 diabetes mellitus with diabetic polyneuropathy, with long-term current use of insulin ([facility]) Social History Tobacco Use [...] 03/24/2024 7:40 AM Shilpa De Leon CNP [email or web address] Total Score 21 03/24/2024 7:40 AM Shilpa [...] documented as of this encounter Care Teams High School Assistant Principal Relationship Specialty Start Date End Date Francheska Tucker FNP [address] [place] [address] PCP - General Family Medicine 10/25/23 11/01/24 Sharmila Azar DO [address] [place] [address] PCP - General Family Medicine 11/02/24 06/17/25 Inactive/Transferred PCP - General 06/18/25 06/18/25 Inactive/Transferred PCP - General 08/12/25 eLi Thacker Health Navigator 09/17/24 documented as of this encounter
--- OUTSIDE RECORDS SUMMARY | 2025-09-07 13:57 | XMS_ITS | Clinical Summary ---
Author Organization [employer] Address [address] [facility] 7[address] [place] [address] Care Team Providers Care Sheet Ironworker Name Role Phone Lei Thacker Unavailable Unavailable Inactive/Transferred Primary Care Provider Unava ilable Allergies Active Allergy Reactions Criticality Noted Date Comments [place] Oil Hives,Itching,Rash,S hortness of breath,Swelling,Whee zing High 11/05/1980 Other Reaction(s): Anaphylaxis Amoxicillin 10/11/2022 Other reaction(s): Unknown Aspirin 10/11/2022 Other reaction(s): sensitivity Azithromycin Rash Low 10/11/2022 Black [place] Flavoring Agent (Non-Screening) Hives,Itching,Shortn ess of breath,Swelling,Whee [...] mcg) by mouth before breakfast. 135 tablet 11/09/19 25 026 Active amLODIPine (Norvasc) 5 MG tabletIndications: Primary hypertension TAKE 1 TABLET DAILY 90 tablet 3 11/28/19 25 Active glucose blood (FreeStyle Precision Qasim Test) test stripIndications:T ype 2 diabetes mellitus with diabetic polyneuropathy, with long-term current use of insulin ([facility]) Use as directed to test blood sugars 3 times a day 100 strip 12 12/09/19 25 Active levalbuterol (Xopenex) 45 MCG/ACT inhalerIndications :Mild intermittent asthma without complication INHALE 2 PUFFS EVERY 4 HOURS IF NEEDED FOR WHEEZING. 15 g 12/25/19 25 Active nystatin (Mycostatin) 689436 UNIT/GM powderIndications: Soo infection of flexural skin Apply topically 2 times daily. 60 g 1 01/01/20 25 026 Active losartan (Cozaar) 100 MG tabletIndications: Essential (primary) hypertension TAKE 1 TABLET (100 MG) BY MOUTH ONCE PER DAY. 90 tablet 3 02/03/20 25 Active Basaglar KwikPen 100 UNIT/ML penIndications:Typ e 2 diabetes mellitus with diabetic polyneuropathy, with long-term current use of insulin ([facility]) Inject 82 Units under the skin [...] months, 03/22/20 11:17:00 AM EDT, Supply 03/22/20 Active docusate sodium (Colace) 100 MG capsuleIndications :Other constipation TAKE 1 CAPSULE BY MOUTH TWICE A DAY 60 capsule 1 03/09/20 25 Active Lancets (OneTouch Delica Plus [id number]) miscIndications:Ty pe 2 diabetes mellitus with diabetic polyneuropathy, with long-term current use of insulin ([facility]) CHECK GLUCOSE 3 TIMES A [...] diabetes mellitus with diabetic polyneuropathy ([facility]) INJECT 1 EACH UNDER THE SKIN 4 TIMES DAILY. 100 each 3 05/18/20 25 Active insulin aspart FlexPen (NovoLOG) 100 UNIT/ML penIndications:Typ e 2 diabetes mellitus with diabetic polyneuropathy, with long-term current use of insulin ([facility]) Inject 8-10 Units under the skin before breakfast, before lunch, and before evening meal. 30 mL 3 05/29/20 25 Active cholecalciferol (Vitamin D3) 25 MCG (1000 UT) tablet TAKE 1 TABLET (25 MCG) BY MOUTH IN THE MORNING 90 tablet 3 07/20/20 25 Active Active Problems Problem Noted Date Diagnosed Date Diabetic polyneuropathy carlos a luna with type 2 diabetes mellitus 10/01/2024 Overview [...] depression, PTSD. Engaged with Dom Carter at [facility] in [place] for medication. Sees Forrest at [facility] for therapy weekly on phone. Feeling symptoms are worsening. Starting to not want to leave the house and losing ghanshyam in doing things. Discussed options. Encouraged to discuss with therapist and prescriber. If feeling unheard by prescriber, encouraged to advocate for a different prescriber, but Ms. Dougherty is more comfortable getting a second opinion through [facility] provider at this time. Will refer to [...] ARB and STATIN. EYE: Dr. Segura in [place] DENTIST: Has false teeth. FBS 60-100. Will [...] pain. Will refer to weight management. Completed PATCH SETTER paperwork for Ismael. Assessment & Plan [...] Department Care Team Description 07/22/2025 Results Follow-Up [facility] MEDICAL [address] [place] [address] Sharmila Azar DO TSH with Reflex to Free T4 [[id number]] 07/21/2025 Results Follow-Up [facility] [address] [place] [address] Sharmila Azar DO CBC auto differential, Comprehensive Metabolic Panel [[id number]] 07/18/2025 Refill [facility] MEDICAL [address] [place] [address] Francheska Tucker FNP 07/17/2025 Orders Only [address] [address] Sharmila Azar DO Arthralgia of both knees (Primary Dx); Lymphedema; Abnormal CBC; ESR raised 07/17/2025 Results Follow-Up [address] [address] Sharmila Azar DO Cortisol, Total, Magnesium [id number], Sed Rate by Modified Westergren, Additional followed-up results: 4 07/10/[address] [address] PcpPat Unassigned [employer] Supp[employer] (Phone Number # / ) 07/08/[address] [address] Nancy Bridges LPN 07/02/[address] [address] PcpPatssnilay holder 06/22/2025 1:45 PM EDT Office Visit [address] [address] Sharmila Azar DO Primary osteoarthritis of both knees (Primary Dx); Nail dystrophy; Long toenail; Type 2 diabetes mellitus with diabetic polyneuropathy, with long-term current use of insulin ([facility]); Muscle weakness of lower extremity; Diabetic polyneuropathy associated with type 2 diabetes mellitus ([facility]); Acquired lymphedema; Transportation insecurity 06/20/2025 Travel 06/16/[address] [address] Que Pope CMA Pt-1 ride to [place] 06/14/2025 Travel from Last 3 Months Immunizations Immunization Administration [...] Stroke Father samm hawk Diabetes Mother vladimir martinez'enrique Heart disease Mother vladimir martinez'enrique Hypertension Mother vladimir hawk [place] Mother vladimir hawk after [place]. Stroke Mother vladimir hawk Thyroid disease Mother [...] polyneuropathy, with long-term current use of insulin ([facility]) SED RATE BY MODIFIED WESTERGREN Routine 07/16/2025 9:55 AM EDT Type 2 diabetes mellitus with diabetic polyneuropathy, with long-term current use of insulin ([facility]) MAGNESIUM Routine 07/16/2025 9:55 AM EDT Type 2 diabetes mellitus with diabetic polyneuropathy, with long-term current use of insulin ([facility]) CORTISOL, TOTAL Routine 07/16/2025 9:55 AM EDT Type 2 diabetes mellitus with diabetic polyneuropathy, with long-term current use of insulin ([facility]) POCT GLYCOSYLATED HEMOGLOBIN (HGB A1C) Routine 06/22/2025 [...] Narrative Resulting Agency Comment Performed at: - [address] [id number] Instructional Leader: Megan Curry MD, Phone: [phone] [facility] BLOOD ORDERABLES Final Res ult Performing Organization Address [facility] de Phone Number [facility] 1 * ACTH, Plasma (07/20/2025 9:20 AM EDT) [facility] ACTH, Plasma 23.4 7.2 - 63.3 pg/mL [facility] 1 Comment:ACTH reference inter oliver for samples collected between 7 and 10 AM. Blood Venous blood specimen / Unknown 07/20/2025 9:20 AM EDT 07/20/2025 Narrative Resulting Agency Comment Performed at: [address] [place] [id number] Instructional Leader: Megan Curry MD, Phone: [phone] [facility] LAB BLOOD ORDERABLES Final Res ult [facility] 1 * (ABNORMAL) Comprehensive Metabolic Panel [[id number]] (07/20/2025 9:20 AM EDT) Glucose 143(H) 70 [...] Agency Comment Performed at: 01 - [facility] [address] [id number] Instructional Leader: Megan Curry MD, Phone: [phone] Sharmila Azar DO LAB BLOOD ORDERABLES Final Res ult [facility] 1 * Rheumatoid Arthritis (RA) Profile [[id number]] (07/20/2025 9:19 AM EDT) Pathologist [facility] Rheumatoid Factor (RF) <10.0 <14.0 IU/mL [facility] 1 Anti-CCP Ab, IgG/IgA 3 0 - 19 units [facility] 1 Comment: Negative <20 Weak positive 20 - 39 Moderate positive 40 - 59 Strong positive >59 Blood Venous blood specimen / Unknown 07/20/2025 9:19 AM EDT 07/20/2025 Narrative Resulting Agency Comment Performed at: - [address] [id number] Instructional Leader: Megan Curry MD, Phone: [phone] [facility] LAB BLOOD ORDERABLES Final Res ult Performing Organization Address [facility]/ZIP Co de Phone Number [facility] 1 * ROEL Screen,IFA, with Reflex to Titer and Pattern (07/20/2025 9:19 AM EDT) Pathologist [facility] ROEL Screen, IFA Negative [facility] 1 Comment: Negative <1:80 Borderline 1:80 Positive >1:80 ICAP nomenclature: AC-0 For more information about Hep-2 cell patterns use ANApatterns.org, the official website for the International Consensus on Antinuclear Antibody (ROEL) Patterns (ICAP). Blood Venous blood specimen / Unknown 07/20/2025 9:19 AM EDT 07/20/2025 Narrative Resulting Agency Comment Performed at: [address] [id number] Instructional Leader: Megan Curry MD, Phone: [phone] [facility] LAB BLOOD ORDERABLES Final Res ult [facility] * (ABNORMAL) TSH with Reflex to Free T4 [[id number]] (07/20/2025 9:18 AM EDT) Pathologist [facility] TSH 0.293(L) 0.450 - 4.500 uIU/mL [facility] 1 Blood Venous blood specimen / Unknown 07/20/2025 9:18 AM EDT 07/20/2025 Narrative Resulting Agency Comment Performed at: [address] [place] [id number] Instructional Leader: Megan Curry MD, Phone: [phone] Francheska Tucker [facility] LAB BLOOD ORDERABLES Final Resul t Performing Organization Address City/[facility]/ZIP Co de Phone Number [facility] 1 * (ABNORMAL) Sed Rate by Modified Westergren (07/16/2025 9:55 AM EDT) Sed Rate By Modified Westergren 84(H) 0 - 40 mm/hr [facility] 1 Blood Venous blood specimen / Unknown 07/16/2025 9:55 AM EDT 07/16/2025 Narrative Resulting Agency Comment Performed at: - [address] [id number] Instructional Leader: Megan Curry MD, Phone: [phone] [facility] LAB BLOOD ORDERABLES Final Res ult Performing Organization Address [facility]/ZIP Co de Phone Number [facility] 1 * (ABNORMAL) C-reactive Protein (07/16/2025 9:55 AM EDT) C-Reactive Protein 23(H) 0 - 10 mg/L [facility] 1 Blood Venous blood specimen / Unknown 07/16/2025 9:55 AM EDT 07/16/2025 Narrative Resulting Agency Comment Performed at: - [address] [id number] Instructional Leader: Megan Curry MD, Phone: [phone] [facility] LAB BLOOD ORDERABLES Final Res ult [facility] * Magnesium [id number] (07/16/2025 9:55 AM EDT) Magnesium 1.9 1.6 - 2.3 mg/dL [facility] 1 Blood Venous blood specimen / Unknown 07/16/2025 9:55 AM EDT 07/16/2025 Narrative Resulting Agency Comment Performed at: - [address] [id number] Instructional Leader: Megan Curry MD, Phone: [phone] [facility] LAB BLOOD ORDERABLES Final Res ult Performing Organization Address [facility] Co de Phone Number [facility] [...] 07/16/2025 Narrative Resulting Agency Comment Performed at: [address] [id number] Instructional Leader: Megan Curry MD, Phone: [phone] [facility] LAB BLOOD ORDERABLES Final Res ult Performing Organization Address [facility] de Phone Number [facility] 1 * (ABNORMAL) POCT glycosylated hemoglobin (Hgb A1c) (06/22/2025 2:22 PM EDT) Hemoglobin A1C 7.1(A) 4.0 - 5.7 % Blood Capillary blood specimen / Unknown 06/22/2025 2:22 PM EDT [facility] POINT OF CARE TEST ENTER/EDIT ORDERABLES Final Result * BI Mammogram Screening Tomosynthesis Bilateral (04/25/2025 1:53 PM EDT) Anatomical Region Laterality Modality Breast Bilateral Mammography 04/25/2025 1:53 PM EDT Narrative 04/27/2025 4:28 PM EDT PROCEDURE: MM Digital Mammo Screening INDICATION: Screening for breast cancer. No known palpable abnormalities. COMPARISON: [facility] dating back to 01/14/2013. TECHNIQUE: [...] (Negative) Lay letter mailed to patient WSN: [id number] Ordering Physician: Sharmila Azar Dictated By: Kayleigh Hall MD, I Dictated Date/Time: 04/27/25 4:25 pm Reviewed By: Kayleigh Hall MD, I Signed By: Kayleigh Hall MD, I Signed Date/Time: 04/27/25 4:25 pm Transcribed By: GITA Recycling Technician Date/Time: 04/27/25 4:22 pm Birads: Procedure Note Donotuseinterpreter, Image - 04/27/2025 PROCEDURE: MM Digital Mammo Screening INDICATION: Screening for breast cancer. No known palpableabnormalities. COMPARISON: [facility] dating back to 01/14/2013. TECHNIQUE: [...] (Negative) Lay letter mailed to patient WSN: [id number] Ordering Physician: Sharmila Azar Dictated By: Kayleigh Hall MD, I Dictated Date/Time: 04/27/25 4:25 pm Reviewed By: Kayleigh Hall MD, I Signed By: Kayleigh Hall MD, I Signed Date/Time: 04/27/25 4:25 pm Transcribed By: GITA Recycling Technician Date/Time: 04/27/25 4:22 pm Birads: [facility] IMG BI PROCEDURES Final Result * Albumin/Creatinine [...] AM EST Performed at: 01 - [facility] [place] [id number] Instructional Leader: Megan Curry MD, Phone: [phone] [facility] LAB URINE ORDERABLES Final Res ult [facility] * Diabetes Eye Exam (05/28/2024 5:27 PM EDT) Historical Provider HEALTH MAINTENANCE Final Result * Lipid panel (12/11/2023 12:51 PM EST) Cholesterol, Total 142 (<200) MG/DL [facility] Triglyceride (mg/dL) in Serum/Plasma 89 (<150) MG/DL [facility] HDL Cholesterol 67 (>39) MG/DL [facility] LDL Cholesterol, Calculated 57 (0-130) MG/DL [facility] Non HDL Chol. (LDL+VLDL) 75 (<160) MG/DL [facility] Comment: Testing performed or reported by [facility], a Service of [facility], [address] [place] [id number] Rojas Garza MD, Core Fitter [facility]# [id number] Blood Venous blood specimen / Unknown 12/11/2023 12:51 PM EST 12/11/2023 12:52 PM EST us Francheska Caitlin DERMATOLOGY PROCEDURAL PHYSICIAN LAB BLOOD ORDERABLES Final Resul t Performing Organization Address [facility] de Phone Number [facility] [address] [place] [address] * Pap Smear (07/17/2023 12:00 AM EDT) Swab Historical Provider MD LAB CYTOLOGY ORDERABLES F inal Result Performing Organization Address [facility] de Phone Number [facility] [address] [place] [address] * Hm Colonoscopy (12/30/2020) Colonoscopy repeat in 10 yeasr Historical Provider MD HEALTH MAINTENANCE Final Result * -Hepatitis C Antibody Test (12/14/2020 7:58 AM EST) ANTI-HEPATITIS C NEGATIVE (NEG) [facility] Comment: Reference range: Negative This test was performed on the Leo Office Clerk Assistant immunoassay system. 12/14/2020 7:58 AM EST Shilpa Miller PROPERTY DAMAGE CLAIMS ADJUSTOR HISTORICAL/NON ORDERABLE LABS Final Result Performing Organization Address [facility] de Phone Number [facility] [address] [place] [address], * -HIV AB-AG 4TH GENERATION (12/14/2020 7:58 AM EST) RESULT 4TH GEN HIV AB-AG NEGATIVE (NEG) [facility] Comment: Negative for antibodies to HIV 1 and HIV 2 and P24 antigen. Reference range: Negative Additional note: Written patient authorization is required for each separate release of this test result. This test was performed on the Leo Office Clerk Assistant immunoassay system. 12/14/2020 7:58 AM EST Shilpa Miller PROPERTY DAMAGE CLAIMS ADJUSTOR LAB BLOOD ORDERABLES Final Re sult Performing Organization Address [facility] Co de Phone Number [facility] [address] [place] [id number], from Last 3 Months or Most Recently Relevant to Health Maintenance Insurance MEDICARE [facility] Advance Directives Documents on File Type Date Recorded Patient Water Resource Engineering Specialist Expl anation HealthCare Proxy 10/24/2023 12:48 PM HCP Care Teams Sheet Ironworker Relationship Specialty Start Date End Date Inactive/Transferred PCP - General 08/12/25 Lei Thacker Health Navigator 09/17/24
--- OUTSIDE RECORDS SUMMARY | 2025-09-07 13:57 | XMS_ITS | Encounter Summary ---
Author Organization [employer] Address [address] [place] [address] Care Team Providers Care Virtual Assistant Name Role Phone Lei Thacker Unavailable Unavailable King Sharmila Primary Care Provider [phone] Inactive/Transferred Primary Care Provider Unava ilable Inactive/Transferred Primary Care Provider Unava ilable Encounter Details Date Type Department Care Team (Late st Contact Info) Description 11/21/2024 Orders Only [facility] MEDICAL [address] [place] [address] Provider, MD Sharad Social History Tobacco Use [...] * HM PAP/HPV (07/17/2023 8:01 AM EDT) Historical Provider HEALTH MAINTENANCE Final Result documented in this encounter Visit Diagnoses Not on filedocumented in this encounter Additional Health Concerns Assessment Noted Time PHQ-9 Depression Total Score: 10 024 7:39 AM EST documented as of this encounter Care Teams Virtual Assistant Relationship Specialty Start Date End Date Sharmila Azar DO [address] [place] [address] PCP - General Family Medicine 11/02/24 06/17/25 Inactive/Transferred PCP - General 06/18/25 06/18/25 Inactive/Transferred PCP - General 08/12/25 Lei Thacker Health Navigator 09/17/24 documented as of this encounter
--- OUTSIDE RECORDS SUMMARY | 2025-09-07 13:57 | XMS_ITS | Encounter Summary ---
Author Organization [employer] Address [address] [place] [address] 7 [place] [address] Care Team Providers Care Audit Lead Name Role Phone Francheska Tucker Primary Care Provider [phone] Lei Thacker Unavailable Unavailable Sharmila Azar DO Primary Care Provider [phone] Inactive/Transferred Primary Care Provider Unava ilable Inactive/Transferred Primary Care Provider Unava ilable Reason for Visit * Reason Comments Med Change Request Encounter Details Date Type Department Care Team (Late st Contact Info) Description 2024 Oneyda Stewart [facility] MEDICAL [address] [place] [id number] Francheska Tucker FNP [address] [place] [address] Type 2 diabetes mellitus with diabetic polyneuropathy, with long-term current use of insulin ([facility]) Social History Tobacco Use Types [...] documented as of this encounter Care Teams Audit Lead Relationship Specialty Start Date End Date Francheska Tucker FNP [address] [place] [address] PCP - General Family Medicine 10/25/23 11/01/24 Sharmila Azar DO [address] [place] [address] PCP - General Family Medicine 11/02/24 06/17/25 Inactive/Transferred PCP - General 06/18/25 06/18/25 Inactive/Transferred PCP - General 08/12/25 Lei Thacker Health Navigator 09/17/24 documented as of this encounter
--- OUTSIDE RECORDS SUMMARY | 2025-09-07 13:57 | XMS_ITS | Encounter Summary ---
Author Organization [employer] Address [address] [place] [address] Care Team Providers Care Senior Systems Software Engineer Name Role Phone Lei Thacker Unavailable Unavailable Inactive/Transferred Primary Care Provider Unava ilable Encounter Details Date Type Department Care Team (Latest Contact Info) Description 07/21/2025 Results Follow-Up [facility] MEDICAL [address] [place] [address] Sharmila Azar DO [address] [place] [address] CBC auto differential, Comprehensive Metabolic Panel [[id number]] Social History Tobacco Use Types Packs/Day Years [...] r Schedule B Type Natriuretic Peptide (BNP) 301175 Lab Routine Low serum albumin Lymphedema Mild [...] documented as of this encounter Care Teams Senior Systems Software Engineer Relationship Specialty Start Date End Date Inactive/Transferred PCP - General 08/12/25 Lei Thacker Health Navigator 09/17/24 documented as of this encounter
--- OUTSIDE RECORDS SUMMARY | 2025-09-07 13:58 | XMS_ITS | Encounter Summary ---
Author Organization [employer] Address [address] [place] [address] [address] [place] [address] Care Team Providers Care Payment Specialist Name Role Phone Lei Thacker Unavailable Unavailable DoeSharmila Primary Care Provider [phone] Inactive/Transferred Primary Care Provider Unava ilable Inactive/Transferred Primary Care Provider Unava ilable Reason for Visit * Reason Onset Date Comments Med Refill 11/05/2024 Encounter Details Date Type Department Care Team (Late st Contact Info) Description 11/05/2024 Refill Pat [facility] MEDICAL [address] [place] [address] Shilpa Miller, OUTBOUND SALES CONSULTANT [address] [place] [address] Type 2 diabetes mellitus with diabetic polyneuropathy [...] documented as of this encounter Care Teams Payment Specialist Relationship Specialty Start Date End Date Sharmila Azar DO [address] [place] [address] PCP - General Family Medicine 11/02/24 06/17/25 Inactive/Transferred PCP - General 06/18/25 06/18/25 Inactive/Transferred PCP - General 08/12/25 Lei Thacker Health Navigator 09/17/24 documented as of this encounter
--- OUTSIDE RECORDS SUMMARY | 2025-09-07 13:58 | XMS_ITS | Encounter Summary ---
Author Organization [employer] Address [address] [place] [address] [address] [place] [address] Care Team Providers Care Rotary Driller Prospecting Name Role Phone Shilpa Miller CNP Primary Care Provider [phone] Francheska Tucker Primary Care Provider [phone] Lei Thacker Unavailable Unavailable Sharmila Azar DO Primary Care Provider [phone] Inactive/Transferred Primary Care Provider Unava ilable Inactive/Transferred Primary Care Provider Unava ilable Encounter Details Date Type Department Care Team (Late st Contact Info) Description 10/27/2022 Abstract Pat [facility] MEDICAL [address] [place] [address] Shilpa Miller CNP [address] [place] [address] Social History Tobacco Use Types Packs/Day Years [...] on filedocumented in this encounter Care Teams Rotary Driller Prospecting Relationship Specialty Start Date End Date Shilpa Miller CNP [address] [place] [address] PCP - General Family Medicine 10/16/22 10/24/23 Francheska Tucker FNP [address] [place] [address] PCP - General Family Medicine 10/25/23 11/01/24 Sharmila Azar DO [address] [place] [address] PCP - General Family Medicine 11/02/24 06/17/25 Inactive/Transferred PCP - General 06/18/25 06/18/25 Inactive/Transferred PCP - General 08/12/25 Lei Thacker Health Navigator 09/17/24 documented as of this encounter
--- OUTSIDE RECORDS SUMMARY | 2025-09-07 13:58 | XMS_ITS | Encounter Summary ---
Author Organization [employer] Address [address] [place] [address] 7 [place] [address] Care Team Providers Care Wharf Laborer Name Role Phone Justin Tuckeranda MADELEINE Primary Care Provider Lei Thacker Unavailable Unavailable Sharmila Azar DO Primary Care Provider [phone] Inactive/Transferred Primary Care Provider Unava ilable Inactive/Transferred Primary Care Provider Unava ilable Reason for Visit * Reason Comments Med Change Request Encounter Details Date Type Department Care Team (Late st Contact Info) Description 01/16/2024 Oneyda Stewart [facility] [address] [place] [id number] Amira Singh FNP Social History Tobacco Use [...] RX filled out yesterday and faxed to [facility] [employer] [place] documented in this encounter Plan of Treatment Not on file documented as of this encounter Visit Diagnoses Not on filedocumented in this encounter Care Teams Wharf Laborer Relationship Specialty Start Date End Date Francheska Tucker FNP [address] [facility] [place] [address] PCP - General Family Medicine 10/25/23 11/01/24 Sharmila Azar DO [address] [place] [address] PCP - General Family Medicine 11/02/24 06/17/25 Inactive/Transferred PCP - General 06/18/25 06/18/25 Inactive/Transferred PCP - General 08/12/25 Lei Thacker Health Navigator 09/17/24 documented as of this encounter
--- OUTSIDE RECORDS SUMMARY | 2025-09-07 13:58 | XMS_ITS | Encounter Summary ---
Author Organization [employer] Address [address] [place] [address] 7 [place] [address] Care Team Providers Care Telesales Professional Name Role Phone Shilpa Miller CNP Primary Care Provider [phone] Francheska Tucker Primary Care Provider [phone] Lei Thacker Unavailable Unavailable Sharmila Azar DO Primary Care Provider [phone] Inactive/Transferred Primary Care Provider Unava ilable Inactive/Transferred Primary Care Provider Unava ilable Encounter Details Date Type Department Care Team (Late st Contact Info) Description 10/26/2022 Abstract Pat [facility] [address] [place] [address] Shilpa Miller CNP [address] [place] [address] Social History Tobacco Use Types Packs/Day Years [...] Result * Lipid Panel, Standard (06/06/2022) Pathologist [facility] Triglycerides 98 40 - 160 mg/dL Cholesterol 138 0 - 200 mg/dL HDL Cholesterol 60 35 - 70 mg/dL LDL Cholesterol 58 mg/dL Blood Venous blood specimen / Unknown Historical Provider LAB BLOOD ORDERABLES Layla l Result * Mammography (12/25/2021) Pathologist [facility] Mammogram BI RADS: 2 Benign Anatomical Region Laterality Modality Other [facility] Provider HEALTH MAINTENANCE Final Result documented in this encounter Visit Diagnoses Not on filedocumented in this encounter Care Teams Telesales Professional Relationship Specialty Start Date End Date Shilpa Miller CNP [address] [place] [address] PCP - General Family Medicine 10/16/22 10/24/23 Francheska Tucker FNP [address] [place] [address] PCP - General Family Medicine 10/25/23 11/01/24 Sharmila Azar DO [address] [place] [address] PCP - General Family Medicine 11/02/24 06/17/25 Inactive/Transferred PCP - General 06/18/25 06/18/25 Inactive/Transferred PCP - General 08/12/25 Lei Thacker Health Navigator 09/17/24 documented as of this encounter
--- OUTSIDE RECORDS SUMMARY | 2025-09-07 13:58 | XMS_ITS | Data Portability ---
Author Organization [facility], [facility] Address [address] [place] [address] Care Team Providers Care Big Data Admin Name Role Phone LIANNA PANCHAL Primary Care [...] Address Organization Details Recorded Time No complaints [id number] Active Status : 'I'; Not Available [facility] 4 09:19:03 Problem Notes None recorded. Procedures Surgical History Date Name Laterality Status Provider Name and Address Organization Details Recorded Time 5 Knee Kenalog 40 1cc Injection, Bilateral completed Robert Conde PA-C [address], [place], [address], [facility] 07/15/2025 16:42:15 5 Knee Kenalog 40 1cc Injection, Bilateral completed Robert Conde PA-C [address], [place], [address], [facility] 04/01/2025 07:56:50 5 Knee Kenalog 40 1cc Injection, Bilateral completed Robert Conde PA-C [address], [place], [address], [facility] 12/31/2024 15:24:25 4 Knee Kenalog 40 1cc Injection, Bilateral completed HERMINIO Ribeiro-C [address], [place], [address], [facility] 10/08/2024 13:43:12 4 Knee Kenalog 40 1cc Injection, Bilateral completed Robert Conde PA-C [address], [place], [address], [facility] 07/09/2024 12:37:00 4 Knee Kenalog 40 1cc Injection, Bilateral completed Robert Conde PA-C [address], [place], [address], [facility] 03/28/2024 08:24:20 Imaging Results None recorded. Procedure Notes None recorded. Medical Equipment None Reported. Allergies Allergen ID Allergen Name Allergen Category Reaction Reaction Severity Criticality Documentation Date Start Date Code Code System Note Provider Name and Address Organization Details Recorded Time 608670 Product containin g angiotens in-conver ting enzyme inhibitor (product) medicatio n Not available Not available Not available 03/27/2024 93295 009 SNOMED RODOLFO JAMES [facility] 4 14:45:09 064542 Bactrim medicatio n Not available Not available Not available 03/27/2024 89096 9 RxNorm RODOLFO QUINONEZY [facility] 4 14:45:49 327495 metformin medicatio n Not available Not available Not available 03/27/2024 6809 RxNorm RODOLFO JAMES [facility] 4 14:46:00 123147 Substance with sulfonami de structure and antibacte rial mechanism of action (substanc e) medicatio n Not available Not available Not available 03/27/2024 95232 8003 SNOMED RODOLFO QUINONEZY [facility] 4 14:46:16 692594 latex environme nt,medica tion Not available Not available Not available 03/27/2024 61914 91 RxNorm RODOLFO JAMES [facility] [place] [facility] [place] 4 14:46:24 413592 Lyrica medicatio n Not available Not available Not available 10/08/2024 76403 1 RxNorm DOMENIC GUILLEN [facility] [place] [facility] [place] 4 14:50:46 15290 Product containin g penicilli n (product) medicatio n Not available Not available Not available 01/07/20242010 51131 8001 SNOMED Aller gyRea ction : 'Skin React ion, Nause a/Vom iting /Diar gustavo' ; Not Available [facility] 4 15:13:20 61434 amoxicill in trihydrat e medicatio n Not available Not available Not available 01/07/20242010 84983 8 RxNorm Aller gyRea ction : 'Skin React ion'; Not Available [facility] 4 15:13:20 Medications Name Sig Start Date [...] Updated DateTime 12/31/2024 157.48 cm DOMENIC GUILLEN [facility] 12/31/2024 14:28:54 Date Recorded Body height Provider Name an d Address Organization Details Last Updated DateTime 04/01/2025 157.48 cm DOMENIC GUILLEN [facility] 04/01/2025 15:30:39 Date Recorded Body height Body mass index (BMI) Body weight Heart rate Provider Name and Address Organization Details Last Updated DateTime 07/09/2024 157.48 cm 69.5 kg/m2 489950.1 g 6 /min KENNY TORRES [facility] 07/09/2024 14:24:15 Date Recorded Body height Provider Name an d Address Organization Details Last Updated DateTime 07/15/2025 157.48 cm DOMENIC GUILLEN [facility] 07/15/2025 14:55:05 Date Recorded Body height Provider Name an d Address Organization Details Last Updated DateTime 10/08/2024 157.48 cm DOMENIC GUILLEN [facility] 10/08/2024 14:49:10 Social History None recorded. Functional Status None recorded. Mental Status None recorded. Family History Nothing Reported. Medical History Condition Response Allergies/Hayfever N Coronary Artery Disease N Anxiety/Depression N Breathing or lung disorders Y Emphysema N Nerve Disorders N Thyroid Problems Y COPD N Pacemaker N Anemia N Kidney/Bladder Problems N Vascular Disease N Heart Trouble N Heart Attack (MD) N Gastrointestinal Disease N Cholesterol Y Diabetes [...] ICD10 Code Diagnosis IMO Codes Diagnosis Note [id number] LEEANN Riberio [address] [place] [address] 03/27/2024 13:58:04 04/16/2024 13:21:33 Pain of right knee joint 0772697767 84590 M25.561 Osteoarthr itis of left knee joint 2454956472 34455 M17.12 [id number] Robert Conde PA-C [place] [address] [place] [address] 07/09/2024 14:07:17 07/30/2024 11:29:18 Osteoarthritis of left knee joint 7691097679 76996 M17.12 Pain of ri ght knee joint 5222182276 95468 M25.894 [id number] Robert Conde PA-C [place] [address] [place] [address] 10/08/2024 14:46:36 11/03/2024 13:40:49 Osteoarthritis of left knee joint 6737332824 63836 M17.12 3564114 Osteoarthr itis of right knee joint 5289927237 M17.11 9961247 [id number] LEEANN Ribeiro Clinical [address] [place] [address] 12/31/2024 14:17:58 01/12/2025 12:14:57 Osteoarthritis of left knee joint 0812301638 08186 M17.12 2354406 Osteoarthr itis of right knee joint 5216082621 M17.11 3962238 [id number] LEEANN Ribeiro Clinical [address] [place] [address] 04/01/2025 15:11:57 04/08/2025 14:00:33 Osteoarthritis of left knee joint 7095873823 89820 M17.12 7015600 Osteoarthr itis of right knee joint 8861942360 M17.11 7588113 [id number] LEEANN Ribeiro Clinical [address] [place] [address] 07/15/2025 14:51:53 07/23/2025 15:49:13 Osteoarthritis of left knee joint 9704938073 36123 M17.12 2866532 Osteoarthr itis of right knee joint 8195034557 M17.11 1461509 Health Concerns Section Related Observation LastModified by Organization Detai ls LastModified Time None Recorded Concern Status LastModified by Organization Details LastModified Time None Recorded Advance Directives Directive None Recorded Payers Insurance Date Sequence Insurance Name Policy Number Policy Palafox Covered Member ID Palafox Member ID Guarantor Name 07/15/2025 1 [place] [employer] Elyssa Silva Frohna [id number] Elyssa Silva Frohna 07/15/2025 2 [place] [facility] Elyssa A Frohna [id number] Elyssa Silva Farhat Notes Date Note Type Note Provider Name [...] continued conservative treatment. Robert Conde PA-C [address], [place], [address], [facility] 07/14/2024 07:26:56 [...] continued conservative treatment. Robert Conde PA-C [address], [place], [address], [facility] 10/08/2024 15:02:32 [...] continued conservative treatment. Robert Conde PA-C [address] [facility] [address], [place], [address], [facility] 12/31/2024 15:24:59 04/01/2025 text/html [...] continued conservative treatment. Robert Conde PA-C [address] [facility] [address], [place], [address], [facility] 04/01/2025 16:26:04 07/15/2025 text/html [...] pneumatic compression devices. Robert Conde PA-C [address] [facility] [address], [place], [address], [facility] 07/15/2025 16:42:38 OBGyn Episode No OBEpisode recorded.
--- OUTSIDE RECORDS SUMMARY | 2025-09-07 13:58 | XMS_ITS | Encounter Summary ---
Author Organization [employer] Address [address] [place] [address] 7t [place] [address] Care Team Providers Care Coloring Room Worker Name Role Phone Shilpa Miller CNP Primary Care Provider [phone] Francheska Tucker Primary Care Provider [phone] Lei Thacker Unavailable Unavailable Sharmila Azar DO Primary Care Provider [phone] Inactive/Transferred Primary Care Provider Unava ilable Inactive/Transferred Primary Care Provider Unava ilable Encounter Details Date Type Department Care Team (Late st Contact Info) Description 11/30/[address] [facility] [address] [place] [address] Shilpa Miller CNP [address] [place] [address] Social History Tobacco Use Types Packs/Day Years [...] problems? Question Answer Date of Assessment Author Liz interest or pleasure in doing things Not at all 12/01/2022 2:16 PM EST Mark, Alison PJ Feeling down, depressed, or hopeless Not at all 12/01/2022 2:16 PM EST Mark AlisonPJ Patient Health Questionnaire -2 Score 0 12/01/2022 2:16 PM EST Mark AlisonPJ alex documented as of this encounter Plan of Treatment Not on file documented as of this encounter Visit Diagnoses Not on filedocumented in this encounter Care Teams Coloring Room Worker Relationship Specialty Start Date End Date Shilpa Miller CNP [address] [facility] [place] [address] PCP - General Family Medicine 10/16/22 10/24/23 Francheska Tucker FNP [address] [place] [address] PCP - General Family Medicine 10/25/23 11/01/24 Sharmila Azar DO 73 [facility] [place] [address] PCP - General Family Medicine 11/02/24 06/17/25 Inactive/Transferred PCP - General 06/18/25 06/18/25 Inactive/Transferred PCP - General 08/12/25 Lei Thacker Health Navigator 09/17/24 documented as of this encounter
--- OUTSIDE RECORDS SUMMARY | 2025-09-07 13:58 | XMS_ITS | Encounter Summary ---
Author Organization [employer] Address [address] [place] [address] 7t [place] [address] Care Team Providers Care Director Group Sales Name Role Phone Shilpa Miller CNP Primary Care Provider [phone] Francheska Tucker Primary Care Provider Lei Thacker Unavailable Unavailable Sharmila Azar DO Primary Care Provider [phone] Inactive/Transferred Primary Care Provider Unava ilable Inactive/Transferred Primary Care Provider Unava ilable Encounter Details Date Type Department Care Team (Late st Contact Info) Description 11/30/2022 Abstract Pat [facility] [address] [place] [address] Shilpa Miller CNP [address] [place] [address] Social History Tobacco Use Types Packs/Day Years [...] filedocumented in this encounter Care Teams Director Group Sales Relationship Specialty Start Date End Date Shilpa Miller CNP [address] [place] [address] PCP - General Family Medicine 10/16/22 10/24/23 Francheska Tucker FNP [address] [place] [address] PCP - General Family Medicine 10/25/23 11/01/24 Sharmila Azar DO 73 [place] [address] PCP - General Family Medicine 11/02/24 06/17/25 Inactive/Transferred PCP - General 06/18/25 06/18/25 Inactive/Transferred PCP - General 08/12/25 Lei Thacker Health Navigator 09/17/24 documented as of this encounter
--- OUTSIDE RECORDS SUMMARY | 2025-09-07 13:58 | XMS_ITS | Encounter Summary ---
Author Organization [employer] Address [address] [place] [address] 7[address] [place] [address] Care Team Providers Care Professional Sports Scout Name Role Phone Shilpa Miller MARIA C Primary Care Provider [phone] Francheska Tucker Primary Care Provider [phone] Lei Thacker Unavailable Unavailable Sharmila Azar DO Primary Care Provider [phone] Inactive/Transferred Primary Care Provider Unava ilable Inactive/Transferred Primary Care Provider Unava ilable Encounter Details Date Type Department Care Team (Late st Contact Info) Description 12/01/2022 Orders Only [facility] [address] [place] [address] Avelina Fulton FNP Type 2 diabetes mellitus with diabetic polyneuropathy, with long-term current use of insulin ([facility]) (Primary Dx) Social History Tobacco [...] things Not at all 12/01/2022 2:16 PM DANILO RoblesftsAlison RMRicardo Feeling down, depressed, or hopeless Not at all 12/01/2022 2:16 PM DANILO RoblesftsAlison RMRicardo Patient Health Questionnaire -2 Score 0 12/01/2022 2:16 PM DANILO RoblesftsAlison PJ documented as of this encounter Plan of Treatment Not on file documented as of this encounter Visit Diagnoses Diagnosis Type 2 diabetes mellitus with diabetic polyneuropathy, with long-term current use of insulin (HCC)- Primary documented in this encounter Care Teams Professional Sports Scout Relationship Specialty Start Date End Date Shilpa Miller CNP [address] [place] [address] PCP - General Family Medicine 10/16/22 10/24/23 Francheska Tucker FNP [address] [place] [address] PCP - General Family Medicine 10/25/23 11/01/24 Sharmila Azar DO [address] [place] [address] PCP - General Family Medicine 11/02/24 06/17/25 Inactive/Transferred PCP - General 06/18/25 06/18/25 Inactive/Transferred PCP - General 08/12/25 Lei Thacker Health Navigator 09/17/24 documented as of this encounter
[2025-09-07 14:57] LABS: Free T4 (Free Thyroxine) 1.40 ng/dL (0.71-1.85)
== END 2025-09-07 11:03 | disposition home or self-care (01) ==
LOC: HO.10HDL 11:02
PROVIDERS: Visit Provider Student in an Organized Health Care Education/Training Program
DX: E06.3 Autoimmune thyroiditis (principal)
CPT/HCPCS: 36415; 84439; 84443

== ENCOUNTER 2025-10-20 09:15 | Outpatient (REF) | payer MEDICARE, MEDICAID, SELFPAY ==
--- OUTSIDE RECORDS SUMMARY | 2025-10-20 12:52 | XMS_ITS | Data Portability ---
Author Organization [facility], [facility] Address [address] [place] [address] Care Team Providers Care Bonding Molder Name Role Phone LIANNA PANHCAL Primary Care Provider [phone] Assessment No assessment recorded. Plan of Treatment Reminders Order Date Submit Date Provider Last Modified By Organization Details Last Modified Time Details Appointments RECHECK 15 2025 02:30P M Robert Conde PA-C Not available Not [...] Address Organization Details Recorded Time No complaints [id number] Active Status : 'I'; Not Available [facility] 4 09:19:03 Problem Notes None recorded. Procedures Surgical History Date Name Laterality Status Provider Name and Address Organization Details Recorded Time 5 Knee Kenalog 40 1cc Injection, Bilateral completed Robert Conde PA-C [address], [place], [address], [facility] 10/20/2025 12:06:29 5 Knee Kenalog 40 1cc Injection, Bilateral completed Robert Conde PA-C [address], [place], [address], [facility] 07/15/2025 16:42:15 5 Knee Kenalog 40 1cc Injection, Bilateral completed Robert Conde PA-C [address], [place], [address], [facility] 04/01/2025 07:56:50 5 Knee Kenalog 40 1cc Injection, Bilateral completed Robert Elton, PA-C [address], [place], [address], [facility] 12/31/2024 15:24:25 4 Knee Kenalog 40 1cc Injection, Bilateral completed Robert Elton, PA-C [address], [place], [address], [facility] 10/08/2024 13:43:12 4 Knee Kenalog 40 1cc Injection, Bilateral completed Robert Elton, PA-C [address], [place], [address], [facility] 07/09/2024 12:37:00 4 Knee Kenalog 40 1cc Injection, Bilateral completed Robertluigi Vegaa, PA-C [address], [place], [address], [facility] 03/28/2024 08:24:20 Imaging Results None recorded. Procedure Notes None recorded. Medical Equipment None Reported. Allergies Allergen ID Allergen Name Allergen Category Reaction Reaction Severity Criticality Documentation Date Start Date Code Code System Note Provider Name and Address Organization Details Recorded Time 051296 Product containin g angiotens in-conver ting enzyme inhibitor (product) medicatio n Not available Not available Not available 03/27/2024 40624 009 SNOMED RODOLFO JAMES [facility], [facility] 14:45:09 427812 Bactrim medicatio n Not available Not available Not available 03/27/2024 04656 9 RxNorm RODOLFO JAMES [facility], [facility] 14:45:49 908531 metformin medicatio n Not available Not available Not available 03/27/2024 6809 RxNorm RODOLFO JAMES [facility], [facility] 14:46:00 086859 Substance with sulfonami de structure and antibacte rial mechanism of action (substanc e) medicatio n Not available Not available Not available 03/27/2024 41051 8003 SNOMED RODOLFO fernandes [place] [facility] [place] [facility] 4 14:46:16 437876 latex environme nt,medica tion Not available Not available Not available 03/27/2024 51763 91 RxNorm RODOLFO fernandes [place] [facility] [place] [facility] 4 14:46:24 474424 Lyrica medicatio n Not available Not available Not available 10/08/2024 78714 1 RxNorm DOMENIC MINDY [place], [facility] 4 14:50:46 121869 almond allergeni c extract food dyspnea hives itching rash swelling wheezing Not available Not available Not available Not available Not available Not available high 10/16/20251980 30533 7 RxNorm Other React ion(s ): Anaph ylaxi s Not Available [employer] [facility] - prod 5 09:56:51 033074 amoxicill in medicatio n Not available Not available Not available 10/16/20252021 723 RxNorm Other react ion(s ): Unkno wn Not Available [employer] [facility] - prod 5 09:56:51 855981 aluminum aspirin Not available Not available Not available Not available 10/16/20252021 611 RxNorm Other react ion(s ): sensi tivit y Not Available [employer] - prod 5 09:56:51 627315 azithromy gagandeep medicatio n rash Not available low 10/16/20252021 71500 RxNorm Not Available [employer] - prod 5 09:56:51 107052 buspirone medicatio n anxiety dyspnea rash swelling wheezing Not available Not available Not available Not available Not available high 10/16/20252024 1827 RxNorm Not Available [employer] - prod 5 09:56:51 335592 clonidine medicatio n Not available Not available low 10/16/20252022 2599 RxNorm Low blood press ure, nause a, vomit ing Not Available [employer] - prod 5 09:56:51 539623 desvenlaf axine succinate medicatio n swelling Not available Not available 10/16/20252021 08118 3 RxNorm Whole body swell ing Not Available [employer] - prod 5 09:56:51 686950 furosemid e medicatio n rash wheezing Not available Not available low 10/16/20252021 4603 RxNorm Not Available [employer] - prod 5 09:56:51 684236 iodine medicatio n rash Not available low 10/16/20252021 5933 RxNorm Not Available [employer] - prod 5 09:56:51 286670 liragluti de medicatio n diarrhea hives nausea rash Not available Not available Not available Not available low 10/16/20252021 08017 8 RxNorm Other react ion(s ): Unkno wn Not Available [employer] - prod 5 09:56:51 230651 lisinopri l medicatio n Not available Not available Not available 10/16/20252021 73883 RxNorm Other react ion(s ): edema Not Available [employer] - prod 5 09:56:51 103140 pregabali n medicatio n itching swelling Not available Not available high 10/16/20252023 48807 2 RxNorm Not Available [employer] - prod 5 09:56:[address] medicatio n rash Not available low 10/16/20252021 13231 RxNorm Not Available [employer] - prod 5 09:56:51 581127 omalizuma b medicatio n anaphylax is Not available high 10/16/20252021 78436 9 RxNorm Not Available dain - [employer] - prod 5 09:56:51 763286 penicilli n G Not available Not available Not available Not available 10/16/20252021 7980 RxNorm Other react ion(s ): Unkno wn Not Available adin - [employer] - prod 5 09:56:51 968513 pravastat in medicatio n rash Not available low 10/16/20252021 10403 RxNorm Not Available dain - [employer] - prod 5 09:56:51 029517 semagluti de medicatio n Not available Not available Not available 10/16/20252021 88187 02 RxNorm Other react ion(s ): N and V Not Available [employer] - prod 5 09:56:51 980523 spironola ctone medicatio n rash Not available low 10/16/20252021 9997 RxNorm Not Available [employer] - prod 5 09:56:51 858358 sulfameth oxazole / trimethop rim medicatio n anaphylax is Not available high 10/16/20252021 53275 RxNorm Not Available [employer] - prod 5 09:56:51 882617 sumatript an medicatio n Not available Not available Not available 10/16/20252021 62307 RxNorm Other react ion(s ): eleva hanny blood press ure Not Available [employer] - prod 5 09:56:51 257748 acetamino phen medicatio n hives Not available Not available 10/16/20252021 161 RxNorm Other react ion(s ): facia l swell ing Not Available [employer] - prod 5 09:56:51 517039 vortioxet ine hydrobrom bora medicatio n anxiety swelling Not available Not available low 10/16/20252024 00717 34 RxNorm Not Available dain - [employer] - prod 5 09:56:51 116695 ascorbic acid / cholecalc iferol / folic acid / niacin / riboflavi n / sodium fluoride / thiamine / vitamin A / vitamin B12 / vitamin B6 / vitamin E medicatio n Not available Not available Not available 10/16/2025 76777 81 RxNorm Not Available dain - [employer] - prod 5 09:56:52 262650 sulfadiaz ine medicatio n Not available Not available Not available 10/16/2025 94751 RxNorm Not Available [employer]ain - [employer] - prod 5 09:56:52 784146 aspirin medicatio n Not available Not available Not available 10/16/2025 1191 RxNorm Not Available dain - [employer] - prod 5 09:56:52 928010 Non-stero idal anti-infl ammatory agent (substanc e) medicatio n Not available Not available Not available 10/16/2025 82838 5008 SNOMED Not Available [employer]ain - [employer] - prod 5 09:56:52 536827 Iodinated contrast media (substanc e) medicatio n Not available Not available Not available 10/16/2025 53549 2004 SNOMED Not Available [employer]ain - [employer] - prod 5 09:56:52 521403 Victoza medicatio n diarrhea hives nausea Not available Not available Not available Not available 10/19/20252024 41738 3 RxNorm unrec ogniz ed react ion (text : Rash, code: 93014 5008) (from exter nal sourc e) Not Available dain - [employer] - prod 5 03:58:07 300099 Ozempic medicatio n diarrhea hives nausea Not available Not available Not available Not available 10/19/20252024 82663 07 RxNorm unrec ogniz ed react ion (text : Rash, code: 93722 5008) (from exter nal sourc e) Not Available dain - [employer] - prod 5 03:58:07 951250 Lasix medicatio n dyspnea hives Not available Not available Not available 10/19/20252024 1 RxNorm unrec ogniz ed react ion (text : Rash, code: 13637 5008) (from exter nal [facility]) Not Available [facility] External Data Service - prod 5 03:58:07 953842 Tylenol medicatio n Not available Not available Not available 10/19/2025202443 3 RxNorm Not Available [facility] External Data Service - prod 5 03:58:07 989084 Singulair medicatio n Not available Not available Not available 10/19/20252024 06460 9 RxNorm Not Available [facility] External Data Service - prod 5 03:58:07 67857 Product containin g penicilli n (product) medicatio n Not available Not available Not available 01/07/20242010 99849 8001 SNOMED Aller gyRea ction : 'Skin React ion, Nause a/Vom iting /Diar gustavo' ; Not Available [facility] 4 15:13:20 69889 amoxicill in trihydrat e medicatio n Not available Not available Not available 01/07/20242010 32691 8 RxNorm Aller gyRea ction : 'Skin React ion'; Not Available [facility] 4 15:13:20 Medications Name Sig Start Date Stop Date Status Note LastModified by Organization Details LastModified Time buspirone 5 mg tablet 03/26 completed Not Available Not Available Not Available clonidine HCl 0.1 mg tablet 03/26 completed Not Available Not Available Not Available gabapentin 600 mg tablet 03/26 completed Not Available Not Available Not Available atorvastati n 20 mg tablet TAKE 1 TABLET BY MOUTH EVERY MORNING active Not Available Not Available No t Available albuterol sulfate 2.5 mg/3 mL (0.083 %) solution for nebulizatio n 3 ML INHALATIO N EVERY 6 HOURS NEEDED FOR WHEEZING active Not Available Not Available No t Available ammonium lactate 12 % lotion PLEASE SEE ATTACHED FOR DETAILED DIRECTION S active Not Available Not Available No t Available fluconazole 150 mg tablet 03/26 completed Not Available Not Available Not Available prazosin 1 mg capsule 03/26 completed Not Available Not Available Not Available FreeStyle Lancets 28 gauge USE TO TEST BLOOD SUGAR 3 TIMES DAILY active Not Available Not Available No t Available clonazepam 0.5 mg tablet TAKE 1 TABLET BY MOUTH TWICE A DAY FOR 7 DAYS 03/26 completed Not Available Not Available Not Available ethacrynic acid 25 mg tablet TAKE 6 TABLETS BY MOUTH TWICE A DAY 90 03/26 completed Not Available Not Available Not Available clonazepam 1 mg tablet TAKE 1 TABLET BY MOUTH THREE TIMES A DAY NEEDED active Not Available Not Available No t Available clindamycin HCl 150 mg capsule TAKE 2 CAPSULES BY MOUTH EVERY 6 HOURS,X7 DAYS active Not Available Not Available No t Available olanzapine 10 mg tablet 03/26 completed Not Available Not Available Not Available metronidazo le 500 mg tablet 03/26 completed Not Available Not Available Not Available chlorthalid one 25 mg tablet 03/26 completed Not Available Not Available Not Available levofloxaci n 250 mg tablet 03/26 completed Not Available Not Available Not Available amlodipine 5 mg tablet TAKE 1 TABLET BY MOUTH EVERY DAY active Not Available Not Available No t Available levothyroxi ne 25 mcg tablet TAKE 1 TABLET BY MOUTH EVERY [...] AREA TWICE A DAY FOR 14 DAYS 03/26 completed Not Available Not Available Not Available glucose 4 gram chewable tablet CHEW 4 TABLETS (16 G) IF NEEDED FOR LOW BLOOD SUGAR. active Not Available Not Available No t Available docusate sodium 100 mg capsule TAKE 1 CAPSULE BY MOUTH TWICE A DAY 03/26 completed Not Available Not Available Not Available levothyroxi ne 200 mcg tablet TAKE 1 TABLET (200 MCG) BY MOUTH ONCE PER DAY. active Not Available Not Available No t Available fluticasone propionate 220 mcg/actuati on HFA aerosol inhaler 03/26 completed Not Available Not Available Not Available mupirocin 2 % topical ointment APPLY IN THE MORNING AND IN THE EVENING TO THE KNEE FOLDS UNTIL HEALED active Not Available Not Available No t Available nystatin 100,000 unit/gram topical powder APPLY TO AFFECTED AREA TWICE A DAY active Not Available Not Available No t Available epinephrine 0.3 mg/0.3 mL injection, auto-inject or INJECT 1 SINGLE-DO SE DEVICE INTO THE THIGH NEEDED FOR SEVERE ALLERGIC REACTION active Not Available Not Available No t Available levofloxaci n 750 mg tablet 03/26 completed Not Available Not Available Not Available albuterol sulfate HFA 90 mcg/actuati on aerosol inhaler INHALE 2 PUFFS BY MOUTH EVERY 4 HOURS NEEDED FOR WHEEZE active Not Available Not Available No t Available topiramate 100 mg tablet 03/26 completed Not Available Not Available Not Available losartan 100 mg tablet TAKE 1 TABLET BY MOUTH DAILY active Not Available Not Available No t Available clotrimazol e 1 % topical cream APPLY TO AFFECTED AREA TWICE A DAY FOR 14 DAYS 03/26 completed Not Available Not Available Not Available risperidone 1 mg tablet 03/26 completed Not Available Not Available Not Available doxycycline hyclate 100 mg tablet TAKE 1 TABLET BY MOUTH 2 TIMES A DAY,X7 DAYS, FOR PROPHYLAX IS CAT BITE - HIGH RISK COMPLICAT IONS 12/25 completed Not Available Not Available Not Available risperidone 0.5 mg tablet 03/26 completed Not Available Not Available Not Available insulin aspart (U-100) 100 unit/mL (3 mL) subcutaneou s pen 15 UNIT (0.15 ML) SUBCUTANE OUSLY 3 TIMES A DAY active Not Available Not Available No t Available Alcohol Prep Pads TEST DAILY BEFORE ALL MEALS/SNA CKS AND ONCE BEFORE BEDTIME. active Not Available Not Available No t Available nitrofurant oin monohydrate /macrocryst als 100 mg capsule 03/26 completed Not Available Not Available Not Available levalbutero l HFA 45 mcg/actuati on aerosol inhaler 1 INHALATIO N INHALATIO N EVERY 4 HOURS, NEEDED FOR SHORTNESS OF BREATH OR WHEEZING active Not Available Not Available No t Available pregabalin 25 mg capsule 03/26 completed Not Available Not Available Not Available ramelteon 8 mg tablet 03/26 completed Not Available Not Available Not Available BD Insulin Syringe Ultra-Fine 0.3 mL 30 gauge x 1/2 USE TO INJECT 1-4 TIMES DAILY DIRECTED. active Not Available Not Available No t Available cholecalcif luigi (vitamin D3) 25 mcg (1,000 unit) tablet TAKE 1 TABLET (25 MCG) BY MOUTH IN THE MORNING 03/26 completed Not Available Not Available Not Available Pulmicort Flexhaler 180 mcg/actuati on breath activated 03/26 completed Not Available Not Available Not Available Humalog KwikPen (U-100) Insulin 100 unit/mL subcutaneou s INJECT 15 UNITS SUBCUTANE OUSLY 3 TIMES A DAY MAX OF 60 UNITS DAILY active Not Available Not Available No t Available Invega Sustenna 156 mg/mL intramuscul ar syringe 03/26 completed Not Available Not Available Not Available Invega Sustenna 117 mg/0.75 mL intramuscul ar syringe 03/26 completed Not Available Not Available Not Available Invega Sustenna 234 mg/1.5 mL intramuscul ar syringe 03/26 completed Not Available Not Available Not Available doxepin 6 mg tablet 03/26 completed Not Available Not Available Not Available Viibryd 10 mg tablet TAKE 1 TABLET BY MOUTH EVERY DAY active Not Available Not Available No t Available vilazodone 40 mg tablet 03/26 completed Not Available Not Available Not Available Viibryd 20 mg tablet TAKE 1 TABLET BY MOUTH EVERY DAY active Not Available Not Available No t Available Myrbetriq 25 mg tablet,exte nded release 03/26 completed Not Available Not Available Not Available Myrbetriq 50 mg tablet,exte nded release 03/26 completed Not Available Not Available Not Available FreeStyle Precision Qasim Strips USE DIRECTED TO TEST BLOOD SUGARS 3 TIMES A DAY active Not Available Not Available No t Available Vraylar 6 mg capsule 03/26 completed Not Available Not Available Not Available Trintellix 5 mg tablet 03/26 completed Not Available Not Available Not Available Trintellix 10 mg tablet 03/26 completed Not Available Not Available Not Available Trintellix 20 mg tablet TAKE 1 TABLET (20 MG) BY MOUTH ONCE PER DAY. 03/26 completed Not Available Not Available Not Available Basaglar KwikPen U-100 Insulin 100 unit/mL (3 mL) subcutaneou s INJECT 82 UNITS UNDER THE SKIN AT BEDTIME. active Not Available Not Available No t Available Fiasp FlexTouch U-100 Insulin 100 unit/mL (3 mL) subcutaneou s pen 03/26 completed Not Available Not Available Not Available levothyroxi ne 175 mcg capsule 03/26 completed Not Available Not Available Not Available OneTouch Delica Plus Lancet 33 gauge CHECK GLUCOSE 3 TIMES A DAY active Not Available Not Available No t Available Lybalvi 5 mg-10 mg tablet 03/26 completed Not Available Not Available Not Available Fidelia 2nd Gen Pen Needle 32 gauge x 5/32 INJECT 1 EACH UNDER THE SKIN 4 TIMES DAILY. active Not Available Not Available No t Available Vitals Date Recorded Body height Provider Name an d Address Organization Details Last Updated DateTime 12/31/2024 157.48 cm [facility] 12/31/2024 14:28:54 Date Recorded Body height Provider Name an d Address Organization Details Last Updated DateTime 04/01/2025 157.48 cm [facility] 04/01/2025 15:30:39 Date Recorded Body height Provider Name an d Address Organization Details Last Updated DateTime 07/15/2025 157.48 cm [facility] 07/15/2025 14:55:05 Date Recorded Body height Provider Name an d Address Organization Details Last Updated DateTime 10/08/2024 157.48 cm [facility] 10/08/2024 14:49:10 Date Recorded Body height Provider Name an d Address Organization Details Last Updated DateTime 10/19/2025 157.48 cm [facility] 10/19/2025 15:42:06 Social History None recorded. Functional Status None recorded. Mental Status None recorded. Family History Nothing Reported. Medical History Condition Response Coronary Artery Disease N Anxiety/Depression N Emphysema N COPD N Pacemaker N Vascular Disease N Heart Trouble N Gastrointestinal Disease N Autoimmune disease N Inflammatory Joint disease N Orthotics N Arthritis N Blood Clot N Acid Reflux (GERD) N Cancer N Stroke N Circulation Problems N Rheumatoid Arthritis N Arrhythmia N Headaches N Fibromyalgia N Allergies/Hayfever N Breathing or lung disorders Y Nerve Disorders N Thyroid Problems Y Kidney/Bladder Problems N Anemia N Heart Attack (ND) N Cholesterol Y Diabetes Y Bleeding Disorder N Seizures/Epilepsy N AIDS/HIV N Congestive Heart Failure (CHF) N Asthma Y Peripheral Vascular Disease N Sleep Apnea N Hepatitis N Heart Disease N Pulmonary Embolism N Hypertension N Osteoporosis N Gynecological HistoryNo gynecological history recorded. Obstetrics History GPAL:G 0 P 0 0 0 0 Past Encounters Encounter ID Performer Location Encounter Start Date Encounter Closed Date Diagnosis/Indication Diagnosis SNOMED-CT Code Diagnosis ICD10 Code Diagnosis IMO Codes Diagnosis Note [id number] LEEANN Ribeiro [address] [place] [place] [address] 03/27/2024 13:58:04 04/16/2024 13:21:33 Pain of right knee joint 0235041828 24524 M25.561 Osteoarthr itis of left knee joint 1431577475 72956 M17.12 [id number] LEEANN Ribeiro [address] [place] [address] 07/09/2024 14:07:17 07/30/2024 11:29:18 Osteoarthritis of left knee joint 2278722384 66626 M17.12 Pain of ri ght knee joint 1811829315 98830 M25.876 [id number] LEEANN Ribeiro [address] [place] [address] 10/08/2024 14:46:36 11/03/2024 13:40:49 Osteoarthritis of left knee joint 4913045574 67653 M17.12 2352547 Osteoarthr itis of right knee joint 2108470339 86350 M17.11 [id number] [address] 12/31/2024 14:17:58 01/12/2025 12:14:57 Osteoarthritis of left knee joint 1230197498 29744 M17.12 1758919 Osteoarthr itis of right knee joint 9666167960 10402 M17.11 [id number] L[facility] [address] [place] [address] 04/01/2025 15:11:57 04/08/2025 14:00:33 Osteoarthritis of left knee joint 9987640048 26054 M17.12 [id number] Osteoarthr itis of right knee joint 7692742881 33000 M17.11 [id number] [facility] [address] [place] [address] 07/15/2025 14:51:53 07/23/2025 15:49:13 Osteoarthritis of left knee joint 3554392691 65717 M17.12 [id number] Osteoarthr itis of right knee joint 1984564523 87493 M17.11 [id number] LEE[facility] [address] [place] [address] 10/19/2025 15:35:01 10/20/2025 12:07:08 Osteoarthritis of left knee joint 2032484109 02846 M17.12 [id number] Osteoarthr itis of right knee joint 1799320098 42356 M17.11 [id number] Health Concerns Section Related Observation LastModified by Organization Detai ls LastModified Time None Recorded Concern Status LastModified by Organization Details LastModified Time None Recorded Advance Directives Directive None Recorded Payers Insurance Date Sequence Insurance Name Policy Number Policy Palaf[employer] Covered Member ID Palafox Member ID Guarantor Name 10/19/2025 1 [place] [employer] [place] [id number] Elyssa A Farhat 10/19/2025 2 [place] [facility] Elyssa A Farhat [id number] Elyssa A Farhat Notes Date Note Type Note Provider Name and Address Organization Details Recorded Time 10/08/2024 text/html I am seeing the patient [...] continued conservative treatment. Robert Conde PA-C [address] [facility], [place], [address], [facility] 10/08/2024 15:02:32 12/31/2024 text/html [...] continued conservative treatment. Robert Conde PA-C [address], [place], [address], [facility] 12/31/2024 15:24:59 04/01/2025 text/html [...] continued conservative treatment. Robert Conde PA-C [address], [place], [address], [place] [facility] 04/01/2025 16:26:04 07/15/2025 text/html [...] pneumatic compression devices. Robert Conde PA-C [address], [place], [address], [facility] 07/15/2025 16:42:38 10/19/2025 text/html I am seeing the patient today [...] pneumatic compression devices. Robert Conde PA-C [address] [facility] [address], [place], [address], [facility] 10/20/2025 12:07:06 OBGyn Episode No OBEpisode recorded.
== END 2025-10-20 09:16 | disposition home or self-care (01) ==
LOC: HO.HKASLDS 09:15
PROVIDERS: PCP Internal Medicine; Visit Provider Student in an Organized Health Care Education/Training Program
DX: M15.0 Primary generalized (osteo)arthritis (principal); M79.7 Fibromyalgia; R70.0 Elevated erythrocyte sedimentation rate; G43.719 Chronic migraine without aura, intractable, without status migrainosus; E66.01 Morbid (severe) obesity due to excess calories; Z68.44 Body mass index [BMI] 60.0-69.9, adult; R76.0 Raised antibody titer
CPT/HCPCS: 36415; 85652; 86140

== ENCOUNTER 2025-10-20 09:15 | Outpatient (AMB) | payer MEDICARE, MEDICAID, SELFPAY ==
[2025-10-20 09:17] VITALS: BP 140/78; PULSE 81; O2SAT 96; BMI 68.9
--- NOTE | 2025-10-20 09:17 | A.OFFVIS_ITS ---
Vital Signs 10/20/25 09:17 Height 5 ft 2 in Weight 376 lb 8.792 oz BMI 68.9 BP 140/78 H Blood Pressure Location Lt brachial Position Sitting Pulse 81 Pulse Source Pulse Oximeter Pulse Oximetry (%) 96 Oxygen Delivery Method Room Air Intake Visit Reasons: osteoarthritis/ New Patient Intake Note: Patient is a new patient, internally referred by PCP, Chuck Barfield for osteoa rthritis. Accompanied by: Friend Allergies lamotrigine (From Lamictal) Allergy (Severe, Verified 10/20/25 09:25) Muscle Pain lithium Allergy (Severe, Verified 10/20/25 09:25) seizures omalizumab (Xolair) Allergy (Severe, Verified 10/20/25 09:25) anaphylaxis penicillin G Allergy (Severe, Verified 10/20/25 09:25) Anaphylaxis Sulfa (Sulfonamide Antibiotics) Allergy (Severe, Verified 10/20/25 09:25) anaphylaxis sulfamethoxazole (From Bactrim) Allergy (Severe, Verified 10/20/25 09:25) Anaphylaxis sumatriptan Allergy (Severe, Verified 10/20/25 09:25) Unknown trimethoprim (From Bactrim) Allergy (Severe, Verified 10/20/25 09:25) Anaphylaxis vortioxetine (From Trintellix) Allergy (Severe, Verified 10/20/25 09:25) serotin toxicity acetaminophen (From Tylenol) Allergy (Intermediate, Verified 10/20/25 09:25) Hives desvenlafaxine Allergy (Intermediate, Verified 10/20/25 09:25) Wheezing iodine Allergy (Intermediate, Verified 10/20/25 09:25) Rash ziprasidone Allergy (Intermediate, Verified 10/20/25 09:25) Seizure insulin aspart (From Novolog U-100 Insulin aspart) Allergy (Mild, Verified 10/20/25 09:25) Rash pediatric multivitamin no.130 (From Floriva Plus (with biotin)) Allergy (Mild, Verified 10/20/25 09:25) hives sodium fluoride (From Floriva Plus (with biotin)) Allergy (Mild, Verified 10/20/25 09:25) hives amoxicillin Allergy (Unknown, Verified 10/20/25 09:25) Unknown azithromycin (Zithromax) Allergy (Unknown, Verified 10/20/25 09:25) Unknown furosemide (Lasix) Allergy (Unknown, Verified 10/20/25 09:25) Unknown hydrochlorothiazide Allergy (Unknown, Verified 10/20/25 09:25) Unknown lisinopril Allergy (Unknown, Verified 10/20/25 09:25) Unknown metformin Allergy (Unknown, Verified 10/20/25 09:25) Unknown montelukast (Singulair) Allergy (Unknown, Verified 10/20/25 09:25) Unknown pravastatin Allergy (Unknown, Verified 10/20/25 09:25) Unknown spironolactone Allergy (Unknown, Verified 10/20/25 09:25) Unknown sulfacetamide Allergy (Unknown, Verified 10/20/25 09:25) Unknown gabapentin Allergy (Verified 10/20/25 09:25) night sweats liraglutide Adverse Reaction (Intermediate, Verified 10/20/25 09:25) Nausea and Vomiting semaglutide Adverse Reaction (Intermediate, Verified 10/20/25 09:25) Nausea and Vomiting zolair Allergy (Severe, Uncoded 10/20/25 09:25) Anaphylaxis JAYRO INHIBITORS Allergy (Unknown, Uncoded 10/20/25 09:25) Unknown LATEX Allergy (Unknown, Uncoded 10/20/25 09:25) Unknown NSAIDS Allergy (Unknown, Uncoded 10/20/25 09:25) Unknown SHELLFISH Allergy (Unknown, Uncoded 10/20/25 09:25) Unknown Sulfacet-R Allergy (Unknown, Uncoded 10/20/25 09:25) Unknown TREE NUTS Allergy (Unknown, Uncoded 10/20/25 09:25) Unknown HPI Comments Details: 55-year-old female with a history of osteoarthritis, hashmito thyroiditis, morbid obesity, severe anxiety , schizoaffective disorder, migrainous headaches since childhood coming in today as a new patient for evaluation of joint pain. Joint pain started in the knees when she was in her early 40s when she had right knee torn meniscus, she had an arthroscopic surgery but since then she bilateral knee pain. She has been seeing orthopedics and since 2019 she has been getting cortisone shots every 3 months, they were effective at first now she reports they have lost effectiveness. 3 years ago she has joint pain in the hands, neck, back elbows shoulders and she states every joint hurts . She has stiffness all day long , she has pain al the time, no specific stiffness, difficulty climbing stairs. She uses a walker to walk She has very poor sleep, she has sleep apnea and uses CPAP. She is unable to get a refreshing sleep and wakes up repeatedly. SHE HAS PAIN IN BILATERAL SHOULDERS, however she only has pain blood flow hips when she is walking or when she is lying down, She also has migrainous headaches that occur every other day that last for a whole day. During that time she does not take any medication as she is allergic to several medicines, she rests in a dark room. She states she gets visual blurring during these headache episodes however she has not had any episodes where she lost her vision. These headaches have been there since childhood. She has a neurology referral put in has not seen them yet. She does not have jaw pain while chewing her food. She had serotonin toxicity last year and had muscle spasms. she has not noticed active synovitis. On labs WBC was 12.4 hemoglobin and platelets within normal limits glucose was 143 kidney function is normal AST ALT within normal limits TSH was low at 0.293 RF was negative CCP was negative ROEL was negative ACTH was 23.4 cortisol was low actually 0.4 ESR 84 CRP was 23 HbA1c was 8. ROS: She endorses photosensitivity she has dry eyes and dry mouth, she does not have oral ulcers no scarring alopecia, no Raynaud's, no bloody diarrhea ,no bloody urine. There is no blood clots no skin rash, she has hives FH: cousin has lupus, aunt has MS, maternal had RA PHYSICAL EXAM General: Comfortable CVS: RRR Respiratory: clear to auscultation bilaterally. Good respiratory effort Skin: No lesions seen MSK: Patient is able to make a fist bilaterally. Patient has nontender PIPs MCPs. No active synovitis noted in any of the fingers. She has no wrist swelling. She has full range of motion in the shoulders. Her strength is 5/5 in the shoulders. Patient has very limited range of motion the hips and in the knees. She has difficulty walking. She uses a walker to walk. She has lymphedema in both legs bilaterally. Non pitting edema present in both lower extremities [facility] Medical History (Updated 10/20/25 @ 13:20 by Marion Womack MD) Hx of seasonal allergies History of posttraumatic stress disorder (PTSD) Hx of mammogram (~04/2025) Torn meniscus Panic disorder Anxiety and depression Neuropathy Headache Incontinence GERD (gastroesophageal reflux disease) IBS (irritable bowel syndrome) Swelling Edema Osteoarthritis Arthritis Thyroid disorder Diabetes High cholesterol HTN (hypertension) Asthma Surgical History (Updated 10/20/25 @ 09:30 by Arpita Heard CMA) H/O arthroscopy of right knee Hx of colonoscopy (~2019) History of tonsillectomy Previous section Family History Mother Asthma HTN (hypertension) High cholesterol Diabetes Cardiovascular disease Thyroid disorder Mental health disorder Maternal Grandmother HTN (hypertension) High cholesterol Cardiovascular disease Father High cholesterol Cardiovascular disease Lung cancer Mental health disorder Paternal Grandfather No problems noted. Maternal Grandfather Cardiovascular disease Paternal Grandmother Leukemia Social History Housing: House Alcohol intake: never Patient Tobacco Use Status: Never used Tobacco e-Cigarette/Vaping Use: Never Used Second Hand Smoke Exposure: No Current occupational status: disabled Cognitive needs: No Hearing needs: Yes (left hearing aide) Vision needs: Yes (wear glasses) Physical Exam Vital Signs: Last Vital Signs Pulse 81 10/20/25 09:17 BP 140/78 H 10/20/25 09:17 Pulse Ox 96 10/20/25 09:17 Oxygen Delivery Method Room Air 10/20/25 09:17 BMI result Body Mass Index 68.9 Assessment & Plan Assessment & Plan (1) Osteoarthritis: Code(s): M19.90 - Unspecified osteoarthritis, unspecified site Category: Medical (2) Fibromyalgia: Code(s): M79.7 - Fibromyalgia Category: Medical (3) Osteoarthritis: Code(s): M19.90 - Unspecified osteoarthritis, unspecified site Category: Medical Qualifiers: Osteoarthritis location: multiple joints Osteoarthritis type: primary Qualified Code(s): M15.0 - Primary generalized (osteo)arthritis (4) Elevated erythrocyte sedimentation rate: Code(s): R70.0 - Elevated erythrocyte sedimentation rate Category: Medical (5) BMI 60.0-69.9, adult: Code(s): Z68.44 - Body mass index [BMI] 60.0-69.9, adult Category: Medical (6) Migraines: Code(s): G43.909 - Migraine, unspecified, not intractable, without status migrainosus Category: Medical Qualifiers: Migraine type: chronic migraine (15 or more days per month) without aura Status migrainosus presence: without status migrainosus Intractability: intractable Qualified Code(s): G43.719 - Chronic migraine without aura, intractable, without status migrainosus Plan 55-year-old female with a history of osteoarthritis, hashmito thyroiditis, morbid obesity, severe anxiety , schizoaffective disorder, migrainous headaches since childhood coming in today as a new patient for evaluation of joint pain. Based on her history, physical exam and lab work most likely causes of her joint pain are osteoarthritis wear and tear, degenerative arthritis with super imposed fibromyalgia. Inflammatory arthritis like seronegative RA,RA,SLE,other CTD less likely at this time. Given her diffuse joint pain and elevated ESR and CRP polymyalgia rheumatica may be on the differential, however patient has chronic migraines since childhood and along with this she does not have jaw pain while chewing. She has good range of motion of her shoulders which goes against polymyalgia rheumatica and also has no pain in the hips while sitting. She has a neurology referral in place and appt is in Dec. Her elevated inflammatory markers may be secondary to hypothyroidism, uncontrolled diabetes and other hormonal imbalance, along with her morbid obesity She also has a component of fibromyalgia. I do not see any signs suggestive of an autoimmune rheumatic disease upon my evaluation.Discussed management of fibromyalgia with patient. Is a noninflammatory, non-autoimmune central afferent processing disorder leading to a diffuse pain syndrome. I suggested that patient try to address her underlying psychiatric issues, anxiety/depression. Try to follow sleep hygiene practices. Patient would benefit from increased physical activity, either through formal physical therapy or by joining a gym. Advised patient that she should start activity slowly and increase as tolerated. Consider low-impact exercises such as walking, swimming, aqua therapy stretching, yoga. She is not interested in physical therapy at this time. I will obtain repeat inflammatory markers today, along with x-rays of hands to rule out stigmata of inflammatory arthritis. I will also obtain bilateral x- rays of hips and shoulders to assess amount of arthritis in these joints. Follow up in 3 weeks for the discussion of results and further management Orders: Orders XR hip BI w PEL1V Today M19.90 - Unspecified osteoarthritis, unspecified site XR Hand Seamus 2V Today M19.90 - Unspecified osteoarthritis, unspecified site Erythrocyte Sedimentation Rate Today R76.0 - Raised antibody titer C Reactive Protein Today R76.0 - Raised antibody titer XR Shoulder Seamus 1V Today G43.909 - Migraine, unspecified, not intractable, without status migrainosus, M19.90 - Unspecified osteoarthritis, unspecified site, M79.7 - Fibromyalgia, R70.0 - Elevated erythrocyte sedimentation rate XR Wrist Seamus 2V Today M19.90 - Unspecified osteoarthritis, unspecified site Coding Level of Care Code New Pt Level 5 (14340) Diagnoses Osteoarthritis M19.90 Fibromyalgia M79.7 Elevated erythrocyte sedimentation rate R70.0 BMI 60.0-69.9, adult Z68.44 Intractable chronic migraine without aura and without status migrainosus G43.719 Migraine type: chronic migraine (15 or more days per month) without aura Status migrainosus presence: without status migrainosus Intractability: intractable Time Spent (min) 60
--- OUTSIDE RECORDS SUMMARY | 2025-10-20 10:37 | XMS_ITS | Encounter Summary ---
Author Organization [facility] Address [address] [place] [address] Care Team Providers Care Supervisor Type Photography Name Role Phone Francheska Tucker NP Primary Care Provider UnavailLei Paulson Unavailable Unavailable Sharmila Azar DO Primary Care Provider [phone] Inactive/Transferred Primary Care Provider Unava ilable Inactive/Transferred Primary Care Provider Unava ilable Encounter Details Date Type Department Care Team (Late st Contact Info) Description 06/25/2024 Orders Only [facility] MED[facility] [address] [place] [address] Provider, MD Sharad Social History Tobacco Use [...] Noted Time PHQ-9 Depression Total Score: 20 05/20/2 024 7:38 AM EDT documented as of this encounter Care Teams Supervisor Type Photography Relationship Specialty Start Date End Date Francheska Tucker NP PCP - General Family Medicine 10/25/23 11/01/24 Sharmila Azar DO [address] [place] [address] PCP - General Family Medicine 11/02/24 06/17/25 Inactive/Transferred PCP - General 06/18/25 06/18/25 Inactive/Transferred PCP - General 08/12/25 Lei Thacker Health Navigator 09/17/24 documented as of this encounter
--- OUTSIDE RECORDS SUMMARY | 2025-10-20 10:37 | XMS_ITS | Encounter Summary ---
Author Organization [employer] Address [address] [place] [address] Care Team Providers Care Registered Nurse Post Partum Name Role Phone Lei Thacker Unavailable Unavailable Sharmila Azar DO Primary Care Provider [phone] Inactive/Transferred Primary Care Provider Unava ilable Inactive/Transferred Primary Care Provider Unava ilable Reason for Visit * Reason Comments Med Change Request Encounter Details Date Type Department Care Team (Late st Contact Info) Description 03/06/2025 Chasill Pat [facility] MED[facility] [address] [place] [address] Sharmila Azar DO [address] [place] [address] Type 2 diabetes mellitus with diabetic polyneuropathy, with long-term current use of insulin ([facility]) Social History Tobacco Use Types Packs/Day Years [...] documented as of this encounter Care Teams Registered Nurse Post Partum Relationship Specialty Start Date End Date Sharmila Azar DO [address] [place] [id number] PCP - General Family Medicine 11/02/24 06/17/25 Inactive/Transferred PCP - General 06/18/25 06/18/25 Inactive/Transferred PCP - General 08/12/25 Lei Thacker Health Navigator 09/17/24 documented as of this encounter
--- OUTSIDE RECORDS SUMMARY | 2025-10-20 10:37 | XMS_ITS | Encounter Summary ---
Author Organization [employer] Address [address] [place] [address] Care Team Providers Care Secondary School Principal Name Role Phone Francheska Tucker NP Primary Care Provider UnavailLei Paulson Unavailable Unavailable Sharmila Azar DO Primary Care Provider Inactive/Transferred Primary Care Provider Unava ilable Inactive/Transferred Primary Care Provider Unava ilable Encounter Details Date Type Department Care Team (Late st Contact Info) Description 12/19/2023 Orders Only [facility] MEDICAL [address] [place] [address] Provider, MD Sharad Social History Tobacco Use [...] on filedocumented in this encounter Care Teams Secondary School Principal Relationship Specialty Start Date End Date Francheska Tucker NP PCP - General Family Medicine 10/25/23 11/01/24 Sharmila Azar DO [address] [place] [id number] PCP - General Family Medicine 11/02/24 06/17/25 Inactive/Transferred PCP - General 06/18/25 06/18/25 Inactive/Transferred PCP - General 08/12/25 Lei Thacker Health Navigator 09/17/24 documented as of this encounter
--- OUTSIDE RECORDS SUMMARY | 2025-10-20 10:37 | XMS_ITS | Encounter Summary ---
Author Organization [employer] Address [address] [place] [address] 7 [place] [address] Care Team Providers Care Systems Designer Name Role Phone Shilpa Miller CNP Primary Care Provider [phone] Francheska Tucker NP Primary Care Provider UnavailLei Paulson Unavailable Unavailable Sharmila Azar DO Primary Care Provider [phone] Inactive/Transferred Primary Care Provider Unava ilable Inactive/Transferred Primary Care Provider Unava ilable Reason for Visit * Reason Comments Med Refill Encounter Details Date Type Department Care Team (Late st Contact Info) Description 07/25/2023 Refill Pat [facility] [address] [place] [address] Shilpa Miller CNP [address] [place] [address] Hypothyroidism, unspecified Social History Tobacco Use Types [...] unspecified documented in this encounter Care Teams Systems Designer Relationship Specialty Start Date End Date Shilpa Miller CNP [address] [place] [address] PCP - General Family Medicine 10/16/22 10/24/23 Francheska Tucker NP [address] [place] [address] PCP - General Family Medicine 10/25/23 11/01/24 Sharmila Azar DO [address] [place] [address] PCP - General Family Medicine 11/02/24 06/17/25 Inactive/Transferred PCP - General 06/18/25 06/18/25 Inactive/Transferred PCP - General 08/12/25 Lei Thacker Health Navigator 09/17/24 documented as of this encounter
--- OUTSIDE RECORDS SUMMARY | 2025-10-20 10:37 | XMS_ITS | Encounter Summary ---
Author Organization [employer] Address [address] [place] [address] 7 [place] [address] Care Team Providers Care Agile Scrum Coach Name Role Phone Francheska Tucker NP Primary Care Provider UnavailLei Paulson Unavailable Sharmila Collins DO Primary Care Provider [phone] Inactive/Transferred Primary Care Provider Unava ilable Inactive/Transferred Primary Care Provider Unava ilable Reason for Visit * Reason Comments Med Change Request Encounter Details Date Type Department Care Team (Late st Contact Info) Description 05/12/2024 Oneyda Stewart [facility] MED[facility] [address] [place] [address] Shilpa Miller, MARIA C [address] [place] [address] Psychophysiological insomnia Social History Tobacco Use Types [...] documented as of this encounter Care Teams Agile Scrum Coach Relationship Specialty Start Date End Date Francheska Tucker NP PCP - General Family Medicine 10/25/23 11/01/24 Sharmila Azar DO [address] [place] [address] PCP - General Family Medicine 11/02/24 06/17/25 Inactive/Transferred PCP - General 06/18/25 06/18/25 Inactive/Transferred PCP - General 08/12/25 Lei Thacker Health Navigator 09/17/24 documented as of this encounter
--- OUTSIDE RECORDS SUMMARY | 2025-10-20 10:37 | XMS_ITS | Encounter Summary ---
Author Organization [employer] Address [address] [facility] 7t [place] [address] Care Team Providers Care Sanitary Engineering Teacher Name Role Phone Lei Thacker Unavailable Unavailable Sharmila Azar Primary Care Provider Inactive/Transferred Primary Care Provider Unava ilable Inactive/Transferred Primary Care Provider Unava ilable Reason for Visit * Reason Onset Date Comments Med Refill 01/31/2025 Encounter Details Date Type Department Care Team (Late st Contact Info) Description 01/31/2025 Refill Pat [facility] MED[facility] [address] [place] [address] Francheska Tucker NP Essential (primary) hypertension Social History Tobacco Use [...] documented as of this encounter Care Teams Sanitary Engineering Teacher Relationship Specialty Start Date End Date Sharmila Azar DO [address] [place] [address] PCP - General Family Medicine 11/02/24 06/17/25 Inactive/Transferred PCP - General 06/18/25 06/18/25 Inactive/Transferred PCP - General 08/12/25 Lei Thacker Health Navigator 09/17/24 documented as of this encounter
--- OUTSIDE RECORDS SUMMARY | 2025-10-20 10:37 | XMS_ITS | Encounter Summary ---
Author Organization [employer] Address [address] [facility] [address] [place] [address] Care Team Providers Care Tongue And Groove Machine Setter Name Role Phone Francheska Tucker NP Primary Care Provider UnavailLei Paulson Unavailable Sharmila Collins DO Primary Care Provider [phone] Inactive/Transferred Primary Care Provider Unava ilable Inactive/Transferred Primary Care Provider Unava ilable Reason for Visit * Reason Comments Med Refill Encounter Details Date Type Department Care Team (Late st Contact Info) Description 03/21/2024 Refill aPt [facility] [address] [place] [address] Shilpa Miller, CAD ENGINEER [address] [place] [address] Type 2 diabetes mellitus with diabetic polyneuropathy, with long-term current use of insulin ([facility]) Social History Tobacco Use Types Packs/Day [...] 7:38 AM Shilpa De Leon CNP * How difficult have these problems made it for you to do your work, take care of things at home, or get along with other people? Answer Date of Assessment Author Very difficult 03/24/2024 7:38 AM Shilpa De Leon CNP * Over the last [...] documented as of this encounter Care Teams Tongue And Groove Machine Setter Relationship Specialty Start Date End Date Francheska Tucker NP PCP - General Family Medicine 10/25/23 11/01/24 Sharmila Azar DO [address] [place] [id number] PCP - General Family Medicine 11/02/24 06/17/25 Inactive/Transferred PCP - General 06/18/25 06/18/25 Inactive/Transferred PCP - General 08/12/25 Lei Thacker Health Navigator 09/17/24 documented as of this encounter
--- OUTSIDE RECORDS SUMMARY | 2025-10-20 10:37 | XMS_ITS | Clinical Summary ---
Author Organization [employer] Address [address] [facility] 7t [place] [address] Care Team Providers Care Country Singer Name Role Phone Lei Thacker Unavailable Unavailable Inactive/Transferred Primary Care Provider Unava ilable Allergies Active Allergy Reactions Criticality Noted Date Comments Carson Oil Hives,Itching,Rash,S hortness of breath,Swelling,Whee zing High 11/05/1980 Other Reaction(s): Anaphylaxis Amoxicillin 10/11/2022 Other reaction(s): Unknown Aspirin 10/11/2022 Other reaction(s): sensitivity Azithromycin Rash Low 10/11/2022 Black Mary Alice Flavoring Agent (Non-Screening) Hives,Itching,Shortn ess of breath,Swelling,Whee [...] long-term current use of insulin ([facility]) Use as directed to test blood sugars 3 times a day 100 strip 12 12/09/19 25 Active levalbuterol (Xopenex) 45 MCG/ACT inhalerIndications :Mild intermittent asthma without complication INHALE 2 PUFFS EVERY 4 HOURS IF NEEDED FOR WHEEZING. 15 g 12/25/19 25 Active nystatin (Mycostatin) 923376 UNIT/GM powderIndications: Soo infection of flexural skin Apply topically 2 times daily. 60 g 1 01/01/20 25 026 Active losartan (Cozaar) 100 MG tabletIndications: Essential (primary) hypertension TAKE 1 TABLET (100 MG) BY MOUTH ONCE PER DAY. 90 tablet 3 02/03/20 25 Active Basaglar KwikPen 100 UNIT/ML penIndications:Typ e 2 diabetes mellitus with diabetic polyneuropathy, with long-term current use of insulin ([facility]) Inject 82 Units under the [...] 03/09/20 25 Active Lancets (OneTouch Delica Plus [id number]) miscIndications:Ty pe 2 diabetes mellitus with diabetic polyneuropathy, with long-term current use of insulin ([facility]) CHECK GLUCOSE 3 [...] diabetes mellitus with diabetic polyneuropathy ([facility]) INJECT 1 EACH UNDER THE SKIN 4 TIMES DAILY. 100 each 3 05/18/20 25 Active insulin aspart FlexPen (NovoLOG) 100 UNIT/ML penIndications:Typ e 2 diabetes mellitus with diabetic polyneuropathy, with long-term current use of insulin ([facility]) Inject 8-10 Units [...] depression, PTSD. Engaged with Dom Carter at [facility] in [place] for medication. Sees Forrest at [facility] for therapy weekly on phone. Feeling symptoms [...] ARB and STATIN. EYE: Dr. Segura in [place] DENTIST: Has false teeth. FBS 60-100. Will [...] pain. Will refer to weight management. Completed RN EXAMINER paperwork for Ismael. Assessment & Plan (05/25/2023 [...] Department Care Team Description 07/22/2025 Results Follow-Up [facility] MEDICAL [address] [place] [address] Sharmila Azar DO TSH with Reflex to Free T4 [[id number]] 07/21/2025 Results Follow-Up [address] [address] Sharmila Azar DO CBC auto differential, Comprehensive Metabolic Panel [[id number]] from Last 3 Months Immunizations Immunization Administration [...] l shanda cancer, +smoker Stroke Father samm martinez'enrique Diabetes Mother vladimir o'enrique Heart disease Mother vladimir o'enrique Hypertension Mother vladimir martinez'enrique NH Mother vladimir hawk after NH. Stroke Mother vladimir o'enrique Thyroid disease Mother vladimir martinez'enrique Relation Name Status Comments Brother Alive Daughter [...] 1968 FIT 1968 FOBT 1968 Sigmoidoscopy 1968 RSV Patients and Patients Aged 60 years or older (1 - Risk 50-74 years 1-dose series) 2018 Zoster Vaccines (1 of 2) 2018 Lipid Panel 12/11/2024 12/11/2023, 12/2021, 06/06/2022, Additional history exists COVID-19 Vaccine ( season) 2025 10/01/2024, 11/01/2022, 10/20/2021, Additional history exists Influenza Vaccine (#1) 2025 4, 08/07/2024, 08/21/2023, Additional history exists Diabetes: Hemoglobin [...] Completed 06/23/2024, 10/08/2015, 02/10/2011, Additional history exists HIB Vaccines Aged Out [...] Procedure Name Priority Date/Time Associated Diagnosis Comments POCT GLYCOSYLATED HEMOGLOBIN (HGB A1C) Routine 06/22/2025 2:22 PM EDT Type 2 diabetes mellitus with diabetic polyneuropathy, with long-term current use of insulin ([facility]) BI MAMMOGRAM SCREENING TOMOSYNTHESIS BILATERAL Routine 04/25/2025 1:53 PM EDT ALBUMIN/CREATININE RATIO, RANDOM URINE Routine 01/01/2025 12:00 AM EST Type 2 diabetes mellitus with diabetic polyneuropathy, with long-term current use of insulin ([facility]) DIABETES EYE EXAM Routine 05/28/2024 5:27 PM EDT LIPID PANEL, STANDARD Routine 12/11/2023 12:51 PM EST Hypercholesterolem ia PAP SMEAR Routine 07/17/2023 12:00 AM EDT COLONOSCOPY Routine 12/30/2020 ZZZ HISTORICAL HEPATITIS C ANTIBODY TEST Routine 12/14/2020 7:58 AM EST HIV 1/2 ANTIGEN/ANTIBODY, FOURTH GENERATION W/RFL Routine 12/14/2020 7:58 AM EST from Last 3 Months or Most Recently Relevant to Health Maintenance Results * (ABNORMAL) POCT glycosylated hemoglobin (Hgb A1c) [...] breast cancer. No known palpable abnormalities. COMPARISON: [facility] dating back to 01/14/2013. TECHNIQUE: Full-field [...] (Negative) Lay letter mailed to patient WSN: [id number] Ordering Physician: Sharmila Azar Dictated By: Kayleigh Hall MD, I Dictated Date/Time: 04/27/25 4:25 pm Reviewed By: Kayleigh Hall MD, I Signed By: Kayleigh Hall MD, I Signed Date/Time: 04/27/25 4:25 pm Transcribed By: [employer] Business [employer] Administrator Date/Time: 04/27/25 4:22 pm Birads: Procedure Note Donotuseinterpreter, Image - 04/27/2025 PROCEDURE: MM Digital Mammo Screening INDICATION: Screening for breast cancer. No known palpableabnormalities. COMPARISON: [facility] dating back to 01/14/2013. TECHNIQUE: Full-field [...] (Negative) Lay letter mailed to patient WSN: [id number] Ordering Physician: Sharmila Azar Dictated By: Kayleigh Hall MD, I Dictated Date/Time: 04/27/25 4:25 pm Reviewed By: Kayleigh Hall MD, I Signed By: Kayleigh Hall MD, I Signed Date/Time: 04/27/25 4:25 pm Transcribed By: [employer] Business Services Administrator Date/Time: 04/27/25 4:22 pm Birads: Sharmila Azar [...] - 01/04/2025 6:35 AM EST Performed at: [facility] [id number] Carpet Installer Helper: Megan Curry MD, Phone: [phone] Sharmila Azar DO LAB URINE ORDERABLES Final Res ult [facility] 1 * Diabetes Eye Exam (05/28/2024 5:27 PM EDT) [facility] Provider HEALTH MAINTENANCE Final Result * Lipid panel (12/11/2023 12:51 PM EST) Cholesterol, Total 142 (<200) MG/DL [facility] Triglyceride (mg/dL) in Serum/Plasma 89 (<150) MG/DL [facility] HDL Cholesterol 67 (>39) MG/DL [facility] LDL Cholesterol, Calculated 57 (0-130) MG/DL [facility] Non HDL Chol. (LDL+VLDL) 75 (<160) MG/DL [facility] Comment: Testing performed or reported by [facility], a Service of [facility], [address] [place] [id number] Rojas Garza MD, A And P Technician [facility]# [id number] Blood Venous blood specimen / Unknown 12/11/2023 12:51 PM EST 12/11/2023 12:52 PM EST Francheska Tucker NANNY/HOUSEHOLD MANAGER LAB BLOOD ORDERABLES Final Resul t Performing Organization Address [facility]/ZIP Co de Phone Number [address] [address] * Pap Smear (07/17/2023 12:00 AM EDT) Swab Historical Provider LAB CYTOLOGY ORDERABLES F inal Result Performing Organization Address [facility] Co de Phone Number [facility] [address] [place] [phone] * Hm Colonoscopy (12/30/2020) Colonoscopy repeat in 10 yeasr Historical Provider HEALTH MAINTENANCE Final Result * -Hepatitis C Antibody Test (12/14/2020 7:58 AM EST) ANTI-HEPATITIS C NEGATIVE (NEG) U [facility] Comment: Reference range: Negative This test was performed on the Likeable Local immunoassay system. 12/14/2020 7:58 AM EST Shilpa Miller MSW HISTORICAL/NON ORDERABLE LABS Final Result Performing Organization Address City/[facility]/ZIP Co de Phone Number [facility] [address] * -HIV AB-AG 4TH GENERATION (12/14/2020 7:58 AM EST) RESULT 4TH GEN HIV AB-AG NEGATIVE (NEG) [facility] Comment: Negative for antibodies to HIV 1 and HIV 2 and P24 antigen. Reference range: Negative Additional note: Written patient authorization is required for each separate release of this test result. This test was performed on the Likeable Local immunoassay system. 12/14/2020 7:58 AM EST Shilpa Miller MSW LAB BLOOD ORDERABLES Final Re sult [facility] [address] from Last 3 Months or Most Recently Relevant to Health Maintenance Insurance [place] [phone] [facility] Advance Directives Documents on File Type Date Recorded Patient Loss Prevention/Safety District Manager Expl anation HealthCare Proxy 10/24/2023 12:48 PM HCP Care Teams Country Singer Relationship Specialty Start Date End Date Inactive/Transferred PCP - General 08/12/25 Lei Thacker Health Navigator 09/17/24
--- OUTSIDE RECORDS SUMMARY | 2025-10-20 10:37 | XMS_ITS | Encounter Summary ---
Author Organization [employer] Address 75 [facility] 7 [place] [address] Care Team Providers Care Pediatric Medical Assistant Name Role Phone Lei Thacker Unavailable Unavailable Sharmila Azar DO Primary Care Provider [phone] Inactive/Transferred Primary Care Provider Unava ilable Inactive/Transferred Primary Care Provider Unava ilable Reason for Visit * Reason Comments Med Change Request Encounter Details Date Type Department Care Team (Late st Contact Info) Description 01/26/2025 Oneyda Stewart [facility] MED[facility] [address] [place] [address] Sharmila Azar DO [address] [place] [address] Type 2 diabetes mellitus with diabetic polyneuropathy, with long-term current use of insulin ([facility]) Social History Tobacco Use Types Packs/Day Years [...] documented as of this encounter Care Teams Pediatric Medical Assistant Relationship Specialty Start Date End Date Sharmila Azar DO [address] [place] [address] PCP - General Family Medicine 11/02/24 06/17/25 Inactive/Transferred PCP - General 06/18/25 06/18/25 Inactive/Transferred PCP - General 08/12/25 Lei Thacker Health Navigator 09/17/24 documented as of this encounter
--- OUTSIDE RECORDS SUMMARY | 2025-10-20 10:37 | XMS_ITS | Encounter Summary ---
Author Organization [employer] Address 75 [facility] 7 [place] [address] Care Team Providers Care Video Arcade Manager Name Role Phone Francheska Tucker NP Primary Care Provider UnavailLei Paulson Unavailable Unavailable Sharmila Azar DO Primary Care Provider [phone] Inactive/Transferred Primary Care Provider Unava ilable Inactive/Transferred Primary Care Provider Unava ilable Reason for Visit * Reason Comments Med Change Request Encounter Details Date Type Department Care Team (Late st Contact Info) Description 05/26/2024 Refill Pat [facility] MEDICAL [address] [place] [address] Francheska Tucker NP Type 2 diabetes mellitus with diabetic polyneuropathy, with long-term current use of insulin ([facility]) Social History Tobacco [...] the past 12 months, has t he [employer], gas, oil or water [employer] threatened to shut off services in your [...] documented as of this encounter Care Teams Video Arcade Manager Relationship Specialty Start Date End Date Francheska Tucker NP PCP - General Family Medicine 10/25/23 11/01/24 Sharmila Azar DO [address] [place] [address] PCP - General Family Medicine 11/02/24 06/17/25 Inactive/Transferred PCP - General 06/18/25 06/18/25 Inactive/Transferred PCP - General 08/12/25 Lei Thacker Health Navigator 09/17/24 documented as of this encounter
--- OUTSIDE RECORDS SUMMARY | 2025-10-20 10:37 | XMS_ITS | Encounter Summary ---
Author Organization [employer] Address 75 [facility] 7t [place] [address] Care Team Providers Care Brineyard Supervisor Name Role Phone Francheska Tucker NP Primary Care Provider UnavailLei Paulson Unavailable Unavailable Sharmila Azar DO Primary Care Provider [phone] Inactive/Transferred Primary Care Provider Unava ilable Inactive/Transferred Primary Care Provider Unava ilable Encounter Details Date Type Department Care Team (Late st Contact Info) Description 07/25/2024 Orders Only [facility] [address] [place] [address] Francheska Tucker NP Social History Tobacco Use Types Packs/Day Years [...] the past 12 months, has t he [employer], gas, oil or water company threatened to [...] EDT) Blood Venous blood specimen / Unknown us Francheska Tucker NP LAB BLOOD ORDERABLES Final Resul t * XR Tibia Fibula 2 Views Right (07/23/2024 9:00 AM EDT) Anatomical Region Laterality Modality Lower Extremities, Lower Leg Right Rad iographic Imaging us Francheska Tucker CUSTOMER SUPPORT COORDINATOR IMG XR PROCEDURES Final Result documented in this encounter Visit Diagnoses Not on filedocumented in this encounter Additional Health Concerns Assessment Noted Time PHQ-9 Depression Total Score: 20 024 7:38 AM EDT documented as of this encounter Care Teams Brineyard Supervisor Relationship Specialty Start Date End Date Francheska Tucker NP PCP - General Family Medicine 10/25/23 11/01/24 Sharmila Azar DO [address] [place] [address] PCP - General Family Medicine 11/02/24 06/17/25 Inactive/Transferred PCP - General 06/18/25 06/18/25 Inactive/Transferred PCP - General 08/12/25 Lei Thacker Health Navigator 09/17/24 documented as of this encounter
--- OUTSIDE RECORDS SUMMARY | 2025-10-20 10:37 | XMS_ITS | Encounter Summary ---
Author Organization [employer] Address 75 [facility] 7t [place] [address] Care Team Providers Care Airline Manager Name Role Phone Lei Thacker Unavailable Unavailable Inactive/Transferred Primary Care Provider Unava ilable Encounter Details Date Type Department Care Team (Late st Contact Info) Description 07/17/2025 Orders Only Pat [facility] MEDICAL [address] [place] [address] Sharmila Azar DO [address] [place] [address] Arthralgia of both knees (Primary Dx); Lymphedema; [...] Expected: 07/23/2025 (Approximate), Expires: 07/23/2026 Blood culture [id number] Microbiology Routine Abnormal CBC ESR raised Expected: 07/23/2025, Expires: 07/23/2026 documented as of this encounter Procedures Procedure Name Priority Date/Time Associated Diagnosis Comments CBC WITH AUTO DIFFERENTIAL Routine 07/20/2025 9:20 AM EDT Arthralgia of both knees Lymphedema COMPREHENSIVE METABOLIC PANEL Routine 07/20/2025 9:20 AM EDT Arthralgia of both knees Lymphedema documented in this encounter Results * (ABNORMAL) Comprehensive Metabolic Panel [[id number]] (07/20/2025 9:20 AM EDT) Glucose 143(H) 70 [...] Resulting Agency Comment Performed at: 01 - [address] [id number] Box Truck Washer: Megan Curry MD, Phone: [phone] us Sharmila Azar DO LAB BLOOD ORDERABLES [...] Resulting Agency Comment Performed at: 01 - [address] [id number] Box Truck Washer: Megan Curry MD, Phone: [phone] us Sharmila Azar DO LAB BLOOD ORDERABLES [...] documented as of this encounter Care Teams Airline Manager Relationship Specialty Start Date End Date Inactive/Transferred PCP - General 08/12/25 Lei Thacker Health Navigator 09/17/24 documented as of this encounter
--- OUTSIDE RECORDS SUMMARY | 2025-10-20 10:37 | XMS_ITS | Encounter Summary ---
Author Organization [email or web address] Address 75 [facility] 7 [place] [address] Care Team Providers Care Networking Engineer Name Role Phone Lei Thacker Unavailable Unavailable Sharmila Azar DO Primary Care Provider [phone] Inactive/Transferred Primary Care Provider Unava ilable Inactive/Transferred Primary Care Provider Unava ilable Reason for Visit * Reason Comments Med Change Request Encounter Details Date Type Department Care Team (Late st Contact Info) Description 12/25/2024 Refill Pat [facility] MED[facility] [address] [place] [address] Sharmila Azar DO [address] [place] [address] Mild intermittent asthma without complication Social History [...] t he electric, gas, oil or water [employer] threatened to shut off services in your [...] documented as of this encounter Care Teams Networking Engineer Relationship Specialty Start Date End Date Sharmila Azar DO [address] [place] [address] PCP - General Family Medicine 11/02/24 06/17/25 Inactive/Transferred PCP - General 06/18/25 06/18/25 Inactive/Transferred PCP - General 08/12/25 Lei Thacker Health Navigator 09/17/24 documented as of this encounter
--- OUTSIDE RECORDS SUMMARY | 2025-10-20 10:37 | XMS_ITS | Encounter Summary ---
Author Organization [employer] Address [address] [place] [address] 7 [place] [address] Care Team Providers Care Protective Services Case Worker Name Role Phone Shilpa Miller CNP Primary Care Provider [phone] Francheska Tucker NP Primary Care Provider UnavailLei Paulson Unavailable Unavailable Sharmila Azar DO Primary Care Provider [phone] Inactive/Transferred Primary Care Provider Unava ilable Inactive/Transferred Primary Care Provider Unava ilable Encounter Details Date Type Department Care Team (Late st Contact Info) Description 01/31/2023 Abstract Pat [facility] MED[facility] [address] [place] [address] Shilpa Miller CNP [address] [place] [address] Social History Tobacco Use Types Packs/Day Years [...] on filedocumented in this encounter Care Teams Protective Services Case Worker Relationship Specialty Start Date End Date Shilpa Miller CNP [address] [place] [address] PCP - General Family Medicine 10/16/22 10/24/23 Francheska Tucker NP [address] [place] [address] PCP - General Family Medicine 10/25/23 11/01/24 Sharmila Azar DO [address] [place] [place] [address] PCP - General Family Medicine 11/02/24 06/17/25 Inactive/Transferred PCP - General 06/18/25 06/18/25 Inactive/Transferred PCP - General 08/12/25 Lei Thacker Health Navigator 09/17/24 documented as of this encounter
--- OUTSIDE RECORDS SUMMARY | 2025-10-20 10:37 | XMS_ITS | Encounter Summary ---
Author Organization [employer] Address 75 [facility] 7 [place] [address] Care Team Providers Care Coffee Farmer Name Role Phone Francheska Tucker NP Primary Care Provider UnavailLei Paulson Unavailable Unavailable Sharmila Azar DO Primary Care Provider [phone] Inactive/Transferred Primary Care Provider Unava ilable Inactive/Transferred Primary Care Provider Unava ilable Reason for Visit * Reason Comments Med Change Request Encounter Details Date Type Department Care Team (Late st Contact Info) Description 2024 Refill Pat [facility] MEDICAL [address] [place] [phone] Francheska Tucker NP Type 2 diabetes mellitus with diabetic polyneuropathy, with long-term current use of insulin ([facility]) Social History Tobacco Use Types Packs/Day Years [...] the past 12 months, has t he [employer], gas, oil or water [employer] threatened to shut off services in your [...] documented as of this encounter Care Teams Coffee Farmer Relationship Specialty Start Date End Date Francheska Tucker NP PCP - General Family Medicine 10/25/23 11/01/24 Sharmila Azar DO [address] [place] [address] PCP - General Family Medicine 11/02/24 06/17/25 Inactive/Transferred PCP - General 06/18/25 06/18/25 Inactive/Transferred PCP - General 08/12/25 Lei Thacker Health Navigator 09/17/24 documented as of this encounter
--- OUTSIDE RECORDS SUMMARY | 2025-10-20 10:37 | XMS_ITS | Encounter Summary ---
Author Organization [employer] Address [address] [place] [address] 7t [place] [address] Care Team Providers Care Derrickman Helper Name Role Phone Francheska Tucker NP Primary Care Provider UnavailLei Paulson Unavailable Sharmila Collins DO Primary Care Provider [phone] Inactive/Transferred Primary Care Provider Unava ilable Inactive/Transferred Primary Care Provider Unava ilable Reason for Visit * Reason Onset Date Comments Med Refill 05/21/2024 Encounter Details Date Type Department Care Team (Late st Contact Info) Description 05/21/2024 Refill Pat [facility] MED[facility] [address] [place] [address] Shilpa Miller, MARIA C [address] [place] [address] Type 2 diabetes mellitus with diabetic polyneuropathy, with long-term current use of insulin ([facility]) Social History Tobacco [...] Notes * Telephone Encounter - Rosie Archer, Ricardo - 05/23/2024 4:23 PM EDT Left another VM I am going to send a [employer] message. documented in this encounter Plan of Treatment Not on file documented as of this encounter Visit Diagnoses Diagnosis Type 2 diabetes mellitus with diabetic polyneuropathy, with long-term current use of insulin (HCC) documented in this encounter Additional Health Concerns Assessment Noted Time PHQ-9 Depression Total Score: 20 024 7:38 AM EDT documented as of this encounter Care Teams Derrickman Helper Relationship Specialty Start Date End Date Francheska Tucker NP PCP - General Family Medicine 10/25/23 11/01/24 Sharmila Azar DO [address] [place] [address] PCP - General Family Medicine 11/02/24 06/17/25 Inactive/Transferred PCP - General 06/18/25 06/18/25 Inactive/Transferred PCP - General 08/12/25 Lei Thacker Health Navigator 09/17/24 documented as of this encounter
--- OUTSIDE RECORDS SUMMARY | 2025-10-20 10:37 | XMS_ITS | Encounter Summary ---
Author Organization [employer] Address 75 [facility] 7 [place] [address] Care Team Providers Care Hamper Maker Machine Name Role Phone Lei Thacker Unavailable Unavailable Sharmila Azar DO Primary Care Provider [phone] Inactive/Transferred Primary Care Provider Unava ilable Inactive/Transferred Primary Care Provider Unava ilable Reason for Visit * Reason Comments Med Refill Encounter Details Date Type Department Care Team (Late st Contact Info) Description 03/02/2025 Refill [facility] MED[facility] [address] [place] [address] Sharmila Azar DO [address] [place] [address] Anxiety; PTSD (post-traumatic stress disorder) Social History [...] documented as of this encounter Care Teams Hamper Maker Machine Relationship Specialty Start Date End Date Sharmila Azar DO [address] [place] [address] PCP - General Family Medicine 11/02/24 06/17/25 Inactive/Transferred PCP - General 06/18/25 06/18/25 Inactive/Transferred PCP - General 08/12/25 Lei Thacker Health Navigator 09/17/24 documented as of this encounter
--- OUTSIDE RECORDS SUMMARY | 2025-10-20 10:37 | XMS_ITS | Encounter Summary ---
Author Organization [facility] Address [address] [place] [address] 7 [place] [address] Care Team Providers Care Crate Repairer Name Role Phone Lei Thacker Unavailable Unavailable Sharmila Azar DO Primary Care Provider [phone] Inactive/Transferred Primary Care Provider Unava ilable Inactive/Transferred Primary Care Provider Unava ilable Reason for Visit * Reason Onset Date Comments Med Refill 02/18/2025 Encounter Details Date Type Department Care Team (Late st Contact Info) Description 02/18/2025 Refill [place] [facility] MEDICAL [address] [place] [address] Sharmila Azar DO [address] [place] [address] Anxiety; PTSD (post-traumatic stress disorder) Social History [...] documented as of this encounter Care Teams Crate Repairer Relationship Specialty Start Date End Date Sharmila Azar DO [address] [place] [address] PCP - General Family Medicine 11/02/24 06/17/25 Inactive/Transferred PCP - General 06/18/25 06/18/25 Inactive/Transferred PCP - General 08/12/25 Lei Thacker Health Navigator 09/17/24 documented as of this encounter
--- OUTSIDE RECORDS SUMMARY | 2025-10-20 10:37 | XMS_ITS | Encounter Summary ---
Author Organization [employer] Address [address] [facility] [employer] [address] [employer] 7t [place] [address] Care Team Providers Care Structural Welder Name Role Phone Francheska Tucker NP Primary Care Provider UnavailLei Paulson Unavailable Sharmila Collins DO Primary Care Provider [phone] Inactive/Transferred Primary Care Provider Unava ilable Inactive/Transferred Primary Care Provider Unava ilable Reason for Visit * Reason Comments Med Change Request Encounter Details Date Type Department Care Team (Late st Contact Info) Description 01/14/2024 Oneyda Stewart [facility] [address] [place] [address] Shilpa Miller, WASHCLOTH FOLDER [address] [place] [address] Type 2 diabetes mellitus with diabetic polyneuropathy, with long-term current use of insulin ([facility]) Social History Tobacco Use Types [...] the past 12 months, has t he Drive, gas, oil or water [employer] threatened to shut off services in your [...] was filled out yesterday and faxed to [employer] there was another TE on this. documented in this encounter Plan of Treatment Not on file documented as of this encounter Visit Diagnoses Diagnosis Type 2 diabetes mellitus with diabetic polyneuropathy, with long-term current use of insulin (HCC) documented in this encounter Care Teams Structural Welder Relationship Specialty Start Date End Date Francheska Tucker NP PCP - General Family Medicine 10/25/23 11/01/24 Sharmila Azar DO [address] [place] [address] PCP - General Family Medicine 11/02/24 06/17/25 Inactive/Transferred PCP - General 06/18/25 06/18/25 Inactive/Transferred PCP - General 08/12/25 Lei Thacker Health Navigator 09/17/24 documented as of this encounter
--- OUTSIDE RECORDS SUMMARY | 2025-10-20 10:37 | XMS_ITS | Encounter Summary ---
Author Organization [employer] Address [address] [facility] 7t [place] [address] Care Team Providers Care Produce Associate Name Role Phone Lei Thacker Unavailable Unavailable Sharmila Azar Primary Care Provider [phone] Inactive/Transferred Primary Care Provider Unava ilable Inactive/Transferred Primary Care Provider Unava ilable Reason for Visit * Reason Onset Date Comments Med Refill 02/09/2025 Encounter Details Date Type Department Care Team (Late st Contact Info) Description 02/09/2025 Refill [place] [facility] MEDICAL [address] [place] [address] Francheska Tucker NP Type 2 diabetes mellitus with diabetic polyneuropathy [...] documented as of this encounter Care Teams Produce Associate Relationship Specialty Start Date End Date Sharmila Azar DO [address] [place] [address] PCP - General Family Medicine 11/02/24 06/17/25 Inactive/Transferred PCP - General 06/18/25 06/18/25 Inactive/Transferred PCP - General 08/12/25 Lie Thacker Health Navigator 09/17/24 documented as of this encounter
--- OUTSIDE RECORDS SUMMARY | 2025-10-20 10:37 | XMS_ITS | Encounter Summary ---
Author Organization [employer] Address [address] [place] [address] 7t [place] [address] Care Team Providers Care Solar Photovoltaic Electrician Name Role Phone Francheska Tucker NP Primary Care Provider UnavailLei Paulson Unavailable Unavailable Sharmila Azar DO Primary Care Provider Inactive/Transferred Primary Care Provider Unava ilable Inactive/Transferred Primary Care Provider Unava ilable Encounter Details Date Type Department Care Team (Late st Contact Info) Description 07/04/[address] [facility] MEDICAL [address] [place] [address] Francheska Tucker NP Social History Tobacco Use [...] documented as of this encounter Care Teams Solar Photovoltaic Electrician Relationship Specialty Start Date End Date Francheska Tucker NP PCP - General Family Medicine 10/25/23 11/01/24 Sharmila Azar DO [address] [place] [address] PCP - General Family Medicine 11/02/24 06/17/25 Inactive/Transferred PCP - General 06/18/25 06/18/25 Inactive/Transferred PCP - General 08/12/25 Lei Thacker Health Navigator 09/17/24 documented as of this encounter
--- OUTSIDE RECORDS SUMMARY | 2025-10-20 10:37 | XMS_ITS | Encounter Summary ---
Author Organization [employer] Address [address] [place] [address] 7 [place] [address] Care Team Providers Care Medical Appliance Maker Name Role Phone Francheska Tucker NP Primary Care Provider UnavailLei Paulson Unavailable Sharmila Collins DO Primary Care Provider [phone] Inactive/Transferred Primary Care Provider Unava ilable Inactive/Transferred Primary Care Provider Unava ilable Reason for Visit * Reason Comments Med Change Request Encounter Details Date Type Department Care Team (Late st Contact Info) Description 05/12/2024 Oneyda Stewart [facility] MEDICAL [address] [place] [address] Shilpa Miller, MARIA C [address] [place] [address] Psychophysiological insomnia Social History Tobacco Use Types [...] as of this encounter Care Teams Medical Appliance Maker Relationship Specialty Start Date End Date Francheska Tucker NP PCP - General Family Medicine 10/25/23 11/01/24 Sharmila Azar DO [address] [place] [address] PCP - General Family Medicine 11/02/24 06/17/25 Inactive/Transferred PCP - General 06/18/25 06/18/25 Inactive/Transferred PCP - General 08/12/25 Lei Thacker Health Navigator 09/17/24 documented as of this encounter
--- OUTSIDE RECORDS SUMMARY | 2025-10-20 10:37 | XMS_ITS | Patient Health Record ---
Author Organization [facility] [facility] Address [address] [facility] [address] [place] [address] Care Team Providers Care Sales Expert Name Role Phone Laisha Castañeda Unavailable [phone] Reason For Referral No Information Medications Medication SIG (Take, Route, Frequency, Duration) Notes Start Date End Date Status Viibryd 40MG ORAL; Duration: - [facility] 04/28/2014 Active Vitamin D3 1000 IU ORAL daily; Duration: - [facility] 2013 Active Aspirin EC 81MG 1 ORAL daily; Durati on: - [facility] 04/28/2014 Active Nebulizer ORAL; Duration: - [facility] 04/28/2014 Active oxyCODONE HCl 5MG ORAL; Duration: - [facility] 04/28/2014 Active Pravastatin Sodium 20MG 1 ORAL daily; Du ration: - [facility] 04/28/2014 Active Singulair 10MG ORAL; Duration: - [facility] 04/28/2014 Active Combivent 103-18 2 INHALE four times daily; Duration: - [facility] 04/28/2014 Active KlonoPIN 0.5MG ORAL four times shannon y; Duration: [facility] 04/28/2014 Active Levothyroxine Sodium 125MCG 1 ORAL daily ; Duration: - [facility] 04/28/2014 Active metFORMIN HCl ER 500MG ORAL; Duration: - [facility] 04/28/20 14 Active Problems Problem Type SNOMED Code ICD Code Onset Dates Problem Status W/U Status Risk Notes Problem Hypothyroidism (58604051) Unspecified hypothyroidism (244.9) Active confirmed Problem Type II diabetes mellitus without complication (698262999) Diabetes mellitus without mention of complication, type II or unspecified type, not stated as uncontrolled (250.00) Active confirmed Problem Pure hypercholesterolemia (246892487) Pure hypercholesterolemia (272.0) Active confirmed Problem Morbid obesity (733026643) Morbid obesity (278.01) Active confirmed Problem Schizoaffective disorder (52552706) Schizoaffective disorder, unspecified (295.70) Active confirmed Problem Panic disorder with agoraphobia (07879253) Agoraphobia with panic disorder (300.21) Active confirmed Problem Obsessive-compulsive disorder (853235899) Obsessive-compulsive disorders (300.3) Active confirmed Problem Posttraumatic stress disorder (97153180) Posttraumatic stress disorder (309.81) Active confirmed Problem Attention deficit hyperactivity disorder (594130627) 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) Active confirmed Problem Migraine (disorder) (51682439) Migraine, unspecified without mention of intractable migraine without mention of status migrainosus (346.90) Active confirmed Problem Asthma (disorder) (118221020) Asthma, unspecified, unspecified status (493.90) Active confirmed Problem Sleep apnea (37811700) Unspecified sleep apnea (780.57) Active confirmed Problem Hypertension (48005436) Hypertension (401.9) Active confirmed Plan Of Treatment No Information Insurance Providers Payer Name Payer Address Payer Phone Subscriber Number Group Number Insured Name Patient Relationship to Insured Coverage Start Date Coverage End Date MEDICARE [address] [place] [id number] SEBATSIÁN GARCIA Self - patient is the insured [...]
--- OUTSIDE RECORDS SUMMARY | 2025-10-20 10:37 | XMS_ITS | Encounter Summary ---
Author Organization [employer] Address [address] [facility] 7 [place] [address] Care Team Providers Care Clay Processing Labourer Name Role Phone Lei Thacker Unavailable Unavailable Sharmila Azar DO Primary Care Provider [phone] Inactive/Transferred Primary Care Provider Unava ilable Inactive/Transferred Primary Care Provider Unava ilable Reason for Visit * Reason Onset Date Comments Med Refill 12/24/2024 Encounter Details Date Type Department Care Team (Late st Contact Info) Description 12/24/2024 Refill [place] [facility] MEDICAL 73 [place] [address] Sharmila Azar DO 73 [place] [address] Anxiety; PTSD (post-traumatic stress disorder) Social History [...] documented as of this encounter Care Teams Clay Processing Labourer Relationship Specialty Start Date End Date Sharmila Azar DO [address] [place] [address] PCP - General Family Medicine 11/02/24 06/17/25 Inactive/Transferred PCP - General 06/18/25 06/18/25 Inactive/Transferred PCP - General 08/12/25 Lei Thacker Health Navigator 09/17/24 documented as of this encounter
--- OUTSIDE RECORDS SUMMARY | 2025-10-20 10:38 | XMS_ITS | Encounter Summary ---
Author Organization [employer] Address [address] [facility] [address] 7[address] [place] [address] Care Team Providers Care Hands Assembler Name Role Phone Lei Thacker Unavailable Unavailable King Sharmila Primary Care Provider [phone] Inactive/Transferred Primary Care Provider Unava ilable Inactive/Transferred Primary Care Provider Unava ilable Encounter Details Date Type Department Care Team (Late st Contact Info) Description 11/21/2024 Orders Only [facility] MEDICAL [address] [place] [address] Provider, MD Sharad Social History Tobacco Use [...] documented as of this encounter Care Teams Hands Assembler Relationship Specialty Start Date End Date Sharmila Azar DO 73 [place] [address] PCP - General Family Medicine 11/02/24 06/17/25 Inactive/Transferred PCP - General 06/18/25 06/18/25 Inactive/Transferred PCP - General 08/12/25 Lei Thacker Health Navigator 09/17/24 documented as of this encounter
--- OUTSIDE RECORDS SUMMARY | 2025-10-20 10:38 | XMS_ITS | Encounter Summary ---
Author Organization [employer] Address [address] [place] [address] 7 [place] [address] Care Team Providers Care Rack Loader Name Role Phone Shilpa Miller MARIA C Primary Care Provider [phone] Francheska Tucker NP Primary Care Provider UnavailLei Paulson Unavailable Unavailable Sharmila Azar DO Primary Care Provider [phone] Inactive/Transferred Primary Care Provider Unava ilable Inactive/Transferred Primary Care Provider Unava ilable Encounter Details Date Type Department Care Team (Late st Contact Info) Description 12/01/2022 Orders Only [facility] MEDICAL [address] [place] [address] Avelina Fulton FNP Type 2 diabetes mellitus with diabetic polyneuropathy, with long-term current use of insulin ([facility]) (Primary Dx) Social History Tobacco Use Types [...] Score 0 12/01/2022 2:16 PM Alison Sagastume RMRicardo documented as of this encounter Plan of Treatment Not on file documented as of this encounter Visit Diagnoses Diagnosis Type 2 diabetes mellitus with diabetic polyneuropathy, with long-term current use of insulin (HCC)- Primary documented in this encounter Care Teams Rack Loader Relationship Specialty Start Date End Date Shilpa Miller CNP [address] [place] [address] PCP - General Family Medicine 10/16/22 10/24/23 Francheska Tucker NP [address] [place] [address] PCP - General Family Medicine 10/25/23 11/01/24 Sharmila Azar DO [address] [place] [address] PCP - General Family Medicine 11/02/24 06/17/25 Inactive/Transferred PCP - General 06/18/25 06/18/25 Inactive/Transferred PCP - General 08/12/25 Lei Thacker Health Navigator 09/17/24 documented as of this encounter
--- OUTSIDE RECORDS SUMMARY | 2025-10-20 10:38 | XMS_ITS | Encounter Summary ---
Author Organization [employer] Address [address] [place] [address] 7 [place] [address] Care Team Providers Care Field Technical Support Consultant Name Role Phone Francheska Tucker NP Primary Care Provider UnavailLei Paulson Unavailable Unavailable Sharmila Azar DO Primary Care Provider [phone] Inactive/Transferred Primary Care Provider Unava ilable Inactive/Transferred Primary Care Provider Unava ilable Reason for Visit * Reason Comments Med Change Request Encounter Details Date Type Department Care Team (Late st Contact Info) Description 01/16/2024 Oneyda Stewart [facility] MEDICAL [address] [place] [address] Amira Singh FNP Social History Tobacco Use [...] RX filled out yesterday and faxed to [place] [facility] [place] documented in this encounter Plan of Treatment Not on file documented as of this encounter Visit Diagnoses Not on filedocumented in this encounter Care Teams Field Technical Support Consultant Relationship Specialty Start Date End Date Francheska Tucker NP PCP - General Family Medicine 10/25/23 11/01/24 Sharmila Azar DO [address] [place] [address] PCP - General Family Medicine 11/02/24 06/17/25 Inactive/Transferred PCP - General 06/18/25 06/18/25 Inactive/Transferred PCP - General 08/12/25 Lei Thacker Health Navigator 09/17/24 documented as of this encounter
--- OUTSIDE RECORDS SUMMARY | 2025-10-20 10:38 | XMS_ITS | Encounter Summary ---
Author Organization [employer] Address [address] [place] [address] 7 [place] [address] Care Team Providers Care Accounting Software Specialist Name Role Phone Shilpa Miller CNP Primary Care Provider [phone] Francheska Tucker NP Primary Care Provider UnavailLei Paulson Unavailable Unavailable Sharmila Azar DO Primary Care Provider [phone] Inactive/Transferred Primary Care Provider Unava ilable Inactive/Transferred Primary Care Provider Unava ilable Encounter Details Date Type Department Care Team (Late st Contact Info) Description 11/30/2022 Abstract Pat [facility] MEDICAL 73 [place] [address] Shilpa Miller CNP [address] [place] [address] Social History Tobacco Use Types Packs/Day Years [...] Not at all 12/01/2022 2:16 PM EST MarkAlison PJ Feeling down, depressed, or hopeless Not at all 12/01/2022 2:16 PM EST MarkAlison RMRicardo Patient Health Questionnaire -2 Score 0 12/01/2022 2:16 PM EST Mark AlisonPJ documented as of this encounter Plan of Treatment Not on file documented as of this encounter Visit Diagnoses Not on filedocumented in this encounter Care Teams Accounting Software Specialist Relationship Specialty Start Date End Date Shilpa Miller CNP [address] [place] [address] PCP - General Family Medicine 10/16/22 10/24/23 Francheska Tucker NP [address] [place] [address] PCP - General Family Medicine 10/25/23 11/01/24 Sharmila Azar DO [address] [place] [address] PCP - General Family Medicine 11/02/24 06/17/25 Inactive/Transferred PCP - General 06/18/25 06/18/25 Inactive/Transferred PCP - General 08/12/25 Lei Thacker Health Navigator 09/17/24 documented as of this encounter
--- OUTSIDE RECORDS SUMMARY | 2025-10-20 10:38 | XMS_ITS | Encounter Summary ---
Author Organization [employer] Address [address] [place] [address] 7 [place] [address] Care Team Providers Care Silver Miner Name Role Phone Lei Thacker Unavailable Unavailable DoeSharmila Primary Care Provider [phone] Inactive/Transferred Primary Care Provider Unava ilable Inactive/Transferred Primary Care Provider Unava ilable Reason for Visit * Reason Onset Date Comments Med Refill 11/05/2024 Encounter Details Date Type Department Care Team (Late st Contact Info) Description 11/05/2024 Refill Pat [facility] MEDICAL [address] [place] [address] Shilpa Miller, RACE STEWARD [address] [place] [address] Type 2 diabetes mellitus with diabetic polyneuropathy [...] documented as of this encounter Care Teams Silver Miner Relationship Specialty Start Date End Date Sharmila Azar DO [address] [place] [address] PCP - General Family Medicine 11/02/24 06/17/25 Inactive/Transferred PCP - General 06/18/25 06/18/25 Inactive/Transferred PCP - General 08/12/25 Lei Thacker Health Navigator 09/17/24 documented as of this encounter
--- OUTSIDE RECORDS SUMMARY | 2025-10-20 10:38 | XMS_ITS | Encounter Summary ---
Author Organization [email or web address] Address [address] [facility] 7 [place] [address] Care Team Providers Care Form Presser Name Role Phone Lei Thacker Unavailable Unavailable DoeSharmila Primary Care Provider [phone] Inactive/Transferred Primary Care Provider Unava ilable Inactive/Transferred Primary Care Provider Unava ilable Reason for Visit * Reason Comments Med Refill Encounter Details Date Type Department Care Team (Late st Contact Info) Description 11/09/2024 Refill [place] [facility] MED[facility] [address] [place] [address] Francheska Tucker NP Acquired hypothyroidism Social History Tobacco Use Types [...] documented as of this encounter Care Teams Form Presser Relationship Specialty Start Date End Date Sharmila Azar DO [address] [place] [address] PCP - General Family Medicine 11/02/24 06/17/25 Inactive/Transferred PCP - General 06/18/25 06/18/25 Inactive/Transferred PCP - General 08/12/25 Lei Thacker Health Navigator 09/17/24 documented as of this encounter
--- OUTSIDE RECORDS SUMMARY | 2025-10-20 10:38 | XMS_ITS | Encounter Summary ---
Author Organization [employer] Address [address] [facility] 7 [place] [address] Care Team Providers Care Data Processing Manager Name Role Phone Lei Thacker Unavailable Unavailable Sharmila Azar DO Primary Care Provider [phone] Inactive/Transferred Primary Care Provider Unava ilable Inactive/Transferred Primary Care Provider Unava ilable Reason for Visit * Reason Onset Date Comments Med Refill 12/11/2024 Encounter Details Date Type Department Care Team (Late st Contact Info) Description 12/11/2024 Refill [place] [facility] MEDICAL [address] [place] [address] Sharmila Azar DO [address] [place] [address] Anxiety; PTSD (post-traumatic stress disorder) Social History [...] your housing situation today? I have ann daivs 12/07/[address] you li [...] documented as of this encounter Care Teams Data Processing Manager Relationship Specialty Start Date End Date Sharmila Azar DO [address] [place] [address] PCP - General Family Medicine 11/02/24 06/17/25 Inactive/Transferred PCP - General 06/18/25 06/18/25 Inactive/Transferred PCP - General 08/12/25 Lei Thacker Health Navigator 09/17/24 documented as of this encounter
--- OUTSIDE RECORDS SUMMARY | 2025-10-20 10:38 | XMS_ITS | Encounter Summary ---
Author Organization [employer] Address [address] [facility] 7 [place] [address] Care Team Providers Care Mattress Weaver Name Role Phone Lei Thacker Unavailable Unavailable Sharmila Azar DO Primary Care Provider [phone] Inactive/Transferred Primary Care Provider Unava ilable Inactive/Transferred Primary Care Provider Unava ilable Reason for Visit * Reason Onset Date Comments Med Refill 11/27/2024 Encounter Details Date Type Department Care Team (Late st Contact Info) Description 11/27/2024 Refill Pat [facility] MEDICAL [address] [place] [address] Sharmila Azar DO [address] [place] [address] Anxiety; PTSD (post-traumatic stress disorder) Social History [...] documented as of this encounter Care Teams Mattress Weaver Relationship Specialty Start Date End Date Sharmila Azar DO [address] [place] [address] PCP - General Family Medicine 11/02/24 06/17/25 Inactive/Transferred PCP - General 06/18/25 06/18/25 Inactive/Transferred PCP - General 08/12/25 Lei Thacker Health Navigator 09/17/24 documented as of this encounter
--- OUTSIDE RECORDS SUMMARY | 2025-10-20 10:38 | XMS_ITS | Encounter Summary ---
Author Organization [employer] Address [address] [place] [address] 7 [place] [address] Care Team Providers Care Wet Finisher Name Role Phone Shilpa Miller CNP Primary Care Provider [phone] Francheska Tucker NP Primary Care Provider UnavailLei Paulson Unavailable Unavailable Sharmila Azar DO Primary Care Provider [phone] Inactive/Transferred Primary Care Provider Unava ilable Inactive/Transferred Primary Care Provider Unava ilable Encounter Details Date Type Department Care Team (Late st Contact Info) Description 10/26/2022 Abstract Pat [facility] MEDICAL [address] [place] [address] Shilpa Miller CNP [address] [place] [address] Social History Tobacco Use Types Packs/Day Years [...] Benign Anatomical Region Laterality Modality Other Result [facility] Historical Provider HEALTH MAINTENANCE Final Result documented in this encounter Visit Diagnoses Not on filedocumented in this encounter Care Teams Wet Finisher Relationship Specialty Start Date End Date Shilpa Miller CNP [address] [place] [address] PCP - General Family Medicine 10/16/22 10/24/23 Francheska Tucker NP [address] [place] [address] PCP - General Family Medicine 10/25/23 11/01/24 Sharmila Azar DO [address] [place] [address] PCP - General Family Medicine 11/02/24 06/17/25 Inactive/Transferred PCP - General 06/18/25 06/18/25 Inactive/Transferred PCP - General 08/12/25 eLi Thacker Health Navigator 09/17/24 documented as of this encounter
--- OUTSIDE RECORDS SUMMARY | 2025-10-20 10:38 | XMS_ITS | Encounter Summary ---
Author Organization [employer] Address [address] [place] [address] [address] [place] [address] Care Team Providers Care Vocational Nurse Lvn Name Role Phone Shilpa Miller CNP Primary Care Provider [phone] Francheska Tucker NP Primary Care Provider UnavailLei Paulson Unavailable Unavailable Sharmila Azar DO Primary Care Provider [phone] Inactive/Transferred Primary Care Provider Unava ilable Inactive/Transferred Primary Care Provider Unava ilable Encounter Details Date Type Department Care Team (Late st Contact Info) Description 10/27/2022 Abstract Pat [facility] [address] [place] [address] Shilpa Miller CNP [address] [place] [address] Social History Tobacco Use Types Packs/Day Years [...] on filedocumented in this encounter Care Teams Vocational Nurse Lvn Relationship Specialty Start Date End Date Shilpa Miller CNP [address] [place] [address] PCP - General Family Medicine 10/16/22 10/24/23 Francheska Tucker NP [address] [place] [address] PCP - General Family Medicine 10/25/23 11/01/24 Sharmila Azar DO [address] [place] [address] PCP - General Family Medicine 11/02/24 06/17/25 Inactive/Transferred PCP - General 06/18/25 06/18/25 Inactive/Transferred PCP - General 08/12/25 Lei Thacker Health Navigator 09/17/24 documented as of this encounter
--- OUTSIDE RECORDS SUMMARY | 2025-10-20 10:38 | XMS_ITS | Encounter Summary ---
Author Organization [employer] Address [address] [place] [address] 7 [place] [address] Care Team Providers Care Police Patrol Lieutenant Name Role Phone Shilpa Miller CNP Primary Care Provider [phone] Francheska Tucker NP Primary Care Provider UnavailLei Paulson Unavailable Unavailable Sharmila Azar DO Primary Care Provider [phone] Inactive/Transferred Primary Care Provider Unava ilable Inactive/Transferred Primary Care Provider Unava ilable Encounter Details Date Type Department Care Team (Late st Contact Info) Description 11/30/2022 Abstract Pat [facility] [address] [place] [address] Shilpa Miller CNP [address] [place] [address] Social History Tobacco Use Types Packs/Day Years [...] on filedocumented in this encounter Care Teams [employer] Lieutenant Relationship Specialty Start Date End Date Shilpa Miller CNP [address] [place] [address] PCP - General Family Medicine 10/16/22 10/24/23 Francheska Tucker NP [address] [place] [address] PCP - General Family Medicine 10/25/23 11/01/24 Sharmila Azar DO [address] [place] [address] PCP - General Family Medicine 11/02/24 06/17/25 Inactive/Transferred PCP - General 06/18/25 06/18/25 Inactive/Transferred PCP - General 08/12/25 Lei Thacker Health Navigator 09/17/24 documented as of this encounter
== END 2025-10-20 10:17 | disposition home or self-care (01) ==
LOC: HO.RHES 09:15
PROVIDERS: PCP Internal Medicine; Visit Provider Student in an Organized Health Care Education/Training Program
DX: E66.813 Obesity, class 3 (principal); Z68.44 Body mass index [BMI] 60.0-69.9, adult; R70.0 Elevated erythrocyte sedimentation rate; G43.719 Chronic migraine without aura, intractable, without status migrainosus; M15.0 Primary generalized (osteo)arthritis; M79.7 Fibromyalgia; M19.90 Unspecified osteoarthritis, unspecified site
CPT/HCPCS: 99205

== ENCOUNTER 2025-10-22 09:41 | Outpatient (REF) | payer MEDICARE, MEDICAID, SELFPAY ==
--- NOTE | ~2025-10-22 | XR_ITS ---
EXAMINATION: XR HAND, RIGHT XR HAND, LEFT XR WRIST, RIGHT XR WRIST, LEFT CLINICAL INFORMATION: M19.90 - Unspecified osteoarthritis, unspecified site COMPARISON: None available. TECHNIQUE: PA, lateral, and oblique views of each hand and PA, lateral, and oblique views of each wrist. FINDINGS: RIGHT HAND AND WRIST : No fracture or dislocation. Ulnar minus variance. There is increased extension at the IP joint of the thumb. There is arthritis at the first ALF joint with joint space narrowing and osteophyte formation. There may be mild radial subluxation of the first metacarpal bone with respect to the trapezium. There are degenerative changes at the distal radial ulnar joint. Joint spaces are otherwise normal. Bone mineralization is normal. Soft tissues are normal. LEFT HAND AND WRIST: No fracture or dislocation. Ulnar minus variance. There are degenerative changes at the distal radial ulnar joint and first ALF joint with joint space narrowing. May be mild radial subluxation of the first metacarpal bone with respect to the trapezium. Joint spaces otherwise normal. Bone mineralization is normal. Soft tissues are normal. XR/XR Wrist Seamus 2V IMPRESSION: Ulnar minus variance and arthritis at the distal radial ulnar joint and first ALF joints, right greater than left. Increased extension at the IP joint of the right thumb. Electronically signed by: Denisse Urban MD 10/22/2025 11:03 AM DANILO
--- NOTE | ~2025-10-22 | XR_ITS ---
EXAMINATION: XR HAND, RIGHT XR HAND, LEFT XR WRIST, RIGHT XR WRIST, LEFT CLINICAL INFORMATION: M19.90 - Unspecified osteoarthritis, unspecified site COMPARISON: None available. TECHNIQUE: PA, lateral, and oblique views of each hand and PA, lateral, and oblique views of each wrist. FINDINGS: RIGHT HAND AND WRIST : No fracture or dislocation. Ulnar minus variance. There is increased extension at the IP joint of the thumb. There is arthritis at the first PENITENTIARY joint with joint space narrowing and osteophyte formation. There may be mild radial subluxation of the first metacarpal bone with respect to the trapezium. There are degenerative changes at the distal radial ulnar joint. Joint spaces are otherwise normal. Bone mineralization is normal. Soft tissues are normal. LEFT HAND AND WRIST: No fracture or dislocation. Ulnar minus variance. There are degenerative changes at the distal radial ulnar joint and first PENITENTIARY joint with joint space narrowing. May be mild radial subluxation of the first metacarpal bone with respect to the trapezium. Joint spaces otherwise normal. Bone mineralization is normal. Soft tissues are normal. XR/XR Hand Seamus 2V IMPRESSION: Ulnar minus variance and arthritis at the distal radial ulnar joint and first PENITENTIARY joints, right greater than left. Increased extension at the IP joint of the right thumb. Electronically signed by: Denisse Urban MD 10/22/2025 11:03 AM DANILO
--- NOTE | ~2025-10-22 | XR_ITS ---
EXAMINATION: XR BILATERAL HIPS WITH AP PELVIS CLINICAL INFORMATION: M19.90 - Unspecified osteoarthritis, unspecified site COMPARISON: None available. TECHNIQUE: AP view of the pelvis and 2 views views of each hip were obtained. FINDINGS: Bone alignment is normal. No fracture or dislocation. Joint spaces are normal. Soft tissues are normal. XR/XR hip BI w PEL1V IMPRESSION: Normal pelvis and hips. Electronically signed by: Denisse Urban MD 10/22/2025 10:44 AM DANILO
--- NOTE | ~2025-10-22 | XR_ITS ---
EXAMINATION: XR SHOULDER, bilateral CLINICAL INFORMATION: M19.90 - Unspecified osteoarthritis, unspecified site COMPARISON: None available. TECHNIQUE: Three views of both shoulders FINDINGS: Right: Bone alignment is normal. No fracture or dislocation. The glenohumeral joint is normal. There is arthritis at the acromioclavicular joint. There are small undersurface acromial osteophytes. There are degenerative changes of the greater tuberosity. There is soft tissue calcification adjacent to the greater tuberosity. Left: Bone alignment is normal. No fracture or dislocation. The glenohumeral joint is normal. There is mild osteoarthritis at the acromioclavicular joint. There is soft tissue calcification adjacent to the greater tuberosity. XR/XR Shoulder Seamus min 2V IMPRESSION: Arthritis at the acromioclavicular joints and soft tissue calcification adjacent to greater tuberosity suggesting calcific tendinitis or bursitis, right greater than left. Electronically signed by: Denisse Urban MD 10/22/2025 10:47 AM DANILO
--- OUTSIDE RECORDS SUMMARY | 2025-10-22 11:23 | XMS_ITS | Encounter Summary ---
Author Organization [employer] Address [address] [facility] 7 [place] [address] Care Team Providers Care Biological Science Aide Name Role Phone Francheska Tucker NP Primary Care Provider UnavailLei Paulson Unavailable Unavailable Sharmila Azar DO Primary Care Provider [phone] Inactive/Transferred Primary Care Provider Unava ilable Inactive/Transferred Primary Care Provider Unava ilable Reason for Visit * Reason Comments Med Change Request Encounter Details Date Type Department Care Team (Late st Contact Info) Description 05/26/2024 Refill [facility] [address] [place] [address] Francheska Tucker NP Type 2 diabetes mellitus with diabetic polyneuropathy, with long-term current use of insulin ([facility]) Social History Tobacco Use Types Packs/Day Years [...] the past 12 months, has t he [employer], gas, oil or water [employer] threatened to shut off services in your [...] documented as of this encounter Care Teams Biological Science Aide Relationship Specialty Start Date End Date Francheska Tucker NP PCP - General Family Medicine 10/25/23 11/01/24 Sharmila Azar DO [address] [place] [address] PCP - General Family Medicine 11/02/24 06/17/25 Inactive/Transferred PCP - General 06/18/25 06/18/25 Inactive/Transferred PCP - General 08/12/25 Lei Thacker Health Navigator 09/17/24 documented as of this encounter
--- OUTSIDE RECORDS SUMMARY | 2025-10-22 11:23 | XMS_ITS | Encounter Summary ---
Author Organization [employer] Address 75 [facility] 7 [place] [address] Care Team Providers Care Senior Risk Manager Name Role Phone Lei Thacker Unavailable Unavailable Sharmila Azar DO Primary Care Provider [phone] Inactive/Transferred Primary Care Provider Unava ilable Inactive/Transferred Primary Care Provider Unava ilable Reason for Visit * Reason Comments Med Change Request Encounter Details Date Type Department Care Team (Late st Contact Info) Description 03/06/2025 Chasill Pat [facility] MED[facility] [address] [place] [address] Sharmila Azar DO [address] [place] [address] Type 2 diabetes mellitus with diabetic polyneuropathy, with long-term current use of insulin ([facility]) Social History Tobacco Use Types [...] as of this encounter Care Teams Senior Risk Manager Relationship Specialty Start Date End Date Sharmila Azar DO [address] [place] [address] PCP - General Family Medicine 11/02/24 06/17/25 Inactive/Transferred PCP - General 06/18/25 06/18/25 Inactive/Transferred PCP - General 08/12/25 Lei Thacker Health Navigator 09/17/24 documented as of this encounter
--- OUTSIDE RECORDS SUMMARY | 2025-10-22 11:23 | XMS_ITS | Encounter Summary ---
Author Organization [employer] Address 75 [facility] 7t [place] [address] Care Team Providers Care Ancillary Services Manager Therapy Name Role Phone Lei Thacker Unavailable Unavailable Sharmila Azra Primary Care Provider [phone] Inactive/Transferred Primary Care Provider Unava ilable Inactive/Transferred Primary Care Provider Unava ilable Reason for Visit * Reason Onset Date Comments Med Refill 02/09/2025 Encounter Details Date Type Department Care Team (Late st Contact Info) Description 02/09/2025 Refill Pat [facility] MEDICAL [address] [place] [address] Francheska Tucker NP Type 2 diabetes mellitus [...] documented as of this encounter Care Teams Ancillary Services Manager Therapy Relationship Specialty Start Date End Date Sharmila Azar DO [address] [place] [address] PCP - General Family Medicine 11/02/24 06/17/25 Inactive/Transferred PCP - General 06/18/25 06/18/25 Inactive/Transferred PCP - General 08/12/25 Lei Thacker Health Navigator 09/17/24 documented as of this encounter
--- OUTSIDE RECORDS SUMMARY | 2025-10-22 11:23 | XMS_ITS | Encounter Summary ---
Author Organization [employer] Address [address] [place] [address] 7 [place] [address] Care Team Providers Care Returned Goods Sorter Name Role Phone Francheska Tucker NP Primary Care Provider UnavailLei Paulson Unavailable Sharmila Collins DO Primary Care Provider [phone] Inactive/Transferred Primary Care Provider Unava ilable Inactive/Transferred Primary Care Provider Unava ilable Reason for Visit * Reason Comments Med Change Request Encounter Details Date Type Department Care Team (Late st Contact Info) Description 05/12/2024 Oneyda Stewart [facility] MEDICAL [address] [place] [address] Shilpa Miller, MARIA C [address] [place] [address] Psychophysiological insomnia Social History Tobacco Use Types [...] Score 20 03/24/2024 Patient Health Questionnaire-9 Score 03/24/2024 Last [...] documented as of this encounter Care Teams Returned Goods Sorter Relationship Specialty Start Date End Date Francheska Tucker NP PCP - General Family Medicine 10/25/23 11/01/24 Sharmila Azar DO [address] [place] [address] PCP - General Family Medicine 11/02/24 06/17/25 Inactive/Transferred PCP - General 06/18/25 06/18/25 Inactive/Transferred PCP - General 08/12/25 Lei Thacker Health Navigator 09/17/24 documented as of this encounter
--- OUTSIDE RECORDS SUMMARY | 2025-10-22 11:23 | XMS_ITS | Encounter Summary ---
Author Organization [employer] Address 75 [facility] 7t [place] [address] Care Team Providers Care Ecdis N Navigation Operator Name Role Phone Lei Thacker Unavailable Unavailable Sharmila Azar Primary Care Provider [phone] Inactive/Transferred Primary Care Provider Unava ilable Inactive/Transferred Primary Care Provider Unava ilable Reason for Visit * Reason Onset Date Comments Med Refill 01/31/2025 Encounter Details Date Type Department Care Team (Late st Contact Info) Description 01/31/2025 Refill Pat [facility] MEDICAL [address] [place] [address] Francheska Tucker NP Essential (primary) hypertension Social [...] documented as of this encounter Care Teams Ecdis N Navigation Operator Relationship Specialty Start Date End Date Sharmila Azar DO [address] [place] [address] PCP - General Family Medicine 11/02/24 06/17/25 Inactive/Transferred PCP - General 06/18/25 06/18/25 Inactive/Transferred PCP - General 08/12/25 Lei Thacker Health Navigator 09/17/24 documented as of this encounter
--- OUTSIDE RECORDS SUMMARY | 2025-10-22 11:23 | XMS_ITS | Encounter Summary ---
Author Organization [employer] Address [address] [facility] [address] 7t [place] [address] Care Team Providers Care Night Warehouse Manager Name Role Phone Francheska Tucker NP Primary Care Provider UnavailLei Paulson Unavailable Unavailable Sharmila Azar DO Primary Care Provider Inactive/Transferred Primary Care Provider Unava ilable Inactive/Transferred Primary Care Provider Unava ilable Encounter Details Date Type Department Care Team (Late st Contact Info) Description 06/25/[address] [facility] MEDICAL [address] [place] [address] Provider, MD Sharad Social History Tobacco Use [...] documented as of this encounter Care Teams Night Warehouse Manager Relationship Specialty Start Date End Date Francheska Tucker NP PCP - General Family Medicine 10/25/23 11/01/24 Sharmila Azar DO 73 [place] [address] PCP - General Family Medicine 11/02/24 06/17/25 Inactive/Transferred PCP - General 06/18/25 06/18/25 Inactive/Transferred PCP - General 08/12/25 Lei Thacker Health Navigator 09/17/24 documented as of this encounter
--- OUTSIDE RECORDS SUMMARY | 2025-10-22 11:23 | XMS_ITS | Encounter Summary ---
Author Organization [employer] Address [address] [facility] 7 [place] [address] Care Team Providers Care Admissions Assistant Name Role Phone Lei Thacker Unavailable Unavailable Sharmila Azar DO Primary Care Provider [phone] Inactive/Transferred Primary Care Provider Unava ilable Inactive/Transferred Primary Care Provider Unava ilable Reason for Visit * Reason Onset Date Comments Med Refill 02/18/2025 Encounter Details Date Type Department Care Team (Late st Contact Info) Description 02/18/2025 Refill [place] [facility] MEDICAL [address] [place] [address] Sharmila Azar DO 73 [place] [address] Anxiety; PTSD (post-traumatic stress disorder) Social History [...] documented as of this encounter Care Teams Admissions Assistant Relationship Specialty Start Date End Date Sharmila Azar DO [address] [place] [address] PCP - General Family Medicine 11/02/24 06/17/25 Inactive/Transferred PCP - General 06/18/25 06/18/25 Inactive/Transferred PCP - General 08/12/25 Lei Thacker Health Navigator 09/17/24 documented as of this encounter
--- OUTSIDE RECORDS SUMMARY | 2025-10-22 11:23 | XMS_ITS | Encounter Summary ---
Author Organization [employer] Address [address] [facility] [address] 7t [place] [address] Care Team Providers Care Grades 9 Thru 12 Visiting Teacher Name Role Phone Francheska Tucker NP Primary Care Provider UnavailLei Paulson Unavailable Sharmila Collins DO Primary Care Provider [phone] Inactive/Transferred Primary Care Provider Unava ilable Inactive/Transferred Primary Care Provider Unava ilable Reason for Visit * Reason Onset Date Comments Med Refill 05/21/2024 Encounter Details Date Type Department Care Team (Late st Contact Info) Description 05/21/2024 Refill Pat [facility] MEDICAL [address] [place] [address] Shilpa Miller, MARIA C [address] [place] [address] Type 2 diabetes mellitus with diabetic polyneuropathy, with long-term current use of insulin ([facility]) Social History Tobacco Use Types [...] VM I am going to send a [employer] message. documented in this encounter Plan of Treatment Not on file documented as of this encounter Visit Diagnoses Diagnosis Type 2 diabetes mellitus with diabetic polyneuropathy, with long-term current use of insulin (HCC) documented in this encounter Additional Health Concerns Assessment Noted Time PHQ-9 Depression Total Score: 20 024 7:38 AM EDT documented as of this encounter Care Teams Grades 9 Thru 12 Visiting Teacher Relationship Specialty Start Date End Date Francheska Tucker NP PCP - General Family Medicine 10/25/23 11/01/24 Sharmila Azar DO [address] [place] [address] PCP - General Family Medicine 11/02/24 06/17/25 Inactive/Transferred PCP - General 06/18/25 06/18/25 Inactive/Transferred PCP - General 08/12/25 Lei Thacker Health Navigator 09/17/24 documented as of this encounter
--- OUTSIDE RECORDS SUMMARY | 2025-10-22 11:23 | XMS_ITS | Encounter Summary ---
Author Organization [employer] Address 75 [facility] 7t [place] [address] Care Team Providers Care Bilingual Student Tutor Name Role Phone Francheska Tucker NP Primary Care Provider UnavailLei Paulson Unavailable Unavailable Sharmila Azar DO Primary Care Provider [phone] Inactive/Transferred Primary Care Provider Unava ilable Inactive/Transferred Primary Care Provider Unava ilable Reason for Visit * Reason Comments Med Change Request Encounter Details Date Type Department Care Team (Late st Contact Info) Description 2024 Refill Pat [facility] MEDICAL [address] [place] [address] Francheska Tucker NP Type 2 diabetes mellitus with diabetic polyneuropathy, with long-term current use of insulin ([facility]) Social History Tobacco Use Types Packs/Day Years [...] the past 12 months, has t he [employer], gas, oil or water [employer] threatened to shut off services in your [...] documented as of this encounter Care Teams Bilingual Student Tutor Relationship Specialty Start Date End Date Francheska Tucker NP PCP - General Family Medicine 10/25/23 11/01/24 Sharmila Azar DO [address] [place] [address] PCP - General Family Medicine 11/02/24 06/17/25 Inactive/Transferred PCP - General 06/18/25 06/18/25 Inactive/Transferred PCP - General 08/12/25 Lei Thacker Health Navigator 09/17/24 documented as of this encounter
--- OUTSIDE RECORDS SUMMARY | 2025-10-22 11:23 | XMS_ITS | Encounter Summary ---
Author Organization [employer] Address 75 [facility] 7 [place] [address] Care Team Providers Care Front Line Leader Name Role Phone Lei Thacker Unavailable Unavailable Sharmila Azar DO Primary Care Provider [phone] Inactive/Transferred Primary Care Provider Unava ilable Inactive/Transferred Primary Care Provider Unava ilable Reason for Visit * Reason Comments Med Refill Encounter Details Date Type Department Care Team (Late st Contact Info) Description 03/02/2025 Refill [place] [facility] MEDICAL [address] [place] [address] Sharmila Azar DO [address] [place] [address] Anxiety; PTSD (post-traumatic stress disorder) Social History [...] documented as of this encounter Care Teams Front Line Leader Relationship Specialty Start Date End Date Sharmila Azar DO [address] [place] [address] PCP - General Family Medicine 11/02/24 06/17/25 Inactive/Transferred PCP - General 06/18/25 06/18/25 Inactive/Transferred PCP - General 08/12/25 Lei Thacker Health Navigator 09/17/24 documented as of this encounter
--- OUTSIDE RECORDS SUMMARY | 2025-10-22 11:24 | XMS_ITS | Patient Health Record ---
Author Organization [employer] [facility] Address [address] [facility] [address] [place] [address] Care Team Providers Care Plant Machinist Name Role Phone Laisha Castañeda Unavailable [phone] Reason For Referral No Information Medications Medication SIG (Take, Route, Frequency, Duration) Notes Start Date End Date Status Viibryd 40MG ORAL; Duration: -3 [facility] 04/28/2014 Active Vitamin D3 1000 IU ORAL daily; Duration: - [facility] 2013 Active Aspirin EC 81MG 1 ORAL daily; Durati on: - [facility] 04/28/2014 Active Nebulizer ORAL; Duration: - [facility] 04/28/2014 Active oxyCODONE HCl 5MG ORAL; Duration: - [facility] 04/28/2014 Active Pravastatin Sodium 20MG 1 ORAL daily; Du ration: - [facility] 04/28/2014 Active Singulair 10MG ORAL; Duration: - [facility] 04/28/2014 Active Combivent 103-18 2 INHALE four times daily; Duration: - [facility] 04/28/2014 Active KlonoPIN 0.5MG ORAL four times shannon y; Duration: [facility] 04/28/2014 Active Levothyroxine Sodium 125MCG 1 ORAL daily ; Duration: - [facility] 04/28/2014 Active metFORMIN HCl ER 500MG ORAL; Duration: - [facility] 04/28/20 14 Active Problems Problem Type SNOMED Code ICD Code Onset Dates Problem Status W/U Status Risk Notes Problem Hypothyroidism (94368314) Unspecified hypothyroidism (244.9) Active confirmed Problem Type II diabetes mellitus without complication (731148160) Diabetes mellitus without mention of complication, type II or unspecified type, not stated as uncontrolled (250.00) Active confirmed Problem Pure hypercholesterolemia (569319014) Pure hypercholesterolemia (272.0) Active confirmed Problem Morbid obesity (878960460) Morbid obesity (278.01) Active confirmed Problem Schizoaffective disorder (20381941) Schizoaffective disorder, unspecified (295.70) Active confirmed Problem Panic disorder with agoraphobia (77709561) Agoraphobia with panic disorder (300.21) Active confirmed Problem Obsessive-compulsive disorder (882034703) Obsessive-compulsive disorders (300.3) Active confirmed Problem Posttraumatic stress disorder (45570917) Posttraumatic stress disorder (309.81) Active confirmed Problem Attention deficit hyperactivity disorder (432249532) 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) Active confirmed Problem Migraine (disorder) (95836313) Migraine, unspecified without mention of intractable migraine without mention of status migrainosus (346.90) Active confirmed Problem Asthma (disorder) (775540595) Asthma, unspecified, unspecified status (493.90) Active confirmed Problem Sleep apnea (98174588) Unspecified sleep apnea (780.57) Active confirmed Problem Hypertension (71400885) Hypertension (401.9) Active confirmed Plan Of Treatment No Information Insurance Providers Payer Name Payer Address Payer Phone Subscriber Number Group Number Insured Name Patient Relationship to Insured Coverage Start Date Coverage End Date MEDICARE [address] [place] [id number] SEBASTIÁN GARCIA Self - patient is the [...]
--- OUTSIDE RECORDS SUMMARY | 2025-10-22 11:24 | XMS_ITS | Encounter Summary ---
Author Organization [employer] Address [address] [place] [address] 7 [place] [address] Care Team Providers Care Assessor Name Role Phone Francheska Tucker NP Primary Care Provider UnavailLei Paulson Unavailable Sharmila Collins DO Primary Care Provider [phone] Inactive/Transferred Primary Care Provider Unava ilable Inactive/Transferred Primary Care Provider Unava ilable Reason for Visit * Reason Comments Med Change Request Encounter Details Date Type Department Care Team (Late st Contact Info) Description 05/12/2024 Oneyda Stewart [facility] MEDICAL [address] [place] [address] Shilpa Miller, MARIA C [address] [place] [address] Psychophysiological insomnia Social History Tobacco Use Types [...] documented as of this encounter Care Teams Assessor Relationship Specialty Start Date End Date Francheska Tucker NP PCP - General Family Medicine 10/25/23 11/01/24 Sharmila Azar DO [address] [place] [address] PCP - General Family Medicine 11/02/24 06/17/25 Inactive/Transferred PCP - General 06/18/25 06/18/25 Inactive/Transferred PCP - General 08/12/25 Lei Thacker Health Navigator 09/17/24 documented as of this encounter
--- OUTSIDE RECORDS SUMMARY | 2025-10-22 11:24 | XMS_ITS | Encounter Summary ---
Author Organization [employer] Address [address] [facility] 7t [place] [address] Care Team Providers Care Site Specialist Name Role Phone Francheska Tucker NP Primary Care Provider UnavailLei Paulson Unavailable Sharmila Collins DO Primary Care Provider [phone] Inactive/Transferred Primary Care Provider Unava ilable Inactive/Transferred Primary Care Provider Unava ilable Reason for Visit * Reason Comments Med Change Request Encounter Details Date Type Department Care Team (Late st Contact Info) Description 01/14/2024 Oneyda Stewart [facility] MEDICAL [address] [place] [address] Shilpa Mliler, KNUCKLE STRAP SEWER [address] [place] [address] Type 2 diabetes mellitus with diabetic polyneuropathy, with long-term current use of insulin ([facility]) Social History Tobacco Use [...] the past 12 months, has t he [employer], gas, oil or water [employer] threatened to shut off services in your [...] was filled out yesterday and faxed to [employer] there was another TE on this. documented in this encounter Plan of Treatment Not on file documented as of this encounter Visit Diagnoses Diagnosis Type 2 diabetes mellitus with diabetic polyneuropathy, with long-term current use of insulin (HCC) documented in this encounter Care Teams Site Specialist Relationship Specialty Start Date End Date Francheska Tucker NP PCP - General Family Medicine 10/25/23 11/01/24 Sharmila Azar DO [address] [place] [address] PCP - General Family Medicine 11/02/24 06/17/25 Inactive/Transferred PCP - General 06/18/25 06/18/25 Inactive/Transferred PCP - General 08/12/25 Lei Thacker Health Navigator 09/17/24 documented as of this encounter
--- OUTSIDE RECORDS SUMMARY | 2025-10-22 11:24 | XMS_ITS | Encounter Summary ---
Author Organization [employer] Address [address] [place] [address] 7 [place] [address] Care Team Providers Care Resident Manager Name Role Phone Shilpa Miller CNP Primary Care Provider [phone] Francheska Tucker NP Primary Care Provider UnavailLei Paulson Unavailable Unavailable Sharmila Azar DO Primary Care Provider [phone] Inactive/Transferred Primary Care Provider Unava ilable Inactive/Transferred Primary Care Provider Unava ilable Reason for Visit * Reason Comments Med Refill Encounter Details Date Type Department Care Team (Late st Contact Info) Description 07/25/2023 Refill Pat [facility] MEDICAL [address] [place] [address] Shilpa Miller CNP [address] [place] [address] Hypothyroidism, unspecified Social History Tobacco Use Types [...] unspecified documented in this encounter Care Teams Resident Manager Relationship Specialty Start Date End Date Shilpa Miller CNP [address] [place] [address] PCP - General Family Medicine 10/16/22 10/24/23 Francheska Tucker NP [address] [place] [address] PCP - General Family Medicine 10/25/23 11/01/24 Sharmila Azar DO [address] [place] [address] PCP - General Family Medicine 11/02/24 06/17/25 Inactive/Transferred PCP - General 06/18/25 06/18/25 Inactive/Transferred PCP - General 08/12/25 Lei Thacker Health Navigator 09/17/24 documented as of this encounter
--- OUTSIDE RECORDS SUMMARY | 2025-10-22 11:24 | XMS_ITS | Encounter Summary ---
Author Organization [employer] Address [address] [place] [address] 7t [place] [address] Care Team Providers Care Sock Mender Name Role Phone Francheska Tucker NP Primary Care Provider UnavailLei Paulson Unavailable Unavailable Sharmila Azar DO Primary Care Provider [phone] Inactive/Transferred Primary Care Provider Unava ilable Inactive/Transferred Primary Care Provider Unava ilable Encounter Details Date Type Department Care Team (Late st Contact Info) Description 07/04/2024 Orders Only [facility] MEDICAL [address] [place] [address] Francheska Tucker NP Social History Tobacco Use [...] documented as of this encounter Care Teams Sock Mender Relationship Specialty Start Date End Date Francheska Tucker NP PCP - General Family Medicine 10/25/23 11/01/24 Sharmila Azar DO [address] [place] [address] PCP - General Family Medicine 11/02/24 06/17/25 Inactive/Transferred PCP - General 06/18/25 06/18/25 Inactive/Transferred PCP - General 08/12/25 Lei Thacker Health Navigator 09/17/24 documented as of this encounter
--- OUTSIDE RECORDS SUMMARY | 2025-10-22 11:24 | XMS_ITS | Encounter Summary ---
Author Organization [employer] Address [address] [place] [address] 7 [place] [address] Care Team Providers Care Professor Of Communication Name Role Phone Shilpa Miller CNP Primary Care Provider [phone] Francheska Tucker NP Primary Care Provider UnavailLei Paulson Unavailable Unavailable Sharmila Azar DO Primary Care Provider [phone] Inactive/Transferred Primary Care Provider Unava ilable Inactive/Transferred Primary Care Provider Unava ilable Encounter Details Date Type Department Care Team (Late st Contact Info) Description 01/31/2023 Abstract Pat [facility] [address] [place] [address] Shilpa Miller CNP [address] [place] [address] Social History Tobacco Use Types Packs/Day Years [...] on filedocumented in this encounter Care Teams Professor Of Communication Relationship Specialty Start Date End Date Shilpa Miller CNP [address] [place] [address] PCP - General Family Medicine 10/16/22 10/24/23 Francheska Tucker NP [address] [place] [address] PCP - General Family Medicine 10/25/23 11/01/24 Sharmila Azra DO [address] [place] [address] PCP - General Family Medicine 11/02/24 06/17/25 Inactive/Transferred PCP - General 06/18/25 06/18/25 Inactive/Transferred PCP - General 08/12/25 Lei Thacker Health Navigator 09/17/24 documented as of this encounter
--- OUTSIDE RECORDS SUMMARY | 2025-10-22 11:24 | XMS_ITS | Encounter Summary ---
Author Organization [employer] Address 75 [facility] 7t [place] [address] Care Team Providers Care Golf Superintendent Name Role Phone Lei Thacker Unavailable Unavailable Inactive/Transferred Primary Care Provider Unava ilable Encounter Details Date Type Department Care Team (Late st Contact Info) Description 07/17/2025 Orders Only Pat [facility] MED[facility] [address] [place] [address] Sharmila Azar DO [address] [place] [address] Arthralgia of both knees (Primary Dx); Lymphedema; [...] Expected: 07/23/2025 (Approximate), Expires: 07/23/2026 Blood culture [id number] Microbiology Routine Abnormal CBC ESR raised Expected: 07/23/2025, Expires: 07/23/2026 documented as of this encounter Procedures Procedure Name Priority Date/Time Associated Diagnosis Comments CBC WITH AUTO DIFFERENTIAL Routine 07/20/2025 9:20 AM EDT Arthralgia of both knees Lymphedema COMPREHENSIVE METABOLIC PANEL Routine 07/20/2025 9:20 AM EDT Arthralgia of both knees Lymphedema documented in this encounter Results * (ABNORMAL) Comprehensive Metabolic Panel [[id number]] (07/20/2025 9:20 AM EDT) Glucose 143(H) 70 [...] Resulting Agency Comment Performed at: 01 - [address] [id number] Helicopter Mechanic: Megan Curry MD, Phone: [phone] us Sharmila Azar DO LAB BLOOD ORDERABLES [...] Resulting Agency Comment Performed at: 01 - [address] [id number] Helicopter Mechanic: Megan Curry MD, Phone: [phone] us Sharmila Azar DO LAB BLOOD ORDERABLES [...] documented as of this encounter Care Teams Golf Superintendent Relationship Specialty Start Date End Date Inactive/Transferred PCP - General 08/12/25 Lei Thacker Health Navigator 09/17/24 documented as of this encounter
--- OUTSIDE RECORDS SUMMARY | 2025-10-22 11:24 | XMS_ITS | Encounter Summary ---
Author Organization [employer] Address 75 [facility] 7 [place] [address] Care Team Providers Care Manager Labor Delivery Name Role Phone Lei Thacker Unavailable Unavailable Sharmila Azar DO Primary Care Provider [phone] Inactive/Transferred Primary Care Provider Unava ilable Inactive/Transferred Primary Care Provider Unava ilable Reason for Visit * Reason Comments Med Change Request Encounter Details Date Type Department Care Team (Late st Contact Info) Description 12/25/2024 Refill Pat [facility] MED[facility] [address] [place] [address] Sharmila Azar DO [address] [place] [address] Mild intermittent asthma without complication Social History [...] t he electric, gas, oil or water [employer] threatened to shut off services in your [...] as of this encounter Care Teams Manager Labor Delivery Relationship Specialty Start Date End Date Sharmila Azar DO [address] [place] [address] PCP - General Family Medicine 11/02/24 06/17/25 Inactive/Transferred PCP - General 06/18/25 06/18/25 Inactive/Transferred PCP - General 08/12/25 Lei Thacker Health Navigator 09/17/24 documented as of this encounter
--- OUTSIDE RECORDS SUMMARY | 2025-10-22 11:24 | XMS_ITS | Encounter Summary ---
Author Organization [employer] Address [address] [facility] [address] 7t [place] [address] Care Team Providers Care High School French Teacher Name Role Phone Francheska Tucker NP Primary Care Provider UnavailLei Paulson Unavailable Unavailable Sharmila Azar DO Primary Care Provider [phone] Inactive/Transferred Primary Care Provider Unava ilable Inactive/Transferred Primary Care Provider Unava ilable Encounter Details Date Type Department Care Team (Late st Contact Info) Description 12/19/2023 Orders Only [facility] MED[facility] [address] [place] [address] Provider, MD Sharad Social History Tobacco Use [...] on filedocumented in this encounter Care Teams High School French Teacher Relationship Specialty Start Date End Date Francheska Tucker NP PCP - General Family Medicine 10/25/23 11/01/24 Sharmila Azar DO [address] [place] [address] PCP - General Family Medicine 11/02/24 06/17/25 Inactive/Transferred PCP - General 06/18/25 06/18/25 Inactive/Transferred PCP - General 08/12/25 Lei Thacker Health Navigator 09/17/24 documented as of this encounter
--- OUTSIDE RECORDS SUMMARY | 2025-10-22 11:24 | XMS_ITS | Encounter Summary ---
Author Organization [employer] Address 75 [facility] 7t [place] [address] Care Team Providers Care Business Development Manager Name Role Phone Francheska Tucker NP Primary Care Provider UnavailLei Paulson Unavailable Unavailable Sharmila Azar DO Primary Care Provider [phone] Inactive/Transferred Primary Care Provider Unava ilable Inactive/Transferred Primary Care Provider Unava ilable Encounter Details Date Type Department Care Team (Late st Contact Info) Description 07/25/2024 Orders Only [facility] [address] [place] [address] Francheska Tucker NP Social History Tobacco Use [...] the past 12 months, has t he [email or web address], gas, oil or water company threatened to [...] Right Rad iographic Imaging us Francheska Tucker WARP SCOURING VAT TENDER IMG XR PROCEDURES Final Result documented in this encounter Visit Diagnoses Not on filedocumented in this encounter Additional Health Concerns Assessment Noted Time PHQ-9 Depression Total Score: 20 024 7:38 AM EDT documented as of this encounter Care Teams Business Development Manager Relationship Specialty Start Date End Date Francheska Tucker NP PCP - General Family Medicine 10/25/23 11/01/24 Sharmila Azar DO [address] [place] [address] PCP - General Family Medicine 11/02/24 06/17/25 Inactive/Transferred PCP - General 06/18/25 06/18/25 Inactive/Transferred PCP - General 08/12/25 Lei Thacker Health Navigator 09/17/24 documented as of this encounter
--- OUTSIDE RECORDS SUMMARY | 2025-10-22 11:24 | XMS_ITS | Encounter Summary ---
Author Organization [employer] Address 75 [facility] 7 [place] [address] Care Team Providers Care Manager International Name Role Phone Lei Thacker Unavailable Unavailable Sharmila Azar DO Primary Care Provider [phone] Inactive/Transferred Primary Care Provider Unava ilable Inactive/Transferred Primary Care Provider Unava ilable Reason for Visit * Reason Comments Med Change Request Encounter Details Date Type Department Care Team (Late st Contact Info) Description 01/26/2025 Oneyda Stewart [facility] [address] [place] [address] Sharmila Azar DO [address] [place] [address] Type 2 diabetes mellitus with diabetic polyneuropathy, with long-term current use of insulin ([facility]) Social History Tobacco [...] as of this encounter Care Teams Manager International Relationship Specialty Start Date End Date Sharmila Azar DO [address] [place] [address] PCP - General Family Medicine 11/02/24 06/17/25 Inactive/Transferred PCP - General 06/18/25 06/18/25 Inactive/Transferred PCP - General 08/12/25 Lei Thacker Health Navigator 09/17/24 documented as of this encounter
--- OUTSIDE RECORDS SUMMARY | 2025-10-22 11:24 | XMS_ITS | Clinical Summary ---
Author Organization [employer] Address 75 [facility] 7t [place] [address] Care Team Providers Care Property Man Name Role Phone Lei Thacker Unavailable Unavailable Inactive/Transferred Primary Care Provider Unava ilable Allergies Active Allergy Reactions Criticality Noted Date Comments Beaver Oil Hives,Itching,Rash,S hortness of breath,Swelling,Whee zing High 11/05/1980 Other Reaction(s): Anaphylaxis Amoxicillin 10/11/2022 Other reaction(s): Unknown Aspirin 10/11/2022 Other reaction(s): sensitivity Azithromycin Rash Low 10/11/2022 [employer] Flavoring Agent (Non-Screening) Hives,Itching,Shortn ess of breath,Swelling,Whee [...] with long-term current use of insulin ([facility]) Use as directed to test blood sugars 3 times a day 100 strip 12 12/09/19 25 Active levalbuterol (Xopenex) 45 MCG/ACT inhalerIndications :Mild intermittent asthma without complication INHALE 2 PUFFS EVERY 4 HOURS IF NEEDED FOR WHEEZING. 15 g 12/25/19 25 Active nystatin (Mycostatin) 350804 UNIT/GM powderIndications: Soo infection of flexural skin Apply topically 2 times daily. 60 g 1 01/01/20 25 026 Active losartan (Cozaar) 100 MG tabletIndications: Essential (primary) hypertension TAKE 1 TABLET (100 MG) BY MOUTH ONCE PER DAY. 90 tablet 3 02/03/20 25 Active Basaglar KwikPen 100 UNIT/ML penIndications:Typ e 2 diabetes mellitus with diabetic polyneuropathy, with long-term current use of insulin ([facility]) Inject 82 Units under the skin at [...] 03/09/20 25 Active Lancets (OneTouch Delica Plus Feciif11E) miscIndications:Ty pe 2 diabetes mellitus with diabetic polyneuropathy, with long-term current use of insulin ([facility]) CHECK GLUCOSE 3 TIMES A DAY 100 [...] pe 2 diabetes mellitus with diabetic polyneuropathy ([facility]) INJECT 1 EACH UNDER THE SKIN 4 TIMES DAILY. 100 each 3 05/18/20 25 Active insulin aspart FlexPen (NovoLOG) 100 UNIT/ML penIndications:Typ e 2 diabetes mellitus with diabetic polyneuropathy, with long-term current use of insulin ([facility]) Inject 8-10 Units under the skin before [...] depression, PTSD. Engaged with Dom Carter at [facility] in [place] for medication. Sees Forrest at [facility] for therapy weekly on phone. Feeling symptoms [...] ARB and STATIN. EYE: Dr. Segura in [place] DENTIST: Has false teeth. FBS 60-100. Will [...] pain. Will refer to weight management. Completed WILDLIFE MANAGEMENT PROFESSOR paperwork for Ismael. Assessment & Plan (05/25/2023 [...] seen today and discharged! Edema 11/24/2022 02/02/2023 Immunizations Immunization Administration Dates Next Due Hep [...] 12/11/2023, 08/0 12/2021, 06/06/2022, Additional history exists COVID-19 Vaccine [...] polyneuropathy, with long-term current use of insulin ([facility]) BI MAMMOGRAM SCREENING TOMOSYNTHESIS BILATERAL Routine 04/25/2025 1:53 PM EDT ALBUMIN/CREATININE RATIO, RANDOM URINE Routine 01/01/2025 12:00 AM EST Type 2 diabetes mellitus with diabetic polyneuropathy, with long-term current use of insulin ([facility]) DIABETES EYE EXAM Routine 05/28/2024 5:27 PM [...] specimen / Unknown 06/22/2025 2:22 PM EDT [facility] POINT OF CARE TEST ENTER/EDIT ORDERABLES Final Result * BI Mammogram Screening Tomosynthesis Bilateral (04/25/2025 1:53 PM EDT) Anatomical Region Laterality Modality Breast Bilateral Mammography 04/25/2025 1:53 PM EDT Narrative 04/27/2025 4:28 PM EDT PROCEDURE: MM Digital Mammo Screening INDICATION: Screening for breast cancer. No known palpable abnormalities. COMPARISON: [facility] dating back to 01/14/2013. TECHNIQUE: Full-field digital [...] (Negative) Lay letter mailed to patient WSN: [id number] Ordering Physician: Sharmila Azar Dictated By: Kayleigh Hall MD, I Dictated Date/Time: 04/27/25 4:25 pm Reviewed By: Kayleigh Hall MD, I Signed By: Kayleigh Hall MD, I Signed Date/Time: 04/27/25 4:25 pm Transcribed By: CSB Citrix Engineer Date/Time: 04/27/25 4:22 pm Birads: Procedure Note Donotuseinterpreter, Image - 04/27/2025 PROCEDURE: MM Digital Mammo Screening INDICATION: Screening for breast cancer. No known palpableabnormalities. COMPARISON: [facility] dating back to 01/14/2013. TECHNIQUE: Full-field digital [...] (Negative) Lay letter mailed to patient WSN: [id number] Ordering Physician: Sharmila Azar Dictated By: Kayleigh Hall MD, I Dictated Date/Time: 04/27/25 4:25 pm Reviewed By: Kayleigh Hall MD, I Signed By: Kayleigh Hall MD, I Signed Date/Time: 04/27/25 4:25 pm Transcribed By: CSB [employer]rix Engineer Date/Time: 04/27/25 4:22 pm Birads: [facility] IMG BI PROCEDURES Final Result * Albumin/Creatinine [...] AM EST Performed at: 01 - [facility] [address] [id number] School Health Aide: Megan Curry MD, Phone: [phone] [facility] LAB URINE ORDERABLES Final Res ult [facility] 1 * Diabetes Eye Exam (05/28/2024 5:27 PM EDT) Historical Provider HEALTH MAINTENANCE Final Result * Lipid panel (12/11/2023 12:51 PM EST) Cholesterol, Total 142 (<200) MG/DL [facility] Triglyceride (mg/dL) in Serum/Plasma 89 (<150) MG/DL [facility] HDL Cholesterol 67 (>39) MG/DL [facility] LDL Cholesterol, Calculated 57 (0-130) MG/DL [facility] Non HDL Chol. (LDL+VLDL) 75 (<160) MG/DL [facility] Comment: Testing performed or reported by [facility], a Service of [facility], [address] [place] [address] Rojas Garza MD, Class A Regional Truck Driver [facility]# [id number] Blood Venous blood specimen / Unknown 12/11/2023 12:51 PM EST 12/11/2023 12:52 PM EST Francheska Tucker SUPPLY CHAIN PLANNER LAB BLOOD ORDERABLES Final Resul t Performing Organization Address [facility] de Phone Number [facility] [address] [place] [address] * Pap Smear (07/17/2023 12:00 AM EDT) Swab Historical Provider LAB CYTOLOGY ORDERABLES F inal Result Performing Organization Address [facility] de Phone Number [facility] [address] [place] [address] * Hm Colonoscopy (12/30/2020) Colonoscopy repeat in 10 yeasr Historical Provider HEALTH MAINTENANCE Final Result * -Hepatitis C Antibody Test (12/14/2020 7:58 AM EST) ANTI-HEPATITIS C NEGATIVE (NEG) [facility] Comment: Reference range: Negative This test was performed on the [employer] Edge Finisher immunoassay system. 12/14/2020 7:58 AM EST Shilpa Miller DISPLAY CARD WRITER HISTORICAL/NON ORDERABLE LABS Final Result Performing Organization Address [facility] [address] * -HIV AB-AG 4TH GENERATION (12/14/2020 7:58 AM EST) RESULT 4TH GEN HIV AB-AG NEGATIVE (NEG) [facility] Comment: Negative for antibodies to HIV 1 and HIV 2 and P24 antigen. Reference range: Negative Additional note: Written patient authorization is required for each separate release of this test result. This test was performed on the [employer] Edge Finisher immunoassay system. 12/14/2020 7:58 AM EST Shilpa Miller DISPLAY CARD WRITER LAB BLOOD ORDERABLES Final Re sult Performing Organization Address [facility] Co de Phone Number [facility] [address] from Last 3 Months or Most Recently Relevant to Health Maintenance Insurance MEDICARE Member Subscriber Plan / Payer (Ef fective 2022-Present) Name:Qiana Doughertyberly Ricardo Member ID:[id number] Relation to Subscriber:Self Name:Elyssa Dougherty Subscriber ID:[id number] Payer ID:STATE Group ID:Not on file Type:Medicare Address: [place] [facility] [address] [address] [facility] Advance Directives Documents on File Type Date Recorded Patient Crane Rigger Expl anation HealthCare Proxy 10/24/2023 12:48 PM HCP Care Teams Property Man Relationship Specialty Start Date End Date Inactive/Transferred PCP - General 08/12/25 Lei Thacker Health Navigator 09/17/24
--- OUTSIDE RECORDS SUMMARY | 2025-10-22 11:25 | XMS_ITS | Encounter Summary ---
Author Organization [employer] Address 75 [facility] 7 [place] [address] Care Team Providers Care Linoleum Layer Helper Name Role Phone Francheska Tucker NP Primary Care Provider UnavailLei Paulson Unavailable Sharmila Collins DO Primary Care Provider [phone] Inactive/Transferred Primary Care Provider Unava ilable Inactive/Transferred Primary Care Provider Unava ilable Reason for Visit * Reason Comments Med Refill Encounter Details Date Type Department Care Team (Late st Contact Info) Description 03/21/2024 Refill Pat [facility] [address] [place] [address] Shilpa Miller, HEALTH PROFESSIONAL [address] [place] [address] Type 2 diabetes mellitus with diabetic polyneuropathy, with long-term current use of insulin ([facility]) Social History Tobacco Use [...] documented as of this encounter Care Teams Linoleum Layer Helper Relationship Specialty Start Date End Date Francheska Tucker NP PCP - General Family Medicine 10/25/23 11/01/24 Sharmila Azar DO [address] [place] [address] PCP - General Family Medicine 11/02/24 06/17/25 Inactive/Transferred PCP - General 06/18/25 06/18/25 Inactive/Transferred PCP - General 08/12/25 Lei Thacker Health Navigator 09/17/24 documented as of this encounter
--- OUTSIDE RECORDS SUMMARY | 2025-10-22 11:25 | XMS_ITS | Encounter Summary ---
Author Organization [employer] Address [address] [place] [address] 7 [place] [address] Care Team Providers Care Weatherstrip Machine Operator Name Role Phone Shilpa Miller CNP Primary Care Provider [phone] Francheska Tucker NP Primary Care Provider UnavailLei Paulson Unavailable Unavailable Sharmila Azar DO Primary Care Provider [phone] Inactive/Transferred Primary Care Provider Unava ilable Inactive/Transferred Primary Care Provider Unava ilable Encounter Details Date Type Department Care Team (Late st Contact Info) Description 10/26/2022 Abstract Pat [facility] [address] [place] [address] Shilpa Miller CNP [address] [place] [address] Social History Tobacco Use Types Packs/Day Years [...] Benign Anatomical Region Laterality Modality Other Result [facility] Historical Provider HEALTH MAINTENANCE Final Result documented in this encounter Visit Diagnoses Not on filedocumented in this encounter Care Teams Weatherstrip Machine Operator Relationship Specialty Start Date End Date Shilpa Miller CNP [address] [place] [address] PCP - General Family Medicine 10/16/22 10/24/23 Francheska Tucker NP [address] [place] [address] PCP - General Family Medicine 10/25/23 11/01/24 Sharmila Azar DO [address] [place] [address] PCP - General Family Medicine 11/02/24 06/17/25 Inactive/Transferred PCP - General 06/18/25 06/18/25 Inactive/Transferred PCP - General 08/12/25 Lei Thacker Health Navigator 09/17/24 documented as of this encounter
--- OUTSIDE RECORDS SUMMARY | 2025-10-22 11:25 | XMS_ITS | Encounter Summary ---
Author Organization [employer] Address [address] [place] [address] 7 [place] [address] Care Team Providers Care Spreading Machine Operator Name Role Phone Shilpa Miller MARIA C Primary Care Provider [phone] Francheska Tucker NP Primary Care Provider UnavailLei Paulson Unavailable Unavailable Sharmila Azar DO Primary Care Provider [phone] Inactive/Transferred Primary Care Provider Unava ilable Inactive/Transferred Primary Care Provider Unava ilable Encounter Details Date Type Department Care Team (Late st Contact Info) Description 12/01/2022 Orders Only [facility] MEDICAL [address] [place] [address] Avelina Fulton FNP Type 2 diabetes mellitus with diabetic polyneuropathy, with long-term current use of insulin ([facility]) (Primary Dx) Social History Tobacco Use Types [...] Primary documented in this encounter Care Teams Spreading Machine Operator Relationship Specialty Start Date End Date Shilpa Miller CNP [address] [place] [address] PCP - General Family Medicine 10/16/22 10/24/23 Francheska Tucker NP [address] [place] [address] PCP - General Family Medicine 10/25/23 11/01/24 Sharmila Azar DO [address] [place] [address] PCP - General Family Medicine 11/02/24 06/17/25 Inactive/Transferred PCP - General 06/18/25 06/18/25 Inactive/Transferred PCP - General 08/12/25 Lei Thacker Health Navigator 09/17/24 documented as of this encounter
--- OUTSIDE RECORDS SUMMARY | 2025-10-22 11:25 | XMS_ITS | Encounter Summary ---
Author Organization [employer] Address 75 [facility] 7 [place] [address] Care Team Providers Care Textile Cutting Machine Operator Name Role Phone Lei Thacker Unavailable Unavailable Sharmila Azar DO Primary Care Provider [phone] Inactive/Transferred Primary Care Provider Unava ilable Inactive/Transferred Primary Care Provider Unava ilable Reason for Visit * Reason Onset Date Comments Med Refill 12/11/2024 Encounter Details Date Type Department Care Team (Late st Contact Info) Description 12/11/2024 Refill [place] [facility] [address] [place] [address] Sharmila Azar DO [address] [place] [address] Anxiety; PTSD (post-traumatic stress disorder) Social History [...] documented as of this encounter Care Teams Textile Cutting Machine Operator Relationship Specialty Start Date End Date Sharmila Azar DO [address] [place] [address] PCP - General Family Medicine 11/02/24 06/17/25 Inactive/Transferred PCP - General 06/18/25 06/18/25 Inactive/Transferred PCP - General 08/12/25 Lei Thacker Health Navigator 09/17/24 documented as of this encounter
--- OUTSIDE RECORDS SUMMARY | 2025-10-22 11:25 | XMS_ITS | Encounter Summary ---
Author Organization [employer] Address [address] [facility] 7 [place] [address] Care Team Providers Care Stage Rigger Name Role Phone Lei Thacker Unavailable Unavailable Sharmila Azar DO Primary Care Provider [phone] Inactive/Transferred Primary Care Provider Unava ilable Inactive/Transferred Primary Care Provider Unava ilable Reason for Visit * Reason Onset Date Comments Med Refill 12/24/2024 Encounter Details Date Type Department Care Team (Late st Contact Info) Description 12/24/2024 Refill [place] [facility] MEDICAL [address] [place] [address] Sharmila Azar DO [address] [place] [address] Anxiety; PTSD (post-traumatic stress disorder) Social History [...] documented as of this encounter Care Teams Stage Rigger Relationship Specialty Start Date End Date Sharmila Azar DO [address] [place] [address] PCP - General Family Medicine 11/02/24 06/17/25 Inactive/Transferred PCP - General 06/18/25 06/18/25 Inactive/Transferred PCP - General 08/12/25 Lei Thacker Health Navigator 09/17/24 documented as of this encounter
--- OUTSIDE RECORDS SUMMARY | 2025-10-22 11:25 | XMS_ITS | Encounter Summary ---
Author Organization [employer] Address 75 [facility] 7 [place] [address] Care Team Providers Care Vehicle And Equipment Cleaner Name Role Phone Lei Thacker Unavailable Unavailable DoeSharmila Primary Care Provider [phone] Inactive/Transferred Primary Care Provider Unava ilable Inactive/Transferred Primary Care Provider Unava ilable Reason for Visit * Reason Comments Med Refill Encounter Details Date Type Department Care Team (Late st Contact Info) Description 11/09/2024 Refill [place] [facility] MEDICAL [address] [place] [address] Francheska Tucker NP Acquired hypothyroidism Social History [...] documented as of this encounter Care Teams Vehicle And Equipment Cleaner Relationship Specialty Start Date End Date Sharmila Azar DO [address] [place] [address] PCP - General Family Medicine 11/02/24 06/17/25 Inactive/Transferred PCP - General 06/18/25 06/18/25 Inactive/Transferred PCP - General 08/12/25 Lei Thacker Health Navigator 09/17/24 documented as of this encounter
--- OUTSIDE RECORDS SUMMARY | 2025-10-22 11:25 | XMS_ITS | Encounter Summary ---
Author Organization [employer] Address [address] [place] [address] 7 [place] [address] Care Team Providers Care Director Of Employer Services Name Role Phone Shilpa Miller CNP Primary Care Provider [phone] Francheska Tucker NP Primary Care Provider UnavailLei Paulson Unavailable Unavailable Sharmila Azar DO Primary Care Provider [phone] Inactive/Transferred Primary Care Provider Unava ilable Inactive/Transferred Primary Care Provider Unava ilable Encounter Details Date Type Department Care Team (Late st Contact Info) Description 10/27/2022 Abstract Pat [facility] MEDICAL 73 [place] [address] Shilpa Miller CNP 73 [place] [address] Social History Tobacco Use Types Packs/Day Years [...] filedocumented in this encounter Care Teams Director Of Employer Services Relationship Specialty Start Date End Date Shilpa Miller CNP [address] [place] [address] PCP - General Family Medicine 10/16/22 10/24/23 Francheska Tucker NP [address] [place] [address] PCP - General Family Medicine 10/25/23 11/01/24 Sharmila Azar DO 73 [place] [address] PCP - General Family Medicine 11/02/24 06/17/25 Inactive/Transferred PCP - General 06/18/25 06/18/25 Inactive/Transferred PCP - General 08/12/25 Lei Thacker Health Navigator 09/17/24 documented as of this encounter
--- OUTSIDE RECORDS SUMMARY | 2025-10-22 11:25 | XMS_ITS | Encounter Summary ---
Author Organization [employer] Address [address] [place] [address] 7t [place] [address] Care Team Providers Care Cardiac Cath Technologist Name Role Phone Francheska Tucker NP Primary Care Provider UnavailLei Paulson Unavailable Unavailable Sharmila Azar DO Primary Care Provider [phone] Inactive/Transferred Primary Care Provider Unava ilable Inactive/Transferred Primary Care Provider Unava ilable Reason for Visit * Reason Comments Med Change Request Encounter Details Date Type Department Care Team (Late st Contact Info) Description 01/16/2024 Oneyda Stewart [facility] MEDICAL [address] [place] [address] Amira Singh FNP Social History Tobacco Use [...] RX filled out yesterday and faxed to [facility] [place] documented in this encounter Plan of Treatment Not on file documented as of this encounter Visit Diagnoses Not on filedocumented in this encounter Care Teams Cardiac Cath Technologist Relationship Specialty Start Date End Date Francheska Tucker NP PCP - General Family Medicine 10/25/23 11/01/24 Sharmila Azar DO [address] [place] [address] PCP - General Family Medicine 11/02/24 06/17/25 Inactive/Transferred PCP - General 06/18/25 06/18/25 Inactive/Transferred PCP - General 08/12/25 Lei Thacker Health Navigator 09/17/24 documented as of this encounter
--- OUTSIDE RECORDS SUMMARY | 2025-10-22 11:25 | XMS_ITS | Encounter Summary ---
Author Organization [employer] Address [address] [facility] [address] 7t [place] [address] Care Team Providers Care Cottrell Blower Name Role Phone Lei Thacker Unavailable Unavailable King Sharmila Primary Care Provider [phone] Inactive/Transferred Primary Care Provider Unava ilable Inactive/Transferred Primary Care Provider Unava ilable Encounter Details Date Type Department Care Team (Late st Contact Info) Description 11/21/[address] [facility] MEDICAL [address] [place] [address] Provider, MD Sharad Social History Tobacco Use [...] documented as of this encounter Care Teams Cottrell Blower Relationship Specialty Start Date End Date Sharmila Azar DO 73 [place] [address] PCP - General Family Medicine 11/02/24 06/17/25 Inactive/Transferred PCP - General 06/18/25 06/18/25 Inactive/Transferred PCP - General 08/12/25 Lei Thacker Health Navigator 09/17/24 documented as of this encounter
--- OUTSIDE RECORDS SUMMARY | 2025-10-22 11:25 | XMS_ITS | Encounter Summary ---
Author Organization [employer] Address [address] [place] [address] 7 [place] [address] Care Team Providers Care Slp Teacher Name Role Phone Shilpa Miller CNP Primary Care Provider [phone] Francheska Tucker NP Primary Care Provider UnavailLei Paulson Unavailable Unavailable Sharmila Azar DO Primary Care Provider [phone] Inactive/Transferred Primary Care Provider Unava ilable Inactive/Transferred Primary Care Provider Unava ilable Encounter Details Date Type Department Care Team (Late st Contact Info) Description 11/30/2022 Abstract Pat [facility] MEDICAL 73 [place] [address] Shilpa Miller CNP [address] [place] [address] Social History Tobacco Use Types Packs/Day Years [...] on filedocumented in this encounter Care Teams Slp Teacher Relationship Specialty Start Date End Date Shilpa Miller CNP [address] [place] [address] PCP - General Family Medicine 10/16/22 10/24/23 Francheska Tucker NP [address] [place] [address] PCP - General Family Medicine 10/25/23 11/01/24 Sharmila Azar DO [address] [place] [address] PCP - General Family Medicine 11/02/24 06/17/25 Inactive/Transferred PCP - General 06/18/25 06/18/25 Inactive/Transferred PCP - General 08/12/25 Lei Thacker Health Navigator 09/17/24 documented as of this encounter
--- OUTSIDE RECORDS SUMMARY | 2025-10-22 11:25 | XMS_ITS | Encounter Summary ---
Author Organization [employer] Address 75 [facility] 7 [place] [address] Care Team Providers Care Sheep And Wheat Farmer Name Role Phone Lei Thacker Unavailable Unavailable Sharmila Azar DO Primary Care Provider [phone] Inactive/Transferred Primary Care Provider Unava ilable Inactive/Transferred Primary Care Provider Unava ilable Reason for Visit * Reason Onset Date Comments Med Refill 11/27/2024 Encounter Details Date Type Department Care Team (Late st Contact Info) Description 11/27/2024 Refill Pat [facility] MEDICAL [address] [place] [address] Sharmila Azar DO [address] [place] [address] Anxiety; PTSD (post-traumatic stress disorder) Social History [...] documented as of this encounter Care Teams Sheep And Wheat Farmer Relationship Specialty Start Date End Date Sharmila Azar DO [address] [place] [address] PCP - General Family Medicine 11/02/24 06/17/25 Inactive/Transferred PCP - General 06/18/25 06/18/25 Inactive/Transferred PCP - General 08/12/25 Lei Thacker Health Navigator 09/17/24 documented as of this encounter
--- OUTSIDE RECORDS SUMMARY | 2025-10-22 11:25 | XMS_ITS | Encounter Summary ---
Author Organization [employer] Address [address] [place] [address] 7 [place] [address] Care Team Providers Care Shoe Worker Name Role Phone Shilpa Miller CNP Primary Care Provider [phone] Francheska Tucker NP Primary Care Provider UnavailLei Paulson Unavailable Unavailable Sharmila Azar DO Primary Care Provider [phone] Inactive/Transferred Primary Care Provider Unava ilable Inactive/Transferred Primary Care Provider Unava ilable Encounter Details Date Type Department Care Team (Late st Contact Info) Description 11/30/2022 Abstract Pat [facility] MEDICAL 73 [place] [address] Shilpa Miller CNP [address] [place] [address] Social History Tobacco Use Types Packs/Day Years [...] on filedocumented in this encounter Care Teams Shoe Worker Relationship Specialty Start Date End Date Shilpa Miller CNP [address] [place] [address] PCP - General Family Medicine 10/16/22 10/24/23 Francheska Tucker NP [address] [place] [address] PCP - General Family Medicine 10/25/23 11/01/24 Sharmila Azar DO [address] [place] [address] PCP - General Family Medicine 11/02/24 06/17/25 Inactive/Transferred PCP - General 06/18/25 06/18/25 Inactive/Transferred PCP - General 08/12/25 Lei Thacker Health Navigator 09/17/24 documented as of this encounter
--- OUTSIDE RECORDS SUMMARY | 2025-10-22 11:25 | XMS_ITS | Encounter Summary ---
Author Organization [employer] Address [address] [place] [address] 7 [place] [address] Care Team Providers Care Charge Authorizer Name Role Phone Lei Thacker Unavailable Unavailable DoeSharmila Primary Care Provider [phone] Inactive/Transferred Primary Care Provider Unava ilable Inactive/Transferred Primary Care Provider Unava ilable Reason for Visit * Reason Onset Date Comments Med Refill 11/05/2024 Encounter Details Date Type Department Care Team (Late st Contact Info) Description 11/05/2024 Refill [facility] MED[facility] [address] [place] [address] Shilpa Miller, MUSTANGER [address] [place] [address] Type 2 diabetes mellitus with diabetic polyneuropathy [...] documented as of this encounter Care Teams Charge Authorizer Relationship Specialty Start Date End Date Sharmila Azar DO 73 [place] [address] PCP - General Family Medicine 11/02/24 06/17/25 Inactive/Transferred PCP - General 06/18/25 06/18/25 Inactive/Transferred PCP - General 08/12/25 Lei Thacker Health Navigator 09/17/24 documented as of this encounter
--- OUTSIDE RECORDS SUMMARY | 2025-10-22 11:25 | XMS_ITS | Continuity of Care Document ---
Author Organization [facility], [facility] Address [address] [place] [address] Care Team Providers Care Credit Card Specialist Name Role Phone LIANNA PANCHAL Primary Care [...] Address Organization Details Recorded Time No complaints [id number] Active Status : 'I'; Not Available [facility] 4 09:19:03 Problem Notes None recorded. Procedures Surgical History Date Name Laterality Status Provider Name and Address Organization Details Recorded Time 5 Knee Kenalog 40 1cc Injection, Bilateral completed Robert Conde PA-C [address], [place], [address], [facility] 10/20/2025 12:06:29 5 Knee Kenalog 40 1cc Injection, Bilateral completed Robert Conde PA-C [address], [place], [address], [facility] 07/15/2025 16:42:15 5 Knee Kenalog 40 1cc Injection, Bilateral completed Robert Elton, PA-C [address], [place], [address], [facility] 04/01/2025 07:56:50 5 Knee Kenalog 40 1cc Injection, Bilateral completed Robert Vegaa, PA-C [address], [place], [address], [facility] 12/31/2024 15:24:25 4 Knee Kenalog 40 1cc Injection, Bilateral completed Robert Elton, PA-C [address], [place], [address], [facility] 10/08/2024 13:43:12 4 Knee Kenalog 40 1cc Injection, Bilateral completed Robert Elton, PA-C [address], [place], [address], [facility] 07/09/2024 12:37:00 4 Knee Kenalog 40 1cc Injection, Bilateral completed Robert Elton, PA-C [address], [place], [address], [facility] 03/28/2024 08:24:20 Imaging Results None recorded. Procedure Notes None recorded. Medical Equipment None Reported. Allergies Allergen ID Allergen Name Allergen Category Reaction Reaction Severity Criticality Documentation Date Start Date Code Code System Note Provider Name and Address Organization Details Recorded Time 766473 Product containin g angiotens in-conver ting enzyme inhibitor (product) medicatio n Not available Not available Not available 03/27/2024 89555 009 SNOMED RODOLFO ERIKA [facility], [facility] 4 14:45:09 396402 Bactrim medicatio n Not available Not available Not available 03/27/2024 81001 9 RxNorm RODOLFO JAMES [facility], [facility] 14:45:49 215696 metformin medicatio n Not available Not available Not available 03/27/2024 6809 RxNorm RODOLFO JAMES [facility] 14:46:00 695021 Substance with sulfonami de structure and antibacte rial mechanism of action (substanc e) medicatio n Not available Not available Not available 03/27/2024 67272 8003 SNOMED RODOLFO fernandes [facility] 4 14:46:16 624502 latex environme nt,medica tion Not available Not available Not available 03/27/2024 70264 91 RxNorm RODOLFO fernandes [facility] 4 14:46:24 081388 Lyrica medicatio n Not available Not available Not available 10/08/2024 58408 1 RxNorm DOMENIC ORANTESBEVERLY dena [facility] 4 14:50:46 046549 almond allergeni c extract food dyspnea hives itching rash swelling wheezing Not available Not available Not available Not available Not available Not available high 10/16/20251980 47035 7 RxNorm Other React ion(s ): Anaph ylaxi s Not Available [employer] - prod 5 09:56:51 978143 amoxicill in medicatio n Not available Not available Not available 10/16/20252021 723 RxNorm Other react ion(s ): Unkno wn Not Available [employer] - prod 5 09:56:51 827807 aluminum aspirin Not available Not available Not available Not available 10/16/20252021 611 RxNorm Other react ion(s ): sensi tivit y Not Available [employer] - prod 5 09:56:51 998466 azithromy gagandeep medicatio n rash Not available low 10/16/20252021 21145 RxNorm Not Available [employer] - prod 5 09:56:51 807086 buspirone medicatio n anxiety dyspnea rash swelling wheezing Not available Not available Not available Not available Not available high 10/16/20252024 1827 RxNorm Not Available [employer] - prod 5 09:56:51 496059 clonidine medicatio n Not available Not available low 10/16/20252022 2599 RxNorm Low blood press ure, nause a, vomit ing Not Available [employer] - prod 5 09:56:51 225922 desvenlaf axine succinate medicatio n swelling Not available Not available 10/16/20252021 57598 3 RxNorm Whole body swell ing Not Available [employer] - prod 5 09:56:51 232035 furosemid e medicatio n rash wheezing Not available Not available low 10/16/20252021 4603 RxNorm Not Available [employer] - prod 5 09:56:51 267377 iodine medicatio n rash Not available low 10/16/20252021 5933 RxNorm Not Available [employer] - prod 5 09:56:51 434887 liragluti de medicatio n diarrhea hives nausea rash Not available Not available Not available Not available low 10/16/20252021 54893 8 RxNorm Other react ion(s ): Unkno wn Not Available [employer] - prod 5 09:56:51 475356 lisinopri l medicatio n Not available Not available Not available 10/16/20252021 20455 RxNorm Other react ion(s ): edema Not Available [employer] - prod 5 09:56:51 415493 pregabali n medicatio n itching swelling Not available Not available high 10/16/20252023 91085 2 RxNorm Not Available [employer] - prod 5 09:56:[address] medicatio n rash Not available low 10/16/20252021 92495 RxNorm Not Available [employer] - prod 5 09:56:51 391497 omalizuma b medicatio n anaphylax is Not available high 10/16/20252021 31877 9 RxNorm Not Available [employer] - [employer] - prod 5 09:56:51 353162 penicilli n G Not available Not available Not available Not available 10/16/20252021 7980 RxNorm Other react ion(s ): Unkno wn Not Available dain - [employer] - prod 5 09:56:51 407792 pravastat in medicatio n rash Not available low 10/16/20252021 06224 RxNorm Not Available [employer] - [employer] - prod 5 09:56:51 019938 semagluti de medicatio n Not available Not available Not available 10/16/20252021 29908 02 RxNorm Other react ion(s ): N and V Not Available [employer] - prod 5 09:56:51 033252 spironola ctone medicatio n rash Not available low 10/16/20252021 9997 RxNorm Not Available [employer] - prod 5 09:56:51 404056 sulfameth oxazole / trimethop rim medicatio n anaphylax is Not available high 10/16/20252021 18832 RxNorm Not Available [employer] - prod 5 09:56:51 787037 sumatript an medicatio n Not available Not available Not available 10/16/20252021 50149 RxNorm Other react ion(s ): eleva hanny blood press ure Not Available [employer] - prod 5 09:56:51 265489 acetamino phen medicatio n hives Not available Not available 10/16/20252021 161 RxNorm Other react ion(s ): facia l swell ing Not Available [employer] - prod 5 09:56:51 079093 vortioxet ine hydrobrom bora medicatio n anxiety swelling Not available Not available low 10/16/20252024 85778 34 RxNorm Not Available [employer]ain - [employer] - prod 5 09:56:51 153464 ascorbic acid / cholecalc iferol / folic acid / niacin / riboflavi n / sodium fluoride / thiamine / vitamin A / vitamin B12 / vitamin B6 / vitamin E medicatio n Not available Not available Not available 10/16/2025 12363 81 RxNorm Not Available [employer]ain - [employer] - prod 5 09:56:52 463504 sulfadiaz ine medicatio n Not available Not available Not available 10/16/2025 98365 RxNorm Not Available [employer] - [employer] - prod 5 09:56:52 539946 aspirin medicatio n Not available Not available Not available 10/16/2025 1191 RxNorm Not Available [employer] - [employer] - prod 5 09:56:52 712154 Non-stero idal anti-infl ammatory agent (substanc e) medicatio n Not available Not available Not available 10/16/2025 60196 5008 SNOMED Not Available [employer] - [employer] - prod 5 09:56:52 287268 Iodinated contrast media (substanc e) medicatio n Not available Not available Not available 10/16/2025 57160 2004 SNOMED Not Available [employer] - [employer] - prod 5 09:56:52 261872 Victoza medicatio n diarrhea hives nausea Not available Not available Not available Not available 10/19/20252024 47093 3 RxNorm unrec ogniz ed react ion (text : Rash, code: 22362 5008) (from exter nal sourc e) Not Available [employer]ain - [employer] - prod 5 03:58:07 503210 Ozempic medicatio n diarrhea hives nausea Not available Not available Not available Not available 10/19/20252024 22596 07 RxNorm unrec ogniz ed react ion (text : Rash, code: 46283 5008) (from exter nal sourc e) Not Available [employer]ain - [employer] - prod 5 03:58:07 286876 Lasix medicatio n dyspnea hives Not available Not available Not available 10/19/20252024 1 RxNorm unrec ogniz ed react ion (text : Rash, code: 82301 5008) (from exter nal [facility] e) Not Available [facility] [employer] - prod 5 03:58:07 687507 Tylenol medicatio n Not available Not available Not available 10/19/2025202443 3 RxNorm Not Available [employer]ain - [employer] - prod 5 03:58:07 642997 Singulair medicatio n Not available Not available Not available 10/19/20252024 30675 9 RxNorm Not Available [facility] [employer] - prod 5 03:58:07 65371 Product containin g penicilli n (product) medicatio n Not available Not available Not available 01/07/20242010 51423 8001 SNOMED Aller gyRea ction : 'Skin React ion, Nause a/Vom iting /Diar gustavo' ; Not Available [facility] 4 15:13:20 91182 amoxicill in trihydrat e medicatio n Not available Not available Not available 01/07/20242010 27184 8 RxNorm Aller gyRea ction : 'Skin React ion'; Not Available [facility] 4 15:13:20 Medications Name Sig Start [...] Details Last Updated DateTime 10/19/2025 157.48 cm DOMENIC GUILLEN [place] - [facility] 10/19/2025 15:42:06 Social History None recorded. Functional [...] Kidney/Bladder Problems N Anemia N Heart Attack ([place]) N Cholesterol Y Diabetes Y Bleeding Disorder [...] ICD10 Code Diagnosis IMO Codes Diagnosis Note [id number] LEEANN Ribeiro [facility] [place] [address] 10/19/2025 15:35:01 10/20/2025 12:07:08 Osteoarthritis of left knee joint [id number] 35068 M17.12 2407483 Osteoarthr itis of right knee joint 2434342353 85402 M17.11 [id number] Health Concerns Section Related Observation LastModified by Organization Detai ls LastModified Time None Recorded Concern Status LastModified by Organization Details LastModified Time None Recorded Payers Encounter Date Sequence Insurance Name Policy Number Policy Palafox Covered Member ID Palafox Member ID Guarantor Name 10/19/2025 1 [place] [employer] A Farhat [id number] Elyssa A Farhat 10/19/2025 2 [place] [employer] Elyssa A [place] [id number] [place] Notes Date Note Type Note Provider Name and Address Organization Details Recorded Time 10/19/2025 text/html I am seeing the patient [...] pneumatic compression devices. Robert Conde PA-C [address] [facility] [address], [place], [address], [facility] - [facility] 10/20/2025 12:07:06 OBGyn Episode No OBEpisode recorded.
--- OUTSIDE RECORDS SUMMARY | 2025-10-22 11:25 | XMS_ITS | Data Portability ---
Author Organization [facility], [facility] Address [address] [place] [address] Care Team Providers Care Contact Lens Cutter Name Role Phone LIANNA PANCHAL Primary Care Provider [phone] Assessment No assessment recorded. Plan of Treatment [...] Address Organization Details Recorded Time No complaints [id number] Active Status : 'I'; Not Available [facility] 4 09:19:03 Problem Notes None recorded. Procedures Surgical History Date Name Laterality Status Provider Name and Address Organization Details Recorded Time 5 Knee Kenalog 40 1cc Injection, Bilateral completed Robert Conde PA-C [address], [place], [address], [facility] 10/20/2025 12:06:29 5 Knee Kenalog 40 1cc Injection, Bilateral completed Robert Conde PA-C [address], [place], [address], [facility] 07/15/2025 16:42:15 5 Knee Kenalog 40 1cc Injection, Bilateral completed Robert Conde PA-C [address], [place], [address], [facility] 04/01/2025 07:56:50 5 Knee Kenalog 40 1cc Injection, Bilateral completed Robert Elton, PA-C [address], [place], [address], [facility] 12/31/2024 15:24:25 4 Knee Kenalog 40 1cc Injection, Bilateral completed Robert Elton, PA-C [address], [place], [address], [facility] 10/08/2024 13:43:12 4 Knee Kenalog 40 1cc Injection, Bilateral completed Robert Elton, PA-C [address], [place], [address], [facility] 07/09/2024 12:37:00 4 Knee Kenalog 40 1cc Injection, Bilateral completed Robertluigi Vegaa, PA-C [address], [place], [address], [facility] 03/28/2024 08:24:20 Imaging Results None recorded. Procedure Notes None recorded. Medical Equipment None Reported. Allergies Allergen ID Allergen Name Allergen Category Reaction Reaction Severity Criticality Documentation Date Start Date Code Code System Note Provider Name and Address Organization Details Recorded Time [id number] Product containin g angiotens in-conver ting enzyme inhibitor (product) medicatio n Not available Not available Not available 03/27/2024 60329 009 SNOMED RODOLFO JAMES [facility], [facility] 14:45:09 895976 Bactrim medicatio n Not available Not available Not available 03/27/2024 43721 9 RxNorm RODOLFO JAMES [facility], [facility] 14:45:49 185018 metformin medicatio n Not available Not available Not available 03/27/2024 6809 RxNorm RODOLFO JAMES [facility], [facility] 14:46:00 259063 Substance with sulfonami de structure and antibacte rial mechanism of action (substanc e) medicatio n Not available Not available Not available 03/27/2024 29043 8003 SNOMED RODOLFO fernandes [facility] 4 14:46:16 301299 latex environme nt,medica tion Not available Not available Not available 03/27/2024 28489 91 RxNorm RODOLFO fernandes [facility] 4 14:46:24 460977 Lyrica medicatio n Not available Not available Not available 10/08/2024 65129 1 RxNorm DOMENIC MINDY dena, [facility] 4 14:50:46 699416 almond allergeni c extract food dyspnea hives itching rash swelling wheezing Not available Not available Not available Not available Not available Not available high 10/16/20251980 42642 7 RxNorm Other React ion(s ): Anaph ylaxi s Not Available [employer] [facility] 5 09:56:51 103456 amoxicill in medicatio n Not available Not available Not available 10/16/20252021 723 RxNorm Other react ion(s ): Unkno wn Not Available [employer] - prod 5 09:56:51 214096 aluminum aspirin Not available Not available Not available Not available 10/16/20252021 611 RxNorm Other react ion(s ): sensi tivit y Not Available [employer] - prod 5 09:56:51 455296 azithromy gagandeep medicatio n rash Not available low 10/16/20252021 41830 RxNorm Not Available [employer] - prod 5 09:56:51 901996 buspirone medicatio n anxiety dyspnea rash swelling wheezing Not available Not available Not available Not available Not available high 10/16/20252024 1827 RxNorm Not Available [employer] - prod 5 09:56:51 381618 clonidine medicatio n Not available Not available low 10/16/20252022 2599 RxNorm Low blood press ure, nause a, vomit ing Not Available [employer] - prod 5 09:56:51 260995 desvenlaf axine succinate medicatio n swelling Not available Not available 10/16/20252021 14126 3 RxNorm Whole body swell ing Not Available [employer] - prod 5 09:56:51 840718 furosemid e medicatio n rash wheezing Not available Not available low 10/16/20252021 4603 RxNorm Not Available [employer] - prod 5 09:56:51 966720 iodine medicatio n rash Not available low 10/16/20252021 5933 RxNorm Not Available [employer] - prod 5 09:56:51 302927 liragluti de medicatio n diarrhea hives nausea rash Not available Not available Not available Not available low 10/16/20252021 04800 8 RxNorm Other react ion(s ): Unkno wn Not Available [employer] - prod 5 09:56:51 353225 lisinopri l medicatio n Not available Not available Not available 10/16/20252021 19936 RxNorm Other react ion(s ): edema Not Available [employer] - prod 5 09:56:51 627981 pregabali n medicatio n itching swelling Not available Not available high 10/16/20252023 30179 2 RxNorm Not Available [employer] - prod 5 09:56:[address] medicatio n rash Not available low 10/16/20252021 72556 RxNorm Not Available [employer] - prod 5 09:56:51 668233 omalizuma b medicatio n anaphylax is Not available high 10/16/20252021 87479 9 RxNorm Not Available [employer] - [employer] - prod 5 09:56:51 073883 penicilli n G Not available Not available Not available Not available 10/16/20252021 7980 RxNorm Other react ion(s ): Unkno wn Not Available dain - [employer] - prod 5 09:56:51 313367 pravastat in medicatio n rash Not available low 10/16/20252021 66800 RxNorm Not Available [employer] - [employer] - prod 5 09:56:51 280859 semagluti de medicatio n Not available Not available Not available 10/16/20252021 78841 02 RxNorm Other react ion(s ): N and V Not Available [employer] - prod 5 09:56:51 269076 spironola ctone medicatio n rash Not available low 10/16/20252021 9997 RxNorm Not Available [employer] - prod 5 09:56:51 852702 sulfameth oxazole / trimethop rim medicatio n anaphylax is Not available high 10/16/20252021 59376 RxNorm Not Available [employer] - prod 5 09:56:51 879202 sumatript an medicatio n Not available Not available Not available 10/16/20252021 81032 RxNorm Other react ion(s ): eleva hanny blood press ure Not Available [employer] - prod 5 09:56:51 404392 acetamino phen medicatio n hives Not available Not available 10/16/20252021 161 RxNorm Other react ion(s ): facia l swell ing Not Available [employer] - prod 5 09:56:51 404848 vortioxet ine hydrobrom bora medicatio n anxiety swelling Not available Not available low 10/16/20252024 69377 34 RxNorm Not Available [facility] - [employer] - prod 5 09:56:51 418328 ascorbic acid / cholecalc iferol / folic acid / niacin / riboflavi n / sodium fluoride / thiamine / vitamin A / vitamin B12 / vitamin B6 / vitamin E medicatio n Not available Not available Not available 10/16/2025 96040 81 RxNorm Not Available [facility] - [employer] - prod 5 09:56:52 384352 sulfadiaz ine medicatio n Not available Not available Not available 10/16/2025 04524 RxNorm Not Available [employer] - [employer] - prod 5 09:56:52 609007 aspirin medicatio n Not available Not available Not available 10/16/2025 1191 RxNorm Not Available [employer] - [employer] - prod 5 09:56:52 107005 Non-stero idal anti-infl ammatory agent (substanc e) medicatio n Not available Not available Not available 10/16/2025 19717 5008 SNOMED Not Available [employer] - [employer] - prod 5 09:56:52 131808 Iodinated contrast media (substanc e) medicatio n Not available Not available Not available 10/16/2025 75339 2004 SNOMED Not Available [facility] - [employer] - prod 5 09:56:52 404052 Victoza medicatio n diarrhea hives nausea Not available Not available Not available Not available 10/19/20252024 25548 3 RxNorm unrec ogniz ed react ion (text : Rash, code: 04544 5008) (from exter nal sourc e) Not Available [facility]ain - [employer] - prod 5 03:58:07 233349 Ozempic medicatio n diarrhea hives nausea Not available Not available Not available Not available 10/19/20252024 12331 07 RxNorm unrec ogniz ed react ion (text : Rash, code: 16280 5008) (from exter nal sourc e) Not Available [facility] - [employer] - prod 5 03:58:07 725907 Lasix medicatio n dyspnea hives Not available Not available Not available 10/19/20252024 1 RxNorm unrec ogniz ed react ion (text : Rash, code: 82317 5008) (from exter nal [facility] e) Not Available [facility] External [employer] - prod 5 03:58:07 348762 Tylenol medicatio n Not available Not available Not available 10/19/2025202443 3 RxNorm Not Available [facility] [employer] - prod 5 03:58:07 395295 Singulair medicatio n Not available Not available Not available 10/19/20252024 01193 9 RxNorm Not Available [facility] [employer] - prod 5 03:58:07 52960 Product containin g penicilli n (product) medicatio n Not available Not available Not available 01/07/20242010 95362 8001 SNOMED Aller gyRea ction : 'Skin React ion, Nause a/Vom iting /Diar gustavo' ; Not Available [facility] 4 15:13:20 73224 amoxicill in trihydrat e medicatio n Not available Not available Not available 01/07/20242010 21743 8 RxNorm Aller gyRea ction : 'Skin React ion'; Not Available [facility] 4 15:13:20 Medications Name Sig Start Date [...] Details Last Updated DateTime 12/31/2024 157.48 cm [facility] 12/31/2024 14:28:54 Date Recorded Body height Provider Name an d Address Organization Details Last Updated DateTime 04/01/2025 157.48 cm [facility] 04/01/2025 15:30:39 Date Recorded Body height Provider Name an d Address Organization Details Last Updated DateTime 07/15/2025 157.48 cm [facility] 07/15/2025 14:55:05 Date Recorded Body height Provider Name an d Address Organization Details Last Updated DateTime 10/08/2024 157.48 cm [facility] 10/08/2024 14:49:10 Date Recorded Body height Provider Name an d Address Organization Details Last Updated DateTime 10/19/2025 157.48 cm [facility] 10/19/2025 15:42:06 Social History None recorded. Functional Status None recorded. Mental Status None recorded. Family History Nothing Reported. Medical History Condition Response Allergies/Hayfever N Coronary Artery Disease N Anxiety/Depression N Breathing or lung disorders Y Emphysema N Nerve Disorders N Thyroid Problems Y COPD N Pacemaker N Anemia N Kidney/Bladder Problems N Vascular Disease N Heart Trouble N Heart Attack ([place]) N Gastrointestinal Disease N Cholesterol Y Diabetes [...] ICD10 Code Diagnosis IMO Codes Diagnosis Note [id number] LEEANN Ribeiro [address] [place] [address] 03/27/2024 13:58:04 04/16/2024 13:21:33 Pain of right knee joint 0155791683 53818 M25.561 Osteoarthr itis of left knee joint 9611045971 81235 M17.12 [id number] LEEANN Ribeiro [address] [place] [address] 07/09/2024 14:07:17 07/30/2024 11:29:18 Osteoarthritis of left knee joint 0973322693 16005 M17.12 Pain of ri ght knee joint 0255994286 35732 M25.018 [id number] LEEANN Ribeiro [address] [place] [address] 10/08/2024 14:46:36 11/03/2024 13:40:49 Osteoarthritis of left knee joint 3196718116 87494 M17.12 8107654 Osteoarthr itis of right knee joint 8290988168 17642 M17.11 [address]326[id number] [place] [address] 12/31/2024 14:17:58 01/12/2025 12:14:57 Osteoarthritis of left knee joint 0886230491 84152 M17.12 4619196 Osteoarthr itis of right knee joint 0565921695 34104 M17.11 8584918 [id number] LEEANN Ribeiro Clinical [address] [place] [address] 04/01/2025 15:11:57 04/08/2025 14:00:33 Osteoarthritis of left knee joint 4952122411 32208 M17.12 1243748 Osteoarthr itis of right knee joint 3835974968 36408 M17.11 0545389 [id number] LEEANN Ribe[facility] [address] [place] [address] 07/15/2025 14:51:53 07/23/2025 15:49:13 Osteoarthritis of left knee joint 1070516717 28455 M17.12 7691584 Osteoarthr itis of right knee joint 7644401058 44597 M17.11 9339423 [id number] LEEANN Ribeiro [facility] [address] [place] [address] 10/19/2025 15:35:01 10/20/2025 12:07:08 Osteoarthritis of left knee joint 8037772154 61447 M17.12 8079105 Osteoarthr itis of right knee joint 2420699910 28726 M17.11 [id number] Health Concerns Section Related Observation LastModified by Organization Detai ls LastModified Time None Recorded Concern Status LastModified by Organization Details LastModified Time None Recorded Advance Directives Directive None Recorded Payers Insurance Date Sequence Insurance Name Policy Number Policy Palafox Covered Member ID Palafox Member ID Guarantor Name 10/19/2025 1 [place] [facility] [id number] Elyssa A Farhat 10/19/2025 2 [place] [facility] Elyssa A Farhat [id number] Elyssa A Farhat Notes Date Note Type [...] continued conservative treatment. Robert Conde PA-C [address] [facility] [address], [place], [address], [facility] 10/08/2024 15:02:32 12/31/2024 text/html [...] continued conservative treatment. Robert Conde PA-C [address], [place], [address], [facility] 12/31/2024 15:24:59 04/01/2025 text/html [...] continued conservative treatment. Robert Conde PA-C [address], [place], [address], [place] [facility] 04/01/2025 16:26:04 07/15/2025 text/html [...] pneumatic compression devices. Robert Conde PA-C [address], [place], [address], [facility] 07/15/2025 16:42:38 10/19/2025 text/html [...] pneumatic compression devices. Robert Conde PA-C [address], [place], [address], [facility] 10/20/2025 12:07:06 OBGyn Episode No OBEpisode recorded.
== END 2025-10-22 09:42 | disposition home or self-care (01) ==
LOC: HO.XRAY 09:41
PROVIDERS: Visit Provider Student in an Organized Health Care Education/Training Program
DX: M19.90 Unspecified osteoarthritis, unspecified site (principal)
CPT/HCPCS: 73030; 73100; 73120; 73521

== ENCOUNTER → 2025-10-22 09:46 | Outpatient (BNV) | payer MEDICARE, MEDICAID, SELFPAY | PROVIDERS: Visit Provider Radiology Diagnostic Radiology | DX: M19.90 Unspecified osteoarthritis, unspecified site (principal); M19.011 Primary osteoarthritis, right shoulder; M19.012 Primary osteoarthritis, left shoulder; M19.041 Primary osteoarthritis, right hand; M19.042 Primary osteoarthritis, left hand; M19.031 Primary osteoarthritis, right wrist; M19.032 Primary osteoarthritis, left wrist | CPT/HCPCS: 73030; 73100; 73120; 73521 ==

== ENCOUNTER 2025-10-23 12:39 | Outpatient (REF) | payer MEDICARE, MEDICAID, SELFPAY ==
--- OUTSIDE RECORDS SUMMARY | 2025-10-23 14:26 | XMS_ITS | Encounter Summary ---
Author Organization [employer] Address [address] [facility] [facility] [address] [place] [address] Care Team Providers Care Interim Controller Name Role Phone Lei Thacker Unavailable Unavailable Sharmila Azar DO Primary Care Provider [phone] Inactive/Transferred Primary Care Provider Unava ilable Inactive/Transferred Primary Care Provider Unava ilable Reason for Visit * Reason Onset Date Comments Med Refill 02/18/2025 Encounter Details Date Type Department Care Team (Late st Contact Info) Description 02/18/2025 Refill [facility] [address] [place] [address] Sharmila Azar DO [address] [place] [address] Anxiety; PTSD (post-traumatic stress disorder) Social History [...] documented as of this encounter Care Teams Interim Controller Relationship Specialty Start Date End Date Sharmila Azar DO [address] [place] [address] PCP - General Family Medicine 11/02/24 06/17/25 Inactive/Transferred PCP - General 06/18/25 06/18/25 Inactive/Transferred PCP - General 08/12/25 Lei Thacker Health Navigator 09/17/24 documented as of this encounter
--- OUTSIDE RECORDS SUMMARY | 2025-10-23 14:26 | XMS_ITS | Encounter Summary ---
Author Organization [employer] Address [address] [facility] [address] [place] [address] Care Team Providers Care Dispensing Operator Name Role Phone Lei Thacker Unavailable Unavailable Sharmila Azar DO Primary Care Provider [phone] Inactive/Transferred Primary Care Provider Unava ilable Inactive/Transferred Primary Care Provider Unava ilable Reason for Visit * Reason Comments Med Change Request Encounter Details Date Type Department Care Team (Late st Contact Info) Description 03/06/2025 Chasill Pat [facility] MEDICAL [address] [place] [address] Sharmila Azar DO [address] [place] [address] Type 2 diabetes mellitus with diabetic polyneuropathy, with long-term current use of insulin ([facility]) Social History [...] documented as of this encounter Care Teams Dispensing Operator Relationship Specialty Start Date End Date Sharmila Azar DO [address] [place] [address] PCP - General Family Medicine 11/02/24 06/17/25 Inactive/Transferred PCP - General 06/18/25 06/18/25 Inactive/Transferred PCP - General 08/12/25 Lei Thacker Health Navigator 09/17/24 documented as of this encounter
--- OUTSIDE RECORDS SUMMARY | 2025-10-23 14:26 | XMS_ITS | Encounter Summary ---
Author Organization [employer] Address [address] [place] [address] Care Team Providers Care [employer] Name Role Phone Francheska Tucker NP Primary Care Provider UnavailLei Paulson Unavailable Unavailable Sharmila Azar DO Primary Care Provider [phone] Inactive/Transferred Primary Care Provider Unava ilable Inactive/Transferred Primary Care Provider Unava ilable Encounter Details Date Type Department Care Team (Late st Contact Info) Description 06/25/2024 Orders Only [facility] MEDICAL [address] [place] [address] Provider, MD Sharad Social History Tobacco Use [...] documented as of this encounter Care Teams [employer] Relationship Specialty Start Date End Date Francheska Tucker NP PCP - General Family Medicine 10/25/23 11/01/24 Sharmila Azar DO [address] [place] [address] PCP - General Family Medicine 11/02/24 06/17/25 Inactive/Transferred PCP - General 06/18/25 06/18/25 Inactive/Transferred PCP - General 08/12/25 Lei Thacker Health Navigator 09/17/24 documented as of this encounter
--- OUTSIDE RECORDS SUMMARY | 2025-10-23 14:26 | XMS_ITS | Encounter Summary ---
Author Organization [employer] Address 75 [facility] 7 [place] [address] Care Team Providers Care Compliance Coordinator Name Role Phone Lei Thacker Unavailable Unavailable Sharmila Azar DO Primary Care Provider [phone] Inactive/Transferred Primary Care Provider Unava ilable Inactive/Transferred Primary Care Provider Unava ilable Reason for Visit * Reason Comments Med Refill Encounter Details Date Type Department Care Team (Late st Contact Info) Description 03/02/2025 Refill [place] [facility] [address] [place] [address] Sharmila Azar DO 73 [place] [address] Anxiety; PTSD (post-traumatic stress disorder) Social History [...] documented as of this encounter Care Teams Compliance Coordinator Relationship Specialty Start Date End Date Sharmila Azar DO [address] [place] [address] PCP - General Family Medicine 11/02/24 06/17/25 Inactive/Transferred PCP - General 06/18/25 06/18/25 Inactive/Transferred PCP - General 08/12/25 Lei Thacker Health Navigator 09/17/24 documented as of this encounter
--- OUTSIDE RECORDS SUMMARY | 2025-10-23 14:27 | XMS_ITS | Encounter Summary ---
Author Organization [employer] Address [address] [place] [address] 7 [place] [address] Care Team Providers Care Turner And Former Automatic Name Role Phone Shilpa Miller CNP Primary Care Provider [phone] Francheska Tucker NP Primary Care Provider UnavailLei Paulson Unavailable Unavailable Sharmila Azar DO Primary Care Provider [phone] Inactive/Transferred Primary Care Provider Unava ilable Inactive/Transferred Primary Care Provider Unava ilable Reason for Visit * Reason Comments Med Refill Encounter Details Date Type Department Care Team (Late st Contact Info) Description 07/25/2023 Refill Pat [facility] MED[facility] [address] [place] [address] Shilpa Miller CNP 73 [place] [address] Hypothyroidism, unspecified Social History Tobacco Use Types [...] unspecified documented in this encounter Care Teams Turner And Former Automatic Relationship Specialty Start Date End Date Shilpa Miller CNP [address] [place] [address] PCP - General Family Medicine 10/16/22 10/24/23 Francheska Tucker NP [address] [place] [address] PCP - General Family Medicine 10/25/23 11/01/24 Sharmila Azar DO [address] [place] [address] PCP - General Family Medicine 11/02/24 06/17/25 Inactive/Transferred PCP - General 06/18/25 06/18/25 Inactive/Transferred PCP - General 08/12/25 Lei Thacker Health Navigator 09/17/24 documented as of this encounter
--- OUTSIDE RECORDS SUMMARY | 2025-10-23 14:27 | XMS_ITS | Encounter Summary ---
Author Organization [employer] Address 75 [facility] 7 [place] [address] Care Team Providers Care Repairer Handtools Name Role Phone Lei Thacker Unavailable Unavailable Sharmila Azar DO Primary Care Provider Inactive/Transferred Primary Care Provider Unava ilable Inactive/Transferred Primary Care Provider Unava ilable Reason for Visit * Reason Onset Date Comments Med Refill 11/27/2024 Encounter Details Date Type Department Care Team (Late st Contact Info) Description 11/27/2024 Refill Pat [facility] [address] [place] [address] Sharmila Azar DO 73 [place] [address] Anxiety; PTSD (post-traumatic stress disorder) Social History [...] documented as of this encounter Care Teams Repairer Handtools Relationship Specialty Start Date End Date Sharmila Azar DO 73 [place] [address] PCP - General Family Medicine 11/02/24 06/17/25 Inactive/Transferred PCP - General 06/18/25 06/18/25 Inactive/Transferred PCP - General 08/12/25 Lei Thacker Health Navigator 09/17/24 documented as of this encounter
--- OUTSIDE RECORDS SUMMARY | 2025-10-23 14:27 | XMS_ITS | Encounter Summary ---
Author Organization [employer] Address 75 [facility] 7 [place] [address] Care Team Providers Care Principal Trainer Name Role Phone Francheska Tucker NP Primary Care Provider UnavailLei Paulson Unavailable Unavailable Sharmila Azar DO Primary Care Provider [phone] Inactive/Transferred Primary Care Provider Unava ilable Inactive/Transferred Primary Care Provider Unava ilable Reason for Visit * Reason Comments Med Change Request Encounter Details Date Type Department Care Team (Late st Contact Info) Description 2024 Refill Pat [facility] [address] [place] [id number] Francheska Tucker NP Type 2 diabetes mellitus with diabetic polyneuropathy, with long-term current use of insulin ([facility]) Social History Tobacco [...] the past 12 months, has t he [employer], gas, oil or water [employer] threatened to shut off services in your [...] documented as of this encounter Care Teams Principal Trainer Relationship Specialty Start Date End Date Francheska Tucker NP PCP - General Family Medicine 10/25/23 11/01/24 Sharmila Azar DO [address] [place] [address] PCP - General Family Medicine 11/02/24 06/17/25 Inactive/Transferred PCP - General 06/18/25 06/18/25 Inactive/Transferred PCP - General 08/12/25 Lei Thacker Health Navigator 09/17/24 documented as of this encounter
--- OUTSIDE RECORDS SUMMARY | 2025-10-23 14:27 | XMS_ITS | Encounter Summary ---
Author Organization [employer] Address 75 [facility] 7t [place] [address] Care Team Providers Care Supervisor Hardboard Name Role Phone Francheska Tucker NP Primary Care Provider UnavailLei Paulson Unavailable Unavailable Sharmila Azar DO Primary Care Provider [phone] Inactive/Transferred Primary Care Provider Unava ilable Inactive/Transferred Primary Care Provider Unava ilable Encounter Details Date Type Department Care Team (Late st Contact Info) Description 07/25/2024 Orders Only [facility] [address] [place] [address] Francheska Tucker NP Social History Tobacco Use [...] the past 12 months, has t he [employer], gas, oil or water company threatened to [...] Right Rad iographic Imaging us Francheska Tucker WOODWORKING MACHINE SETTER IMG XR PROCEDURES Final Result documented in this encounter Visit Diagnoses Not on filedocumented in this encounter Additional Health Concerns Assessment Noted Time PHQ-9 Depression Total Score: 20 024 7:38 AM EDT documented as of this encounter Care Teams Supervisor Hardboard Relationship Specialty Start Date End Date Francheska Tucker NP PCP - General Family Medicine 10/25/23 11/01/24 Sharmila Azar DO [address] [place] [address] PCP - General Family Medicine 11/02/24 06/17/25 Inactive/Transferred PCP - General 06/18/25 06/18/25 Inactive/Transferred PCP - General 08/12/25 Lei Thacker Health Navigator 09/17/24 documented as of this encounter
--- OUTSIDE RECORDS SUMMARY | 2025-10-23 14:27 | XMS_ITS | Encounter Summary ---
Author Organization [employer] Address 75 [facility] 7 [place] [address] Care Team Providers Care Engraver Apprentice Decorative Name Role Phone Francheska Tucker NP Primary Care Provider UnavailLei Paulson Unavailable Sharmila Collins DO Primary Care Provider [phone] Inactive/Transferred Primary Care Provider Unava ilable Inactive/Transferred Primary Care Provider Unava ilable Reason for Visit * Reason Comments Med Refill Encounter Details Date Type Department Care Team (Late st Contact Info) Description 03/21/2024 Refill Pat [facility] 12 [place] [address] Shilpa Miller, CHEF CONCIERGE [address] [place] [address] Type 2 diabetes mellitus with diabetic polyneuropathy, with long-term current use of insulin ([facility]) Social History Tobacco Use [...] documented as of this encounter Care Teams Engraver Apprentice Decorative Relationship Specialty Start Date End Date Francheska Tucker NP PCP - General Family Medicine 10/25/23 11/01/24 Sharmila Azar DO [address] [place] [address] PCP - General Family Medicine 11/02/24 06/17/25 Inactive/Transferred PCP - General 06/18/25 06/18/25 Inactive/Transferred PCP - General 08/12/25 Lei Thacker Health Navigator 09/17/24 documented as of this encounter
--- OUTSIDE RECORDS SUMMARY | 2025-10-23 14:27 | XMS_ITS | Encounter Summary ---
Author Organization [employer] Address 75 [facility] 7t [place] [address] Care Team Providers Care Telephone Maintainer Name Role Phone Lei Thacker Unavailable Unavailable Sharmila Azar Primary Care Provider [phone] Inactive/Transferred Primary Care Provider Unava ilable Inactive/Transferred Primary Care Provider Unava ilable Reason for Visit * Reason Onset Date Comments Med Refill 02/09/2025 Encounter Details Date Type Department Care Team (Late st Contact Info) Description 02/09/2025 Refill Pat [facility] [address] [place] [address] Francheska Tucker NP Type 2 diabetes mellitus [...] documented as of this encounter Care Teams Telephone Maintainer Relationship Specialty Start Date End Date Sharmila Azar DO 73 [place] [address] PCP - General Family Medicine 11/02/24 06/17/25 Inactive/Transferred PCP - General 06/18/25 06/18/25 Inactive/Transferred PCP - General 08/12/25 Lei Thacker Health Navigator 09/17/24 documented as of this encounter
--- OUTSIDE RECORDS SUMMARY | 2025-10-23 14:27 | XMS_ITS | Encounter Summary ---
Author Organization [employer] Address 75 [facility] 7t [place] [address] Care Team Providers Care Telephone Betting Clerk Name Role Phone Francheska Tucker NP Primary Care Provider UnavailLei Paulson Unavailable Unavailable Sharmila Azar DO Primary Care Provider [phone] Inactive/Transferred Primary Care Provider Unava ilable Inactive/Transferred Primary Care Provider Unava ilable Encounter Details Date Type Department Care Team (Late st Contact Info) Description 07/04/2024 Orders Only [facility] MEDICAL [address] [place] [address] Francheska Tucker NP Social History Tobacco Use [...] as of this encounter Care Teams Telephone Betting Clerk Relationship Specialty Start Date End Date Francheska Tucker NP PCP - General Family Medicine 10/25/23 11/01/24 Sharmila Azar DO [address] [place] [address] PCP - General Family Medicine 11/02/24 06/17/25 Inactive/Transferred PCP - General 06/18/25 06/18/25 Inactive/Transferred PCP - General 08/12/25 Lei Thacker Health Navigator 09/17/24 documented as of this encounter
--- OUTSIDE RECORDS SUMMARY | 2025-10-23 14:27 | XMS_ITS | Encounter Summary ---
Author Organization [employer] Address 75 [facility] 7 [place] [address] Care Team Providers Care Metal Grinder Name Role Phone Lei Thacker Unavailable Unavailable Sharmila Azar DO Primary Care Provider [phone] Inactive/Transferred Primary Care Provider Unava ilable Inactive/Transferred Primary Care Provider Unava ilable Reason for Visit * Reason Comments Med Change Request Encounter Details Date Type Department Care Team (Late st Contact Info) Description 12/25/2024 Refill Pat [facility] 73 [place] [address] Sharmila Azar DO [address] [place] [address] Mild intermittent asthma without complication Social History [...] t he electric, gas, oil or water [employer] threatened to shut off services in your [...] documented as of this encounter Care Teams Metal Grinder Relationship Specialty Start Date End Date Sharmila Azar DO 73 [place] [address] PCP - General Family Medicine 11/02/24 06/17/25 Inactive/Transferred PCP - General 06/18/25 06/18/25 Inactive/Transferred PCP - General 08/12/25 Lei Thacker Health Navigator 09/17/24 documented as of this encounter
--- OUTSIDE RECORDS SUMMARY | 2025-10-23 14:27 | XMS_ITS | Encounter Summary ---
Author Organization [employer] Address [address] [place] [address] 7 [place] [address] Care Team Providers Care Sawmill Worker Name Role Phone Shilpa Miller CNP Primary Care Provider [phone] Francheska Tucker NP Primary Care Provider UnavailLei Paulson Unavailable Unavailable Sharmila Azar DO Primary Care Provider [phone] Inactive/Transferred Primary Care Provider Unava ilable Inactive/Transferred Primary Care Provider Unava ilable Encounter Details Date Type Department Care Team (Late st Contact Info) Description 01/31/2023 Abstract Pat [facility] [address] [place] [address] Shilpa Miller CNP [address] [place] [address] Social History Tobacco Use Types Packs/Day Years [...] on filedocumented in this encounter Care Teams Sawmill Worker Relationship Specialty Start Date End Date Shilpa Miller CNP [address] [place] [address] PCP - General Family Medicine 10/16/22 10/24/23 Francheska Tucker NP [address] [place] [address] PCP - General Family Medicine 10/25/23 11/01/24 Sharmila Azar DO [address] [place] [address] PCP - General Family Medicine 11/02/24 06/17/25 Inactive/Transferred PCP - General 06/18/25 06/18/25 Inactive/Transferred PCP - General 08/12/25 Lei Thacker Health Navigator 09/17/24 documented as of this encounter
--- OUTSIDE RECORDS SUMMARY | 2025-10-23 14:27 | XMS_ITS | Encounter Summary ---
Author Organization [employer] Address 75 [facility] 7t [place] [address] Care Team Providers Care Embroidery Specialist Name Role Phone Lei Thacker Unavailable Unavailable Inactive/Transferred Primary Care Provider Unava ilable Encounter Details Date Type Department Care Team (Late st Contact Info) Description 07/17/2025 Orders Only Pat [facility] [address] [place] [address] Sharmila Azar DO 73 [place] [address] Arthralgia of both knees (Primary Dx); Lymphedema; [...] Expected: 07/23/2025 (Approximate), Expires: 07/23/2026 Blood culture [id number] Microbiology Routine Abnormal CBC ESR raised Expected: 07/23/2025, Expires: 07/23/2026 documented as of this encounter Procedures Procedure Name Priority Date/Time Associated Diagnosis Comments CBC WITH AUTO DIFFERENTIAL Routine 07/20/2025 9:20 AM EDT Arthralgia of both knees Lymphedema COMPREHENSIVE METABOLIC PANEL Routine 07/20/2025 9:20 AM EDT Arthralgia of both knees Lymphedema documented in this encounter Results * (ABNORMAL) Comprehensive Metabolic Panel [[id number]] (07/20/2025 9:20 AM EDT) Glucose 143(H) 70 [...] Resulting Agency Comment Performed at: 01 - [facility] [id number] [employer] Report Developer: Megan Curry MD, Phone: [phone] us Sharmila Azar DO LAB BLOOD ORDERABLES [...] Resulting Agency Comment Performed at: 01 - [facility] [id number] [employer] Report Developer: Megan Curry MD, Phone: [phone] us Sharmila Azar DO LAB BLOOD ORDERABLES [...] documented as of this encounter Care Teams Embroidery Specialist Relationship Specialty Start Date End Date Inactive/Transferred PCP - General 08/12/25 Lei Thacker Health Navigator 09/17/24 documented as of this encounter
--- OUTSIDE RECORDS SUMMARY | 2025-10-23 14:27 | XMS_ITS | Encounter Summary ---
Author Organization [employer] Address 75 [facility] 7t [place] [address] Care Team Providers Care Transferrer Name Role Phone Lei Thacker Unavailable Unavailable Sharmila Azar Primary Care Provider [phone] Inactive/Transferred Primary Care Provider Unava ilable Inactive/Transferred Primary Care Provider Unava ilable Reason for Visit * Reason Onset Date Comments Med Refill 01/31/2025 Encounter Details Date Type Department Care Team (Late st Contact Info) Description 01/31/2025 Refill Pat [facility] MED[facility] [address] [place] [address] Francheska Tucker NP Essential (primary) hypertension Social [...] documented as of this encounter Care Teams Transferrer Relationship Specialty Start Date End Date Sharmila Azar DO [address] [place] [address] PCP - General Family Medicine 11/02/24 06/17/25 Inactive/Transferred PCP - General 06/18/25 06/18/25 Inactive/Transferred PCP - General 08/12/25 Lei Thacker Health Navigator 09/17/24 documented as of this encounter
--- OUTSIDE RECORDS SUMMARY | 2025-10-23 14:27 | XMS_ITS | Encounter Summary ---
Author Organization [employer] Address [address] [facility] [address] 7t [place] [address] Care Team Providers Care Advertising Operations Coordinator Name Role Phone Francheska Tucker NP Primary Care Provider UnavailLei Paulson Unavailable Unavailable Sharmila Azar DO Primary Care Provider [phone] Inactive/Transferred Primary Care Provider Unava ilable Inactive/Transferred Primary Care Provider Unava ilable Encounter Details Date Type Department Care Team (Late st Contact Info) Description 12/19/2023 Orders Only [facility] MEDICAL [address] [place] [address] Provider, MD Sharad Social History Tobacco Use [...] on filedocumented in this encounter Care Teams Advertising Operations Coordinator Relationship Specialty Start Date End Date Francheska Tucker NP PCP - General Family Medicine 10/25/23 11/01/24 Sharmila Azar DO [address] [place] [address] PCP - General Family Medicine 11/02/24 06/17/25 Inactive/Transferred PCP - General 06/18/25 06/18/25 Inactive/Transferred PCP - General 08/12/25 Lei Thacker Health Navigator 09/17/24 documented as of this encounter
--- OUTSIDE RECORDS SUMMARY | 2025-10-23 14:27 | XMS_ITS | Encounter Summary ---
Author Organization [employer] Address 75 [facility] 7 [place] [address] Care Team Providers Care Quarter Backer Name Role Phone Lei Thacker Unavailable Unavailable Sharmila Azar DO Primary Care Provider [phone] Inactive/Transferred Primary Care Provider Unava ilable Inactive/Transferred Primary Care Provider Unava ilable Reason for Visit * Reason Onset Date Comments Med Refill 12/24/2024 Encounter Details Date Type Department Care Team (Late st Contact Info) Description 12/24/[address] [place] [facility] [address] [place] [address] Sharmila Azar DO [address] [place] [address] Anxiety; PTSD (post-traumatic stress disorder) Social History [...] documented as of this encounter Care Teams Quarter Backer Relationship Specialty Start Date End Date Sharmila Azar DO [address] [place] [address] PCP - General Family Medicine 11/02/24 06/17/25 Inactive/Transferred PCP - General 06/18/25 06/18/25 Inactive/Transferred PCP - General 08/12/25 Lei Thacker Health Navigator 09/17/24 documented as of this encounter
--- OUTSIDE RECORDS SUMMARY | 2025-10-23 14:27 | XMS_ITS | Encounter Summary ---
Author Organization [employer] Address 75 [facility] 7 [place] [address] Care Team Providers Care Production Mechanic Name Role Phone Francheska Tucker NP Primary Care Provider UnavailLei Paulson Unavailable Unavailable Sharmila Azar DO Primary Care Provider Inactive/Transferred Primary Care Provider Unava ilable Inactive/Transferred Primary Care Provider Unava ilable Reason for Visit * Reason Comments Med Change Request Encounter Details Date Type Department Care Team (Late st Contact Info) Description 05/26/2024 Refill Pat [facility] [address] [place] [id number] Francheska Tucker NP Type 2 diabetes mellitus with diabetic polyneuropathy, with long-term current use of insulin ([facility]) Social History Tobacco Use Types Packs/Day Years [...] the past 12 months, has t he [employer], gas, oil or water [employer] threatened to shut off services in your [...] documented as of this encounter Care Teams Production Mechanic Relationship Specialty Start Date End Date Francheska Tucker NP PCP - General Family Medicine 10/25/23 11/01/24 Sharmila Azar DO [address] [place] [address] PCP - General Family Medicine 11/02/24 06/17/25 Inactive/Transferred PCP - General 06/18/25 06/18/25 Inactive/Transferred PCP - General 08/12/25 Lei Thacker Health Navigator 09/17/24 documented as of this encounter
--- OUTSIDE RECORDS SUMMARY | 2025-10-23 14:27 | XMS_ITS | Encounter Summary ---
Author Organization [employer] Address [address] [place] [address] 7 [place] [address] Care Team Providers Care Activity Therapy Teacher Name Role Phone Francheska Tucker NP Primary Care Provider UnavailLei Paulson Unavailable Sharmila Collins DO Primary Care Provider [phone] Inactive/Transferred Primary Care Provider Unava ilable Inactive/Transferred Primary Care Provider Unava ilable Reason for Visit * Reason Comments Med Change Request Encounter Details Date Type Department Care Team (Late st Contact Info) Description 05/12/2024 Oneyda Stewart [facility] MED[facility] [address] [place] [address] Shilpa Miller, MARIA C [address] [place] [address] Psychophysiological insomnia Social History Tobacco Use Types [...] documented as of this encounter Care Teams Activity Therapy Teacher Relationship Specialty Start Date End Date Francheska Tucker NP PCP - General Family Medicine 10/25/23 11/01/24 Sharmila Azar DO [address] [place] [address] PCP - General Family Medicine 11/02/24 06/17/25 Inactive/Transferred PCP - General 06/18/25 06/18/25 Inactive/Transferred PCP - General 08/12/25 Lei Thacker Health Navigator 09/17/24 documented as of this encounter
--- OUTSIDE RECORDS SUMMARY | 2025-10-23 14:27 | XMS_ITS | Encounter Summary ---
Author Organization [employer] Address 75 [facility] 7t [place] [address] Care Team Providers Care Wind Turbine Sheet Metal Worker Name Role Phone Francheska Tucker NP Primary Care Provider UnavailLei Paulson Unavailable Sharmila Collins DO Primary Care Provider [phone] Inactive/Transferred Primary Care Provider Unava ilable Inactive/Transferred Primary Care Provider Unava ilable Reason for Visit * Reason Comments Med Change Request Encounter Details Date Type Department Care Team (Late st Contact Info) Description 01/14/2024 Oneyda Stewart [facility] MED[facility] [address] [place] [address] Shilpa Miller, ACADEMIC ADVISEMENT DIRECTOR [address] [place] [address] Type 2 diabetes mellitus with diabetic polyneuropathy, with long-term current use of insulin ([facility]) Social History Tobacco Use Types [...] the past 12 months, has t he [employer], gas, oil or water [employer] threatened to shut off services in your [...] was filled out yesterday and faxed to [employer] there was another TE on this. documented in this encounter Plan of Treatment Not on file documented as of this encounter Visit Diagnoses Diagnosis Type 2 diabetes mellitus with diabetic polyneuropathy, with long-term current use of insulin (HCC) documented in this encounter Care Teams Wind Turbine Sheet Metal Worker Relationship Specialty Start Date End Date Francheska Tucker NP PCP - General Family Medicine 10/25/23 11/01/24 Sharmila Azar DO 73 [place] [address] PCP - General Family Medicine 11/02/24 06/17/25 Inactive/Transferred PCP - General 06/18/25 06/18/25 Inactive/Transferred PCP - General 08/12/25 Lei Thacker Health Navigator 09/17/24 documented as of this encounter
--- OUTSIDE RECORDS SUMMARY | 2025-10-23 14:27 | XMS_ITS | Encounter Summary ---
Author Organization [employer] Address [address] [facility] [address] 7[address] [place] [address] Care Team Providers Care Poultry Husbandman Name Role Phone Francheska Tucker NP Primary Care Provider UnavailLei Paulson Unavailable Sharmila Collins DO Primary Care Provider [phone] Inactive/Transferred Primary Care Provider Unava ilable Inactive/Transferred Primary Care Provider Unava ilable Reason for Visit * Reason Onset Date Comments Med Refill 05/21/2024 Encounter Details Date Type Department Care Team (Late st Contact Info) Description 05/21/2024 Refill Pat [facility] [address] [place] [address] Shilpa Miller, MARIA C [address] [place] [address] Type 2 diabetes mellitus with diabetic polyneuropathy, with long-term current use of insulin ([facility]) Social History Tobacco Use Types Packs/Day Years [...] VM I am going to send a [employer] message. documented in this encounter Plan of Treatment Not on file documented as of this encounter Visit Diagnoses Diagnosis Type 2 diabetes mellitus with diabetic polyneuropathy, with long-term current use of insulin (HCC) documented in this encounter Additional Health Concerns Assessment Noted Time PHQ-9 Depression Total Score: 20 024 7:38 AM EDT documented as of this encounter Care Teams Poultry Husbandman Relationship Specialty Start Date End Date Francheska Tucker NP PCP - General Family Medicine 10/25/23 11/01/24 Sharmila Azar DO [address] [place] [address] PCP - General Family Medicine 11/02/24 06/17/25 Inactive/Transferred PCP - General 06/18/25 06/18/25 Inactive/Transferred PCP - General 08/12/25 Lei Thacker Health Navigator 09/17/24 documented as of this encounter
--- OUTSIDE RECORDS SUMMARY | 2025-10-23 14:27 | XMS_ITS | Encounter Summary ---
Author Organization [employer] Address [address] [place] [address] 7 [place] [address] Care Team Providers Care Circular Stuffer Name Role Phone Francheska Tucker NP Primary Care Provider UnavailLei Paulson Unavailable Sharmila Collins DO Primary Care Provider [phone] Inactive/Transferred Primary Care Provider Unava ilable Inactive/Transferred Primary Care Provider Unava ilable Reason for Visit * Reason Comments Med Change Request Encounter Details Date Type Department Care Team (Late st Contact Info) Description 05/12/2024 Oneyda Stewart [facility] [address] [place] [address] Shilpa Miller, MARIA C [address] [place] [address] Psychophysiological insomnia Social History Tobacco Use Types [...] documented as of this encounter Care Teams Circular Stuffer Relationship Specialty Start Date End Date Francheska Tucker NP PCP - General Family Medicine 10/25/23 11/01/24 Sharmila Azar DO [address] [place] [address] PCP - General Family Medicine 11/02/24 06/17/25 Inactive/Transferred PCP - General 06/18/25 06/18/25 Inactive/Transferred PCP - General 08/12/25 Lei Thacker Health Navigator 09/17/24 documented as of this encounter
--- OUTSIDE RECORDS SUMMARY | 2025-10-23 14:27 | XMS_ITS | Encounter Summary ---
Author Organization [employer] Address [address] [facility] 7 [place] [address] Care Team Providers Care Log Roller Name Role Phone Lei Thacker Unavailable Unavailable Sharmila Azar DO Primary Care Provider [phone] Inactive/Transferred Primary Care Provider Unava ilable Inactive/Transferred Primary Care Provider Unava ilable Reason for Visit * Reason Onset Date Comments Med Refill 12/11/2024 Encounter Details Date Type Department Care Team (Late st Contact Info) Description 12/11/2024 Refill [place] [facility] [address] [place] [address] Sharmila Azar DO [address] [place] [address] Anxiety; PTSD (post-traumatic stress disorder) Social History [...] documented as of this encounter Care Teams Log Roller Relationship Specialty Start Date End Date Sharmila Azar DO [address] [place] [address] PCP - General Family Medicine 11/02/24 06/17/25 Inactive/Transferred PCP - General 06/18/25 06/18/25 Inactive/Transferred PCP - General 08/12/25 Lei Thacker Health Navigator 09/17/24 documented as of this encounter
--- OUTSIDE RECORDS SUMMARY | 2025-10-23 14:27 | XMS_ITS | Patient Health Record ---
Author Organization [facility] Address [address] [facility] [address] [place] [address] Care Team Providers Care Monitoring Specialist Name Role Phone Laisha Castañeda Unavailable [phone] Reason For Referral No Information Medications Medication SIG (Take, Route, Frequency, Duration) Notes Start Date End Date Status Viibryd 40MG ORAL; Duration: - [facility] 04/28/2014 Active Vitamin D3 1000 IU ORAL daily; Duration: - [facility] 2013 Active Aspirin EC 81MG 1 ORAL daily; Durati on: - [facility] 04/28/2014 Active Nebulizer ORAL; Duration: - [facility] 04/28/2014 Active oxyCODONE HCl 5MG ORAL; Duration: - [facility] 04/28/2014 Active Pravastatin Sodium 20MG 1 ORAL daily; Du ration: - [facility] 04/28/2014 Active Singulair 10MG ORAL; Duration: - [facility] 04/28/2014 Active Combivent 103-18 2 INHALE four times daily; Duration: - [facility] 04/28/2014 Active KlonoPIN 0.5MG ORAL four times shannon y; Duration: [facility] 04/28/2014 Active Levothyroxine Sodium 125MCG 1 ORAL daily ; Duration: - [facility] 04/28/2014 Active metFORMIN HCl ER 500MG ORAL; Duration: - [facility] 04/28/20 14 Active Problems Problem Type SNOMED Code ICD Code Onset Dates Problem Status W/U Status Risk Notes Problem Hypothyroidism (32929435) Unspecified hypothyroidism (244.9) Active confirmed Problem Type II diabetes mellitus without complication (796764144) Diabetes mellitus without mention of complication, type II or unspecified type, not stated as uncontrolled (250.00) Active confirmed Problem Pure hypercholesterolemia (884731707) Pure hypercholesterolemia (272.0) Active confirmed Problem Morbid obesity (273725906) Morbid obesity (278.01) Active confirmed Problem Schizoaffective disorder (18687300) Schizoaffective disorder, unspecified (295.70) Active confirmed Problem Panic disorder with agoraphobia (17932670) Agoraphobia with panic disorder (300.21) Active confirmed Problem Obsessive-compulsive disorder (316116998) Obsessive-compulsive disorders (300.3) Active confirmed Problem Posttraumatic stress disorder (32249045) Posttraumatic stress disorder (309.81) Active confirmed Problem Attention deficit hyperactivity disorder (977354272) 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) Active confirmed Problem Migraine (disorder) (73500249) Migraine, unspecified without mention of intractable migraine without mention of status migrainosus (346.90) Active confirmed Problem Asthma (disorder) (522702753) Asthma, unspecified, unspecified status (493.90) Active confirmed Problem Sleep apnea (49896775) Unspecified sleep apnea (780.57) Active confirmed Problem Hypertension (35004209) Hypertension (401.9) Active confirmed Plan Of Treatment No Information Insurance Providers Payer Name Payer Address Payer Phone Subscriber Number Group Number Insured Name Patient Relationship to Insured Coverage Start Date Coverage End Date MEDICARE [address] [place] [id number] [phone] [id number] SEBASTIÁN GARCIA Self - patient is the [...]
--- OUTSIDE RECORDS SUMMARY | 2025-10-23 14:27 | XMS_ITS | Encounter Summary ---
Author Organization [employer] Address [address] [facility] 7 [place] [address] Care Team Providers Care Tool Design Draftsperson Name Role Phone Lei Thacker Unavailable Unavailable Sharmila Azar DO Primary Care Provider [phone] Inactive/Transferred Primary Care Provider Unava ilable Inactive/Transferred Primary Care Provider Unava ilable Reason for Visit * Reason Comments Med Change Request Encounter Details Date Type Department Care Team (Late st Contact Info) Description 01/26/2025 Oneyda Stewart [facility] [address] [place] [address] Sharmila Azar DO [address] [place] [address] Type 2 diabetes mellitus with diabetic polyneuropathy, with long-term current use of insulin ([facility]) Social History Tobacco Use [...] documented as of this encounter Care Teams Tool Design Draftsperson Relationship Specialty Start Date End Date Sharmila Azar DO [address] [place] [address] PCP - General Family Medicine 11/02/24 06/17/25 Inactive/Transferred PCP - General 06/18/25 06/18/25 Inactive/Transferred PCP - General 08/12/25 Lei Thacker Health Navigator 09/17/24 documented as of this encounter
--- OUTSIDE RECORDS SUMMARY | 2025-10-23 14:27 | XMS_ITS | Clinical Summary ---
Author Organization [employer] Address [address] [facility] 7t [place] [address] Care Team Providers Care Hob Machine Operator Name Role Phone Lei Thacker Unavailable Unavailable Inactive/Transferred Primary Care Provider Unava ilable Allergies Active Allergy Reactions Criticality Noted Date Comments [place] Oil Hives,Itching,Rash,S hortness of breath,Swelling,Whee zing High 11/05/1980 Other Reaction(s): Anaphylaxis Amoxicillin 10/11/2022 Other reaction(s): Unknown Aspirin 10/11/2022 Other reaction(s): sensitivity Azithromycin Rash Low 10/11/2022 Black [place] Flavoring Agent (Non-Screening) Hives,Itching,Shortn ess of breath,Swelling,Whee [...] polyneuropathy, with long-term current use of insulin ([facility]) Use as directed to test blood sugars 3 times a day 100 strip 12 12/09/19 25 Active levalbuterol (Xopenex) 45 MCG/ACT inhalerIndications :Mild intermittent asthma without complication INHALE 2 PUFFS EVERY 4 HOURS IF NEEDED FOR WHEEZING. 15 g 12/25/19 25 Active nystatin (Mycostatin) 154934 UNIT/GM powderIndications: Soo infection of flexural skin Apply topically 2 times daily. 60 g 1 01/01/20 25 026 Active losartan (Cozaar) 100 MG tabletIndications: Essential (primary) hypertension TAKE 1 TABLET (100 MG) BY MOUTH ONCE PER DAY. 90 tablet 3 02/03/20 25 Active Basaglar KwikPen 100 UNIT/ML penIndications:Typ e 2 diabetes mellitus with diabetic polyneuropathy, with long-term current use of insulin ([facility]) Inject 82 Units under the skin at [...] 03/09/20 25 Active Lancets (OneTouch Delica Plus [id number]) miscIndications:Ty pe 2 diabetes mellitus with diabetic polyneuropathy, with long-term current use of insulin ([facility]) CHECK GLUCOSE 3 TIMES A DAY 100 [...] pe 2 diabetes mellitus with diabetic polyneuropathy ([facility]) INJECT 1 EACH UNDER THE SKIN 4 TIMES DAILY. 100 each 3 05/18/20 25 Active insulin aspart FlexPen (NovoLOG) 100 UNIT/ML penIndications:Typ e 2 diabetes mellitus with diabetic polyneuropathy, with long-term current use of insulin ([facility]) Inject 8-10 Units under the skin before breakfast, before lunch, and before evening meal. 30 mL 3 05/29/20 25 Active cholecalciferol (Vitamin D3) 25 MCG (1000 UT) tablet TAKE 1 TABLET (25 MCG) BY MOUTH IN THE MORNING 90 tablet 3 07/20/20 25 Active Active Problems Problem Noted Date Diagnosed Date Diabetic polyneuropathy carlos a lnua with type 2 diabetes mellitus 10/01/2024 Overview [...] with Dom Carter at [facility] in [place] for medication. Sees Forrest at [facility] for therapy weekly on phone. Feeling symptoms [...] ARB and STATIN. EYE: Dr. Segura in [place] DENTIST: Has false teeth. FBS 60-100. Will [...] pain. Will refer to weight management. Completed ECMO SPECIALIST paperwork for Ismael. Assessment & Plan (05/25/2023 [...] Mother vladimir hawk Hypertension Mother vladimir hawk [place] Mother vladimir [...] with long-term current use of insulin ([facility]) BI MAMMOGRAM SCREENING TOMOSYNTHESIS BILATERAL Routine 04/25/2025 1:53 PM EDT ALBUMIN/CREATININE RATIO, RANDOM URINE Routine 01/01/2025 12:00 AM EST Type 2 diabetes mellitus with diabetic polyneuropathy, with long-term current use of insulin ([facility]) DIABETES EYE EXAM Routine 05/28/2024 5:27 PM [...] specimen / Unknown 06/22/2025 2:22 PM EDT [facility] POINT OF CARE TEST ENTER/EDIT ORDERABLES Final Result * BI Mammogram Screening Tomosynthesis Bilateral (04/25/2025 1:53 PM EDT) Anatomical Region Laterality Modality Breast Bilateral Mammography 04/25/2025 1:53 PM EDT Narrative 04/27/2025 4:28 PM EDT PROCEDURE: MM Digital Mammo Screening INDICATION: Screening for breast cancer. No known palpable abnormalities. COMPARISON: [facility] dating back to 01/14/2013. TECHNIQUE: Full-field [...] (Negative) Lay letter mailed to patient WSN: [id number] Ordering Physician: Sharmila Azar Dictated By: Kayleigh Hall MD, I Dictated Date/Time: 04/27/25 4:25 pm Reviewed By: Kayleigh Hall MD, I Signed By: Kayleigh Hall MD, I Signed Date/Time: 04/27/25 4:25 pm Transcribed By: CSB Sap Security Consultant Date/Time: 04/27/25 4:22 pm Birads: Procedure Note Donotuseinterpreter, Image - 04/27/2025 PROCEDURE: MM Digital Mammo Screening INDICATION: Screening for breast cancer. No known palpableabnormalities. COMPARISON: [facility] dating back to 01/14/2013. TECHNIQUE: Full-field [...] (Negative) Lay letter mailed to patient WSN: [id number] Ordering Physician: Sharmila Azar Dictated By: Kayleigh Hall MD, I Dictated Date/Time: 04/27/25 4:25 pm Reviewed By: Kayleigh Hall MD, I Signed By: Kayleigh Hall MD, I Signed Date/Time: 04/27/25 4:25 pm Transcribed By: CSB [employer]ap Security Consultant Date/Time: 04/27/25 4:22 pm Birads: [facility] IMG BI PROCEDURES Final Result [...] AM EST Performed at: 01 - [facility] [address] [id number] Offal Worker: Megan Curry MD, Phone: [phone] [facility] LAB URINE ORDERABLES Final Res ult [facility] 1 * Diabetes Eye Exam (05/28/2024 5:27 PM EDT) Historical Provider HEALTH MAINTENANCE Final Result * Lipid panel (12/11/2023 12:51 PM EST) Cholesterol, Total 142 (<200) MG/DL [facility] Triglyceride (mg/dL) in Serum/Plasma 89 (<150) MG/DL [facility] HDL Cholesterol 67 (>39) MG/DL [facility] LDL Cholesterol, Calculated 57 (0-130) MG/DL [facility] Non HDL Chol. (LDL+VLDL) 75 (<160) MG/DL [facility] Comment: Testing performed or reported by [facility], a Service of [facility], [address] [place] [address] Rojas Garza MD, Shovel Mechanic [facility]# [id number] Blood Venous blood specimen / Unknown 12/11/2023 12:51 PM EST 12/11/2023 12:52 PM EST Francheska Tucker DIRECTOR CONSUMER LAB BLOOD ORDERABLES Final Resul t Performing Organization Address [facility] de Phone Number [facility] [address] [place] [address] * Pap Smear (07/17/2023 12:00 AM EDT) Swab Historical Provider LAB CYTOLOGY ORDERABLES F inal Result Performing Organization Address [facility] de Phone Number [facility] [address] [place] [address] * Hm Colonoscopy (12/30/2020) Colonoscopy repeat in 10 yeasr Historical Provider HEALTH MAINTENANCE Final Result * -Hepatitis C Antibody Test (12/14/2020 7:58 AM EST) ANTI-HEPATITIS C NEGATIVE (NEG) [facility] Comment: Reference range: Negative This test was performed on the [employer] Ramp immunoassay system. 12/14/2020 7:58 AM EST Shilpa Miller SURVEY DIRECTOR HISTORICAL/NON ORDERABLE LABS Final Result Performing Organization Address [facility] [address] * -HIV AB-AG 4TH GENERATION (12/14/2020 7:58 AM EST) RESULT 4TH GEN HIV AB-AG NEGATIVE (NEG) [facility] Comment: Negative for antibodies to HIV 1 and HIV 2 and P24 antigen. Reference range: Negative Additional note: Written patient authorization is required for each separate release of this test result. This test was performed on the [employer] Attendant Ramp immunoassay system. 12/14/2020 7:58 AM EST Shilpa Miller SURVEY DIRECTOR LAB BLOOD ORDERABLES Final Re sult Performing Organization Address [facility] Co de Phone Number [facility] [address] from Last 3 Months or Most Recently Relevant to Health Maintenance Insurance MEDICARE Member Subscriber Plan / Payer (Ef fective 2022-Present) Name:Qiana Doughertyberly Ricardo Member ID:[id number] Relation to Subscriber:Self Name:Elyssa Dougherty Subscriber ID:[id number] Payer ID:STATE Group ID:Not on file Type:Medicare Address: [place] [employer] [facility] [address] [address] [facility] Advance Directives Documents on File Type Date Recorded Patient Protection Manager Expl anation HealthCare Proxy 10/24/2023 12:48 PM HCP Care Teams Hob Machine Operator Relationship Specialty Start Date End Date Inactive/Transferred PCP - General 08/12/25 Lei Thacker Health Navigator 09/17/24
--- OUTSIDE RECORDS SUMMARY | 2025-10-23 14:28 | XMS_ITS | Encounter Summary ---
Author Organization [employer] Address [address] [place] [address] 7 [place] [address] Care Team Providers Care Entry Level Account Manager Name Role Phone Shilpa Miller CNP Primary Care Provider [phone] Francheska Tucker NP Primary Care Provider UnavailLei Paulson Unavailable Unavailable Sharmila Azar DO Primary Care Provider [phone] Inactive/Transferred Primary Care Provider Unava ilable Inactive/Transferred Primary Care Provider Unava ilable Encounter Details Date Type Department Care Team (Late st Contact Info) Description 10/26/2022 Abstract Pat [facility] [address] [place] [address] Shilpa Miller CNP [address] [place] [address] Social History Tobacco Use Types Packs/Day Years [...] Benign Anatomical Region Laterality Modality Other Result [facility] Historical Provider HEALTH MAINTENANCE Final Result documented in this encounter Visit Diagnoses Not on filedocumented in this encounter Care Teams Entry Level Account Manager Relationship Specialty Start Date End Date Shilpa Miller CNP [address] [place] [address] PCP - General Family Medicine 10/16/22 10/24/23 Francheska Tucker NP [address] [place] [address] PCP - General Family Medicine 10/25/23 11/01/24 Sharmila Azar DO [address] [place] [address] PCP - General Family Medicine 11/02/24 06/17/25 Inactive/Transferred PCP - General 06/18/25 06/18/25 Inactive/Transferred PCP - General 08/12/25 Lei Thacker Health Navigator 09/17/24 documented as of this encounter
--- OUTSIDE RECORDS SUMMARY | 2025-10-23 14:28 | XMS_ITS | Encounter Summary ---
Author Organization [employer] Address [address] [place] [address] 7t [place] [address] Care Team Providers Care Hydraulic Lift Driver Name Role Phone Francheska Tucker NP Primary Care Provider UnavailLei Paulson Unavailable Unavailable Sharmila Azar DO Primary Care Provider [phone] Inactive/Transferred Primary Care Provider Unava ilable Inactive/Transferred Primary Care Provider Unava ilable Reason for Visit * Reason Comments Med Change Request Encounter Details Date Type Department Care Team (Late st Contact Info) Description 01/16/2024 Oneyda Stewart [facility] [address] [place] [address] Amira Singh FNP Social History Tobacco Use [...] RX filled out yesterday and faxed to [facility] shellman documented in this encounter Plan of Treatment Not on file documented as of this encounter Visit Diagnoses Not on filedocumented in this encounter Care Teams Hydraulic Lift Driver Relationship Specialty Start Date End Date Francheska Tucker NP PCP - General Family Medicine 10/25/23 11/01/24 Sharmila Azar DO [address] [place] [address] PCP - General Family Medicine 11/02/24 06/17/25 Inactive/Transferred PCP - General 06/18/25 06/18/25 Inactive/Transferred PCP - General 08/12/25 Lei Thacker Health Navigator 09/17/24 documented as of this encounter
--- OUTSIDE RECORDS SUMMARY | 2025-10-23 14:28 | XMS_ITS | Encounter Summary ---
Author Organization [employer] Address [address] [place] [address] 7 [place] [address] Care Team Providers Care Stamp Presser Name Role Phone Lei Thacker Unavailable Unavailable DoeSharmila Primary Care Provider [phone] Inactive/Transferred Primary Care Provider Unava ilable Inactive/Transferred Primary Care Provider Unava ilable Reason for Visit * Reason Onset Date Comments Med Refill 11/05/2024 Encounter Details Date Type Department Care Team (Late st Contact Info) Description 11/05/2024 Refill Pat [facility] [address] [place] [address] Shilpa Miller, GLOBAL IMPLEMENTATION MANAGER [address] [place] [address] Type 2 diabetes mellitus with diabetic polyneuropathy [...] documented as of this encounter Care Teams Stamp Presser Relationship Specialty Start Date End Date Sharmila Azar DO [address] [place] [address] PCP - General Family Medicine 11/02/24 06/17/25 Inactive/Transferred PCP - General 06/18/25 06/18/25 Inactive/Transferred PCP - General 08/12/25 Lei Thacker Health Navigator 09/17/24 documented as of this encounter
--- OUTSIDE RECORDS SUMMARY | 2025-10-23 14:28 | XMS_ITS | Continuity of Care Document ---
Author Organization [facility], VITO Briscoe Clinical Address [address] [place] [address] Care Team Providers Care Corporate Secretary Name Role Phone LIANNA PANCHAL Primary Care [...] Address Organization Details Recorded Time No complaints [id number] Active Status : 'I'; Not Available [facility] 4 09:19:03 Problem Notes None recorded. Procedures Surgical History Date Name Laterality Status Provider Name and Address Organization Details Recorded Time 5 Knee Kenalog 40 1cc Injection, Bilateral completed Robert Conde PA-C [address], [place], [address], [facility] 10/20/2025 12:06:29 5 Knee Kenalog 40 1cc Injection, Bilateral completed Robert Conde PA-C [address], [place], [address], [facility] 07/15/2025 16:42:15 5 Knee Kenalog 40 1cc Injection, Bilateral completed Robert Elton, PA-C [address], [place], [address], [facility] 04/01/2025 07:56:50 5 Knee Kenalog 40 1cc Injection, Bilateral completed Robert Vegaa, PA-C [address], [place], [address], [facility] 12/31/2024 15:24:25 4 Knee Kenalog 40 1cc Injection, Bilateral completed Robert Elton, PA-C [address], [place], [address], [facility] 10/08/2024 13:43:12 4 Knee Kenalog 40 1cc Injection, Bilateral completed Robert Elton, PA-C [address], [place], [address], [facility] 07/09/2024 12:37:00 4 Knee Kenalog 40 1cc Injection, Bilateral completed Robert Elton, PA-C [address], [place], [address], [facility] 03/28/2024 08:24:20 Imaging Results None recorded. Procedure Notes None recorded. Medical Equipment None Reported. Allergies Allergen ID Allergen Name Allergen Category Reaction Reaction Severity Criticality Documentation Date Start Date Code Code System Note Provider Name and Address Organization Details Recorded Time 192715 Product containin g angiotens in-conver ting enzyme inhibitor (product) medicatio n Not available Not available Not available 03/27/2024 [address] [facility] 4 14:45:09 817792 Bactrim medicatio n Not available Not available Not available 03/27/2024 49[address] [facility] 14:45:49 417592 metformin medicatio n Not available Not available Not available 03/27/2024 [address] [facility] 14:46:00 386785 Substance with sulfonami de structure and antibacte rial mechanism of action (substanc e) medicatio n Not available Not available Not available 03/27/2024 43000 8003 SNOMED RODOLFO fernandes [facility] 4 14:46:16 267944 latex environme nt,medica tion Not available Not available Not available 03/27/2024 15795 91 RxNorm RODOLFO fernandes [facility] 4 14:46:24 939011 Lyrica medicatio n Not available Not available Not available 10/08/2024 07987 1 RxNorm DOMENIC ORANTESBEVERLY dena [facility] 4 14:50:46 417747 almond allergeni c extract food dyspnea hives itching rash swelling wheezing Not available Not available Not available Not available Not available Not available high 10/16/20251980 40285 7 RxNorm Other React ion(s ): Anaph ylaxi s Not Available [employer] - prod 5 09:56:51 171494 amoxicill in medicatio n Not available Not available Not available 10/16/20252021 723 RxNorm Other react ion(s ): Unkno wn Not Available [employer] - prod 5 09:56:51 863886 aluminum aspirin Not available Not available Not available Not available 10/16/20252021 611 RxNorm Other react ion(s ): sensi tivit y Not Available [employer] - prod 5 09:56:51 546350 azithromy gaagndeep medicatio n rash Not available low 10/16/20252021 45378 RxNorm Not Available [employer] - prod 5 09:56:51 634965 buspirone medicatio n anxiety dyspnea rash swelling wheezing Not available Not available Not available Not available Not available high 10/16/20252024 1827 RxNorm Not Available [employer] - prod 5 09:56:51 111466 clonidine medicatio n Not available Not available low 10/16/20252022 2599 RxNorm Low blood press ure, nause a, vomit ing Not Available [employer] - prod 5 09:56:51 708086 desvenlaf axine succinate medicatio n swelling Not available Not available 10/16/20252021 57242 3 RxNorm Whole body swell ing Not Available [employer] - prod 5 09:56:51 295847 furosemid e medicatio n rash wheezing Not available Not available low 10/16/20252021 4603 RxNorm Not Available [employer] - prod 5 09:56:51 610340 iodine medicatio n rash Not available low 10/16/20252021 5933 RxNorm Not Available [employer] - prod 5 09:56:51 350862 liragluti de medicatio n diarrhea hives nausea rash Not available Not available Not available Not available low 10/16/20252021 59257 8 RxNorm Other react ion(s ): Unkno wn Not Available [employer] - prod 5 09:56:51 924119 lisinopri l medicatio n Not available Not available Not available 10/16/20252021 33016 RxNorm Other react ion(s ): edema Not Available [employer] - prod 5 09:56:51 296602 pregabali n medicatio n itching swelling Not available Not available high 10/16/20252023 21024 2 RxNorm Not Available [employer] - prod 5 09:56:[address] medicatio n rash Not available low 10/16/20252021 27417 RxNorm Not Available [employer] - prod 5 09:56:51 976577 omalizuma b medicatio n anaphylax is Not available high 10/16/20252021 50081 9 RxNorm Not Available dain - External [employer] - prod 5 09:56:51 166493 penicilli n G Not available Not available Not available Not available 10/16/20252021 7980 RxNorm Other react ion(s ): Unkno wn Not Available dain - [employer] - prod 5 09:56:51 774963 pravastat in medicatio n rash Not available low 10/16/20252021 39669 RxNorm Not Available dain - [employer] - prod 5 09:56:51 864368 semagluti de medicatio n Not available Not available Not available 10/16/20252021 36997 02 RxNorm Other react ion(s ): N and V Not Available [employer] - prod 5 09:56:51 326570 spironola ctone medicatio n rash Not available low 10/16/20252021 9997 RxNorm Not Available [employer] - prod 5 09:56:51 823907 sulfameth oxazole / trimethop rim medicatio n anaphylax is Not available high 10/16/20252021 21713 RxNorm Not Available [employer] - prod 5 09:56:51 933096 sumatript an medicatio n Not available Not available Not available 10/16/20252021 14895 RxNorm Other react ion(s ): eleva hanny blood press ure Not Available [employer] - prod 5 09:56:51 293190 acetamino phen medicatio n hives Not available Not available 10/16/20252021 161 RxNorm Other react ion(s ): facia l swell ing Not Available [employer] - prod 5 09:56:51 933958 vortioxet ine hydrobrom bora medicatio n anxiety swelling Not available Not available low 10/16/20252024 71022 34 RxNorm Not Available dain - [employer] - prod 5 09:56:51 926591 ascorbic acid / cholecalc iferol / folic acid / niacin / riboflavi n / sodium fluoride / thiamine / vitamin A / vitamin B12 / vitamin B6 / vitamin E medicatio n Not available Not available Not available 10/16/2025 13135 81 RxNorm Not Available dain - [employer] - prod 5 09:56:52 464747 sulfadiaz ine medicatio n Not available Not available Not available 10/16/2025 24885 RxNorm Not Available dain - [employer] - prod 5 09:56:52 030933 aspirin medicatio n Not available Not available Not available 10/16/2025 1191 RxNorm Not Available dain - [employer] - prod 5 09:56:52 313485 Non-stero idal anti-infl ammatory agent (substanc e) medicatio n Not available Not available Not available 10/16/2025 66505 5008 SNOMED Not Available dain - [employer] - prod 5 09:56:52 964102 Iodinated contrast media (substanc e) medicatio n Not available Not available Not available 10/16/2025 87245 2004 SNOMED Not Available dain - [employer] - prod 5 09:56:52 648737 Victoza medicatio n diarrhea hives nausea Not available Not available Not available Not available 10/19/20252024 29131 3 RxNorm unrec ogniz ed react ion (text : Rash, code: 74424 5008) (from exter nal sourc e) Not Available dain - [employer] - prod 5 03:58:07 422884 Ozempic medicatio n diarrhea hives nausea Not available Not available Not available Not available 10/19/20252024 67020 07 RxNorm unrec ogniz ed react ion (text : Rash, code: 70293 5008) (from exter nal sourc e) Not Available dain - External Data [employer] - prod 5 03:58:07 283940 Lasix medicatio n dyspnea hives Not available Not available Not available 10/19/20252024 1 RxNorm unrec ogniz ed react ion (text : Rash, code: 59382 5008) (from exter nal [facility] e) Not Available [facility] External Data Service - prod 5 03:58:07 647060 Tylenol medicatio n Not available Not available Not available 10/19/2025202443 3 RxNorm Not Available dain - External Data [employer] - prod 5 03:58:07 776401 Singulair medicatio n Not available Not available Not available 10/19/20252024 80524 9 RxNorm Not Available [facility] External Data Service - prod 5 03:58:07 73314 Product containin g penicilli n (product) medicatio n Not available Not available Not available 01/07/20242010 54966 8001 SNOMED Aller gyRea ction : 'Skin React ion, Nause a/Vom iting /Diar gustavo' ; Not Available [facility] 4 15:13:20 11928 amoxicill in trihydrat e medicatio n Not available Not available Not available 01/07/20242010 80378 8 RxNorm Aller gyRea ction : 'Skin React ion'; Not Available [facility] 4 15:13:20 Medications Name Sig Start Date [...] 10/19/2025 157.48 cm DOMENIC GUILLEN [place] - [facility] 10/19/2025 15:42:06 Social History [...] Kidney/Bladder Problems N Anemia N Heart Attack (AK) N Cholesterol Y Diabetes Y Bleeding Disorder [...] ICD10 Code Diagnosis IMO Codes Diagnosis Note [id number] LEEANN Ribeiro [facility] [address] 10/19/2025 15:35:01 10/20/2025 12:07:08 Osteoarthritis of left knee joint [id number] 83761 M17.12 0125297 Osteoarthr itis of right knee joint [id number] 50966 M17.11 9924215 Health Concerns Section Related Observation LastModified by Organization Detai ls LastModified Time None Recorded Concern Status LastModified by Organization Details LastModified Time None Recorded Payers Encounter Date Sequence Insurance Name Policy Number Policy Palafox Covered Member ID Palafox Member ID Guarantor Name 10/19/2025 1 [place] [employer] Farhat [id number] Elyssa A Farhat 10/19/2025 2 [place] [employer] Elyssa A Horatio [id number] Notes Date Note Type Note Provider Name [...] pneumatic compression devices. Robert Conde PA-C [address], [place], [address], [facility] - [facility] 10/20/2025 12:07:06 OBGyn Episode No OBEpisode recorded.
--- OUTSIDE RECORDS SUMMARY | 2025-10-23 14:28 | XMS_ITS | Encounter Summary ---
Author Organization [employer] Address [address] [place] [address] [address] [place] [address] Care Team Providers Care Grain Grader Name Role Phone Shilpa Miller CNP Primary Care Provider [phone] Francheska Tucker NP Primary Care Provider UnavailLei Paulson Unavailable Unavailable Sharmila Azar DO Primary Care Provider [phone] Inactive/Transferred Primary Care Provider Unava ilable Inactive/Transferred Primary Care Provider Unava ilable Encounter Details Date Type Department Care Team (Late st Contact Info) Description 11/30/2022 Abstract Pat [facility] MEDICAL [address] [place] [address] Shilpa Miller CNP [address] [place] [address] Social History Tobacco Use Types Packs/Day Years [...] PM EST documented as of this encounter Plan of Treatment Not on file documented as of this encounter Visit Diagnoses Not on filedocumented in this encounter Care Teams Grain Grader Relationship Specialty Start Date End Date Shilpa Miller CNP [address] [place] [address] PCP - General Family Medicine 10/16/22 10/24/23 Francheska Tucker NP [address] [place] [address] PCP - General Family Medicine 10/25/23 11/01/24 Sharmila Azar DO [address] [place] [address] PCP - General Family Medicine 11/02/24 06/17/25 Inactive/Transferred PCP - General 06/18/25 06/18/25 Inactive/Transferred PCP - General 08/12/25 Lei Thacker Health Navigator 09/17/24 documented as of this encounter
--- OUTSIDE RECORDS SUMMARY | 2025-10-23 14:28 | XMS_ITS | Encounter Summary ---
Author Organization [employer] Address [address] [place] [address] Care Team Providers Care Computer Game Designer Name Role Phone Lei Thacker Unavailable Unavailable King Sharmila Primary Care Provider [phone] Inactive/Transferred Primary Care Provider Unava ilable Inactive/Transferred Primary Care Provider Unava ilable Encounter Details Date Type Department Care Team (Late st Contact Info) Description 11/21/[address] [facility] MEDICAL [address] [place] [address] Provider, MD Sharad Social History Tobacco Use [...] documented as of this encounter Care Teams Computer Game Designer Relationship Specialty Start Date End Date Sharmila Azar DO [address] [place] [address] PCP - General Family Medicine 11/02/24 06/17/25 Inactive/Transferred PCP - General 06/18/25 06/18/25 Inactive/Transferred PCP - General 08/12/25 Lei Thacker Health Navigator 09/17/24 documented as of this encounter
--- OUTSIDE RECORDS SUMMARY | 2025-10-23 14:28 | XMS_ITS | Encounter Summary ---
Author Organization [employer] Address [address] [place] [address] 7 [place] [address] Care Team Providers Care Foreign Language Interpreter Name Role Phone Shilpa Miller CNP Primary Care Provider [phone] Francheska Tucker NP Primary Care Provider UnavailLei Paulson Unavailable Unavailable Sharmila Azar DO Primary Care Provider [phone] Inactive/Transferred Primary Care Provider Unava ilable Inactive/Transferred Primary Care Provider Unava ilable Encounter Details Date Type Department Care Team (Late st Contact Info) Description 10/27/2022 Abstract Pat [facility] MEDICAL [address] [place] [address] Shilpa Miller CNP [address] [facility] [place] [address] Social History Tobacco Use Types Packs/Day Years [...] on filedocumented in this encounter Care Teams Foreign Language Interpreter Relationship Specialty Start Date End Date Shilpa Miller CNP [address] [facility] [place] [address] PCP - General Family Medicine 10/16/22 10/24/23 Francheska Tucker NP [address] [place] [address] PCP - General Family Medicine 10/25/23 11/01/24 Sharmila Azar DO [address] [place] [address] PCP - General Family Medicine 11/02/24 06/17/25 Inactive/Transferred PCP - General 06/18/25 06/18/25 Inactive/Transferred PCP - General 08/12/25 Lei Thacker Health Navigator 09/17/24 documented as of this encounter
--- OUTSIDE RECORDS SUMMARY | 2025-10-23 14:28 | XMS_ITS | Encounter Summary ---
Author Organization [employer] Address [address] [place] [address] [address] [place] [address] Care Team Providers Care Store Consultant Name Role Phone Shilpa Miller CNP Primary Care Provider [phone] Francheska Tucker NP Primary Care Provider UnavailLei Paulson Unavailable Unavailable Sharmila Azar DO Primary Care Provider [phone] Inactive/Transferred Primary Care Provider Unava ilable Inactive/Transferred Primary Care Provider Unava ilable Encounter Details Date Type Department Care Team (Late st Contact Info) Description 11/30/2022 Abstract Pat [facility] MEDICAL [address] [place] [address] Shilpa Miller CNP [address] [place] [address] Social History Tobacco Use Types Packs/Day Years [...] on filedocumented in this encounter Care Teams Store Consultant Relationship Specialty Start Date End Date Shilpa Miller CNP [address] [place] [address] PCP - General Family Medicine 10/16/22 10/24/23 Francheska Tucker NP [address] [place] [address] PCP - General Family Medicine 10/25/23 11/01/24 Sharmila Azar DO [address] [place] [address] PCP - General Family Medicine 11/02/24 06/17/25 Inactive/Transferred PCP - General 06/18/25 06/18/25 Inactive/Transferred PCP - General 08/12/25 Lei Thacker Health Navigator 09/17/24 documented as of this encounter
--- OUTSIDE RECORDS SUMMARY | 2025-10-23 14:28 | XMS_ITS | Data Portability ---
Author Organization [facility], [facility] Address [address] [place] [address] Care Team Providers Care Staple Fiber Washer Name Role Phone LIANNA PANCHAL Primary Care [...] Address Organization Details Recorded Time No complaints [id number] Active Status : 'I'; Not Available [facility] 4 09:19:03 Problem Notes None recorded. Procedures Surgical History Date Name Laterality Status Provider Name and Address Organization Details Recorded Time 5 Knee Kenalog 40 1cc Injection, Bilateral completed Robert Conde PA-C [address], [place], [address], [facility] 10/20/2025 12:06:29 5 Knee Kenalog 40 1cc Injection, Bilateral completed Robert Conde PA-C [address], [place], [address], [facility] 07/15/2025 16:42:15 5 Knee Kenalog 40 1cc Injection, Bilateral completed Robert Conde PA-C [address], [place], [address], [facility] 04/01/2025 07:56:50 5 Knee Kenalog 40 1cc Injection, Bilateral completed Robert Elton, PA-C [address], [place], [address], [facility] 12/31/2024 15:24:25 4 Knee Kenalog 40 1cc Injection, Bilateral completed Robert Elton, PA-C [address], [place], [address], [facility] 10/08/2024 13:43:12 4 Knee Kenalog 40 1cc Injection, Bilateral completed Robert Elton, PA-C [address], [place], [address], [facility] 07/09/2024 12:37:00 4 Knee Kenalog 40 1cc Injection, Bilateral completed Robertluigi Vegaa, PA-C [address], [place], [address], [facility] 03/28/2024 08:24:20 Imaging Results None recorded. Procedure Notes None recorded. Medical Equipment None Reported. Allergies Allergen ID Allergen Name Allergen Category Reaction Reaction Severity Criticality Documentation Date Start Date Code Code System Note Provider Name and Address Organization Details Recorded Time 070729 Product containin g angiotens in-conver ting enzyme inhibitor (product) medicatio n Not available Not available Not available 03/27/2024 89304 009 SNOMED RODOLFO J[facility], [facility] 14:45:09 516073 Bactrim medicatio n Not available Not available Not available 03/27/2024 36242 9 RxNorm RODOLFO JAMES [facility], [facility] 14:45:49 940111 metformin medicatio n Not available Not available Not available 03/27/2024 6809 RxNorm RODOLFO JAMES [facility], [facility] 14:46:00 687244 Substance with sulfonami de structure and antibacte rial mechanism of action (substanc e) medicatio n Not available Not available Not available 03/27/2024 04219 8003 SNOMED RODOLFO fernandes [place] [facility] 4 14:46:16 380018 latex environme nt,medica tion Not available Not available Not available 03/27/2024 08159 91 RxNorm RODOLFO fernandes [place] [facility] 4 14:46:24 978511 Lyrica medicatio n Not available Not available Not available 10/08/2024 68354 1 RxNorm DOMENIC MINDY den[place], [facility] 4 14:50:46 512835 almond allergeni c extract food dyspnea hives itching rash swelling wheezing Not available Not available Not available Not available Not available Not available high 10/16/20251980 83907 7 RxNorm Other React ion(s ): Anaph ylaxi s Not Available [employer] - prod 5 09:56:51 080547 amoxicill in medicatio n Not available Not available Not available 10/16/20252021 723 RxNorm Other react ion(s ): Unkno wn Not Available [employer] prod 5 09:56:51 340697 aluminum aspirin Not available Not available Not available Not available 10/16/20252021 611 RxNorm Other react ion(s ): sensi tivit y Not Available [employer] - prod 5 09:56:51 826226 azithromy gagandeep medicatio n rash Not available low 10/16/20252021 93058 RxNorm Not Available [employer] - prod 5 09:56:51 678706 buspirone medicatio n anxiety dyspnea rash swelling wheezing Not available Not available Not available Not available Not available high 10/16/20252024 1827 RxNorm Not Available [employer] - prod 5 09:56:51 468805 clonidine medicatio n Not available Not available low 10/16/20252022 2599 RxNorm Low blood press ure, nause a, vomit ing Not Available [employer] - prod 5 09:56:51 348879 desvenlaf axine succinate medicatio n swelling Not available Not available 10/16/20252021 56724 3 RxNorm Whole body swell ing Not Available [employer] - prod 5 09:56:51 304170 furosemid e medicatio n rash wheezing Not available Not available low 10/16/20252021 4603 RxNorm Not Available [employer] - prod 5 09:56:51 391732 iodine medicatio n rash Not available low 10/16/20252021 5933 RxNorm Not Available [employer] - prod 5 09:56:51 176092 liragluti de medicatio n diarrhea hives nausea rash Not available Not available Not available Not available low 10/16/20252021 44579 8 RxNorm Other react ion(s ): Unkno wn Not Available [employer] - prod 5 09:56:51 397189 lisinopri l medicatio n Not available Not available Not available 10/16/20252021 99116 RxNorm Other react ion(s ): edema Not Available [employer] - prod 5 09:56:51 720919 pregabali n medicatio n itching swelling Not available Not available high 10/16/20252023 59767 2 RxNorm Not Available [employer] - prod 5 09:56:[address] medicatio n rash Not available low 10/16/20252021 21983 RxNorm Not Available [employer] - prod 5 09:56:51 994484 omalizuma b medicatio n anaphylax is Not available high 10/16/20252021 35250 9 RxNorm Not Available [employer]ain - [employer] - prod 5 09:56:51 748784 penicilli n G Not available Not available Not available Not available 10/16/20252021 7980 RxNorm Other react ion(s ): Unkno wn Not Available dain - [employer] - prod 5 09:56:51 827594 pravastat in medicatio n rash Not available low 10/16/20252021 22705 RxNorm Not Available dain - [employer] - prod 5 09:56:51 451376 semagluti de medicatio n Not available Not available Not available 10/16/20252021 16419 02 RxNorm Other react ion(s ): N and V Not Available [employer] - prod 5 09:56:51 063025 spironola ctone medicatio n rash Not available low 10/16/20252021 9997 RxNorm Not Available [employer] - prod 5 09:56:51 181128 sulfameth oxazole / trimethop rim medicatio n anaphylax is Not available high 10/16/20252021 48859 RxNorm Not Available [employer] - prod 5 09:56:51 576607 sumatript an medicatio n Not available Not available Not available 10/16/20252021 66132 RxNorm Other react ion(s ): eleva hanny blood press ure Not Available [employer] - prod 5 09:56:51 367824 acetamino phen medicatio n hives Not available Not available 10/16/20252021 161 RxNorm Other react ion(s ): facia l swell ing Not Available [employer] - prod 5 09:56:51 882958 vortioxet ine hydrobrom bora medicatio n anxiety swelling Not available Not available low 10/16/20252024 65105 34 RxNorm Not Available dain - [employer] - prod 5 09:56:51 512561 ascorbic acid / cholecalc iferol / folic acid / niacin / riboflavi n / sodium fluoride / thiamine / vitamin A / vitamin B12 / vitamin B6 / vitamin E medicatio n Not available Not available Not available 10/16/2025 96149 81 RxNorm Not Available dain - [employer] - prod 5 09:56:52 575437 sulfadiaz ine medicatio n Not available Not available Not available 10/16/2025 84737 RxNorm Not Available [employer] - [employer] - prod 5 09:56:52 890965 aspirin medicatio n Not available Not available Not available 10/16/2025 1191 RxNorm Not Available [employer]ain - [employer] - prod 5 09:56:52 065968 Non-stero idal anti-infl ammatory agent (substanc e) medicatio n Not available Not available Not available 10/16/2025 32454 5008 SNOMED Not Available [employer] - [employer] - prod 5 09:56:52 455024 Iodinated contrast media (substanc e) medicatio n Not available Not available Not available 10/16/2025 62180 2004 SNOMED Not Available dain - [employer] - prod 5 09:56:52 946208 Victoza medicatio n diarrhea hives nausea Not available Not available Not available Not available 10/19/20252024 12341 3 RxNorm unrec ogniz ed react ion (text : Rash, code: 97786 5008) (from exter nal sourc e) Not Available dain - [employer] - prod 5 03:58:07 788303 Ozempic medicatio n diarrhea hives nausea Not available Not available Not available Not available 10/19/20252024 76988 07 RxNorm unrec ogniz ed react ion (text : Rash, code: 88649 5008) (from exter nal sourc e) Not Available dain - [employer] - prod 5 03:58:07 274365 Lasix medicatio n dyspnea hives Not available Not available Not available 10/19/20252024 1 RxNorm unrec ogniz ed react ion (text : Rash, code: 23940 5008) (from exter nal [facility] e) Not Available [facility] [employer] - prod 5 03:58:07 874506 Tylenol medicatio n Not available Not available Not available 10/19/2025202443 3 RxNorm Not Available [facility] [employer] - prod 5 03:58:07 187069 Singulair medicatio n Not available Not available Not available 10/19/20252024 55156 9 RxNorm Not Available [facility] [employer] - prod 5 03:58:07 28205 Product containin g penicilli n (product) medicatio n Not available Not available Not available 01/07/20242010 58681 8001 SNOMED Aller gyRea ction : 'Skin React ion, Nause a/Vom iting /Diar gustavo' ; Not Available [facility] 4 15:13:20 14894 amoxicill in trihydrat e medicatio n Not available Not available Not available 01/07/20242010 41650 8 RxNorm Aller gyRea ction : 'Skin React ion'; Not Available [facility] 4 15:13:20 Medications Name Sig Start Date [...] Details Last Updated DateTime 12/31/2024 157.48 cm [facility] 12/31/2024 14:28:54 Date Recorded Body height Provider Name an d Address Organization Details Last Updated DateTime 04/01/2025 157.48 cm [facility] 04/01/2025 15:30:39 Date Recorded Body height Provider Name an d Address Organization Details Last Updated DateTime 07/15/2025 157.48 cm [facility] 07/15/2025 14:55:05 Date Recorded Body height Provider Name an d Address Organization Details Last Updated DateTime 10/08/2024 157.48 cm [facility] 10/08/2024 14:49:10 Date Recorded Body height Provider Name an d Address Organization Details Last Updated DateTime 10/19/2025 157.48 cm [facility] 10/19/2025 15:42:06 Social History None recorded. Functional Status None recorded. Mental Status None recorded. Family History Nothing Reported. Medical History Condition Response Allergies/Hayfever N Coronary Artery Disease N Anxiety/Depression N Breathing or lung disorders Y Emphysema N Nerve Disorders N Thyroid Problems Y COPD N Pacemaker N Anemia N Kidney/Bladder Problems N Vascular Disease N Heart Trouble N Heart Attack ([place]) N Gastrointestinal Disease N Cholesterol Y Diabetes [...] ICD10 Code Diagnosis IMO Codes Diagnosis Note [id number] LEEANN Ribeiro [address] [place] [address] 03/27/2024 13:58:04 04/16/2024 13:21:33 Pain of right knee joint 3872668615 78485 M25.561 Osteoarthr itis of left knee joint 9495149133 70697 M17.12 [id number] LEEANN Ribeiro [address] [place] [address] 07/09/2024 14:07:17 07/30/2024 11:29:18 Osteoarthritis of left knee joint 6284170651 56806 M17.12 Pain of ri ght knee joint 5360418416 92294 M25.172 [id number] LEEANN Ribeiro [address] [place] [address] 10/08/2024 14:46:36 11/03/2024 13:40:49 Osteoarthritis of left knee joint 7638739407 97453 M17.12 7256505 Osteoarthr itis of right knee joint 1897993873 59462 M17.11 9683904 [id number] [place] [address] 12/31/2024 14:17:58 01/12/2025 12:14:57 Osteoarthritis of left knee joint 5769256015 17112 M17.12 1685507 Osteoarthr itis of right knee joint 8750264049 08533 M17.11 8425451 [id number] LEEANN Ribeiro Clinical [address] [place] [address] 04/01/2025 15:11:57 04/08/2025 14:00:33 Osteoarthritis of left knee joint 9586014494 81187 M17.12 3320148 Osteoarthr itis of right knee joint 7622879115 39164 M17.11 9758129 [id number] LEEANN R[facility] [address] [place] [address] 07/15/2025 14:51:53 07/23/2025 15:49:13 Osteoarthritis of left knee joint 2447628859 68617 M17.12 2412281 Osteoarthr itis of right knee joint 2658699207 42026 M17.11 0573887 [id number] LEEANN Ribeiro [facility] [address] [place] [address] 10/19/2025 15:35:01 10/20/2025 12:07:08 Osteoarthritis of left knee joint 7324631443 17925 M17.12 8986441 Osteoarthr itis of right knee joint 4784954846 45057 M17.11 [id number] Health Concerns Section Related Observation LastModified by Organization Detai ls LastModified Time None Recorded Concern Status LastModified by Organization Details LastModified Time None Recorded Advance Directives Directive None Recorded Payers Insurance Date Sequence Insurance Name Policy Number Policy Palafox Covered Member ID Palafox Member ID Guarantor Name 10/19/2025 1 [place] B[place] [employer] [place] [id number] Elyssa A Farhat 10/19/2025 2 [place] [facility] Elyssa A Farhat [id number] Elyssa A Farhat Notes Date Note Type [...] continued conservative treatment. Robert Conde PA-C [address] [facility] [address], [place], [address], [facility] 10/08/2024 15:02:32 12/31/2024 text/html [...] continued conservative treatment. Robert Conde PA-C [address] [facility] [address], [place], [address], [facility] - [facility] 12/31/2024 15:24:59 04/01/2025 text/html [...] continued conservative treatment. Robert Conde PA-C [address] [facility] [address], [place], [address], [place] - [facility] 04/01/2025 16:26:04 07/15/2025 text/html [...] pneumatic compression devices. Robert Conde PA-C [address] [facility] [address], [place], [address], [facility] - [facility] 07/15/2025 16:42:38 10/19/2025 text/html [...] pneumatic compression devices. Robert Conde PA-C [address] [facility] [address], [place], [address], [facility] - [facility] 10/20/2025 12:07:06 OBGyn Episode No OBEpisode recorded.
--- OUTSIDE RECORDS SUMMARY | 2025-10-23 14:28 | XMS_ITS | Encounter Summary ---
Author Organization [employer] Address [address] [facility] [address] [place] [address] Care Team Providers Care Industrial Spraypainter Name Role Phone Lei Thacker Unavailable Unavailable DoeSharmila Primary Care Provider [phone] Inactive/Transferred Primary Care Provider Unava ilable Inactive/Transferred Primary Care Provider Unava ilable Reason for Visit * Reason Comments Med Refill Encounter Details Date Type Department Care Team (Late st Contact Info) Description 11/09/2024 Refill [place] [facility] [address] [place] [address] Francheska Tucker NP Acquired hypothyroidism Social History [...] documented as of this encounter Care Teams Industrial Spraypainter Relationship Specialty Start Date End Date Sharmila Azar DO [address] [place] [address] PCP - General Family Medicine 11/02/24 06/17/25 Inactive/Transferred PCP - General 06/18/25 06/18/25 Inactive/Transferred PCP - General 08/12/25 Lei Thacker Health Navigator 09/17/24 documented as of this encounter
--- OUTSIDE RECORDS SUMMARY | 2025-10-23 14:28 | XMS_ITS | Encounter Summary ---
Author Organization [employer] Address [address] [place] [address] 7 [place] [address] Care Team Providers Care Sheet Tailer Name Role Phone Shilpa Miller MARIA C Primary Care Provider [phone] Francheska Tucker NP Primary Care Provider UnavailLei Paulson Unavailable Unavailable Sharmila Azar DO Primary Care Provider [phone] Inactive/Transferred Primary Care Provider Unava ilable Inactive/Transferred Primary Care Provider Unava ilable Encounter Details Date Type Department Care Team (Late st Contact Info) Description 12/01/2022 Orders Only [facility] [address] [place] [address] Avelina Fulton FNP Type 2 diabetes mellitus with diabetic polyneuropathy, with long-term current use of insulin ([facility]) (Primary Dx) Social History Tobacco Use [...] polyneuropathy, with long-term current use of insulin ([facility])- Primary documented in this encounter Care Teams Sheet Tailer Relationship Specialty Start Date End Date Shilpa Miller CNP [address] [place] [address] PCP - General Family Medicine 10/16/22 10/24/23 Francheska Tucker NP [address] [place] [address] PCP - General Family Medicine 10/25/23 11/01/24 Sharmila Azar DO [address] [place] [address] PCP - General Family Medicine 11/02/24 06/17/25 Inactive/Transferred PCP - General 06/18/25 06/18/25 Inactive/Transferred PCP - General 08/12/25 Lei Thacker Health Navigator 09/17/24 documented as of this encounter
[2025-10-23 17:03] LABS: Free T4 (Free Thyroxine) 2.10 ng/dL (0.71-1.85)
== END 2025-10-23 12:40 | disposition home or self-care (01) ==
LOC: HO.WFDLDS 12:39
PROVIDERS: Visit Provider Student in an Organized Health Care Education/Training Program
DX: E06.3 Autoimmune thyroiditis (principal)
CPT/HCPCS: 36415; 84439; 84443

== ENCOUNTER 2025-10-27 13:13 | Outpatient (AMB) | payer MEDICARE, MEDICAID, SELFPAY ==
--- NOTE | 2025-10-27 13:21 | A.OFFVIS_ITS ---
Vital Signs 3 10/27/25 13:33 Height 5 ft 2 in Weight 376 lb 15.847 oz BMI 68.9 BP 150/78 H Blood Pressure Location Rt brachial Position Sitting Pulse 93 Pulse Source Pulse Oximeter Pulse Oximetry (%) 97 Oxygen Delivery Method Room Air Intake Visit Reasons: Hypothyroidism, T2DM Intake Note: Patient presents today foe a follow-up on Type 2 Diabetes Mellitus Hypothyroidism: Thyroid Fucntion Test: Completed on 09/07/2025 Glucose data available (sensor/reader/meter): Yes / No Last Diabetic eye exam was on: 05/29/2025, [facility] Last Podiatry exam was on: 08/10/2025, [facility] Most recent HbA1c: 6.3%, 10/27/2025 Random Glucose: 101 mg/dL L Fundraising Consultant Required: No Accompanied by: Self / Same As Patient Allergies lamotrigine (From Lamictal) Allergy (Severe, Verified 10/27/25 13:41) Muscle Pain lithium Allergy (Severe, Verified 10/27/25 13:41) seizures omalizumab (Xolair) Allergy (Severe, Verified 10/27/25 13:41) anaphylaxis penicillin G Allergy (Severe, Verified 10/27/25 13:41) Anaphylaxis Sulfa (Sulfonamide Antibiotics) Allergy (Severe, Verified 10/27/25 13:41) anaphylaxis sulfamethoxazole (From Bactrim) Allergy (Severe, Verified 10/27/25 13:41) Anaphylaxis sumatriptan Allergy (Severe, Verified 10/27/25 13:41) Unknown trimethoprim (From Bactrim) Allergy (Severe, Verified 10/27/25 13:41) Anaphylaxis vortioxetine (From Trintellix) Allergy (Severe, Verified 10/27/25 13:41) serotin toxicity acetaminophen (From Tylenol) Allergy (Intermediate, Verified 10/27/25 13:41) Hives desvenlafaxine Allergy (Intermediate, Verified 10/27/25 13:41) Wheezing iodine Allergy (Intermediate, Verified 10/27/25 13:41) Rash ziprasidone Allergy (Intermediate, Verified 10/27/25 13:41) Seizure insulin aspart (From Novolog U-100 Insulin aspart) Allergy (Mild, Verified 10/27/25 13:41) Rash pediatric multivitamin no.130 (From Floriva Plus (with biotin)) Allergy (Mild, Verified 10/27/25 13:41) hives sodium fluoride (From Floriva Plus (with biotin)) Allergy (Mild, Verified 10/27/25 13:41) hives amoxicillin Allergy (Unknown, Verified 10/27/25 13:41) Unknown azithromycin (Zithromax) Allergy (Unknown, Verified 10/27/25 13:41) Unknown furosemide (Lasix) Allergy (Unknown, Verified 10/27/25 13:41) Unknown hydrochlorothiazide Allergy (Unknown, Verified 10/27/25 13:41) Unknown lisinopril Allergy (Unknown, Verified 10/27/25 13:41) Unknown metformin Allergy (Unknown, Verified 10/27/25 13:41) Unknown montelukast (Singulair) Allergy (Unknown, Verified 10/27/25 13:41) Unknown pravastatin Allergy (Unknown, Verified 10/27/25 13:41) Unknown spironolactone Allergy (Unknown, Verified 10/27/25 13:41) Unknown sulfacetamide Allergy (Unknown, Verified 10/27/25 13:41) Unknown gabapentin Allergy (Verified 10/27/25 13:41) night sweats liraglutide Adverse Reaction (Intermediate, Verified 10/27/25 13:41) Nausea and Vomiting semaglutide Adverse Reaction (Intermediate, Verified 10/27/25 13:41) Nausea and Vomiting zolair Allergy (Severe, Uncoded 10/27/25 13:41) Anaphylaxis JAYRO INHIBITORS Allergy (Unknown, Uncoded 10/27/25 13:41) Unknown LATEX Allergy (Unknown, Uncoded 10/27/25 13:41) Unknown NSAIDS Allergy (Unknown, Uncoded 10/27/25 13:41) Unknown SHELLFISH Allergy (Unknown, Uncoded 10/27/25 13:41) Unknown Sulfacet-R Allergy (Unknown, Uncoded 10/27/25 13:41) Unknown TREE NUTS Allergy (Unknown, Uncoded 10/27/25 13:41) Unknown Referred by: Primary Care Physician Marian Lomeli , [facility] HPI Comments Details: The patient is a 55-year-old female presenting with management of diabetes mellitus and thyroid dysfunction. The patient was diagnosed with diabetes mellitus in 1991 during . She has been on insulin therapy since 1992, with her diabetes being managed primarily by her primary care physician due to endocrinology not accepting her as a patient because her diabetes was considered too well controlled. Her current A1c is 7.1%, and she reports fluctuations in her blood glucose levels, particularly at night. The patient has a history of thyroid dysfunction, initially diagnosed in 1992, for which she has been on levothyroxine therapy. Her thyroid medication dosage has been adjusted multiple times, with recent changes causing her to experience symptoms of cold intolerance and fatigue when the dose was lowered to 200 micrograms. She reports feeling better at a dose of 237 micrograms, despite her TSH being slightly suppressed. The patient also reports a history of lymphedema and knee osteoarthritis, which have contributed to mobility issues and difficulty in weight management. She has lost 26 pounds since November without significant changes in her lifestyle, but continues to experience knee pain and swelling. She reports trying GLP ones in the past which caused skin and throat swelling. Allergy: Patient has extensive allergy history, she does not recall all of it, she has notes at home that she will provide when she comes back as she forgot to bring in today. ROS: Reports previous cold intolerance, fatigue, and weight loss of 26 pounds since November. Denies palpitations, diarrhea, or anxiety. Musculoskeletal: Reports knee pain and swelling. Denies recent trauma. Eye Dr.: May, DR Lipid: pending Podiatry: This year, has neuropathy, no treatment, monitoring. Interval history: She reports decreased appetite She reports having a lot of leg pain She was supposed to be taking Levothyroxine 225 mcg daily 6 days and 325 mcg in the 7th day. She was confused and after the 7th day continues to take 325 mcg daily, which explaines why her TSH was suppresed. CGM data: Interpretation: Mild postprandial hyperglyclemia and occacional early AM lows. Physical exam: General: Well appearing. NAD. Neck/Thyroid: Thyroid not palpable, no nodules. CV: RRR, no murmur. Chronic lymphedema. Resp:Lungs clear to auscultation bilaterally Abdomen: Soft, nontender. nondistended Extremities/Neuro: No weakness or tremor of outstretched hands Laboratory Tests 10/27/25 10/27/25 13:36 13:42 Glucose (Clinic) 101 Hgb A1c (Clinic) 6.3 H Laboratory Tests 08/04/25 10/23/25 12:30 12:41 TSH 0.01 L Free T4 2.10 H Urine Microalbumin < 5.0 PFSH Medical History Hx of seasonal allergies History of posttraumatic stress disorder (PTSD) Hx of mammogram (~04/2025) Torn meniscus Panic disorder Anxiety and depression Neuropathy Headache Incontinence GERD (gastroesophageal reflux disease) IBS (irritable bowel syndrome) Swelling Edema Osteoarthritis Arthritis Thyroid disorder Diabetes High cholesterol HTN (hypertension) Asthma Surgical History H/O arthroscopy of right knee Hx of colonoscopy (~2018) History of tonsillectomy Previous section Family History Mother Asthma HTN (hypertension) High cholesterol Diabetes Cardiovascular disease Thyroid disorder Mental health disorder Maternal Grandmother HTN (hypertension) High cholesterol Cardiovascular disease Father High cholesterol Cardiovascular disease Lung cancer Mental health disorder Paternal Grandfather No problems noted. Maternal Grandfather Cardiovascular disease Paternal Grandmother Leukemia Social History Housing: House Alcohol intake: never Patient Tobacco Use Status: Never used Tobacco e-Cigarette/Vaping Use: Never Used Second Hand Smoke Exposure: No Current occupational status: disabled Cognitive needs: No Hearing needs: Yes (left hearing aide) Vision needs: Yes (wear glasses) Physical Exam Vital Signs: Last Vital Signs Pulse 93 10/27/25 13:33 BP 150/78 H 10/27/25 13:33 Pulse Ox 97 10/27/25 13:33 Oxygen Delivery Method Room Air 10/27/25 13:33 BMI result Body Mass Index 68.9 Results AMB Hemoglobin A1c 2 AMB Hemoglobin A1c 6.3 % Last Edit by PJ Urrutia on 10/27/25 13:44 Results Reviewed Results Reviewed: Laboratory Last Values Glucose (Clinic) 101 mg/dL (60-115) 10/27/25 13:36 Hgb A1c (Clinic) 6.3 % (4.0-6.0) H 10/27/25 13:42 Assessment & Plan Assessment & Plan (1) BMI 60.0-69.9, adult: Code(s): Z68.44 - Body mass index [BMI] 60.0-69.9, adult Category: Medical Plan: * Acknowledge and reinforce recent weight loss success. * Discuss potential adjuncts for weight management (nutrition, physical therapy, pharmacotherapy if appropriate). * Address barriers to mobility (knee pain, lymphedema); consider referral to physical therapy and/or lymphedema clinic. * Continue to support efforts toward eventual eligibility for knee replacement. (2) Diabetes mellitus with complication: Code(s): E11.8 - Type 2 diabetes mellitus with unspecified complications Category: Medical Plan: Type 2 Diabetes Mellitus, Insulin-Dependent * Longstanding history, diagnosed in 1991 (initially during , likely pre-existing). * On insulin therapy since 1992. * Most recent A1c: 7.1%. * CGM data: 67% time in range, with some nocturnal hyperglycemia and occasional high readings. * Patient is actively engaged in self-management, brings in logs and lab results. Current BG at goal, A1c 6.3%. Will make some adjustments to improve postprandial hyperglycemia and to avoid early AM lows. Plan * Decrease Lantus to 52 units patient was not using the full ordered dose, but titrate cautiously to avoid hypoglycemia, especially with bedtime glucose near 100 mg/dL. * Will adjust insulin sliding scale as below * Reinforce use of CGM and encourage continued data sharing. * Provide close follow-up for insulin adjustments; patient instructed to call with any hypoglycemia or significant changes in glucose patterns. * Continue to monitor A1c and [id number]; goal >70% [id number]-[id number]. ISS Insulin Dose (units) ? 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 * Recent dose adjustments: previously on 225 mcg, increased to 237 mcg (reported symptomatic improvement?resolution of cold intolerance), then decreased to 200 mcg due to suppressed TSH. * Current symptoms: improved cold intolerance at higher dose, persistent constipation, stable weight loss (?26 lbs since November), no hyperthyroid symptoms (no palpitations, diarrhea, or anxiety beyond baseline). * TSH recently suppressed but not undetectable. Plan * Resume levothyroxine 225 mcg daily x6 days, 7th day 1 1/2 tablets * She confused the instructions given last time and was taking 325 mcg daily instead of the 7th day only * Recheck TSH, free T4, and free T3 in 6 weeks. * Power Cutting Machine Operator on proper administration: Take levothyroxine on an empty stomach, at least 1 hour before food/other meds; if meal contains calcium/iron, separate by 2?3 hours. * Monitor for symptoms of over- or under-replacement (palpitations, heat/cold intolerance, bowel changes, etc.). Plan 30 minutes spent reviewing previous records, labs, imaging, education and documenting in the chart Orders: Orders 2 TSH reflex Free T4 6 Weeks E06.3 - Autoimmune thyroiditis AMB Hemoglobin A1c Today E11.8 - Type 2 diabetes mellitus with unspecified complications Lipid Panel 6 Weeks E11.8 - Type 2 diabetes mellitus with unspecified complications Basic Metabolic Panel 6 Weeks E11.8 - Type 2 diabetes mellitus with unspecified complications Patient Instructions: Hypothyroidism Take Levothyroxine, scheduled as below Mondays: 225 mcg=1 tablet Tuesdays: 225 mcg=1 tablet Wednesdays: 225 mcg=1 tablet :225 mcg=1 tablet Fridays: 225 mcg=1 tablet Saturdays: 225 mcg=1 tablet Sundays: 325 mcg=1 1/2 tablets 200mcg + 1 tablet 25 mcg repeat blood work in 6 weks. 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
[2025-10-27 13:33] VITALS: BP 150/78; PULSE 93; O2SAT 97; BMI 68.9
[2025-10-27 13:40] LABS: Glucose, Whole Blood 101 mg/dL (60-115)
--- OUTSIDE RECORDS SUMMARY | 2025-10-27 14:22 | XMS_ITS | Encounter Summary ---
Author Organization [employer] Address [address] [facility] 7[address] [place] [address] Care Team Providers Care Manager Wireless Name Role Phone Lei Thacker Unavailable Unavailable Sharmila Azar Primary Care Provider [phone] Inactive/Transferred Primary Care Provider Unava ilable Inactive/Transferred Primary Care Provider Unava ilable Reason for Visit * Reason Onset Date Comments Med Refill 01/31/2025 Encounter Details Date Type Department Care Team (Late st Contact Info) Description 01/31/2025 Refill Pat [facility] MED[facility] [address] [place] [address] Francheska Tucker NP Essential (primary) hypertension Social [...] as of this encounter Care Teams Manager Wireless Relationship Specialty Start Date End Date Sharmila Azar DO [address] [place] [address] PCP - General Family Medicine 11/02/24 06/17/25 Inactive/Transferred PCP - General 06/18/25 06/18/25 Inactive/Transferred PCP - General 08/12/25 Lei Thacker Health Navigator 09/17/24 documented as of this encounter
--- OUTSIDE RECORDS SUMMARY | 2025-10-27 14:22 | XMS_ITS | Encounter Summary ---
Author Organization [employer] Address [address] [facility] [address] 7[address] [place] [address] Care Team Providers Care French Tutor Name Role Phone Francheska Tucker NP Primary Care Provider UnavailLei Paulson Unavailable Unavailable Sharmila Azar DO Primary Care Provider [phone] Inactive/Transferred Primary Care Provider Unava ilable Inactive/Transferred Primary Care Provider Unava ilable Encounter Details Date Type Department Care Team (Late st Contact Info) Description 12/19/[address] [facility] MEDICAL [address] [place] [address] Provider, MD Sharad Social History Tobacco Use [...] on filedocumented in this encounter Care Teams French Tutor Relationship Specialty Start Date End Date Francheska Tucker NP PCP - General Family Medicine 10/25/23 11/01/24 Sharmila Azar DO [address] [place] [id number] PCP - General Family Medicine 11/02/24 06/17/25 Inactive/Transferred PCP - General 06/18/25 06/18/25 Inactive/Transferred PCP - General 08/12/25 Lei Thacker Health Navigator 09/17/24 documented as of this encounter
--- OUTSIDE RECORDS SUMMARY | 2025-10-27 14:22 | XMS_ITS | Patient Health Record ---
Author Organization [employer] [facility] Address [address] [facility] [address] [place] [address] Care Team Providers Care Jig Fitter Name Role Phone Laisha Castañeda Unavailable [phone] Reason For Referral No Information Medications Medication SIG (Take, Route, Frequency, Duration) Notes Start Date End Date Status Viibryd 40MG ORAL; Duration: -3 [facility] 04/28/2014 Active Vitamin D3 1000 IU ORAL daily; Duration: - [facility] 2013 Active Aspirin EC 81MG 1 ORAL [...] 0.5MG ORAL four times shannon y; Duration: [facility] 04/28/2014 Active Levothyroxine Sodium 125MCG 1 ORAL daily ; Duration: - [facility] 04/28/2014 Active metFORMIN HCl ER 500MG ORAL; Duration: - [facility] 04/28/20 14 Active Problems Problem Type SNOMED Code ICD Code Onset Dates Problem Status W/U Status Risk Notes Problem Hypothyroidism (46433027) Unspecified hypothyroidism (244.9) Active confirmed Problem Type II diabetes mellitus without complication (332117035) Diabetes mellitus without mention of complication, type II or unspecified type, not stated as uncontrolled (250.00) Active confirmed Problem Pure hypercholesterolemia (922452118) Pure hypercholesterolemia (272.0) Active confirmed Problem Morbid obesity (807224932) Morbid obesity (278.01) Active confirmed Problem Schizoaffective disorder (69321753) Schizoaffective disorder, unspecified (295.70) Active confirmed Problem Panic disorder with agoraphobia (41101203) Agoraphobia with panic disorder (300.21) Active confirmed Problem Obsessive-compulsive disorder (721910774) Obsessive-compulsive disorders (300.3) Active confirmed Problem Posttraumatic stress disorder (98054283) Posttraumatic stress disorder (309.81) Active confirmed Problem Attention deficit hyperactivity disorder (391767402) 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) Active confirmed Problem Migraine (disorder) (57385112) Migraine, unspecified without mention of intractable migraine without mention of status migrainosus (346.90) Active confirmed Problem Asthma (disorder) (505113233) Asthma, unspecified, unspecified status (493.90) Active confirmed Problem Sleep apnea (15240038) Unspecified sleep apnea (780.57) Active confirmed Problem Hypertension (55197222) Hypertension (401.9) Active confirmed Plan Of Treatment No Information Insurance Providers Payer Name Payer Address Payer Phone Subscriber Number Group Number Insured Name Patient Relationship to Insured Coverage Start Date Coverage End Date MEDICARE [address] [place] [id number] SEBASTIÁN GARCIA Self - patient is the [...]
--- OUTSIDE RECORDS SUMMARY | 2025-10-27 14:22 | XMS_ITS | Encounter Summary ---
Author Organization [employer] Address [address] [facility] 7 [place] [address] Care Team Providers Care Keno Dealer Name Role Phone Francheska Tucker NP Primary Care Provider UnavailLei Paulson Unavailable Unavailable Sharmila Azar DO Primary Care Provider [phone] Inactive/Transferred Primary Care Provider Unava ilable Inactive/Transferred Primary Care Provider Unava ilable Reason for Visit * Reason Comments Med Change Request Encounter Details Date Type Department Care Team (Late st Contact Info) Description 05/26/2024 Refill aPt [facility] MED[facility] [address] [place] [phone] Francheska Tucker NP Type 2 diabetes mellitus with diabetic polyneuropathy, with long-term current use of insulin ([facility]) Social History Tobacco Use Types Packs/Day [...] the past 12 months, has t he [facility], gas, oil or water [employer] threatened to shut off services in your [...] documented as of this encounter Care Teams Keno Dealer Relationship Specialty Start Date End Date Francheska Tucker NP PCP - General Family Medicine 10/25/23 11/01/24 Sharmila Azar DO [address] [place] [address] PCP - General Family Medicine 11/02/24 06/17/25 Inactive/Transferred PCP - General 06/18/25 06/18/25 Inactive/Transferred PCP - General 08/12/25 Lei Thacker Health Navigator 09/17/24 documented as of this encounter
--- OUTSIDE RECORDS SUMMARY | 2025-10-27 14:22 | XMS_ITS | Encounter Summary ---
Author Organization [employer] Address [address] [place] [address] 7 [place] [address] Care Team Providers Care Biochemistry Professor Name Role Phone Shilpa Miller CNP Primary Care Provider [phone] Francheska Tucker NP Primary Care Provider UnavailLei Paulson Unavailable Unavailable Sharmila Azar DO Primary Care Provider [phone] Inactive/Transferred Primary Care Provider Unava ilable Inactive/Transferred Primary Care Provider Unava ilable Encounter Details Date Type Department Care Team (Late st Contact Info) Description 01/31/2023 Abstract Pat [facility] MED[facility] [address] [place] [address] Shilpa Miller CNP [address] [place] [address] Social History Tobacco Use Types Packs/Day Years [...] on filedocumented in this encounter Care Teams Biochemistry Professor Relationship Specialty Start Date End Date Shilpa Miller CNP [address] [place] [address] PCP - General Family Medicine 10/16/22 10/24/23 Francheska Tucker NP [address] [place] [address] PCP - General Family Medicine 10/25/23 11/01/24 Sharmila Azar DO [address] [place] [address] PCP - General Family Medicine 11/02/24 06/17/25 Inactive/Transferred PCP - General 06/18/25 06/18/25 Inactive/Transferred PCP - General 08/12/25 Lei Thacker Health Navigator 09/17/24 documented as of this encounter
--- OUTSIDE RECORDS SUMMARY | 2025-10-27 14:22 | XMS_ITS | Encounter Summary ---
Author Organization [employer] Address [address] [facility] [address]t [place] [address] Care Team Providers Care Cruise Agent Name Role Phone Francheska Tucker NP Primary Care Provider UnavailLei Paulson Unavailable Sharmila Collins DO Primary Care Provider [phone] Inactive/Transferred Primary Care Provider Unava ilable Inactive/Transferred Primary Care Provider Unava ilable Reason for Visit * Reason Onset Date Comments Med Refill 05/21/2024 Encounter Details Date Type Department Care Team (Late st Contact Info) Description 05/21/2024 Refill Pat [facility] MED[facility] [address] [place] [id number] Shilpa Miller, MARIA C [address] [place] [address] Type 2 diabetes mellitus with diabetic polyneuropathy, with long-term current use of insulin ([facility]) Social History Tobacco Use Types Packs/Day [...] VM I am going to send a Lingu[employer] message. documented in this encounter Plan of Treatment Not on file documented as of this encounter Visit Diagnoses Diagnosis Type 2 diabetes mellitus with diabetic polyneuropathy, with long-term current use of insulin (HCC) documented in this encounter Additional Health Concerns Assessment Noted Time PHQ-9 Depression Total Score: 20 024 7:38 AM EDT documented as of this encounter Care Teams Cruise Agent Relationship Specialty Start Date End Date Francheska Tucker NP PCP - General Family Medicine 10/25/23 11/01/24 Sharmila Azar DO [address] [place] [address] PCP - General Family Medicine 11/02/24 06/17/25 Inactive/Transferred PCP - General 06/18/25 06/18/25 Inactive/Transferred PCP - General 08/12/25 Lei Thacker Health Navigator 09/17/24 documented as of this encounter
--- OUTSIDE RECORDS SUMMARY | 2025-10-27 14:22 | XMS_ITS | Encounter Summary ---
Author Organization [employer] Address [address] [facility] [address] [place] [address] Care Team Providers Care Test Fixture Designer Name Role Phone Lei Thacker Unavailable Unavailable Sharmila Azar DO Primary Care Provider Inactive/Transferred Primary Care Provider Unava ilable Inactive/Transferred Primary Care Provider Unava ilable Reason for Visit * Reason Comments Med Change Request Encounter Details Date Type Department Care Team (Late st Contact Info) Description 01/26/2025 Oneyda Stewart [facility] MED[facility] [address] [place] [address] Sharmila Azar DO [address] [place] [address] Type 2 diabetes mellitus with diabetic polyneuropathy, with long-term current use of insulin ([facility]) Social History Tobacco Use Types [...] documented as of this encounter Care Teams Test Fixture Designer Relationship Specialty Start Date End Date Sharmila Azar DO [address] [place] [address] PCP - General Family Medicine 11/02/24 06/17/25 Inactive/Transferred PCP - General 06/18/25 06/18/25 Inactive/Transferred PCP - General 08/12/25 Lei Thacker Health Navigator 09/17/24 documented as of this encounter
--- OUTSIDE RECORDS SUMMARY | 2025-10-27 14:22 | XMS_ITS | Encounter Summary ---
Author Organization [employer] Address [address] [place] [address] 7 [place] [address] Care Team Providers Care Digital Service Engineer Name Role Phone Shilpa Miller CNP Primary Care Provider [phone] Francheska Tucker NP Primary Care Provider UnavailLei Paulson Unavailable Unavailable Sharmila Azar DO Primary Care Provider [phone] Inactive/Transferred Primary Care Provider Unava ilable Inactive/Transferred Primary Care Provider Unava ilable Reason for Visit * Reason Comments Med Refill Encounter Details Date Type Department Care Team (Late st Contact Info) Description 07/25/2023 Refill Pat [facility] MEDICAL [address] [place] [address] Shilpa Miller CNP [address] [place] [address] Hypothyroidism, unspecified Social History Tobacco Use Types [...] unspecified documented in this encounter Care Teams Digital Service Engineer Relationship Specialty Start Date End Date Shipla Miller CNP [address] [place] [address] PCP - General Family Medicine 10/16/22 10/24/23 Francheska Tucker NP [address] [place] [address] PCP - General Family Medicine 10/25/23 11/01/24 Sharmila Azar DO [address] [place] [address] PCP - General Family Medicine 11/02/24 06/17/25 Inactive/Transferred PCP - General 06/18/25 06/18/25 Inactive/Transferred PCP - General 08/12/25 Lei Thacker Health Navigator 09/17/24 documented as of this encounter
--- OUTSIDE RECORDS SUMMARY | 2025-10-27 14:22 | XMS_ITS | Encounter Summary ---
Author Organization [employer] Address 75 [facility] 7 [place] [address] Care Team Providers Care Chief Radiation Therapist Name Role Phone Lei Thacker Unavailable Unavailable Sharmila Azar DO Primary Care Provider [phone] Inactive/Transferred Primary Care Provider Unava ilable Inactive/Transferred Primary Care Provider Unava ilable Reason for Visit * Reason Comments Med Change Request Encounter Details Date Type Department Care Team (Late st Contact Info) Description 03/06/2025 Chasill Pat [facility] MEDICAL [address] [place] [address] Sharmila Azar DO [address] [place] [address] Type 2 diabetes mellitus with diabetic polyneuropathy, with long-term current use of insulin ([facility]) Social History Tobacco Use [...] as of this encounter Care Teams Chief Radiation Therapist Relationship Specialty Start Date End Date Sharmila Azar DO [address] [place] [address] PCP - General Family Medicine 11/02/24 06/17/25 Inactive/Transferred PCP - General 06/18/25 06/18/25 Inactive/Transferred PCP - General 08/12/25 Lei Thacker Health Navigator 09/17/24 documented as of this encounter
--- OUTSIDE RECORDS SUMMARY | 2025-10-27 14:22 | XMS_ITS | Encounter Summary ---
Author Organization [employer] Address 75 [facility] 7t [place] [address] Care Team Providers Care Pilot Safety Inspector Name Role Phone Francheska Tucker NP Primary Care Provider UnavailLei Paulson Unavailable Unavailable Sharmila Azar DO Primary Care Provider [phone] Inactive/Transferred Primary Care Provider Unava ilable Inactive/Transferred Primary Care Provider Unava ilable Encounter Details Date Type Department Care Team (Late st Contact Info) Description 07/04/2024 Orders Only [facility] MEDICAL [address] [place] [address] Francheska Tucker NP Social History Tobacco Use [...] documented as of this encounter Care Teams Pilot Safety Inspector Relationship Specialty Start Date End Date Francheska Tucker NP PCP - General Family Medicine 10/25/23 11/01/24 Sharmila Azar DO [address] [place] [address] PCP - General Family Medicine 11/02/24 06/17/25 Inactive/Transferred PCP - General 06/18/25 06/18/25 Inactive/Transferred PCP - General 08/12/25 Lei Thacker Health Navigator 09/17/24 documented as of this encounter
--- OUTSIDE RECORDS SUMMARY | 2025-10-27 14:22 | XMS_ITS | Encounter Summary ---
Author Organization [employer] Address [address] [place] [address] 7 [place] [address] Care Team Providers Care Senior Web Services Developer Name Role Phone Francheska Tucker NP Primary Care Provider UnavailLei Paulson Unavailable Sharmila Collins DO Primary Care Provider [phone] Inactive/Transferred Primary Care Provider Unava ilable Inactive/Transferred Primary Care Provider Unava ilable Reason for Visit * Reason Comments Med Change Request Encounter Details Date Type Department Care Team (Late st Contact Info) Description 05/12/2024 Oneyda Stewart [facility] MEDICAL [address] [place] [address] Shilpa Miller, MARI AC [address] [place] [address] Psychophysiological insomnia Social History Tobacco Use Types [...] as of this encounter Care Teams Senior Web Services Developer Relationship Specialty Start Date End Date Francheska Tucker NP PCP - General Family Medicine 10/25/23 11/01/24 Sharmila Azar DO [address] [place] [address] PCP - General Family Medicine 11/02/24 06/17/25 Inactive/Transferred PCP - General 06/18/25 06/18/25 Inactive/Transferred PCP - General 08/12/25 Lei Thacker Health Navigator 09/17/24 documented as of this encounter
--- OUTSIDE RECORDS SUMMARY | 2025-10-27 14:22 | XMS_ITS | Encounter Summary ---
Author Organization [employer] Address 75 [facility] 7 [place] [address] Care Team Providers Care Flamer After Lasting Name Role Phone Lei Thacker Unavailable Unavailable Sharmila Azar DO Primary Care Provider [phone] Inactive/Transferred Primary Care Provider Unava ilable Inactive/Transferred Primary Care Provider Unava ilable Reason for Visit * Reason Comments Med Refill Encounter Details Date Type Department Care Team (Late st Contact Info) Description 03/02/2025 Refill [facility] MEDICAL 73 [place] [address] Sharmila Azar DO [address] [place] [address] Anxiety; PTSD (post-traumatic stress disorder) Social History [...] documented as of this encounter Care Teams Flamer After Lasting Relationship Specialty Start Date End Date Sharmila Azar DO [address] [place] [address] PCP - General Family Medicine 11/02/24 06/17/25 Inactive/Transferred PCP - General 06/18/25 06/18/25 Inactive/Transferred PCP - General 08/12/25 Lei Thacker Health Navigator 09/17/24 documented as of this encounter
--- OUTSIDE RECORDS SUMMARY | 2025-10-27 14:22 | XMS_ITS | Encounter Summary ---
Author Organization [employer] Address 75 [facility] 7 [place] [address] Care Team Providers Care Screwhead Stoner And Polisher Name Role Phone Lei Thacker Unavailable Unavailable Sharmila Azar DO Primary Care Provider [phone] Inactive/Transferred Primary Care Provider Unava ilable Inactive/Transferred Primary Care Provider Unava ilable Reason for Visit * Reason Onset Date Comments Med Refill 12/24/2024 Encounter Details Date Type Department Care Team (Late st Contact Info) Description 12/24/2024 Refill [place] [facility] MEDICAL [address] [place] [address] Sharmila Azar DO [address] [place] [address] Anxiety; PTSD (post-traumatic stress disorder) Social History [...] documented as of this encounter Care Teams Screwhead Stoner And Polisher Relationship Specialty Start Date End Date Sharmila Azar DO [address] [place] [address] PCP - General Family Medicine 11/02/24 06/17/25 Inactive/Transferred PCP - General 06/18/25 06/18/25 Inactive/Transferred PCP - General 08/12/25 Lei Thacker Health Navigator 09/17/24 documented as of this encounter
--- OUTSIDE RECORDS SUMMARY | 2025-10-27 14:22 | XMS_ITS | Encounter Summary ---
Author Organization [employer] Address [address] [facility] [address] 7t [place] [address] Care Team Providers Care Air/Ocean Export Clerk Name Role Phone Francheska Tucker NP Primary Care Provider UnavailLei Paulson Unavailable Unavailable Sharmila Azar DO Primary Care Provider [phone] Inactive/Transferred Primary Care Provider Unava ilable Inactive/Transferred Primary Care Provider Unava ilable Encounter Details Date Type Department Care Team (Late st Contact Info) Description 06/25/2024 Orders Only [facility] MEDICAL [address] [place] [address] Provider, MD Sharad Social History Tobacco Use [...] documented as of this encounter Care Teams Air/Ocean Export Clerk Relationship Specialty Start Date End Date Francheska Tucker NP PCP - General Family Medicine 10/25/23 11/01/24 Sharmila Azar DO [address] [place] [address] PCP - General Family Medicine 11/02/24 06/17/25 Inactive/Transferred PCP - General 06/18/25 06/18/25 Inactive/Transferred PCP - General 08/12/25 Lei Thacker Health Navigator 09/17/24 documented as of this encounter
--- OUTSIDE RECORDS SUMMARY | 2025-10-27 14:22 | XMS_ITS | Encounter Summary ---
Author Organization [employer] Address [address] [place] [address] 7 [place] [address] Care Team Providers Care Rheologist Name Role Phone Francheska Tucker NP Primary Care Provider UnavailLei Paulson Unavailable Sharmila Collins DO Primary Care Provider Inactive/Transferred Primary Care Provider Unava ilable Inactive/Transferred Primary Care Provider Unava ilable Reason for Visit * Reason Comments Med Change Request Encounter Details Date Type Department Care Team (Late st Contact Info) Description 05/12/2024 Oneyda Stewart [facility] MEDICAL [address] [place] [address] Shilpa Miller, MARIA C [address] [place] [address] Psychophysiological insomnia Social History Tobacco Use Types [...] documented as of this encounter Care Teams Rheologist Relationship Specialty Start Date End Date Francheska Tucker NP PCP - General Family Medicine 10/25/23 11/01/24 Sharmila Azar DO [address] [place] [address] PCP - General Family Medicine 11/02/24 06/17/25 Inactive/Transferred PCP - General 06/18/25 06/18/25 Inactive/Transferred PCP - General 08/12/25 Lei Thacker Health Navigator 09/17/24 documented as of this encounter
--- OUTSIDE RECORDS SUMMARY | 2025-10-27 14:22 | XMS_ITS | Clinical Summary ---
Author Organization [employer] Address 75 [facility] 7t [place] [address] Care Team Providers Care Vp Marketing Name Role Phone Lei Thacker Unavailable Unavailable Inactive/Transferred Primary Care Provider Unava ilable Allergies Active Allergy Reactions Criticality Noted Date Comments Central Oil Hives,Itching,Rash,S hortness of breath,Swelling,Whee zing High 11/05/1980 Other Reaction(s): Anaphylaxis Amoxicillin 10/11/2022 Other reaction(s): Unknown Aspirin 10/11/2022 Other reaction(s): sensitivity Azithromycin Rash Low 10/11/2022 [place] Flavoring Agent (Non-Screening) Hives,Itching,Shortn ess of breath,Swelling,Whee [...] polyneuropathy, with long-term current use of insulin ([facility]) Use as directed to test blood sugars 3 times a day 100 strip 12 12/09/19 25 Active levalbuterol (Xopenex) 45 MCG/ACT inhalerIndications :Mild intermittent asthma without complication INHALE 2 PUFFS EVERY 4 HOURS IF NEEDED FOR WHEEZING. 15 g 12/25/19 25 Active nystatin (Mycostatin) 780728 UNIT/GM powderIndications: Soo infection of flexural skin Apply topically 2 times daily. 60 g 1 01/01/20 25 026 Active losartan (Cozaar) 100 MG tabletIndications: Essential (primary) hypertension TAKE 1 TABLET (100 MG) BY MOUTH ONCE PER DAY. 90 tablet 3 02/03/20 25 Active Basaglar KwikPen 100 UNIT/ML penIndications:Typ e 2 diabetes mellitus with diabetic polyneuropathy, with long-term current use of insulin ([facility]) Inject 82 Units under the [...] 03/09/20 25 Active Lancets (OneTouch Delica Plus [id number]) miscIndications:Ty pe 2 diabetes mellitus with diabetic polyneuropathy, with long-term current use of insulin ([facility]) CHECK GLUCOSE 3 TIMES A [...] pe 2 diabetes mellitus with diabetic polyneuropathy ([facility]) INJECT 1 EACH UNDER THE SKIN 4 TIMES DAILY. 100 each 3 05/18/20 25 Active insulin aspart FlexPen (NovoLOG) 100 UNIT/ML penIndications:Typ e 2 diabetes mellitus with diabetic polyneuropathy, with long-term current use of insulin ([facility]) Inject 8-10 Units under the [...] depression, PTSD. Engaged with Dom Carter at [facility] in [place] for medication. Sees Forrest at [facility] for therapy weekly on phone. Feeling [...] ARB and STATIN. EYE: Dr. Segura in [place] D[facility]: Has false teeth. FBS 60-100. Will [...] pain. Will refer to weight management. Completed SLASHER MACHINE OPERATOR paperwork for Ismael. Assessment & Plan (05/25/2023 [...] Mother vladimir hawk Hypertension Mother vladimir hawk NE Mother vladimir hawk after NE. Stroke Mother vladimir hawk Thyroid disease Mother [...] with long-term current use of insulin ([facility]) BI MAMMOGRAM SCREENING TOMOSYNTHESIS BILATERAL Routine 04/25/2025 1:53 PM EDT ALBUMIN/CREATININE RATIO, RANDOM URINE Routine 01/01/2025 12:00 AM EST Type 2 diabetes mellitus with diabetic polyneuropathy, with long-term current use of insulin ([facility]) DIABETES EYE EXAM Routine 05/28/2024 [...] specimen / Unknown 06/22/2025 2:22 PM EDT [facility] POINT OF CARE TEST ENTER/EDIT ORDERABLES Final Result * BI Mammogram Screening Tomosynthesis Bilateral (04/25/2025 1:53 PM EDT) Anatomical Region Laterality Modality Breast Bilateral Mammography 04/25/2025 1:53 PM EDT Narrative 04/27/2025 4:28 PM EDT PROCEDURE: MM Digital Mammo Screening INDICATION: Screening for breast cancer. No known palpable abnormalities. COMPARISON: [facility] dating back to 01/14/2013. TECHNIQUE: [...] (Negative) Lay letter mailed to patient WSN: [id number] Ordering Physician: Sharmila Azar Dictated By: Kayleigh Hall MD, I Dictated Date/Time: 04/27/25 4:25 pm Reviewed By: Kayleigh Hall MD, I Signed By: Kayleigh Hall MD, I Signed Date/Time: 04/27/25 4:25 pm Transcribed By: CSB Corporate Law Specialist Date/Time: 04/27/25 4:22 pm Birads: Procedure Note Donotuseinterpreter, Image - 04/27/2025 PROCEDURE: MM Digital Mammo Screening INDICATION: Screening for breast cancer. No known palpableabnormalities. COMPARISON: [facility] dating back to 01/14/2013. TECHNIQUE: [...] (Negative) Lay letter mailed to patient WSN: [id number] Ordering Physician: Sharmila Azar Dictated By: Kayleigh Hall MD, I Dictated Date/Time: 04/27/25 4:25 pm Reviewed By: Kayleigh Hall MD, I Signed By: Kayleigh Hall MD, I Signed Date/Time: 04/27/25 4:25 pm Transcribed By: CSB Corporate Law Specialist Date/Time: 04/27/25 4:22 pm Birads: [facility] IMG BI PROCEDURES Final Result [...] AM EST Performed at: 01 - [facility] [address] [id number] Position Classifier: Megan Curry MD, Phone: [phone] [facility] LAB URINE ORDERABLES Final Res ult [facility] 1 * Diabetes Eye Exam (05/28/2024 5:27 PM EDT) Historical Provider HEALTH MAINTENANCE Final Result * Lipid panel (12/11/2023 12:51 PM EST) Cholesterol, Total 142 (<200) MG/DL [facility] Triglyceride (mg/dL) in Serum/Plasma 89 (<150) MG/DL [facility] HDL Cholesterol 67 (>39) MG/DL [facility] LDL Cholesterol, Calculated 57 (0-130) MG/DL [facility] Non HDL Chol. (LDL+VLDL) 75 (<160) MG/DL [facility] Comment: Testing performed or reported by [facility], a Service of [facility], [address] [place] [address] Rojas Garza MD, Tone Cabinet Assembler [facility]# [id number] Blood Venous blood specimen / Unknown 12/11/2023 12:51 PM EST 12/11/2023 12:52 PM EST Francheska Tucker STRUCTURAL WELDER LAB BLOOD ORDERABLES Final Resul t Performing Organization Address [facility] de Phone Number [facility] [address] [place] [address] * Pap Smear (07/17/2023 12:00 AM EDT) Swab Historical Provider LAB CYTOLOGY ORDERABLES F inal Result Performing Organization Address [facility] de Phone Number [facility] [address] [place] [address] * Hm Colonoscopy (12/30/2020) Colonoscopy repeat in 10 yeasr Historical Provider HEALTH MAINTENANCE Final Result * -Hepatitis C Antibody Test (12/14/2020 7:58 AM EST) ANTI-HEPATITIS C NEGATIVE (NEG) [facility] Comment: Reference range: Negative This test was performed on the [employer] Closer immunoassay system. 12/14/2020 7:58 AM EST Shilpa Miller VETERINARY TECHNICIAN HISTORICAL/NON ORDERABLE LABS Final Result Performing Organization Address [facility] [address] * -HIV AB-AG 4TH GENERATION (12/14/2020 7:58 AM EST) RESULT 4TH GEN HIV AB-AG NEGATIVE (NEG) [facility] Comment: Negative for antibodies to HIV 1 and HIV 2 and P24 antigen. Reference range: Negative Additional note: Written patient authorization is required for each separate release of this test result. This test was performed on the [employer] Sh[employer] Closer immunoassay system. 12/14/2020 7:58 AM EST Shilpa Miller VETERINARY TECHNICIAN LAB BLOOD ORDERABLES Final Re sult Performing Organization Address [facility] Co de Phone Number [facility] [address] from Last 3 Months or Most Recently Relevant to Health Maintenance Insurance MEDICARE Member Subscriber Plan / Payer (Ef fective 2022-Present) Name:Qiana Doughertyberly Ricardo Member ID:[id number] Relation to Subscriber:Self Name:Elyssa Dougherty Subscriber ID:[id number] Payer ID:STATE Group ID:Not on file Type:Medicare Address: [place] [facility] [address] [address] [facility] Advance Directives Documents on File Type Date Recorded Patient Grain Merchandiser Expl anation HealthCare Proxy 10/24/2023 12:48 PM HCP Care Teams Vp Marketing Relationship Specialty Start Date End Date Inactive/Transferred PCP - General 08/12/25 Lei Thacker Health Navigator 09/17/24
--- OUTSIDE RECORDS SUMMARY | 2025-10-27 14:22 | XMS_ITS | Encounter Summary ---
Author Organization [employer] Address 75 [facility] 7 [place] [address] Care Team Providers Care Ibm Websphere Commerce Consultant Name Role Phone Francheska Tucker NP Primary Care Provider UnavailLei Paulson Unavailable Unavailable Sharmila Azar DO Primary Care Provider [phone] Inactive/Transferred Primary Care Provider Unava ilable Inactive/Transferred Primary Care Provider Unava ilable Reason for Visit * Reason Comments Med Change Request Encounter Details Date Type Department Care Team (Late st Contact Info) Description 2024 Refill Pat [facility] [address] [place] [address] Francheska Tucker NP Type 2 diabetes mellitus with diabetic polyneuropathy, with long-term current use of insulin ([facility]) Social History Tobacco Use Types [...] the past 12 months, has t he [employer], gas, oil or water [email or web address] threatened to shut off services in your [...] documented as of this encounter Care Teams Ibm Websphere Commerce Consultant Relationship Specialty Start Date End Date Francheska Tucker NP PCP - General Family Medicine 10/25/23 11/01/24 Sharmila Azar DO [address] [place] [address] PCP - General Family Medicine 11/02/24 06/17/25 Inactive/Transferred PCP - General 06/18/25 06/18/25 Inactive/Transferred PCP - General 08/12/25 eLi Thacker Health Navigator 09/17/24 documented as of this encounter
--- OUTSIDE RECORDS SUMMARY | 2025-10-27 14:22 | XMS_ITS | Encounter Summary ---
Author Organization [employer] Address 75 [facility] 7 [place] [address] Care Team Providers Care Respiratory Director Name Role Phone Lei Thacker Unavailable Unavailable Sharmila Azar DO Primary Care Provider [phone] Inactive/Transferred Primary Care Provider Unava ilable Inactive/Transferred Primary Care Provider Unava ilable Reason for Visit * Reason Onset Date Comments Med Refill 02/18/2025 Encounter Details Date Type Department Care Team (Late st Contact Info) Description 02/18/2025 Refill [place] [facility] MEDICAL [address] [place] [address] Sharmila Azar DO [address] [place] [address] Anxiety; PTSD (post-traumatic stress disorder) Social History [...] documented as of this encounter Care Teams Respiratory Director Relationship Specialty Start Date End Date Sharmila Azar DO [address] [place] [address] PCP - General Family Medicine 11/02/24 06/17/25 Inactive/Transferred PCP - General 06/18/25 06/18/25 Inactive/Transferred PCP - General 08/12/25 Lei Thacker Health Navigator 09/17/24 documented as of this encounter
--- OUTSIDE RECORDS SUMMARY | 2025-10-27 14:22 | XMS_ITS | Encounter Summary ---
Author Organization [employer] Address 75 [facility] 7t [place] [address] Care Team Providers Care It Technician Name Role Phone Francheska Tucker NP Primary Care Provider UnavailLei Paulson Unavailable Sharmila Collins DO Primary Care Provider [phone] Inactive/Transferred Primary Care Provider Unava ilable Inactive/Transferred Primary Care Provider Unava ilable Reason for Visit * Reason Comments Med Change Request Encounter Details Date Type Department Care Team (Late st Contact Info) Description 01/14/2024 Oneyda Stewart [facility] MEDICAL [address] [place] [address] Shilpa Miller, ORE CHARGER [address] [place] [address] Type 2 diabetes mellitus with diabetic polyneuropathy, with long-term current use of insulin ([facility]) Social History Tobacco Use Types Packs/Day [...] the past 12 months, has t he [facility], gas, oil or water [employer] threatened to shut off services in your [...] was filled out yesterday and faxed to [employer] there was another TE on this. documented in this encounter Plan of Treatment Not on file documented as of this encounter Visit Diagnoses Diagnosis Type 2 diabetes mellitus with diabetic polyneuropathy, with long-term current use of insulin (HCC) documented in this encounter Care Teams It Technician Relationship Specialty Start Date End Date Francheska Tucker NP PCP - General Family Medicine 10/25/23 11/01/24 Sharmila Azar DO [address] [place] [address] PCP - General Family Medicine 11/02/24 06/17/25 Inactive/Transferred PCP - General 06/18/25 06/18/25 Inactive/Transferred PCP - General 08/12/25 Lei Thacker Health Navigator 09/17/24 documented as of this encounter
--- OUTSIDE RECORDS SUMMARY | 2025-10-27 14:22 | XMS_ITS | Encounter Summary ---
Author Organization [employer] Address 75 [facility] 7t [place] [address] Care Team Providers Care Lasting Room Supervisor Name Role Phone Francheska Tucker NP Primary Care Provider UnavailLei Paulson Unavailable Unavailable Sharmila Azar DO Primary Care Provider [phone] Inactive/Transferred Primary Care Provider Unava ilable Inactive/Transferred Primary Care Provider Unava ilable Encounter Details Date Type Department Care Team (Late st Contact Info) Description 07/25/2024 Orders Only [facility] [address] [place] [address] Francheska Tucker NP Social History Tobacco Use [...] the past 12 months, has t he [employer], gas, oil or water company threatened to [...] Right Rad iographic Imaging us Francheska Tucker CLERICAL INVESTIGATOR IMG XR PROCEDURES Final Result documented in this encounter Visit Diagnoses Not on filedocumented in this encounter Additional Health Concerns Assessment Noted Time PHQ-9 Depression Total Score: 20 024 7:38 AM EDT documented as of this encounter Care Teams Lasting Room Supervisor Relationship Specialty Start Date End Date Francheska Tucker NP PCP - General Family Medicine 10/25/23 11/01/24 Sharmila Azar DO [address] [place] [address] PCP - General Family Medicine 11/02/24 06/17/25 Inactive/Transferred PCP - General 06/18/25 06/18/25 Inactive/Transferred PCP - General 08/12/25 Lei Thacker Health Navigator 09/17/24 documented as of this encounter
--- OUTSIDE RECORDS SUMMARY | 2025-10-27 14:22 | XMS_ITS | Encounter Summary ---
Author Organization [employer] Address 75 [facility] 7t [place] [address] Care Team Providers Care Team Driver Name Role Phone Lei Thacker Unavailable Unavailable Inactive/Transferred Primary Care Provider Unava ilable Encounter Details Date Type Department Care Team (Late st Contact Info) Description 07/17/2025 Orders Only Pat [facility] [address] [place] [address] Sharmila Azar DO [address] [place] [address] Arthralgia of both knees (Primary Dx); Lymphedema; [...] Expected: 07/23/2025 (Approximate), Expires: 07/23/2026 Blood culture [id number] Microbiology Routine Abnormal CBC ESR raised Expected: 07/23/2025, Expires: 07/23/2026 documented as of this encounter Procedures Procedure Name Priority Date/Time Associated Diagnosis Comments CBC WITH AUTO DIFFERENTIAL Routine 07/20/2025 9:20 AM EDT Arthralgia of both knees Lymphedema COMPREHENSIVE METABOLIC PANEL Routine 07/20/2025 9:20 AM EDT Arthralgia of both knees Lymphedema documented in this encounter Results * (ABNORMAL) Comprehensive Metabolic Panel [[id number]] (07/20/2025 9:20 AM EDT) Glucose 143(H) 70 [...] Resulting Agency Comment Performed at: 01 - [address] [id number] Seed Packer: Megan Curry MD, Phone: [phone] us Sharmila Azar DO LAB BLOOD ORDERABLES [...] Resulting Agency Comment Performed at: 01 - [address] [id number] Seed Packer: Megan Curry MD, Phone: [phone] us Sharmila Azar DO LAB BLOOD ORDERABLES [...] documented as of this encounter Care Teams Team Driver Relationship Specialty Start Date End Date Inactive/Transferred PCP - General 08/12/25 Lei Thacker Health Navigator 09/17/24 documented as of this encounter
--- OUTSIDE RECORDS SUMMARY | 2025-10-27 14:22 | XMS_ITS | Encounter Summary ---
Author Organization [employer] Address 75 [facility] 7 [place] [address] Care Team Providers Care Private Duty Rn Name Role Phone Lei Thacker Unavailable Unavailable Sharmila Azar DO Primary Care Provider [phone] Inactive/Transferred Primary Care Provider Unava ilable Inactive/Transferred Primary Care Provider Unava ilable Reason for Visit * Reason Comments Med Change Request Encounter Details Date Type Department Care Team (Late st Contact Info) Description 12/25/2024 Refill Pat [facility] [address] [place] [address] Sharmila Azar DO [address] [place] [address] Mild intermittent asthma without complication Social History [...] t he electric, gas, oil or water [employer] threatened to shut off services in your [...] documented as of this encounter Care Teams Private Duty Rn Relationship Specialty Start Date End Date Sharmila Azar DO [address] [place] [address] PCP - General Family Medicine 11/02/24 06/17/25 Inactive/Transferred PCP - General 06/18/25 06/18/25 Inactive/Transferred PCP - General 08/12/25 Lei Thacker Health Navigator 09/17/24 documented as of this encounter
--- OUTSIDE RECORDS SUMMARY | 2025-10-27 14:22 | XMS_ITS | Encounter Summary ---
Author Organization [employer] Address 75 [facility] 7t [place] [address] Care Team Providers Care Bait Digger Name Role Phone Lei Thacker Unavailable Unavailable Sharmila Azar Primary Care Provider [phone] Inactive/Transferred Primary Care Provider Unava ilable Inactive/Transferred Primary Care Provider Unava ilable Reason for Visit * Reason Onset Date Comments Med Refill 02/09/2025 Encounter Details Date Type Department Care Team (Late st Contact Info) Description 02/09/2025 Refill Pat [facility] [address] [place] [address] Francheska Tucker NP Type 2 diabetes mellitus [...] documented as of this encounter Care Teams Bait Digger Relationship Specialty Start Date End Date Sharmila Azar DO [address] [place] [address] PCP - General Family Medicine 11/02/24 06/17/25 Inactive/Transferred PCP - General 06/18/25 06/18/25 Inactive/Transferred PCP - General 08/12/25 Lei Thacker Health Navigator 09/17/24 documented as of this encounter
--- OUTSIDE RECORDS SUMMARY | 2025-10-27 14:23 | XMS_ITS | Encounter Summary ---
Author Organization [employer] Address 75 [facility] 7 [place] [address] Care Team Providers Care Publicist Name Role Phone Francheska Tucker NP Primary Care Provider UnavailLei Paulson Unavailable Sharmila Collins DO Primary Care Provider [phone] Inactive/Transferred Primary Care Provider Unava ilable Inactive/Transferred Primary Care Provider Unava ilable Reason for Visit * Reason Comments Med Refill Encounter Details Date Type Department Care Team (Late st Contact Info) Description 03/21/2024 Refill Pat [facility] [address] [place] [address] Shilpa Miller, CONTACT PERSON [address] [place] [address] Type 2 diabetes mellitus with diabetic polyneuropathy, with long-term current use of insulin ([facility]) Social History Tobacco Use Types [...] documented as of this encounter Care Teams Publicist Relationship Specialty Start Date End Date Francheska Tucker NP PCP - General Family Medicine 10/25/23 11/01/24 Sharmila Azar DO [address] [place] [address] PCP - General Family Medicine 11/02/24 06/17/25 Inactive/Transferred PCP - General 06/18/25 06/18/25 Inactive/Transferred PCP - General 08/12/25 Lei Thacker Health Navigator 09/17/24 documented as of this encounter
--- OUTSIDE RECORDS SUMMARY | 2025-10-27 14:23 | XMS_ITS | Encounter Summary ---
Author Organization [employer] Address [address] [facility] [address] 7t [place] [address] Care Team Providers Care Bpo Specialist Name Role Phone Lei Thacker Unavailable Unavailable King Sharmila Primary Care Provider [phone] Inactive/Transferred Primary Care Provider Unava ilable Inactive/Transferred Primary Care Provider Unava ilable Encounter Details Date Type Department Care Team (Late st Contact Info) Description 11/21/2024 Orders Only [facility] MEDICAL [address] [place] [address] Provider, MD Sharad Social History Tobacco Use [...] documented as of this encounter Care Teams Bpo Specialist Relationship Specialty Start Date End Date Sharmila Azar DO [address] [place] [address] PCP - General Family Medicine 11/02/24 06/17/25 Inactive/Transferred PCP - General 06/18/25 06/18/25 Inactive/Transferred PCP - General 08/12/25 Lei Thacker Health Navigator 09/17/24 documented as of this encounter
--- OUTSIDE RECORDS SUMMARY | 2025-10-27 14:23 | XMS_ITS | Encounter Summary ---
Author Organization [employer] Address [address] [place] [address] 7 [place] [address] Care Team Providers Care Dissolver Operator Name Role Phone Shilpa Miller CNP Primary Care Provider [phone] Francheska Tucker NP Primary Care Provider UnavailLei Paulson Unavailable Unavailable Sharmila Azar DO Primary Care Provider [phone] Inactive/Transferred Primary Care Provider Unava ilable Inactive/Transferred Primary Care Provider Unava ilable Encounter Details Date Type Department Care Team (Late st Contact Info) Description 11/30/2022 Abstract Pat [facility] [address] [place] [address] Shilpa Miller CNP [address] [place] [address] Social History Tobacco Use Types Packs/Day Years [...] on filedocumented in this encounter Care Teams Dissolver Operator Relationship Specialty Start Date End Date Shilpa Miller CNP [address] [place] [address] PCP - General Family Medicine 10/16/22 10/24/23 Francheska Tucker NP [address] [place] [address] PCP - General Family Medicine 10/25/23 11/01/24 Sharmila Azar DO [address] [place] [address] PCP - General Family Medicine 11/02/24 06/17/25 Inactive/Transferred PCP - General 06/18/25 06/18/25 Inactive/Transferred PCP - General 08/12/25 Lei Thacker Health Navigator 09/17/24 documented as of this encounter
--- OUTSIDE RECORDS SUMMARY | 2025-10-27 14:23 | XMS_ITS | Encounter Summary ---
Author Organization [employer] Address 75 [facility] 7 [place] [address] Care Team Providers Care Carbon Lamp Cleaner Name Role Phone Lie Thacker Unavailable Unavailable DoeSharmila Primary Care Provider [phone] Inactive/Transferred Primary Care Provider Unava ilable Inactive/Transferred Primary Care Provider Unava ilable Reason for Visit * Reason Comments Med Refill Encounter Details Date Type Department Care Team (Late st Contact Info) Description 11/09/2024 Refill [place] [facility] [address] [place] [address] Francheska Tucker NP Acquired hypothyroidism Social History [...] documented as of this encounter Care Teams Carbon Lamp Cleaner Relationship Specialty Start Date End Date Sharmila Azar DO [address] [place] [address] PCP - General Family Medicine 11/02/24 06/17/25 Inactive/Transferred PCP - General 06/18/25 06/18/25 Inactive/Transferred PCP - General 08/12/25 Lei Thacker Health Navigator 09/17/24 documented as of this encounter
--- OUTSIDE RECORDS SUMMARY | 2025-10-27 14:23 | XMS_ITS | Encounter Summary ---
Author Organization [employer] Address [address] [place] [address] 7 [place] [address] Care Team Providers Care Operation Shift Supervisor Name Role Phone Lei Thacker Unavailable Unavailable DoeSharmila Primary Care Provider [phone] Inactive/Transferred Primary Care Provider Unava ilable Inactive/Transferred Primary Care Provider Unava ilable Reason for Visit * Reason Onset Date Comments Med Refill 11/05/2024 Encounter Details Date Type Department Care Team (Late st Contact Info) Description 11/05/2024 Refill Pat [facility] MED[facility] [address] [place] [address] Shilpa Miller, METAL BONDING HELPER [address] [place] [address] Type 2 diabetes mellitus with diabetic polyneuropathy [...] documented as of this encounter Care Teams Operation Shift Supervisor Relationship Specialty Start Date End Date Sharmila Azar DO [address] [place] [address] PCP - General Family Medicine 11/02/24 06/17/25 Inactive/Transferred PCP - General 06/18/25 06/18/25 Inactive/Transferred PCP - General 08/12/25 Lei Thacker Health Navigator 09/17/24 documented as of this encounter
--- OUTSIDE RECORDS SUMMARY | 2025-10-27 14:23 | XMS_ITS | Encounter Summary ---
Author Organization [employer] Address [address] [place] [address] 7 [place] [address] Care Team Providers Care Refrigeration Service Inspector Name Role Phone Shilpa Miller CNP Primary Care Provider [phone] Francheska Tucker NP Primary Care Provider UnavailLei Paulson Unavailable Unavailable Sharmila Azar DO Primary Care Provider [phone] Inactive/Transferred Primary Care Provider Unava ilable Inactive/Transferred Primary Care Provider Unava ilable Encounter Details Date Type Department Care Team (Late st Contact Info) Description 10/26/2022 Abstract Pat [facility] [address] [place] [address] Shilpa Miller CNP [address] [place] [address] Social History Tobacco Use Types Packs/Day Years [...] Benign Anatomical Region Laterality Modality Other Result [facility] Historical Provider HEALTH MAINTENANCE Final Result documented in this encounter Visit Diagnoses Not on filedocumented in this encounter Care Teams Refrigeration Service Inspector Relationship Specialty Start Date End Date Shilpa Miller CNP [address] [place] [address] PCP - General Family Medicine 10/16/22 10/24/23 Francheska Tucker NP [address] [place] [address] PCP - General Family Medicine 10/25/23 11/01/24 Sharmila Azar DO [address] [place] [address] PCP - General Family Medicine 11/02/24 06/17/25 Inactive/Transferred PCP - General 06/18/25 06/18/25 Inactive/Transferred PCP - General 08/12/25 Lei Thacker Health Navigator 09/17/24 documented as of this encounter
--- OUTSIDE RECORDS SUMMARY | 2025-10-27 14:23 | XMS_ITS | Encounter Summary ---
Author Organization [employer] Address 75 [facility] 7 [place] [address] Care Team Providers Care Veneer Sawyer Name Role Phone Lei Thacker Unavailable Unavailable Sharmila Azar DO Primary Care Provider [phone] Inactive/Transferred Primary Care Provider Unava ilable Inactive/Transferred Primary Care Provider Unava ilable Reason for Visit * Reason Onset Date Comments Med Refill 11/27/2024 Encounter Details Date Type Department Care Team (Late st Contact Info) Description 11/27/2024 Refill Pat [facility] [address] [place] [address] Sharmila Azar DO [address] [place] [address] Anxiety; PTSD (post-traumatic stress disorder) Social History [...] documented as of this encounter Care Teams Veneer Sawyer Relationship Specialty Start Date End Date Sharmila Azar DO [address] [place] [address] PCP - General Family Medicine 11/02/24 06/17/25 Inactive/Transferred PCP - General 06/18/25 06/18/25 Inactive/Transferred PCP - General 08/12/25 Lei Thacker Health Navigator 09/17/24 documented as of this encounter
--- OUTSIDE RECORDS SUMMARY | 2025-10-27 14:23 | XMS_ITS | Encounter Summary ---
Author Organization [employer] Address [address] [place] [address] 7t [place] [address] Care Team Providers Care Pattern Painter Name Role Phone Francheska Tucker NP Primary Care Provider UnavailLei Paulson Unavailable Unavailable Sharmila Azar DO Primary Care Provider [phone] Inactive/Transferred Primary Care Provider Unava ilable Inactive/Transferred Primary Care Provider Unava ilable Reason for Visit * Reason Comments Med Change Request Encounter Details Date Type Department Care Team (Late st Contact Info) Description 01/16/2024 Oneyda Stewart [facility] [address] [place] [address] Amira Singh FNP Social History Tobacco Use [...] RX filled out yesterday and faxed to [place] [facility] [employer] [place] documented in this encounter Plan of Treatment Not on file documented as of this encounter Visit Diagnoses Not on filedocumented in this encounter Care Teams Pattern Painter Relationship Specialty Start Date End Date Francheska Tucker NP PCP - General Family Medicine 10/25/23 11/01/24 Sharmila Azar DO [address] [place] [address] PCP - General Family Medicine 11/02/24 06/17/25 Inactive/Transferred PCP - General 06/18/25 06/18/25 Inactive/Transferred PCP - General 08/12/25 Lei Thacker Health Navigator 09/17/24 documented as of this encounter
--- OUTSIDE RECORDS SUMMARY | 2025-10-27 14:23 | XMS_ITS | Encounter Summary ---
Author Organization [employer] Address [address] [place] [address] 7 [place] [address] Care Team Providers Care Irrigation Equipment Installer Name Role Phone Shilpa Miller MARIA C Primary Care Provider [phone] Francheska Tucker NP Primary Care Provider UnavailLei Paulson Unavailable Unavailable Sharmila Azar DO Primary Care Provider [phone] Inactive/Transferred Primary Care Provider Unava ilable Inactive/Transferred Primary Care Provider Unava ilable Encounter Details Date Type Department Care Team (Late st Contact Info) Description 12/01/2022 Orders Only [facility] MEDICAL [address] [place] [address] Avelina Fulton FNP Type 2 diabetes mellitus with diabetic polyneuropathy, with long-term current use of insulin ([facility]) (Primary Dx) Social History Tobacco Use Types [...] polyneuropathy, with long-term current use of insulin ([facility])- Primary documented in this encounter Care Teams Irrigation Equipment Installer Relationship Specialty Start Date End Date Shilpa Miller CNP [address] [place] [address] PCP - General Family Medicine 10/16/22 10/24/23 Francheska Tucker NP [address] [place] [address] PCP - General Family Medicine 10/25/23 11/01/24 Sharmila Azar DO [address] [place] [address] PCP - General Family Medicine 11/02/24 06/17/25 Inactive/Transferred PCP - General 06/18/25 06/18/25 Inactive/Transferred PCP - General 08/12/25 Lei Thacker Health Navigator 09/17/24 documented as of this encounter
--- OUTSIDE RECORDS SUMMARY | 2025-10-27 14:23 | XMS_ITS | Encounter Summary ---
Author Organization [employer] Address 75 [facility] 7 [place] [address] Care Team Providers Care Printing Equipment Mechanic Apprentice Name Role Phone Lei Thacker Unavailable Unavailable Sharimla Azar DO Primary Care Provider Inactive/Transferred Primary Care Provider Unava ilable Inactive/Transferred Primary Care Provider Unava ilable Reason for Visit * Reason Onset Date Comments Med Refill 12/11/2024 Encounter Details Date Type Department Care Team (Late st Contact Info) Description 12/11/2024 Refill [place] [facility] [address] [place] [address] Sharmila Azar DO [address] [place] [address] Anxiety; PTSD (post-traumatic stress disorder) Social History [...] documented as of this encounter Care Teams Printing Equipment Mechanic Apprentice Relationship Specialty Start Date End Date Sharmila Azar DO [address] [place] [address] PCP - General Family Medicine 11/02/24 06/17/25 Inactive/Transferred PCP - General 06/18/25 06/18/25 Inactive/Transferred PCP - General 08/12/25 Lei Thacker Health Navigator 09/17/24 documented as of this encounter
--- OUTSIDE RECORDS SUMMARY | 2025-10-27 14:23 | XMS_ITS | Encounter Summary ---
Author Organization [employer] Address [address] [place] [address] 7 [place] [address] Care Team Providers Care Regional Tanker Truck Driver Name Role Phone Shilpa Miller CNP Primary Care Provider [phone] Francheska Tucker NP Primary Care Provider UnavailLei Paulson Unavailable Unavailable Sharmila Azar DO Primary Care Provider [phone] Inactive/Transferred Primary Care Provider Unava ilable Inactive/Transferred Primary Care Provider Unava ilable Encounter Details Date Type Department Care Team (Late st Contact Info) Description 11/30/2022 Abstract Pat [facility] MEDICAL [address] [place] [address] Shilpa Miller CNP [address] [place] [address] Social History Tobacco Use Types Packs/Day Years [...] on filedocumented in this encounter Care Teams Regional Tanker Truck Driver Relationship Specialty Start Date End Date Shilpa Miller CNP [address] [place] [address] PCP - General Family Medicine 10/16/22 10/24/23 Francheska Tucker NP [address] [place] [address] PCP - General Family Medicine 10/25/23 11/01/24 Sharmila Azar DO [address] [place] [address] PCP - General Family Medicine 11/02/24 06/17/25 Inactive/Transferred PCP - General 06/18/25 06/18/25 Inactive/Transferred PCP - General 08/12/25 Lei Thacker Health Navigator 09/17/24 documented as of this encounter
--- OUTSIDE RECORDS SUMMARY | 2025-10-27 14:23 | XMS_ITS | Encounter Summary ---
Author Organization [employer] Address [address] [place] [address] 7 [place] [address] Care Team Providers Care Sand Miller Name Role Phone Shilpa Miller CNP Primary Care Provider [phone] Francheska Tucker NP Primary Care Provider UnavailLei Paulson Unavailable Unavailable Sharmila Azar DO Primary Care Provider [phone] Inactive/Transferred Primary Care Provider Unava ilable Inactive/Transferred Primary Care Provider Unava ilable Encounter Details Date Type Department Care Team (Late st Contact Info) Description 10/27/2022 Abstract Pat [facility] MED[facility] 73 [place] [address] Shilpa Miller CNP 73 [place] [address] Social History Tobacco Use Types Packs/Day Years [...] on filedocumented in this encounter Care Teams [place] Relationship Specialty Start Date End Date Shilpa Miller CNP 73 [place] [address] PCP - General Family Medicine 10/16/22 10/24/23 Francheska Tucker NP [address] [place] [address] PCP - General Family Medicine 10/25/23 11/01/24 Sharmila Azar DO [address] [place] [address] PCP - General Family Medicine 11/02/24 06/17/25 Inactive/Transferred PCP - General 06/18/25 06/18/25 Inactive/Transferred PCP - General 08/12/25 Lei Thacker Health Navigator 09/17/24 documented as of this encounter
--- OUTSIDE RECORDS SUMMARY | 2025-10-27 14:23 | XMS_ITS | Data Portability ---
Author Organization [facility], [facility] Address [address] [place] [address] Care Team Providers Care Spring Winder Name Role Phone Lianna Panchal Primary Care Provider Assessment No assessment recorded. Plan of Treatment Reminders Order Date Submit Date Provider Name Organization Details Last Modified By Last Modified Time Details Appointments RECHEC K 15 2025 02:30P M Robert Conde PA-C Not available Not available Not available Lab None record ed. Referral None record ed. Procedures None record ed. Surgeries None record ed. Imaging None record ed. MedicationOrders None record ed. VaccineOrders None record ed. Patient TargetsNo targets recorded. Patient InstructionsNo instructions recorded. Reason for Referral None Reported. Problems Name Problem SNOMED Code Status Onset Date Resolution Date Notes Provider Name and Address Organization Details Recorded Time No complaints [id number] Active Status : 'I'; Not Available [facility] 4 09:19:03 Problem Notes None recorded. Procedures Surgical History Date Name Laterality Status Provider Name and Address Organization Details Recorded Time 5 Knee Kenalog 40 1cc Injection, Bilateral completed Robert Conde PA-C [address], [place], [address], [facility] 10/20/2025 12:06:29 5 Knee Kenalog 40 1cc Injection, Bilateral completed Robert Conde PA-C [address], [place], [address], [facility] 07/15/2025 16:42:15 5 Knee Kenalog 40 1cc Injection, Bilateral completed Robert Elton, PA-C [address], [place], [address], [facility] 04/01/2025 07:56:50 5 Knee Kenalog 40 1cc Injection, Bilateral completed Robert Elton, PA-C [address], [place], [address], [facility] 12/31/2024 15:24:25 4 Knee Kenalog 40 1cc Injection, Bilateral completed Robert Elton, PA-C [address], [place], [address], [facility] 10/08/2024 13:43:12 4 Knee Kenalog 40 1cc Injection, Bilateral completed Robert Elton, PA-C [address], [place], [address], [facility] 07/09/2024 12:37:00 4 Knee Kenalog 40 1cc Injection, Bilateral completed Robert Elton, PA-C [address], [place], [address], [facility] 03/28/2024 08:24:20 Imaging Results None recorded. Procedure Notes None recorded. Medical Equipment None Reported. Allergies Allergen ID Allergen Name Allergen Category Reaction Reaction Severity Criticality Documentation Date Start Date Code Code System Note Provider Name and Address Organization Details Recorded Time 982308 Product containin g angiotens in-conver ting enzyme inhibitor (product) medicatio n Not available Not available Not available 03/27/2024 72226 009 SNOMED RODOLFO ERIKA [facility] 14:45:09 527205 Bactrim medicatio n Not available Not available Not available 03/27/2024 48190 9 RxNorm RODOLFO ERIKA [facility] 14:45:49 390136 metformin medicatio n Not available Not available Not available 03/27/2024 6809 RxNorm RODOLFO fernandes, [place] - [facility] 4 14:46:00 224885 Substance with sulfonami de structure and antibacte rial mechanism of action (substanc e) medicatio n Not available Not available Not available 03/27/2024 75432 8003 SNOMED RODOLFO fernandes, [place] - [facility] 4 14:46:16 311570 latex environme nt,medica tion Not available Not available Not available 03/27/2024 61997 91 RxNorm RODOLFO fernandes, [facility] 4 14:46:24 427545 Lyrica medicatio n Not available Not available Not available 10/08/2024 85186 1 RxNorm DOMENIC ORANTESTERESERubina fernandes, [facility] 14:50:46 096456 almond allergeni c extract food dyspnea hives itching rash swelling wheezing Not available Not available Not available Not available Not available Not available high 10/16/20251980 33898 7 RxNorm Other React ion(s ): Anaph ylaxi s Not Available [employer] - prod 5 09:56:51 655935 amoxicill in medicatio n Not available Not available Not available 10/16/20252021 723 RxNorm Other react ion(s ): Unkno wn Not Available [employer] - prod 5 09:56:51 416884 aluminum aspirin Not available Not available Not available Not available 10/16/20252021 611 RxNorm Other react ion(s ): sensi tivit y Not Available [employer] - prod 5 09:56:51 303853 azithromy gagandeep medicatio n rash Not available low 10/16/20252021 40470 RxNorm Not Available [employer] - prod 5 09:56:51 990576 buspirone medicatio n anxiety dyspnea rash swelling wheezing Not available Not available Not available Not available Not available high 10/16/20252024 1827 RxNorm Not Available dain - External [employer] - prod 5 09:56:51 907164 clonidine medicatio n Not available Not available low 10/16/20252022 2599 RxNorm Low blood press ure, nause a, vomit ing Not Available [employer] - prod 5 09:56:51 103480 desvenlaf axine succinate medicatio n swelling Not available Not available 10/16/20252021 49508 3 RxNorm Whole body swell ing Not Available [employer] - prod 5 09:56:51 613343 furosemid e medicatio n rash wheezing Not available Not available low 10/16/20252021 4603 RxNorm Not Available [employer] - prod 5 09:56:51 367574 iodine medicatio n rash Not available low 10/16/20252021 5933 RxNorm Not Available [employer] - prod 5 09:56:51 953101 liragluti de medicatio n diarrhea hives nausea rash Not available Not available Not available Not available low 10/16/20252021 96891 8 RxNorm Other react ion(s ): Unkno wn Not Available [employer] - prod 5 09:56:51 260222 lisinopri l medicatio n Not available Not available Not available 10/16/20252021 85373 RxNorm Other react ion(s ): edema Not Available [employer] - prod 5 09:56:51 506441 pregabali n medicatio n itching swelling Not available Not available high 10/16/20252023 04588 2 RxNorm Not Available [employer] - prod 5 09:56:[address] medicatio n rash Not available low 10/16/20252 20253 RxNorm Not Available dain - [employer] - prod 5 09:56:51 022558 omalizuma b medicatio n anaphylax is Not available high 10/16/20252021 49358 9 RxNorm Not Available dain - [employer] - prod 5 09:56:51 848618 penicilli n G Not available Not available Not available Not available 10/16/20252021 7980 RxNorm Other react ion(s ): Unkno wn Not Available dain - [employer] - prod 5 09:56:51 562146 pravastat in medicatio n rash Not available low 10/16/20252021 43709 RxNorm Not Available [employer] - prod 5 09:56:51 411761 semagluti de medicatio n Not available Not available Not available 10/16/20252021 05481 02 RxNorm Other react ion(s ): N and V Not Available [employer] - prod 5 09:56:51 709604 spironola ctone medicatio n rash Not available low 10/16/20252021 9997 RxNorm Not Available [employer] - prod 5 09:56:51 781469 sulfameth oxazole / trimethop rim medicatio n anaphylax is Not available high 10/16/20252021 25040 RxNorm Not Available dain - [employer] - prod 5 09:56:51 531079 sumatript an medicatio n Not available Not available Not available 10/16/20252021 77324 RxNorm Other react ion(s ): eleva hanny blood press ure Not Available [employer] - prod 5 09:56:51 985127 acetamino phen medicatio n hives Not available Not available 10/16/20252021 161 RxNorm Other react ion(s ): facia l swell ing Not Available dain - [employer] - prod 5 09:56:51 216601 vortioxet ine hydrobrom bora medicatio n anxiety swelling Not available Not available low 10/16/20252024 25208 34 RxNorm Not Available dain - [employer] - prod 5 09:56:51 780167 ascorbic acid / cholecalc iferol / folic acid / niacin / riboflavi n / sodium fluoride / thiamine / vitamin A / vitamin B12 / vitamin B6 / vitamin E medicatio n Not available Not available Not available 10/16/2025 31795 81 RxNorm Not Available dain - [employer] - prod 5 09:56:52 687204 sulfadiaz ine medicatio n Not available Not available Not available 10/16/2025 58594 RxNorm Not Available dain - [employer] - prod 5 09:56:52 380650 aspirin medicatio n Not available Not available Not available 10/16/2025 1191 RxNorm Not Available dain - [employer] - prod 5 09:56:52 792895 Non-stero idal anti-infl ammatory agent (substanc e) medicatio n Not available Not available Not available 10/16/2025 97742 5008 SNOMED Not Available dain - [employer] - prod 5 09:56:52 936050 Iodinated contrast media (substanc e) medicatio n Not available Not available Not available 10/16/2025 60054 2004 SNOMED Not Available dain - [employer] - prod 5 09:56:52 558286 Victoza medicatio n diarrhea hives nausea Not available Not available Not available Not available 10/19/20252024 58319 3 RxNorm unrec ogniz ed react ion (text : Rash, code: 14365 5008) (from exter nal sourc e) Not Available dain - [employer] - prod 5 03:58:07 591482 Ozempic medicatio n diarrhea hives nausea Not available Not available Not available Not available 10/19/202520243 07 RxNorm unrec ogniz ed react ion (text : Rash, code: 55312 5008) (from exter nal sourc e) Not Available dain [employer] - prod 5 03:58:07 333492 Lasix medicatio n dyspnea hives Not available Not available Not available 10/19/2025202499 1 RxNorm unrec ogniz ed react ion (text : Rash, code: 15666 5008) (from exter nal sourc e) Not Available dain - [employer] - prod 5 03:58:07 457064 Tylenol medicatio n Not available Not available Not available 10/19/2025202443 3 RxNorm Not Available [facility] [employer] - prod 5 03:58:07 092974 Singulair medicatio n Not available Not available Not available 10/19/20252024 04932 9 RxNorm Not Available [facility] [employer] - prod 5 03:58:07 08249 Product containin g penicilli n (product) medicatio n Not available Not available Not available 01/07/20242010 92057 8001 SNOMED Aller gyRea ction : 'Skin React ion, Nause a/Vom iting /Diar gustavo' ; Not Available [facility] 4 15:13:20 44255 amoxicill in trihydrat e medicatio n Not available Not available Not available 01/07/20242010 23633 8 RxNorm Aller gyRea ction : 'Skin React ion'; Not Available [facility] 4 15:13:20 Medications Name Authored On Sig Start Date Stop Date Status Note Indication Fill Status Repeat Number Dispense Quantity LastModified by Organization Details LastModified Time albut luigi sulfa te HFA 90 mcg/a ctuat ion aeros ol inhal er 4 13:58:40 INHA LE 2 PUFF S BY MOUT H EVER Y 4 HOUR S NEED ED FOR WHEE ZE active Not Available Not availab le 0 Not Available Not Available [facility] 03/27/2024 13:58:40 gluco se 4 gram chewa ble table t 4 13:58:40 CHEW 4 TABL ETS (16 G) IF NEED ED FOR LOW BLOO D SUGA R. active Not Available Not availab le 0 Not Available Not Available [facility] 03/27/2024 13:58:40 BD Insul in Syrin ge Ultra -Fine 0.3 mL 30 gauge x 1/2 4 05:56:[address] 1-4 TIME S ANUJ Y DIRE CTED . active Not Available Not availab le 0 Not Available Not Available [facility] 10/08/2024 05:56:15 insul in aspar t U-100 100 unit/ mL subcu taneo us solut ion 4 05:56:15 PLEA SE SEE ANIL CHED FOR DETA ILED DIRE CTIO NS active Not Available Not availab le 0 Not Available Not Available [facility] 10/08/2024 05:56:15 clind amyci n HCl 150 mg capsu le 5 15:59:26 TAKE 2 CAPS ULES BY MOUT H EVER Y 6 HOUR S,X7 DAYS active Not Available Not availab le 0 Not Available Not Available dani - [employer] - prod 03/29/2025 15:59:26 nysta tin 100,0 00 unit/ gram topic al powde r 5 15:59:29 APPL Y TO AFFE CTED AREA TWIC E A DAY active Not Available Not availab le 0 Not Available Not Available dain - [employer] - prod 03/29/2025 15:59:29 ezio ium lacta te 12 % lotio n 5 15:57:16 PLEA SE SEE ANIL CHED FOR DETA ILED DIRE CTIO NS active Not Available Not availab le 0 Not Available Not Available dain - [employer] - prod 07/12/2025 15:57:16 mupir ocin 2 % topic al ointm ent 5 15:57:16 APPL Y IN THE MORN ING AND IN THE EVEN ING TO THE KNEE FOLD S UNTI L HEAL ED active Not Available Not availab le 0 Not Available Not Available dain - [employer] - prod 07/12/2025 15:57:16 albut luigi sulfa te 2.5 mg/3 mL (0.08 3 %) solut ion for nebul izati on 5 15:57:17 3 ML INHA LATI ON EVER Y 6 HOUR S NEED ED FOR WHEE ZING active Not Available Not availab le 0 Not Available Not Available dain - [employer] - prod 07/12/2025 15:57:17 FreeS tyle Preci nupur Qasim Strip s 5 15:57:17 USE DIRE CTED TO TEST BLOO D SUGA RS 3 TIME S A DAY active Not Available Not availab le 0 Not Available Not Available dain - [employer] - prod 07/12/2025 15:57:17 Viibr yd 20 mg table t 5 15:57:17 TAKE 1 TABL ET BY MOUT H EVER Y DAY active Not Available Not availab le 0 Not Available Not Available dain - [employer] - prod 07/12/2025 15:57:17 Viibr yd 10 mg table t 5 15:57:19 TAKE 1 TABL ET BY MOUT H EVER Y DAY active Not Available Not availab le 0 Not Available Not Available dain - [employer] - prod 07/12/2025 15:57:19 OneTo uch Delic a Plus Kamron t 33 gauge 5 15:57:20 CHEC K GLUC OSE 3 TIME S A DAY active Not Available Not availab le 0 Not Available Not Available dain - [employer] - prod 07/12/2025 15:57:20 doxyc yclin e hycla te 100 mg table t 4 05:56:15 TAKE 1 TABL ET BY MOUT H 2 TIME S A DAY, X7 DAYS , FOR PROP HYLA XIS CAT BITE - HIGH RISK COMP LICA TION S 12/25 aborted Not Available Not availab le 0 Not Available DOMENIC GUILLEN [place] - [facility] 07/15/2025 14:55:23 Alcoh ol Prep Pads 5 16:03:54 TEST ANUJ Y BEFO RE ALL MEAL S/SN ACKS AND ONCE BEFO RE BEDT ROBERT. active Not Available Not availab le 0 Not Available Not Available dain - External [employer] - prod 10/16/2025 16:03:54 clona zepam 1 mg table t 5 16:03:54 TAKE 1 TABL ET BY ROBIN Richard THRE E TIME S A DAY NEED ED active Not Available Not availab le 0 Not Available Not Available dain - External [employer] - prod 10/16/2025 16:03:54 Humal og KwikP en (U-10 0) Insul in 100 unit/ [facility] 15 UNIT S SUBC UTAN EOUS LY 3 TIME S A DAY MAX OF 60 UNIT S ANUJ Y active Not Available Not availab le 0 Not Available Not Available dain - External Data [employer] - prod 10/16/2025 16:03:54 amlod ipine 5 mg table t 5 16:03:55 TAKE 1 TABL ET BY MODEBORAH H EVER Y DAY active Not Available Not availab le 0 Not Available Not Available dain - External [employer] - prod 10/16/2025 16:03:55 atorv astat in 20 mg table t 5 16:03:55 TAKE 1 TABL ET BY MOUT H EVER Y MORN ING active Not Available Not availab le 0 Not Available Not Available dain - External Data Service - prod 10/16/2025 16:03:55 Basag lar KwikP en U-100 Insul in 100 unit/ mL (3 mL) subcu [facility] 5 16:03:[address] 82 UNIT S UNDE R THE SKIN AT BEDT ROBERT. active Not Available Not availab le 0 Not Available Not Available dain - External Data Service - prod 10/16/2025 16:03:55 epine phrin e 0.3 mg/0. 3 mL injec tion, auto- injec tor 5 16:03:[address] 1 SING LE-D OSE CECILIA CE INTO THE THIG H NEED ED FOR BETH RE CHRISTINA RGIC REAC TION active Not Available Not availab le 0 Not Available Not Available dain - External Data Service - prod 10/16/2025 16:03:55 FreeS tyle Kamron ts 28 gauge 5 16:03:55 USE TO TEST BLOO D SUGA R 3 TIME S ANUJ Y active Not Available Not availab le 0 Not Available Not Available dain - External Data Service - prod 10/16/2025 16:03:55 levot hyrox ine 200 mcg table t 5 16:03:55 TAKE 1 TABL ET (200 MCG) BY MODEBORAH H ONCE PER DAY. active Not Available Not availab le 0 Not Available Not Available dain - External Data Service - prod 10/16/2025 16:03:55 losar up 100 mg table t 16:03:55 TAKE 1 TABL ET BY ROBIN Richard ANUJ Y active Not Available Not availab le 0 Not Available Not Available dain - External Data [employer] - prod 10/16/2025 16:03:55 Fidelia 2nd Gen Pen Needl e 32 gauge x 5/32 16:03:[address] 1 EACH UNDE R THE SKIN 4 TIME S ANUJ Y. active Not Available Not availab le 0 Not Available Not Available dain - External Data Service - prod 10/16/2025 16:03:55 doxyc yclin e monoh ydrat e 100 mg capsu le 16:03:56 TAKE ONE PILL BY MOUT Hilary AFTE R LUNC H AND DINN ER TO AMRITA T RASH . active Not Available Not availab le 0 Not Available Not Available dain - External Data Service - prod 10/16/2025 16:03:56 insul in aspar t (U-10 0) 100 unit/ mL (3 mL) subcu taneo us pen 16:03:56 15 UNIT (0.1 5 ML) SUBC UTAN EOUS LY 3 TIME S A DAY active Not Available Not availab le 0 Not Available Not Available dain - External Data Service - prod 10/16/2025 16:03:56 leval buter ol HFA 45 mcg/a ctuat ion aeros ol inhal er 16:03:56 1 INHA LATI ON INHA LATI ON EVER Y 4 HOUR S, NEED ED FOR SHOR TNES S OF LIBAN TH OR WHEE ZING active Not Available Not availab le 0 Not Available Not Available dain - External Data Service - prod 10/16/2025 16:03:56 levot hyrox ine 25 mcg table t 5 16:03:56 TAKE 1 TABL ET BY MOUT H EVER Y DAY active Not Available Not availab le 0 Not Available Not Available dain - External Data Service - prod 10/16/2025 16:03:56 triam cinol one aceto nide 0.1 % topic al ointm ent 5 16:03:56 PLEA SE SEE ANIL CHED FOR DETA ILED DIRE CTIO NS active Not Available Not availab le 0 Not Available Not Available dain - External Data Service - prod 10/16/2025 16:03:56 clona zepam 0.5 mg table t 5 05:54:57 TAKE 1 TABL ET BY MOUT H TWIC E A DAY FOR 7 DAYS 03/26 aborted Not Available Not availab le 0 Not Available DOMENIC GUILLEN [facility] 10/19/2025 15:42:26 clotr imazo le-be tamet hason e 1 %-0.0 5 % topic al cream 4 06:50:23 APPL Y TO AFFE CTED AREA TWIC E A DAY FOR 14 DAYS 03/26 aborted Not Available Not availab le 0 Not Available DOMENIC GUILLEN [facility] 10/19/2025 15:42:26 docus ate sodiu m 100 mg capsu le 5 05:54:57 TAKE 1 CAPS ULE BY MOUT H TWIC E A DAY 03/26 aborted Not Available Not availab le 0 Not Available DOMENIC GUILLEN [facility] 10/19/2025 15:42:26 doxep in 6 mg table t 5 15:42:26 03/26 aborted Not Available Not availab le 0 Not Available DOMENIC GUILLEN [facility] 10/19/2025 15:42:26 ethac rynic acid 25 mg table t 4 13:58:40 TAKE 6 TABL ETS BY ROBIN SMITH E A DAY 03/26 aborted Not Available Not availab le 0 Not Available DOMENIC ORANTESLISASHAISTA [facility] 10/19/2025 15:42:26 fluti jethro e propi aries 220 mcg/a ctuat ion HFA aeros ol inhal er 15:42:26 03/26 aborted Not Available Not availab le 0 Not Available DOMENIC ORANTESLISASHAISTA [facility] 10/19/2025 15:42:26 Inveg a Suste nna 117 mg/0. 75 mL intra muscu lar syrin ge 15:42:26 03/26 aborted Not Available Not availab le 0 Not Available DOMENIC ORANTESLISASHAISTA [facility] 10/19/2025 15:42:26 Inveg a Suste nna 156 mg/mL intra muscu lar syrin ge 15:42:26 03/26 aborted Not Available Not availab le 0 Not Available DOMENIC ORANTESLISASHAISTA [facility] 10/19/2025 15:42:26 levof loxac in 250 mg table t 15:42:26 03/26 aborted Not Available Not availab le 0 Not Available DOMENIC GUILLEN [facility] 10/19/2025 15:42:26 levof loxac in 750 mg table t 15:42:26 03/26 aborted Not Available Not availab le 0 Not Available DOMENIC ORANTESLISASHAISTA [facility] 10/19/2025 15:42:26 levot hyrox ine 175 mcg capsu le 15:42:26 03/26 aborted Not Available Not availab le 0 Not Available [facility] 10/19/2025 15:42:26 Myrbe triq 25 mg table t,ext ended relea se 15:42:26 03/26 aborted Not Available Not availab le 0 Not Available DOMENIC ORANTESLISALEORubina [facility] 10/19/2025 15:42:26 nitro furan toin monoh ydrat e/mac rocry stals 100 mg capsu le 15:42:26 03/26 aborted Not Available Not availab le 0 Not Available DOMENIC GUILLEN [facility] 10/19/2025 15:42:26 olanz apine 10 mg table t 15:42:26 03/26 aborted Not Available Not availab le 0 Not Available [facility] 10/19/2025 15:42:26 cecy srinivasan 8 mg table t 15:42:26 03/26 aborted Not Available Not availab le 0 Not Available [facility] 10/19/2025 15:42:26 topir amate 100 mg table t 15:42:26 03/26 aborted Not Available Not availab le 0 Not Available [facility] 10/19/2025 15:42:26 Trint ellix 5 mg table t 15:42:26 03/26 aborted Not Available Not availab le 0 Not Available [facility]IC [facility] 10/19/2025 15:42:26 buspi jocy 5 mg table t 15:42:27 03/26 aborted Not Available Not availab le 0 Not Available [facility] 10/19/2025 15:42:27 chlor thali done 25 mg table t 15:42:27 03/26 aborted Not Available Not availab le 0 Not Available DOMENIC HASSANRubina [facility] 10/19/2025 15:42:27 perla calci ferol (renuka min D3) 25 mcg (1,00 0 unit) table t 16:03:56 TAKE 1 TABL ET (25 MCG) BY ROBIN Richard IN THE MORN ING 03/26 aborted Not Available Not availab le 0 Not Available DOMENIC GUILLEN [facility] 10/19/2025 15:42:27 cloni dine HCl 0.1 mg table t 15:42:27 03/26 aborted Not Available Not availab le 0 Not Available DOMENIC GUILLEN [facility] 10/19/2025 15:42:27 clotr imazo le 1 % topic al cream 15:59:28 APPL Y TO AFFE CTED AREA TWIC E A DAY FOR 14 DAYS 03/26 aborted Not Available Not availab le 0 Not Available DOMENIC GUILLEN [facility] 10/19/2025 15:42:27 Fiasp FlexT ouch U-100 Insul in 100 unit/ mL (3 mL) subcu taneo us pen 15:42:27 03/26 aborted Not Available Not availab le 0 Not Available DOMENIC GUILLEN [facility] 10/19/2025 15:42:27 fluco nazol e 150 mg table t 15:42:27 03/26 aborted Not Available Not availab le 0 Not Available DOMENIC GUILLEN [facility] 10/19/2025 15:42:27 gabap entin 600 mg table t 15:42:27 03/26 aborted Not Available Not availab le 0 Not Available DOMENIC GUILLEN [facility] 10/19/2025 15:42:27 Inveg a Suste nna 234 mg/1. 5 mL intra muscu lar syrin ge 15:42:27 03/26 aborted Not Available Not availab le 0 Not Available DOMENIC GUILLEN [facility] 10/19/2025 15:42:27 Lybal vi 5 mg-10 mg table t 15:42:27 03/26 aborted Not Available Not availab le 0 Not Available DOMENIC ORANTESLISASHAISTA [facility] 10/19/2025 15:42:27 metro nidaz ole 500 mg table t 15:42:27 03/26 aborted Not Available Not availab le 0 Not Available DOMENIC ORANTESLISASHAISTA [facility] 10/19/2025 15:42:27 Myrbe triq 50 mg table t,ext ended relea se 15:42:27 03/26 aborted Not Available Not availab le 0 Not Available DOMENIC GUILLEN [facility] 10/19/2025 15:42:27 prazo sin 1 mg capsu le 15:42:27 03/26 aborted Not Available Not availab le 0 Not Available DOMENIC LARLISASHAISTA [facility] 10/19/2025 15:42:27 prega balin 25 mg capsu le 15:42:27 03/26 aborted Not Available Not availab le 0 Not Available DOMENIC LARLISASHAISTA [facility] 10/19/2025 15:42:27 Pulmi johnnie Flexh aler 180 mcg/a ctuat ion breat h activ ated 15:42:27 03/26 aborted Not Available Not availab le 0 Not Available DOMENIC LARLISASHAISTA [facility] 10/19/2025 15:42:27 rispe ridon e 0.5 mg table t 15:42:27 03/26 aborted Not Available Not availab le 0 [facility] 15:42:27 rispe ridon e 1 mg table t 15:42:27 03/26 aborted Not Available Not availab le 0 Not Available DOMENIC LARLISASHAISTA [facility] 10/19/2025 15:42:27 Trint ellix 10 mg table t 15:42:27 03/26 aborted Not Available Not availab le 0 Not Available DOMENIC GUILLEN [facility] 10/19/2025 15:42:27 Trint ellix 20 mg table t 05:54:57 TAKE 1 TABL ET (20 MG) BY MOUT H ONCE PER DAY. 03/26 aborted Not Available Not availab le 0 Not Available DOMENIC GUILLEN [facility] 10/19/2025 15:42:27 vilaz odone 40 mg table t 15:42:27 03/26 aborted Not Available Not availab le 0 Not Available DOMENIC GUILLEN [facility] 10/19/2025 15:42:27 Vrayl ar 6 mg capsu le 15:42:27 03/26 aborted Not Available Not availab le 0 Not Available DOMENIC GUILLEN [facility] 10/19/2025 15:42:27 Vitals Date Recorded Body height Provider Name an d Address Organization Details Last Updated DateTime 12/31/2024 157.48 cm DOMENIC GUILLEN [facility] 12/31/2024 14:28:54 Date Recorded Body height Provider Name an d Address Organization Details Last Updated DateTime 04/01/2025 157.48 cm DOMENIC GUILLEN [facility] 04/01/2025 15:30:39 Date Recorded Body height Provider Name an d Address Organization Details Last Updated DateTime 07/15/2025 157.48 cm DOMENIC GUILLEN [facility] 07/15/2025 14:55:05 Date Recorded Body height Provider Name an d Address Organization Details Last Updated DateTime 10/08/2024 157.48 cm DOMENIC GUILLEN [facility] 10/08/2024 14:49:10 Date Recorded Body height Provider Name an d Address Organization Details Last Updated DateTime 10/19/2025 157.48 cm DOMENIC HASSANRubina [facility] 10/19/2025 15:42:06 Social History Social History Observation Description Date Observed Sex Unknown 10/16/2025 Legal Sex Female Status Not (finding) 10/27/20 25 No social history survey screeners recorded No social history SDOH screeners recorded Functional Status None recorded. No Functional Screening assessment recorded No Functional SDOH screeners recorded Mental Status None recorded. No Mental Screening assessment recorded No Mental SDOH screeners recorded Family History Nothing Reported. Medical History Condition Response Allergies/Hayfever N Coronary Artery Disease N Anxiety/Depression N Breathing or lung disorders Y Emphysema N Nerve Disorders N Thyroid Problems Y COPD N Pacemaker N Anemia N Kidney/Bladder Problems N Vascular Disease N Heart Trouble N Heart Attack (ND) N Gastrointestinal Disease N Cholesterol Y Diabetes [...] ICD10 Code Diagnosis IMO Codes Diagnosis Note [id number] LEEANN Ribeiro [address] [place] [place] [address] 03/27/2024 13:58:04 04/16/2024 13:21:33 Pain of right knee joint 7027799352 93519 M25.561 Osteoarthr itis of left knee joint 2611900463 10035 M17.12 [id number] LEEANN Ribeironirubina [address] [place] [address] 07/09/2024 14:07:17 07/30/2024 11:29:18 Osteoarthritis of left knee joint 1526183807 80968 M17.12 Pain of ri ght knee joint 0582789426 80680 M25.529 [id number] LEEANN Ribeironirubina [address] [place] [place] [address] 10/08/2024 14:46:36 11/03/2024 13:40:49 Osteoarthritis of left knee joint 0607647138 82538 M17.12 5898117 Osteoarthr itis of right knee joint 5798782218 40298 M17.11 9984808 [id number] LEEANN Ribeiro Clinical [address] [place] [address] 12/31/2024 14:17:58 01/12/2025 12:14:57 Osteoarthritis of left knee joint 7847258544 18301 M17.12 2449516 Osteoarthr itis of right knee joint 5167463949 M17.11 [id number] LEEANN Ribeiro [facility] [address] [place] [address] 04/01/2025 15:11:57 04/08/2025 14:00:33 Osteoarthritis of left knee joint 8356500919 46460 M17.12 1301265 Osteoarthr itis of right knee joint 6861057824 M17.11 1645272 [id number] LEEANN Ribeiro [facility] [address] [place] [address] 07/15/2025 14:51:53 07/23/2025 15:49:13 Osteoarthritis of left knee joint 4748245264 48125 M17.12 [id number] Osteoarthr itis of right knee joint 8195549239 M17.11 [id number] LEEANN Ribeiro [facility] [address] [place] [address] 10/19/2025 15:35:01 10/20/2025 12:07:08 Osteoarthritis of left knee joint 7457094468 85205 M17.12 2709438 Osteoarthr itis of right knee joint 3599778609 M17.11 [id number] Health Concerns Section Related Observation LastModified by Organization Detai ls LastModified Time None Recorded Concern Status LastModified by Organization Details LastModified Time None Recorded SDOH Concern Status LastModified by Organization Detai ls LastModified Time None Recorded Advance Directives Directive None Recorded Payers Insurance Date Sequence Insurance Name Policy Number Policy Palafox Covered Member ID Palafox Member ID Guarantor Name 10/19/2025 1 [place] [employer] Sebastián Shawway [id number] Sebastián Shawway 10/19/2025 2 [place] [facility] Sebastián Griderumway [id number] Sebastián Silva Wiley Notes Date Note Type Note Provider Name [...] conservative treatment. Robert Conde PA-C [address] [facility] [address], [place], [address], [facility] 10/08/2024 15:02:32 12/31/2024 text/html [...] conservative treatment. Robert Conde PA-C [address] [facility] [address], [place], [address], [facility] 12/31/2024 15:24:59 04/01/2025 text/html [...] versus continued conservative treatment. Robert Conde PA-C [address] [place] [address] [address], [place], [address], [facility] 04/01/2025 16:26:04 07/15/2025 text/html [...] compression devices. Robert Conde PA-C [address] [facility] [address] [facility], [place], [address], [facility] 07/15/2025 16:42:38 10/19/2025 text/html [...] compression devices. Robert Conde PA-C [address] [facility] [address], [place], [address], [place] [facility] 10/20/2025 12:07:06 Care Team Name Role Member ID Specialty Address Phone LIANNA PANCHAL NP Primary Care Provider [phone] [facility], [place], [place] OBGyn Episode No OBEpisode recorded.
--- OUTSIDE RECORDS SUMMARY | 2025-10-27 14:23 | XMS_ITS | Continuity of Care Document ---
Author Organization [facility], VITO Briscoe Clinical Address [address] [place] [address] Care Team Providers Care Child Therapist Name Role Phone Lianna Panchal Primary Care Provider [phone] Assessment No assessment recorded. Plan of Treatment [...] Address Organization Details Recorded Time No complaints [id number] Active Status : 'I'; Not Available [facility] 4 09:19:03 Problem Notes None recorded. Procedures Surgical History Date Name Laterality Status Provider Name and Address Organization Details Recorded Time 5 Knee Kenalog 40 1cc Injection, Bilateral completed Robert Conde PA-C [address], [place], [address], [facility] 10/20/2025 12:06:29 5 Knee Kenalog 40 1cc Injection, Bilateral completed Robert Conde PA-C [address], [place], [address], [facility] 07/15/2025 16:42:15 5 Knee Kenalog 40 1cc Injection, Bilateral completed Robert Elton, PA-C [address], [place], [address], [facility] 04/01/2025 07:56:50 5 Knee Kenalog 40 1cc Injection, Bilateral completed Robert Elton, PA-C [address], [place], [address], [facility] 12/31/2024 15:24:25 4 Knee Kenalog 40 1cc Injection, Bilateral completed Robert Elton, PA-C [address], [place], [address], [facility] 10/08/2024 13:43:12 4 Knee Kenalog 40 1cc Injection, Bilateral completed Robert Elton, PA-C [address], [place], [address], [facility] 07/09/2024 12:37:00 4 Knee Kenalog 40 1cc Injection, Bilateral completed Robert Elton, PA-C [address], [place], [address], [facility] 03/28/2024 08:24:20 Imaging Results None recorded. Procedure Notes None recorded. Medical Equipment None Reported. Allergies Allergen ID Allergen Name Allergen Category Reaction Reaction Severity Criticality Documentation Date Start Date Code Code System Note Provider Name and Address Organization Details Recorded Time 866260 Product containin g angiotens in-conver ting enzyme inhibitor (product) medicatio n Not available Not available Not available 03/27/2024 28123 009 SNOMED RODOLFO JAMES [facility] 14:45:09 149840 Bactrim medicatio n Not available Not available Not available 03/27/2024 36110 9 RxNorm RODOLFO fernandes [facility] 14:45:49 706444 metformin medicatio n Not available Not available Not available 03/27/2024 6809 RxNorm RODOLFO fernandes, [place] - [facility] 4 14:46:00 283648 Substance with sulfonami de structure and antibacte rial mechanism of action (substanc e) medicatio n Not available Not available Not available 03/27/2024 36015 8003 SNOMED RODOLFO fernandes, [facility] 4 14:46:16 311489 latex environme nt,medica tion Not available Not available Not available 03/27/2024 52880 91 RxNorm RODOLFO fernandes, [facility] 4 14:46:24 084337 Lyrica medicatio n Not available Not available Not available 10/08/2024 22031 1 RxNorm DOMENIC GUILLEN [facility], [facility] 14:50:46 914039 almond allergeni c extract food dyspnea hives itching rash swelling wheezing Not available Not available Not available Not available Not available Not available high 10/16/20251980 64198 7 RxNorm Other React ion(s ): Anaph ylaxi s Not Available [employer] - prod 5 09:56:51 744648 amoxicill in medicatio n Not available Not available Not available 10/16/20252021 723 RxNorm Other react ion(s ): Unkno wn Not Available [employer] - prod 5 09:56:51 062560 aluminum aspirin Not available Not available Not available Not available 10/16/20252021 611 RxNorm Other react ion(s ): sensi tivit y Not Available [employer] - prod 5 09:56:51 460173 azithromy gagandeep medicatio n rash Not available low 10/16/20252021 93374 RxNorm Not Available [employer] - prod 5 09:56:51 640507 buspirone medicatio n anxiety dyspnea rash swelling wheezing Not available Not available Not available Not available Not available high 10/16/20252024 1827 RxNorm Not Available [employer] - prod 5 09:56:51 641398 clonidine medicatio n Not available Not available low 10/16/20252022 2599 RxNorm Low blood press ure, nause a, vomit ing Not Available [employer] - prod 5 09:56:51 422466 desvenlaf axine succinate medicatio n swelling Not available Not available 10/16/20252021 71706 3 RxNorm Whole body swell ing Not Available [employer] - prod 5 09:56:51 850803 furosemid e medicatio n rash wheezing Not available Not available low 10/16/20252021 4603 RxNorm Not Available [employer] - prod 5 09:56:51 782725 iodine medicatio n rash Not available low 10/16/20252021 5933 RxNorm Not Available [employer] - prod 5 09:56:51 917838 liragluti de medicatio n diarrhea hives nausea rash Not available Not available Not available Not available low 10/16/20252021 55088 8 RxNorm Other react ion(s ): Unkno wn Not Available [employer] - prod 5 09:56:51 013058 lisinopri l medicatio n Not available Not available Not available 10/16/20252021 69582 RxNorm Other react ion(s ): edema Not Available [employer] [facility] prod 5 09:56:51 752102 pregabali n medicatio n itching swelling Not available Not available high 10/16/20252023 32404 2 RxNorm Not Available [employer] [facility] - prod 5 09:56:[address] medicatio n rash Not available low 10/16/20252021 62561 RxNorm Not Available [employer] - prod 5 09:56:51 766674 omalizuma b medicatio n anaphylax is Not available high 10/16/20252021 17027 9 RxNorm Not Available [employer] - prod 5 09:56:51 808850 penicilli n G Not available Not available Not available Not available 10/16/20252021 7980 RxNorm Other react ion(s ): Unkno wn Not Available [employer] - prod 5 09:56:51 945850 pravastat in medicatio n rash Not available low 10/16/20252021 02373 RxNorm Not Available [employer] - prod 5 09:56:51 821653 semagluti de medicatio n Not available Not available Not available 10/16/20252021 14892 02 RxNorm Other react ion(s ): N and V Not Available [employer] - prod 5 09:56:51 193956 spironola ctone medicatio n rash Not available low 10/16/20252021 9997 RxNorm Not Available [employer] - prod 5 09:56:51 417898 sulfameth oxazole / trimethop rim medicatio n anaphylax is Not available high 10/16/20252021 32110 RxNorm Not Available [employer] - prod 5 09:56:51 010842 sumatript an medicatio n Not available Not available Not available 10/16/20252021 02309 RxNorm Other react ion(s ): eleva hanny blood press ure Not Available [employer] - prod 5 09:56:51 470587 acetamino phen medicatio n hives Not available Not available 10/16/20252021 161 RxNorm Other react ion(s ): facia l swell ing Not Available [employer]ain - [employer] - prod 5 09:56:51 997171 vortioxet ine hydrobrom bora medicatio n anxiety swelling Not available Not available low 10/16/20252024 07336 34 RxNorm Not Available [employer]ain - [employer] - prod 5 09:56:51 069918 ascorbic acid / cholecalc iferol / folic acid / niacin / riboflavi n / sodium fluoride / thiamine / vitamin A / vitamin B12 / vitamin B6 / vitamin E medicatio n Not available Not available Not available 10/16/2025 59785 81 RxNorm Not Available [employer] - [employer] - prod 5 09:56:52 270402 sulfadiaz ine medicatio n Not available Not available Not available 10/16/2025 04240 RxNorm Not Available [employer] - prod 5 09:56:52 647831 aspirin medicatio n Not available Not available Not available 10/16/2025 1191 RxNorm Not Available [employer] - prod 5 09:56:52 722091 Non-stero idal anti-infl ammatory agent (substanc e) medicatio n Not available Not available Not available 10/16/2025 35324 5008 SNOMED Not Available [employer] - [employer] - prod 5 09:56:52 131747 Iodinated contrast media (substanc e) medicatio n Not available Not available Not available 10/16/2025 41001 2004 SNOMED Not Available [employer] - [employer] - prod 5 09:56:52 560368 Victoza medicatio n diarrhea hives nausea Not available Not available Not available Not available 10/19/20252024 89730 3 RxNorm unrec ogniz ed react ion (text : Rash, code: 15588 5008) (from exter nal sourc e) Not Available [employer] - [employer] - prod 5 03:58:07 793434 Ozempic medicatio n diarrhea hives nausea Not available Not available Not available Not available 10/19/202520243 07 RxNorm unrec ogniz ed react ion (text : Rash, code: 62918 5008) (from exter nal sourc e) Not Available [employer]ain [employer] - prod 5 03:58:07 189412 Lasix medicatio n dyspnea hives Not available Not available Not available 10/19/20252024 1 RxNorm unrec ogniz ed react ion (text : Rash, code: 29786 5008) (from exter nal sourc e) Not Available [employer]ain - [employer] - prod 5 03:58:07 074527 Tylenol medicatio n Not available Not available Not available 10/19/2025202443 3 RxNorm Not Available [facility] [employer] - prod 5 03:58:07 957915 Singulair medicatio n Not available Not available Not available 10/19/20252024 40983 9 RxNorm Not Available dain - [employer] - prod 5 03:58:07 17304 Product containin g penicilli n (product) medicatio n Not available Not available Not available 01/07/20242010 45664 8001 SNOMED Aller gyRea ction : 'Skin React ion, Nause a/Vom iting /Diar gustavo' ; Not Available [facility] 4 15:13:20 49216 amoxicill in trihydrat e medicatio n Not available Not available Not available 01/07/20242010 79485 8 RxNorm Aller gyRea ction : 'Skin React ion'; Not Available [facility] 4 15:13:20 Medications Name Authored On Sig [...] availab le 0 Not Available Not Available [facility] 03/27/2024 13:58:40 gluco se 4 gram chewa ble table t 4 13:58:40 CHEW 4 TABL ETS (16 G) IF NEED ED FOR LOW BLOO D SUGA R. active Not Available Not availab le 0 Not Available Not Available [facility] 03/27/2024 13:58:40 BD Insul in Syrin ge Ultra -Fine 0.3 mL 30 gauge x 1/2 4 05:56:[address] 1-4 TIME S ANUJ Y DIRE CTED . active Not Available Not availab le 0 Not Available Not Available [facility] 10/08/2024 05:56:15 insul in aspar t U-100 100 unit/ mL subcu taneo us solut ion 4 05:56:15 PLEA SE SEE ANIL CHED FOR DETA ILED DIRE CTIO NS active Not Available Not availab le 0 Not Available Not Available [facility] 10/08/2024 05:56:15 clind amyci n HCl 150 [...] 0 Not Available DOMENIC GUILLEN [place] - [facility] 07/15/2025 14:55:23 Alcoh ol Prep Pads 5 16:03:54 TEST ANUJ Y BEFO RE ALL MEAL S/SN ACKS AND ONCE BEFO RE BEDT ROBERT. active Not Available Not availab le 0 Not Available Not Available [employer]ain - [employer] - prod 10/16/2025 16:03:54 clona zepam 1 mg table t 5 16:03:54 TAKE 1 TABL ET BY MOUT H THRE E TIME S A DAY NEED ED active Not Available Not availab le 0 Not Available Not Available [employer]ain - [employer] - prod 10/16/2025 16:03:54 Humal og KwikP en (U-10 0) Insul in 100 unit/ mL subcu taneo 5 16:03:[address] 15 UNIT S [...] in 100 unit/ mL (3 mL) subcu [facility] 5 16:03:[address] 82 [...] levot hyrox ine 200 mcg table t 16:03:55 TAKE 1 TABL ET (200 MCG) BY ROBIN Richard ONCE PER DAY. active Not Available Not availab le 0 Not Available Not Available [employer]ain - [employer] - prod 10/16/2025 16:03:55 losar up 100 mg table t 16:03:55 TAKE 1 TABL ET BY ROBIN LESLIE Y active Not Available Not availab le 0 Not Available Not Available [employer]ain - [employer] - prod 10/16/2025 16:03:55 Fidelia 2nd Gen Pen Needl e 32 gauge x 16:03:[address] 1 EACH UNDE R THE SKIN 4 TIME S ANUJ Y. active Not Available Not availab le 0 Not Available Not Available [employer]ain - [employer] - prod 10/16/2025 16:03:55 doxyc yclin e monoh ydrat e 100 mg capsu le 16:03:56 TAKE ONE PILL BY ROBIN Richard AFTE R LUNC H AND DINN ER [...] availab le 0 Not Available DOMENIC GUILLEN [facility] 10/19/2025 15:42:26 clotr imazo le-be tamet hason e 1 %-0.0 5 % topic al cream 4 06:50:23 APPL Y TO AFFE CTED AREA TWIC E A DAY FOR 14 DAYS 03/26 aborted Not Available Not availab le 0 Not Available DOMENIC GUILLEN [facility] 10/19/2025 15:42:26 docus ate sodiu m 100 mg capsu le 5 05:54:57 TAKE 1 CAPS ULE BY MOUT H TWIC E A DAY 03/26 aborted Not Available Not availab le 0 Not Available DOMENIC GUILLEN [facility] 10/19/2025 15:42:26 doxep in 6 mg table t 5 15:42:26 03/26 aborted Not Available Not availab le 0 Not Available DOMENIC GUILLEN [facility] 10/19/2025 15:42:26 ethac rynic acid 25 mg table t 13:58:40 TAKE 6 TABL ETS BY ROBIN SMITH E A DAY 03/26 aborted Not Available Not availab le 0 Not Available DOMENIC GUILLEN [facility] 10/19/2025 15:42:26 fluti jethro e propi aries 220 mcg/a ctuat ion HFA aeros ol inhal er 15:42:26 03/26 aborted Not Available Not availab le 0 Not Available DOMENIC ORANTESLISASHAISTA [facility] 10/19/2025 15:42:26 Inveg a Suste nna 117 mg/0. 75 mL intra muscu lar syrin ge 15:42:26 03/26 aborted Not Available Not availab le 0 Not Available DOMENIC ORANTESLISASHAISTA [facility] 10/19/2025 15:42:26 Inveg a Suste nna 156 mg/mL intra muscu lar syrin ge 15:42:26 03/26 aborted Not Available Not availab le 0 Not Available DOMENIC EBONYLEOViri [facility] 10/19/2025 15:42:26 levof loxac in 250 mg table t 15:42:26 03/26 aborted Not Available Not availab le 0 Not Available DOMENIC ORANTESLISALEOViri [facility] 10/19/2025 15:42:26 levof loxac in 750 mg table t 15:42:26 03/26 aborted Not Available Not availab le 0 Not Available DOMENIC ORANTESLISASHAISTA [facility] 10/19/2025 15:42:26 levot hyrox ine 175 mcg capsu le 15:42:26 03/26 aborted Not Available Not availab le 0 Not Available [facility] 10/19/2025 15:42:26 Myrbe triq 25 mg table t,ext ended relea se 15:42:26 03/26 aborted Not Available Not availab le 0 Not Available DOMENIC GUILLEN [facility] 10/19/2025 15:42:26 nitro furan toin monoh ydrat e/mac rocry stals 100 mg capsu le 15:42:26 03/26 aborted Not Available Not availab le 0 Not Available DOMENIC GUILLEN [facility] 10/19/2025 15:42:26 olanz apine 10 mg table t 15:42:26 03/26 aborted Not Available Not availab le 0 Not Available DOMENIC GUILLEN [facility] 10/19/2025 15:42:26 cecy srinivasan 8 mg table t 15:42:26 03/26 aborted Not Available Not availab le 0 Not Available DOMENIC GUILLEN [facility] 10/19/2025 15:42:26 topir amate 100 mg table t 15:42:26 03/26 aborted Not Available Not availab le 0 Not Available DOMENIC GUILLEN [facility] 10/19/2025 15:42:26 Trint ellix 5 mg table t 15:42:26 03/26 aborted Not Available Not availab le 0 Not Available DOMENIC GUILLEN [facility] 10/19/2025 15:42:26 buspi jocy 5 mg table t 15:42:27 03/26 aborted Not Available Not availab le 0 Not Available DOMENIC GUILLEN [facility] 10/19/2025 15:42:27 chlor thali done 25 mg table t 15:42:27 03/26 aborted Not Available Not availab le 0 Not Available DOMENIC [facility] 10/19/2025 15:42:27 perla calci ferol (renuka min D3) 25 mcg (1,00 0 unit) table t 16:03:56 TAKE 1 TABL ET (25 MCG) BY ROBIN Richard IN THE MORN ING 03/26 aborted Not Available Not availab le 0 Not Available DOMENIC GUILLEN [facility] 10/19/2025 15:42:27 cloni dine HCl 0.1 mg table t 15:42:27 03/26 aborted Not Available Not availab le 0 Not Available DOMENIC GUILLEN [facility] 10/19/2025 15:42:27 clotr imazo le 1 % topic al cream 15:59:28 APPL Y TO AFFE CTED AREA TWIC E A DAY FOR 14 DAYS 03/26 aborted Not Available Not availab le 0 Not Available DOMENIC GUILLEN [facility] 10/19/2025 15:42:27 Fiasp FlexT ouch U-100 Insul in 100 unit/ mL (3 mL) subcu taneo us pen 15:42:27 03/26 aborted Not Available Not availab le 0 Not Available DOMENIC GUILLEN [facility] 10/19/2025 15:42:27 fluco nazol e 150 mg table t 15:42:27 03/26 aborted Not Available Not availab le 0 Not Available DOMENIC GUILLEN [facility] 10/19/2025 15:42:27 gabap entin 600 mg table t 15:42:27 03/26 aborted Not Available Not availab le 0 Not Available DOMENIC GUILLEN [facility] 10/19/2025 15:42:27 Inveg a Suste nna 234 mg/1. 5 mL intra muscu lar syrin ge 15:42:27 03/26 aborted Not Available Not availab le 0 Not Available DOMENIC GUILLEN [facility] 10/19/2025 15:42:27 Lybal vi 5 mg-10 mg table t 15:42:27 03/26 aborted Not Available Not availab le 0 Not Available DOMENIC ORANTESLISASHAISTA [facility] 10/19/2025 15:42:27 metro nidaz ole 500 mg table t 15:42:27 03/26 aborted Not Available Not availab le 0 Not Available DOMEINC EBONYSHAISTA [facility] 10/19/2025 15:42:27 Myrbe triq 50 mg table t,ext ended relea se 15:42:27 03/26 aborted Not Available Not availab le 0 Not Available [facility] 10/19/2025 15:42:27 prazo sin 1 mg capsu le 15:42:27 03/26 aborted Not Available Not availab le 0 Not Available [facility] 10/19/2025 15:42:27 prega balin 25 mg capsu le 15:42:27 03/26 aborted Not Available Not availab le 0 Not Available DOMENIC LARLISASHAISTA [facility] 10/19/2025 15:42:27 Pulmi johnnie Flexh aler 180 mcg/a ctuat ion breat h activ ated 15:42:27 03/26 aborted Not Available Not availab le 0 Not Available DOMENIC LAMBERTOBEVERLY [facility] 10/19/2025 15:42:27 rispe ridon e 0.5 mg table t 15:42:27 03/26 aborted Not Available Not availab le 0 Not Available DOMENIC [facility] 10/19/2025 15:42:27 rispe ridon e 1 mg table t 15:42:27 03/26 aborted Not Available Not availab le 0 Not Available [facility] 10/19/2025 15:42:27 Trint ellix 10 mg table t 15:42:27 03/26 aborted Not Available Not availab le 0 Not Available DOMENIC GUILLEN [facility] 10/19/2025 15:42:27 Trint ellix 20 mg table t 05:54:57 TAKE 1 TABL ET (20 MG) BY MOUT H ONCE PER DAY. 03/26 aborted Not Available Not availab le 0 Not Available DOMENIC GUILLEN [facility] 10/19/2025 15:42:27 vilaz odone 40 mg table t 15:42:27 03/26 aborted Not Available Not availab le 0 Not Available DOMENIC GUILLEN [facility] 10/19/2025 15:42:27 Vrayl ar 6 mg capsu le 15:42:27 03/26 aborted Not Available Not availab le 0 Not Available DOMENIC GUILLEN [facility] 10/19/2025 15:42:27 Vitals Date Recorded Body height Provider Name an d Address Organization Details Last Updated DateTime 10/19/2025 157.48 cm DOMENIC GUILLEN [facility] 10/19/2025 15:42:06 Social History Social History Observation Description Date Observed Sex Unknown 10/19/2025 Legal Sex Female Status Not (finding) 10/27/20 [...] Disease N Heart Trouble N Heart Attack ([place]) N Gastrointestinal Disease N Cholesterol Y Diabetes [...] ICD10 Code Diagnosis IMO Codes Diagnosis Note [id number] LEEANN Ribeiro Clinical [address] [place] [address] 10/19/2025 15:35:01 10/20/2025 12:07:08 Osteoarthritis of left knee joint [id number] 04819 M17.12 5652277 Osteoarthr itis of right knee joint [id number] 25804 M17.11 [id number] Health Concerns Section Related Observation LastModified by Organization Detai ls LastModified Time None Recorded Concern Status LastModified by Organization Details LastModified Time None Recorded SDOH Concern Status LastModified by Organization Detai ls LastModified Time None Recorded Payers Encounter Date Sequence Insurance Name Policy Number Policy Palafox Covered Member ID Palafox Member ID Guarantor Name 10/19/2025 1 [place] B[place]: [employer] Sebastián A Laporte [id number] Sebastián A Laporte 10/19/2025 2 [place] [facility] Sebastián A Laporte [id number] Sebastián [employer] Laporte Notes Date Note Type Note Provider Name [...] pneumatic compression devices. Robert Conde PA-C [address], [place], [address], [facility] - [facility] 10/20/2025 12:07:06 Care Team Name Role Member ID Specialty Address Phone LIANNA PANCHAL NP Primary Care Provider [id number] [facility], [place], [place] OBGyn Episode No OBEpisode recorded.
== END 2025-10-27 14:16 | disposition home or self-care (01) ==
LOC: HO.ENCR 13:14
PROVIDERS: PCP Internal Medicine; Visit Provider Student in an Organized Health Care Education/Training Program
DX: Z68.44 Body mass index [BMI] 60.0-69.9, adult (principal); E11.8 Type 2 diabetes mellitus with unspecified complications; E06.3 Autoimmune thyroiditis
CPT/HCPCS: 99214; G2211

== ENCOUNTER → 2025-10-27 13:13 | Outpatient (BNVA) | payer MEDICARE, MEDICAID, SELFPAY | PROVIDERS: PCP Internal Medicine; Visit Provider Student in an Organized Health Care Education/Training Program | DX: E11.9 Type 2 diabetes mellitus without complications (principal); E03.9 Hypothyroidism, unspecified | CPT/HCPCS: 82947; 83036; 99212 ==